=== PATIENT | female | born 1970 | race Caucasian/White ===

== ENCOUNTER 2020-06-20 14:20 | Inpatient (IN) | payer OTHER, SELFPAY ==
--- NOTE | 2020-06-20 | XR_ITS ---
EXAMINATION: XR CHEST CLINICAL INFORMATION: Shortness of breath COMPARISON: Chest x-ray 06/02/2020 TECHNIQUE: Frontal portable view of the chest was obtained. 2:43 PM FINDINGS: No significant abnormality is noted involving the heart, lungs, mediastinum, bony thorax or soft tissues. IMPRESSION: Unremarkable examination.
--- NOTE | 2020-06-20 14:49 | ED.ASTHMA ---
HPI - Asthma General Chief Complaint: Asthma <DANA Saab - Last Filed: 06/20/20 18:05> Stated Complaint: asthma <DANA Saab - Last Filed: 06/20/20 18:05> Time Seen by Provider: 06/20/20 14:41 <DANA Saab Last Filed: 06/20/20 18:05> Source: patient <DANA Saab Last Filed: 06/20/20 18:05> Mode of arrival: ambulatory <DANA Saab - Last Filed: 06/20/20 18:05> Limitations: no limitations <DANA Saab Last Filed: 06/20/20 18:05> History of Present Illness HPI Narrative: 48 y/o female with severe, poorly controlled asthma with multiple admissions to the hospital for ashma exacerbation (last 06/02-/06/04) presenting with wheezing and SOB for the last 4 days after exposure to bleach at work, of which she reports she is allergic to. This is a known trigger for her asthma. She has been compliant with her nebs and Breo inhaler. She also took prednisone 20 mg today and yesterday. No fever, chills. Cough is bringing up white mucus, no blood. <DANA Saab - Last Filed: 06/20/20 18:05> MD complaint: asthma attack and shortness of breath <DANA Saab - Last Filed: 06/20/20 18:05> Onset (ago): day(s) (4) <DANA Saab - Last Filed: 06/20/20 18:05> Severity: moderate <DANA Saab Last Filed: 06/20/20 18:05> Context: allergen exposure and cleaning product exposure <DANA Saab Last Filed: 06/20/20 18:05> Associated symptoms: productive cough and chest pain <DANA Saab Last Filed: 06/20/20 18:05> Asthma History: adult onset, history of frequent attacks, history of prior ED visit and followed by specialist <DANA Saab Last Filed: 06/20/20 18:05> Treatments Prior to Arrival: inhaled bronchodilator and inhaled steroid <DANA Saab Last Filed: 06/20/20 18:05> Related Data Current Asthma Therapy: inhaled bronchodilator, inhaled steroid and recent oral steroid <DANA Saab Last Filed: 06/20/20 18:05> Home Medications: Home Medications Medication Instructions Recorded Confirmed chlorpheniramine-pseudoephed 20 cap PO BID 06/20/20 06/20/20 [D-Amine-SR] folic acid 1 mg PO DAILY 06/20/20 06/20/20 hydrochlorothiazide 25 mg PO DAILY 06/20/20 06/20/20 loratadine 10 mg PO DAILY 06/20/20 06/20/20 <DANA Saab Last Filed: 06/20/20 18:05> Allergies/Adverse Reactions: Allergies Allergy/AdvReac Type Severity Reaction Status Date / Time hydromorphone [From DILAUDID] Allergy Severe SEIZURES Verified 06/20/20 14:26 oxycodone [OXYCODONE] Allergy Severe SEIZURES Verified 06/20/20 14:26 gabapentin [GABAPENTIN] Allergy Intermediate MUSCLE ACHE Verified 06/20/20 14:26 bupropion [From WELLBUTRIN] Allergy Unknown SEIZURES Verified 06/20/20 14:26 phenytoin [Dilantin] Allergy Unknown Unknown Verified 06/20/20 14:26 Wellbutrin Allergy Unknown Unknown Verified 06/20/20 14:26 ENVIRONMENTAL Allergy Unknown NONE Uncoded 06/04/20 17:41 From DILANTIN AdvReac Unknown BODY ACHES Uncoded 06/04/20 17:41 <DANA Saab Last Filed: 06/20/20 18:05> Review of Systems Review of Systems: Constitutional: No Fever, No Chills ENT/Mouth: No sore throat, No Rhinorrhea, No Swallowing Difficulty Eyes: No Eye Pain, No Swelling, No Redness Cardiovascular: positive Chest Pain with coughing, positive SOB, No Orthopnea, No Edema Respiratory: positive Cough Sputum, Wheezing, & dyspnea, no hemoptysis Gastrointestinal: No Nausea, No Vomiting, No Diarrhea, No abdominal Pain, No Hematochezia, No Melena Genitourinary: No Dysuria, No Urinary Frequency, No Hematuria Musculoskeletal: No joint pain, No Myalgias Skin: No Skin Lesions, No rash Neuro: No Weakness, No Numbness, No Dizziness, No Headache Psych: No Anxiety/Panic, No Depression Heme/Lymph: No Bruising, No Lymphadenopathy Endocrine: No Polyuria, No Polydipsia All other 10 point ROS are negative. <DANA Saab - Last Filed: 06/20/20 18:05> [facility] Past Medical History Attestation statement: The following information was validated with the patient. <DANA Saab - Last Filed: 06/20/20 18:05> Medical History: Medical History (Updated 06/20/20 @ 17:53 by DANA Saab) ADHD Alcohol abuse Asthma Cocaine abuse Epilepsy Fibromyalgia Tracheomalacia <DANA Saab - Last Filed: 06/20/20 18:05> Surgical History: Surgical History (Updated 06/20/20 @ 15:25 by DANA Saab) History of cholecystectomy Previous section <DANA Saab - Last Filed: 06/20/20 18:05> Social History Social History: Social History Advance Directives: No Advance Directives Information Provided: No <DANA Saab - Last Filed: 06/20/20 18:05> Physical Exam Vital Signs and I&O and Narrative: Vital Signs and I&O: Vital Signs Pulse 100 06/20/20 17:49 Resp 18 06/20/20 17:49 BP 123/72 06/20/20 17:49 Pulse Ox 93 06/20/20 17:49 Intake & Output 06/20/20 06/20/20 06/21/20 06:59 18:59 06:59 Intake Total 50 / 50 Balance 50 / 50 Intake: Intake, IV Amoun t 50 / 50 Magnesium Sulf ate/H2O 2 gm In 50 / 50 50 ml @ 50 mls /hr IV ONCE ONE Rx#:[id number] Appearance: Alert. Oriented X3. No acute distress. Eyes: Pupils equal, round and reactive to light. ENT: Pharynx normal. Neck: Normal inspection. Neck supple. CVS: Normal heart rate and rhythm. Pulses normal. Respiratory: No respiratory distress. Diffuse expiratory wheezing throughout, no rhonchi Abdomen: obese Soft and nontender. +BS x4 Skin: Skin warm and dry. Normal skin color. Normal skin turgor. No rashes. Extremities: No lower extremity edema. Neuro: Oriented X 3. No motor deficit. No sensory deficit. <DANA Saab - Last Filed: 06/20/20 18:05> Vital Signs and I&O: Vital Signs Pulse 100 06/20/20 17:49 Resp 18 06/20/20 17:49 BP 123/72 06/20/20 17:49 Pulse Ox 93 06/20/20 17:49 Intake & Output 06/20/20 06/20/20 06/21/20 06:59 18:59 06:59 Intake Total 50 / 50 Balance 50 / 50 Intake: Intake, IV Amoun t 50 / 50 Magnesium Sulf ate/H2O 2 gm In 50 / 50 50 ml @ 50 mls /hr IV ONCE ONE Rx#:[id number] <Rudy Fenton DO - Last Filed: 06/20/20 19:25> Course Course Hospital Course: 48 y/o with severe asthma here with SOB and wheezing x4 days. Non-toxic appearing during this visit compared to prior. No hypoxia or increased WOB. Diffusely wheezy - neb, IV steroids and mag ordered for now. Dispo pending results and improvement. <DANA Saab - Last Filed: 06/20/20 18:05> Reevaluation(s) Reevaluation #1: Pateint continues to be wheezy after steroids and mg. would like another nebulizer treatment - spoke with RT who will give now. <DANA Saab - Last Filed: 06/20/20 18:05> Time: 16:54 <DANA Saab - Last Filed: 06/20/20 18:05> Reevaluation #2: Continues to be wheezy and SOB after 1 neb treatments. Dropped sats to 80s and is now on 2L NC. Hospitalist TT for admission. <DANA Saab - Last Filed: 06/20/20 18:05> Time: 17:50 <DANA Saab - Last Filed: 06/20/20 18:05> MDM - Asthma Lab Data Result diagrams: : 06/20/20 15:24 06/20/20 15:24 <DANA Saab - Last Filed: 06/20/20 18:05> Labs: Lab Results 06/20/20 06/20/20 06/20/20 Range/Units 15:24 15:24 15:24 WBC 5.9 (4.8-10.8) X10*3/uL RBC 3.92 L (4.20-5.50) X10*6/uL Hgb 13.3 (12.0-16.0) g/dl Hct 39.2 (37-47) % MCV 100.0 H (80-98) fL MCH 33.9 H (27.0-33.0) pg MCHC 33.9 (31.0-35.0) g/dl RDW 13.3 (11.0-16.0) % Plt Count 286 (160-400) X10*3/uL MPV 9.7 (9.4-12.3) fL Immature Gran % (Auto) 0.2 (0.0-0.4) % Neut % (Auto) 57.1 (45-73) % Lymph % (Auto) 33.7 (20-40) % [place] % (Auto) 7.3 (2-11) % Eos % (Auto) 1.0 (0-4) % Baso % (Auto) 0.7 (0-2) % Neut # (Auto) 3.4 (2.0-8.3) X10*3/uL Lymph # (Auto) 2.0 (1.2-4.9) X10*3/uL [place] # (Auto) 0.4 (0.1-1.2) X10*3/uL Eos # (Auto) 0.1 (0.0-0.4) X10*3/uL Baso # (Auto) 0.0 (0.0-0.2) X10*3/uL Abs Immat Gran (auto) 0.01 (0.00-0.03) X10*3/uL Absolute Nucleated RBC 0.000 (0.0-0.012) X10*3/uL Nucleated RBC % (auto) 0.0 (0.0-0.2) /100WBC Sodium 144 (135-145) mmol/L Potassium 3.5 (3.3-5.1) mmol/l Chloride 110 H (96-108) mmol/L Carbon Dioxide 23 (22-29) mmol/L Anion Gap 15 (12-20) BUN 7 L (9-16) mg/dL Creatinine 0.82 (0.5-1.4) mg/dL Estim Creat Clear Calc TNP Estimated GFR > 60 Random Glucose 172 H (60-115) mg/dL Calcium 8.7 (8.4-10.2) mg/dL Total Bilirubin 0.2 (0.0-1.0) mg/dL Direct Bilirubin < 0.2 (0.0-0.5) mg/dL AST 30 (5-31) U/L ALT 42 H (0-31) U/L Alkaline Phosphatase 67 (39-117) U/L B-Natriuretic Peptide 12 (<100) pg/mL Total Protein 6.5 (6.5-8.0) g/dL Albumin 4.1 (3.5-5.0) g/dL Lipase 8 (8-78) U/L Ethyl Alcohol mg/dL 06/20/20 Range/Units 15:24 WBC (4.8-10.8) X10*3/uL RBC (4.20-5.50) X10*6/uL Hgb (12.0-16.0) g/dl Hct (37-47) % MCV (80-98) fL MCH (27.0-33.0) pg MCHC (31.0-35.0) g/dl RDW (11.0-16.0) % Plt Count (160-400) X10*3/uL MPV (9.4-12.3) fL Immature Gran % (Auto) (0.0-0.4) % Neut % (Auto) (45-73) % Lymph % (Auto) (20-40) % [place] % (Auto) (2-11) % Eos % (Auto) (0-4) % Baso % (Auto) (0-2) % Neut # (Auto) (2.0-8.3) X10*3/uL Lymph # (Auto) (1.2-4.9) X10*3/uL [place] # (Auto) (0.1-1.2) X10*3/uL Eos # (Auto) (0.0-0.4) X10*3/uL Baso # (Auto) (0.0-0.2) X10*3/uL Abs Immat Gran (auto) (0.00-0.03) X10*3/uL Absolute Nucleated RBC (0.0-0.012) X10*3/uL Nucleated RBC % (auto) (0.0-0.2) /100WBC Sodium (135-145) mmol/L Potassium (3.3-5.1) mmol/l Chloride (96-108) mmol/L Carbon Dioxide (22-29) mmol/L Anion Gap (12-20) BUN (9-16) mg/dL Creatinine (0.5-1.4) mg/dL Estim Creat Clear Calc Estimated GFR Random Glucose (60-115) mg/dL Calcium (8.4-10.2) mg/dL Total Bilirubin (0.0-1.0) mg/dL Direct Bilirubin (0.0-0.5) mg/dL AST (5-31) U/L ALT (0-31) U/L Alkaline Phosphatase (39-117) U/L B-Natriuretic Peptide (<100) pg/mL Total Protein (6.5-8.0) g/dL Albumin (3.5-5.0) g/dL Lipase (8-78) U/L Ethyl Alcohol 189 mg/dL <DANA Saab - Last Filed: 06/20/20 18:05> Lab Results 06/20/20 06/20/20 06/20/20 Range/Units 15:24 15:24 15:24 WBC 5.9 (4.8-10.8) X10*3/uL RBC 3.92 L (4.20-5.50) X10*6/uL Hgb 13.3 (12.0-16.0) g/dl Hct 39.2 (37-47) % MCV 100.0 H (80-98) fL MCH 33.9 H (27.0-33.0) pg MCHC 33.9 (31.0-35.0) g/dl RDW 13.3 (11.0-16.0) % Plt Count 286 (160-400) X10*3/uL MPV 9.7 (9.4-12.3) fL Immature Gran % (Auto) 0.2 (0.0-0.4) % Neut % (Auto) 57.1 (45-73) % Lymph % (Auto) 33.7 (20-40) % [place] % (Auto) 7.3 (2-11) % Eos % (Auto) 1.0 (0-4) % Baso % (Auto) 0.7 (0-2) % Neut # (Auto) 3.4 (2.0-8.3) X10*3/uL Lymph # (Auto) 2.0 (1.2-4.9) X10*3/uL [place] # (Auto) 0.4 (0.1-1.2) X10*3/uL Eos # (Auto) 0.1 (0.0-0.4) X10*3/uL Baso # (Auto) 0.0 (0.0-0.2) X10*3/uL Abs Immat Gran (auto) 0.01 (0.00-0.03) X10*3/uL Absolute Nucleated RBC 0.000 (0.0-0.012) X10*3/uL Nucleated RBC % (auto) 0.0 (0.0-0.2) /100WBC Sodium 144 (135-145) mmol/L Potassium 3.5 (3.3-5.1) mmol/l Chloride 110 H (96-108) mmol/L Carbon Dioxide 23 (22-29) mmol/L Anion Gap 15 (12-20) BUN 7 L (9-16) mg/dL Creatinine 0.82 (0.5-1.4) mg/dL Estim Creat Clear Calc TNP Estimated GFR > 60 Random Glucose 172 H (60-115) mg/dL Calcium 8.7 (8.4-10.2) mg/dL Total Bilirubin 0.2 (0.0-1.0) mg/dL Direct Bilirubin < 0.2 (0.0-0.5) mg/dL AST 30 (5-31) U/L ALT 42 H (0-31) U/L Alkaline Phosphatase 67 (39-117) U/L B-Natriuretic Peptide 12 (<100) pg/mL Total Protein 6.5 (6.5-8.0) g/dL Albumin 4.1 (3.5-5.0) g/dL Lipase 8 (8-78) U/L Ethyl Alcohol mg/dL 06/20/20 Range/Units 15:24 WBC (4.8-10.8) X10*3/uL RBC (4.20-5.50) X10*6/uL Hgb (12.0-16.0) g/dl Hct (37-47) % MCV (80-98) fL MCH (27.0-33.0) pg MCHC (31.0-35.0) g/dl RDW (11.0-16.0) % Plt Count (160-400) X10*3/uL MPV (9.4-12.3) fL Immature Gran % (Auto) (0.0-0.4) % Neut % (Auto) (45-73) % Lymph % (Auto) (20-40) % [place] % (Auto) (2-11) % Eos % (Auto) (0-4) % Baso % (Auto) (0-2) % Neut # (Auto) (2.0-8.3) X10*3/uL Lymph # (Auto) (1.2-4.9) X10*3/uL [place] # (Auto) (0.1-1.2) X10*3/uL Eos # (Auto) (0.0-0.4) X10*3/uL Baso # (Auto) (0.0-0.2) X10*3/uL Abs Immat Gran (auto) (0.00-0.03) X10*3/uL Absolute Nucleated RBC (0.0-0.012) X10*3/uL Nucleated RBC % (auto) (0.0-0.2) /100WBC Sodium (135-145) mmol/L Potassium (3.3-5.1) mmol/l Chloride (96-108) mmol/L Carbon Dioxide (22-29) mmol/L Anion Gap (12-20) BUN (9-16) mg/dL Creatinine (0.5-1.4) mg/dL Estim Creat Clear Calc Estimated GFR Random Glucose (60-115) mg/dL Calcium (8.4-10.2) mg/dL Total Bilirubin (0.0-1.0) mg/dL Direct Bilirubin (0.0-0.5) mg/dL AST (5-31) U/L ALT (0-31) U/L Alkaline Phosphatase (39-117) U/L B-Natriuretic Peptide (<100) pg/mL Total Protein (6.5-8.0) g/dL Albumin (3.5-5.0) g/dL Lipase (8-78) U/L Ethyl Alcohol 189 mg/dL <Rudy Fenton DO - Last Filed: 06/20/20 19:25> Discharge Plan Discharge Clinical Impression: Alcohol abuse Asthma Qualifiers: Asthma severity: severe Asthma persistence: persistent Asthma complication type: with acute exacerbation Qualified Code(s): J45.51 - Severe persistent asthma with (acute) exacerbation <DANA Saab - Last Filed: 06/20/20 18:05> Patient Disposition: Admitted As Inpatient <DANA Saab - Last Filed: 06/20/20 18:05>
[2020-06-20] MEDS: methylPREDNISolone Sod Succ/PF 125 MG/2 ML VIAL IVPUSH (15:27)
[2020-06-20] MEDS: Magnesium Sulfate/H2O 2 GM/50 ML PIGGYBACK IV (15:27)
[2020-06-20 15:38] LABS: MANUAL DIFF FLAG NO
[2020-06-20] MEDS: Albuterol/Iprat 2.5/0.5MG 3 ML AMPUL.NEB INHALE ×2 (15:39→17:00)
[2020-06-20 15:40] LABS: Basophils Percent Auto 0.7 % (0-2); Eosinophils Absolute Auto 0.1 X10*3/uL (0.0-0.4); Hematocrit 39.2 % (37-47); Hemoglobin 13.3 g/dl (12.0-16.0); Imm Gran Abs Auto 0.01 X10*3/uL (0.00-0.03); Imm Gran Pct Auto 0.2 % (0.0-0.4); Lymphocytes Percent Auto 33.7 % (20-40); Mean Corpuscular HGB Conc 33.9 g/dl (31.0-35.0); Mean Corpuscular Hemoglobin 33.9 pg (27.0-33.0); Mean Platelet Volume 9.7 fL (9.4-12.3); Monocytes Absolute Auto 0.4 X10*3/uL (0.1-1.2); Monocytes Percent Auto 7.3 % (2-11); Neutrophils Absolute Auto 3.4 X10*3/uL (2.0-8.3); Neutrophils Percent Auto 57.1 % (45-73); Platelet Count 286 X10*3/uL (160-400); Red Blood Count 3.92 X10*6/uL (4.20-5.50); Red Cell Distribution Width 13.3 % (11.0-16.0); White Blood Count 5.9 X10*3/uL (4.8-10.8)
[2020-06-20 16:04] LABS: Alanine Aminotransferase 42 U/L (0-31); Albumin Level 4.1 g/dL (3.5-5.0); Anion Gap 15 (12-20); Aspartate Amino Transferase 30 U/L (5-31); Bilirubin Direct < 0.2 mg/dL (0.0-0.5); Bilirubin Total 0.2 mg/dL (0.0-1.0); Blood Urea Nitrogen 7 mg/dL (9-16); Calcium 8.7 mg/dL (8.4-10.2); Carbon Dioxide 23 mmol/L (22-29); Chloride 110 mmol/L (96-108); Estimated Glomerular Filt Rate > 60; Ethanol 189 mg/dL; Glucose Random 172 mg/dL (60-115); Lipase 8 U/L (8-78); Potassium 3.5 mmol/l (3.3-5.1); Sodium 144 mmol/L (135-145); Total Protein 6.5 g/dL (6.5-8.0)
[2020-06-20 16:08] LABS: B Type Natriuretic Peptide 12 pg/mL (<100)
[2020-06-20 16:19] LABS: Alkaline Phosphatase 67 U/L (39-117)
[2020-06-20 17:49] VITALS: BP 123/72; PULSE 100; RESP 18; O2SAT 93
--- NOTE | 2020-06-20 19:56 | P.HPIM_ITS ---
History of Present Illness Date of Service: 06/20/20 Chief Complaint: shortness of breath this is a 49-year-old female with history of asthma / COPD who presents to the emergency department with shortness of breath. Patient states on Monday a co-worker was cleaning with bleach and she had an asthma attack. She is allergic to bleach. Since that time she reports being more short of breath. She has been using her nebulizer machine and her emergency stash of oral prednisone. She has intermittent cough primarily at night. She denies any associated fever or chills. She denies any recent sick contacts. In the emergency department she was afebrile. Lab work revealed no leukocytosis. Chest x-ray showed no evidence of pneumonia. She received IV Solu-Medrol and bronchodilator treatments but continued to have significant wheezing therefore the decision was made to admit her to the hospital for further management. She was initially requiring supplemental oxygen however on my evaluation she was saturating 95% on room air. Review of Systems Review of Systems: Yes all other systems are reviewed and are negative Constitutional: Constitutional: Denies chills and Denies fever(s) Cardiovascular: Cardiovascular: Denies chest pain and Reports dyspnea Respiratory: Respiratory: Reports cough and Reports dyspnea Gastrointestinal: Gastrointestinal: Denies abdominal pain, Denies nausea and Denies vomiting [facility] Medical History (Updated 06/20/20 @ 20:15 by DANA Garcia) ADHD Alcohol abuse Asthma-COPD overlap syndrome Cocaine abuse Epilepsy Fibromyalgia History of suicide attempt HTN (hypertension) Tracheomalacia Functional capacity: independent ambulation Pertinent family history: Diabetes, hypertension Surgical History (Updated 06/20/20 @ 15:25 by DANA Saab) History of cholecystectomy Previous section Social History (Updated 06/20/20 @ 20:11 by DANA Garcia) Alcohol intake: current Alcohol type: hard liquor Smoking Status: Former smoker Tobacco Type: Cigarette Smoking Quit Date: 04/19/2020 Substance Use Type: Crack/Cocaine and Marijuana Substance Use Frequency: Occasionally Advance Directives: No Advance Directives Information Provided: No Meds Allergies Allergy/AdvReac Type Severity Reaction Status Date / Time hydromorphone [From DILAUDID] Allergy Severe SEIZURES Verified 06/20/20 14:26 oxycodone [OXYCODONE] Allergy Severe SEIZURES Verified 06/20/20 14:26 gabapentin [GABAPENTIN] Allergy Intermediate MUSCLE ACHE Verified 06/20/20 14:26 bupropion [From WELLBUTRIN] Allergy Unknown SEIZURES Verified 06/20/20 14:26 phenytoin [Dilantin] Allergy Unknown Unknown Verified 06/20/20 14:26 Wellbutrin Allergy Unknown Unknown Verified 06/20/20 14:26 ENVIRONMENTAL Allergy Unknown NONE Uncoded 06/04/20 17:41 From DILANTIN AdvReac Unknown BODY ACHES Uncoded 06/04/20 17:41 Home Medications Medication Instructions Recorded Confirmed Type chlorpheniramine-pseudoephed 20 cap PO BID 06/20/20 06/20/20 History [D-Amine-SR] folic acid 1 mg PO DAILY 06/20/20 06/20/20 History hydrochlorothiazide 25 mg PO DAILY 06/20/20 06/20/20 History loratadine 10 mg PO DAILY 06/20/20 06/20/20 History Physical Exam Vital Signs and Narrative: Vital Signs: Last Vital Signs Pulse 100 06/20/20 17:49 Resp 18 06/20/20 17:49 BP 123/72 06/20/20 17:49 Pulse Ox 93 06/20/20 17:49 Const: Nutritional Appearance: well nourished Orientation/consciousness: patient oriented x3 HENMT: Head: Yes normocephalic and Yes atraumatic Eyes: Sclerae: sclerae normal Chest: Chest palpation & inspection: normal inspection of the chest Resp: Effort & Inspection: normal respiratory effort and able to speak in complete sentences Auscultation: wheezes throughout Cardio: Rate: regular rate Rhythm: regular rhythm GI: Palpation (GI): Soft to palpation and nontender Skin: General skin exam: no rashes or lesions noted Neuro: General: patient oriented x3 Cranial nerves: Yes CN's II-XII intact bilaterally and Yes Bilaterally intact EOM present Extrem: General: Yes normal to inspection Results Labs Labs: Laboratory Tests 06/20/20 06/20/20 06/20/20 15:24 15:24 15:24 WBC 5.9 RBC 3.92 L Hgb 13.3 Hct 39.2 MCV 100.0 H MCH 33.9 H MCHC 33.9 RDW 13.3 Plt Count 286 MPV 9.7 Immature Gran % (Auto) 0.2 Neut % (Auto) 57.1 Lymph % (Auto) 33.7 [place] % (Auto) 7.3 Eos % (Auto) 1.0 Baso % (Auto) 0.7 Neut # (Auto) 3.4 Lymph # (Auto) 2.0 [place] # (Auto) 0.4 Eos # (Auto) 0.1 Baso # (Auto) 0.0 Abs Immat Gran (auto) 0.01 Absolute Nucleated RBC 0.000 Nucleated RBC % (auto) 0.0 Sodium 144 Potassium 3.5 Chloride 110 H Carbon Dioxide 23 Anion Gap 15 BUN 7 L Creatinine 0.82 Estim Creat Clear Calc TNP Estimated GFR > 60 Random Glucose 172 H Calcium 8.7 Total Bilirubin 0.2 Direct Bilirubin < 0.2 AST 30 ALT 42 H Alkaline Phosphatase 67 B-Natriuretic Peptide 12 Total Protein 6.5 Albumin 4.1 Lipase 8 Ethyl Alcohol 06/20/20 15:24 WBC RBC Hgb Hct MCV MCH MCHC RDW Plt Count MPV Immature Gran % (Auto) Neut % (Auto) Lymph % (Auto) [place] % (Auto) Eos % (Auto) Baso % (Auto) Neut # (Auto) Lymph # (Auto) [place] # (Auto) Eos # (Auto) Baso # (Auto) Abs Immat Gran (auto) Absolute Nucleated RBC Nucleated RBC % (auto) Sodium Potassium Chloride Carbon Dioxide Anion Gap BUN Creatinine Estim Creat Clear Calc Estimated GFR Random Glucose Calcium Total Bilirubin Direct Bilirubin AST ALT Alkaline Phosphatase B-Natriuretic Peptide Total Protein Albumin Lipase Ethyl Alcohol 189 Assessment and Plan (1) Asthma-COPD overlap syndrome: Status: Acute acute exacerbation -IV solumedrol -scheduled and prn bronchodilators (2) HTN (hypertension): Qualifiers: Hypertension type: essential hypertension Qualified Code(s): I10 - Essential (primary) hypertension Status: Acute -BP controlled. -continue HCTZ (3) Epilepsy: Qualifiers: Epilepsy type: unspecified Intractability: not intractable Status epilepticus: without status epilepticus Qualified Code(s): G40.909 - Epilepsy, unspecified, not intractable, without status epilepticus Problem details: no longer on medications Status: Acute (4) Alcohol abuse: Status: Acute no history of etoh withdrawal. no current sign of withdrawal. -monitor on ciwa, start treatment if patient becomes symptomatic Quality VTE Deep Vein Thrombosis/Pulmonary Embolism Present on Admission: No
--- NOTE | 2020-06-20 19:57 | PC.NURSE ---
pt a&o, no sign of respiratory distress. pt sitting up in bed. pt is able to speak in full sentences. no retractions note. report given to receiving RN.
[2020-06-20 21:18] VITALS: BP 121/57; PULSE 104; RESP 18; TEMP 36.1; O2SAT 97
[2020-06-20] MEDS: hydrOXYzine HCL 10 MG TABLET PO (21:54)
[2020-06-20] MEDS: Enoxaparin Sodium 40 MG/0.4 ML SYRINGE SUBCUT (21:54)
[2020-06-20] MEDS: 0.9 % Sodium Chloride Flush 3 ML SYRINGE 2 ML IVFLUSH (21:55)
[2020-06-20 23:03] VITALS: BMI 34.1
[2020-06-20 23:20] VITALS: BP 135/78; PULSE 99; RESP 18; TEMP 36.9; O2SAT 95
[2020-06-20 23:40] VITALS: O2SAT 95
[2020-06-21 01:01] LABS: Glucose Urine UA >=1000 MG/DL (NEG); Leukocyte Esterase Urine NEG (NEG); Nitrite Urine NEG (NEG); Urine Blood TRACE (NEG); Urine Ketones 5 MG/DL (NEG); Urine Protein NEG (NEG-TRACE)
[2020-06-21 01:02] LABS: Appearance Urine CLEAR; Color Urine STRAW
[2020-06-21 01:09] LABS: Amphetamine Screen Urine Not Detected (Not Detect); Barbiturates, Urine Not Detected (Not Detect); Benzodiazepines Screen Urine Not Detected (Not Detect); Cannabinoid Screen Urine Not Detected (Not Detect); Cocaine Screen Urine Not Detected (Not Detect); Opiate Screen Urine Not Detected (Not Detect); Phencyclidine Screen Urine Not Detected (Not Detect); RBC Urine 0 /HPF (0); Squamous Epithelial Cell Urine 2+ /LPF; WBC Urine 0-2 /HPF (0-4)
[2020-06-21] MEDS: Albuterol Sulfate (0.083%) 2.5 MG/3 ML VIAL.NEB INHALE (01:33)
[2020-06-21 03:20] VITALS: BP 144/77; PULSE 93; RESP 18; TEMP 36.9; O2SAT 95
[2020-06-21 03:58] VITALS: O2SAT 95
[2020-06-21] MEDS: 0.9 % Sodium Chloride Flush 3 ML SYRINGE 2 ML IVFLUSH (07:26)
[2020-06-21] MEDS: Albuterol/Iprat 2.5/0.5MG 3 ML AMPUL.NEB INHALE ×2 (07:41→11:10)
[2020-06-21 07:45] VITALS: BP 147/89; PULSE 90; RESP 20; TEMP 36.4; O2SAT 94
[2020-06-21 08:00] VITALS: O2SAT 94
[2020-06-21 08:06] LABS: Estimated Average Glucose 134 mg/dL; Hemoglobin A1c % 6.3 %
[2020-06-21] MEDS: hydroCHLOROthiazide 25 MG TABLET PO (08:46)
[2020-06-21] MEDS: Folic Acid 1 MG TABLET PO (08:46)
[2020-06-21] MEDS: Loratadine 10 MG TABLET PO (08:46)
--- NOTE | 2020-06-21 10:09 | PM.DS ---
DS: Providers Provider Date of admission: 06/20/20 20:42 Primary care physician: Nonstaff Physician DS: Diagnosis Discharge Diagnosis (1) Asthma-COPD overlap syndrome: Status: Acute (2) HTN (hypertension): Status: Acute (3) Epilepsy: Status: Acute Problem details: no longer on medications (4) Alcohol abuse: Status: Acute (5) Acute asthma exacerbation: Status: Acute DS: Summary Hospital Course Hospital Course: patient was admitted for acute asthma / COPD exacerbation. She was given steroids and bronchodilators. Patient improved significantly now feels close to baseline. She will be discharged home on 5 more days of p.o. prednisone 40 mg daily. Time Spent with Patient Time attestation: Total time spent providing and/or coordinating discharge services: Quality: VTE Deep Vein Thrombosis/Pulmonary Embolism Present on Admission: No Physical Exam Vital Signs and I&O and Narrative: Vital Signs and I&O: Vital Signs Temp 97.6 F 06/21/20 07:45 Pulse 90 06/21/20 07:45 Resp 20 06/21/20 07:45 BP 147/89 H 06/21/20 07:45 Pulse Ox 94 06/21/20 08:00 Intake & Output 06/20/20 06/21/20 06/21/20 18:59 06:59 18:59 Intake Total 50 / 810 760 / 810 250 / 250 Output Total 500 / 500 300 / 300 Balance 50 / 310 260 / 310 -50 / -50 Urine Output (Aver age ml/kg/hr) 0.51 0.30 Weight 82.024 kg Intake: Intake, Oral [place] unt 760 / 760 250 / 250 Intake, IV Amoun t 50 / 50 Magnesium Sulf ate/H2O 2 gm In 50 / 50 50 ml @ 50 mls /hr IV ONCE ONE Rx#:[id number] Output: Output, Urine Am ount 500 / 500 300 / 300 Other: Meal Refused No NPO No Breakfast % Eate n 100% Urine Bathroom Urine Color Yellow Body Mass Index 34.1 Resp: Auscultation: clear to auscultation bilaterally and wheezes (minimal) Cardio: Rhythm: regular rhythm Heart sounds: S1 normal heart sound present and S2 normal heart sound present DS: Data Data Completed and Pending Labs on day of discharge: Labs from last 24 hours 06/21/20 06/21/20 06/20/20 00:50 00:50 15:24 WBC RBC Hgb Hct MCV MCH MCHC RDW Plt Count MPV Immature Gran % (Auto) Neut % (Auto) Lymph % (Auto) [place] % (Auto) Eos % (Auto) Baso % (Auto) Neut # (Auto) Lymph # (Auto) [place] # (Auto) Eos # (Auto) Baso # (Auto) Abs Immat Gran (auto) Absolute Nucleated RBC Nucleated RBC % (auto) Sodium Potassium Chloride Carbon Dioxide Anion Gap BUN Creatinine Estim Creat Clear Calc Estimated GFR Random Glucose Estimat Average Glucose 134 Hemoglobin A1c % 6.3 Calcium Total Bilirubin Direct Bilirubin AST ALT Alkaline Phosphatase B-Natriuretic Peptide Total Protein Albumin Lipase Urine Color STRAW Urine Appearance CLEAR Urine pH 6.0 Ur Specific [place] 1.010 Urine Protein NEG Urine Glucose (UA) >=1000 H Urine Ketones 5 Urine Blood TRACE Urine Nitrite NEG Ur Leukocyte Esterase NEG Urine RBC 0 Urine WBC 0-2 Ur Squamous Epith Cells 2+ Urine Bacteria NONE Urine Opiates Screen Not Detected Ur Barbiturates Screen Not Detected Ur Phencyclidine Scrn Not Detected Ur Amphetamines Screen Not Detected U Benzodiazepines Scrn Not Detected Urine Cocaine Screen Not Detected U Marijuana (THC) Screen Not Detected Ethyl Alcohol 06/20/20 06/20/20 06/20/20 15:24 15:24 15:24 WBC RBC Hgb Hct MCV MCH MCHC RDW Plt Count MPV Immature Gran % (Auto) Neut % (Auto) Lymph % (Auto) [place] % (Auto) Eos % (Auto) Baso % (Auto) Neut # (Auto) Lymph # (Auto) [place] # (Auto) Eos # (Auto) Baso # (Auto) Abs Immat Gran (auto) Absolute Nucleated RBC Nucleated RBC % (auto) Sodium 144 Potassium 3.5 Chloride 110 H Carbon Dioxide 23 Anion Gap 15 BUN 7 L Creatinine 0.82 Estim Creat Clear Calc TNP Estimated GFR > 60 Random Glucose 172 H Estimat Average Glucose Hemoglobin A1c % Calcium 8.7 Total Bilirubin 0.2 Direct Bilirubin < 0.2 AST 30 ALT 42 H Alkaline Phosphatase 67 B-Natriuretic Peptide 12 Total Protein 6.5 Albumin 4.1 Lipase 8 Urine Color Urine Appearance Urine pH Ur Specific [place] Urine Protein Urine Glucose (UA) Urine Ketones Urine Blood Urine Nitrite Ur Leukocyte Esterase Urine RBC Urine WBC Ur Squamous Epith Cells Urine Bacteria Urine Opiates Screen Ur Barbiturates Screen Ur Phencyclidine Scrn Ur Amphetamines Screen U Benzodiazepines Scrn Urine Cocaine Screen U Marijuana (THC) Screen Ethyl Alcohol 189 06/20/20 15:24 WBC 5.9 RBC 3.92 L Hgb 13.3 Hct 39.2 MCV 100.0 H MCH 33.9 H MCHC 33.9 RDW 13.3 Plt Count 286 MPV 9.7 Immature Gran % (Auto) 0.2 Neut % (Auto) 57.1 Lymph % (Auto) 33.7 [place] % (Auto) 7.3 Eos % (Auto) 1.0 Baso % (Auto) 0.7 Neut # (Auto) 3.4 Lymph # (Auto) 2.0 [place] # (Auto) 0.4 Eos # (Auto) 0.1 Baso # (Auto) 0.0 Abs Immat Gran (auto) 0.01 Absolute Nucleated RBC 0.000 Nucleated RBC % (auto) 0.0 Sodium Potassium Chloride Carbon Dioxide Anion Gap BUN Creatinine Estim Creat Clear Calc Estimated GFR Random Glucose Estimat Average Glucose Hemoglobin A1c % Calcium Total Bilirubin Direct Bilirubin AST ALT Alkaline Phosphatase B-Natriuretic Peptide Total Protein Albumin Lipase Urine Color Urine Appearance Urine pH Ur Specific [place] Urine Protein Urine Glucose (UA) Urine Ketones Urine Blood Urine Nitrite Ur Leukocyte Esterase Urine RBC Urine WBC Ur Squamous Epith Cells Urine Bacteria Urine Opiates Screen Ur Barbiturates Screen Ur Phencyclidine Scrn Ur Amphetamines Screen U Benzodiazepines Scrn Urine Cocaine Screen U Marijuana (THC) Screen Ethyl Alcohol Discharge Plan Discharge Patient Disposition: Home, Self-Care Referrals: Physician,Nonstaff [Primary Care Provider] - Discharge Medications: New prednisone 20 mg tablet 40 mg PO DAILY Qty: 10 RF: 0 Continued chlorpheniramine-pseudoephed 8-120 mg Capsule,Extended Release 12 Hr 20 cap PO BID RF: 0 folic acid 1 mg Tablet 1 mg PO DAILY RF: 0 hydrochlorothiazide 25 mg Tablet 25 mg PO DAILY RF: 0 loratadine 10 mg Capsule 10 mg PO DAILY RF: 0 Discharge Orders: Discharge Order (Routine); Ordered 06/21/20 Ordered By: Leonidas Tejada Activity on Discharge: As tolerated Visit Report Forms: Patient Portal Discharge page Care Plan Goals: recovery Health Concerns: COPD/asthma Plan of Treatment: Prednisone
--- NOTE | 2020-06-21 10:33 | MHC.CM.PN ---
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 Patient has a history of SI, ADHD,ETOH and Cocaine (Grandchildren are cared for by their parents, not Patient and Patient's toxicology appears negative for drugs). Patient has already been medically cleared for dc to home, no services.PCP is Dr. Isabel Naqvi and Patient's is her HCP.
== END 2020-06-21 11:32 | disposition home or self-care (01) | DRG 202 ==
LOC: HO.ED 19:40 → HO.IMC 20:43
PROVIDERS: Physician Assistant; Physician Assistant Medical; Admitting Provider Internal Medicine; Visit Provider Internal Medicine
DX: J45.901 Unspecified asthma with (acute) exacerbation (principal); J44.1 Chronic obstructive pulmonary disease with (acute) exacerbation; I10 Essential (primary) hypertension; G40.909 Epilepsy, unspecified, not intractable, without status epilepticus; F10.10 Alcohol abuse, uncomplicated; Z87.891 Personal history of nicotine dependence; Z88.5 Allergy status to narcotic agent; Z79.899 Other long term (current) drug therapy
CPT/HCPCS: 36415; 71045; 80048; 80076; 80307; 80320; 81001; 81003; 83036; 83690; 83880; 85025; 96365; 96375; 99283; 99285; J1650; J2930; J3475

== ENCOUNTER 2020-07-26 20:03 | Inpatient (IN) | payer OTHER, SELFPAY ==
[2020-07-26 20:10] VITALS: BP 113/77; PULSE 110; RESP 26; TEMP 36.3; O2SAT 88; BMI 31.9
--- NOTE | 2020-07-26 20:45 | ECG_ITS ---
Test Reason : SOB Blood Pressure : / mmHG Vent. Rate : 104 BPM Atrial Rate : 104 BPM P-R Int : 154 ms QRS Dur : 102 ms QT Int : 396 ms P-R-T Axes : 063 040 065 degrees QTc Int : 520 ms Sinus tachycardia Nonspecific T wave abnormality Abnormal ECG When compared with ECG of 02-JUN-2020 13:19, Heart rate has increased T wave amplitude has decreased in Lateral leads Referred By: Generic ED Physician Electronically Signed By:MONIQUE BROOKS MD
--- NOTE | 2020-07-26 20:57 | XR_ITS ---
EXAMINATION: XR CHEST CLINICAL INFORMATION: Shortness of breath COMPARISON: 06/20/2020 TECHNIQUE: Frontal view of the chest was obtained. FINDINGS: No convincing significant abnormality is noted involving the heart, lungs, mediastinum, bony thorax or soft tissues. Some minimal left basilar atelectasis is present. XR/XR chest 1V IMPRESSION: No acute intrathoracic disease.
[2020-07-26] MEDS: Albuterol Sulfate (0.083%) 2.5 MG/3 ML VIAL.NEB 10 MG INHALE (21:04)
[2020-07-26 21:08] LABS: MANUAL DIFF FLAG NO
[2020-07-26 21:10] LABS: Basophils Absolute Auto 0.1 X10*3/uL (0.0-0.2); Basophils Percent Auto 0.6 % (0-2); Eosinophils Absolute Auto 0.3 X10*3/uL (0.0-0.4); Eosinophils Percent Auto 2.5 % (0-4); Hematocrit 37.7 % (37-47); Imm Gran Abs Auto 0.05 X10*3/uL (0.00-0.03); Imm Gran Pct Auto 0.4 % (0.0-0.4); Lymphocytes Absolute Auto 2.1 X10*3/uL (1.2-4.9); Lymphocytes Percent Auto 15.4 % (20-40); Mean Corpuscular HGB Conc 34.5 g/dl (31.0-35.0); Mean Corpuscular Hemoglobin 34.3 pg (27.0-33.0); Mean Corpuscular Volume 99.5 fL (80-98); Mean Platelet Volume 9.9 fL (9.4-12.3); Monocytes Absolute Auto 1.2 X10*3/uL (0.1-1.2); Monocytes Percent Auto 8.9 % (2-11); Neutrophils Percent Auto 72.2 % (45-73); Platelet Count 280 X10*3/uL (160-400); Red Blood Count 3.79 X10*6/uL (4.20-5.50); Red Cell Distribution Width 13.3 % (11.0-16.0); White Blood Count 13.9 X10*3/uL (4.8-10.8)
[2020-07-26] MEDS: methylPREDNISolone Sod Succ/PF 125 MG/2 ML VIAL IVPUSH (21:18)
[2020-07-26] MEDS: Magnesium Sulfate/H2O 2 GM/50 ML PIGGYBACK IV (21:18)
[2020-07-26 21:19] LABS: Glucose Urine UA NEG (NEG); Leukocyte Esterase Urine NEG (NEG); Nitrite Urine NEG (NEG); PH 5.5 (5.0-8.0); Urine Blood TRACE (NEG); Urine Ketones NEG (NEG); Urine Protein NEG (NEG-TRACE)
[2020-07-26 21:20] LABS: Appearance Urine CLEAR; Color Urine YELLOW
--- NOTE | 2020-07-26 21:23 | PC.NURSE ---
patient medicated per order
[2020-07-26 21:24] LABS: Bacteria Urine 1+ /LPF; RBC Urine 0-2 /HPF (0); Squamous Epithelial Cell Urine 1+ /LPF; WBC Urine 0 /HPF (0-4)
[2020-07-26 21:29] VITALS: BP 143/68; PULSE 105; RESP 22; TEMP 36.7; O2SAT 97
[2020-07-26 21:34] LABS: Anion Gap 15 (12-20); Blood Urea Nitrogen 6 mg/dL (9-16); Calcium 8.5 mg/dL (8.4-10.2); Carbon Dioxide 25 mmol/L (22-29); Chloride 106 mmol/L (96-108); Creatinine Clr Calc Pharmacy 95.1; Estimated Glomerular Filt Rate > 60; Glucose Random 128 mg/dL (60-115); Potassium 2.9 mmol/l (3.3-5.1); Sodium 143 mmol/L (135-145)
[2020-07-26 21:37] LABS: B Type Natriuretic Peptide 18 pg/mL (<100); Troponin-I High Sensitivity 5.3 ng/L (<3.5-17.0)
[2020-07-26 21:43] LABS: Lactic Acid 2.1 mmol/L (0.5-2.0)
[2020-07-26 22:00] VITALS: BP 112/50; PULSE 100; RESP 16; TEMP 36.9; O2SAT 3
--- NOTE | 2020-07-26 22:38 | ED.GENADULT ---
HPI - General Adult General Chief complaint: Dyspnea Stated complaint: asthma Time Seen by Provider: 07/26/20 20:51 Source: patient Mode of arrival: ambulatory Limitations: no limitations History of Present Illness HPI narrative: patient comes emergency room complaining of shortness of breath. Patient states her asthma has been acting up in the last couple of days. The worse it was today. Patient tried using several nebulization treatments, steroids with no relief. Patient called EMS because she was not getting any better and the wheezing kept getting worse. patient states that her cough is at baseline, no purulence in the sputum. MD complaint: Asthma exacerbation Related Data Home Medications Medication Instructions Recorded Confirmed hydrochlorothiazide 25 mg PO DAILY 06/20/20 07/26/20 albuterol sulfate 1 puff PO Q4H PRN 07/26/20 07/26/20 albuterol sulfate 3 ml INHALATION Q4-6H PRN 07/26/20 07/26/20 dextroamphetamine-amphetamine 1 tab PO BID 07/26/20 07/26/20 ipratropium-albuterol 3 ml INHALATION Q4-6H PRN 07/26/20 07/26/20 Allergies Allergy/AdvReac Type Severity Reaction Status Date / Time hydromorphone [From DILAUDID] Allergy Severe SEIZURES Verified 06/20/20 14:26 oxycodone [OXYCODONE] Allergy Severe SEIZURES Verified 06/20/20 14:26 gabapentin [GABAPENTIN] Allergy Intermediate MUSCLE ACHE Verified 06/20/20 14:26 bupropion [From WELLBUTRIN] Allergy Unknown SEIZURES Verified 06/20/20 14:26 phenytoin [Dilantin] Allergy Unknown Unknown Verified 06/20/20 14:26 Wellbutrin Allergy Unknown Unknown Verified 06/20/20 14:26 ENVIRONMENTAL Allergy Unknown NONE Uncoded 06/04/20 17:41 From DILANTIN AdvReac Unknown BODY ACHES Uncoded 06/04/20 17:41 Review of Systems Review of Systems: Constitutional : No Weight loss, No Fever, No Chills, No Night Sweats, No Fatigue, No Malaise ENT/Mouth : No Hearing loss, No Ear Pain, No Nasal Congestion, No Sinus Pain, No Hoarseness, No sore throat, No Rhinorrhea, No Swallowing Difficulty Eyes: No Eye Pain, No Swelling, No Redness, No Foreign Body, No Discharge, No Vision Changes Cardiovascular : No Chest Pain, No SOB, No Dyspnea on Exertion, No Orthopnea, No Edema, No Palpitations Respiratory : patient complaining of wheezing, dyspnea Gastrointestinal : No Nausea, No Vomiting, No Diarrhea, No Constipation, No abdominal Pain, No Hematochezia, No Melena Genitourinary : no irregular bleeding, No Dysuria, No Urinary Frequency, No Hematuria, No Urinary Incontinence, No Urgency, No Flank Pain, No Urinary Flow Changes, No Hesitancy Musculoskeletal : No joint pain, No Myalgias, No Joint Swelling Skin : No Skin Lesions, No rash Neuro : No Weakness, No Numbness, No Paresthesias, No Loss of Consciousness, No Dizziness, No Headache Psych : No Anxiety/Panic, No Depression, No SI/HI/AH/VH, No Social Issues, Heme/Lymph: No Bruising, No Bleeding,No Lymphadenopathy Endocrine : No Polyuria, No Polydipsia, No Temperature Intolerance PMFSH Past Medical History Medical History ADHD Alcohol abuse Asthma-COPD overlap syndrome Cocaine abuse Epilepsy Fibromyalgia History of suicide attempt HTN (hypertension) Sleep apnea Tracheomalacia Surgical History History of cholecystectomy Previous section Social History Social History (Updated 06/20/20 @ 20:11 by DANA Garcia) Household Members: Family Housing: House Alcohol intake: never Smoking Status: Former smoker Tobacco Type: Cigarette Use of substances other than those prescribed or required for medical reasons: Yes Substance Use Type: Marijuana Substance Use Frequency: Monthly Advance Directives: No Advance Directives Information Provided: No service: No Physical Exam Vital Signs: Vital Signs: Last Vital Signs Temp 98.1 F 07/26/20 21:29 Pulse 105 H 07/26/20 21:29 Resp 22 H 07/26/20 21: BP 143/68 H 07/26/20 21:29 Pulse Ox 97 07/26/20 21:29 Body Mass Index 31.9 Appearance: Alert. Oriented X3. No acute distress. Eyes: Pupils equal, round and reactive to light. ENT: Pharynx normal. Neck: Normal inspection. Neck supple. No lymph nodes noted. No crepitus CVS: Normal heart rate and rhythm. Pulses normal. Normal S1 and S2 Respiratory: Bilateral wheezing, moderate air movement Abdomen: Soft and nontender. No rigidity. No distention. good BS x4 Skin: Skin warm and dry. Normal skin color. Normal skin turgor. Extremities: No lower extremity edema. No lower extremity edema. No Lacerations. No Rash Neuro: Oriented X 3. No motor deficit. No sensory deficit. Moving all extermities. No slurred speech. Course Course Course Narrative: after an hour long treatment, patient's oxygen saturation remains 94-96%, wheezing improved but still present. Patient has history of asthma exacerbation and COPD, at this time COPD exacerbation is not suspected. Patient's wheezing likely secondary to an asthma exacerbation. Patient's lactic acid secondary from multiple nebulization treatments and white blood cell count secondary to steroids. One dose of empiric treatments will be given. Patient admitted to the hospital Medical Decision Making Lab Data Result diagrams: 07/26/20 20:58 07/26/20 20:58 Labs: Lab Results 07/26/20 07/26/20 07/26/20 Range/Units 20:58 20:58 20:58 WBC 13.9 H (4.8-10.8) X10*3/uL RBC 3.79 L (4.20-5.50) X10*6/uL Hgb 13.0 (12.0-16.0) g/dl Hct 37.7 (37-47) % MCV 99.5 H (80-98) fL MCH 34.3 H (27.0-33.0) pg MCHC 34.5 (31.0-35.0) g/dl RDW 13.3 (11.0-16.0) % Plt Count 280 (160-400) X10*3/uL MPV 9.9 (9.4-12.3) fL Immature Gran % (Auto) 0.4 (0.0-0.4) % Neut % (Auto) 72.2 (45-73) % Lymph % (Auto) 15.4 L (20-40) % [place] % (Auto) 8.9 (2-11) % Eos % (Auto) 2.5 (0-4) % Baso % (Auto) 0.6 (0-2) % Lymph # (Auto) 2.1 (1.2-4.9) X10*3/uL [place] # (Auto) 1.2 (0.1-1.2) X10*3/uL Eos # (Auto) 0.3 (0.0-0.4) X10*3/uL Baso # (Auto) 0.1 (0.0-0.2) X10*3/uL Abs Immat Gran (auto) 0.05 H (0.00-0.03) X10*3/uL Absolute Neuts (auto) 10.0 H (2.0-8.3) X10*3/uL Absolute Nucleated RBC 0.000 (0.0-0.012) X10*3/uL Nucleated RBC % (auto) 0.0 (0.0-0.2) /100WBC Hold Blue Top SEE NOTE Sodium 143 (135-145) mmol/L Potassium 2.9 L (3.3-5.1) mmol/l Chloride 106 (96-108) mmol/L Carbon Dioxide 25 (22-29) mmol/L Anion Gap 15 (12-20) BUN 6 L (9-16) mg/dL Creatinine 0.67 (0.5-1.4) mg/dL Estim Creat Clear Calc 95.1 Estimated GFR > 60 Random Glucose 128 H (60-115) mg/dL Lactic Acid (0.5-2.0) mmol/L Calcium 8.5 (8.4-10.2) mg/dL Troponin I High Sens (<3.5-17.0) ng/L B-Natriuretic Peptide (<100) pg/mL Urine Color Urine Appearance Urine pH (5.0-8.0) Ur Specific [place] (1.005-1.025) Urine Protein (NEG-TRACE) MG/DL Urine Glucose (UA) (NEG) MG/DL Urine Ketones (NEG) MG/DL Urine Blood (NEG) Urine Nitrite (NEG) Ur Leukocyte Esterase (NEG) Urine RBC (0) /HPF Urine WBC (0-4) /HPF Ur Squamous Epith Cells /LPF Urine Bacteria /LPF 07/26/20 07/26/20 07/26/20 Range/Units 20:58 21:07 21:07 WBC (4.8-10.8) X10*3/uL RBC (4.20-5.50) X10*6/uL Hgb (12.0-16.0) g/dl Hct (37-47) % MCV (80-98) fL MCH (27.0-33.0) pg MCHC (31.0-35.0) g/dl RDW (11.0-16.0) % Plt Count (160-400) X10*3/uL MPV (9.4-12.3) fL Immature Gran % (Auto) (0.0-0.4) % Neut % (Auto) (45-73) % Lymph % (Auto) (20-40) % [place] % (Auto) (2-11) % Eos % (Auto) (0-4) % Baso % (Auto) (0-2) % Lymph # (Auto) (1.2-4.9) X10*3/uL [place] # (Auto) (0.1-1.2) X10*3/uL Eos # (Auto) (0.0-0.4) X10*3/uL Baso # (Auto) (0.0-0.2) X10*3/uL Abs Immat Gran (auto) (0.00-0.03) X10*3/uL Absolute Neuts (auto) (2.0-8.3) X10*3/uL Absolute Nucleated RBC (0.0-0.012) X10*3/uL Nucleated RBC % (auto) (0.0-0.2) /100WBC Hold Blue Top Sodium (135-145) mmol/L Potassium (3.3-5.1) mmol/l Chloride (96-108) mmol/L Carbon Dioxide (22-29) mmol/L Anion Gap (12-20) BUN (9-16) mg/dL Creatinine (0.5-1.4) mg/dL Estim Creat Clear Calc Estimated GFR Random Glucose (60-115) mg/dL Lactic Acid 2.1 H* (0.5-2.0) mmol/L Calcium (8.4-10.2) mg/dL Troponin I High Sens 5.3 (<3.5-17.0) ng/L B-Natriuretic Peptide 18 (<100) pg/mL Urine Color YELLOW Urine Appearance CLEAR Urine pH 5.5 (5.0-8.0) Ur Specific [place] 1.020 (1.005-1.025) Urine Protein NEG (NEG-TRACE) MG/DL Urine Glucose (UA) NEG (NEG) MG/DL Urine Ketones NEG (NEG) MG/DL Urine Blood TRACE (NEG) Urine Nitrite NEG (NEG) Ur Leukocyte Esterase NEG (NEG) Urine RBC 0-2 (0) /HPF Urine WBC 0 (0-4) /HPF Ur Squamous Epith Cells 1+ /LPF Urine Bacteria 1+ /LPF Discharge Plan Discharge Clinical Impression: Asthma Patient Disposition: Admitted As Inpatient Prescriptions: No Action hydrochlorothiazide 25 mg Tablet 25 mg PO DAILY RF: 0 ipratropium-albuterol 0.5 mg-3 mg(2.5 mg base)/3 mL solution for nebulization 3 ml inhalation Q4-6H PRN (Reason: Shortness Of Breath Or Wheezing) RF: 0 albuterol sulfate 2.5 mg /3 mL (0.083 %) solution for nebulization 3 ml inhalation Q4-6H PRN (Reason: Shortness Of Breath Or Wheezing) RF: 0 dextroamphetamine-amphetamine 20 mg tablet 1 tab PO BID RF: 0 albuterol sulfate 90 mcg/actuation HFA aerosol inhaler 1 puff PO Q4H PRN (Reason: wheezing) RF: 0
[2020-07-26] MEDS: Potassium Chloride ER 20 MEQ TAB.ER.PRT 40 MEQ PO (22:48)
[2020-07-26] MEDS: levoFLOXacin/D5W 500 MG/100 ML PIGGYBACK 100 MG IV (22:49)
[2020-07-26 23:08] LABS: SARS COV2 PCR INHOUSE NEGATIVE (Negative)
[2020-07-26 23:16] LABS: Reflex Lactate? Lactic Acid Added
[2020-07-27] VITALS (9 sets, daily range): BP systolic 112–136; BP diastolic 64–88; PULSE 95–110; RESP 16–22; TEMP 36.6–37; O2SAT 3–96
--- NOTE | 2020-07-27 00:30 | PC.NURSE ---
PATIENT WAS GIVEN ICE CHIPS .
[2020-07-27 01:41] LABS: ~Lactic Acid-LAB USE ONLY 2.8 mmol/L (0.5-2.0)
[2020-07-27] MEDS: 0.9 % Sodium Chloride 1,000 ML 999 ML IVCONT (01:49)
[2020-07-27] MEDS: LORazepam 1 MG TABLET 2 MG PO (02:10)
[2020-07-27] MEDS: Albuterol Sulfate (0.083%) 2.5 MG/3 ML VIAL.NEB 5 MG INHALE (02:16)
[2020-07-27 03:12] LABS: Reflex Lactate? 2 Y
[2020-07-27 03:54] LABS: ~Lactic Acid-LAB USE ONLY 1.5 mmol/L (0.5-2.0)
[2020-07-27] MEDS: Albuterol Sulfate (0.083%) 2.5 MG/3 ML VIAL.NEB INHALE (04:36)
--- NOTE | 2020-07-27 05:25 | PM.IMHP ---
History of Present Illness Date of Service: 07/26/20 Chief Complaint: shortness of breath this is a 49-year-old female with past medical history of asthma/ COPD among others who presents to the hospital with complaints of shortness of breath. Patient reports that her symptoms started 1 week ago, associated with a cough, some sputum production that is yellow in color with no fever or chills, no chest pain, no abdominal pain nausea or vomiting, no diarrhea constipation. She reports that her daughter had pneumonia 1 week ago. Patient reports no recent travel. she has chronically had some cough and sputum production but has worsened over the past 1 week. She otherwise denies any urinary symptoms, no lower extremity edema, no orthopnea or PND. No weakness, numbness or tingling. On arrival to the ED hemodynamically stable with no significant abnormal vitals. Satting 88% on room air. Currently on 2 L satting 94%. labs significant for WBC count of 13.9, potassium of 2.9, lactic acid of 2.1, otherwise unremarkable Chest x-ray negative for any pneumonia, COVID-19 negative past medical history: Asthma /COPD overlap, tracheomalacia, ADHD, history of epilepsy, no longer on medication, fibromyalgia, history of suicide attempt past surgical history: Cholecystectomy, Family history: Diabetes and hypertension Social history: Comes from home, denies tobacco use, denies alcohol or illicit drugs Review of Systems Review of Systems: Yes all other systems are reviewed and are negative [facility] Medical History ADHD Alcohol abuse Asthma-COPD overlap syndrome Cocaine abuse Epilepsy Fibromyalgia History of suicide attempt HTN (hypertension) Sleep apnea Tracheomalacia Surgical History History of cholecystectomy Previous section Social History Household Members: Family Housing: House Alcohol intake: never Smoking Status: Former smoker Tobacco Type: Cigarette Use of substances other than those prescribed or required for medical reasons: Yes Substance Use Type: Marijuana Substance Use Frequency: Monthly Advance Directives: No Advance Directives Information Provided: No service: No Meds Allergies Allergy/AdvReac Type Severity Reaction Status Date / Time hydromorphone [From DILAUDID] Allergy Severe SEIZURES Verified 06/20/20 14:26 oxycodone [OXYCODONE] Allergy Severe SEIZURES Verified 06/20/20 14:26 gabapentin [GABAPENTIN] Allergy Intermediate MUSCLE ACHE Verified 06/20/20 14:26 bupropion [From WELLBUTRIN] Allergy Unknown SEIZURES Verified 06/20/20 14:26 phenytoin [Dilantin] Allergy Unknown Unknown Verified 06/20/20 14:26 Wellbutrin Allergy Unknown Unknown Verified 06/20/20 14:26 ENVIRONMENTAL Allergy Unknown NONE Uncoded 06/04/20 17:41 From DILANTIN AdvReac Unknown BODY ACHES Uncoded 06/04/20 17:41 Home Medications Medication Instructions Recorded Confirmed Type hydrochlorothiazide 25 mg PO DAILY 06/20/20 07/26/20 History albuterol sulfate 1 puff PO Q4H PRN 07/26/20 07/26/20 History albuterol sulfate 3 ml INHALATION Q4-6H PRN 07/26/20 07/26/20 History dextroamphetamine-amphetamine 1 tab PO BID 07/26/20 07/26/20 History ipratropium-albuterol 3 ml INHALATION Q4-6H PRN 07/26/20 07/26/20 History Physical Exam Vital Signs and Narrative: Vital Signs: Last Vital Signs Temp 97.8 F 07/27/20 04:00 Pulse 95 07/27/20 04:00 Resp 22 H 07/27/20 04:00 BP 124/77 07/27/20 04:00 Pulse Ox 96 07/27/20 04:00 Body Mass Index 31.9 Const: General: cooperative and no acute distress Orientation/consciousness: patient oriented x3 Eyes: General: appearance normal, both eyes and all related structures Pupils: Equal, round and reactive pupils present Resp: Effort & Inspection: normal respiratory effort, able to speak in complete sentences and audible wheezes Auscultation: wheezes Cardio: Rate: regular rate Rhythm: regular rhythm GI: Palpation (GI): Soft to palpation Auscultation: normal bowel sounds Skin: General skin exam: no rashes or lesions noted Neuro: General: patient oriented x3 Cranial nerves: Yes Equal, round and reactive pupils present Cognition (Neuro): normal cognition Extrem: General: Yes normal to inspection and Yes no pedal edema Results Labs CBC and Chem 7: 07/26/20 20:58 07/26/20 20:58 Labs: Laboratory Results - last 24 hr 07/26/20 07/26/20 07/26/20 20:58 20:58 20:58 MCV 99.5 H MCH 34.3 H MCHC 34.5 RDW 13.3 Plt Count 280 MPV 9.9 Immature Gran % (Auto) 0.4 Neut % (Auto) 72.2 Lymph % (Auto) 15.4 L [place] % (Auto) 8.9 Eos % (Auto) 2.5 Baso % (Auto) 0.6 Lymph # (Auto) 2.1 [place] # (Auto) 1.2 Eos # (Auto) 0.3 Baso # (Auto) 0.1 Abs Immat Gran (auto) 0.05 H Absolute Neuts (auto) 10.0 H Absolute Nucleated RBC 0.000 Nucleated RBC % (auto) 0.0 Hold Blue Top SEE NOTE Anion Gap 15 Estim Creat Clear Calc 95.1 Estimated GFR > 60 Random Glucose 128 H Lactic Acid Lactic Acid Fup @ 2Hr Lactic Acid Fup @ 4Hr Calcium 8.5 Troponin I High Sens B-Natriuretic Peptide Urine Color Urine Appearance Urine pH Ur Specific [place] Urine Protein Urine Glucose (UA) Urine Ketones Urine Blood Urine Nitrite Ur Leukocyte Esterase Urine RBC Urine WBC Ur Squamous Epith Cells Urine Bacteria Coronavirus (PCR) 07/26/20 07/26/20 07/26/20 20:58 21:07 21:07 MCV MCH MCHC RDW Plt Count MPV Immature Gran % (Auto) Neut % (Auto) Lymph % (Auto) [place] % (Auto) Eos % (Auto) Baso % (Auto) Lymph # (Auto) [place] # (Auto) Eos # (Auto) Baso # (Auto) Abs Immat Gran (auto) Absolute Neuts (auto) Absolute Nucleated RBC Nucleated RBC % (auto) Hold Blue Top Anion Gap Estim Creat Clear Calc Estimated GFR Random Glucose Lactic Acid 2.1 H* Lactic Acid Fup @ 2Hr Lactic Acid Fup @ 4Hr Calcium Troponin I High Sens 5.3 B-Natriuretic Peptide 18 Urine Color YELLOW Urine Appearance CLEAR Urine pH 5.5 Ur Specific [place] 1.020 Urine Protein NEG Urine Glucose (UA) NEG Urine Ketones NEG Urine Blood TRACE Urine Nitrite NEG Ur Leukocyte Esterase NEG Urine RBC 0-2 Urine WBC 0 Ur Squamous Epith Cells 1+ Urine Bacteria 1+ Coronavirus (PCR) 1107/27/20 07/27/20 21:54 01:05 03:22 MCV MCH MCHC RDW Plt Count MPV Immature Gran % (Auto) Neut % (Auto) Lymph % (Auto) [place] % (Auto) Eos % (Auto) Baso % (Auto) Lymph # (Auto) [place] # (Auto) Eos # (Auto) Baso # (Auto) Abs Immat Gran (auto) Absolute Neuts (auto) Absolute Nucleated RBC Nucleated RBC % (auto) Hold Blue Top Anion Gap Estim Creat Clear Calc Estimated GFR Random Glucose Lactic Acid Lactic Acid Fup @ 2Hr 2.8 H* Lactic Acid Fup @ 4Hr 1.5 Calcium Troponin I High Sens B-Natriuretic Peptide Urine Color Urine Appearance Urine pH Ur Specific [place] Urine Protein Urine Glucose (UA) Urine Ketones Urine Blood Urine Nitrite Ur Leukocyte Esterase Urine RBC Urine WBC Ur Squamous Epith Cells Urine Bacteria Coronavirus (PCR) NEGATIVE Imaging Radiologist's Impressions: Impressions Chest X-Ray 07/26/20 20:57 IMPRESSION: No acute intrathoracic disease. Assessment and Plan (1) Acute on chronic respiratory failure with hypoxia: Status: Acute (2) Acute asthma exacerbation: Status: Acute (3) Hypokalemia: Status: Acute (4) Lactic acidosis: Status: Acute (5) Asthma-COPD overlap syndrome: Status: Acute (6) HTN (hypertension): Qualifiers: Hypertension type: essential hypertension Qualified Code(s): I10 - Essential (primary) hypertension Status: Acute (7) ADHD: Status: Acute this is a 49-year-old female with past medical history of asthma/COPD who presents to the hospital with complaints of shortness of breath, cough, and sputum production. # acute hypoxic respiratory failure - secondary to COPD/ asthma exacerbation - COVID19 is negative, no pneumonia - satting 88% on room air, currently 94-96% on 2 L plan: - O2 supplement as required, treating underlying asthma / COPD exacerbation with Solu-Medrol, breathing treatment - monitor respiratory status # Asthma/ COPD exacerbation - most likely secondary to exposure to recently sick contact - COVID-19 negative, no pneumonia Plan: - will obtain respiratory viral panel - Solu-Medrol 40 IV b.i.d. - DuoNeb q.i.d. as well as p.r.n. - O2 as required # lactic acidosis - most likely secondary to breathing treatments versus hypoxia - patient has no evidence of infection, no hypotension, Plan: - IV fluids - trend lactic acid # hypokalemia will replete, and follow BMP # hypertension - stable - continue home regimen # ADHD - continue Adde rall DVT prophylaxis: Lovenox
[2020-07-27] MEDS: Lactated Ringers 1,000 ML 100 ML IVCONT ×2 (06:09→10:09)
[2020-07-27] MEDS: Potassium Chloride Packet 20 MEQ PACKET 40 MEQ PO (06:09)
[2020-07-27 08:04] LABS: Adenovirus PCR Not Detected (Not Detect.); Bordetella parapertussis PCR Not Detected (Not Detect.); Bordetella pertussis PCR Not Detected (Not Detect.); Chlamydia pneumoniae PCR Not Detected (Not Detect.); Coronavirus 229E PCR Not Detected (Not Detect.); Coronavirus HKU1 PCR Not Detected (Not Detect.); Coronavirus NL63 PCR Not Detected (Not Detect.); Coronavirus OC43 PCR Not Detected (Not Detect.); Human metapneumovirus PCR Not Detected (Not Detect.); Influenza A PCR Not Detected (Not Detect.); Influenza B PCR Not Detected (Not Detect.); Mycoplasma pneumoniae PCR Not Detected (Not Detect.); Parainfluenza 1 PCR Not Detected (Not Detect.); Parainfluenza 2 PCR Not Detected (Not Detect.); Parainfluenza 3 PCR Not Detected (Not Detect.); Parainfluenza 4 PCR Not Detected (Not Detect.); RSV PCR Not Detected (Not Detect.); Rhino/Enterovirus PCR Not Detected (Not Detect.); SARS-CoV-2 PCR Not Detected (Not Detect.)
[2020-07-27] MEDS: Albuterol/Iprat 2.5/0.5MG 3 ML AMPUL.NEB INHALE ×4 (09:18→19:02)
[2020-07-27 09:53] LABS: Basophils Percent Auto 0.2 % (0-2); Hematocrit 36.9 % (37-47); Hemoglobin 12.4 g/dl (12.0-16.0); Imm Gran Abs Auto 0.04 X10*3/uL (0.00-0.03); Imm Gran Pct Auto 0.3 % (0.0-0.4); Lymphocytes Absolute Auto 0.5 X10*3/uL (1.2-4.9); Lymphocytes Percent Auto 4.5 % (20-40); MANUAL DIFF FLAG SCAN; Mean Corpuscular HGB Conc 33.6 g/dl (31.0-35.0); Mean Corpuscular Hemoglobin 33.6 pg (27.0-33.0); Mean Platelet Volume 10.5 fL (9.4-12.3); Monocytes Absolute Auto 0.2 X10*3/uL (0.1-1.2); Monocytes Percent Auto 1.7 % (2-11); Neutrophils Absolute Auto 10.7 X10*3/uL (2.0-8.3); Neutrophils Percent Auto 93.3 % (45-73); Platelet Count 290 X10*3/uL (160-400); Red Blood Count 3.69 X10*6/uL (4.20-5.50); Red Cell Distribution Width 13.4 % (11.0-16.0); SCAN SMEAR FLAG 1; White Blood Count 11.5 X10*3/uL (4.8-10.8)
[2020-07-27] MEDS: Amphetamine Mixed Salts 20 MG TABLET PO ×2 (09:58→20:51)
[2020-07-27] MEDS: hydroCHLOROthiazide 25 MG TABLET PO (09:58)
[2020-07-27] MEDS: Enoxaparin Sodium 40 MG/0.4 ML SYRINGE SUBCUT (09:59)
[2020-07-27] MEDS: 0.9 % Sodium Chloride Flush 3 ML SYRINGE IVFLUSH ×3 (10:09→20:51)
[2020-07-27 10:16] LABS: Anion Gap 16 (12-20); Blood Urea Nitrogen 6 mg/dL (9-16); Calcium 8.4 mg/dL (8.4-10.2); Carbon Dioxide 21 mmol/L (22-29); Chloride 107 mmol/L (96-108); Creatinine Clr Calc Pharmacy 93.7; Estimated Glomerular Filt Rate > 60; Glucose Random 194 mg/dL (60-115); Potassium 4.1 mmol/l (3.3-5.1); Sodium 140 mmol/L (135-145)
[2020-07-27 10:28] LABS: SLIDE REVIEW VERIFIED
[2020-07-27] MEDS: Furosemide 20 MG/2 ML VIAL 10 MG IVPUSH (11:10)
[2020-07-27] MEDS: Flu Vacc QS2020-21(6mos up)/PF 0.5 ML SYRINGE IM (11:14)
--- NOTE | 2020-07-27 11:15 | P.PNIM_ITS ---
Subjective Subjective Date of Service: 07/27/20 Interval History: the patient was seen and evaluated this morning Laying in bed, feels comfortable Denies any fever, chills or shortness of breath No reported other overnight events. Review of Systems Review of Systems: Yes all other systems are reviewed and are negative Constitutional No fever, chills or weakness No chest pain, palpitation reporting shortness of breath and cou, wheezes No abdominal pain, nausea or vomiting No urinary symptoms No any rash or wounds Physical Exam Vital Signs: Vital Signs: Last Vital Signs Temp 98.5 F 07/27/20 08:00 Pulse 105 H 07/27/20 08:00 Resp 22 H 07/27/20 08:00 BP 133/85 07/27/20 08:00 Pulse Ox 95 07/27/20 08:00 Body Mass Index 31.9 Constitutional : Alert, oriented, not in distress Neck : Normal inspection, Supple Cardiovascular : RRR, S1 S2, no lower extremity edema Respiratory : decrease bilateral air entry, no crackles, bilateral wheezes and rhonchi Gastrointestinal: soft, lax, Normal bowel sounds, Non tender Skin : Warm/Dry, No rash Neurological : Alert & oriented x3, No focal deficit Objective Data Current Medications Generic Name Dose Route Start Last Admin Trade Name Freq PRN Reason Stop Dose Admin Acetaminophen 650 mg 07/27/20 08:54 Acetaminophen 325 Mg Tablet PO Q6H PRN Pain, Mild (Pain Scale 1-3) Albuterol/Ipratropium 3 ml 07/27/20 08:54 Albuterol/Iprat 2.5/0.5mg 3 Ml Ampul.Neb INHALE RQ4H PRN Shortness of Breath/Wheezing Albuterol/Ipratropium 3 ml 07/27/20 08:54 07/27/20 11:02 Albuterol/Iprat 2.5/0.5mg 3 Ml Ampul.Neb INHALE 3 ml RQ4H WHILE AWAKE BEATRIZ Administration Amphetamine/Dextroamphetamine 20 mg 07/27/20 09:00 07/27/20 09:58 Amphetamine Mixed Salts 20 Mg Tablet PO 20 mg BID BEATRIZ Administration Docusate Sodium 100 mg 07/27/20 08:54 Docusate Sodium 100 Mg Capsule PO DAILY PRN Constipation Enoxaparin Sodium 40 mg 07/27/20 09:00 07/27/20 09:59 Enoxaparin Sodium 40 Mg/0.4 Ml Syringe SUBCUT 40 mg Q24H BEATRIZ Administration Hydrochlorothiazide 25 mg 07/27/20 09:00 07/27/20 09:58 Hydrochlorothiazide 25 Mg Tablet PO 25 mg DAILY BEATRIZ Administration Protocol Methylprednisolone Sodium Succinate 40 mg 07/27/20 10:45 Methylprednisolone Sod Succ/Pf 40 Mg/Ml Vial IV BID BEATRIZ Ondansetron HCl 4 mg 07/27/20 08:54 Ondansetron Hcl 4 Mg/2 Ml Vial IVPUSH Q8H PRN Nausea and Vomiting Sodium Chloride 3 ml 07/27/20 08:54 07/27/20 10:09 0.9 % Sodium Chloride Flush 3 Ml Syringe IVFLUSH 3 ml QSHIFT BEATRIZ Administration Labs CBC & Chem 7: 07/27/20 09:04 07/27/20 09:04 Assessment and Plan (1) Acute on chronic respiratory failure with hypoxia: Status: Acute (2) Acute asthma exacerbation: Status: Acute (3) Hypokalemia: Status: Acute (4) Lactic acidosis: Status: Acute (5) Asthma-COPD overlap syndrome: Status: Acute (6) HTN (hypertension): Status: Acute (7) ADHD: Status: Acute Assessment and Plan: this is a 49-year-old female with past medical history of asthma/COPD who p resents to the hospital with complaints of shortness of breath, cough, and sputum production. Acute hypoxic respiratory failure Secondary to COPD/ asthma exacerbation COVID19 is negative, no pneumonia 88% on room air at presentation, currently 94-96% on 2 L O2 supplement as required Solu-Medrol 40 IV b.i.d. DuoNeb q.i.d. as well as p.r.n. Hx Alcohol abuse Not withdrawing Monitor CIWA lactic acidosis resolved hypokalemia replete and follow BMP hypertension stable continue home regimen ADHD continue Adderall DVT prophylaxis: Lovenox
[2020-07-27] MEDS: Benzonatate 100 MG CAPSULE 200 MG PO ×2 (15:35→20:51)
[2020-07-27] MEDS: LORazepam 0.5 MG TABLET PO (15:35)
--- NOTE | 2020-07-27 16:19 | PC.NURSE ---
PATIENT REFUSES HIGH FALL RISK PRECAUTIONS. PATIENT EDUCATED ON HIGH FALL RISK PRECAUTIONS DUE TO CIWA. PATIENT DID ACCEPT RED NON SKID SOCKS. NOTIFIED DOCTOR MARC. NO NEW ORDERS AT THIS TIME.
[2020-07-28] VITALS (7 sets, daily range): BP systolic 122–171; BP diastolic 70–90; PULSE 90–118; RESP 18; TEMP 36.6–36.9; O2SAT 92–98; BMI 31.9
[2020-07-28] MEDS: LORazepam 0.5 MG TABLET PO ×3 (01:14→20:47)
[2020-07-28] MEDS: Albuterol/Iprat 2.5/0.5MG 3 ML AMPUL.NEB INHALE ×6 (01:27→19:42)
[2020-07-28] MEDS: Enoxaparin Sodium 40 MG/0.4 ML SYRINGE SUBCUT (08:02)
[2020-07-28] MEDS: Benzonatate 100 MG CAPSULE 200 MG PO ×3 (08:03→20:47)
[2020-07-28] MEDS: Amphetamine Mixed Salts 20 MG TABLET PO (08:03)
[2020-07-28] MEDS: hydroCHLOROthiazide 25 MG TABLET PO (08:03)
[2020-07-28] MEDS: 0.9 % Sodium Chloride Flush 3 ML SYRINGE IVFLUSH ×3 (08:04→23:03)
--- NOTE | 2020-07-28 11:22 | MHC.CM.PN ---
dc plan home no servcies pt lives her who willk transport pt home
[2020-07-28] MEDS: guaiFENesin DM 600/30 1 TAB TAB.ER.12H 2 TAB PO ×2 (12:39→20:47)
--- NOTE | 2020-07-28 15:16 | HO.PM.IMPN ---
Subjective Subjective Date of Service: 07/28/20 Interval History: the patient was seen and evaluated this morning Laying in bed, on 2 L of oxygen as sats dropped to 88 overnight on room air Still having wheezes in feeling of dyspnea with exertion Denies any fever, chills No reported other overnight events. Review of Systems Review of Systems: Yes all other systems are reviewed and are negative Constitutional No fever, chills or weakness No chest pain, palpitation moderate shortness of breath with dry coughing and reported wheezes and dyspnea on exertion No abdominal pain, nausea or vomiting No urinary symptoms No any rash or wounds Physical Exam Vital Signs: Vital Signs: Last Vital Signs Temp 98.5 F 07/28/20 11:46 Pulse 118 H 07/28/20 11:46 Resp 18 07/28/20 11:46 BP 171/82 H 07/28/20 11:46 Pulse Ox 94 07/28/20 11:46 Body Mass Index 31.9 Constitutional : Alert, oriented, not in distress Neck : Normal inspection, Supple Cardiovascular : RRR, S1 S2, no lower extremity edema Respiratory : decrease bilateral air entry, no crackles, bilateral wheezes and rhonchi Gastrointestinal: soft, lax, Normal bowel sounds, Non tender Skin : Warm/Dry, No rash Neurological : Alert & oriented x3, No focal deficit Objective Data Current Medications Generic Name Dose Route Start Last Admin Trade Name Felizq PRN Reason Stop Dose Admin Acetaminophen 650 mg 07/27/20 08:54 Acetaminophen 325 Mg Tablet PO Q6H PRN Pain, Mild (Pain Scale 1-3) Albuterol/Ipratropium 3 ml 07/27/20 08:54 07/28/20 11:20 Albuterol/Iprat 2.5/0.5mg 3 Ml Ampul.Neb INHALE 3 ml RQ4H PRN Administration Shortness of Breath/Wheezing Albuterol/Ipratropium 3 ml 07/27/20 08:54 07/28/20 11:23 Albuterol/Iprat 2.5/0.5mg 3 Ml Ampul.Neb INHALE 3 ml RQ4H WHILE AWAKE BEATRIZ Administration Amphetamine/Dextroamphetamine 20 mg 07/27/20 09:00 07/28/20 08:03 Amphetamine Mixed Salts 20 Mg Tablet PO 20 mg BID BEATRIZ Administration Benzonatate 200 mg 07/27/20 21:00 07/28/20 08:03 Benzonatate 100 Mg Capsule PO 200 mg TID BEATRIZ Administration Docusate Sodium 100 mg 07/27/20 08:54 Docusate Sodium 100 Mg Capsule PO DAILY PRN Constipation Enoxaparin Sodium 40 mg 07/27/20 09:00 07/28/20 08:02 Enoxaparin Sodium 40 Mg/0.4 Ml Syringe SUBCUT 40 mg Q24H BEATRIZ Administration Guaifenesin/Dextromethorphan 2 tab 07/28/20 09:40 07/28/20 12:39 Guaifenesin Dm 600/30 1 Tab Tab.Er.12h PO 2 tab BID BEATRIZ Administration Hydrochlorothiazide 25 mg 07/27/20 09:00 07/28/20 08:03 Hydrochlorothiazide 25 Mg Tablet PO 25 mg DAILY BEATRIZ Administration Protocol Lorazepam 0.5 mg 07/27/20 15:14 07/28/20 12:40 Lorazepam 0.5 Mg Tablet PO 0.5 mg Q8H PRN Administration anxiety/restlessness Methylprednisolone Sodium Succinate 40 mg 07/27/20 10:45 07/28/20 08:03 Methylprednisolone Sod Succ/Pf 40 Mg/Ml Vial IV 40 mg BID BEATRIZ Administration Ondansetron HCl 4 mg 07/27/20 08:54 Ondansetron Hcl 4 Mg/2 Ml Vial IVPUSH Q8H PRN Nausea and Vomiting Sodium Chloride 3 ml 07/27/20 08:54 07/28/20 08:04 0.9 % Sodium Chloride Flush 3 Ml Syringe IVFLUSH 3 ml QSHIFT BEATRIZ Administration Labs CBC & Chem 7: 07/27/20 09:04 07/27/20 09:04 Microbiology Microbiology Results: Microbiology 07/26/20 21:10 Blood - Venous Blood Culture - Preliminary No growth after 24 hours. 07/26/20 21:09 Blood - Venous Blood Culture - Preliminary No growth after 24 hours. Assessment and Plan (1) Acute on chronic respiratory failure with hypoxia: Status: Acute (2) Acute asthma exacerbation: Status: Acute (3) Hypokalemia: Status: Acute (4) Lactic acidosis: Status: Acute (5) Asthma-COPD overlap syndrome: Status: Acute (6) HTN (hypertension): Status: Acute (7) ADHD: Status: Acute Assessment and Plan: this is a 49-year-old female with past medical history of asthma/COPD who presents to the hospital with complaints of shortness of breath, cough, and sputum production. Acute hypoxic respiratory failure Secondary to COPD/ asthma exacerbation COVID19 is negative, no pneumonia 88% on room air during the night, currently 94-96% on 2 L O2 supplement as required Solu-Medrol 40 IV b.i.d. DuoNeb q.i.d. as well as p.r.n. at Cough medication Anxiety Attacks Seems to be associated with worsening shortness of breath At p.r.n. lorazepam Hx Alcohol abuse Not withdrawing Monitor CIWA lactic acidosis resolved hypokalemia replete and follow BMP hypertension stable continue home regimen ADHD continue Adderall DVT prophylaxis: Lovenox
[2020-07-29 03:39] VITALS: BP 145/87; PULSE 78; RESP 18; TEMP 36.8; O2SAT 94
[2020-07-29 07:13] VITALS: BP 141/85; PULSE 92; RESP 20; TEMP 36.9; O2SAT 95
[2020-07-29] MEDS: Albuterol/Iprat 2.5/0.5MG 3 ML AMPUL.NEB INHALE ×2 (07:16→11:13)
[2020-07-29] MEDS: Amphetamine Mixed Salts 20 MG TABLET PO (10:18)
[2020-07-29] MEDS: hydroCHLOROthiazide 25 MG TABLET PO (10:18)
[2020-07-29] MEDS: guaiFENesin DM 600/30 1 TAB TAB.ER.12H 2 TAB PO (10:18)
[2020-07-29] MEDS: Benzonatate 100 MG CAPSULE 200 MG PO (10:19)
[2020-07-29] MEDS: 0.9 % Sodium Chloride Flush 3 ML SYRINGE IVFLUSH (10:21)
--- NOTE | 2020-07-29 10:53 | P.DS_ITS ---
DS: Providers Provider Date of admission: 07/26/20 23:50 Primary care physician: Isabel Naqvi NP DS: Diagnosis Discharge Diagnosis (1) Acute on chronic respiratory failure with hypoxia: Status: Acute (2) Acute asthma exacerbation: Status: Acute (3) Hypokalemia: Status: Acute (4) Lactic acidosis: Status: Acute (5) Asthma-COPD overlap syndrome: Status: Acute (6) HTN (hypertension): Status: Acute (7) ADHD: Status: Acute DS: Medications Discharge Medications Home Medications: Home Medications Medication Instructions Recorded Confirmed hydrochlorothiazide 25 mg PO DAILY 06/20/20 07/26/20 albuterol sulfate 1 puff PO Q4H PRN 07/26/20 07/26/20 albuterol sulfate 3 ml INHALATION Q4-6H PRN 07/26/20 07/26/20 dextroamphetamine-amphetamine 1 tab PO BID 07/26/20 07/26/20 ipratropium-albuterol 3 ml INHALATION Q4-6H PRN 07/26/20 07/26/20 Previous Rx's Medication Instructions Recorded dextromethorphan-guaifenesin 2 tab PO BID #12 tab 07/29/20 [Mucinex DM] fluticasone propion-salmeterol 1 inh INHALATION BID #1 ea 07/29/20 [AirDuo RespiClick] prednisone 40 mg PO DAILY #6 tab 07/29/20 DS: Summary Hospital Course Hospital Course: Admission note HPI this is a 49-year-old female with past medical history of asthma/ COPD among others who presents to the hospital with complaints of shortness of breath. Patient reports that her symptoms started 1 week ago, associated with a cough, some sputum production that is yellow in color with no fever or chills, no chest pain, no abdominal pain nausea or vomiting, no diarrhea constipation. She reports that her daughter had pneumonia 1 week ago. Patient reports no recent travel. she has chronically had some cough and sputum production but has worsened over the past 1 week. She otherwise denies any urinary symptoms, no lower extremity edema, no orthopnea or PND. No weakness, numbness or tingling. On arrival to the ED hemodynamically stable with no significant abnormal vitals. Satting 88% on room air. Currently on 2 L satting 94%. labs significant for WBC count of 13.9, potassium of 2.9, lactic acid of 2.1, otherwise unremarkable Chest x-ray negative for any pneumonia, COVID-19 negative Hospital course The patient was admitted to the hospital treated with bronchodilator nebulizers, IV steroids, oxygen supplement and cough medication with good response over 2 days cough course of treatment. She was weaned off the oxygen and became able to ambulate with no reported dyspnea or shortness of breath. Wheezes cleared out. She was discussed with the need to avoid any causes of exacerbation and to early his to her medical management. To be discharged home on prednisone and cough medication. To start long-acting steroid inhaler Time Spent with Patient Time attestation: Total time spent providing and/or coordinating discharge services: Physical Exam Vital Signs: Vital Signs: Last Vital Signs Temp 98.5 F 07/29/20 07:13 Pulse 92 07/29/20 07:13 Resp 20 07/29/20 07:13 BP 141/85 H 07/29/20 07:13 Pulse Ox 95 07/29/20 07:13 Body Mass Index 31.9 Constitutional : Alert, oriented, not in distress Neck : Normal inspection, Supple Cardiovascular : RRR, S1 S2, no lower extremity edema Respiratory : Good bilateral air entry, no crackles, no wheezes and rhonchi Gastrointestinal: soft, lax, Normal bowel sounds, Non tender Skin : Warm/Dry, No rash Neurological : Alert & oriented x3, No focal deficit DS: Data Data Completed and Pending Labs on day of discharge: 07/26/20 20:45 ECG 12 lead EKG Stat Continuous Cardiac Monitoring NOW EKG Documentation DIRECTED 07/26/20 20:51 Albuterol Sulfate (0.083%) [Ventolin (0.083%)] 10 mg INHALE ONCE ONE Magnesium Sulfate/H2O 2 gm in 50 ml IV ONCE methylPREDNISolone Sod Succ/PF [SOLU-MedroL] 125 mg IVPUSH ONCE ONE 07/26/20 20:57 XR chest 1V Stat 07/26/20 20:58 B Type Natriuretic Peptide Stat Basic Metabolic Panel Stat Complete Blood Count Auto Diff Stat Hold Lt Blue - Possible Coag Stat Troponin-I High Sensitivity Stat 07/26/20 21:07 Lactic Acid Stat 07/26/20 21:54 SARS COV2 PCR INHOUSE Stat 07/26/20 22:38 Potassium Chloride ER [Klor-con] 40 meq PO ONCE ONE 07/26/20 22:45 levoFLOXacin/D5W [Levaquin] 500 mg in 100 ml IV Q24H 07/26/20 23:16 ~Lactic Acid-LAB USE ONLY Stat 07/26/20 23:46 Transfer Order Routine 07/27/20 01:46 0.9 % Sodium Chloride [Ns] 1,000 ml IVCONT 999 mls/hr 07/27/20 01:51 Albuterol Sulfate (0.083%) [Ventolin (0.083%)] 5 mg INHALE ONCE ONE LORazepam [Ativan] 2 mg PO ONCE ONE 07/27/20 03:22 ~Lactic Acid-LAB USE ONLY Stat 07/27/20 04:29 Albuterol Sulfate (0.083%) [Ventolin (0.083%)] 2.5 mg INHALE ONCE ONE 07/27/20 05:33 Potassium Chloride Packet [Klor-Con Packet] 40 meq PO ONCE ONE 07/27/20 05:45 Lactated Ringers [Lr] 1,000 ml IVCONT 100 mls/hr 07/27/20 07:57 Respiratory Panel Stat 07/27/20 09:00 methylPREDNISolone Sod Succ/PF [SOLU-MedroL] 40 mg IM BID 07/27/20 09:04 Basic Metabolic Panel Routine Complete Blood Count Auto Diff Routine SLIDE REVIEW Routine 07/27/20 10:14 Furosemide [Lasix] 10 mg IVPUSH ONCE ONE 07/27/20 10:22 Flu Vacc [id number](6mos up)/PF [Fluarix Quad [id number]] 0.5 ml IM .ONCE ONE 07/27/20 21:00 methylPREDNISolone Sod Succ/PF [SOLU-MedroL] 40 mg IV BID Laboratory Last Values WBC 11.5 X10*3/uL (4.8-10.8) H 07/27/20 09:04 RBC 3.69 X10*6/uL (4.20-5.50) L 07/27/20 09:04 Hgb 12.4 g/dl (12.0-16.0) 07/27/20 09:04 Hct 36.9 % (37-47) L 07/27/20 09:04 MCV 100.0 fL (80-98) H 07/27/20 09:04 MCH 33.6 pg (27.0-33.0) H 07/27/20 09:04 MCHC 33.6 g/dl (31.0-35.0) 07/27/20 09:04 RDW 13.4 % (11.0-16.0) 07/27/20 09:04 Plt Count 290 X10*3/uL (160-400) 07/27/20 09:04 MPV 10.5 fL (9.4-12.3) 07/27/20 09:04 Immature Gran % (Auto) 0.3 % (0.0-0.4) 07/27/20 09:04 Neut % (Auto) 93.3 % (45-73) H 07/27/20 09:04 Lymph % (Auto) 4.5 % (20-40) L 07/27/20 09:04 [place] % (Auto) 1.7 % (2-11) L 07/27/20 09:04 Eos % (Auto) 0.0 % (0-4) 07/27/20 09:04 Baso % (Auto) 0.2 % (0-2) 07/27/20 09:04 Lymph # (Auto) 0.5 X10*3/uL (1.2-4.9) L 07/27/20 09:04 [place] # (Auto) 0.2 X10*3/uL (0.1-1.2) 07/27/20 09:04 Eos # (Auto) 0.0 X10*3/uL (0.0-0.4) 07/27/20 09:04 Baso # (Auto) 0.0 X10*3/uL (0.0-0.2) 07/27/20 09:04 Abs Immat Gran (auto) 0.04 X10*3/uL (0.00-0.03) H 07/27/20 09:04 Absolute Neuts (auto) 10.7 X10*3/uL (2.0-8.3) H 07/27/20 09:04 Absolute Nucleated RBC 0.000 X10*3/uL (0.0-0.012) 07/27/20 09:04 Nucleated RBC % (auto) 0.0 /100WBC (0.0-0.2) 07/27/20 09:04 Smear Tech's Comments VERIFIED 07/27/20 09:04 Hold Blue Top SEE NOTE 07/26/20 20:58 Sodium 140 mmol/L (135-145) 07/27/20 09:04 Potassium 4.1 mmol/l (3.3-5.1) D 07/27/20 09:04 Chloride 107 mmol/L (96-108) 07/27/20 09:04 Carbon Dioxide 21 mmol/L (22-29) L 07/27/20 09:04 Anion Gap 16 (12-20) 07/27/20 09:04 BUN 6 mg/dL (9-16) L 07/27/20 09:04 Creatinine 0.68 mg/dL (0.5-1.4) 07/27/20 09:04 Estim Creat Clear Calc 93.7 07/27/20 09:04 Estimated GFR > 60 07/27/20 09:04 Random Glucose 194 mg/dL (60-115) H D 07/27/20 09:04 Lactic Acid 2.1 mmol/L (0.5-2.0) H* 07/26/20 21:07 Lactic Acid Fup @ 2Hr 2.8 mmol/L (0.5-2.0) H* 07/27/20 01:05 Lactic Acid Fup @ 4Hr 1.5 mmol/L (0.5-2.0) 07/27/20 03:22 Calcium 8.4 mg/dL (8.4-10.2) 07/27/20 09:04 Troponin I High Sens 5.3 ng/L (<3.5-17.0) 07/26/20 20:58 B-Natriuretic Peptide 18 pg/mL (<100) 07/26/20 20:58 Urine Color YELLOW 07/26/20 21:07 Urine Appearance CLEAR 07/26/20 21:07 Urine pH 5.5 (5.0-8.0) 07/26/20 21:07 Ur Specific [place] 1.020 (1.005-1.025) 07/26/20 21:07 Urine Protein NEG MG/DL (NEG-TRACE) 07/26/20 21:07 Urine Glucose (UA) NEG MG/DL (NEG) 07/26/20 21:07 Urine Ketones NEG MG/DL (NEG) 07/26/20 21:07 Urine Blood TRACE (NEG) 07/26/20 21:07 Urine Nitrite NEG (NEG) 07/26/20 21:07 Ur Leukocyte Esterase NEG (NEG) 07/26/20 21:07 Urine RBC 0-2 /HPF (0) 07/26/20 21:07 Urine WBC 0 /HPF (0-4) 07/26/20 21:07 Ur Squamous Epith Cells 1+ /LPF 07/26/20 21:07 Urine Bacteria 1+ /LPF 07/26/20 21:07 Respiratory Panel Dominguez See Note 07/27/20 07:57 Adenovirus (Rapid PCR) Not Detected (Not Detect.) 07/27/20 07:57 B.pert (TEM-PCR) Not Detected (Not Detect.) 07/27/20 07:57 B.parapertussis DNA PCR Not Detected (Not Detect.) 07/27/20 07:57 C. pneumoniae DNA (PCR) Not Detected (Not Detect.) 07/27/20 07:57 Coronavirus (PCR) NEGATIVE (Negative) 07/26/20 21:54 Coronavirus OC43 (PCR) Not Detected (Not Detect.) 07/27/20 07:57 Coronavirus HKU1 (PCR) Not Detected (Not Detect.) 07/27/20 07:57 Coronavirus 229E (PCR) Not Detected (Not Detect.) 07/27/20 07:57 Coronavirus NL63 (PCR) Not Detected (Not Detect.) 07/27/20 07:57 Human Metapneumovir PCR Not Detected (Not Detect.) 07/27/20 07:57 Influenza A (RT-PCR) Not Detected (Not Detect.) 07/27/20 07:57 Influenza B (RT-PCR) Not Detected (Not Detect.) 07/27/20 07:57 M. pneumoniae (PCR) Not Detected (Not Detect.) 07/27/20 07:57 Parainfluenza 1 (PCR) Not Detected (Not Detect.) 07/27/20 07:57 Parainfluenza 2 (PCR) Not Detected (Not Detect.) 07/27/20 07:57 Parainfluenza 3 (PCR) Not Detected (Not Detect.) 07/27/20 07:57 Parainfluenza 4 (PCR) Not Detected (Not Detect.) 07/27/20 07:57 RSV (PCR) Not Detected (Not Detect.) 07/27/20 07:57 Entero/Rhino (PCR) Not Detected (Not Detect.) 07/27/20 07:57 SARS-CoV-2 RNA (RT-PCR) Not Detected (Not Detect.) 07/27/20 07:57 Preliminary micro results at discharge 07/26/20 21:10 Blood Culture - Preliminary Blood - Venous No growth after 48 hours. 07/26/20 21:09 Blood Culture - Preliminary Blood - Venous No growth after 48 hours. Discharge Plan Discharge Patient Disposition: Home, Self-Care Referrals: Isabel Naqvi, HEALTH INSURANCE AGENT [Primary Care Provider] - Discharge Medications: New Mucinex DM 30-600 mg Tablet Extended Release 12 Hr 2 tab PO BID Qty: 12 RF: 0 fluticasone propion-salmeterol [AirDuo RespiClick] 113-14 mcg/actuation aerosol powdr breath activated 1 inh inhalation BID Qty: 1 RF: 1 prednisone 20 mg tablet 40 mg PO DAILY Qty: 6 RF: 0 Continued hydrochlorothiazide 25 mg Tablet 25 mg PO DAILY RF: 0 ipratropium-albuterol 0.5 mg-3 mg(2.5 mg base)/3 mL solution for nebulization 3 ml inhalation Q4-6H PRN (Reason: Shortness Of Breath Or Wheezing) RF: 0 albuterol sulfate 2.5 mg /3 mL (0.083 %) solution for nebulization 3 ml inhalation Q4-6H PRN (Reason: Shortness Of Breath Or Wheezing) RF: 0 dextroamphetamine-amphetamine 20 mg tablet 1 tab PO BID RF: 0 albuterol sulfate 90 mcg/actuation HFA aerosol inhaler 1 puff PO Q4H PRN (Reason: wheezing) RF: 0 Discharge Orders: Discharge Order (Routine); Ordered 07/29/20 Ordered By: Parmjit Ayala Diet: advance to your usual diet Activity on Discharge: As tolerated Visit Report Forms: Patient Portal Discharge page Care Plan Goals: Read below Health Concerns: Read below Plan of Treatment: You were admitted to the hospital for treatment of asthma/COPD exacerbation requiring oxygen supplement. You received treatment of steroids, bronchodilators and oxygen with good response over the course of treatment. You were weaned off the oxygen and became able to ambulate with no reported difficulty breathing. Continue prednisone as prescribed To start airduo inhalers twice Daily Continue using her home inhaler and nebulizers
--- NOTE | 2020-07-29 11:13 | MHC.CM.PN ---
pt dcd today home no services
== END 2020-07-29 12:27 | disposition home or self-care (01) | DRG 202 ==
LOC: HO.ED 22:44 → HO.IMC 07-27 06:19
PROVIDERS: Admitting Provider Internal Medicine; Emergency Provider Emergency Medicine; PCP Nurse Practitioner Family; Visit Provider Student in an Organized Health Care Education/Training Program
DX: J45.901 Unspecified asthma with (acute) exacerbation (principal); J96.21 Acute and chronic respiratory failure with hypoxia; J44.1 Chronic obstructive pulmonary disease with (acute) exacerbation; E87.2 Acidosis; G40.901 Epilepsy, unspecified, not intractable, with status epilepticus; E87.6 Hypokalemia; F10.10 Alcohol abuse, uncomplicated; F41.9 Anxiety disorder, unspecified; F90.9 Attention-deficit hyperactivity disorder, unspecified type; Z20.828 Contact with and (suspected) exposure to other viral communicable diseases; Z91.5 Personal history of self-harm; Z87.891 Personal history of nicotine dependence; Z88.5 Allergy status to narcotic agent; Z79.899 Other long term (current) drug therapy
CPT/HCPCS: 36415; 71045; 80048; 81001; 83605; 83880; 84484; 85025; 87040; 87633; 90686; 93005; 94640; 94644; 96361; 96365; 96366; 96375; 99284; 99285; J1650; J1940; J1956; J2920; J2930; J3475; U0003

== ENCOUNTER → 2020-08-11 15:54 | Outpatient (BNVA) | payer OTHER, SELFPAY | PROVIDERS: PCP Nurse Practitioner Family; Referring Provider Nurse Practitioner Family; Visit Provider Internal Medicine | DX: Z76.89 Persons encountering health services in other specified circumstances (principal) ==

== ENCOUNTER 2020-08-15 15:13 | Emergency (ER) | payer OTHER, SELFPAY | END 2020-08-15 16:09 | disposition left against medical advice (07) | PROVIDERS: Emergency Provider Emergency Medicine; PCP Nurse Practitioner Family | DX: J45.909 Unspecified asthma, uncomplicated (principal) | CPT/HCPCS: 99281 ==

== ENCOUNTER → 2020-09-01 15:16 | Outpatient (BNVA) | payer OTHER, SELFPAY | PROVIDERS: PCP Nurse Practitioner Family; Visit Provider Internal Medicine | DX: Z76.89 Persons encountering health services in other specified circumstances (principal) ==

== ENCOUNTER 2020-09-05 18:51 | Emergency (ER) | payer OTHER, SELFPAY ==
[2020-09-05 18:57] VITALS: BP 132/83; PULSE 114; RESP 16; TEMP 37.2; O2SAT 95; BMI 33.8
--- NOTE | 2020-09-05 19:27 | ECG_ITS ---
Test Reason : OVERDOSE Blood Pressure : / mmHG Vent. Rate : 107 BPM Atrial Rate : 107 BPM P-R Int : 144 ms QRS Dur : 092 ms QT Int : 360 ms P-R-T Axes : 059 044 066 degrees QTc Int : 480 ms Sinus tachycardia Otherwise normal ECG When compared with ECG of 26-JUL-2020 21:23, No significant change was found Referred By: Flip Kumar Electronically Signed By:Chino Perez
--- NOTE | 2020-09-05 19:38 | PC.NURSE ---
PT TO ROOM #9 FROM [facility] AFTER TAKING UNK AMT OF ATIVAN. PT FIRST STATED SHE TOOK A TOTAL OF 50MG OF 0.5MG TABS, THEN PT STATED I COUNTED OUT 65 PILLS OF 0.5MG TABS AND TOOK THEM . PT IS ALERT, SPEAKING IN FULL CLEAR SENTENCES, RESPIRATIONS EASY, N/L. PT DENIES ANY PAIN OR OTHER COMPLAINTS. PT STATES IM VERY RELAXED . PT CHG INTO GOWN AND BELONGINGS REMOVED BY SECURITY. PT ON MONITOR, VS OBTAINED. PT UP TO RESTROOM FOR URINE SAMPLE WITH STEADY EVEN GAIT. HL PLACED TO LAC, LABS DRAWN TO LAB FOR EVAL. EKG BEING OBTAINED AT THIS TIME. SITTER WITH PT FOR OBS FOR SAFETY. SIDE RAILS UP X 2, BED IN LOW LOCKED POSITION. POISON CONTROL CONTACTED POISON CONTROL SUGGESTIONS: LABS: TYLENOL, ASPIRIN, ETOH, BMP, CHEM 7, UA DRUG SCREEN AND PREG. EKG 12 LEAD AND ACTIVATED CHARCOAL ONLY IF AWAKE AND AMBULATE BEFORE DISCHARGE. DANA BAILON AWARE OF INSTRUCTIONS. WILL CONTINUE TO MONITOR PT.
[2020-09-05 19:40] LABS: Basophils Percent Auto 0.6 % (0-2); Eosinophils Percent Auto 0.1 % (0-4); Hematocrit 44.4 % (37-47); Hemoglobin 15.2 g/dl (12.0-16.0); Imm Gran Abs Auto 0.04 X10*3/uL (0.00-0.03); Imm Gran Pct Auto 0.6 % (0.0-0.4); Lymphocytes Absolute Auto 1.9 X10*3/uL (1.2-4.9); Lymphocytes Percent Auto 25.7 % (20-40); MANUAL DIFF FLAG NO; Mean Corpuscular HGB Conc 34.2 g/dl (31.0-35.0); Mean Corpuscular Volume 96.5 fL (80-98); Mean Platelet Volume 9.4 fL (9.4-12.3); Monocytes Absolute Auto 0.4 X10*3/uL (0.1-1.2); Neutrophils Absolute Auto 4.8 X10*3/uL (2.0-8.3); Platelet Count 413 X10*3/uL (160-400); Red Cell Distribution Width 12.9 % (11.0-16.0); White Blood Count 7.2 X10*3/uL (4.8-10.8)
[2020-09-05] MEDS: 0.9 % Sodium Chloride 1,000 ML 999 ML IV ×3 (19:46→20:27)
[2020-09-05 19:48] VITALS: BP 138/89; PULSE 109; RESP 25; O2SAT 93
[2020-09-05 19:53] LABS: INTERNATIONAL NORM RATIO 0.9 (0.9-1.1); Prothrombin Time 10.8 SEC (10.8-13.0)
[2020-09-05 19:55] LABS: Partial Thromboplastin Time 31.9 SEC (24.1-38.0)
--- NOTE | 2020-09-05 19:59 | ED_ITS ---
HPI - Overdose General Chief Complaint: Overdose Stated Complaint: med OD Time Seen by Provider: 09/05/20 19:23 Source: patient Mode of arrival: ambulatory Limitations: no limitations History of Present Illness HPI Narrative: Patient presents to ED for intentional overdose. Patient states she took about 30 pills of 0.5 Ativan 1 hour before coming to the ED. Patient also states she drank a little bit. Patient states she tried to hurt herself due to her daughter moved away with her grandkids. Patient's son states gas stove was on. Patient denies leaving the gas on to for gael monoxide posoining. Patient states she was cooking with her son and then turned off. Patient denies trying to hill herself with gas stove. Patient states it was only on for small while cooking with son. Related Data Home Medications Medication Instructions Recorded Confirmed hydrochlorothiazide 25 mg PO DAILY 06/20/20 07/26/20 albuterol sulfate 1 puff PO Q4H PRN 07/26/20 07/26/20 albuterol sulfate 3 ml INHALATION Q4-6H PRN 07/26/20 07/26/20 dextroamphetamine-amphetamine 1 tab PO BID 07/26/20 07/26/20 ipratropium-albuterol 3 ml INHALATION Q4-6H PRN 07/26/20 07/26/20 folic acid 1 mg tablet 1 mg PO DAILY 08/11/20 loratadine 10 mg tablet 10 mg PO BEDTIME 08/11/20 nystatin 100,000 unit/mL oral 5 ml PO QID 08/11/20 suspension thiamine mononitrate (vit B1) 100 100 mg PO DAILY 08/11/20 mg tablet prednisone 5 mg tablet 5 mg PO DAILY tab 09/01/20 Previous Rx's Medication Instructions Recorded dextromethorphan-guaifenesin 2 tab PO BID #12 tab 07/29/20 [Mucinex DM] fluticasone 232 mcg-salmeterol 14 1 inh INHALATION BID 30 Days #1 ea 08/11/20 mcg/actuation breath activated powdr lorazepam 0.5 mg tablet 0.5 mg PO TID PRN 30 Days #30 tab 08/11/20 montelukast 10 mg tablet 10 mg PO DAILY 30 Days #30 tab 08/11/20 lorazepam 0.5 mg tablet 0.5 mg PO TID PRN 30 Days #90 tab 12/15/20 Allergies Allergy/AdvReac Type Severity Reaction Status Date / Time hydromorphone [From DILAUDID] Allergy Severe SEIZURES Verified 09/05/20 19:04 oxycodone [OXYCODONE] Allergy Severe SEIZURES Verified 09/05/20 19:04 gabapentin [GABAPENTIN] Allergy Intermediate MUSCLE ACHE Verified 09/05/20 19:04 bupropion [From WELLBUTRIN] Allergy Unknown SEIZURES Verified 09/05/20 19:04 phenytoin [Dilantin] Allergy Unknown Unknown Verified 09/05/20 19:04 Review of Systems Review of Systems: Yes all other systems are reviewed and are negative Constitutional: Constitutional: Reports as per HPI and Reports no additional constitutional complaints Eyes: Eyes: Reports as per HPI and Reports no additional eye complaints ENT: Reports system reviewed and no additional complaints, except as documented and Reports as per HPI Cardiovascular: Cardiovascular: Reports as per HPI and Reports no additional cardiovascular complaints Respiratory: Respiratory: Reports as per HPI and Reports no additional respiratory complaints Gastrointestinal: Gastrointestinal: Reports as per HPI and Reports no additional gastrointestinal complaints Genitourinary: Genitourinary: Reports no additional female genitourinary complaints and Reports as per HPI Musculoskeletal: Musculoskeletal: Reports no additional musculoskeletal complaints and Reports as per HPI Neurologic: Reports system reviewed and no additional complaints, except as documented and Reports as per HPI Psychiatric: Psychiatric: Reports no additional psychiatric complaints and Reports as per HPI PMFSH Past Medical History Medical History Acute asthma exacerbation ADHD Alcohol abuse Anxiety Asthma Asthma-COPD overlap syndrome Cocaine abuse COPD (chronic obstructive pulmonary disease) Epilepsy Fibromyalgia History of suicide attempt HTN (hypertension) Sleep apnea Tracheomalacia Surgical History History of cholecystectomy Previous section Social History Social History Household Members: Spouse, Family and Children Housing: House Alcohol intake: never Smoking Status: Former smoker Tobacco Type: Cigarette Substance Use Type: Marijuana Advance Directives: No Advance Directives Information Provided: No service: No Physical Exam Vital Signs: Vital Signs: Last Vital Signs Temp 98.3 F 09/06/20 00:00 Pulse 92 09/06/20 00:00 Resp 23 H 09/06/20 00:00 BP 135/69 09/06/20 00:00 Pulse Ox 94 09/06/20 00:00 Body Mass Index 33.8 Const: General: cooperative, healthy appearing, comfortable, no acute distress, well developed, alert, awake and Physically active Orientation/consciousness: oriented to time and patient oriented x3 HENMT: Other: Oral cavity, nares, and skin, negative for black tar/sut to indicate smoke inhalation/exposure. Head: Yes normal to inspection and Yes No palpable skull fracture present Eyes: General: appearance normal, both eyes and all related structures Neck: Neck: Yes normal visual inspection, Yes full ROM, Yes no lymphadenopathy, Yes no meningeal signs, Yes trachea midline, Yes supple and No tender Chest: Chest palpation & inspection: normal inspection of the chest Resp: Effort & Inspection: normal respiratory effort and able to speak in complete sentences Auscultation: clear to auscultation bilaterally Cardio: Jugular venous distension: no JVD Heart sounds: S1 normal heart sound present and S2 normal heart sound present GI: Inspection: Yes normal to inspection and No abdominal wall ecchymosis Palpation (GI): Soft to palpation, not firm, nontender, no guarding and not rigid : General: No CVA tenderness and Yes no CVA tenderness Back/Spine/Pelvis: Back: no CVA tenderness, No CVA tenderness and No back tenderness Skin: General skin exam: no rashes or lesions noted Neuro: General: oriented to time, patient oriented x3, gait normal, no meningeal signs and CN's II-XI intact bilaterally Cranial nerves: Yes CN's II-XII intact bilaterally Extrem: General: Yes normal to inspection and Yes full ROM Psych: Appearance: grossly normal, well kempt and not disheveled Course Course Course Narrative: Orderlabs, fluids, EKG, and contact poison Control. Patient also be a [facility] evaluation once medically cleared. Reevaluation(s) Reevaluation #1: Nurse Hurd spoke with poison Control and they recommended labs including Tylenol, and ASA. Poison Control also recommend truncal only if patient is not sleepy. They state if patient is sleepy and drinks truncal she will be high risk for aspiration. Time: 20:05 Reevaluation #2: Patient is very sleepy. Patient is not safe to drink activated charcoal. Patient placed on monitor. Time: 20:07 Reevaluation #3: Patient labs came back normal and at baseline. Patient complex hemoglobin came back 3.3. I went to speak to patient to see if she still smoked cigarettres and patient states yes she still smokes cigarettes. caboxy hemoglobin level 3.3 makes a normal for smoker. Patient woke up and walked to the bathroom. Patient went back to sleep. Patient alert oriented x3 Time: 23:21 Additional Reevaluation(s): Patient repeat labs are normal. Spoke with poison Control and they states patient is medically cleared. Patient awaiting [facility] evaluation. Patient presently sleeping and not in any distress. O2 saturation is normal. History physical exam does not indicate carbon monoxide poisoning. Case signed out to Dr. Gee. MDM - Overdose MDM Narrative Medical decision making narrative: Medication overdose Lab Data Result diagrams: 09/05/20 19:32 09/06/20 00:45 Labs: Lab Results 09/05/20 09/05/20 09/05/20 Range/Units 19:32 19:32 19:32 WBC 7.2 (4.8-10.8) X10*3/uL RBC 4.60 D (4.20-5.50) X10*6/uL Hgb 15.2 D (12.0-16.0) g/dl Hct 44.4 D (37-47) % MCV 96.5 (80-98) fL MCH 33.0 (27.0-33.0) pg MCHC 34.2 (31.0-35.0) g/dl RDW 12.9 (11.0-16.0) % Plt Count 413 H D (160-400) X10*3/uL MPV 9.4 (9.4-12.3) fL Immature Gran % (Auto) 0.6 H (0.0-0.4) % Neut % (Auto) 67.0 (45-73) % Lymph % (Auto) 25.7 (20-40) % Glynn % (Auto) 6.0 (2-11) % Eos % (Auto) 0.1 (0-4) % Baso % (Auto) 0.6 (0-2) % Lymph # (Auto) 1.9 (1.2-4.9) X10*3/uL Glynn # (Auto) 0.4 (0.1-1.2) X10*3/uL Eos # (Auto) 0.0 (0.0-0.4) X10*3/uL Baso # (Auto) 0.0 (0.0-0.2) X10*3/uL Abs Immat Gran (auto) 0.04 H (0.00-0.03) X10*3/uL Absolute Neuts (auto) 4.8 (2.0-8.3) X10*3/uL Absolute Nucleated RBC 0.000 (0.0-0.012) X10*3/uL Nucleated RBC % (auto) 0.0 (0.0-0.2) /100WBC PT 10.8 (10.8-13.0) SEC INR 0.9 (0.9-1.1) APTT 31.9 (24.1-38.0) SEC Carboxyhemoglobin % Sodium 143 (135-145) mmol/L Potassium 4.4 (3.3-5.1) mmol/l Chloride 103 (96-108) mmol/L Carbon Dioxide 25 (22-29) mmol/L Anion Gap 19 (12-20) BUN 14 D (9-16) mg/dL Creatinine 0.75 (0.5-1.4) mg/dL Estim Creat Clear Calc 87.6 Estimated GFR > 60 Random Glucose 155 H (60-115) mg/dL Calcium 9.8 D (8.4-10.2) mg/dL Total Bilirubin 0.2 (0.0-1.0) mg/dL Direct Bilirubin 0.2 (0.0-0.5) mg/dL AST 50 H D (5-31) U/L ALT 70 H (0-31) U/L Alkaline Phosphatase 83 D (39-117) U/L Total Protein 7.9 D (6.5-8.0) g/dL Albumin 4.7 (3.5-5.0) g/dL Beta HCG, Quant 6 mIU/mL Salicylates < 5.0 L (15-30) mg/dL Urine Opiates Screen (Not Detect) Acetaminophen < 1 (<30) mcg/mL Ur Barbiturates Screen (Not Detect) Ur Phencyclidine Scrn (Not Detect) Ur Amphetamines Screen (Not Detect) U Benzodiazepines Scrn (Not Detect) Urine Cocaine Screen (Not Detect) U Marijuana (THC) Screen (Not Detect) Ethyl Alcohol mg/dL 09/05/20 09/05/20 09/05/20 Range/Units 19:32 19:43 19:44 WBC (4.8-10.8) X10*3/uL RBC (4.20-5.50) X10*6/uL Hgb (12.0-16.0) g/dl Hct (37-47) % MCV (80-98) fL MCH (27.0-33.0) pg MCHC (31.0-35.0) g/dl RDW (11.0-16.0) % Plt Count (160-400) X10*3/uL MPV (9.4-12.3) fL Immature Gran % (Auto) (0.0-0.4) % Neut % (Auto) (45-73) % Lymph % (Auto) (20-40) % Glynn % (Auto) (2-11) % Eos % (Auto) (0-4) % Baso % (Auto) (0-2) % Lymph # (Auto) (1.2-4.9) X10*3/uL Glynn # (Auto) (0.1-1.2) X10*3/uL Eos # (Auto) (0.0-0.4) X10*3/uL Baso # (Auto) (0.0-0.2) X10*3/uL Abs Immat Gran (auto) (0.00-0.03) X10*3/uL Absolute Neuts (auto) (2.0-8.3) X10*3/uL Absolute Nucleated RBC (0.0-0.012) X10*3/uL Nucleated RBC % (auto) (0.0-0.2) /100WBC PT (10.8-13.0) SEC INR (0.9-1.1) APTT (24.1-38.0) SEC Carboxyhemoglobin 3.3 % Sodium (135-145) mmol/L Potassium (3.3-5.1) mmol/l Chloride (96-108) mmol/L Carbon Dioxide (22-29) mmol/L Anion Gap (12-20) BUN (9-16) mg/dL Creatinine (0.5-1.4) mg/dL Estim Creat Clear Calc Estimated GFR Random Glucose (60-115) mg/dL Calcium (8.4-10.2) mg/dL Total Bilirubin (0.0-1.0) mg/dL Direct Bilirubin (0.0-0.5) mg/dL AST (5-31) U/L ALT (0-31) U/L Alkaline Phosphatase (39-117) U/L Total Protein (6.5-8.0) g/dL Albumin (3.5-5.0) g/dL Beta HCG, Quant mIU/mL Salicylates (15-30) mg/dL Urine Opiates Screen Not Detected (Not Detect) Acetaminophen (<30) mcg/mL Ur Barbiturates Screen Not Detected (Not Detect) Ur Phencyclidine Scrn Not Detected (Not Detect) Ur Amphetamines Screen Not Detected (Not Detect) U Benzodiazepines Scrn Not Detected (Not Detect) Urine Cocaine Screen Not Detected (Not Detect) U Marijuana (THC) Screen POSITIVE H (Not Detect) Ethyl Alcohol 126 mg/dL 09/06/20 Range/Units 00:45 WBC (4.8-10.8) X10*3/uL RBC (4.20-5.50) X10*6/uL Hgb (12.0-16.0) g/dl Hct (37-47) % MCV (80-98) fL MCH (27.0-33.0) pg MCHC (31.0-35.0) g/dl RDW (11.0-16.0) % Plt Count (160-400) X10*3/uL MPV (9.4-12.3) fL Immature Gran % (Auto) (0.0-0.4) % Neut % (Auto) (45-73) % Lymph % (Auto) (20-40) % Glynn % (Auto) (2-11) % Eos % (Auto) (0-4) % Baso % (Auto) (0-2) % Lymph # (Auto) (1.2-4.9) X10*3/uL Glynn # (Auto) (0.1-1.2) X10*3/uL Eos # (Auto) (0.0-0.4) X10*3/uL Baso # (Auto) (0.0-0.2) X10*3/uL Abs Immat Gran (auto) (0.00-0.03) X10*3/uL Absolute Neuts (auto) (2.0-8.3) X10*3/uL Absolute Nucleated RBC (0.0-0.012) X10*3/uL Nucleated RBC % (auto) (0.0-0.2) /100WBC PT (10.8-13.0) SEC INR (0.9-1.1) APTT (24.1-38.0) SEC Carboxyhemoglobin % Sodium 142 (135-145) mmol/L Potassium 3.7 (3.3-5.1) mmol/l Chloride 110 H (96-108) mmol/L Carbon Dioxide 26 (22-29) mmol/L Anion Gap 10 L (12-20) BUN 12 (9-16) mg/dL Creatinine 0.62 (0.5-1.4) mg/dL Estim Creat Clear Calc 105.9 Estimated GFR > 60 Random Glucose 118 H (60-115) mg/dL Calcium 7.8 L D (8.4-10.2) mg/dL Total Bilirubin 0.3 (0.0-1.0) mg/dL Direct Bilirubin 0.2 (0.0-0.5) mg/dL AST 35 H (5-31) U/L ALT 51 H (0-31) U/L Alkaline Phosphatase 63 D (39-117) U/L Total Protein 5.9 L D (6.5-8.0) g/dL Albumin 3.7 D (3.5-5.0) g/dL Beta HCG, Quant mIU/mL Salicylates < 5.0 L (15-30) mg/dL Urine Opiates Screen (Not Detect) Acetaminophen < 1 (<30) mcg/mL Ur Barbiturates Screen (Not Detect) Ur Phencyclidine Scrn (Not Detect) Ur Amphetamines Screen (Not Detect) U Benzodiazepines Scrn (Not Detect) Urine Cocaine Screen (Not Detect) U Marijuana (THC) Screen (Not Detect) Ethyl Alcohol mg/dL Discharge Plan Discharge Clinical Impression: Drug overdose Prescriptions: No Action hydrochlorothiazide 25 mg Tablet 25 mg PO DAILY RF: 0 ipratropium-albuterol 0.5 mg-3 mg(2.5 mg base)/3 mL solution for nebulization 3 ml inhalation Q4-6H PRN (Reason: Shortness Of Breath Or Wheezing) RF: 0 albuterol sulfate 2.5 mg /3 mL (0.083 %) solution for nebulization 3 ml inhalation Q4-6H PRN (Reason: Shortness Of Breath Or Wheezing) RF: 0 dextroamphetamine-amphetamine 20 mg tablet 1 tab PO BID RF: 0 albuterol sulfate 90 mcg/actuation HFA aerosol inhaler 1 puff PO Q4H PRN (Reason: wheezing) RF: 0 Mucinex DM 30-600 mg Tablet Extended Release 12 Hr 2 tab PO BID Qty: 12 RF: 0 thiamine mononitrate (vit B1) 100 mg tablet 100 mg PO DAILY RF: 0 folic acid 1 mg tablet 1 mg PO DAILY RF: 0 loratadine 10 mg tablet 10 mg PO BEDTIME RF: 0 nystatin 100,000 unit/mL suspension 5 ml PO QID RF: 0 lorazepam 0.5 mg tablet 0.5 mg PO TID PRN (Reason: anxiety) 30 Days Qty: 30 RF: 1 montelukast [Singulair] 10 mg tablet 10 mg PO DAILY 30 Days Qty: 30 RF: 3 fluticasone propion-salmeterol [AirDuo RespiClick] 232-14 mcg/actuation aerosol powdr breath activated 1 inh inhalation BID 30 Days Qty: 1 RF: 3 prednisone 5 mg tablet 5 mg PO DAILY RF: 0 lorazepam 0.5 mg tablet 0.5 mg PO TID PRN (Reason: anxiety) 30 Days Qty: 90 RF: 2
[2020-09-05 20:00] VITALS: BP 113/63; BP 138/90; PULSE 96; PULSE 99; RESP 21; TEMP 37.2; O2SAT 93; O2SAT 94
[2020-09-05 20:04] LABS: Ethanol 126 mg/dL
[2020-09-05 20:05] LABS: Carboxyhemoglobin 3.3 %
--- NOTE | 2020-09-05 20:12 | PC.NURSE ---
PT IS NOT GIVEN CHARCOAL AT THIS TIME D/T SEDATION. PT REMAINS ON MONITOR. RESPIRATIONS EASY, N/L. SITTER REMAINS WITH PT.
[2020-09-05 20:15] LABS: HCG Quantitative 6 mIU/mL
[2020-09-05 20:17] LABS: Acetaminophen LAB < 1 mcg/mL (<30); Alanine Aminotransferase 70 U/L (0-31); Albumin Level 4.7 g/dL (3.5-5.0); Alkaline Phosphatase 83 U/L (39-117); Anion Gap 19 (12-20); Aspartate Amino Transferase 50 U/L (5-31); Bilirubin Direct 0.2 mg/dL (0.0-0.5); Bilirubin Total 0.2 mg/dL (0.0-1.0); Blood Urea Nitrogen 14 mg/dL (9-16); Calcium 9.8 mg/dL (8.4-10.2); Carbon Dioxide 25 mmol/L (22-29); Chloride 103 mmol/L (96-108); Creatinine Clr Calc Pharmacy 87.6; Estimated Glomerular Filt Rate > 60; Glucose Random 155 mg/dL (60-115); Potassium 4.4 mmol/l (3.3-5.1); Salicylate < 5.0 mg/dL (15-30); Sodium 143 mmol/L (135-145); Total Protein 7.9 g/dL (6.5-8.0)
[2020-09-05 20:20] LABS: Amphetamine Screen Urine Not Detected (Not Detect); Barbiturates, Urine Not Detected (Not Detect); Benzodiazepines Screen Urine Not Detected (Not Detect); Cannabinoid Screen Urine POSITIVE (Not Detect); Cocaine Screen Urine Not Detected (Not Detect); Opiate Screen Urine Not Detected (Not Detect); Phencyclidine Screen Urine Not Detected (Not Detect)
--- NOTE | 2020-09-05 20:21 | PC.NURSE ---
PT RESPONDS TO VOICE AND TOUCH, STARTLED AWAKE. BLOOD PRESSURE STARTING TO COME DOWN FROM 130'S SYSTOLIC TO 113/63. 2 LITERS NS INFUSING, PT HAS 2 IV SITES. PROVIDER AWARE OF DROP IN BP. PT POSITIONED SUPINE. SITTER WATCHING PATIENT. PT ON ENDOCRINOLOGY SPECIALIST AND SPO2.
--- NOTE | 2020-09-05 20:44 | PC.NURSE ---
PT SLEEPING AT THIS TIME, WAKES TO VERBAL STIMULI, RESPIRATIONS EASY, N/L. SKIN W/D. PT ON MONITOR WITH HR 93, PO 97% ON RA. PT WITH 1:1 SITTER AT BEDSIDE. WILL CONTINUE TO MONITOR PT.
[2020-09-05 20:46] VITALS: BP 110/76; PULSE 93; RESP 20; O2SAT 96
--- NOTE | 2020-09-05 21:03 | MHC.CARE ---
CARE team checked in with ED regarding this patient in room 9 who is being treated post-overdose and will likely need crisis evaluation. Patient is not likely to be medically cleared before end of this shift, and it is uncertain at this time whether she will need to be medically admitted. Plan for CARE team consult once patient is medically cleared, whether in ED or on med floor. ED is aware that there is no overnight coverage for CARE team today.
--- NOTE | 2020-09-05 21:06 | PC.NURSE ---
CARE TEAM CALLED AND WHEN PT IS MEDICALLY CLEARED, ORDER NEEDS TO BE PUT IN FOR CARE TEAM.
--- NOTE | 2020-09-05 21:41 | PC.NURSE ---
PT WAKES TO VERBAL STIMULI, RESPIRATIONS EASY, N/L. 3RD L OF NS INFUSED W/O DIFFICULTY. 4TH L UP AND RUNNING W/O SITE, INTACT. WITH SITTER ON MONITOR. WILL CONTINUE TO MONITOR PT.
[2020-09-05 22:00] VITALS: BP 118/89; PULSE 96; RESP 23; TEMP 36.5; O2SAT 94
--- NOTE | 2020-09-05 23:58 | PC.NURSE ---
PT TO ROOM #13 WITH C/O CHEST PAIN WHICH IS REPRODUCIBLE. PT IS HAVING SOB DURING THE NIGHT X 2-3 MONTHS. PT ARRIVES ALERT, RESPIRATIONS EASY, N/L, SKIN W/D. PT CHG INTO GOWN AND EKG OBTAINED TO .
[2020-09-06] VITALS: BP 135/69; PULSE 92; RESP 23; TEMP 36.8; O2SAT 94
[2020-09-06 01:18] LABS: Acetaminophen LAB < 1 mcg/mL (<30); Alanine Aminotransferase 51 U/L (0-31); Albumin Level 3.7 g/dL (3.5-5.0); Alkaline Phosphatase 63 U/L (39-117); Anion Gap 10 (12-20); Aspartate Amino Transferase 35 U/L (5-31); Bilirubin Direct 0.2 mg/dL (0.0-0.5); Bilirubin Total 0.3 mg/dL (0.0-1.0); Blood Urea Nitrogen 12 mg/dL (9-16); Calcium 7.8 mg/dL (8.4-10.2); Carbon Dioxide 26 mmol/L (22-29); Chloride 110 mmol/L (96-108); Creatinine Clr Calc Pharmacy 105.9; Estimated Glomerular Filt Rate > 60; Glucose Random 118 mg/dL (60-115); Potassium 3.7 mmol/l (3.3-5.1); Salicylate < 5.0 mg/dL (15-30); Sodium 142 mmol/L (135-145); Total Protein 5.9 g/dL (6.5-8.0)
--- NOTE | 2020-09-06 01:33 | PC.NURSE ---
pt sleeping wakes up to verbal stimuli, respirations easy, n/l. pt on monitor. pt in NAD with sitter at bedside for obs.
--- NOTE | 2020-09-06 02:35 | PC.NURSE ---
PT IS MEDICALLY CLEARED BY PA. POISON CONTROL NOTIFIED OF MEDICAL CLEARANCE.
[2020-09-06 03:10] VITALS: BP 126/97; PULSE 92; RESP 20; O2SAT 96
[2020-09-06 04:00] VITALS: BP 128/91; PULSE 91; RESP 18; O2SAT 98
--- NOTE | 2020-09-06 04:32 | PC.NURSE ---
PT AWAKE AND EATING A SANDWICH. PT DENIES ANY COMPLAINTS AT THIS TIME. WILL CONTINUE TO MONITOR PT. WILL CONTINUE TO MONITOR PT.
--- NOTE | 2020-09-06 05:21 | PC.NURSE ---
Patient in bed, sitting, watching TV, refreshing with jennifer eboni, watching TV, no distress observed/reported, will continue to monitor.
[2020-09-06 06:14] VITALS: BP 170/94; PULSE 92; RESP 19; TEMP 36.9; O2SAT 97
--- NOTE | 2020-09-06 07:22 | PC.NURSE ---
Report received from SANDRA Allen. Pt resting, resp unlabored.
[2020-09-06 08:00] VITALS: RESP 20
[2020-09-06] MEDS: Albuterol Sulfate 90 MCG 8 GM INHALER 1 PUFF INHALE (08:25)
--- NOTE | 2020-09-06 08:30 | PC.NURSE ---
Pt awake, alert, tearful at tiumes. Pt denies that she is suicidal, denies that this was an OD attempt. Pt denied feeling depressed when she took ativan last night though tearful when talking about the fact that her grandchildren are in [place].
[2020-09-06] MEDS: Albuterol/Iprat 2.5/0.5MG 3 ML AMPUL.NEB INHALE (08:39)
--- NOTE | 2020-09-06 08:58 | PC.NURSE ---
Pt declined Breo stating that she does not take the medication because it causes her thrush. Pt reporting some SOB, given inhaler, resp therapist called, nebulizer given. Pt reported good effect from both.
--- NOTE | 2020-09-06 09:12 | PC.NURSE ---
CARE team in to evaluate
[2020-09-06] MEDS: hydroCHLOROthiazide 25 MG TABLET PO (10:14)
[2020-09-06] MEDS: Montelukast Sodium 10 MG TABLET PO (10:15)
[2020-09-06] MEDS: Amphetamine Mixed Salts 20 MG TABLET PO (10:15)
[2020-09-06] MEDS: Folic Acid 1 MG TABLET PO (10:15)
[2020-09-06] MEDS: predniSONE 5 MG TABLET PO (10:16)
--- NOTE | 2020-09-06 10:38 | MHC.CARE ---
t/w met with pt for crisis assessment this am who was medically cleared last night per POD. T/w reviewed case with ED provider who then also met again with pt and the plan is to dc pt with referrals. T/w made referral to [facility] after hours to place to a referral for therapy and psych provider for her ongoing depression. T/w was told [facility] would call pt at provided number to set up the intake.
[2020-09-06 11:03] VITALS: BP 146/90; PULSE 88; O2SAT 98
== END 2020-09-06 11:28 | disposition home or self-care (01) ==
PROVIDERS: Physician Assistant; Emergency Provider Internal Medicine; PCP Nurse Practitioner Family
DX: T42.4X1A Poisoning by benzodiazepines, accidental (unintentional), initial encounter (principal); R45.851 Suicidal ideations; Y92.009 Unspecified place in unspecified non-institutional (private) residence as the place of occurrence of the external cause; F11.10 Opioid abuse, uncomplicated; I10 Essential (primary) hypertension; F17.210 Nicotine dependence, cigarettes, uncomplicated; Z71.6 Tobacco abuse counseling; Z79.899 Other long term (current) drug therapy
CPT/HCPCS: 36415; 80053; 80076; 80307; 80320; 82248; 82375; 84702; 85025; 85610; 85730; 93005; 94640; 96361; 96374; 99284; 99285; G0480

== ENCOUNTER 2020-10-06 09:19 | Emergency (ER) | payer OTHER, SELFPAY ==
[2020-10-06] VITALS (7 sets, daily range): BP systolic 137–168; BP diastolic 59–117; PULSE 97–119; RESP 18–22; TEMP 35.9–36.8; O2SAT 94–97; BMI 33.8
--- NOTE | 2020-10-06 10:03 | ED.GENADULT ---
HPI - General Adult General Chief complaint: Asthma <Deanna Domingo NP - Last Filed: 10/06/20 10:06> Stated complaint: asthma, sob <Deanna Domingo NP - Last Filed: 10/06/20 10:06> Time Seen by Provider: 10/06/20 10:01 <Deanna Domingo NP - Last Filed: 10/06/20 10:06> Related Data Home medications: Home Medications Medication Instructions Recorded Confirmed hydrochlorothiazide 25 mg PO DAILY 06/20/20 09/06/20 albuterol sulfate 1 puff PO Q4H PRN 07/26/20 09/06/20 albuterol sulfate 3 ml INHALATION Q4-6H PRN 07/26/20 09/06/20 dextroamphetamine-amphetamine 1 tab PO BID 07/26/20 09/06/20 ipratropium-albuterol 3 ml INHALATION Q4-6H PRN 07/26/20 09/06/20 folic acid 1 mg tablet 1 mg PO DAILY 08/11/20 09/06/20 loratadine 10 mg tablet 10 mg PO BEDTIME 08/11/20 09/06/20 nystatin 100,000 unit/mL oral 5 ml PO QID 08/11/20 09/06/20 suspension prednisone 5 mg tablet 5 mg PO DAILY tab 09/01/20 09/06/20 Previous Rx's Medication Instructions Recorded dextromethorphan-guaifenesin 2 tab PO BID #12 tab 07/29/20 [Mucinex DM] fluticasone 232 mcg-salmeterol 14 1 inh INHALATION BID 30 Days #1 ea 08/11/20 mcg/actuation breath activated powdr lorazepam 0.5 mg tablet 0.5 mg PO TID PRN 30 Days #30 tab 08/11/20 montelukast 10 mg tablet 10 mg PO DAILY 30 Days #30 tab 08/11/20 albuterol sulfate 1 inh INHALATION QID PRN #8.5 g 10/06/20 doxycycline monohydrate 100 mg PO BID 10 Days #20 cap 10/06/20 hydrocodone-homatropine [Hycodan 5 ml PO Q6H PRN #473 ml 10/06/20 (with homatropine)] ipratropium-albuterol 3 ml INHALATION Q6-8H PRN #180 ml 10/06/20 prednisone 60 mg PO DAILY 5 Days #15 tab 10/06/20 <Deanna Domingo NP - Last Filed: 10/06/20 10:06> Allergies/adverse reactions: Allergies Allergy/AdvReac Type Severity Reaction Status Date / Time hydromorphone [From DILAUDID] Allergy Severe SEIZURES Verified 09/05/20 19:04 oxycodone [OXYCODONE] Allergy Severe SEIZURES Verified 09/05/20 19:04 gabapentin [GABAPENTIN] Allergy Intermediate MUSCLE ACHE Verified 09/05/20 19:04 bupropion [From WELLBUTRIN] Allergy Unknown SEIZURES Verified 09/05/20 19:04 phenytoin [Dilantin] Allergy Unknown Unknown Verified 09/05/20 19:04 <Deanna Domingo NP - Last Filed: 10/06/20 10:06> PMFSH Past Medical History Medical History: Medical History ADHD Alcohol abuse Anxiety Asthma Asthma-COPD overlap syndrome Cocaine abuse COPD (chronic obstructive pulmonary disease) Epilepsy Fibromyalgia History of suicide attempt HTN (hypertension) Sleep apnea Tracheomalacia <Deanna Domingo NP - Last Filed: 10/06/20 10:06> Surgical History: Surgical History History of cholecystectomy Previous section <Deanna Domingo NP - Last Filed: 10/06/20 10:06> Social History Social History: Social History Household Members: Spouse, Family and Children Housing: House Alcohol intake: never Smoking Status: Former smoker Tobacco Type: Cigarette Substance Use Type: Marijuana Advance Directives: No Advance Directives Information Provided: No service: No <Deanna Domingo NP - Last Filed: 10/06/20 10:06> Physical Exam Vital Signs: Vital Signs: Last Vital Signs Temp 97.7 F 10/06/20 13:48 Pulse 119 H 10/06/20 13:48 Resp 22 H 10/06/20 13:48 BP 137/59 L 10/06/20 13:48 Pulse Ox 95 10/06/20 13:48 Body Mass Index 33.8 <Deanna Domingo NP - Last Filed: 10/06/20 10:06> Vital Signs: Last Vital Signs Temp 97.7 F 10/06/20 13:48 Pulse 119 H 10/06/20 13:48 Resp 22 H 10/06/20 13:48 BP 137/59 L 10/06/20 13:48 Pulse Ox 95 10/06/20 13:48 Body Mass Index 33.8 <DANA Guo - Last Filed: 10/06/20 14:26> Course Course Course Narrative: 1000-This is rapid medical exam. 49 yo female here with shortness of breath, cough, wheezing. No fevers, chills, body aches or COVID exposure. Has been walking outside in the cold air and around wood burning stoves. Using duoneb, proair and oral pred 5mg without use. Will check COVID, labs, CXR. Stable saturation. Deferred additional HPI, PE, ROS to primary provider. <Deanna Domingo NP - Last Filed: 10/06/20 10:06> Medical Decision Making Lab Data Result diagrams: : 10/06/20 10:40 10/06/20 10:40 <Deanna Domingo NP - Last Filed: 10/06/20 10:06> Labs: Lab Results 10/06/20 10/06/20 10/06/20 Range/Units 10:08 10:40 10:40 WBC 9.7 (4.8-10.8) X10*3/uL RBC 4.76 (4.20-5.50) X10*6/uL Hgb 15.7 (12.0-16.0) g/dl Hct 46.3 (37-47) % MCV 97.3 (80-98) fL MCH 33.0 (27.0-33.0) pg MCHC 33.9 (31.0-35.0) g/dl RDW 12.6 (11.0-16.0) % Plt Count 360 (160-400) X10*3/uL MPV 9.3 L (9.4-12.3) fL Immature Gran % (Auto) 0.7 H (0.0-0.4) % Neut % (Auto) 59.4 (45-73) % Lymph % (Auto) 28.6 (20-40) % [place] % (Auto) 9.3 (2-11) % Eos % (Auto) 1.4 (0-4) % Baso % (Auto) 0.6 (0-2) % Lymph # (Auto) 2.8 (1.2-4.9) X10*3/uL [place] # (Auto) 0.9 (0.1-1.2) X10*3/uL Eos # (Auto) 0.1 (0.0-0.4) X10*3/uL Baso # (Auto) 0.1 (0.0-0.2) X10*3/uL Abs Immat Gran (auto) 0.07 H (0.00-0.03) X10*3/uL Absolute Neuts (auto) 5.8 (2.0-8.3) X10*3/uL Absolute Nucleated RBC 0.000 (0.0-0.012) X10*3/uL Nucleated RBC % (auto) 0.0 (0.0-0.2) /100WBC Hold Blue Top SEE NOTE Sodium (135-145) mmol/L Potassium (3.3-5.1) mmol/l Chloride (96-108) mmol/L Carbon Dioxide (22-29) mmol/L Anion Gap (12-20) BUN (9-16) mg/dL Creatinine (0.5-1.4) mg/dL Estim Creat Clear Calc Estimated GFR Random Glucose (60-115) mg/dL Calcium (8.4-10.2) mg/dL COVID-19 ([facility]) Negative (Negative) COVID-19 Clin Com See Note 10/06/20 Range/Units 10:40 WBC (4.8-10.8) X10*3/uL RBC (4.20-5.50) X10*6/uL Hgb (12.0-16.0) g/dl Hct (37-47) % MCV (80-98) fL MCH (27.0-33.0) pg MCHC (31.0-35.0) g/dl RDW (11.0-16.0) % Plt Count (160-400) X10*3/uL MPV (9.4-12.3) fL Immature Gran % (Auto) (0.0-0.4) % Neut % (Auto) (45-73) % Lymph % (Auto) (20-40) % [place] % (Auto) (2-11) % Eos % (Auto) (0-4) % Baso % (Auto) (0-2) % Lymph # (Auto) (1.2-4.9) X10*3/uL [place] # (Auto) (0.1-1.2) X10*3/uL Eos # (Auto) (0.0-0.4) X10*3/uL Baso # (Auto) (0.0-0.2) X10*3/uL Abs Immat Gran (auto) (0.00-0.03) X10*3/uL Absolute Neuts (auto) (2.0-8.3) X10*3/uL Absolute Nucleated RBC (0.0-0.012) X10*3/uL Nucleated RBC % (auto) (0.0-0.2) /100WBC Hold Blue Top Sodium 142 (135-145) mmol/L Potassium 4.3 (3.3-5.1) mmol/l Chloride 104 (96-108) mmol/L Carbon Dioxide 28 (22-29) mmol/L Anion Gap 14 (12-20) BUN 15 (9-16) mg/dL Creatinine 0.82 (0.5-1.4) mg/dL Estim Creat Clear Calc 80.1 Estimated GFR > 60 Random Glucose 118 H (60-115) mg/dL Calcium 9.5 D (8.4-10.2) mg/dL COVID-19 ([facility]) (Negative) COVID-19 Clin Com <Deanna Domingo, [employer] - Last Filed: 10/06/20 10:06> Lab Results 10/06/20 10/06/20 10/06/20 Range/Units 10:08 10:40 10:40 WBC 9.7 (4.8-10.8) X10*3/uL RBC 4.76 (4.20-5.50) X10*6/uL Hgb 15.7 (12.0-16.0) g/dl Hct 46.3 (37-47) % MCV 97.3 (80-98) fL MCH 33.0 (27.0-33.0) pg MCHC 33.9 (31.0-35.0) g/dl RDW 12.6 (11.0-16.0) % Plt Count 360 (160-400) X10*3/uL MPV 9.3 L (9.4-12.3) fL Immature Gran % (Auto) 0.7 H (0.0-0.4) % Neut % (Auto) 59.4 (45-73) % Lymph % (Auto) 28.6 (20-40) % [place] % (Auto) 9.3 (2-11) % Eos % (Auto) 1.4 (0-4) % Baso % (Auto) 0.6 (0-2) % Lymph # (Auto) 2.8 (1.2-4.9) X10*3/uL [place] # (Auto) 0.9 (0.1-1.2) X10*3/uL Eos # (Auto) 0.1 (0.0-0.4) X10*3/uL Baso # (Auto) 0.1 (0.0-0.2) X10*3/uL Abs Immat Gran (auto) 0.07 H (0.00-0.03) X10*3/uL Absolute Neuts (auto) 5.8 (2.0-8.3) X10*3/uL Absolute Nucleated RBC 0.000 (0.0-0.012) X10*3/uL Nucleated RBC % (auto) 0.0 (0.0-0.2) /100WBC Hold Blue Top SEE NOTE Sodium (135-145) mmol/L Potassium (3.3-5.1) mmol/l Chloride (96-108) mmol/L Carbon Dioxide (22-29) mmol/L Anion Gap (12-20) BUN (9-16) mg/dL Creatinine (0.5-1.4) mg/dL Estim Creat Clear Calc Estimated GFR Random Glucose (60-115) mg/dL Calcium (8.4-10.2) mg/dL COVID-19 ([facility]) Negative (Negative) COVID-19 Clin Com See Note 01/19/21 Range/Units 10:40 WBC (4.8-10.8) X10*3/uL RBC (4.20-5.50) X10*6/uL Hgb (12.0-16.0) g/dl Hct (37-47) % MCV (80-98) fL MCH (27.0-33.0) pg MCHC (31.0-35.0) g/dl RDW (11.0-16.0) % Plt Count (160-400) X10*3/uL MPV (9.4-12.3) fL Immature Gran % (Auto) (0.0-0.4) % Neut % (Auto) (45-73) % Lymph % (Auto) (20-40) % [place] % (Auto) (2-11) % Eos % (Auto) (0-4) % Baso % (Auto) (0-2) % Lymph # (Auto) (1.2-4.9) X10*3/uL [place] # (Auto) (0.1-1.2) X10*3/uL Eos # (Auto) (0.0-0.4) X10*3/uL Baso # (Auto) (0.0-0.2) X10*3/uL Abs Immat Gran (auto) (0.00-0.03) X10*3/uL Absolute Neuts (auto) (2.0-8.3) X10*3/uL Absolute Nucleated RBC (0.0-0.012) X10*3/uL Nucleated RBC % (auto) (0.0-0.2) /100WBC Hold Blue Top Sodium 142 (135-145) mmol/L Potassium 4.3 (3.3-5.1) mmol/l Chloride 104 (96-108) mmol/L Carbon Dioxide 28 (22-29) mmol/L Anion Gap 14 (12-20) BUN 15 (9-16) mg/dL Creatinine 0.82 (0.5-1.4) mg/dL Estim Creat Clear Calc 80.1 Estimated GFR > 60 Random Glucose 118 H (60-115) mg/dL Calcium 9.5 D (8.4-10.2) mg/dL COVID-19 ([facility]) (Negative) COVID-19 Clin Com <DANA Guo - Last Filed: 10/06/20 14:26> Discharge Plan Discharge Clinical Impression: Asthma with acute exacerbation, Acute bronchospasm <Deanna Domingo NP - Last Filed: 10/06/20 10:06> Instructions: Asthma (ED), COPD (Chronic Obstructive Pulmonary Disease) (ED), Bronchospasm (ED) <Deanna Domingo NP - Last Filed: 10/06/20 10:06> Prescriptions: New doxycycline monohydrate 100 mg capsule 100 mg PO BID 10 Days Qty: 20 RF: 0 prednisone 20 mg tablet 60 mg PO DAILY 5 Days Qty: 15 RF: 0 ipratropium-albuterol 0.5 mg-3 mg(2.5 mg base)/3 mL solution for nebulization 3 ml inhalation Q6-8H PRN (Reason: shortness of breath or wheezing) Qty: 180 RF: 0 hydrocodone-homatropine [Hycodan (with homatropine)] 5-1.5 mg/5 mL syrup 5 ml PO Q6H PRN (Reason: cough) Qty: 473 RF: 0 albuterol sulfate 90 mcg/actuation HFA aerosol inhaler 1 inh inhalation QID PRN (Reason: shortness of breath or wheezing) Qty: 8.5 RF: 0 No Action hydrochlorothiazide 25 mg Tablet 25 mg PO DAILY RF: 0 ipratropium-albuterol 0.5 mg-3 mg(2.5 mg base)/3 mL solution for nebulization 3 ml inhalation Q4-6H PRN (Reason: Shortness Of Breath Or Wheezing) RF: 0 albuterol sulfate 2.5 mg /3 mL (0.083 %) solution for nebulization 3 ml inhalation Q4-6H PRN (Reason: Shortness Of Breath Or Wheezing) RF: 0 dextroamphetamine-amphetamine 20 mg tablet 1 tab PO BID RF: 0 albuterol sulfate 90 mcg/actuation HFA aerosol inhaler 1 puff PO Q4H PRN (Reason: wheezing) RF: 0 Mucinex DM 30-600 mg Tablet Extended Release 12 Hr 2 tab PO BID Qty: 12 RF: 0 folic acid 1 mg tablet 1 mg PO DAILY RF: 0 loratadine 10 mg tablet 10 mg PO BEDTIME RF: 0 nystatin 100,000 unit/mL suspension 5 ml PO QID RF: 0 lorazepam 0.5 mg tablet 0.5 mg PO TID PRN (Reason: anxiety) 30 Days Qty: 30 RF: 1 montelukast [Singulair] 10 mg tablet 10 mg PO DAILY 30 Days Qty: 30 RF: 3 fluticasone propion-salmeterol [AirDuo RespiClick] 232-14 mcg/actuation aerosol powdr breath activated 1 inh inhalation BID 30 Days Qty: 1 RF: 3 prednisone 5 mg tablet 5 mg PO DAILY RF: 0 <Deanna Domingo NP - Last Filed: 10/06/20 10:06> Referrals: Isabel Naqvi, [employer]BL[employer] [Primary Care Provider] - 2 days <Deanna Domingo NP - Last Filed: 10/06/20 10:06> Print Language: [place] <Deanna Domingo NP - Last Filed: 10/06/20 10:06>
--- NOTE | 2020-10-06 10:06 | XR_ITS ---
EXAMINATION: XR CHEST CLINICAL INFORMATION: Cough and wheezing. COMPARISON: Chest 07/26/2020 TECHNIQUE: 2 views of the chest were obtained. FINDINGS: The lungs are well-expanded and clear. There is platelike atelectasis of right lower lobe. The heart size and pulmonary vascularity is normal. No gross bony abnormality seen. XR/XR chest 2V IMPRESSION: Platelike atelectasis right lower lobe. The lungs are clear.
[2020-10-06 10:39] LABS: COVID-19 Test Negative (Negative)
[2020-10-06 10:49] LABS: MANUAL DIFF FLAG NO
[2020-10-06 10:52] LABS: Basophils Absolute Auto 0.1 X10*3/uL (0.0-0.2); Basophils Percent Auto 0.6 % (0-2); Eosinophils Absolute Auto 0.1 X10*3/uL (0.0-0.4); Eosinophils Percent Auto 1.4 % (0-4); Hematocrit 46.3 % (37-47); Hemoglobin 15.7 g/dl (12.0-16.0); Imm Gran Abs Auto 0.07 X10*3/uL (0.00-0.03); Imm Gran Pct Auto 0.7 % (0.0-0.4); Lymphocytes Absolute Auto 2.8 X10*3/uL (1.2-4.9); Lymphocytes Percent Auto 28.6 % (20-40); Mean Corpuscular HGB Conc 33.9 g/dl (31.0-35.0); Mean Corpuscular Volume 97.3 fL (80-98); Mean Platelet Volume 9.3 fL (9.4-12.3); Monocytes Absolute Auto 0.9 X10*3/uL (0.1-1.2); Monocytes Percent Auto 9.3 % (2-11); Neutrophils Absolute Auto 5.8 X10*3/uL (2.0-8.3); Neutrophils Percent Auto 59.4 % (45-73); Platelet Count 360 X10*3/uL (160-400); Red Blood Count 4.76 X10*6/uL (4.20-5.50); Red Cell Distribution Width 12.6 % (11.0-16.0); White Blood Count 9.7 X10*3/uL (4.8-10.8)
[2020-10-06] MEDS: Albuterol/Iprat 2.5/0.5MG 3 ML AMPUL.NEB INHALE (11:00)
[2020-10-06 11:17] LABS: Anion Gap 14 (12-20); Blood Urea Nitrogen 15 mg/dL (9-16); Calcium 9.5 mg/dL (8.4-10.2); Carbon Dioxide 28 mmol/L (22-29); Chloride 104 mmol/L (96-108); Creatinine Clr Calc Pharmacy 80.1; Estimated Glomerular Filt Rate > 60; Glucose Random 118 mg/dL (60-115); Potassium 4.3 mmol/l (3.3-5.1); Sodium 142 mmol/L (135-145)
--- NOTE | 2020-10-06 13:47 | PC.NURSE ---
strong steady gait to ed 17h. slightly sob at arrival. LS coarse but good air movement. states she feels better since updraft. on 5mg prednisone daily.
--- NOTE | 2020-10-06 14:03 | ED.ASTHMA ---
HPI - Asthma General Chief Complaint: Asthma Stated Complaint: asthma, sob Time Seen by Provider: 10/06/20 10:01 Source: patient Mode of arrival: ambulatory Limitations: no limitations History of Present Illness HPI Narrative: 49yoF c PMHx of asthma, COPD, tracheomalacia, sleep apnea, hypertension, anxiety, ADHD, epilepsy, fibromyalgia, cocaine and alcohol abuse presenting to the ED with complaints of dry cough with increasing wheezing/shortness of breath for the past 2 days with chest congestion. Reports she has been using her albuterol inhaler every 4-6 hours without any symptomatic relief along with her nebulizer solutions last use this morning around 07:00 with mild symptomatic relief. Denies any fevers, chills, nausea/vomiting, chest pain, dyspnea on exertion orthopnea, palpitations, sputum production, abdominal pain, diarrhea, constipation, extremity swelling or any other symptoms complaints or concerns at this time. Denies recent travel or sick contacts. Related Data Home Medications Medication Instructions Recorded Confirmed hydrochlorothiazide 25 mg PO DAILY 06/20/20 09/06/20 albuterol sulfate 1 puff PO Q4H PRN 07/26/20 09/06/20 albuterol sulfate 3 ml INHALATION Q4-6H PRN 07/26/20 09/06/20 dextroamphetamine-amphetamine 1 tab PO BID 07/26/20 09/06/20 ipratropium-albuterol 3 ml INHALATION Q4-6H PRN 07/26/20 09/06/20 folic acid 1 mg tablet 1 mg PO DAILY 08/11/20 09/06/20 loratadine 10 mg tablet 10 mg PO BEDTIME 08/11/20 09/06/20 nystatin 100,000 unit/mL oral 5 ml PO QID 08/11/20 09/06/20 suspension prednisone 5 mg tablet 5 mg PO DAILY tab 09/01/20 09/06/20 Previous Rx's Medication Instructions Recorded dextromethorphan-guaifenesin 2 tab PO BID #12 tab 07/29/20 [Mucinex DM] fluticasone 232 mcg-salmeterol 14 1 inh INHALATION BID 30 Days #1 ea 08/11/20 mcg/actuation breath activated powdr lorazepam 0.5 mg tablet 0.5 mg PO TID PRN 30 Days #30 tab 08/11/20 montelukast 10 mg tablet 10 mg PO DAILY 30 Days #30 tab 08/11/20 Allergies Allergy/AdvReac Type Severity Reaction Status Date / Time hydromorphone [From DILAUDID] Allergy Severe SEIZURES Verified 09/05/20 19:04 oxycodone [OXYCODONE] Allergy Severe SEIZURES Verified 09/05/20 19:04 gabapentin [GABAPENTIN] Allergy Intermediate MUSCLE ACHE Verified 09/05/20 19:04 bupropion [From WELLBUTRIN] Allergy Unknown SEIZURES Verified 09/05/20 19:04 phenytoin [Dilantin] Allergy Unknown Unknown Verified 09/05/20 19:04 Review of Systems Review of Systems: Constitutional : denies med noncompliance, no history of PE or DVT, denies recent travel, No Fever, No Chills ENT/Mouth : No Hoarseness, No sore throat, No Rhinorrhea Eyes: No Redness, No Discharge, No Vision Changes Cardiovascular : No Chest Pain, No SOB, No Dyspnea on Exertion, No Edema, no pleurisy, Respiratory : +Wheezing, + SOB, + Cough, No Sputum, no stridor, no hemoptysis, Gastrointestinal : No Nausea, No Vomiting, No Diarrhea, No abdominal Pain Genitourinary : No Dysuria, No Hematuria Musculoskeletal : No joint pain, No Myalgias Extremities: no extremity swelling /pain Skin : No rash, no itching, no swelling Neuro : No Weakness, No Numbness, No Headache Psych : No anxiety, depression Heme/Lymph: No Bruising, No Bleeding Endocrine : No Polyuria, No Polydipsia Yes all other systems are reviewed and are negative PMFSH Past Medical History Attestation statement: The following information was validated with the patient. Medical History ADHD Alcohol abuse Anxiety Asthma Asthma-COPD overlap syndrome Cocaine abuse COPD (chronic obstructive pulmonary disease) Epilepsy Fibromyalgia History of suicide attempt HTN (hypertension) Sleep apnea Tracheomalacia Surgical History History of cholecystectomy Previous section Social History Social History Household Members: Spouse, Family and Children Housing: House Alcohol intake: never Smoking Status: Former smoker Tobacco Type: Cigarette Substance Use Type: Marijuana Advance Directives: No Advance Directives Information Provided: No service: No Physical Exam Vital Signs: Vital Signs: Last Vital Signs Temp 97.7 F 10/06/20 13:48 Pulse 119 H 10/06/20 13:48 Resp 22 H 10/06/20 13:48 BP 137/59 L 10/06/20 13:48 Pulse Ox 95 10/06/20 13:48 Body Mass Index 33.8 vital signs have been reviewed as normal and appeared to be correct. Blood pressure hypertensive. Heart rate tachycardic. Respiration rate tachypneic. Temperature normal. Oxygen saturation normal. Appearance: Alert. Oriented X3. Mild respiratory distress otherwise no other acute distress.. Head: Normal external exam. Normocephalic. Atraumatic. No Torres signs noted. No raccoon eyes noted Eyes: PERRLA. EOMI. Conjunctiva and sclera normal. Eyelids normal. ENT: EAC normal. TM's Normal. Pharynx normal. Uvula midline. Moist mucous membranes. No trismus noted. No drooling noted. No muffled voice noted. Neck: Normal inspection. Neck supple. FROM. No adenopathy. Thyroid Normal. No meningeal signs. No neck mass noted. CVS: Normal heart rate and rhythm. Heart sound normal. No murmurs noted. Pulses normal throughout. Respiratory: Mild respiratory distress with inspiratory and expiratory wheezing throughout with decreased breath sounds. Painless inspiration. No rales/rhonchi noted. Chest nontender. No accessory muscle usage noted or decreased air movement noted. Back: Full range of motion noted. Skin: Skin warm and dry. Normal skin color. Normal skin turgor. No rashes/lesions/lacerations noted. Extremities: No lower extremity edema. No calf tenderness noted. Extremities exhibit normal range of motion. Extremities nontender. Neuro: Oriented X 3. No motor deficit. No sensory deficit. Reflexes normal. Course Course Course Narrative: 14PM - 49yoF c PMHx of asthma, COPD, tracheomalacia, sleep apnea, HTN, anxiety, ADHD, epilepsy, fibromyalgia, cocaine and alcohol abuse presenting to the ED c c/o dry cough c increasing wheezing/SOB x 2 days. - on exam patient has mild respiratory distress with inspiratory and expiratory wheezing throughout. Decreased breath sounds. No accessory muscle usage. No rales or rhonchi noted. Patient is noted to have tachycardic and tachypneic and hypertensive otherwise is afebrile. Patient had a breathing treatment out in triage and reports moderate symptomatic relief. Labs were obtained and all within normal limits including white blood cell count. Chest x-ray revealed atelectasis to the right lower lobe although no other acute processes noted. Rapid COVID negative. - will give the patient 125 mg of Solu-Medrol, 2 mg of magnesium then re-evaluate. I offered the patient admission although patient declining reports that she would like to be discharged after the Solu-Medrol magnesium. Therefore most likely patient will be discharged with antibiotics and symptomatic treatment along with steroids along with instructions return if any new or worsening symptoms. Patient understands agrees with this plan. MDM - Asthma Differential Diagnosis Differential diagnosis: Likely Acute exacerbation, Pneumonia, COPD exacerbation and Pneumothorax Medical Records Attestation: I reviewed the patient's medical records. Lab Data Attestation: I reviewed the patient's lab results. Result diagrams: 10/06/20 10:40 10/06/20 10:40 Labs: Lab Results 10/06/20 10/06/20 10/06/20 Range/Units 10:08 10:40 10:40 WBC 9.7 (4.8-10.8) X10*3/uL RBC 4.76 (4.20-5.50) X10*6/uL Hgb 15.7 (12.0-16.0) g/dl Hct 46.3 (37-47) % MCV 97.3 (80-98) fL MCH 33.0 (27.0-33.0) pg MCHC 33.9 (31.0-35.0) g/dl RDW 12.6 (11.0-16.0) % Plt Count 360 (160-400) X10*3/uL MPV 9.3 L (9.4-12.3) fL Immature Gran % (Auto) 0.7 H (0.0-0.4) % Neut % (Auto) 59.4 (45-73) % Lymph % (Auto) 28.6 (20-40) % [place] % (Auto) 9.3 (2-11) % Eos % (Auto) 1.4 (0-4) % Baso % (Auto) 0.6 (0-2) % Lymph # (Auto) 2.8 (1.2-4.9) X10*3/uL [place] # (Auto) 0.9 (0.1-1.2) X10*3/uL Eos # (Auto) 0.1 (0.0-0.4) X10*3/uL Baso # (Auto) 0.1 (0.0-0.2) X10*3/uL Abs Immat Gran (auto) 0.07 H (0.00-0.03) X10*3/uL Absolute Neuts (auto) 5.8 (2.0-8.3) X10*3/uL Absolute Nucleated RBC 0.000 (0.0-0.012) X10*3/uL Nucleated RBC % (auto) 0.0 (0.0-0.2) /100WBC Hold Blue Top SEE NOTE Sodium (135-145) mmol/L Potassium (3.3-5.1) mmol/l Chloride (96-108) mmol/L Carbon Dioxide (22-29) mmol/L Anion Gap (12-20) BUN (9-16) mg/dL Creatinine (0.5-1.4) mg/dL Estim Creat Clear Calc Estimated GFR Random Glucose (60-115) mg/dL Calcium (8.4-10.2) mg/dL COVID-19 ([facility]) Negative (Negative) COVID-19 Clin Com See Note 10/06/20 Range/Units 10:40 WBC (4.8-10.8) X10*3/uL RBC (4.20-5.50) X10*6/uL Hgb (12.0-16.0) g/dl Hct (37-47) % MCV (80-98) fL MCH (27.0-33.0) pg MCHC (31.0-35.0) g/dl RDW (11.0-16.0) % Plt Count (160-400) X10*3/uL MPV (9.4-12.3) fL Immature Gran % (Auto) (0.0-0.4) % Neut % (Auto) (45-73) % Lymph % (Auto) (20-40) % [place] % (Auto) (2-11) % Eos % (Auto) (0-4) % Baso % (Auto) (0-2) % Lymph # (Auto) (1.2-4.9) X10*3/uL [place] # (Auto) (0.1-1.2) X10*3/uL Eos # (Auto) (0.0-0.4) X10*3/uL Baso # (Auto) (0.0-0.2) X10*3/uL Abs Immat Gran (auto) (0.00-0.03) X10*3/uL Absolute Neuts (auto) (2.0-8.3) X10*3/uL Absolute Nucleated RBC (0.0-0.012) X10*3/uL Nucleated RBC % (auto) (0.0-0.2) /100WBC Hold Blue Top Sodium 142 (135-145) mmol/L Potassium 4.3 (3.3-5.1) mmol/l Chloride 104 (96-108) mmol/L Carbon Dioxide 28 (22-29) mmol/L Anion Gap 14 (12-20) BUN 15 (9-16) mg/dL Creatinine 0.82 (0.5-1.4) mg/dL Estim Creat Clear Calc 80.1 Estimated GFR > 60 Random Glucose 118 H (60-115) mg/dL Calcium 9.5 D (8.4-10.2) mg/dL COVID-19 ([facility]) (Negative) COVID-19 Clin Com Imaging Data Chest x-ray: Attestation: I personally reviewed and interpreted this imaging study as follows: Radiologist's impression: FINDINGS: The lungs are well-expanded and clear. There is platelike atelectasis of right lower lobe. The heart size and pulmonary vascularity is normal. No gross bony abnormality seen. XR/XR chest 2V IMPRESSION: Platelike atelectasis right lower lobe. The lungs are clear. Critical Care Time Critical Care Time Critical Care Time: Yes Total Critical Care Time: 60 Attestation: I personally attest to this time spent taking care of the patient Discharge Plan Discharge Clinical Impression: Asthma with acute exacerbation, Acute bronchospasm Instructions: Asthma (ED), Bronchospasm (ED), COPD (Chronic Obstructive Pulmonary Disease) (ED) Prescriptions: No Action hydrochlorothiazide 25 mg Tablet 25 mg PO DAILY RF: 0 ipratropium-albuterol 0.5 mg-3 mg(2.5 mg base)/3 mL solution for nebulization 3 ml inhalation Q4-6H PRN (Reason: Shortness Of Breath Or Wheezing) RF: 0 albuterol sulfate 2.5 mg /3 mL (0.083 %) solution for nebulization 3 ml inhalation Q4-6H PRN (Reason: Shortness Of Breath Or Wheezing) RF: 0 dextroamphetamine-amphetamine 20 mg tablet 1 tab PO BID RF: 0 albuterol sulfate 90 mcg/actuation HFA aerosol inhaler 1 puff PO Q4H PRN (Reason: wheezing) RF: 0 Mucinex DM 30-600 mg Tablet Extended Release 12 Hr 2 tab PO BID Qty: 12 RF: 0 folic acid 1 mg tablet 1 mg PO DAILY RF: 0 loratadine 10 mg tablet 10 mg PO BEDTIME RF: 0 nystatin 100,000 unit/mL suspension 5 ml PO QID RF: 0 lorazepam 0.5 mg tablet 0.5 mg PO TID PRN (Reason: anxiety) 30 Days Qty: 30 RF: 1 montelukast [Singulair] 10 mg tablet 10 mg PO DAILY 30 Days Qty: 30 RF: 3 fluticasone propion-salmeterol [AirDuo RespiClick] 232-14 mcg/actuation aerosol powdr breath activated 1 inh inhalation BID 30 Days Qty: 1 RF: 3 prednisone 5 mg tablet 5 mg PO DAILY RF: 0
[2020-10-06] MEDS: Magnesium Sulfate/H2O 2 GM/50 ML PIGGYBACK IV (14:32)
[2020-10-06] MEDS: methylPREDNISolone Sod Succ/PF 125 MG/2 ML VIAL IVPUSH (14:32)
--- NOTE | 2020-10-06 15:19 | PC.NURSE ---
Pt has sao2 of 94/95% on room air and unlabored at rest. but with exertion becomes tachipnic and has coarse audible wheezes again. provider aware.
--- NOTE | 2020-10-06 18:23 | PC.NURSE ---
tolerated walking better than last time. still coarse but less work of breathing. plan to discharge.
[2020-10-06] MEDS: LORazepam 0.5 MG TABLET PO (18:37)
== END 2020-10-06 18:44 | disposition home or self-care (01) ==
PROVIDERS: Nurse Practitioner Family; Emergency Provider Emergency Medicine; PCP Nurse Practitioner Family
DX: J44.1 Chronic obstructive pulmonary disease with (acute) exacerbation (principal); J45.901 Unspecified asthma with (acute) exacerbation; Z20.822 Contact with and (suspected) exposure to COVID-19; J39.8 Other specified diseases of upper respiratory tract; I10 Essential (primary) hypertension; F10.10 Alcohol abuse, uncomplicated; F14.10 Cocaine abuse, uncomplicated; F17.210 Nicotine dependence, cigarettes, uncomplicated; Z91.5 Personal history of self-harm
CPT/HCPCS: 36415; 71046; 80048; 85025; 87635; 94640; 96365; 96366; 96375; 99284; 99285; 99291; J2930; J3475

== ENCOUNTER 2020-10-08 14:09 | Inpatient (IN) | payer OTHER, SELFPAY ==
[2020-10-08 14:21] VITALS: BP 185/86; PULSE 100; RESP 20; TEMP 37.1; O2SAT 95; BMI 28.0
--- NOTE | 2020-10-08 14:30 | PC.NURSE ---
SEEN BY PROVIDER AT THIS TIME
--- NOTE | 2020-10-08 14:36 | ECG_ITS ---
Test Reason : SOB Blood Pressure : / mmHG Vent. Rate : 102 BPM Atrial Rate : 102 BPM P-R Int : 134 ms QRS Dur : 094 ms QT Int : 380 ms P-R-T Axes : 062 046 068 degrees QTc Int : 495 ms Sinus tachycardia Otherwise normal ECG When compared with ECG of 05-SEP-2020 19:39, No significant change was found Referred By: David Silva Electronically Signed By:ELVIS PEGUERO
--- NOTE | 2020-10-08 14:36 | XR_ITS ---
EXAMINATION: XR CHEST CLINICAL INFORMATION: Chest pain, shortness of breath COMPARISON: Chest radiographs 10/06/2020, 07/26/2020 TECHNIQUE: Portable upright AP view of the chest was obtained. FINDINGS: There is bibasilar linear subsegmental atelectasis. Small groundglass opacity versus blunting right lateral costophrenic angle demonstrated. The heart is normal in size. The vascularity is normal. There is no pneumothorax or pleural reaction. The hilar and mediastinal contours and bony structures are unremarkable. XR/XR chest 1V IMPRESSION: 1. Bibasilar linear subsegmental atelectasis. 2. Blunting right lateral costophrenic angle versus small groundglass opacity.
--- NOTE | 2020-10-08 14:39 | ED.ASTHMA ---
HPI - Asthma General Chief Complaint: Asthma Stated Complaint: asthma Time Seen by Provider: 10/08/20 14:19 Source: patient Limitations: no limitations History of Present Illness HPI Narrative: 49-year-old female who presents emergency department for evaluation of shortness of breath, cough and chest pain. The patient states that she has been sick for approximately 6 days. She states that she has a cough which is mainly nonproductive but last night she was able to produce some dark green foul tasting sputum. She states that she has pain in the center of her chest mainly with coughing and breathing. She points to her mid sternum and describes the pain as a sharp intermittent stabbing pain which is moderate in intensity. The patient states that she has been feeling anxious and has felt her heart palpitating. She has felt hot and cold at home but did not have a fever. She states that she has not been able to sleep. She was seen in the emergency department on October 06, 2020 and diagnosed with possible right lower pneumonia and asthma exacerbation. She was started on prednisone and doxycycline. She states that despite taking his medications, she is feeling significantly worse, therefore she came back to the emergency department for evaluation. The patient states she has a long history of asthma. She has never been intubated. She was last admitted to the hospital and July of 2020 and states that she spent approximately 3 days in the hospital getting IV steroids. Related Data Home Medications Medication Instructions Recorded Confirmed hydrochlorothiazide 25 mg PO DAILY 06/20/20 09/06/20 albuterol sulfate 1 puff PO Q4H PRN 07/26/20 09/06/20 albuterol sulfate 3 ml INHALATION Q4-6H PRN 07/26/20 09/06/20 dextroamphetamine-amphetamine 1 tab PO BID 07/26/20 09/06/20 ipratropium-albuterol 3 ml INHALATION Q4-6H PRN 07/26/20 09/06/20 folic acid 1 mg tablet 1 mg PO DAILY 08/11/20 09/06/20 loratadine 10 mg tablet 10 mg PO BEDTIME 08/11/20 09/06/20 nystatin 100,000 unit/mL oral 5 ml PO QID 08/11/20 09/06/20 suspension prednisone 5 mg tablet 5 mg PO DAILY tab 09/01/20 09/06/20 Previous Rx's Medication Instructions Recorded dextromethorphan-guaifenesin 2 tab PO BID #12 tab 07/29/20 [Mucinex DM] fluticasone 232 mcg-salmeterol 14 1 inh INHALATION BID 30 Days #1 ea 08/11/20 mcg/actuation breath activated powdr lorazepam 0.5 mg tablet 0.5 mg PO TID PRN 30 Days #30 tab 08/11/20 montelukast 10 mg tablet 10 mg PO DAILY 30 Days #30 tab 08/11/20 albuterol sulfate 1 inh INHALATION QID PRN #8.5 g 10/06/20 doxycycline monohydrate 100 mg PO BID 10 Days #20 cap 10/06/20 hydrocodone-homatropine [Hycodan 5 ml PO Q6H PRN #473 ml 10/06/20 (with homatropine)] ipratropium-albuterol 3 ml INHALATION Q6-8H PRN #180 ml 10/06/20 prednisone 60 mg PO DAILY 5 Days #15 tab 10/06/20 Allergies Allergy/AdvReac Type Severity Reaction Status Date / Time hydromorphone [From DILAUDID] Allergy Severe SEIZURES Verified 09/05/20 19:04 oxycodone [OXYCODONE] Allergy Severe SEIZURES Verified 09/05/20 19:04 gabapentin [GABAPENTIN] Allergy Intermediate MUSCLE ACHE Verified 09/05/20 19:04 bupropion [From WELLBUTRIN] Allergy Unknown SEIZURES Verified 09/05/20 19:04 phenytoin [Dilantin] Allergy Unknown Unknown Verified 09/05/20 19:04 Review of Systems Review of Systems: Yes all other systems are reviewed and are negative Neurologic: Reports Abnormal speech present [facility] Past Medical History Medical History ADHD Alcohol abuse Anxiety Asthma Asthma-COPD overlap syndrome Cocaine abuse COPD (chronic obstructive pulmonary disease) Epilepsy Fibromyalgia History of suicide attempt HTN (hypertension) Sleep apnea Tracheomalacia Surgical History History of cholecystectomy Previous section Social History Social History Household Members: Spouse, Family and Children Housing: House Alcohol intake: never Smoking Status: Former smoker Tobacco Type: Cigarette Substance Use Type: Marijuana Advance Directives: No Advance Directives Information Provided: No service: No Physical Exam Vital Signs: Vital Signs: Last Vital Signs Temp 98.8 F 10/08/20 14:21 Pulse 90 10/08/20 16:56 Resp 20 10/08/20 16:56 BP 136/77 10/08/20 16:56 Pulse Ox 95 10/08/20 16:56 Body Mass Index 28.0 Const: General: cooperative Nutritional Appearance: overweight Orientation/consciousness: oriented to person and oriented to place Limitations: no limitations HENMT: Head: Yes normal to inspection, Yes normocephalic and Yes atraumatic Ears: external ears normal General nose exam: Normal external nose present Face and sinus: Yes normal facial exam Mouth: Normal oral and palatal mucosa present Throat: Yes posterior oropharynx normal Eyes: Periorbital: periorbital findings normal Eyelids: Yes eyelids normal Conjunctivae: conjunctivae normal Sclerae: sclerae normal Corneas: corneas normal Pupils: Equal, round and reactive pupils present Direct Ophthalmoscopy: normal light reflex Neck: Neck: Yes full ROM, Yes no lymphadenopathy, Yes no meningeal signs, Yes trachea midline and Yes supple Chest: Chest palpation & inspection: normal inspection of the chest and normal palpation of entire chest wall Resp: Effort & Inspection: able to speak in complete sentences, audible wheezes and Actively coughing Quality: dry Auscultation: rales bilateral in the mid lung romero, rhonchi and wheezes Cardio: Rate: tachycardic Rhythm: regular rhythm Heart sounds: S1 normal heart sound present, S2 normal heart sound present and no murmurs GI: Inspection: Yes normal to inspection Palpation (GI): Soft to palpation, nontender, no guarding, not rigid and No hepatosplenomegaly present : General: Yes no CVA tenderness Back/Spine/Pelvis: Back: no CVA tenderness Cervical Spine: normal cervical lordosis Thoracic/Lumbar Spine: thoracic and lumbar spine normal to inspection Skin: Lesions: no lesions Rashes: no rashes Wounds: no wounds Neuro: General: oriented to person, oriented to place and no meningeal signs Cranial nerves: Yes CN's II-XII intact bilaterally and Yes Equal, round and reactive pupils present Cognition (Neuro): normal cognition Speech: Abnormal speech present Motor exam (neuro): 5/5 motor strength present throughout Extrem: General: Yes normal to inspection and Yes full ROM Psych: Appearance: well kempt Mental Status: mental status grossly normal Speech and movement: Normal speech and movement present Affect: normal affect Attitude: cooperative Thought process: Normal thought process present Thought content: Normal thought content present Course Course Course Narrative: 49-year-old female with history of asthma who was seen in the emergency department 3 days prior and diagnosed with left lower lobe pneumonia and asthma exacerbation who was been taking prednisone 60 mg once a day and doxycycline twice a day with no improvement of her symptoms. On physical examination she was afebrile with a temperature 98.8?, tachycardic with pulse of 100, tachypneic with a respiratory rate of 20 and a normal O2 saturation of 95% on room air. The patient's lung exam revealed diffuse wheezing, rhonchi and rales at the bases. I ordered a laboratory workup and chest x-ray on this patient. She was also ordered to get an EKG. The patient was ordered to get albuterol nebulizer followed by a DuoNeb nebulizer. She was also ordered to get Solu-Medrol 125 mg IV. 1622: The x-ray is concerning for subtle right lower lobe infiltrate. Laboratory evaluation revealed an elevated glucose of greater than 400, the patient is not a diabetic but she has been on steroids for her asthma exacerbation, therefore suspect that we have unmasked diabetes in this patient. The patient does have a markedly elevated lactic acid of 6.0 and I suspect this is probably secondary to her diabetes and not sepsis. I did order a 30 milliliters/kilogram fluid bolus on the patient. Patient was also ordered to get ceftriaxone 1 g IV and azithromycin 500 mg IV. I will repeat a point of care glucose on this patient and if her glucose is still elevated then I will treat her with regular insulin IV. I will present the patient to the hospitalist for admission for asthma exacerbation and new onset diabetes. 1700: The patient's repeat point of care glucose was 303. The patient was ordered regular insulin 10 units IV. I did discuss the patient with the covering hospitalist the patient will be admitted for further treatment. MDM - Asthma Lab Data Result diagrams: 10/08/20 14:55 10/08/20 14:55 Labs: Lab Results 10/08/20 10/08/20 10/08/20 Range/Units 14:54 14:55 14:55 WBC 11.6 H (4.8-10.8) X10*3/uL RBC 4.24 (4.20-5.50) X10*6/uL Hgb 14.1 (12.0-16.0) g/dl Hct 41.8 (37-47) % MCV 98.6 H (80-98) fL MCH 33.3 H (27.0-33.0) pg MCHC 33.7 (31.0-35.0) g/dl RDW 12.8 (11.0-16.0) % Plt Count 333 (160-400) X10*3/uL MPV 9.7 (9.4-12.3) fL Immature Gran % (Auto) 1.0 H (0.0-0.4) % Neut % (Auto) 91.6 H (45-73) % Lymph % (Auto) 5.5 L (20-40) % Churchill % (Auto) 1.6 L (2-11) % Eos % (Auto) 0.0 (0-4) % Baso % (Auto) 0.3 (0-2) % Lymph # (Auto) 0.6 L (1.2-4.9) X10*3/uL Churchill # (Auto) 0.2 (0.1-1.2) X10*3/uL Eos # (Auto) 0.0 (0.0-0.4) X10*3/uL Baso # (Auto) 0.0 (0.0-0.2) X10*3/uL Abs Immat Gran (auto) 0.12 H (0.00-0.03) X10*3/uL Absolute Neuts (auto) 10.6 H (2.0-8.3) X10*3/uL Absolute Nucleated RBC 0.000 (0.0-0.012) X10*3/uL Nucleated RBC % (auto) 0.0 (0.0-0.2) /100WBC Smear Tech's Comments VERIFIED Sodium 137 (135-145) mmol/L Potassium 4.6 (3.3-5.1) mmol/l Chloride 104 (96-108) mmol/L Carbon Dioxide 20 L (22-29) mmol/L Anion Gap 18 (12-20) BUN 15 (9-16) mg/dL Creatinine 1.08 (0.5-1.4) mg/dL Estim Creat Clear Calc 69.0 Estimated GFR 54 POC Glucose (60-115) mg/dL Random Glucose 412 H* (60-115) mg/dL Estimat Average Glucose mg/dL Hemoglobin A1c % % Lactic Acid 6.0 H* (0.5-2.0) mmol/L Calcium 9.1 (8.4-10.2) mg/dL Total Bilirubin 0.2 (0.0-1.0) mg/dL AST 23 (5-31) U/L ALT 52 H (0-31) U/L Alkaline Phosphatase 93 D (39-117) U/L Total Protein 7.2 D (6.5-8.0) g/dL Albumin 4.5 D (3.5-5.0) g/dL Lipase 5 L (8-78) U/L 10/08/20 10/08/20 Range/Units 15:40 16:23 WBC (4.8-10.8) X10*3/uL RBC (4.20-5.50) X10*6/uL Hgb (12.0-16.0) g/dl Hct (37-47) % MCV (80-98) fL MCH (27.0-33.0) pg MCHC (31.0-35.0) g/dl RDW (11.0-16.0) % Plt Count (160-400) X10*3/uL MPV (9.4-12.3) fL Immature Gran % (Auto) (0.0-0.4) % Neut % (Auto) (45-73) % Lymph % (Auto) (20-40) % Churchill % (Auto) (2-11) % Eos % (Auto) (0-4) % Baso % (Auto) (0-2) % Lymph # (Auto) (1.2-4.9) X10*3/uL Churchill # (Auto) (0.1-1.2) X10*3/uL Eos # (Auto) (0.0-0.4) X10*3/uL Baso # (Auto) (0.0-0.2) X10*3/uL Abs Immat Gran (auto) (0.00-0.03) X10*3/uL Absolute Neuts (auto) (2.0-8.3) X10*3/uL Absolute Nucleated RBC (0.0-0.012) X10*3/uL Nucleated RBC % (auto) (0.0-0.2) /100WBC Smear Tech's Comments Sodium (135-145) mmol/L Potassium (3.3-5.1) mmol/l Chloride (96-108) mmol/L Carbon Dioxide (22-29) mmol/L Anion Gap (12-20) BUN (9-16) mg/dL Creatinine (0.5-1.4) mg/dL Estim Creat Clear Calc Estimated GFR POC Glucose 303 H (60-115) mg/dL Random Glucose (60-115) mg/dL Estimat Average Glucose 140 mg/dL Hemoglobin A1c % 6.5 % Lactic Acid (0.5-2.0) mmol/L Calcium (8.4-10.2) mg/dL Total Bilirubin (0.0-1.0) mg/dL AST (5-31) U/L ALT (0-31) U/L Alkaline Phosphatase (39-117) U/L Total Protein (6.5-8.0) g/dL Albumin (3.5-5.0) g/dL Lipase (8-78) U/L Discharge Plan Discharge Clinical Impression: Acute asthma exacerbation, Acute pneumonia, Diabetes mellitus, new onset Prescriptions: No Action doxycycline monohydrate 100 mg capsule 100 mg PO BID 10 Days Qty: 20 RF: 0 prednisone 20 mg tablet 60 mg PO DAILY 5 Days Qty: 15 RF: 0 ipratropium-albuterol 0.5 mg-3 mg(2.5 mg base)/3 mL solution for nebulization 3 ml inhalation Q6-8H PRN (Reason: shortness of breath or wheezing) Qty: 180 RF: 0 hydrocodone-homatropine [Hycodan (with homatropine)] 5-1.5 mg/5 mL syrup 5 ml PO Q6H PRN (Reason: cough) Qty: 473 RF: 0 albuterol sulfate 90 mcg/actuation HFA aerosol inhaler 1 inh inhalation QID PRN (Reason: shortness of breath or wheezing) Qty: 8.5 RF: 0 hydrochlorothiazide 25 mg Tablet 25 mg PO DAILY RF: 0 ipratropium-albuterol 0.5 mg-3 mg(2.5 mg base)/3 mL solution for nebulization 3 ml inhalation Q4-6H PRN (Reason: Shortness Of Breath Or Wheezing) RF: 0 albuterol sulfate 2.5 mg /3 mL (0.083 %) solution for nebulization 3 ml inhalation Q4-6H PRN (Reason: Shortness Of Breath Or Wheezing) RF: 0 dextroamphetamine-amphetamine 20 mg tablet 1 tab PO BID RF: 0 albuterol sulfate 90 mcg/actuation HFA aerosol inhaler 1 puff PO Q4H PRN (Reason: wheezing) RF: 0 Mucinex DM 30-600 mg Tablet Extended Release 12 Hr 2 tab PO BID Qty: 12 RF: 0 folic acid 1 mg tablet 1 mg PO DAILY RF: 0 loratadine 10 mg tablet 10 mg PO BEDTIME RF: 0 nystatin 100,000 unit/mL suspension 5 ml PO QID RF: 0 lorazepam 0.5 mg tablet 0.5 mg PO TID PRN (Reason: anxiety) 30 Days Qty: 30 RF: 1 montelukast [Singulair] 10 mg tablet 10 mg PO DAILY 30 Days Qty: 30 RF: 3 fluticasone propion-salmeterol [AirDuo RespiClick] 232-14 mcg/actuation aerosol powdr breath activated 1 inh inhalation BID 30 Days Qty: 1 RF: 3 prednisone 5 mg tablet 5 mg PO DAILY RF: 0
[2020-10-08 15:12] LABS: Basophils Percent Auto 0.3 % (0-2); Hematocrit 41.8 % (37-47); Hemoglobin 14.1 g/dl (12.0-16.0); Imm Gran Abs Auto 0.12 X10*3/uL (0.00-0.03); Lymphocytes Absolute Auto 0.6 X10*3/uL (1.2-4.9); Lymphocytes Percent Auto 5.5 % (20-40); MANUAL DIFF FLAG SCAN; Mean Corpuscular HGB Conc 33.7 g/dl (31.0-35.0); Mean Corpuscular Hemoglobin 33.3 pg (27.0-33.0); Mean Corpuscular Volume 98.6 fL (80-98); Mean Platelet Volume 9.7 fL (9.4-12.3); Monocytes Absolute Auto 0.2 X10*3/uL (0.1-1.2); Monocytes Percent Auto 1.6 % (2-11); Neutrophils Absolute Auto 10.6 X10*3/uL (2.0-8.3); Neutrophils Percent Auto 91.6 % (45-73); Platelet Count 333 X10*3/uL (160-400); Red Blood Count 4.24 X10*6/uL (4.20-5.50); Red Cell Distribution Width 12.8 % (11.0-16.0); SCAN SMEAR FLAG 1; White Blood Count 11.6 X10*3/uL (4.8-10.8)
--- NOTE | 2020-10-08 15:25 | PC.NURSE ---
IV EST 20 G R AC. ALL LABS DRAWN. EKG AND CXR DONE. PT IN NAD, AWAITING RT FOR UD
[2020-10-08] MEDS: LORazepam 1 MG TABLET PO (15:35)
[2020-10-08 15:37] LABS: SLIDE REVIEW VERIFIED
[2020-10-08] MEDS: Albuterol/Iprat 2.5/0.5MG 3 ML AMPUL.NEB INHALE ×2 (15:38→21:12)
[2020-10-08] MEDS: Albuterol Sulfate (0.083%) 2.5 MG/3 ML VIAL.NEB INHALE (15:38)
[2020-10-08 15:39] VITALS: PULSE 100; O2SAT 95
[2020-10-08 15:48] LABS: Alanine Aminotransferase 52 U/L (0-31); Albumin Level 4.5 g/dL (3.5-5.0); Alkaline Phosphatase 93 U/L (39-117); Anion Gap 18 (12-20); Aspartate Amino Transferase 23 U/L (5-31); Bilirubin Total 0.2 mg/dL (0.0-1.0); Blood Urea Nitrogen 15 mg/dL (9-16); Calcium 9.1 mg/dL (8.4-10.2); Carbon Dioxide 20 mmol/L (22-29); Chloride 104 mmol/L (96-108); Estimated Glomerular Filt Rate 54; Glucose Random 412 mg/dL (60-115); Lipase 5 U/L (8-78); Potassium 4.6 mmol/l (3.3-5.1); Sodium 137 mmol/L (135-145); Total Protein 7.2 g/dL (6.5-8.0)
[2020-10-08 16:34] LABS: Glucose, Whole Blood 303 mg/dL (60-115)
[2020-10-08] MEDS: cefTRIAXone sodium 1 GM in 0.9 % Sodium Chloride 50 ML IV (16:46)
[2020-10-08] MEDS: Insulin Regular, Human 100 UNIT/ML 3 ML VIAL 10 UNIT IVPUSH (16:52)
[2020-10-08 16:56] VITALS: BP 136/77; PULSE 90; RESP 20; O2SAT 95
[2020-10-08 16:57] LABS: Estimated Average Glucose 140 mg/dL; Hemoglobin A1c % 6.5 %
[2020-10-08 17:08] LABS: Reflex Lactate? Lactic Acid Added
--- NOTE | 2020-10-08 17:16 | PM.EVENT ---
Event Note Date of Service: 10/09/20 Event Note: Patient is seen and examined Came with shortness of breath few days back to ED and that time was thought to have question of pneumonia and given antibiotic doxycycline and sent home patient says that her shortness of breath did not improve so decided to come back. She denies any other symptoms except shortness of breath and some cough and occasional yesterday only had green sputum otherwise denies any nausea vomiting diarrhea or abdominal pain Labs alfredo elevated WBC 11.6 probably related to steroids Chest x-ray questionable pneumonia Has lactic acidosis of 6 probably related to nebs and hyperglycemia. COVID is still pending Physical exam: Cvs: rrr, [id number] , no murmur res: Diminished breath sound,b/l rhonchii abd: no rebound or guarding ,nt, bs present. ext pulses present , no cyanosis neuro: axo3 , nonfocal. Assessment and plan coordinated in APC note 1. COPD exacerbation/pneumonia: Less likely sepsis, leukocytosis probably related to steroids Continue nebs, steroids, current antibiotics. Lactic acidosis probably related to-nebs and hyperglycemia.please recheck if clinically worsen A shortness of breath is improving after she received nebs and steroids in the ED So far talking in full sentences and on room air sats 90% 2. Diabetes? Probably new Hyperglycemia probably related to chronic steroids with new diabetes Fingersticks with coverage
[2020-10-08 17:25] LABS: COVID-19 Test Negative (Negative); IDNOW Serial# 9DD0AD1C
[2020-10-08] MEDS: Azithromycin 500 MG in 0.9 % Sodium Chloride 250 ML 125 MG IV (17:32)
--- NOTE | 2020-10-08 17:35 | PM.IMHP ---
History of Present Illness Date of Service: 10/08/20 Chief Complaint: shrortness of breath This is a 49-year-old female with history of asthma/COPD and frequent admissions for the same who presents to the emergency department with shortness of breath. She was evaluated on October 06 and discharged home with prednisone and doxycycline. She returns today with ongoing shortness of breath. She reports associated cough and chest congestion but denies any fever or chills. She has been using her inhaler and nebulizer machine every few hours. She denies any recent sick contacts. Today in the emergency department her chest x-ray showed subtle possibility of pneumonia. Her white count was 11.6. Lactic acid was elevated at 6.0. COVID swab was negative she was also noted to be hyperglycemic with a glucose of 412. She was given a dose of IV Solu-Medrol, IV antibiotics, breathing treatments, IV fluid and a decision was made to admit her for further management. Review of Systems Review of Systems: Yes all other systems are reviewed and are negative Constitutional: Constitutional: Denies chills and Denies fever(s) Cardiovascular: Cardiovascular: Denies chest pain and Reports dyspnea Respiratory: Respiratory: Reports cough and Reports dyspnea Gastrointestinal: Gastrointestinal: Denies abdominal pain COUNT INCLUDES THE [facility] Medical History (Updated 10/08/20 @ 17:44 by DANA Garcia) ADHD Alcohol abuse Anxiety Asthma Asthma-COPD overlap syndrome Cocaine abuse COPD (chronic obstructive pulmonary disease) Epilepsy Fibromyalgia History of suicide attempt HTN (hypertension) Sleep apnea Tracheomalacia Functional capacity: independent ambulation Surgical History History of cholecystectomy Previous section Social History (Updated 10/08/20 @ 17:44 by DANA Garcia) Household Members: Spouse, Family and Children Housing: House Alcohol intake: current Alcohol type: hard liquor Smoking Status: Former smoker Tobacco Type: Cigarette Substance Use Type: Marijuana Advance Directives: No Advance Directives Information Provided: No service: No Meds Allergies Allergy/AdvReac Type Severity Reaction Status Date / Time hydromorphone [From DILAUDID] Allergy Severe SEIZURES Verified 09/05/20 19:04 oxycodone [OXYCODONE] Allergy Severe SEIZURES Verified 09/05/20 19:04 gabapentin [GABAPENTIN] Allergy Intermediate MUSCLE ACHE Verified 09/05/20 19:04 bupropion [From WELLBUTRIN] Allergy Unknown SEIZURES Verified 09/05/20 19:04 phenytoin [Dilantin] Allergy Unknown Unknown Verified 09/05/20 19:04 Home Medications Medication Instructions Recorded Confirmed Type hydrochlorothiazide 25 mg PO DAILY 06/20/20 10/08/20 History dextroamphetamine-amphetamine 20 mg PO BID 07/26/20 10/08/20 History fluticasone propion-salmeterol 1 inh INHALATION BID 10/08/20 10/08/20 History ipratropium-albuterol [DuoNeb] 3 ml INHALATION Q6H PRN 10/08/20 10/08/20 History montelukast [Singulair] 10 mg PO BEDTIME 10/08/20 10/08/20 History Physical Exam Vital Signs and Narrative: Vital Signs: Last Vital Signs Temp 98.8 F 10/08/20 14:21 Pulse 90 10/08/20 16:56 Resp 20 10/08/20 16:56 BP 136/77 10/08/20 16:56 Pulse Ox 95 10/08/20 16:56 Body Mass Index 28.0 Const: Nutritional Appearance: well nourished Orientation/consciousness: patient oriented x3 HENMT: Head: Yes normocephalic and Yes atraumatic Eyes: Sclerae: sclerae normal Chest: Chest palpation & inspection: normal inspection of the chest Resp: Effort & Inspection: normal respiratory effort and no respiratory distress Cardio: Rate: regular rate Rhythm: regular rhythm GI: Palpation (GI): Soft to palpation and nontender Skin: General skin exam: no rashes or lesions noted Neuro: General: patient oriented x3 Cranial nerves: Yes CN's II-XII intact bilaterally and Yes Bilaterally intact EOM present Extrem: General: Yes normal to inspection Results Labs CBC and Chem 7: 10/08/20 14:55 10/08/20 14:55 Labs: Laboratory Results - last 24 hr 10/08/20 10/08/20 10/08/20 14:50 14:54 14:55 MCV 98.6 H MCH 33.3 H MCHC 33.7 RDW 12.8 Plt Count 333 MPV 9.7 Immature Gran % (Auto) 1.0 H Neut % (Auto) 91.6 H Lymph % (Auto) 5.5 L Cannon % (Auto) 1.6 L Eos % (Auto) 0.0 Baso % (Auto) 0.3 Lymph # (Auto) 0.6 L Cannon # (Auto) 0.2 Eos # (Auto) 0.0 Baso # (Auto) 0.0 Abs Immat Gran (auto) 0.12 H Absolute Neuts (auto) 10.6 H Absolute Nucleated RBC 0.000 Nucleated RBC % (auto) 0.0 Smear Tech's Comments VERIFIED Anion Gap Estim Creat Clear Calc Estimated GFR POC Glucose Random Glucose Estimat Average Glucose Hemoglobin A1c % Lactic Acid 6.0 H* Calcium Total Bilirubin AST ALT Alkaline Phosphatase Total Protein Albumin Lipase COVID-19 ([facility]) Negative COVID-19 Clin Com See Note 10/08/20 10/08/20 10/08/20 14:55 15:40 16:23 MCV MCH MCHC RDW Plt Count MPV Immature Gran % (Auto) Neut % (Auto) Lymph % (Auto) Cannon % (Auto) Eos % (Auto) Baso % (Auto) Lymph # (Auto) Cannon # (Auto) Eos # (Auto) Baso # (Auto) Abs Immat Gran (auto) Absolute Neuts (auto) Absolute Nucleated RBC Nucleated RBC % (auto) Smear Tech's Comments Anion Gap 18 Estim Creat Clear Calc 69.0 Estimated GFR 54 POC Glucose 303 H Random Glucose 412 H* Estimat Average Glucose 140 Hemoglobin A1c % 6.5 Lactic Acid Calcium 9.1 Total Bilirubin 0.2 AST 23 ALT 52 H Alkaline Phosphatase 93 D Total Protein 7.2 D Albumin 4.5 D Lipase 5 L COVID-19 ([facility]) COVID-19 Clin Com Imaging Radiologist's Impressions: Impressions Chest X-Ray 10/08/20 14:36 IMPRESSION: 1. Bibasilar linear subsegmental atelectasis. 2. Blunting right lateral costophrenic angle versus small groundglass opacity. Assessment and Plan (1) Acute asthma exacerbation: Qualifiers: Asthma persistence: persistent Asthma severity: moderate Qualified Code(s): J45.41 - Moderate persistent asthma with (acute) exacerbation Status: Acute (2) Acute pneumonia: Status: Acute This is a 49-year-old female with history of asthma/COPD, tracheal malacia, ADHD, fibromyalgia, substance abuse who presents to the emergency room with shortness of breath Acute asthma/COPD exacerbation IV Solu-Medrol Breathing treatments Not currently requiring supplemental oxygen Community-acquired pneumonia, likely gram +or gram - IV ceftriaxone, azithromycin No sepsis Lactic acidosis Secondary to numerous breathing treatments no evidence of sepsis Hyperglycemia Check hemoglobin A1c Likely secondary to chronic steroid use -SSI, POCs Hypertension Continue hydrochlorothiazide ADHD Continue Adderall Anxiety Continue Ativan DVT prophylaxis-Lovenox This case was discussed with Dr. Ashraf
[2020-10-08 17:48] LABS: Glucose, Whole Blood 268 mg/dL (60-115)
[2020-10-08 18:22] LABS: Amphetamine Screen Urine Not Detected (Not Detect); Barbiturates, Urine Not Detected (Not Detect); Benzodiazepines Screen Urine Not Detected (Not Detect); Cannabinoid Screen Urine Not Detected (Not Detect); Cocaine Screen Urine Not Detected (Not Detect); Opiate Screen Urine Not Detected (Not Detect); Phencyclidine Screen Urine Not Detected (Not Detect)
[2020-10-08 18:32] LABS: ~Lactic Acid-LAB USE ONLY 4.1 mmol/L (0.5-2.0)
[2020-10-08 20:02] LABS: Reflex Lactate? 2 Y
[2020-10-08 20:22] VITALS: BP 152/80; PULSE 95; RESP 22; TEMP 36.9; O2SAT 95
[2020-10-08 20:29] VITALS: BP 130/80; PULSE 92; RESP 18; TEMP 37.2; O2SAT 95
[2020-10-08 20:36] LABS: Glucose, Whole Blood 362 mg/dL (60-115)
[2020-10-08 21:03] LABS: ~Lactic Acid-LAB USE ONLY 6.2 mmol/L (0.5-2.0)
[2020-10-08 21:13] VITALS: PULSE 104; O2SAT 95
[2020-10-08] MEDS: LORazepam 0.5 MG TABLET PO (23:36)
[2020-10-08] MEDS: Amphetamine Mixed Salts 20 MG TABLET PO (23:36)
[2020-10-08] MEDS: Insulin Lispro 100 UNIT/ML 3 ML VIAL SUBCUT (23:37)
[2020-10-08] MEDS: Montelukast Sodium 10 MG TABLET PO (23:37)
[2020-10-08] MEDS: Enoxaparin Sodium 40 MG/0.4 ML SYRINGE SUBCUT (23:37)
[2020-10-08] MEDS: 0.9 % Sodium Chloride Flush 3 ML SYRINGE IVFLUSH (23:55)
[2020-10-09] VITALS (11 sets, daily range): BP systolic 133–160; BP diastolic 72–96; PULSE 86–110; RESP 17–20; TEMP 35.8–36.5; O2SAT 92–96
[2020-10-09 00:52] LABS: Glucose, Whole Blood 256 mg/dL (60-115)
[2020-10-09 06:30] LABS: MANUAL DIFF FLAG NO
[2020-10-09 07:05] LABS: Basophils Percent Auto 0.1 % (0-2); Hematocrit 39.3 % (37-47); Imm Gran Abs Auto 0.14 X10*3/uL (0.00-0.03); Lymphocytes Percent Auto 6.5 % (20-40); Mean Corpuscular HGB Conc 33.1 g/dl (31.0-35.0); Mean Corpuscular Hemoglobin 32.6 pg (27.0-33.0); Mean Corpuscular Volume 98.5 fL (80-98); Mean Platelet Volume 10.1 fL (9.4-12.3); Monocytes Absolute Auto 0.5 X10*3/uL (0.1-1.2); Monocytes Percent Auto 3.3 % (2-11); Neutrophils Percent Auto 89.1 % (45-73); Platelet Count 322 X10*3/uL (160-400); Red Blood Count 3.99 X10*6/uL (4.20-5.50); Red Cell Distribution Width 12.5 % (11.0-16.0); White Blood Count 14.5 X10*3/uL (4.8-10.8)
[2020-10-09 07:25] LABS: Anion Gap 16 (12-20); Blood Urea Nitrogen 14 mg/dL (9-16); Carbon Dioxide 21 mmol/L (22-29); Chloride 105 mmol/L (96-108); Creatinine Clr Calc Pharmacy 102.2; Estimated Glomerular Filt Rate > 60; Glucose Random 212 mg/dL (60-115); Potassium 4.3 mmol/l (3.3-5.1); Sodium 138 mmol/L (135-145)
[2020-10-09] MEDS: 0.9 % Sodium Chloride Flush 3 ML SYRINGE IVFLUSH ×3 (07:56→22:28)
[2020-10-09] MEDS: Amphetamine Mixed Salts 20 MG TABLET PO ×2 (07:56→20:48)
[2020-10-09] MEDS: hydroCHLOROthiazide 25 MG TABLET PO (07:56)
[2020-10-09] MEDS: Insulin Lispro 100 UNIT/ML 3 ML VIAL SUBCUT ×4 (07:56→20:48)
[2020-10-09 08:18] LABS: Glucose, Whole Blood 273 mg/dL (60-115)
[2020-10-09] MEDS: Albuterol/Iprat 2.5/0.5MG 3 ML AMPUL.NEB INHALE ×4 (08:57→18:48)
--- NOTE | 2020-10-09 10:35 | HO.PM.IMPN ---
Subjective Subjective Date of Service: 10/09/20 Interval History: Admitted for asthma, PNA, new onset diabetes. Ongoing cough, chest congestion, reports some improvement in her shortness of breath. Review of Systems Review of Systems: Yes all other systems are reviewed and are negative Constitutional Constitutional: Denies chills and Denies fever(s) Cardiovascular Cardiovascular: Denies chest pain Respiratory Respiratory: Reports chest congestion and Reports cough Gastrointestinal Gastrointestinal: Denies abdominal pain Physical Exam Vital Signs: Vital Signs: Last Vital Signs Temp 96.9 F 10/09/20 08:00 Pulse 97 10/09/20 09:00 Resp 18 10/09/20 08:00 BP 147/94 H 10/09/20 08:00 Pulse Ox 94 10/09/20 08:00 Body Mass Index 28.0 Const: Nutritional Appearance: well nourished Orientation/consciousness: patient oriented x3 HENMT: Head: Yes normocephalic and Yes atraumatic Eyes: Sclerae: sclerae normal Chest: Chest palpation & inspection: normal inspection of the chest Resp: Effort & Inspection: normal respiratory effort, able to speak in complete sentences and no respiratory distress Auscultation: wheezes throughout Cardio: Rate: regular rate Rhythm: regular rhythm GI: Palpation (GI): Soft to palpation and nontender Skin: General skin exam: no rashes or lesions noted Neuro: General: patient oriented x3 Cranial nerves: Yes CN's II-XII intact bilaterally and Yes Bilaterally intact EOM present Extrem: General: Yes normal to inspection Objective Data Current Medications Generic Name Dose Route Start Last Admin Trade Name Freq PRN Reason Stop Dose Admin Acetaminophen 650 mg 10/08/20 20:29 Acetaminophen 325 Mg Tablet PO Q6H PRN Pain, Mild (Pain Scale 1-3) Albuterol/Ipratropium 3 ml 10/08/20 20:29 10/09/20 08:57 Albuterol/Iprat 2.5/0.5mg 3 Ml Ampul.Neb INHALE 3 ml RQ4H WHILE AWAKE BEATRIZ Administration Amphetamine/Dextroamphetamine 20 mg 10/08/20 21:00 10/09/20 07:56 Amphetamine Mixed Salts 20 Mg Tablet PO 20 mg BID BEATRIZ Administration Azithromycin 500 mg 10/09/20 17:00 Azithromycin 500 Mg Tablet PO Q24H BEATRIZ Docusate Sodium 100 mg 10/08/20 20:29 Docusate Sodium 100 Mg Capsule PO DAILY PRN Constipation Enoxaparin Sodium 40 mg 10/08/20 22:00 10/08/20 23:37 Enoxaparin Sodium 40 Mg/0.4 Ml Syringe SUBCUT 40 mg Q24H BEATRIZ Administration Guaifenesin/Dextromethorphan 1 tab 10/09/20 09:36 Guaifenesin Dm 600/30 1 Tab Tab.Er.12h PO BID PRN Cough Hydrochlorothiazide 25 mg 10/09/20 09:00 10/09/20 07:56 Hydrochlorothiazide 25 Mg Tablet PO 25 mg DAILY BETARIZ Administration Protocol Ceftriaxone Sodium 1 gm/ 50 mls @ 100 mls/hr 10/09/20 16:00 Sodium Chloride IV Q24H BEATRIZ Insulin Human Lispro 0 unit 10/08/20 21:00 10/09/20 07:56 Insulin Lispro 100 Unit/Ml 3 Ml Vial SUBCUT 4 unit QIDACHS [facility] Administration Protocol Lorazepam 0.5 mg 10/08/20 20:29 10/08/20 23:36 Lorazepam 0.5 Mg Tablet PO 0.5 mg TID PRN Administration anxiety Methylprednisolone Sodium Succinate 40 mg 10/09/20 04:00 10/09/20 03:37 Methylprednisolone Sod Succ/Pf 40 Mg/Ml Vial IVPUSH 40 mg Q12H BEATRIZ Administration Montelukast Sodium 10 mg 10/08/20 21:00 10/08/20 23:37 Montelukast Sodium 10 Mg Tablet PO 10 mg BEDTIME BEATRIZ Administration Ondansetron HCl 4 mg 10/08/20 20:29 Ondansetron Hcl 4 Mg/2 Ml Vial IVPUSH Q8H PRN Nausea and Vomiting Pharmacy Consult 1 each 10/08/20 16:51 Consult Rx Perform Med Rec MISCELLANE ONCE PRN Consult order Sodium Chloride 3 ml 10/09/20 00:00 10/09/20 07:56 0.9 % Sodium Chloride Flush 3 Ml Syringe IVFLUSH 3 ml QSHIFT [facility] Administration Labs CBC & Chem 7: 10/09/20 06:03 10/09/20 06:03 Assessment and Plan (1) Acute asthma exacerbation: Status: Acute (2) Acute pneumonia: Status: Acute (3) Diabetes mellitus, new onset: Status: Acute Assessment and Plan: This is a 49-year-old female with history of asthma/COPD, tracheal malacia, ADHD, fibromyalgia, substance abuse who presents to the emergency room with shortness of breath Acute asthma/COPD exacerbation. Improving. Still has chest congestion. -Will add mucinex -Continue IV Solu-Medrol -Continue breathing treatments Community-acquired pneumonia, likely gram +or gram - -Continue IV ceftriaxone, azithromycin No evidence of sepsis Lactic acidosis Secondary to numerous breathing treatments no evidence of sepsis Hyperglycemia In the setting of chronic steroid use HbA1c 6.5. -Continue sliding scale today -consider PO meds (?glipizide due to elevated LA) in am if continues to be elevated. alcohol abuse Requested care team eval due to replasing with etoh no evidence of withdrawal Hypertension Continue hydrochlorothiazide ADHD Continue Adderall Anxiety Continue Ativan DVT prophylaxis-Lovenox This case was discussed with Dr. Sellers
[2020-10-09 12:08] LABS: Glucose, Whole Blood 239 mg/dL (60-115)
--- NOTE | 2020-10-09 12:08 | MHC.RECOVRN ---
Recovery Support Note: 49 year old female presented to [facility] [place] [place] ED as a walk in on 10/08/20 due to shortness of breath, cough, chest pain. Pt was admitted to [facility] for asthma, pneumonia, new onset diabetes. T/w, along with [facility], met with patient in [id number] to discuss substance use. Pt very motivated to obtain recovery, states I hate drinking. I don't want to do this anymore. Pt is interested in naltrexone. T/w educated pt regarding options for medications for alcohol use disorder. Pt would like to pursue naltrexone. [facility] discussed IOP and AA with pt, pt would like to become involved with both. Substance: Alcohol. Reports last use of crack and crystal meth in 2005. Age of first use: 13 Current use: 3-5 100 proof nips per day. reduced from 16 nips/day over the past 2 months. Pt has been drinking consistently since 2016. Pt states I buy 5 at a time. Denies current withdrawal symptoms. Previous time in recovery: [id number]. short return to use in 2011. [id number]. Pt remained in recovery due to also in recovery and staying busy. Social: Pt is curently unemployed. Lives in duplex with and son. has been in recovery x 5 years. Other son and girlfriend live in upper part of duplex. Daughter lives in [place]. Plan: Per interdisciplinary rounds, pt is not discharging today. Pt provided with resources and Recovery Support RN and Coordinator's cards. Therapy begins 10/14/20 with [facility]. Discussed with Anaid Parsons NP. Referred for addiction med consult. Follow up with [facility] for IOP as well as AA.
[2020-10-09] MEDS: LORazepam 0.5 MG TABLET PO (12:34)
--- NOTE | 2020-10-09 15:28 | MHC.CM.PN ---
EMR REVIEWED, PT TO DISCHARGE HOME VS HOME W/VNA FOR NEW ONSET OF DIABETES, AWAITING VERIFICATION OF PCP, FAMILY TO TRANSPORT, CM MET WITH PT THIS MORNING WHO IS ALERT AND ORIENTED AND REPORTS SHE IS INDEPENDENT WITH ALL CARE AT HOME, PT REPORTS THE ONLY DME SHE USES IS HER NEBULIZER, PT DOES REPORT SHE HAS BEEN DRINKING ALCOHOL DAILY AND IS DRINKING 3-4 NIPS STARTING AT 8AM, PT HIDING THIS FROM FAMILY AND REPORTS ALTHOUGH SHE WAS DRINKING A LOT MORE THIS PAST FALL AND HAS CUT DOWN SHE STILL WANTS HELP, PT REPORTS HX OF LONG PERIODS OF SOBRIETY AND WAS ASKING ABOUT ANTABUSE WHICH PT'S DID WELL ON, CM DISCUSSED OTHER MEDICATION OPTIONS WELL AND REQUESTED A CARE TEAM REFERRAL FOR PT, CARE TEAM SAW PT TODAY AND WILL REFER HER TO KAREN MCKENNA FOR MED ASSISTED TREATMENT. PT ALSO REPORTS HX OF 2 SUICIDE ATTEMPTS IN JUNE AND AUGUST OF THIS YEAR AND REPORTS SHE WAS INPT IN AUGUST, CM DISCUSSED A NEED FOR PT TO SEE SOMEONE INPSYCH HOWEVER PT DECLINES TO AT THIS TIME AND REPORTS SHE STARTS THERAPY WITH [facility] ON 10/14/20 AND FEELS THAT IS SUFFICIENT, PT REPORTS FEELING SAFE AND DENIES CURRENT SUICIDAL IDEATION. PT REPORTS GETTING HELP WITH HER DRINKING IS THE MOST IMPORTANT THING RIGHT NOW AND DEALING WITH HER NEW DIAGNOSIS OF DIABETES. PT MOTIVATED AND HOPEFUL FOR TREATMENT. HCP: SAAD SARABIA () [phone], COPY REQUESTED BY [facility]. PCP: JANET FLAHERTY STARTING 10/28/20
--- NOTE | 2020-10-09 16:02 | MHC.CM.PN ---
PT MAY NOT HAVE A PCP TO COVER VNA SERVICES, JULIO CESARNA WORKING ON VERIFICATION, COVERING PA NOTIFIED. PER PA PT DOES NOT QUALIFY DUE TO NOT BEING HOMEBOUND SO PT WILL BE DISCHARGING HOME SELF-CARE WITH FAMILY TO TRANSPORT.
[2020-10-09] MEDS: PHENobarbitaL sodium 130 MG/ML VIAL 197 MG IM (16:07)
[2020-10-09] MEDS: cefTRIAXone sodium 1 GM in 0.9 % Sodium Chloride 50 ML IV (16:11)
--- NOTE | 2020-10-09 16:16 | MHC.RECOVRN ---
T/w met with patient to follow up regarding naltrexone. Anaid Parsons NP met with patient and will be sending in script to patient's pharmacy. [facility] Oct 15 at 2:45 PM to continue services. Pts CM aware.
[2020-10-09 16:23] LABS: Glucose, Whole Blood 275 mg/dL (60-115)
[2020-10-09] MEDS: Azithromycin 500 MG TABLET PO (16:44)
--- NOTE | 2020-10-09 18:37 | HO.ADDICT_ITS ---
History of Present Illness Date of Service: 10/09/2020 Chief Complaint: copd/asthma; pna Reason for Consult: Alcohol use disorder--interested in MAT Requesting physician: Rory Sellers Discussed with referring provider: No Sources of Information: patient interviewed and chart reviewed HPI Narrative: Patient is a 49 year old female currently medically admitted with a sthma exacerbation and pneumonia. Consult requested as she reported daily alcohol use and was looking to stop. 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 Reports she has been in recovery from opioids and cocaine since 2011. She reports she has been drinking daily for the past 4-5 years. Up until about a month ago she was drinking up to 16 nips of root beer schnapps a day, then she slowly decreased to current daily of 5 nips per day. She reports her last drink was prior to admission on 10/08. She is reporting anxiety, restlessness and diaphoresis Treatment history reviewed, which includes numerous ATS admissions and previously treatment for OUD with buprenorphine She denies any previous treatment for AUD Medical Evaluation Reviewed: Yes Review of Systems Constitutional: Reports chills and Reports excessive sweating Psychiatric: Reports anxiety Endocrine: Reports excessive sweating Diagnostics Vital Signs (24Hr): Vital Signs - 24 hr 10/08/20 20:22 10/08/20 20:29 10/08/20 21:13 Temperature 98.4 F 99.0 F Pulse Rate 95 92 104 H Respiratory Rate 22 H 18 Blood Pressure 152/80 H 130/80 Pulse Oximetry 95 95 10/09/20 00:00 10/09/20 03:31 10/09/20 08:00 Temperature 96.8 F 97.7 F 96.9 F Pulse Rate 86 88 97 Respiratory Rate 18 18 18 Blood Pressure 155/86 H 133/77 147/94 H Pulse Oximetry 96 96 94 10/09/20 09:00 10/09/20 12:00 10/09/20 12:03 Temperature 97.4 F Pulse Rate 97 104 H 96 Respiratory Rate 17 Blood Pressure 141/88 H Pulse Oximetry 92 10/09/20 15:05 10/09/20 15:47 Temperature 97.7 F Pulse Rate 92 110 H Respiratory Rate 18 Blood Pressure 145/72 H Pulse Oximetry 94 Body Mass Index 28.0 Labs Results: 10/09/20 06:03 10/09/20 06:03 Labs: Laboratory Results - last 48 hr 10/08/20 10/08/20 10/08/20 14:50 14:54 14:55 WBC 11.6 H RBC 4.24 Hgb 14.1 Hct 41.8 MCV 98.6 H MCH 33.3 H MCHC 33.7 RDW 12.8 Plt Count 333 MPV 9.7 Immature Gran % (Auto) 1.0 H Neut % (Auto) 91.6 H Lymph % (Auto) 5.5 L Merrick % (Auto) 1.6 L Eos % (Auto) 0.0 Baso % (Auto) 0.3 Lymph # (Auto) 0.6 L Merrick # (Auto) 0.2 Eos # (Auto) 0.0 Baso # (Auto) 0.0 Abs Immat Gran (auto) 0.12 H Absolute Neuts (auto) 10.6 H Absolute Nucleated RBC 0.000 Nucleated RBC % (auto) 0.0 Smear Tech's Comments VERIFIED Sodium Potassium Chloride Carbon Dioxide Anion Gap BUN Creatinine Estim Creat Clear Calc Estimated GFR POC Glucose Random Glucose Estimat Average Glucose Hemoglobin A1c % Lactic Acid 6.0 H* Lactic Acid Fup @ 2Hr Lactic Acid Fup @ 4Hr Calcium Total Bilirubin AST ALT Alkaline Phosphatase Total Protein Albumin Lipase Urine Opiates Screen Ur Barbiturates Screen Ur Phencyclidine Scrn Ur Amphetamines Screen U Benzodiazepines Scrn Urine Cocaine Screen U Marijuana (THC) Screen COVID-19 ([facility]) Negative COVID-19 Clin Com See Note 10/08/20 10/08/20 10/08/20 14:55 15:40 16:23 WBC RBC Hgb Hct MCV MCH MCHC RDW Plt Count MPV Immature Gran % (Auto) Neut % (Auto) Lymph % (Auto) Merrick % (Auto) Eos % (Auto) Baso % (Auto) Lymph # (Auto) Merrick # (Auto) Eos # (Auto) Baso # (Auto) Abs Immat Gran (auto) Absolute Neuts (auto) Absolute Nucleated RBC Nucleated RBC % (auto) Smear Tech's Comments Sodium 137 Potassium 4.6 Chloride 104 Carbon Dioxide 20 L Anion Gap 18 BUN 15 Creatinine 1.08 Estim Creat Clear Calc 69.0 Estimated GFR 54 POC Glucose 303 H Random Glucose 412 H* Estimat Average Glucose 140 Hemoglobin A1c % 6.5 Lactic Acid Lactic Acid Fup @ 2Hr Lactic Acid Fup @ 4Hr Calcium 9.1 Total Bilirubin 0.2 AST 23 ALT 52 H Alkaline Phosphatase 93 D Total Protein 7.2 D Albumin 4.5 D Lipase 5 L Urine Opiates Screen Ur Barbiturates Screen Ur Phencyclidine Scrn Ur Amphetamines Screen U Benzodiazepines Scrn Urine Cocaine Screen U Marijuana (THC) Screen COVID-19 ([facility]) COVID-19 Clin Com 10/08/20 10/08/20 10/08/20 17:39 17:44 17:50 WBC RBC Hgb Hct MCV MCH MCHC RDW Plt Count MPV Immature Gran % (Auto) Neut % (Auto) Lymph % (Auto) Merrick % (Auto) Eos % (Auto) Baso % (Auto) Lymph # (Auto) Merrick # (Auto) Eos # (Auto) Baso # (Auto) Abs Immat Gran (auto) Absolute Neuts (auto) Absolute Nucleated RBC Nucleated RBC % (auto) Smear Tech's Comments Sodium Potassium Chloride Carbon Dioxide Anion Gap BUN Creatinine Estim Creat Clear Calc Estimated GFR POC Glucose 268 H Random Glucose Estimat Average Glucose Hemoglobin A1c % Lactic Acid Lactic Acid Fup @ 2Hr 4.1 H* Lactic Acid Fup @ 4Hr Calcium Total Bilirubin AST ALT Alkaline Phosphatase Total Protein Albumin Lipase Urine Opiates Screen Not Detected Ur Barbiturates Screen Not Detected Ur Phencyclidine Scrn Not Detected Ur Amphetamines Screen Not Detected U Benzodiazepines Scrn Not Detected Urine Cocaine Screen Not Detected U Marijuana (THC) Screen Not Detected COVID-19 ([facility]) COVID-19 Clin Com 10/08/20 10/08/20 10/09/20 20:27 20:31 00:48 WBC RBC Hgb Hct MCV MCH MCHC RDW Plt Count MPV Immature Gran % (Auto) Neut % (Auto) Lymph % (Auto) Merrick % (Auto) Eos % (Auto) Baso % (Auto) Lymph # (Auto) Merrick # (Auto) Eos # (Auto) Baso # (Auto) Abs Immat Gran (auto) Absolute Neuts (auto) Absolute Nucleated RBC Nucleated RBC % (auto) Smear Tech's Comments Sodium Potassium Chloride Carbon Dioxide Anion Gap BUN Creatinine Estim Creat Clear Calc Estimated GFR POC Glucose 362 H* 256 H Random Glucose Estimat Average Glucose Hemoglobin A1c % Lactic Acid Lactic Acid Fup @ 2Hr Lactic Acid Fup @ 4Hr 6.2 H* Calcium Total Bilirubin AST ALT Alkaline Phosphatase Total Protein Albumin Lipase Urine Opiates Screen Ur Barbiturates Screen Ur Phencyclidine Scrn Ur Amphetamines Screen U Benzodiazepines Scrn Urine Cocaine Screen U Marijuana (THC) Screen COVID-19 ([facility]) COVID-19 [employer] 10/09/20 10/09/20 10/09/20 06:03 06:03 08:11 WBC 14.5 H RBC 3.99 L Hgb 13.0 Hct 39.3 MCV 98.5 H MCH 32.6 MCHC 33.1 RDW 12.5 Plt Count 322 MPV 10.1 Immature Gran % (Auto) 1.0 H Neut % (Auto) 89.1 H Lymph % (Auto) 6.5 L Merrick % (Auto) 3.3 Eos % (Auto) 0.0 Baso % (Auto) 0.1 Lymph # (Auto) 1.0 L Merrick # (Auto) 0.5 Eos # (Auto) 0.0 Baso # (Auto) 0.0 Abs Immat Gran (auto) 0.14 H Absolute Neuts (auto) 13.0 H Absolute Nucleated RBC 0.000 Nucleated RBC % (auto) 0.0 Smear Tech's Comments Sodium 138 Potassium 4.3 Chloride 105 Carbon Dioxide 21 L Anion Gap 16 BUN 14 Creatinine 0.73 Estim Creat Clear Calc 102.2 Estimated GFR > 60 POC Glucose 273 H Random Glucose 212 H D Estimat Average Glucose Hemoglobin A1c % Lactic Acid Lactic Acid Fup @ 2Hr Lactic Acid Fup @ 4Hr Calcium 9.0 Total Bilirubin AST ALT Alkaline Phosphatase Total Protein Albumin Lipase Urine Opiates Screen Ur Barbiturates Screen Ur Phencyclidine Scrn Ur Amphetamines Screen U Benzodiazepines Scrn Urine Cocaine Screen U Marijuana (THC) Screen COVID-19 ([facility]) COVID-19 [employer] 10/09/20 10/09/20 12:02 16:10 WBC RBC Hgb Hct MCV MCH MCHC RDW Plt Count MPV Immature Gran % (Auto) Neut % (Auto) Lymph % (Auto) Merrick % (Auto) Eos % (Auto) Baso % (Auto) Lymph # (Auto) Merrick # (Auto) Eos # (Auto) Baso # (Auto) Abs Immat Gran (auto) Absolute Neuts (auto) Absolute Nucleated RBC Nucleated RBC % (auto) Smear Tech's Comments Sodium Potassium Chloride Carbon Dioxide Anion Gap BUN Creatinine Estim Creat Clear Calc Estimated GFR POC Glucose 239 H 275 H Random Glucose Estimat Average Glucose Hemoglobin A1c % Lactic Acid Lactic Acid Fup @ 2Hr Lactic Acid Fup @ 4Hr Calcium Total Bilirubin AST ALT Alkaline Phosphatase Total Protein Albumin Lipase Urine Opiates Screen Ur Barbiturates Screen Ur Phencyclidine Scrn Ur Amphetamines Screen U Benzodiazepines Scrn Urine Cocaine Screen U Marijuana (THC) Screen COVID-19 ([facility]) COVID-19 Clin Com Imaging Radiology Impressions: ITS Impressions Chest X-Ray 10/08/20 14:36 IMPRESSION: 1. Bibasilar linear subsegmental atelectasis. 2. Blunting right lateral costophrenic angle versus small groundglass opacity. Mental Status Exam Mental Status Exam Patient Appearance: Well Grooomed and Appropriate Patient Orientation: Person, Place, Time and Situation Level of Consciousness: Awake, Appropriate and Alert Patient Behavior: Appropriate and Cooperative Mood Description: Appropriate and Relaxed Affect Description: Appropriate and Relaxed Patient Cognition Impaired: No Ability to Follow Directions: Excellent Speech Pattern: Clear Hallucinations: None Thought Process: Rumination and Goal Oriented Thought Content: positive for Intact Depressive Symptoms: Increased Anxiety, Feelings of Guilt, Unhappiness and Low Self Esteem Judgement: Good Medications Medications Current Medications Generic Name Dose Route Start Last Admin Trade Name Freq PRN Reason Stop Dose Admin Acetaminophen 650 mg 10/08/20 20:29 Acetaminophen 325 Mg Tablet PO Q6H PRN Pain, Mild (Pain Scale 1-3) Albuterol/Ipratropium 3 ml 10/08/20 20:29 10/09/20 15:04 Albuterol/Iprat 2.5/0.5mg 3 Ml Ampul.Neb INHALE 3 ml RQ4H WHILE AWAKE BEATRIZ Administration Amphetamine/Dextroamphetamine 20 mg 10/08/20 21:00 10/09/20 07:56 Amphetamine Mixed Salts 20 Mg Tablet PO 20 mg BID BEATRIZ Administration Azithromycin 500 mg 10/09/20 17:00 10/09/20 16:44 Azithromycin 500 Mg Tablet PO 500 mg Q24H BEATRIZ Administration Docusate Sodium 100 mg 10/08/20 20:29 Docusate Sodium 100 Mg Capsule PO DAILY PRN Constipation Enoxaparin Sodium 40 mg 10/08/20 22:00 10/08/20 23:37 Enoxaparin Sodium 40 Mg/0.4 Ml Syringe SUBCUT 40 mg Q24H BEATRIZ Administration Guaifenesin/Dextromethorphan 1 tab 10/09/20 09:36 Guaifenesin Dm 600/30 1 Tab Tab.Er.12h PO BID PRN Cough Hydrochlorothiazide 25 mg 10/09/20 09:00 10/09/20 07:56 Hydrochlorothiazide 25 Mg Tablet PO 25 mg DAILY BEATRIZ Administration Protocol Ceftriaxone Sodium 1 gm/ 50 mls @ 100 mls/hr 10/09/20 16:00 10/09/20 16:42 Sodium Chloride IV Infused Q24H BEATRIZ Infusion Insulin Human Lispro 0 unit 10/08/20 21:00 10/09/20 16:43 Insulin Lispro 100 Unit/Ml 3 Ml Vial SUBCUT 6 unit QIDACHS [facility] Administration Protocol Lorazepam 0.5 mg 10/08/20 20:29 10/09/20 12:34 Lorazepam 0.5 Mg Tablet PO 0.5 mg TID PRN Administration anxiety Medication 1 each 10/10/20 09:00 No Benzodiazepines MISCELLANE DAILY [facility] Methylprednisolone Sodium Succinate 40 mg 10/09/20 04:00 10/09/20 16:07 Methylprednisolone Sod Succ/Pf 40 Mg/Ml Vial IVPUSH 40 mg Q12H BEATRIZ Administration Montelukast Sodium 10 mg 10/08/20 21:00 10/08/20 23:37 Montelukast Sodium 10 Mg Tablet PO 10 mg BEDTIME BEATRIZ Administration Ondansetron HCl 4 mg 10/08/20 20:29 Ondansetron Hcl 4 Mg/2 Ml Vial IVPUSH Q8H PRN Nausea and Vomiting Pharmacy Consult 1 each 10/08/20 16:51 Consult Rx Perform Med Rec MISCELLANE ONCE PRN Consult order Phenobarbital 45 mg 10/10/20 09:00 Phenobarbital 15 Mg Tablet PO 10/11/20 21:01 BID BEATRIZ Phenobarbital 15 mg 10/12/20 09:00 Phenobarbital 15 Mg Tablet PO 10/13/20 21:01 BID BEARTIZ Phenobarbital 15 mg 10/14/20 09:00 Phenobarbital 15 Mg Tablet PO 10/15/20 09:01 DAILY [facility] Phenobarbital Sodium 148 mg 10/09/20 19:00 Phenobarbital Sodium 130 Mg/Ml Vial IM 10/09/20 22:01 [id number] [facility] Sodium Chloride 3 ml 10/09/20 00:00 10/09/20 16:07 0.9 % Sodium Chloride Flush 3 Ml Syringe IVFLUSH 3 ml QSHIFT BEATRIZ Administration Allergies Allergies Allergy/AdvReac Type Severity Reaction Status Date / Time hydromorphone [From DILAUDID] Allergy Severe SEIZURES Verified 09/05/20 19:04 oxycodone [OXYCODONE] Allergy Severe SEIZURES Verified 09/05/20 19:04 gabapentin [GABAPENTIN] Allergy Intermediate MUSCLE ACHE Verified 09/05/20 19:04 bupropion [From WELLBUTRIN] Allergy Unknown SEIZURES Verified 09/05/20 19:04 phenytoin [Dilantin] Allergy Unknown Unknown Verified 09/05/20 19:04 Assessment & Plan Assessment & Plan (1) Alcohol use disorder, severe, dependence: Status: Acute Code(s): F10.20 - Alcohol dependence, uncomplicated Recommendations: * Pt wishing to trial Naltrexone to address alcohol use. Education provided regarding side effects, dosing, risks, interaction with other medications including opioids. * Unclear when discharge date is and if phenobarb will be started--Naltrexone can be started on day of discharge or once at home (this commercial real estate underwriter has already sent prescription to patient's pharmacy) * Appt at [facility] coordinated by Recovery Supp RN Greater than 50% of the session was spent on counseling and/or coordination of care PMFSH Past Medical History Medical History (Updated 10/09/20 @ 19:02 by Anaid Parsons CNP) ADHD Alcohol abuse Anxiety Asthma Asthma-COPD overlap syndrome Cocaine abuse COPD (chronic obstructive pulmonary disease) Epilepsy Fibromyalgia History of suicide attempt HTN (hypertension) Sleep apnea Tracheomalacia Surgical History Surgical History History of cholecystectomy Previous section Social History Social History (Updated 10/09/20 @ 18:59 by Anaid Parsons CNP) Household Members: Family Housing: House Alcohol intake: current Alcohol type: hard liquor Smoking Status: Former smoker Tobacco Type: Cigarette Second Hand Smoke Exposure: No Substance Use Type: Crack/Cocaine, Marijuana and Opiates Substance Use Type Other:: history OUD in remission for several years (per patient report) Any prior treatment program specific to substance use: Yes service: No Current occupational status: unemployed
[2020-10-09] MEDS: PHENobarbitaL sodium 130 MG/ML VIAL 148 MG IM ×2 (19:14→22:27)
[2020-10-09 20:38] LABS: Glucose, Whole Blood 335 mg/dL (60-115)
[2020-10-09] MEDS: Montelukast Sodium 10 MG TABLET PO (20:48)
[2020-10-09] MEDS: Enoxaparin Sodium 40 MG/0.4 ML SYRINGE SUBCUT (22:27)
[2020-10-10] VITALS (9 sets, daily range): BP systolic 122–160; BP diastolic 78–101; PULSE 74–110; RESP 16–20; TEMP 36.2–36.6; O2SAT 91–97
[2020-10-10] MEDS: Albuterol/Iprat 2.5/0.5MG 3 ML AMPUL.NEB INHALE ×4 (07:39→18:51)
[2020-10-10 08:14] LABS: Glucose, Whole Blood 341 mg/dL (60-115)
[2020-10-10] MEDS: Insulin Lispro 100 UNIT/ML 3 ML VIAL SUBCUT ×4 (08:24→20:59)
[2020-10-10] MEDS: hydroCHLOROthiazide 25 MG TABLET PO (08:25)
[2020-10-10] MEDS: Amphetamine Mixed Salts 20 MG TABLET PO ×2 (08:25→20:59)
[2020-10-10] MEDS: PHENobarbitaL 15 MG TABLET 45 MG PO ×2 (08:25→20:58)
[2020-10-10] MEDS: 0.9 % Sodium Chloride Flush 3 ML SYRINGE IVFLUSH ×3 (08:26→21:07)
--- NOTE | 2020-10-10 10:58 | HO.PM.IMPN ---
Subjective Subjective Date of Service: 10/10/20 Interval History: Shortness of breath improving, still with cough Initially denied daily etoh use on admission, but yesterday admitted to daily use and required pentobarbital for withdrawal. Seen by addiction medicine and care team Review of Systems Review of Systems: Yes all other systems are reviewed and are negative Constitutional Constitutional: Denies chills and Denies fever(s) Cardiovascular Cardiovascular: Denies chest pain Respiratory Respiratory: Reports cough Gastrointestinal Gastrointestinal: Denies abdominal pain Physical Exam Vital Signs: Vital Signs: Last Vital Signs Temp 97.3 F 10/10/20 08:00 Pulse 99 10/10/20 08:00 Resp 16 10/10/20 08:00 BP 149/90 H 10/10/20 08:00 Pulse Ox 97 10/10/20 08:00 Body Mass Index 28.0 Const: Nutritional Appearance: well nourished Orientation/consciousness: patient oriented x3 HENMT: Head: Yes normocephalic and Yes atraumatic Eyes: Sclerae: sclerae normal Chest: Chest palpation & inspection: normal inspection of the chest Resp: Effort & Inspection: normal respiratory effort and no respiratory distress Auscultation: wheezes throughout Cardio: Rate: regular rate Rhythm: regular rhythm GI: Palpation (GI): Soft to palpation and nontender Skin: General skin exam: no rashes or lesions noted Neuro: General: patient oriented x3 Cranial nerves: Yes CN's II-XII intact bilaterally and Yes Bilaterally intact EOM present Extrem: General: Yes normal to inspection Objective Data Current Medications Generic Name Dose Route Start Last Admin Trade Name Freq PRN Reason Stop Dose Admin Acetaminophen 650 mg 10/08/20 20:29 Acetaminophen 325 Mg Tablet PO Q6H PRN Pain, Mild (Pain Scale 1-3) Albuterol/Ipratropium 3 ml 10/08/20 20:29 10/10/20 07:39 Albuterol/Iprat 2.5/0.5mg 3 Ml Ampul.Neb INHALE 3 ml RQ4H WHILE AWAKE BEATRIZ Administration Amphetamine/Dextroamphetamine 20 mg 10/08/20 21:00 10/10/20 08:25 Amphetamine Mixed Salts 20 Mg Tablet PO 20 mg BID BEATRIZ Administration Azithromycin 500 mg 10/09/20 17:00 10/09/20 16:44 Azithromycin 500 Mg Tablet PO 500 mg Q24H BEATRIZ Administration Docusate Sodium 100 mg 10/08/20 20:29 Docusate Sodium 100 Mg Capsule PO DAILY PRN Constipation Enoxaparin Sodium 40 mg 10/08/20 22:00 10/09/20 22:27 Enoxaparin Sodium 40 Mg/0.4 Ml Syringe SUBCUT 40 mg Q24H BEATRIZ Administration Guaifenesin/Dextromethorphan 1 tab 10/09/20 09:36 Guaifenesin Dm 600/30 1 Tab Tab.Er.12h PO BID PRN Cough Hydrochlorothiazide 25 mg 10/09/20 09:00 10/10/20 08:25 Hydrochlorothiazide 25 Mg Tablet PO 25 mg DAILY BEATRIZ Administration Protocol Ceftriaxone Sodium 1 gm/ 50 mls @ 100 mls/hr 10/09/20 16:00 10/09/20 16:42 Sodium Chloride IV Infused Q24H BEATRIZ Infusion Insulin Human Lispro 0 unit 10/08/20 21:00 10/10/20 08:24 Insulin Lispro 100 Unit/Ml 3 Ml Vial SUBCUT 8 unit QIDACHS [facility] Administration Protocol Lorazepam 0.5 mg 10/08/20 20:29 10/09/20 12:34 Lorazepam 0.5 Mg Tablet PO 0.5 mg TID PRN Administration anxiety Medication 1 each 10/10/20 09:00 No Benzodiazepines MISCELLANE DAILY [facility] Methylprednisolone Sodium Succinate 40 mg 10/09/20 04:00 10/10/20 03:53 Methylprednisolone Sod Succ/Pf 40 Mg/Ml Vial IVPUSH 10/10/20 22:00 40 mg Q12H BEATRIZ Administration Montelukast Sodium 10 mg 10/08/20 21:00 10/09/20 20:48 Montelukast Sodium 10 Mg Tablet PO 10 mg BEDTIME BEATRIZ Administration Ondansetron HCl 4 mg 10/08/20 20:29 Ondansetron Hcl 4 Mg/2 Ml Vial IVPUSH Q8H PRN Nausea and Vomiting Pharmacy Consult 1 each 10/08/20 16:51 Consult Rx Perform Med Rec MISCELLANE ONCE PRN Consult order Phenobarbital 45 mg 10/10/20 09:00 10/10/20 08:25 Phenobarbital 15 Mg Tablet PO 10/11/20 21:01 45 mg BID BEATRIZ Administration Phenobarbital 15 mg 10/12/20 09:00 Phenobarbital 15 Mg Tablet PO 10/13/20 21:01 BID BEATRIZ Phenobarbital 15 mg 10/14/20 09:00 Phenobarbital 15 Mg Tablet PO 10/15/20 09:01 DAILY [facility] Prednisone 40 mg 10/11/20 09:00 Prednisone 20 Mg Tablet PO BID [facility] Sodium Chloride 3 ml 10/09/20 00:00 10/10/20 08:26 0.9 % Sodium Chloride Flush 3 Ml Syringe IVFLUSH 3 ml QSHIFT [facility] Administration Labs CBC & Chem 7: 10/09/20 06:03 10/09/20 06:03 Microbiology Microbiology Results: Microbiology 10/08/20 15:12 Blood - Venous Blood Culture - Preliminary No growth after 24 hours. 10/08/20 15:02 Blood - Venous Blood Culture - Preliminary No growth after 24 hours. Assessment and Plan (1) Alcohol use disorder, severe, dependence: Status: Acute (2) Acute asthma exacerbation: Status: Acute (3) Acute pneumonia: Status: Acute (4) Diabetes mellitus, new onset: Status: Acute Assessment and Plan: This is a 49-year-old female with history of asthma/COPD, tracheal malacia, ADHD, fibromyalgia, substance abuse who presents to the emergency room with shortness of breath Acute asthma/COPD exacerbation. Improving. Still has chest congestion. -Continue IV Solu-Medrol, transition to PO prednisone in am -Continue breathing treatments Community-acquired pneumonia, likely gram +or gram - -Continue IV ceftriaxone, azithromycin No evidence of sepsis Hyperglycemia In the setting of chronic steroid use HbA1c 6.5. POC still elevated 200s-300s -Repeat LA, if resolved, start Metformin -diabetic education -SSI, POCs, ADA diet alcohol abuse/alcohol withdrawal Improving evaluated by addiction medicine, plan for Naltrexone upon discharge -continue phenobarbitol Lactic acidosis Secondary to numerous breathing treatments no evidence of sepsis Hypertension Continue hydrochlorothiazide ADHD Continue Adderall Anxiety Continue Ativan DVT prophylaxis-Lovenox This case was discussed with Dr. Sellers
[2020-10-10 11:38] LABS: Glucose, Whole Blood 205 mg/dL (60-115)
[2020-10-10 11:57] LABS: Lactic Acid 2.6 mmol/L (0.5-2.0)
--- NOTE | 2020-10-10 12:04 | MHC.CM.PN ---
PATIENT HAS A SCHEDULED [facility] [place] APPOINTMENT ON OCTOBER 15, 2020 @ 14:45. INFORMATION INDICATED ON PATIENT'S DISCHARGE INSTRUCTIONS.
[2020-10-10] MEDS: glipiZIDE 5 MG TABLET 2.5 MG PO ×2 (12:42→17:17)
[2020-10-10 12:55] LABS: Reflex Lactate? Lactic Acid Added
--- NOTE | 2020-10-10 14:00 | PC.NURSE ---
1250 pt complained of tingling in her feet. no c/o pain. Stated she did not need anything for it but wanted MD to be made aware. MD aware. No new orders.
[2020-10-10] MEDS: cefTRIAXone sodium 1 GM in 0.9 % Sodium Chloride 50 ML IV (15:25)
[2020-10-10 15:35] LABS: ~Lactic Acid-LAB USE ONLY 2.7 mmol/L (0.5-2.0)
[2020-10-10 16:52] LABS: Reflex Lactate? 2 Y
[2020-10-10 17:14] LABS: Glucose, Whole Blood 152 mg/dL (60-115)
[2020-10-10] MEDS: Azithromycin 500 MG TABLET PO (17:17)
[2020-10-10 20:39] LABS: Glucose, Whole Blood 379 mg/dL (60-115)
[2020-10-10] MEDS: Montelukast Sodium 10 MG TABLET PO (20:58)
[2020-10-10] MEDS: Enoxaparin Sodium 40 MG/0.4 ML SYRINGE SUBCUT (20:59)
[2020-10-11 03:43] VITALS: BP 130/91; PULSE 90; RESP 20; TEMP 36.4; O2SAT 94
[2020-10-11 07:29] VITALS: BP 133/95; PULSE 85; RESP 20; TEMP 35.9; O2SAT 97
[2020-10-11] MEDS: Albuterol/Iprat 2.5/0.5MG 3 ML AMPUL.NEB INHALE (07:42)
[2020-10-11 07:44] VITALS: PULSE 83; O2SAT 97
[2020-10-11 08:27] LABS: Glucose, Whole Blood 112 mg/dL (60-115)
[2020-10-11] MEDS: PHENobarbitaL 15 MG TABLET 45 MG PO (09:30)
[2020-10-11] MEDS: glipiZIDE 5 MG TABLET 2.5 MG PO (09:30)
[2020-10-11] MEDS: hydroCHLOROthiazide 25 MG TABLET PO (09:30)
[2020-10-11] MEDS: predniSONE 20 MG TABLET 40 MG PO (09:31)
[2020-10-11] MEDS: Amphetamine Mixed Salts 20 MG TABLET PO (09:31)
[2020-10-11] MEDS: 0.9 % Sodium Chloride Flush 3 ML SYRINGE IVFLUSH (09:38)
--- NOTE | 2020-10-11 10:18 | PM.DS ---
DS: Providers Provider Date of Service: 10/11/20 <DANA Garcia - Last Filed: 10/11/20 13:49> 10/19/20 <Rory Sellers MD - Last Filed: 10/19/20 12:55> Date of admission: 10/08/20 17:30 <DANA Garcia - Last Filed: 10/11/20 13:49> Primary care physician: Jaison Navarrete PA-C <DANA Garcia - Last Filed: 10/11/20 13:49> Consults: 10/09/20 10:47 Consult to Care Team Routine Comment: Reason for consultation: pt requested for etoh use <DANA Garcia - Last Filed: 10/11/20 13:49> DS: Diagnosis Discharge Diagnosis (1) Alcohol use disorder, severe, dependence: Status: Acute <DANA Garcia - Last Filed: 10/11/20 13:49> (2) Acute asthma exacerbation: Status: Acute <DANA Garcia - Last Filed: 10/11/20 13:49> (3) Acute pneumonia: Status: Acute <DANA Garcia - Last Filed: 10/11/20 13:49> (4) Diabetes mellitus, new onset: Status: Acute <DANA Garcia - Last Filed: 10/11/20 13:49> DS: Medications Discharge Medications Home Medications: Home Medications Medication Instructions Recorded Confirmed hydrochlorothiazide 25 mg PO DAILY 06/20/20 10/08/20 dextroamphetamine-amphetamine 20 mg PO BID 07/26/20 10/08/20 fluticasone propion-salmeterol 1 inh INHALATION BID 10/08/20 10/08/20 ipratropium-albuterol [DuoNeb] 3 ml INHALATION Q6H PRN 10/08/20 10/08/20 montelukast [Singulair] 10 mg PO BEDTIME 10/08/20 10/08/20 Previous Rx's Medication Instructions Recorded lorazepam 0.5 mg tablet 0.5 mg PO TID PRN 30 Days #30 tab 08/11/20 albuterol sulfate 1 inh INHALATION QID PRN #8.5 g 10/06/20 doxycycline monohydrate 100 mg PO BID 10 Days #20 cap 10/06/20 prednisone 60 mg PO DAILY 5 Days #15 tab 10/06/20 naltrexone 50 mg tablet 50 mg PO DAILY #30 tab 10/09/20 blood sugar diagnostic [Accu-Chek #100 ea 10/11/20 Guide test strips] blood-glucose meter [Accu-Chek #1 ea 10/11/20 Guide Glucose Meter] lancets [Accu-Chek Multiclix #100 ea 10/11/20 Lancet] <DANA Garcia - Last Filed: 10/11/20 13:49> DS: Summary Hospital Course Hospital Course: This is a 49-year-old female with history of asthma/COPD and frequent admissions for the same who presents to the emergency department with shortness of breath. She was evaluated on October 06 and discharged home with prednisone and doxycycline. She returns today with ongoing shortness of breath. She reports associated cough and chest congestion but denies any fever or chills. She has been using her inhaler and nebulizer machine every few hours. She denies any recent sick contacts. Today in the emergency department her chest x-ray showed subtle possibility of pneumonia. Her white count was 11.6. Lactic acid was elevated at 6.0. COVID swab was negative she was also noted to be hyperglycemic with a glucose of 412. She was given a dose of IV Solu-Medrol, IV antibiotics, breathing treatments, IV fluid and a decision was made to admit her for further management. Acute asthma/COPD exacerbation. She was treated with breathing treatments, IV Solu-Medrol. She did not require supplemental oxygen. She will be transitioned to oral prednisone for discharge. Community-acquired pneumonia Was started on ceftriaxone and azithromycin. She will be discharged oral antibiotics to complete full course. Hyperglycemia. Blood sugar was over 400 on admission. HbA1c was 6.5. Due to elevated lactic acid she was started on glipizide rather than metformin. Lactic acid was elevated likely due to frequent use of albuterol and not sepsis She will be discharged home with glipizide and testing equipment. She should follow up with PCP She initially denied drinking alcohol on a daily basis later was noted to be in alcohol withdrawal. She admitted to drinking daily and requested assistance with abstaining from alcohol in the future. She was treated for alcohol withdrawal with phenobarbital. She was evaluated by addiction medicine with plan to start Naltrexone upon discharge <DANA Garcia Last Filed: 10/11/20 13:49> Time Spent with Patient Time attestation: Total time spent providing and/or coordinating discharge services: <DANA Garcia Last Filed: 10/11/20 13:49> Discharge coordination time: Greater than 30 minutes <DANA Garcia - Last Filed: 10/11/20 13:49> Physical Exam Vital Signs: Vital Signs: Last Vital Signs Temp 96.6 F L 10/11/20 07:29 Pulse 83 10/11/20 07:44 Resp 20 10/11/20 07:29 BP 133/95 H 10/11/20 07:29 Pulse Ox 97 10/11/20 07:29 Body Mass Index 28.0 <DANA Garcia Last Filed: 10/11/20 13:49> Const: Nutritional Appearance: well nourished <DANA Garcia Last Filed: 10/11/20 13:49> Orientation/consciousness: patient oriented x3 <DANA Garcia Last Filed: 10/11/20 13:49> HENMT: Head: Yes normocephalic and Yes atraumatic <DANA Garcia - Last Filed: 10/11/20 13:49> Eyes: Sclerae: sclerae normal <DANA Garcia Last Filed: 10/11/20 13:49> Chest: Chest palpation & inspection: normal inspection of the chest <DANA Garcia Last Filed: 10/11/20 13:49> Resp: Effort & Inspection: normal respiratory effort and no respiratory distress <DANA Garcia Last Filed: 10/11/20 13:49> Auscultation: wheezes scattered wheezes <DANA Garcia Last Filed: 10/11/20 13:49> Cardio: Rate: regular rate <DANA Garcia Last Filed: 10/11/20 13:49> Rhythm: regular rhythm <DANA Garcia Last Filed: 10/11/20 13:49> GI: Palpation (GI): Soft to palpation and nontender <DANA Garcia - Last Filed: 10/11/20 13:49> Skin: General skin exam: no rashes or lesions noted <DANA Garcia - Last Filed: 10/11/20 13:49> Neuro: General: patient oriented x3 <DANA Garcia - Last Filed: 10/11/20 13:49> Cranial nerves: Yes CN's II-XII intact bilaterally and Yes Bilaterally intact EOM present <DANA Garcia - Last Filed: 10/11/20 13:49> Extrem: General: Yes normal to inspection <DANA Garcia - Last Filed: 10/11/20 13:49> DS: Data Data Completed and Pending Labs on day of discharge: Laboratory Tests 10/08/20 10/08/20 10/08/20 14:50 14:54 14:55 WBC 11.6 H RBC 4.24 Hgb 14.1 Hct 41.8 MCV 98.6 H MCH 33.3 H MCHC 33.7 RDW 12.8 Plt Count 333 MPV 9.7 Immature Gran % (Auto) 1.0 H Neut % (Auto) 91.6 H Lymph % (Auto) 5.5 L Oliver % (Auto) 1.6 L Eos % (Auto) 0.0 Baso % (Auto) 0.3 Lymph # (Auto) 0.6 L Oliver # (Auto) 0.2 Eos # (Auto) 0.0 Baso # (Auto) 0.0 Abs Immat Gran (auto) 0.12 H Absolute Neuts (auto) 10.6 H Absolute Nucleated RBC 0.000 Nucleated RBC % (auto) 0.0 Smear Tech's Comments VERIFIED Sodium Potassium Chloride Carbon Dioxide Anion Gap BUN Creatinine Estim Creat Clear Calc Estimated GFR POC Glucose Random Glucose Estimat Average Glucose Hemoglobin A1c % Lactic Acid 6.0 H* Lactic Acid Fup @ 2Hr Lactic Acid Fup @ 4Hr Calcium Total Bilirubin AST ALT Alkaline Phosphatase Total Protein Albumin Lipase Urine Opiates Screen Ur Barbiturates Screen Ur Phencyclidine Scrn Ur Amphetamines Screen U Benzodiazepines Scrn Urine Cocaine Screen U Marijuana (THC) Screen COVID-19 ([facility]) Negative COVID-19 Clin Com See Note 10/08/20 10/08/20 10/08/20 14:55 15:40 16:23 WBC RBC Hgb Hct MCV MCH MCHC RDW Plt Count MPV Immature Gran % (Auto) Neut % (Auto) Lymph % (Auto) Oliver % (Auto) Eos % (Auto) Baso % (Auto) Lymph # (Auto) Oliver # (Auto) Eos # (Auto) Baso # (Auto) Abs Immat Gran (auto) Absolute Neuts (auto) Absolute Nucleated RBC Nucleated RBC % (auto) Smear Tech's Comments Sodium 137 Potassium 4.6 Chloride 104 Carbon Dioxide 20 L Anion Gap 18 BUN 15 Creatinine 1.08 Estim Creat Clear Calc 69.0 Estimated GFR 54 POC Glucose 303 H Random Glucose 412 H* Estimat Average Glucose 140 Hemoglobin A1c % 6.5 Lactic Acid Lactic Acid Fup @ 2Hr Lactic Acid Fup @ 4Hr Calcium 9.1 Total Bilirubin 0.2 AST 23 ALT 52 H Alkaline Phosphatase 93 D Total Protein 7.2 D Albumin 4.5 D Lipase 5 L Urine Opiates Screen Ur Barbiturates Screen Ur Phencyclidine Scrn Ur Amphetamines Screen U Benzodiazepines Scrn Urine Cocaine Screen U Marijuana (THC) Screen COVID-19 ([facility]) COVID-19 Clin Com 10/08/20 10/08/20 10/08/20 17:39 17:44 17:50 WBC RBC Hgb Hct MCV MCH MCHC RDW Plt Count MPV Immature Gran % (Auto) Neut % (Auto) Lymph % (Auto) Oliver % (Auto) Eos % (Auto) Baso % (Auto) Lymph # (Auto) Oliver # (Auto) Eos # (Auto) Baso # (Auto) Abs Immat Gran (auto) Absolute Neuts (auto) Absolute Nucleated RBC Nucleated RBC % (auto) Smear Tech's Comments Sodium Potassium Chloride Carbon Dioxide Anion Gap BUN Creatinine Estim Creat Clear Calc Estimated GFR POC Glucose 268 H Random Glucose Estimat Average Glucose Hemoglobin A1c % Lactic Acid Lactic Acid Fup @ 2Hr 4.1 H* Lactic Acid Fup @ 4Hr Calcium Total Bilirubin AST ALT Alkaline Phosphatase Total Protein Albumin Lipase Urine Opiates Screen Not Detected Ur Barbiturates Screen Not Detected Ur Phencyclidine Scrn Not Detected Ur Amphetamines Screen Not Detected U Benzodiazepines Scrn Not Detected Urine Cocaine Screen Not Detected U Marijuana (THC) Screen Not Detected COVID-19 ([facility]) COVID-19 [employer] Com 10/08/20 10/08/20 10/09/20 20:27 20:31 00:48 WBC RBC Hgb Hct MCV MCH MCHC RDW Plt Count MPV Immature Gran % (Auto) Neut % (Auto) Lymph % (Auto) Oliver % (Auto) Eos % (Auto) Baso % (Auto) Lymph # (Auto) Oliver # (Auto) Eos # (Auto) Baso # (Auto) Abs Immat Gran (auto) Absolute Neuts (auto) Absolute Nucleated RBC Nucleated RBC % (auto) Smear Tech's Comments Sodium Potassium Chloride Carbon Dioxide Anion Gap BUN Creatinine Estim Creat Clear Calc Estimated GFR POC Glucose 362 H* 256 H Random Glucose Estimat Average Glucose Hemoglobin A1c % Lactic Acid Lactic Acid Fup @ 2Hr Lactic Acid Fup @ 4Hr 6.2 H* Calcium Total Bilirubin AST ALT Alkaline Phosphatase Total Protein Albumin Lipase Urine Opiates Screen Ur Barbiturates Screen Ur Phencyclidine Scrn Ur Amphetamines Screen U Benzodiazepines Scrn Urine Cocaine Screen U Marijuana (THC) Screen COVID-19 ([facility]) COVID-19 [employer] Com 10/09/20 10/09/20 10/09/20 06:03 06:03 08:11 WBC 14.5 H RBC 3.99 L Hgb 13.0 Hct 39.3 MCV 98.5 H MCH 32.6 MCHC 33.1 RDW 12.5 Plt Count 322 MPV 10.1 Immature Gran % (Auto) 1.0 H Neut % (Auto) 89.1 H Lymph % (Auto) 6.5 L Oliver % (Auto) 3.3 Eos % (Auto) 0.0 Baso % (Auto) 0.1 Lymph # (Auto) 1.0 L Oliver # (Auto) 0.5 Eos # (Auto) 0.0 Baso # (Auto) 0.0 Abs Immat Gran (auto) 0.14 H Absolute Neuts (auto) 13.0 H Absolute Nucleated RBC 0.000 Nucleated RBC % (auto) 0.0 Smear Tech's Comments Sodium 138 Potassium 4.3 Chloride 105 Carbon Dioxide 21 L Anion Gap 16 BUN 14 Creatinine 0.73 Estim Creat Clear Calc 102.2 Estimated GFR > 60 POC Glucose 273 H Random Glucose 212 H D Estimat Average Glucose Hemoglobin A1c % Lactic Acid Lactic Acid Fup @ 2Hr Lactic Acid Fup @ 4Hr Calcium 9.0 Total Bilirubin AST ALT Alkaline Phosphatase Total Protein Albumin Lipase Urine Opiates Screen Ur Barbiturates Screen Ur Phencyclidine Scrn Ur Amphetamines Screen U Benzodiazepines Scrn Urine Cocaine Screen U Marijuana (THC) Screen COVID-19 ([facility]) COVID-[employer] 10/09/20 10/09/20 10/09/20 12:02 16:10 20:28 WBC RBC Hgb Hct MCV MCH MCHC RDW Plt Count MPV Immature Gran % (Auto) Neut % (Auto) Lymph % (Auto) Oliver % (Auto) Eos % (Auto) Baso % (Auto) Lymph # (Auto) Oliver # (Auto) Eos # (Auto) Baso # (Auto) Abs Immat Gran (auto) Absolute Neuts (auto) Absolute Nucleated RBC Nucleated RBC % (auto) Smear Tech's Comments Sodium Potassium Chloride Carbon Dioxide Anion Gap BUN Creatinine Estim Creat Clear Calc Estimated GFR POC Glucose 239 H 275 H 335 H Random Glucose Estimat Average Glucose Hemoglobin A1c % Lactic Acid Lactic Acid Fup @ 2Hr Lactic Acid Fup @ 4Hr Calcium Total Bilirubin AST ALT Alkaline Phosphatase Total Protein Albumin Lipase Urine Opiates Screen Ur Barbiturates Screen Ur Phencyclidine Scrn Ur Amphetamines Screen U Benzodiazepines Scrn Urine Cocaine Screen U Marijuana (THC) Screen COVID-19 ([facility]) COVID-Allegory Law 10/10/20 10/10/20 10/10/20 08:10 10:52 11:33 WBC RBC Hgb Hct MCV MCH MCHC RDW Plt Count MPV Immature Gran % (Auto) Neut % (Auto) Lymph % (Auto) Oliver % (Auto) Eos % (Auto) Baso % (Auto) Lymph # (Auto) Oliver # (Auto) Eos # (Auto) Baso # (Auto) Abs Immat Gran (auto) Absolute Neuts (auto) Absolute Nucleated RBC Nucleated RBC % (auto) Smear Tech's Comments Sodium Potassium Chloride Carbon Dioxide Anion Gap BUN Creatinine Estim Creat Clear Calc Estimated GFR POC Glucose 341 H 205 H Random Glucose Estimat Average Glucose Hemoglobin A1c % Lactic Acid 2.6 H* Lactic Acid Fup @ 2Hr Lactic Acid Fup @ 4Hr Calcium Total Bilirubin AST ALT Alkaline Phosphatase Total Protein Albumin Lipase Urine Opiates Screen Ur Barbiturates Screen Ur Phencyclidine Scrn Ur Amphetamines Screen U Benzodiazepines Scrn Urine Cocaine Screen U Marijuana (THC) Screen COVID-19 ([facility]) COVID-Allegory Law 10/10/20 10/10/20 10/10/20 14:43 17:10 17:10 WBC RBC Hgb Hct MCV MCH MCHC RDW Plt Count MPV Immature Gran % (Auto) Neut % (Auto) Lymph % (Auto) Oliver % (Auto) Eos % (Auto) Baso % (Auto) Lymph # (Auto) Oliver # (Auto) Eos # (Auto) Baso # (Auto) Abs Immat Gran (auto) Absolute Neuts (auto) Absolute Nucleated RBC Nucleated RBC % (auto) Smear Tech's Comments Sodium Potassium Chloride Carbon Dioxide Anion Gap BUN Creatinine Estim Creat Clear Calc Estimated GFR POC Glucose 152 H Random Glucose Estimat Average Glucose Hemoglobin A1c % Lactic Acid Lactic Acid Fup @ 2Hr 2.7 H* Lactic Acid Fup @ 4Hr 2.0 Calcium Total Bilirubin AST ALT Alkaline Phosphatase Total Protein Albumin Lipase Urine Opiates Screen Ur Barbiturates Screen Ur Phencyclidine Scrn Ur Amphetamines Screen U Benzodiazepines Scrn Urine Cocaine Screen U Marijuana (THC) Screen COVID-19 ([facility]) [employer] 10/10/20 10/11/20 20:21 07:28 WBC RBC Hgb Hct MCV MCH MCHC RDW Plt Count MPV Immature Gran % (Auto) Neut % (Auto) Lymph % (Auto) Oliver % (Auto) Eos % (Auto) Baso % (Auto) Lymph # (Auto) Oliver # (Auto) Eos # (Auto) Baso # (Auto) Abs Immat Gran (auto) Absolute Neuts (auto) Absolute Nucleated RBC Nucleated RBC % (auto) Smear Tech's Comments Sodium Potassium Chloride Carbon Dioxide Anion Gap BUN Creatinine Estim Creat Clear Calc Estimated GFR POC Glucose 379 H* 112 Random Glucose Estimat Average Glucose Hemoglobin A1c % Lactic Acid Lactic Acid Fup @ 2Hr Lactic Acid Fup @ 4Hr Calcium Total Bilirubin AST ALT Alkaline Phosphatase Total Protein Albumin Lipase Urine Opiates Screen Ur Barbiturates Screen Ur Phencyclidine Scrn Ur Amphetamines Screen U Benzodiazepines Scrn Urine Cocaine Screen U Marijuana (THC) Screen COVID-19 ([facility]) [employer] Preliminary micro results at discharge 10/08/20 15:12 Blood Culture - Preliminary Blood - Venous No growth after 48 hours. 10/08/20 15:02 Blood Culture - Preliminary Blood - Venous No growth after 48 hours. <DANA aGrcia - Last Filed: 10/11/20 13:49> Discharge Plan Discharge Anticipated Discharge Date/Time: 10/11/20 09:39 <DANA Garcia - Last Filed: 10/11/20 13:49> Patient Disposition: Home, Self-Care <DANA Garcia - Last Filed: 10/11/20 13:49> Referrals: [facility] [Other] (YOU HAVE A SCHEDULED APPOINTMENT AT [facility]. Monday @ 2:45 PM. PLEASE CALL TO RESCHEDULE IF THIS TIME DOES NOT WORK FOR YOU.) Jaison Navarrete PA-C [Primary Care Provider] - <DANA Garcia - Last Filed: 10/11/20 13:49> Discharge Medications: New azithromycin 250 mg tablet 250 mg PO DAILY 5 Days Qty: 3 RF: 0 cefuroxime axetil 250 mg tablet 250 mg PO BID Qty: 6 RF: 0 prednisone 10 mg tablet 40 mg PO DAILY Qty: 12 RF: 0 glipizide 5 mg tablet 2.5 mg PO DAILY Qty: 30 RF: 0 (DME) blood-glucose meter [Accu-Chek Guide Glucose Meter] Misc See Rx Instructions .ROUTE .MEDSUPPLY Qty: 1 RF: 0 (DME) Accu-Chek Guide test strips Strip See Rx Instructions .ROUTE .MEDSUPPLY Qty: 100 RF: 0 (DME) lancets [Accu-Chek Multiclix Lancet] Misc See Rx Instructions .ROUTE .MEDSUPPLY Qty: 100 RF: 0 alcohol swabs [Alcohol Pads] Pads, Medicated 1 pad topical DIRECTED Qty: 200 RF: 0 Continued naltrexone 50 mg tablet 50 mg PO DAILY Qty: 30 RF: 1 albuterol sulfate 90 mcg/actuation HFA aerosol inhaler 1 inh inhalation QID PRN (Reason: shortness of breath or wheezing) Qty: 8.5 RF: 0 hydrochlorothiazide 25 mg Tablet 25 mg PO DAILY RF: 0 dextroamphetamine-amphetamine 20 mg tablet 20 mg PO BID RF: 0 ipratropium-albuterol 0.5 mg-3 mg(2.5 mg base)/3 mL Solution For Nebulization 3 ml INHALATION Q6H PRN (Reason: Respiratory Distress) RF: 0 fluticasone propion-salmeterol 113-14 mcg/actuation Aerosol Powdr Breath Activated 1 inh INHALATION BID RF: 0 montelukast [Singulair] 10 mg tablet 10 mg PO BEDTIME RF: 0 lorazepam 0.5 mg tablet 0.5 mg PO TID PRN (Reason: anxiety) 30 Days Qty: 30 RF: 1 Discontinued doxycycline monohydrate 100 mg capsule 100 mg PO BID 10 Days Qty: 20 RF: 0 prednisone 20 mg tablet 60 mg PO DAILY 5 Days Qty: 15 RF: 0 <DANA Garcia - Last Filed: 10/11/20 13:49> Discharge Orders: Discharge Order (Routine); Ordered 10/11/20 Ordered By: Linda Pretty <DANA Garcia - Last Filed: 10/11/20 13:49> Activity on Discharge: As tolerated <DANA Garcia - Last Filed: 10/11/20 13:49> As tolerated <Rory Sellers MD - Last Filed: 10/19/20 12:55> Stand Alone Forms: Patient Portal Discharge page <DANA Garcia - Last Filed: 10/11/20 13:49> Visit Report Forms: Patient Portal Discharge page <DANA Garcia - Last Filed: 10/11/20 13:49> Care Plan Goals: Please see below <DANA Garcia - Last Filed: 10/11/20 13:49> Health Concerns: Please see below <DANA Garcia - Last Filed: 10/11/20 13:49> Plan of Treatment: New diabetes. Your blood sugar was elevated. HbA1c was 6.5. Please continue taking Glipizide as directed (once daily). Check your blood sugar before meals and at bedtime. See handout for how to check blood sugar and additional information. Asthma/copd exacerbation - continue higher dose of prednisone 40 mg daily for 3 more days, then go back down to normal home dose of 5mg daily Pneumonia. Finish entire course of antibiotics as directed Follow-up with PCP in 1 week - call for appointment <DANA Garcia - Last Filed: 10/11/20 13:49> Patient Instructions: Hypoglycemia in a Person with Diabetes (DC), Diabetes and Nutrition (DC), Diabetes and Nutrition (GEN), How to Check your Blood Sugar (DC) <DANA Garcia - Last Filed: 10/11/20 13:49> Discharge Date/Time: 10/11/20 11:30 <DANA Garcia - Last Filed: 10/11/20 13:49>
[2020-10-11 11:35] LABS: Glucose, Whole Blood 162 mg/dL (60-115)
--- NOTE | 2020-10-11 11:44 | MHC.CM.PN ---
PATIENT IS DISCHARGED HOME - [facility] CARE[facility]
[2020-10-15 03:48] LABS: Beta-Hydroxybutyrate 0.08 mmol/L
== END 2020-10-11 11:30 | disposition home or self-care (01) | DRG 190 ==
LOC: HO.ED 14:18 → HO.EDOVER 17:38 → HO.S3 22:06
PROVIDERS: Physician Assistant Medical; Admitting Provider Internal Medicine; Emergency Provider Emergency Medicine Emergency Medical Services; PCP Physician Assistant; Visit Provider Internal Medicine
DX: J44.0 Chronic obstructive pulmonary disease with (acute) lower respiratory infection (principal); J15.9 Unspecified bacterial pneumonia; J45.41 Moderate persistent asthma with (acute) exacerbation; E87.2 Acidosis; F10.239 Alcohol dependence with withdrawal, unspecified; F10.20 Alcohol dependence, uncomplicated; J44.1 Chronic obstructive pulmonary disease with (acute) exacerbation; E11.65 Type 2 diabetes mellitus with hyperglycemia; F90.9 Attention-deficit hyperactivity disorder, unspecified type; F41.9 Anxiety disorder, unspecified; Z20.822 Contact with and (suspected) exposure to COVID-19; Z88.5 Allergy status to narcotic agent; Z79.51 Long term (current) use of inhaled steroids; Z79.52 Long term (current) use of systemic steroids; Z79.899 Other long term (current) drug therapy
CPT/HCPCS: 36415; 71045; 80048; 80053; 80307; 82010; 82947; 83036; 83605; 83690; 85025; 87040; 87635; 93005; 96365; 96366; 96367; 96375; 99284; 99285; J0456; J0696; J1650; J2560; J2920; J2930

== ENCOUNTER → 2020-10-15 14:39 | Outpatient (BNVA) | payer OTHER, SELFPAY | PROVIDERS: PCP Physician Assistant; Visit Provider Nurse Practitioner Psychiatric/Mental Health | DX: F10.20 Alcohol dependence, uncomplicated (principal) | CPT/HCPCS: 80305 ==

== ENCOUNTER 2020-11-05 09:04 | Inpatient (IN) | payer OTHER, SELFPAY ==
[2020-11-05] VITALS (9 sets, daily range): BP systolic 108–154; BP diastolic 68–81; PULSE 104–117; RESP 14–26; TEMP 36.7–37.1; O2SAT 92–96; BMI 36.6
--- NOTE | ~2020-11-05 | XR_ITS ---
EXAMINATION: XR CHEST CLINICAL INFORMATION: Dyspnea. COMPARISON: 10/08/2020 chest radiographs. TECHNIQUE: 2 views of the chest were obtained. FINDINGS: No significant abnormality is noted involving the heart, lungs, mediastinum, bony thorax or soft tissues. XR/XR chest 2V IMPRESSION: No acute cardiopulmonary process.
--- NOTE | 2020-11-05 09:51 | ECG_ITS ---
Test Reason : SOB Blood Pressure : / mmHG Vent. Rate : 101 BPM Atrial Rate : 101 BPM P-R Int : 146 ms QRS Dur : 098 ms QT Int : 388 ms P-R-T Axes : 068 039 064 degrees QTc Int : 503 ms Sinus tachycardia Nonspecific T wave abnormality Abnormal ECG When compared with ECG of 08-OCT-2020 14:59, Nonspecific T wave abnormality now evident in Lateral leads Referred By: Anushka Covington Electronically Signed By:Chino Perez
--- NOTE | 2020-11-05 10:02 | ED_ITS ---
HPI - Asthma General Chief Complaint: Asthma Stated Complaint: ASTHMA Time Seen by Provider: 11/05/20 09:19 Source: patient Mode of arrival: ambulatory Limitations: no limitations History of Present Illness HPI Narrative: 49 y/o female with history of severe persistent asthma on chronic prednisone, hx frequent admissions for asthma exacerbations, HTN, TEO, DM2, hx PNA, hx cocaine use, hx ETOH abuse (sober x1 month), former smoker, hx depression with prior suicide attempt who presents to the ED with SOB, wheezing and productive cough for the last 3 days. She has been using her nebulizers and inhalers at home with no improvement. She has been coughing up green phlegm. She reports chest discomfort due to coughing. She denies fever, chills, N/V/D, abdominal pain, headaches, myalgias. No known exposure to COVID. No sick contacts. Related Data Home Medications Medication Instructions Recorded Confirmed dextroamphetamine-amphetamine 20 mg PO BID@0700,1600 07/26/20 11/05/20 fluticasone propion-salmeterol 1 inh INHALATION BID 10/08/20 11/05/20 ipratropium-albuterol 3 ml INHALATION Q6H PRN 10/08/20 11/05/20 montelukast [Singulair] 10 mg PO BEDTIME 10/08/20 11/05/20 prednisone 5 mg tablet 5 mg PO DAILY 10/28/20 11/05/20 albuterol sulfate 1 inh INHALATION Q4H PRN 11/05/20 11/05/20 hydrochlorothiazide 25 mg PO DAILY 11/05/20 11/05/20 multivitamin 1 tab PO DAILY 11/05/20 11/05/20 Previous Rx's Medication Instructions Recorded lorazepam 0.5 mg tablet 0.5 mg PO TID PRN 30 Days #30 tab 08/11/20 naltrexone 50 mg tablet 50 mg PO DAILY #30 tab 10/09/20 alcohol swabs [Alcohol Pads] 1 pad TOPICAL DIRECTED #200 ea 10/11/20 blood sugar diagnostic [Accu-Chek #100 ea 10/11/20 Guide test strips] blood-glucose meter [Accu-Chek #1 ea 10/11/20 Guide Glucose Meter] glipizide 2.5 mg PO DAILY #30 tab 10/11/20 lancets [Accu-Chek Multiclix #100 ea 10/11/20 Lancet] lisinopril 10 1 tab PO DAILY 30 Days #30 tab 10/28/20 mg-hydrochlorothiazide 12.5 mg tablet Allergies Allergy/AdvReac Type Severity Reaction Status Date / Time hydromorphone [From DILAUDID] Allergy Severe SEIZURES Verified 10/28/20 09:25 oxycodone [OXYCODONE] Allergy Severe SEIZURES Verified 10/28/20 09:25 gabapentin [GABAPENTIN] Allergy Intermediate MUSCLE ACHE Verified 10/28/20 09:25 bupropion [From WELLBUTRIN] Allergy Unknown SEIZURES Verified 10/28/20 09:25 phenytoin [Dilantin] Allergy Unknown Unknown Verified 10/28/20 09:25 Review of Systems Review of Systems: Constitutional: No Fever, No Chills ENT/Mouth: No sore throat, No Rhinorrhea, No Swallowing Difficulty Cardiovascular: + Chest Pain, + SOB, No Orthopnea, No Edema Respiratory: + Cough, + Sputum, + Wheezing, + dyspnea Gastrointestinal: No Nausea, No Vomiting, No Diarrhea, No abdominal Pain Genitourinary: No Dysuria, No Urinary Frequency, No Hematuria Musculoskeletal: No joint pain, No Myalgias Skin: No Skin Lesions, No rash Neuro: No Weakness, No Numbness, No Dizziness, No Headache Psych: + Anxiety/Panic, No Depression Heme/Lymph: No Bruising, No Lymphadenopathy Endocrine: No Polyuria, No Polydipsia PMFSH Past Medical History Attestation statement: The following information was validated with the patient. Medical History ADHD Alcohol abuse Anxiety Asthma Asthma-COPD overlap syndrome Cocaine abuse COPD (chronic obstructive pulmonary disease) Epilepsy Fibromyalgia History of suicide attempt HTN (hypertension) Sleep apnea Tracheomalacia Surgical History History of cholecystectomy Previous section Family History Family History Father No problems noted. Mother Cervical cancer Social History Social History Household Members: Family Housing: House Alcohol intake: former Smoking Status: Former smoker Tobacco Type: Cigarette Second Hand Smoke Exposure: No Use of substances other than those prescribed or required for medical reasons: No Substance Use Type: Crack/Cocaine, Marijuana and Opiates Advance Directives: No Advance Directives Information Provided: Yes service: No Current occupational status: unemployed Physical Exam Vital Signs: Vital Signs: Last Vital Signs Temp 98.8 F 11/05/20 09:54 Pulse 115 H 11/05/20 13:21 Resp 16 11/05/20 13:21 BP 108/72 11/05/20 13:21 Pulse Ox 93 11/05/20 13:21 Body Mass Index 36.6 Appearance: Alert. Oriented X3. Moderate respiratory distress, audible wheezing from bedside. Eyes: Pupils equal, round and reactive to light. ENT: Pharynx normal. Neck: Normal inspection. Neck supple. CVS: tachycardic, regular rhythm. Pulses normal. Respiratory: moderate respiratory distress with diffuse wheezing and rhonchi throughout and prolonged expiratory phase. Speaking in short sentences Abdomen: Obese, Soft and nontender. +BS x4 Skin: Skin warm and dry. Normal skin color. Normal skin turgor. No rashes. Extremities: No lower extremity edema. Negative Lyudmila's sign Neuro: Oriented X 3. No motor deficit. No sensory deficit. Non-focal. Course Course Course Narrative: 49 y/o female with poorly controlled asthma presenting with SOB, wheezing and productive cough at home for the last 3 days despite using her home nebs and inhalers. Tachycardic and increased WOB on arrival with diffuse wheezing consistent with asthma exacerbation. SpO2 92% on room air, w/ RR 26. Possible bronchitis vs pneumonia with report of green phlegm, will get CXR, procalcitonin. No fevers. Will likley require admission. Will give hour long albuterol neb, 125 mg IV solumedrol, 2g Mg+ and reassess. Reevaluation(s) Reevaluation #1: CXR negative for acute infiltrate. Procalcitonin low. COVID negative. Doubt acute bacterial infection. Will add viral pathogen panel and send a sputum culture. Hold off on antibiotics for now. Continues to be wheezy - but she feels slightly better. Walked to the bathroom and desaturated to high 80's with increased WOB. 2nd hour long nebulizer treatment ordered. Reevaluation #2: Patient remains on 2L NC with diffuse, although improving whe ezing after 2 nebs. Spoke with Carol Lopez who will admit the patient for acute asthma exacerbation. MDM - Asthma Lab Data Result diagrams: 11/05/20 10:18 11/05/20 10:18 Labs: Lab Results 11/05/20 11/05/20 11/05/20 Range/Units 10:02 10:18 10:18 WBC 7.1 (4.8-10.8) X10*3/uL RBC 4.43 (4.20-5.50) X10*6/uL Hgb 14.1 (12.0-16.0) g/dl Hct 42.1 (37-47) % MCV 95.0 (80-98) fL MCH 31.8 (27.0-33.0) pg MCHC 33.5 (31.0-35.0) g/dl RDW 11.9 (11.0-16.0) % Plt Count 388 (160-400) X10*3/uL MPV 9.8 (9.4-12.3) fL Immature Gran % (Auto) 0.3 (0.0-0.4) % Neut % (Auto) 60.7 (45-73) % Lymph % (Auto) 25.7 (20-40) % Amelia % (Auto) 7.3 (2-11) % Eos % (Auto) 4.9 H (0-4) % Baso % (Auto) 1.1 (0-2) % Lymph # (Auto) 1.8 (1.2-4.9) X10*3/uL Amelia # (Auto) 0.5 (0.1-1.2) X10*3/uL Eos # (Auto) 0.4 (0.0-0.4) X10*3/uL Baso # (Auto) 0.1 (0.0-0.2) X10*3/uL Abs Immat Gran (auto) 0.02 (0.00-0.03) X10*3/uL Absolute Neuts (auto) 4.3 (2.0-8.3) X10*3/uL Absolute Nucleated RBC 0.000 (0.0-0.012) X10*3/uL Nucleated RBC % (auto) 0.0 (0.0-0.2) /100WBC Hold Blue Top Sodium 141 (135-145) mmol/L Potassium 4.5 (3.3-5.1) mmol/L Chloride 107 (96-108) mmol/L Carbon Dioxide 24 (22-29) mmol/L Anion Gap 15 (12-20) BUN 13 (9-16) mg/dL Creatinine 0.77 (0.5-1.4) mg/dL Estim Creat Clear Calc 89.2 Estimated GFR > 60 POC Glucose (60-115) mg/dL Random Glucose 174 H (60-115) mg/dL Lactic Acid (0.5-2.0) mmol/L Calcium 9.2 (8.4-10.2) mg/dL Magnesium 2.1 (1.6-2.6) mg/dL Total Bilirubin 0.6 (0.0-1.0) mg/dL Direct Bilirubin 0.2 (0.0-0.5) mg/dL AST 20 (5-31) U/L ALT 31 (0-31) U/L Alkaline Phosphatase 78 (39-117) U/L B-Natriuretic Peptide (<100) pg/mL Total Protein 6.8 (6.5-8.0) g/dL Albumin 4.2 (3.5-5.0) g/dL Procalcitonin ng/mL Urine Color Urine Appearance Urine pH (5.0-8.0) Ur Specific [place] (1.005-1.025) Urine Protein (NEG-TRACE) MG/DL Urine Glucose (UA) (NEG) MG/DL Urine Ketones (NEG) MG/DL Urine Blood (NEG) Urine Nitrite (NEG) Ur Leukocyte Esterase (NEG) Urine Test (NEGATIVE) Urine Opiates Screen (Not Detect) Ur Barbiturates Screen (Not Detect) Ur Phencyclidine Scrn (Not Detect) Ur Amphetamines Screen (Not Detect) U Benzodiazepines Scrn (Not Detect) Urine Cocaine Screen (Not Detect) U Marijuana (THC) Screen (Not Detect) COVID-19 ([facility]) Negative (Negative) COVID-19 Clin Com See Note 11/05/20 11/05/20 11/05/20 Range/Units 10:18 10:18 10:18 WBC (4.8-10.8) X10*3/uL RBC (4.20-5.50) X10*6/uL Hgb (12.0-16.0) g/dl Hct (37-47) % MCV (80-98) fL MCH (27.0-33.0) pg MCHC (31.0-35.0) g/dl RDW (11.0-16.0) % Plt Count (160-400) X10*3/uL MPV (9.4-12.3) fL Immature Gran % (Auto) (0.0-0.4) % Neut % (Auto) (45-73) % Lymph % (Auto) (20-40) % Amelia % (Auto) (2-11) % Eos % (Auto) (0-4) % Baso % (Auto) (0-2) % Lymph # (Auto) (1.2-4.9) X10*3/uL Amelia # (Auto) (0.1-1.2) X10*3/uL Eos # (Auto) (0.0-0.4) X10*3/uL Baso # (Auto) (0.0-0.2) X10*3/uL Abs Immat Gran (auto) (0.00-0.03) X10*3/uL Absolute Neuts (auto) (2.0-8.3) X10*3/uL Absolute Nucleated RBC (0.0-0.012) X10*3/uL Nucleated RBC % (auto) (0.0-0.2) /100WBC Hold Blue Top SEE NOTE Sodium (135-145) mmol/L Potassium (3.3-5.1) mmol/L Chloride (96-108) mmol/L Carbon Dioxide (22-29) mmol/L Anion Gap (12-20) BUN (9-16) mg/dL Creatinine (0.5-1.4) mg/dL Estim Creat Clear Calc Estimated GFR POC Glucose (60-115) mg/dL Random Glucose (60-115) mg/dL Lactic Acid 1.5 (0.5-2.0) mmol/L Calcium (8.4-10.2) mg/dL Magnesium (1.6-2.6) mg/dL Total Bilirubin (0.0-1.0) mg/dL Direct Bilirubin (0.0-0.5) mg/dL AST (5-31) U/L ALT (0-31) U/L Alkaline Phosphatase (39-117) U/L B-Natriuretic Peptide < 10 (<100) pg/mL Total Protein (6.5-8.0) g/dL Albumin (3.5-5.0) g/dL Procalcitonin ng/mL Urine Color Urine Appearance Urine pH (5.0-8.0) Ur Specific [place] (1.005-1.025) Urine Protein (NEG-TRACE) MG/DL Urine Glucose (UA) (NEG) MG/DL Urine Ketones (NEG) MG/DL Urine Blood (NEG) Urine Nitrite (NEG) Ur Leukocyte Esterase (NEG) Urine Test (NEGATIVE) Urine Opiates Screen (Not Detect) Ur Barbiturates Screen (Not Detect) Ur Phencyclidine Scrn (Not Detect) Ur Amphetamines Screen (Not Detect) U Benzodiazepines Scrn (Not Detect) Urine Cocaine Screen (Not Detect) U Marijuana (THC) Screen (Not Detect) COVID-19 ([facility]) (Negative) COVID-19 Clin Com 11/05/20 11/05/20 11/05/20 Range/Units 10:18 12:14 12:14 WBC (4.8-10.8) X10*3/uL RBC (4.20-5.50) X10*6/uL Hgb (12.0-16.0) g/dl Hct (37-47) % MCV (80-98) fL MCH (27.0-33.0) pg MCHC (31.0-35.0) g/dl RDW (11.0-16.0) % Plt Count (160-400) X10*3/uL MPV (9.4-12.3) fL Immature Gran % (Auto) (0.0-0.4) % Neut % (Auto) (45-73) % Lymph % (Auto) (20-40) % Amelia % (Auto) (2-11) % Eos % (Auto) (0-4) % Baso % (Auto) (0-2) % Lymph # (Auto) (1.2-4.9) X10*3/uL Amelia # (Auto) (0.1-1.2) X10*3/uL Eos # (Auto) (0.0-0.4) X10*3/uL Baso # (Auto) (0.0-0.2) X10*3/uL Abs Immat Gran (auto) (0.00-0.03) X10*3/uL Absolute Neuts (auto) (2.0-8.3) X10*3/uL Absolute Nucleated RBC (0.0-0.012) X10*3/uL Nucleated RBC % (auto) (0.0-0.2) /100WBC Hold Blue Top Sodium (135-145) mmol/L Potassium (3.3-5.1) mmol/L Chloride (96-108) mmol/L Carbon Dioxide (22-29) mmol/L Anion Gap (12-20) BUN (9-16) mg/dL Creatinine (0.5-1.4) mg/dL Estim Creat Clear Calc Estimated GFR POC Glucose (60-115) mg/dL Random Glucose (60-115) mg/dL Lactic Acid (0.5-2.0) mmol/L Calcium (8.4-10.2) mg/dL Magnesium (1.6-2.6) mg/dL Total Bilirubin (0.0-1.0) mg/dL Direct Bilirubin (0.0-0.5) mg/dL AST (5-31) U/L ALT (0-31) U/L Alkaline Phosphatase (39-117) U/L B-Natriuretic Peptide (<100) pg/mL Total Protein (6.5-8.0) g/dL Albumin (3.5-5.0) g/dL Procalcitonin 0.08 ng/mL Urine Color YELLOW Urine Appearance CLEAR Urine pH 5.5 (5.0-8.0) Ur Specific [place] >= 1.030 H (1.005-1.025) Urine Protein NEG (NEG-TRACE) MG/DL Urine Glucose (UA) NEG (NEG) MG/DL Urine Ketones NEG (NEG) MG/DL Urine Blood NEG (NEG) Urine Nitrite NEG (NEG) Ur Leukocyte Esterase NEG (NEG) Urine Test NEGATIVE (NEGATIVE) Urine Opiates Screen Not Detected (Not Detect) Ur Barbiturates Screen Not Detected (Not Detect) Ur Phencyclidine Scrn Not Detected (Not Detect) Ur Amphetamines Screen Not Detected (Not Detect) U Benzodiazepines Scrn Not Detected (Not Detect) Urine Cocaine Screen Not Detected (Not Detect) U Marijuana (THC) Screen POSITIVE H (Not Detect) COVID-19 ([facility]) (Negative) COVID-19 Clin Com 11/05/20 Range/Units 12:21 WBC (4.8-10.8) X10*3/uL RBC (4.20-5.50) X10*6/uL Hgb (12.0-16.0) g/dl Hct (37-47) % MCV (80-98) fL MCH (27.0-33.0) pg MCHC (31.0-35.0) g/dl RDW (11.0-16.0) % Plt Count (160-400) X10*3/uL MPV (9.4-12.3) fL Immature Gran % (Auto) (0.0-0.4) % Neut % (Auto) (45-73) % Lymph % (Auto) (20-40) % Amelia % (Auto) (2-11) % Eos % (Auto) (0-4) % Baso % (Auto) (0-2) % Lymph # (Auto) (1.2-4.9) X10*3/uL Amelia # (Auto) (0.1-1.2) X10*3/uL Eos # (Auto) (0.0-0.4) X10*3/uL Baso # (Auto) (0.0-0.2) X10*3/uL Abs Immat Gran (auto) (0.00-0.03) X10*3/uL Absolute Neuts (auto) (2.0-8.3) X10*3/uL Absolute Nucleated RBC (0.0-0.012) X10*3/uL Nucleated RBC % (auto) (0.0-0.2) /100WBC Hold Blue Top Sodium (135-145) mmol/L Potassium (3.3-5.1) mmol/L Chloride (96-108) mmol/L Carbon Dioxide (22-29) mmol/L Anion Gap (12-20) BUN (9-16) mg/dL Creatinine (0.5-1.4) mg/dL Estim Creat Clear Calc Estimated GFR POC Glucose 186 H (60-115) mg/dL Random Glucose (60-115) mg/dL Lactic Acid (0.5-2.0) mmol/L Calcium (8.4-10.2) mg/dL Magnesium (1.6-2.6) mg/dL Total Bilirubin (0.0-1.0) mg/dL Direct Bilirubin (0.0-0.5) mg/dL AST (5-31) U/L ALT (0-31) U/L Alkaline Phosphatase (39-117) U/L B-Natriuretic Peptide (<100) pg/mL Total Protein (6.5-8.0) g/dL Albumin (3.5-5.0) g/dL Procalcitonin ng/mL Urine Color Urine Appearance Urine pH (5.0-8.0) Ur Specific [place] (1.005-1.025) Urine Protein (NEG-TRACE) MG/DL Urine Glucose (UA) (NEG) MG/DL Urine Ketones (NEG) MG/DL Urine Blood (NEG) Urine Nitrite (NEG) Ur Leukocyte Esterase (NEG) Urine Test (NEGATIVE) Urine Opiates Screen (Not Detect) Ur Barbiturates Screen (Not Detect) Ur Phencyclidine Scrn (Not Detect) Ur Amphetamines Screen (Not Detect) U Benzodiazepines Scrn (Not Detect) Urine Cocaine Screen (Not Detect) U Marijuana (THC) Screen (Not Detect) COVID-19 ([facility]) (Negative) COVID-19 Clin Com ECG Data Attestation: I personally reviewed and interpreted this ECG as follows: ECG interpretation date: 11/05/20 ECG interpretation time: 11:24 Interpretation: sinus tachycardia, HR 101, non-specific t-wave abnormality, prolonged QTc 503 ms, normal AK interval Critical Care Time Critical Care Time Critical Care Time: Yes Total Critical Care Time: 50 Attestation: I attest to critical care time spent caring for this patient with life threatening acute hypoxic respiratory failure. Time spent frequently reassessing the patient's respiratory status at the bedside, reviewing old records and coordinating care. Discharge Plan Discharge Clinical Impression: Asthma with status asthmaticus, Acute respiratory failure with hypoxia Patient Disposition: Admitted As Inpatient Prescriptions: No Action naltrexone 50 mg tablet 50 mg PO DAILY Qty: 30 RF: 1 dextroamphetamine-amphetamine 20 mg tablet 20 mg PO BID@0700,1600 RF: 0 ipratropium-albuterol 0.5 mg-3 mg(2.5 mg base)/3 mL Solution For Nebulization 3 ml INHALATION Q6H PRN (Reason: Respiratory Distress) RF: 0 fluticasone propion-salmeterol 113-14 mcg/actuation Aerosol Powdr Breath Activated 1 inh INHALATION BID RF: 0 montelukast [Singulair] 10 mg tablet 10 mg PO BEDTIME RF: 0 glipizide 5 mg tablet 2.5 mg PO DAILY Qty: 30 RF: 0 (DME) blood-glucose meter [Accu-Chek Guide Glucose Meter] Misc See Rx Instructions .ROUTE .MEDSUPPLY Qty: 1 RF: 0 (DME) Accu-Chek Guide test strips Strip See Rx Instructions .ROUTE .MEDSUPPLY Qty: 100 RF: 0 (DME) lancets [Accu-Chek Multiclix Lancet] Misc See Rx Instructions .ROUTE .MEDSUPPLY Qty: 100 RF: 0 alcohol swabs [Alcohol Pads] Pads, Medicated 1 pad topical DIRECTED Qty: 200 RF: 0 albuterol sulfate 90 mcg/actuation HFA aerosol inhaler 1 inh inhalation Q4H PRN (Reason: shortness of breath or wheezing) RF: 0 multivitamin Tablet 1 tab PO DAILY RF: 0 hydrochlorothiazide 25 mg Tablet 25 mg PO DAILY RF: 0 prednisone 5 mg tablet 5 mg PO DAILY RF: 0 lisinopril-hydrochlorothiazide 10-12.5 mg tablet 1 tab PO DAILY 30 Days Qty: 30 RF: 3 lorazepam 0.5 mg tablet 0.5 mg PO TID PRN (Reason: anxiety) 30 Days Qty: 30 RF: 1
[2020-11-05 10:25] LABS: COVID-19 Test Negative (Negative); IDNOW Serial# 9DD0AD1C
[2020-11-05] MEDS: guaiFENesin LA 600 MG TAB.ER.12H 1200 MG PO (10:29)
[2020-11-05] MEDS: methylPREDNISolone Sod Succ/PF 125 MG/2 ML VIAL IVPUSH (10:29)
[2020-11-05] MEDS: 0.9 % Sodium Chloride 1,000 ML 999 ML IVCONT (10:30)
[2020-11-05] MEDS: Magnesium Sulfate/H2O 2 GM/50 ML PIGGYBACK IV (10:30)
[2020-11-05] MEDS: Albuterol Sulfate (0.083%) 2.5 MG/3 ML VIAL.NEB 10 MG INHALE ×2 (10:34→12:25)
[2020-11-05 10:35] LABS: MANUAL DIFF FLAG NO
[2020-11-05] MEDS: LORazepam 0.5 MG TABLET PO ×2 (10:37→18:52)
[2020-11-05 10:38] LABS: Basophils Absolute Auto 0.1 X10*3/uL (0.0-0.2); Basophils Percent Auto 1.1 % (0-2); Eosinophils Absolute Auto 0.4 X10*3/uL (0.0-0.4); Eosinophils Percent Auto 4.9 % (0-4); Hematocrit 42.1 % (37-47); Hemoglobin 14.1 g/dl (12.0-16.0); Imm Gran Abs Auto 0.02 X10*3/uL (0.00-0.03); Imm Gran Pct Auto 0.3 % (0.0-0.4); Lymphocytes Absolute Auto 1.8 X10*3/uL (1.2-4.9); Lymphocytes Percent Auto 25.7 % (20-40); Mean Corpuscular HGB Conc 33.5 g/dl (31.0-35.0); Mean Corpuscular Hemoglobin 31.8 pg (27.0-33.0); Mean Platelet Volume 9.8 fL (9.4-12.3); Monocytes Absolute Auto 0.5 X10*3/uL (0.1-1.2); Monocytes Percent Auto 7.3 % (2-11); Neutrophils Absolute Auto 4.3 X10*3/uL (2.0-8.3); Neutrophils Percent Auto 60.7 % (45-73); Platelet Count 388 X10*3/uL (160-400); Red Blood Count 4.43 X10*6/uL (4.20-5.50); Red Cell Distribution Width 11.9 % (11.0-16.0); White Blood Count 7.1 X10*3/uL (4.8-10.8)
[2020-11-05 10:59] LABS: Lactic Acid 1.5 mmol/L (0.5-2.0)
[2020-11-05 11:01] LABS: Alanine Aminotransferase 31 U/L (0-31); Albumin Level 4.2 g/dL (3.5-5.0); Alkaline Phosphatase 78 U/L (39-117); Anion Gap 15 (12-20); Aspartate Amino Transferase 20 U/L (5-31); Bilirubin Direct 0.2 mg/dL (0.0-0.5); Bilirubin Total 0.6 mg/dL (0.0-1.0); Blood Urea Nitrogen 13 mg/dL (9-16); Calcium 9.2 mg/dL (8.4-10.2); Carbon Dioxide 24 mmol/L (22-29); Chloride 107 mmol/L (96-108); Creatinine Clr Calc Pharmacy 89.2; Estimated Glomerular Filt Rate > 60; Glucose Random 174 mg/dL (60-115); Magnesium 2.1 mg/dL (1.6-2.6); Potassium 4.5 mmol/L (3.3-5.1); Sodium 141 mmol/L (135-145); Total Protein 6.8 g/dL (6.5-8.0)
[2020-11-05 11:07] LABS: B Type Natriuretic Peptide < 10 pg/mL (<100)
[2020-11-05 11:24] LABS: Procalcitonin 0.08 ng/mL
[2020-11-05 12:24] LABS: Glucose, Whole Blood 186 mg/dL (60-115)
[2020-11-05 12:42] LABS: Glucose Urine UA NEG (NEG); Leukocyte Esterase Urine NEG (NEG); Nitrite Urine NEG (NEG); PH 5.5 (5.0-8.0); Specific Gravity - Urine >= 1.030 (1.005-1.025); Urine Blood NEG (NEG); Urine Ketones NEG (NEG); Urine Protein NEG (NEG-TRACE)
[2020-11-05 12:47] LABS: Appearance Urine CLEAR; Color Urine YELLOW; Urine Pregnancy NEGATIVE (NEGATIVE)
[2020-11-05 12:48] LABS: UPreg QC Valid YES
[2020-11-05 12:55] LABS: Amphetamine Screen Urine Not Detected (Not Detect); Barbiturates, Urine Not Detected (Not Detect); Benzodiazepines Screen Urine Not Detected (Not Detect); Cannabinoid Screen Urine POSITIVE (Not Detect); Cocaine Screen Urine Not Detected (Not Detect); Opiate Screen Urine Not Detected (Not Detect); Phencyclidine Screen Urine Not Detected (Not Detect)
--- NOTE | 2020-11-05 13:22 | PC.NURSE ---
s/p second 1 hour long pt feeling sl better but remains i/e wheezing throughout. Hospitalist at bedside for admission. sat now 93% on room air.
--- NOTE | 2020-11-05 14:20 | P.HPHOSP_ITS ---
History of Present Illness Date of Service: 11/05/20 <Carol Lopez NP - Last Filed: 11/06/20 08:44> Chief Complaint: Shortness of breath <Carol Lopez NP - Last Filed: 11/06/20 08:44> 49 year women well known to the hospitalist service, presenting with increased shortness of breath over the last several days. She has a history of uncontrolled asthma and has been using her inhalers without relief. She denied recent illness, fever, chills, tobacco use. In the ED, SHe was not noted to be hypoxic but she was tachycardic after several duoneb treatments. Her labs are within acceptable limits. She was given albuterol, solumedrol, magnesium, ativan and 1 liter of NS. She will be admitted for further management of Asthma exacerbation. <Carol Lopez NP - Last Filed: 11/06/20 08:44> Review of Systems Review of Systems: Denies any recent fever chills or decrease in appetite respiratory See HPI cardiovascular is adjustment of any PND or edema gastrointestinal denies any dysphagia abdominal pain nausea vomiting or diarrhea genitourinary denies any dysuria frequency or hematuria musculoskeletal denies any joint pain or swelling neuropsych denies any weakness or seizures all other systems reviewed are negative <Carol Lopez NP - Last Filed: 11/06/20 08:44> [facility] Medical History: Medical History ADHD Alcohol abuse Anxiety Asthma Asthma-COPD overlap syndrome Cocaine abuse COPD (chronic obstructive pulmonary disease) Epilepsy Fibromyalgia History of suicide attempt HTN (hypertension) Sleep apnea Tracheomalacia <Carol Lopez NP - Last Filed: 11/06/20 08:44> Family History: Family History Father No problems noted. Mother Cervical cancer <Carol Lopez NP - Last Filed: 11/06/20 08:44> Surgical History: Surgical History History of cholecystectomy Previous section <Carol Lopez NP - Last Filed: 11/06/20 08:44> Social History: Social History (Updated 11/05/20 @ 14:39 by Carol Lopez NP) Household Members: Spouse and Children Housing: House Alcohol intake: former Smoking Status: Former smoker Tobacco Type: Cigarette Cigarettes Per Day: 25 Years Smoked: 20 Second Hand Smoke Exposure: No Substance Use Type: Marijuana service: No Current occupational status: unemployed <Carol Lopez NP - Last Filed: 11/06/20 08:44> Meds Allergies/Adverse reactions: Allergies Allergy/AdvReac Type Severity Reaction Status Date / Time hydromorphone [From DILAUDID] Allergy Severe SEIZURES Verified 10/28/20 09:25 oxycodone [OXYCODONE] Allergy Severe SEIZURES Verified 10/28/20 09:25 gabapentin [GABAPENTIN] Allergy Intermediate MUSCLE ACHE Verified 10/28/20 09:25 bupropion [From WELLBUTRIN] Allergy Unknown SEIZURES Verified 10/28/20 09:25 phenytoin [Dilantin] Allergy Unknown Unknown Verified 10/28/20 09:25 <Carol Lopez NP - Last Filed: 11/06/20 08:44> Active Medications: Current Medications Generic Name Dose Route Start Last Admin Trade Name Freq PRN Reason Stop Dose Admin Acetaminophen 650 mg 11/05/20 13:55 Acetaminophen 325 Mg Tablet PO Q6H PRN Pain, Mild (Pain Scale 1-3) Amphetamine/Dextroamphetamine 20 mg 11/05/20 16:00 Amphetamine Mixed Salts 20 Mg Tablet PO BID@0700,1600 [facility] Glipizide 2.5 mg 11/06/20 09:00 Glipizide 5 Mg Tablet PO DAILY [facility] Hydrochlorothiazide 12.5 mg 11/06/20 09:00 Hydrochlorothiazide 12.5 Mg Tablet PO DAILY [facility] Protocol Levalbuterol HCl 1.25 mg 11/05/20 16:00 Levalbuterol Hcl 1.25 Mg/0.5 Ml Vial.Neb INHALE RQ4H WHILE AWAKE [facility] Lisinopril 10 mg 11/06/20 09:00 Lisinopril 10 Mg Tablet PO DAILY [facility] Protocol Lorazepam 0.5 mg 11/05/20 13:55 Lorazepam 0.5 Mg Tablet PO TID PRN anxiety Methylprednisolone Sodium Succinate 40 mg 11/05/20 14:00 Methylprednisolone Sod Succ/Pf 40 Mg/Ml Vial IVPUSH Q8H [facility] Montelukast Sodium 10 mg 11/05/20 21:00 Montelukast Sodium 10 Mg Tablet PO BEDTIME [facility] Multivitamins/Vitamin C 1 tab 11/06/20 09:00 Multivitamin Tablet PO DAILY [facility] Naltrexone HCl 50 mg 11/06/20 09:00 Naltrexone Hcl 50 Mg Tablet PO DAILY [facility] Ondansetron HCl 4 mg 11/05/20 13:55 Ondansetron Hcl 4 Mg/2 Ml Vial IVPUSH Q8H PRN Nausea and Vomiting Pharmacy Consult 1 each 11/05/20 09:50 Consult Rx Perform Med Rec MISCELLANE ONCE PRN Consult order Sodium Chloride 3 ml 11/05/20 16:00 0.9 % Sodium Chloride Flush 3 Ml Syringe IVFLUSH QSHIFT [facility] <Carol Lopez NP - Last Filed: 11/06/20 08:44> Home medications: Home Medications Medication Instructions Recorded Confirmed Last Taken Type dextroamphetamine-amphetamine 20 mg PO BID@0700,1600 07/26/20 11/05/20 11/05/20 History fluticasone propion-salmeterol 1 inh INHALATION BID 10/08/20 11/05/20 11/05/20 History ipratropium-albuterol 3 ml INHALATION Q6H PRN 10/08/20 11/05/20 Unknown History montelukast [Singulair] 10 mg PO BEDTIME 10/08/20 11/05/20 11/04/20 History prednisone 5 mg tablet 5 mg PO DAILY 10/28/20 11/05/20 11/05/20 History albuterol sulfate 1 inh INHALATION Q4H PRN 11/05/20 11/05/20 Unknown History multivitamin 1 tab PO DAILY 11/05/20 11/05/20 11/05/20 History <Carol Lopez NP - Last Filed: 11/06/20 08:44> Physical Exam Vital Signs and Narrative: Vital Signs: Last Vital Signs Temp 98.8 F 11/05/20 09:54 Pulse 115 H 11/05/20 13:21 Resp 16 11/05/20 13:21 BP 108/72 11/05/20 13:21 Pulse Ox 93 11/05/20 13:21 Body Mass Index 36.6 <Carol Lopez NP - Last Filed: 11/06/20 08:44> Results Labs CBC and Chem 7: : 11/06/20 06:02 11/06/20 06:02 <Carol Lopez NP - Last Filed: 11/06/20 08:44> Labs: Laboratory Results - last 24 hr 11/05/20 11/05/20 11/05/20 10:02 10:18 10:18 MCV 95.0 MCH 31.8 MCHC 33.5 RDW 11.9 Plt Count 388 MPV 9.8 Immature Gran % (Auto) 0.3 Neut % (Auto) 60.7 Lymph % (Auto) 25.7 [place] % (Auto) 7.3 Eos % (Auto) 4.9 H Baso % (Auto) 1.1 Lymph # (Auto) 1.8 [place] # (Auto) 0.5 Eos # (Auto) 0.4 Baso # (Auto) 0.1 Abs Immat Gran (auto) 0.02 Absolute Neuts (auto) 4.3 Absolute Nucleated RBC 0.000 Nucleated RBC % (auto) 0.0 Hold Blue Top Anion Gap 15 Estim Creat Clear Calc 89.2 Estimated GFR > 60 POC Glucose Random Glucose 174 H Lactic Acid Calcium 9.2 Magnesium 2.1 Total Bilirubin 0.6 Direct Bilirubin 0.2 AST 20 ALT 31 Alkaline Phosphatase 78 B-Natriuretic Peptide Total Protein 6.8 Albumin 4.2 Procalcitonin Urine Color Urine Appearance Urine pH Ur Specific [place] Urine Protein Urine Glucose (UA) Urine Ketones Urine Blood Urine Nitrite Ur Leukocyte Esterase Urine Test Urine Opiates Screen Ur Barbiturates Screen Ur Phencyclidine Scrn Ur Amphetamines Screen U Benzodiazepines Scrn Urine Cocaine Screen U Marijuana (THC) Screen COVID-19 ([facility]) Negative COVID-19 Clin Com See Note 11/05/20 11/05/20 11/05/20 10:18 10:18 10:18 MCV MCH MCHC RDW Plt Count MPV Immature Gran % (Auto) Neut % (Auto) Lymph % (Auto) [place] % (Auto) Eos % (Auto) Baso % (Auto) Lymph # (Auto) [place] # (Auto) Eos # (Auto) Baso # (Auto) Abs Immat Gran (auto) Absolute Neuts (auto) Absolute Nucleated RBC Nucleated RBC % (auto) Hold Blue Top SEE NOTE Anion Gap Estim Creat Clear Calc Estimated GFR POC Glucose Random Glucose Lactic Acid 1.5 Calcium Magnesium Total Bilirubin Direct Bilirubin AST ALT Alkaline Phosphatase B-Natriuretic Peptide < 10 Total Protein Albumin Procalcitonin Urine Color Urine Appearance Urine pH Ur Specific [place] Urine Protein Urine Glucose (UA) Urine Ketones Urine Blood Urine Nitrite Ur Leukocyte Esterase Urine Test Urine Opiates Screen Ur Barbiturates Screen Ur Phencyclidine Scrn Ur Amphetamines Screen U Benzodiazepines Scrn Urine Cocaine Screen U Marijuana (THC) Screen COVID-19 ([facility]) COVID-19 Clin Com 11/05/20 11/05/20 11/05/20 10:18 12:14 12:14 MCV MCH MCHC RDW Plt Count MPV Immature Gran % (Auto) Neut % (Auto) Lymph % (Auto) [place] % (Auto) Eos % (Auto) Baso % (Auto) Lymph # (Auto) [place] # (Auto) Eos # (Auto) Baso # (Auto) Abs Immat Gran (auto) Absolute Neuts (auto) Absolute Nucleated RBC Nucleated RBC % (auto) Hold Blue Top Anion Gap Estim Creat Clear Calc Estimated GFR POC Glucose Random Glucose Lactic Acid Calcium Magnesium Total Bilirubin Direct Bilirubin AST ALT Alkaline Phosphatase B-Natriuretic Peptide Total Protein Albumin Procalcitonin 0.08 Urine Color YELLOW Urine Appearance CLEAR Urine pH 5.5 Ur Specific [place] >= 1.030 H Urine Protein NEG Urine Glucose (UA) NEG Urine Ketones NEG Urine Blood NEG Urine Nitrite NEG Ur Leukocyte Esterase NEG Urine Test NEGATIVE Urine Opiates Screen Not Detected Ur Barbiturates Screen Not Detected Ur Phencyclidine Scrn Not Detected Ur Amphetamines Screen Not Detected U Benzodiazepines Scrn Not Detected Urine Cocaine Screen Not Detected U Marijuana (THC) Screen POSITIVE H COVID-19 ([facility]) COVID-19 [facility] Com 11/05/20 12:21 MCV MCH MCHC RDW Plt Count MPV Immature Gran % (Auto) Neut % (Auto) Lymph % (Auto) [place] % (Auto) Eos % (Auto) Baso % (Auto) Lymph # (Auto) [place] # (Auto) Eos # (Auto) Baso # (Auto) Abs Immat Gran (auto) Absolute Neuts (auto) Absolute Nucleated RBC Nucleated RBC % (auto) Hold Blue Top Anion Gap Estim Creat Clear Calc Estimated GFR POC Glucose 186 H Random Glucose Lactic Acid Calcium Magnesium Total Bilirubin Direct Bilirubin AST ALT Alkaline Phosphatase B-Natriuretic Peptide Total Protein Albumin Procalcitonin Urine Color Urine Appearance Urine pH Ur Specific [place] Urine Protein Urine Glucose (UA) Urine Ketones Urine Blood Urine Nitrite Ur Leukocyte Esterase Urine Test Urine Opiates Screen Ur Barbiturates Screen Ur Phencyclidine Scrn Ur Amphetamines Screen U Benzodiazepines Scrn Urine Cocaine Screen U Marijuana (THC) Screen COVID-19 ([facility]) COVID-19 Clin Com <Carol Lopez NP - Last Filed: 11/06/20 08:44> Imaging Radiologist's Impressions: Impressions Chest X-Ray 11/05/20 09:19 IMPRESSION: No acute cardiopulmonary process. <Carol Lopez NP - Last Filed: 11/06/20 08:44> Assessment and Plan (1) Asthma with status asthmaticus: Qualifiers: Asthma persistence: persistent Asthma severity: severe Qualified Code(s): J45.52 - Severe persistent asthma with status asthmaticus <Carol Lopez NP - Last Filed: 11/06/20 08:44> Status: Acute <Carol Lopez NP - Last Filed: 11/06/20 08:44> 49 year old women admitted with acute asthma exacerbation. Asthma exacerbation. Solumedrol, levalbuterol. Supplemental oxygen as needed. HTN. Stable. Continue HCTZ. Anxiety. Continue ativan. ADHD. Adderall DVT prophyalxis with Lovenox. Discussed with Dr. Fernandez Full code <Carol Lopez NP - Last Filed: 11/06/20 08:44>
[2020-11-05 14:49] LABS: Adenovirus PCR Not Detected (Not Detect.); Bordetella parapertussis PCR Not Detected (Not Detect.); Bordetella pertussis PCR Not Detected (Not Detect.); Chlamydia pneumoniae PCR Not Detected (Not Detect.); Coronavirus 229E PCR Not Detected (Not Detect.); Coronavirus HKU1 PCR Not Detected (Not Detect.); Coronavirus NL63 PCR Not Detected (Not Detect.); Coronavirus OC43 PCR Not Detected (Not Detect.); Human metapneumovirus PCR Not Detected (Not Detect.); Influenza A PCR Not Detected (Not Detect.); Influenza B PCR Not Detected (Not Detect.); Mycoplasma pneumoniae PCR Not Detected (Not Detect.); Parainfluenza 1 PCR Not Detected (Not Detect.); Parainfluenza 2 PCR Not Detected (Not Detect.); Parainfluenza 3 PCR Not Detected (Not Detect.); Parainfluenza 4 PCR Not Detected (Not Detect.); RSV PCR Not Detected (Not Detect.); Rhino/Enterovirus PCR Not Detected (Not Detect.); SARS-CoV-2 PCR Not Detected (Not Detect.)
[2020-11-05] MEDS: 0.9 % Sodium Chloride Flush 3 ML SYRINGE IVFLUSH (15:07)
--- NOTE | 2020-11-05 15:34 | PM.EVENT ---
Event Note Date of Service: 11/06/20 Event Note: 49-year-old female presented with shortness of breath And wheezing and wheezing known history of asthma, patient received nebulizer treatment still wheezy and short of breath with some improvement patient seen and examined at bedside on exam alert abdomen soft CVS rate and rhythm regular lungs bilateral wheezing decreased air entry admitted with asthma exacerbation continue oxygen supplementation nebulizer treatment and IV steroids, COVID PCR negative Patient seen and examined with the midlevel agree with H&P assessment and plan
[2020-11-05] MEDS: guaiFENesin DM 100/10/5 ML 5 ML SYRUP PO (16:06)
[2020-11-05] MEDS: Amphetamine Mixed Salts 20 MG TABLET PO (16:06)
--- NOTE | 2020-11-05 20:55 | MHC.CM.PN ---
CM met with patient. Hx severe persistent asthma. Has been hospitalized many times. HCP/ Willi Rich ([phone]). HCP Verified and on file. D/C plan is home without services. to transport. CM to follow for d/c needs
[2020-11-05] MEDS: Montelukast Sodium 10 MG TABLET PO (23:10)
[2020-11-06] VITALS (11 sets, daily range): BP systolic 120–145; BP diastolic 62–81; PULSE 95–120; RESP 14–21; TEMP 36.2–37.4; O2SAT 90–95
[2020-11-06] MEDS: LORazepam 0.5 MG TABLET PO ×3 (00:24→22:02)
[2020-11-06] MEDS: 0.9 % Sodium Chloride Flush 3 ML SYRINGE IVFLUSH ×4 (00:48→22:03)
[2020-11-06] MEDS: Amphetamine Mixed Salts 20 MG TABLET PO ×2 (06:06→16:52)
[2020-11-06 06:33] LABS: MANUAL DIFF FLAG NO
[2020-11-06 07:00] LABS: Basophils Percent Auto 0.1 % (0-2); Hematocrit 37.3 % (37-47); Hemoglobin 12.3 g/dl (12.0-16.0); Imm Gran Abs Auto 0.05 X10*3/uL (0.00-0.03); Imm Gran Pct Auto 0.4 % (0.0-0.4); Lymphocytes Percent Auto 7.2 % (20-40); Mean Corpuscular Hemoglobin 31.7 pg (27.0-33.0); Mean Corpuscular Volume 96.1 fL (80-98); Mean Platelet Volume 10.1 fL (9.4-12.3); Monocytes Absolute Auto 0.4 X10*3/uL (0.1-1.2); Monocytes Percent Auto 3.1 % (2-11); Neutrophils Absolute Auto 12.1 X10*3/uL (2.0-8.3); Neutrophils Percent Auto 89.2 % (45-73); Platelet Count 399 X10*3/uL (160-400); Red Blood Count 3.88 X10*6/uL (4.20-5.50); Red Cell Distribution Width 12.1 % (11.0-16.0); White Blood Count 13.5 X10*3/uL (4.8-10.8)
[2020-11-06 07:16] LABS: Anion Gap 16 (12-20); Blood Urea Nitrogen 13 mg/dL (9-16); Carbon Dioxide 22 mmol/L (22-29); Chloride 107 mmol/L (96-108); Estimated Glomerular Filt Rate > 60; Glucose Random 232 mg/dL (60-115); Potassium 4.5 mmol/L (3.3-5.1); Sodium 140 mmol/L (135-145)
[2020-11-06] MEDS: glipiZIDE 5 MG TABLET 2.5 MG PO (07:43)
[2020-11-06] MEDS: guaiFENesin DM 100/10/5 ML 5 ML SYRUP PO (07:43)
[2020-11-06] MEDS: hydroCHLOROthiazide 12.5 MG TABLET PO (07:45)
[2020-11-06] MEDS: Naltrexone HCl 50 MG TABLET PO (07:45)
[2020-11-06] MEDS: Multivitamin TABLET 1 TAB PO (07:51)
--- NOTE | 2020-11-06 08:40 | HO.PM.IMPN ---
Subjective Subjective Date of Service: 11/06/20 Interval History: Follow up asthma exacerbation. Looks better today, Still wheezy and tight Physical Exam Vital Signs: Vital Signs: Last Vital Signs Temp 97.1 F 11/06/20 07:42 Pulse 101 H 11/06/20 07:42 Resp 21 H 11/06/20 07:42 BP 125/70 11/06/20 07:42 Pulse Ox 93 11/06/20 07:42 Body Mass Index 36.6 Appearing in no acute distress head is normocephalic atraumatic eyes pupils are PERRLA sclera is anicteric mouth throat mucous membranes are intact and moist neck is supple no lymphadenopathy, no JVD noted lung sounds exp wheezing heart regular rate rhythm positive bowel sounds, abdomen is soft, nontender neuro patient is alert x3, no focal deficits Objective Data Current Medications Generic Name Dose Route Start Last Admin Trade Name Freq PRN Reason Stop Dose Admin Acetaminophen 650 mg 11/05/20 13:55 Acetaminophen 325 Mg Tablet PO Q6H PRN Pain, Mild (Pain Scale 1-3) Amphetamine/Dextroamphetamine 20 mg 11/05/20 16:00 11/06/20 06:06 Amphetamine Mixed Salts 20 Mg Tablet PO 20 mg BID@0700,1600 [facility] Administration Glipizide 2.5 mg 11/06/20 09:00 11/06/20 07:43 Glipizide 5 Mg Tablet PO 2.5 mg DAILY [facility] Administration Guaifenesin/Dextromethorphan 5 ml 11/05/20 15:47 11/06/20 07:43 Guaifenesin Dm 100/10/5 Ml 5 Ml Syrup PO 5 ml Q4H PRN Administration cough Hydrochlorothiazide 12.5 mg 11/06/20 09:00 11/06/20 07:45 Hydrochlorothiazide 12.5 Mg Tablet PO 12.5 mg DAILY [facility] Administration Protocol Levalbuterol HCl 1.25 mg 11/05/20 16:00 11/06/20 07:16 Levalbuterol Hcl 1.25 Mg/0.5 Ml Vial.Neb INHALE 1.25 mg RQ4H WHILE AWAKE [facility] Administration Lisinopril 10 mg 11/06/20 09:00 11/06/20 07:51 Lisinopril 10 Mg Tablet PO 10 mg DAILY [facility] Administration Protocol Lorazepam 0.5 mg 11/05/20 13:55 11/06/20 00:24 Lorazepam 0.5 Mg Tablet PO 0.5 mg TID PRN Administration anxiety Methylprednisolone Sodium Succinate 40 mg 11/05/20 14:00 11/06/20 06:06 Methylprednisolone Sod Succ/Pf 40 Mg/Ml Vial IVPUSH 40 mg Q8H [facility] Administration Montelukast Sodium 10 mg 11/05/20 21:00 11/05/20 23:10 Montelukast Sodium 10 Mg Tablet PO 10 mg BEDTIME [facility] Administration Multivitamins/Vitamin C 1 tab 11/06/20 09:00 11/06/20 07:51 Multivitamin Tablet PO 1 tab DAILY [facility] Administration Naltrexone HCl 50 mg 11/06/20 09:00 11/06/20 07:45 Naltrexone Hcl 50 Mg Tablet PO 50 mg DAILY [facility] Administration Ondansetron HCl 4 mg 11/05/20 13:55 Ondansetron Hcl 4 Mg/2 Ml Vial IVPUSH Q8H PRN Nausea and Vomiting Pharmacy Consult 1 each 11/05/20 09:50 Consult Rx Perform Med Rec MISCELLANE ONCE PRN Consult order Sodium Chloride 3 ml 11/05/20 16:00 11/06/20 07:45 0.9 % Sodium Chloride Flush 3 Ml Syringe IVFLUSH 3 ml QSHIFT [facility] Administration Labs CBC & Chem 7: 11/06/20 06:02 11/06/20 06:02 Assessment and Plan (1) Asthma with status asthmaticus: Status: Acute Assessment and Plan: 49 year old women admitted with acute asthma exacerbation. Asthma exacerbation. Better today but still wheezing and tight. -Continue Solumedrol, levalbuterol. -Supplemental oxygen as needed. -Add Mucinex for dry barky cough -Likely discharge tomorrow with oral steroids. HTN. Stable. Continue HCTZ. Anxiety. Continue ativan. ADHD. Adderall DVT prophyalxis with Lovenox.
[2020-11-06] MEDS: guaiFENesin LA 600 MG TAB.ER.12H PO ×2 (10:38→22:02)
--- NOTE | 2020-11-06 11:07 | MHC.CM.PN ---
Addendum entered by Eunice Mendoza RN 11/06/20 14:36: CM MET WITH PT TO VERIFY IF PT HAS NEBULIZER AT HOME IN CASE NEB TX'S ARE ORDERED, PT REPORTS SHE DOES HAVE A NEBULIZER AT HOME. Original Note: PER MULTIDISCIPLINARY ROUNDS PT WILL NEED ONE MORE DAY OF NEBULIZER TX'S AND ANTICIPATED D/C Monday11/07/20, PLAN CON'T TO BE HOME W/NO SERVICES, FOR TRANSPORT.
[2020-11-06 11:42] LABS: Glucose, Whole Blood 256 mg/dL (60-115)
[2020-11-06] MEDS: Insulin Lispro 100 UNIT/ML 3 ML VIAL SUBCUT ×3 (12:18→22:02)
--- NOTE | 2020-11-06 13:00 | MHC.RECOVRN ---
Recovery Support Note: T/w met with pt for recovery support. During a prior admission, pt had been started on naltrexone for AUD. Pt states I don't have any cravings, I don't even think about it. That medication works. Pt continues to state I'm even at the point where I can drive by a liquor store and my car doesn't automatically go in. I feel great. On Monday it will be 1 month since I last drank. Pt denies needing any additional supports, is currently seeing providers at [facility]. Pt plans to continue both counseling and naltrexone.
[2020-11-06] MEDS: Enoxaparin Sodium 40 MG/0.4 ML SYRINGE SUBCUT (13:18)
[2020-11-06 16:37] LABS: Glucose, Whole Blood 226 mg/dL (60-115)
[2020-11-06 20:40] LABS: Glucose, Whole Blood 210 mg/dL (60-115)
[2020-11-06] MEDS: Montelukast Sodium 10 MG TABLET PO (22:02)
[2020-11-06] MEDS: guaiFEN/Codeine SF 200/20/10ML 10 ML LIQUID 5 ML PO (22:48)
[2020-11-07] VITALS (9 sets, daily range): BP systolic 100–142; BP diastolic 57–83; PULSE 79–111; RESP 16–20; TEMP 36–36.7; O2SAT 91–98
[2020-11-07 08:10] LABS: Glucose, Whole Blood 215 mg/dL (60-115)
[2020-11-07] MEDS: Naltrexone HCl 50 MG TABLET PO (08:58)
[2020-11-07] MEDS: glipiZIDE 5 MG TABLET 2.5 MG PO (08:58)
[2020-11-07] MEDS: 0.9 % Sodium Chloride Flush 3 ML SYRINGE IVFLUSH ×3 (08:58→20:55)
[2020-11-07] MEDS: Amphetamine Mixed Salts 20 MG TABLET PO ×2 (08:58→15:57)
[2020-11-07] MEDS: guaiFENesin LA 600 MG TAB.ER.12H PO ×2 (08:58→20:54)
[2020-11-07] MEDS: hydroCHLOROthiazide 12.5 MG TABLET PO (08:58)
[2020-11-07] MEDS: Multivitamin TABLET 1 TAB PO (08:58)
[2020-11-07] MEDS: Insulin Lispro 100 UNIT/ML 3 ML VIAL SUBCUT ×4 (08:59→20:55)
[2020-11-07] MEDS: guaiFEN/Codeine SF 200/20/10ML 10 ML LIQUID 5 ML PO ×3 (09:05→22:02)
--- NOTE | 2020-11-07 11:18 | HO.PM.IMPN ---
Subjective Subjective Date of Service: 11/07/20 Interval History: patient seen and examined at bedside patient still reporting short of breath and wheezy Review of Systems Denies any recent fever chills or decrease in appetite respiratory See HPI cardiovascular is adjustment of any PND or edema gastrointestinal denies any dysphagia abdominal pain nausea vomiting or diarrhea genitourinary denies any dysuria frequency or hematuria musculoskeletal denies any joint pain or swelling neuropsych denies any weakness or seizures all other systems reviewed are negative Physical Exam Vital Signs: Vital Signs: Last Vital Signs Temp 97.1 F 11/07/20 08:00 Pulse 88 11/07/20 11:15 Resp 20 11/07/20 08:00 BP 140/71 H 11/07/20 08:00 Pulse Ox 91 L 11/07/20 08:00 Body Mass Index 36.6 Objective Data Current Medications Generic Name Dose Route Start Last Admin Trade Name Freq PRN Reason Stop Dose Admin Acetaminophen 650 mg 11/05/20 13:55 Acetaminophen 325 Mg Tablet PO Q6H PRN Pain, Mild (Pain Scale 1-3) Amphetamine/Dextroamphetamine 20 mg 11/05/20 16:00 11/07/20 08:58 Amphetamine Mixed Salts 20 Mg Tablet PO 20 mg BID@0700,1600 [facility] Administration Enoxaparin Sodium 40 mg 11/06/20 13:00 11/06/20 13:18 Enoxaparin Sodium 40 Mg/0.4 Ml Syringe SUBCUT 40 mg Q24H [facility] Administration Glipizide 2.5 mg 11/06/20 09:00 11/07/20 08:58 Glipizide 5 Mg Tablet PO 2.5 mg DAILY [facility] Administration Guaifenesin 600 mg 11/06/20 09:00 11/07/20 08:58 Guaifenesin [place] 600 Mg Tab.Er.12h PO 600 mg BID [facility] Administration Guaifenesin/Codeine Phosphate 5 ml 11/06/20 22:23 11/07/20 09:05 Guaifen/Codeine Sf 200/20/10ml 10 Ml Liquid PO 5 ml Q6H PRN Administration Cough Hydrochlorothiazide 12.5 mg 11/06/20 09:00 11/07/20 08:58 Hydrochlorothiazide 12.5 Mg Tablet PO 12.5 mg DAILY [facility] Administration Protocol Insulin Human Lispro 0 unit 11/06/20 11:30 11/07/20 08:59 Insulin Lispro 100 Unit/Ml 3 Ml Vial SUBCUT 4 unit QIDACHS [facility] Administration Protocol Levalbuterol HCl 1.25 mg 11/05/20 16:00 11/07/20 11:13 Levalbuterol Hcl 1.25 Mg/0.5 Ml Vial.Neb INHALE 1.25 mg RQ4H WHILE AWAKE [facility] Administration Lisinopril 10 mg 11/06/20 09:00 11/07/20 08:58 Lisinopril 10 Mg Tablet PO 10 mg DAILY [facility] Administration Protocol Lorazepam 0.5 mg 11/05/20 13:55 11/06/20 22:02 Lorazepam 0.5 Mg Tablet PO 0.5 mg TID PRN Administration anxiety Methylprednisolone Sodium Succinate 40 mg 11/06/20 13:00 11/07/20 06:08 Methylprednisolone Sod Succ/Pf 40 Mg/Ml Vial IVPUSH 40 mg Q8H [facility] Administration Montelukast Sodium 10 mg 11/05/20 21:00 11/06/20 22:02 Montelukast Sodium 10 Mg Tablet PO 10 mg BEDTIME [facility] Administration Multivitamins/Vitamin C 1 tab 11/06/20 09:00 11/07/20 08:58 Multivitamin Tablet PO 1 tab DAILY [facility] Administration Naltrexone HCl 50 mg 11/06/20 09:00 11/07/20 08:58 Naltrexone Hcl 50 Mg Tablet PO 50 mg DAILY [facility] Administration Ondansetron HCl 4 mg 11/05/20 13:55 Ondansetron Hcl 4 Mg/2 Ml Vial IVPUSH Q8H PRN Nausea and Vomiting Pharmacy Consult 1 each 11/05/20 09:50 Consult Rx Perform Med Rec MISCELLANE ONCE PRN Consult order Sodium Chloride 3 ml 11/05/20 16:00 11/07/20 08:58 0.9 % Sodium Chloride Flush 3 Ml Syringe IVFLUSH 3 ml QSHIFT [facility] Administration Labs CBC & Chem 7: 11/06/20 06:02 11/06/20 06:02 Microbiology Microbiology Results: Microbiology 11/05/20 12:18 Blood - Venous Blood Culture - Preliminary No growth after 24 hours. 11/05/20 10:18 Blood - Venous Blood Culture - Preliminary No growth after 24 hours. Assessment and Plan (1) Asthma with status asthmaticus: Status: Acute Assessment and Plan: 49 year old women admitted with acute asthma exacerbation. Asthma exacerbation still tight and wheezy little improvement continue Solumedrol, continuelevalbuterol. continueSupplemental oxygen as needed. HTN. Stable. Continue HCTZ. Anxiety. Continue ativan. ADHD. Adderall DVT prophyalxis with Lovenox.
[2020-11-07 11:31] LABS: Glucose, Whole Blood 179 mg/dL (60-115)
[2020-11-07] MEDS: Enoxaparin Sodium 40 MG/0.4 ML SYRINGE SUBCUT (12:37)
[2020-11-07] MEDS: LORazepam 0.5 MG TABLET PO ×2 (12:38→19:34)
[2020-11-07 16:44] LABS: Glucose, Whole Blood 341 mg/dL (60-115)
[2020-11-07 20:24] LABS: Glucose, Whole Blood 176 mg/dL (60-115)
[2020-11-07] MEDS: Montelukast Sodium 10 MG TABLET PO (20:54)
[2020-11-08] VITALS (12 sets, daily range): BP systolic 116–161; BP diastolic 63–88; PULSE 80–115; RESP 16–20; TEMP 35.7–37; O2SAT 91–94
[2020-11-08 08:18] LABS: Glucose, Whole Blood 184 mg/dL (60-115)
[2020-11-08] MEDS: Amphetamine Mixed Salts 20 MG TABLET PO ×2 (08:32→16:58)
[2020-11-08] MEDS: Multivitamin TABLET 1 TAB PO (08:32)
[2020-11-08] MEDS: guaiFENesin LA 600 MG TAB.ER.12H PO ×2 (08:32→22:09)
[2020-11-08] MEDS: Naltrexone HCl 50 MG TABLET PO (08:32)
[2020-11-08] MEDS: Insulin Lispro 100 UNIT/ML 3 ML VIAL SUBCUT ×4 (08:32→22:09)
[2020-11-08] MEDS: 0.9 % Sodium Chloride Flush 3 ML SYRINGE IVFLUSH ×2 (08:33→16:58)
[2020-11-08] MEDS: glipiZIDE 5 MG TABLET 2.5 MG PO (08:33)
[2020-11-08] MEDS: hydroCHLOROthiazide 12.5 MG TABLET PO (08:33)
[2020-11-08 11:30] LABS: Glucose, Whole Blood 277 mg/dL (60-115)
[2020-11-08] MEDS: Enoxaparin Sodium 40 MG/0.4 ML SYRINGE SUBCUT (12:07)
--- NOTE | 2020-11-08 13:16 | HO.PM.IMPN ---
Subjective Subjective Date of Service: 11/08/20 Interval History: patient seen and examined at bedside patient still reporting short of breath and wheezy with slow improvement Review of Systems Denies any recent fever chills or decrease in appetite respiratory See HPI cardiovascular is adjustment of any PND or edema gastrointestinal denies any dysphagia abdominal pain nausea vomiting or diarrhea genitourinary denies any dysuria frequency or hematuria musculoskeletal denies any joint pain or swelling neuropsych denies any weakness or seizures all other systems reviewed are negative Physical Exam Vital Signs: Vital Signs: Last Vital Signs Temp 97.3 F 11/08/20 12:00 Pulse 104 H 11/08/20 12:00 Resp 19 11/08/20 12:00 BP 161/79 H 11/08/20 12:00 Pulse Ox 91 L 11/08/20 12:00 Body Mass Index 36.6 Objective Data Current Medications Generic Name Dose Route Start Last Admin Trade Name Freq PRN Reason Stop Dose Admin Acetaminophen 650 mg 11/05/20 13:55 Acetaminophen 325 Mg Tablet PO Q6H PRN Pain, Mild (Pain Scale 1-3) Amphetamine/Dextroamphetamine 20 mg 11/05/20 16:00 11/08/20 08:32 Amphetamine Mixed Salts 20 Mg Tablet PO 20 mg BID@0700,1600 [facility] Administration Enoxaparin Sodium 40 mg 11/06/20 13:00 11/08/20 12:07 Enoxaparin Sodium 40 Mg/0.4 Ml Syringe SUBCUT 40 mg Q24H [facility] Administration Glipizide 2.5 mg 11/06/20 09:00 11/08/20 08:33 Glipizide 5 Mg Tablet PO 2.5 mg DAILY [facility] Administration Guaifenesin 600 mg 11/06/20 09:00 11/08/20 08:32 Guaifenesin [place] 600 Mg Tab.Er.12h PO 600 mg BID [facility] Administration Guaifenesin/Codeine Phosphate 5 ml 11/06/20 22:23 11/07/20 22:02 Guaifen/Codeine Sf 200/20/10ml 10 Ml Liquid PO 5 ml Q6H PRN Administration Cough Hydrochlorothiazide 12.5 mg 11/06/20 09:00 11/08/20 08:33 Hydrochlorothiazide 12.5 Mg Tablet PO 12.5 mg DAILY [facility] Administration Protocol Insulin Human Lispro 0 unit 11/06/20 11:30 11/08/20 12:07 Insulin Lispro 100 Unit/Ml 3 Ml Vial SUBCUT 6 unit QIDACHS [facility] Administration Protocol Levalbuterol HCl 1.25 mg 11/05/20 16:00 11/08/20 11:09 Levalbuterol Hcl 1.25 Mg/0.5 Ml Vial.Neb INHALE 1.25 mg RQ4H WHILE AWAKE [facility] Administration Lisinopril 10 mg 11/06/20 09:00 11/08/20 08:33 Lisinopril 10 Mg Tablet PO 10 mg DAILY [facility] Administration Protocol Lorazepam 0.5 mg 11/05/20 13:55 11/07/20 19:34 Lorazepam 0.5 Mg Tablet PO 0.5 mg TID PRN Administration anxiety Methylprednisolone Sodium Succinate 40 mg 11/06/20 13:00 11/08/20 12:07 Methylprednisolone Sod Succ/Pf 40 Mg/Ml Vial IVPUSH 40 mg Q8H [facility] Administration Montelukast Sodium 10 mg 11/05/20 21:00 11/07/20 20:54 Montelukast Sodium 10 Mg Tablet PO 10 mg BEDTIME [facility] Administration Multivitamins/Vitamin C 1 tab 11/06/20 09:00 11/08/20 08:32 Multivitamin Tablet PO 1 tab DAILY [facility] Administration Naltrexone HCl 50 mg 11/06/20 09:00 11/08/20 08:32 Naltrexone Hcl 50 Mg Tablet PO 50 mg DAILY [facility] Administration Ondansetron HCl 4 mg 11/05/20 13:55 Ondansetron Hcl 4 Mg/2 Ml Vial IVPUSH Q8H PRN Nausea and Vomiting Pharmacy Consult 1 each 11/05/20 09:50 Consult Rx Perform Med Rec MISCELLANE ONCE PRN Consult order Sodium Chloride 3 ml 11/05/20 16:00 11/08/20 08:33 0.9 % Sodium Chloride Flush 3 Ml Syringe IVFLUSH 3 ml QSHIFT [facility] Administration Labs CBC & Chem 7: 11/06/20 06:02 11/06/20 06:02 Microbiology Microbiology Results: Microbiology 11/05/20 12:18 Blood - Venous Blood Culture - Preliminary No growth after 48 hours. 11/05/20 10:18 Blood - Venous Blood Culture - Preliminary No growth after 48 hours. Assessment and Plan (1) Asthma with status asthmaticus: Status: Acute Assessment and Plan: 49 year old women admitted with acute asthma exacerbation. Asthma exacerbation still tight and wheezy slow improvement continue Solumedrol, continue levalbuterol. continue Supplemental oxygen as needed. HTN. Stable. Continue HCTZ. Anxiety. Continue ativan. ADHD. Adderall DVT prophyalxis with Lovenox.
[2020-11-08] MEDS: guaiFEN/Codeine SF 200/20/10ML 10 ML LIQUID 5 ML PO ×2 (14:11→21:23)
[2020-11-08 16:45] LABS: Glucose, Whole Blood 217 mg/dL (60-115)
[2020-11-08] MEDS: Acetaminophen 325 MG TABLET 650 MG PO (17:54)
[2020-11-08 20:53] LABS: Glucose, Whole Blood 270 mg/dL (60-115)
[2020-11-08] MEDS: Montelukast Sodium 10 MG TABLET PO (22:09)
[2020-11-08] MEDS: LORazepam 0.5 MG TABLET PO (22:12)
[2020-11-09] MEDS: 0.9 % Sodium Chloride Flush 3 ML SYRINGE IVFLUSH ×2 (01:56→09:40)
[2020-11-09 04:00] VITALS: BP 136/76; PULSE 76; RESP 16; TEMP 36.6; O2SAT 96
[2020-11-09 07:58] LABS: Glucose, Whole Blood 174 mg/dL (60-115)
[2020-11-09 08:00] VITALS: BP 115/74; PULSE 82; RESP 16; TEMP 36.1; O2SAT 93
[2020-11-09 08:13] VITALS: PULSE 90; O2SAT 95
[2020-11-09] MEDS: Multivitamin TABLET 1 TAB PO (09:38)
[2020-11-09] MEDS: hydroCHLOROthiazide 12.5 MG TABLET PO (09:38)
[2020-11-09] MEDS: guaiFENesin LA 600 MG TAB.ER.12H PO (09:38)
[2020-11-09] MEDS: Naltrexone HCl 50 MG TABLET PO (09:39)
[2020-11-09] MEDS: glipiZIDE 5 MG TABLET 2.5 MG PO (09:39)
[2020-11-09] MEDS: Amphetamine Mixed Salts 20 MG TABLET PO (09:39)
[2020-11-09] MEDS: LORazepam 0.5 MG TABLET PO (09:39)
--- NOTE | 2020-11-09 10:55 | PM.DS ---
DS: Providers Provider Date of Service: 11/09/20 Date of admission: 11/05/20 13:55 Primary care physician: Jaison Navarrete PA-C DS: Diagnosis Discharge Diagnosis (1) Acute respiratory failure with hypoxia: Status: Acute (2) Acute asthma exacerbation: Status: Acute DS: Medications Discharge Medications Home Medications: Home Medications Medication Instructions Recorded Confirmed dextroamphetamine-amphetamine 20 mg PO BID@0700,1600 07/26/20 11/05/20 fluticasone propion-salmeterol 1 inh INHALATION BID 10/08/20 11/05/20 ipratropium-albuterol 3 ml INHALATION Q6H PRN 10/08/20 11/05/20 montelukast [Singulair] 10 mg PO BEDTIME 10/08/20 11/05/20 prednisone 5 mg tablet 5 mg PO DAILY 10/28/20 11/05/20 multivitamin 1 tab PO DAILY 11/05/20 11/05/20 Previous Rx's Medication Instructions Recorded lorazepam 0.5 mg tablet 0.5 mg PO TID PRN 30 Days #30 tab 08/11/20 naltrexone 50 mg tablet 50 mg PO DAILY #30 tab 10/09/20 Accu-Chek Guide test strips #100 ea 10/11/20 alcohol swabs [Alcohol Pads] 1 pad TOPICAL DIRECTED #200 ea 10/11/20 blood-glucose meter [Accu-Chek #1 ea 10/11/20 Guide Glucose Meter] glipizide 2.5 mg PO DAILY #30 tab 10/11/20 lancets [Accu-Chek Multiclix #100 ea 10/11/20 Lancet] lisinopril 10 1 tab PO DAILY 30 Days #30 tab 10/28/20 mg-hydrochlorothiazide 12.5 mg tablet albuterol sulfate 1 inh INHALATION Q4H PRN #1 ea 11/09/20 codeine-guaifenesin 5 ml PO Q6H PRN #100 ml 11/09/20 prednisone 40 mg PO DAILY #20 tab 11/09/20 DS: Summary Hospital Course Hospital Course: HPI 49 year women well known to the hospitalist service, presenting with increased shortness of breath over the last several days. She has a history of uncontrolled asthma and has been using her inhalers without relief. She denied recent illness, fever, chills, tobacco use. In the ED, SHe was not noted to be hypoxic but she was tachycardic after several duoneb treatments. Her labs are within acceptable limits. She was given albuterol, solumedrol, magnesium, ativan and 1 liter of NS. She will be admitted for further management of Asthma exacerbation. <Carol Lopez NP - Last Filed: 11/06/20 08:44> Hospital course 49-year-old female admitted with asthma exacerbation and acute hypoxic respiratory failure patient was started on IV Solu-Medrol nebulizer treatment and oxygen supplementation, patient's symptoms improved slowly, patient was weaned down to room air, shortness of breath and wheezing improved patient was stable discharged home on tapering dose of p.o. prednisone patient will follow-up PCP as outpatient Time Spent with Patient Time attestation: Total time spent providing and/or coordinating discharge services: Discharge coordination time: Greater than 30 minutes Physical Exam Vital Signs: Vital Signs: Last Vital Signs Temp 97 F 11/09/20 08:00 Pulse 90 11/09/20 08:13 Resp 16 11/09/20 08:00 BP 115/74 11/09/20 08:00 Pulse Ox 93 11/09/20 08:00 Body Mass Index 36.6 DS: Data Data Completed and Pending Completed studies during hospitalization [Text1]: Procedures Detoxification Services for Substance Abuse Treatment (10/08/20) Labs on day of discharge: Laboratory Results - last 24 hr 11/08/20 11/08/20 11/08/20 11:20 16:22 20:45 POC Glucose 277 H 217 H 270 H 11/09/20 07:40 POC Glucose 174 H Preliminary micro results at discharge 11/05/20 12:18 Blood Culture - Preliminary Blood - Venous No growth after 48 hours. 11/05/20 10:18 Blood Culture - Preliminary Blood - Venous No growth after 48 hours. Discharge Plan Discharge Anticipated Discharge Date/Time: 11/09/20 10:44 Patient Disposition: Home, Self-Care Referrals: Jaison Navarrete PA-C [Primary Care Provider] - 1 Week (11/11/2020 2:30 with ) Discharge Medications: New prednisone 20 mg tablet 40 mg PO DAILY Qty: 20 RF: 0 codeine-guaifenesin 10-100 mg/5 mL Liquid 5 ml PO Q6H PRN (Reason: Cough) Qty: 100 RF: 0 Continued naltrexone 50 mg tablet 50 mg PO DAILY Qty: 30 RF: 1 dextroamphetamine-amphetamine 20 mg tablet 20 mg PO BID@0700,1600 RF: 0 ipratropium-albuterol 0.5 mg-3 mg(2.5 mg base)/3 mL Solution For Nebulization 3 ml INHALATION Q6H PRN (Reason: Respiratory Distress) RF: 0 fluticasone propion-salmeterol 113-14 mcg/actuation Aerosol Powdr Breath Activated 1 inh INHALATION BID RF: 0 montelukast [Singulair] 10 mg tablet 10 mg PO BEDTIME RF: 0 glipizide 5 mg tablet 2.5 mg PO DAILY Qty: 30 RF: 0 (DME) blood-glucose meter [Accu-Chek Guide Glucose Meter] Misc See Rx Instructions .ROUTE .MEDSUPPLY Qty: 1 RF: 0 (DME) Accu-Chek Guide test strips Strip See Rx Instructions .ROUTE .MEDSUPPLY Qty: 100 RF: 0 (DME) lancets [Accu-Chek Multiclix Lancet] Misc See Rx Instructions .ROUTE .MEDSUPPLY Qty: 100 RF: 0 alcohol swabs [Alcohol Pads] Pads, Medicated 1 pad topical DIRECTED Qty: 200 RF: 0 multivitamin Tablet 1 tab PO DAILY RF: 0 prednisone 5 mg tablet 5 mg PO DAILY RF: 0 lisinopril-hydrochlorothiazide 10-12.5 mg tablet 1 tab PO DAILY 30 Days Qty: 30 RF: 3 lorazepam 0.5 mg tablet 0.5 mg PO TID PRN (Reason: anxiety) 30 Days Qty: 30 RF: 1 Changed albuterol sulfate 90 mcg/actuation HFA aerosol inhaler 1 inh inhalation Q4H PRN (Reason: shortness of breath or wheezing) Qty: 1 RF: 2 Discharge Orders: Discharge Order (Routine); Ordered 11/09/20 Ordered By: Paul Fernandez Diet: advance to usual diet Activity on Discharge: As tolerated Stand Alone Forms: Patient Portal Discharge page Care Plan Goals: treat asthma Health Concerns: recurrent asthma exacerbation Plan of Treatment: tapering steroid Discharge Date/Time: 11/09/20 13:16
--- NOTE | 2020-11-09 11:04 | MHC.CM.PN ---
PT DISCHARGING HOME SELF-CARE, PT WILL CALL FOR TRANSPORT.
--- NOTE | 2020-11-09 16:18 | MHC.CM.PN ---
CM ATTEMPTED TO CONTACT PT AT HER LISTED NUMBER REGARDING [facility] [place], MESSAGE LEFT FOR PT AT [phone] AT [phone].
== END 2020-11-09 13:16 | disposition home or self-care (01) | DRG 202 ==
LOC: HO.ED 13:40 → HO.EDOVER 14:03 → HO.S3 22:34
PROVIDERS: Nurse Practitioner Acute Care; Physician Assistant; Admitting Provider Internal Medicine; Emergency Provider Emergency Medicine; PCP Physician Assistant; Visit Provider Internal Medicine
DX: J45.52 Severe persistent asthma with status asthmaticus (principal); J96.01 Acute respiratory failure with hypoxia; F90.9 Attention-deficit hyperactivity disorder, unspecified type; M79.7 Fibromyalgia; Z20.822 Contact with and (suspected) exposure to COVID-19; Z91.5 Personal history of self-harm; F10.11 Alcohol abuse, in remission; F41.9 Anxiety disorder, unspecified; Z87.891 Personal history of nicotine dependence; Z88.5 Allergy status to narcotic agent; Z79.52 Long term (current) use of systemic steroids; Z79.51 Long term (current) use of inhaled steroids; Z79.84 Long term (current) use of oral hypoglycemic drugs; Z79.899 Other long term (current) drug therapy
CPT/HCPCS: 36415; 71046; 80048; 80076; 80307; 81003; 81025; 82947; 83605; 83735; 83880; 84145; 85025; 87040; 87633; 87635; 93005; 94640; 94644; 94645; 96365; 96366; 96375; 99284; 99291; J1650; J2920; J2930; J3475

== ENCOUNTER 2020-12-04 08:19 | Outpatient (REF) | payer OTHER, SELFPAY ==
[2020-12-04 09:16] LABS: Hematocrit 41.2 % (37-47); Hemoglobin 13.7 g/dl (12.0-16.0); Mean Corpuscular HGB Conc 33.3 g/dl (31.0-35.0); Mean Corpuscular Hemoglobin 31.3 pg (27.0-33.0); Mean Corpuscular Volume 94.1 fL (80-98); Mean Platelet Volume 9.9 fL (9.4-12.3); Platelet Count 376 X10*3/uL (160-400); Red Blood Count 4.38 X10*6/uL (4.20-5.50); Red Cell Distribution Width 12.4 % (11.0-16.0); White Blood Count 6.9 X10*3/uL (4.8-10.8)
[2020-12-04 09:48] LABS: Alanine Aminotransferase 27 U/L (0-31); Albumin Level 4.3 g/dL (3.5-5.0); Alkaline Phosphatase 71 U/L (39-117); Anion Gap 13 (12-20); Aspartate Amino Transferase 19 U/L (5-31); Bilirubin Total 0.9 mg/dL (0.0-1.0); Blood Urea Nitrogen 17 mg/dL (9-16); Calcium 9.4 mg/dL (8.4-10.2); Carbon Dioxide 28 mmol/L (22-29); Chloride 105 mmol/L (96-108); Cholesterol 179 mg/dL; Estimated Glomerular Filt Rate > 60; Glucose Fasting 158 mg/dL (60-99); HDL Cholesterol 63 mg/dL; LDL Cholesterol Calculated 66 mg/dl; Potassium 4.5 mmol/L (3.3-5.1); Sodium 141 mmol/L (135-145); Total Protein 6.8 g/dL (6.5-8.0); Triglycerides 254 mg/dL
[2020-12-04 09:50] LABS: Creatinine Urine 137.37 mg/dL; Microalbum/Creatinine Ratio Ur 7.2 ug/mg cr
[2020-12-04 09:59] LABS: TSH reflex Free T4 3.94 uIU/mL (0.32-4.0)
== END 2020-12-04 08:20 | disposition home or self-care (01) ==
LOC: HO.LAB 08:19
PROVIDERS: PCP Physician Assistant; Visit Provider Physician Assistant
DX: I10 Essential (primary) hypertension (principal); E11.9 Type 2 diabetes mellitus without complications
CPT/HCPCS: 36415; 80053; 80061; 82043; 84443; 85027

== ENCOUNTER 2021-01-23 10:59 | Emergency (ER) | payer OTHER, SELFPAY ==
[2021-01-23 11:01] VITALS: BP 134/90; PULSE 103; RESP 15; TEMP 36.8; O2SAT 96; BMI 35.8
--- NOTE | 2021-01-23 11:34 | ED.ASTHMA ---
HPI - Asthma General Chief Complaint: Asthma Stated Complaint: asthma Time Seen by Provider: 01/23/21 11:32 Source: patient Mode of arrival: ambulatory Limitations: no limitations History of Present Illness HPI Narrative: 50 years old female former smoker, asthmatic well known to this facility by multiple admissions in the past mostly for asthma exacerbation. Since she stopped smoking asthma has been more stable and less frequent, patient has not been in the hospital for the past 6 months which is a great progress for this patient, patient takes daily 5 mg of prednisone and xopenex. Patient's son was mowing the grass and left the house window, grass smell usually triggers patient's asthma, patient took her medication for asthma with no improvement came to the hospital, patient started to feel improvement in the hospital by the time I went to evaluate the patient patient feels back to her baseline able to breathe with no wheezing. Patient declined any risk for PE/DVT no leg swelling, no recent travel, no chest pain. No history of sick exposure. Related Data Home Medications Medication Instructions Recorded Confirmed dextroamphetamine-amphetamine 20 mg PO BID@0700,1600 07/26/20 12/09/20 fluticasone propion-salmeterol 1 inh INHALATION BID 10/08/20 12/09/20 montelukast [Singulair] 10 mg PO BEDTIME 10/08/20 12/09/20 prednisone 5 mg tablet 5 mg PO DAILY 10/28/20 12/09/20 multivitamin 1 tab PO DAILY 11/05/20 12/09/20 Previous Rx's Medication Instructions Recorded naltrexone 50 mg tablet 50 mg PO DAILY #30 tab 10/09/20 Accu-Chek Guide test strips #100 ea 10/11/20 alcohol swabs [Alcohol Pads] 1 pad TOPICAL DIRECTED #200 ea 10/11/20 blood-glucose meter [Accu-Chek #1 ea 10/11/20 Guide Glucose Meter] lancets [Accu-Chek Multiclix #100 ea 10/11/20 Lancet] lisinopril 10 1 tab PO DAILY 30 Days #30 tab 10/28/20 mg-hydrochlorothiazide 12.5 mg tablet albuterol sulfate 1 inh INHALATION Q4H PRN #1 ea 11/09/20 acetaminophen 650 mg 650 mg PO Q12H 30 Days #60 tab 12/09/20 tablet,extended release meloxicam 15 mg tablet 15 mg PO DAILY 30 Days #30 tab 12/09/20 metformin 1,000 mg tablet 1,000 mg PO BID 30 Days #60 tab 12/09/20 ipratropium 0.5 mg-albuterol 3 mg 3 ml INHALATION Q4-6H PRN #180 ml 12/13/20 (2.5 mg base)/3 mL nebulization soln Allergies Allergy/AdvReac Type Severity Reaction Status Date / Time hydromorphone [From DILAUDID] Allergy Severe SEIZURES Verified 12/09/20 09:55 oxycodone [OXYCODONE] Allergy Severe SEIZURES Verified 12/09/20 09:55 gabapentin [GABAPENTIN] Allergy Intermediate MUSCLE ACHE Verified 12/09/20 09:55 bupropion [From WELLBUTRIN] Allergy Unknown SEIZURES Verified 12/09/20 09:55 phenytoin [Dilantin] Allergy Unknown Unknown Verified 12/09/20 09:55 Review of Systems Review of Systems: All other systems are reviewed and are negative Constitutional: Reports as per HPI and Reports no additional constitutional complaints Eyes: Reports as per HPI and Reports no additional eye complaints Reports system reviewed and no additional complaints, except as documented Cardiovascular: Reports as per HPI and Reports no additional cardiovascular complaints Respiratory: Reports as per HPI and Reports no additional respiratory complaints Gastrointestinal: Reports as per HPI and Reports no additional gastrointestinal complaints Genitourinary: Reports no additional female genitourinary complaints Musculoskeletal: Reports no additional musculoskeletal complaints Skin/Breast: Reports system reviewed and no additional complaints, except as docu Psychiatric: Reports no additional psychiatric complaints Endocrine: Reports no additional endocrine complaints Hematologic/Lymphatic: Reports no additional hematologic/lymphatic complaints Allergic/Immunologic: Reports no additional allergic/immunologic complaints Reports system reviewed and no additional complaints, except as documented and Reports Abnormal speech present [facility] Past Medical History Medical History ADHD Alcohol abuse Anxiety Asthma Asthma-COPD overlap syndrome Cocaine abuse COPD (chronic obstructive pulmonary disease) Epilepsy Fibromyalgia History of suicide attempt HTN (hypertension) Sleep apnea Tracheomalacia Surgical History History of cholecystectomy Previous section Family History Family History Father No problems noted. Mother Cervical cancer Social History Social History Household Members: Spouse and Children Housing: House Alcohol intake: former Smoking Status: Former smoker Tobacco Type: Cigarette Cigarettes Per Day: 25 Years Smoked: 20 Second Hand Smoke Exposure: No Substance Use Type: Marijuana Patient : No service: No Current occupational status: unemployed Physical Exam Vital Signs: Vital Signs: Last Vital Signs Temp 98.2 F 01/23/21 11:01 Pulse 103 H 01/23/21 11:01 Resp 15 01/23/21 11:01 BP 134/90 H 01/23/21 11:01 Pulse Ox 96 01/23/21 11:01 Body Mass Index 35.8 Vital signs have been reviewed as appeared to be correct. Blood pressure normal. Heart rate elevated. Respiration rate normal. Temperature normal. Oxygen saturation normal. Appearance: Alert. Oriented X3. No acute distress. Head: Normal external exam. Normocephalic. Atraumatic. No Torres signs noted. No raccoon eyes noted Eyes: PERRLA. EOMI. Conjunctiva and sclera normal. Eyelids normal. ENT: TM's Normal. Pharynx normal. Uvula midline. Moist mucous membranes. No trismus noted. No drooling noted. No muffled voice noted. Neck: Normal inspection. Neck supple. FROM. No adenopathy. Thyroid Normal. No meningeal signs. No neck mass noted. CVS: Normal heart rate and rhythm. Heart sound normal. No murmurs noted. Pulses normal throughout. Respiratory: No respiratory distress. Painless inspiration. Breath sounds normal. No wheezes/rales/rhonchi noted. Chest nontender. No accessory muscle usage noted or decreased air movement noted. Abdomen: Soft and nontender. Bowel sounds normal in all 4 quadrants. No distention noted. No organomegaly noted. No visible injury noted. Back: No CVA tenderness. Full range of motion noted. Skin: Skin warm and dry. Normal skin color. Normal skin turgor. No rashes/lesions/lacerations noted. Extremities: No lower extremity edema. Extremities exhibit normal range of motion. Extremities nontender. Neuro: Oriented X 3. No motor deficit. No sensory deficit. Reflexes normal. Course Course Course Narrative: Assessment and plan. 50-year-old female well known to this hospital, patient used to smoke with frequent ED visits and admission related to her uncontrolled asthma, patient now under better control after she quit smoking, patient's asthma today was triggered by smelling grass while her son was mowing the lawn, patient used her home medication with no improvement when she came to the emergency department started to smell fresh air and symptoms has improved. No intervention at this point is needed. Will discharge the patient follow-up with PCP Discharge Plan Discharge Clinical Impression: Asthma Qualifiers: Asthma severity: mild Asthma persistence: intermittent Asthma complication type: uncomplicated Qualified Code(s): J45.20 - Mild intermittent asthma, uncomplicated Patient Disposition: Home, Self-Care Instructions: Asthma (ED) Prescriptions: No Action naltrexone 50 mg tablet 50 mg PO DAILY Qty: 30 RF: 1 ipratropium-albuterol 0.5 mg-3 mg(2.5 mg base)/3 mL solution for nebulization 3 ml inhalation Q4-6H PRN (Reason: shortness of breath or wheezing) Qty: 180 RF: 0 dextroamphetamine-amphetamine 20 mg tablet 20 mg PO BID@0700,1600 RF: 0 fluticasone propion-salmeterol 113-14 mcg/actuation Aerosol Powdr Breath Activated 1 inh INHALATION BID RF: 0 montelukast [Singulair] 10 mg tablet 10 mg PO BEDTIME RF: 0 (DME) blood-glucose meter [Accu-Chek Guide Glucose Meter] Misc See Rx Instructions .ROUTE .MEDSUPPLY Qty: 1 RF: 0 (DME) Accu-Chek Guide test strips Strip See Rx Instructions .ROUTE .MEDSUPPLY Qty: 100 RF: 0 (DME) lancets [Accu-Chek Multiclix Lancet] Misc See Rx Instructions .ROUTE .MEDSUPPLY Qty: 100 RF: 0 alcohol swabs [Alcohol Pads] Pads, Medicated 1 pad topical DIRECTED Qty: 200 RF: 0 multivitamin Tablet 1 tab PO DAILY RF: 0 albuterol sulfate 90 mcg/actuation HFA aerosol inhaler 1 inh inhalation Q4H PRN (Reason: shortness of breath or wheezing) Qty: 1 RF: 2 prednisone 5 mg tablet 5 mg PO DAILY RF: 0 lisinopril-hydrochlorothiazide 10-12.5 mg tablet 1 tab PO DAILY 30 Days Qty: 30 RF: 3 metformin 1,000 mg tablet 1,000 mg PO BID 30 Days Qty: 60 RF: 3 meloxicam 15 mg tablet 15 mg PO DAILY 30 Days Qty: 30 RF: 1 acetaminophen [Tylenol Arthritis Pain] 650 mg tablet extended release 650 mg PO Q12H 30 Days Qty: 60 RF: 3 Referrals: Jaison Navarrete PA-C [Primary Care Provider] - 2 days
== END 2021-01-23 12:00 | disposition home or self-care (01) ==
LOC: HO.ED 11:49
PROVIDERS: Emergency Provider Emergency Medicine; PCP Physician Assistant
DX: J45.20 Mild intermittent asthma, uncomplicated (principal); E11.9 Type 2 diabetes mellitus without complications; I10 Essential (primary) hypertension; F41.9 Anxiety disorder, unspecified; F14.10 Cocaine abuse, uncomplicated; F10.10 Alcohol abuse, uncomplicated; F12.90 Cannabis use, unspecified, uncomplicated; Z87.891 Personal history of nicotine dependence; Z91.5 Personal history of self-harm
CPT/HCPCS: 99282; 99283

== ENCOUNTER 2021-02-10 21:04 | Emergency (ER) | payer OTHER, SELFPAY ==
--- NOTE | ~2021-02-10 | XR_ITS ---
EXAMINATION: LEFT HAND/WRIST CLINICAL INFORMATION: [place] left hand. COMPARISON: None TECHNIQUE: 3 views. FINDINGS: There is a fishhook coiled within the palmar aspect of fifth metacarpal left hand. No gross bony abnormality. The soft tissues are normal. XR/XR hand wrist LT IMPRESSION: Should correlate within the palmar soft tissue of fifth metacarpal left hand.
[2021-02-10 21:13] VITALS: BP 136/100; PULSE 114; RESP 20; TEMP 36.3; O2SAT 98; BMI 34.2
--- NOTE | 2021-02-10 23:16 | ED.EXTPRO ---
HPI - Extremity Problem General Chief complaint: Extremity Injury, Upper Stated complaint: fishing hook stuck finger Time Seen by Provider: 02/10/21 22:13 Source: patient Mode of arrival: ambulatory Limitations: no limitations History of Present Illness HPI Narrative: Patient comes emergency room complaining of having a fishhook stuck in her ring finger on the left hand since 14:00. Patient states it was a long ride home and waited to come here. Patient states that 3 months ago she received her tetanus booster immunization. Related Data Home Medications Medication Instructions Recorded Confirmed dextroamphetamine-amphetamine 20 mg PO BID@0700,1600 07/26/20 02/08/21 fluticasone propion-salmeterol 1 inh INHALATION BID 10/08/20 02/08/21 montelukast [Singulair] 10 mg PO BEDTIME 10/08/20 02/08/21 prednisone 5 mg tablet 5 mg PO DAILY 10/28/20 02/08/21 multivitamin 1 tab PO DAILY 11/05/20 02/08/21 tiotropium bromide 2.5 2 puff INHALATION DAILY 02/08/21 02/08/21 mcg/actuation mist for inhalation Previous Rx's Medication Instructions Recorded naltrexone 50 mg tablet 50 mg PO DAILY #30 tab 10/09/20 Accu-Chek Guide test strips #100 ea 10/11/20 alcohol swabs [Alcohol Pads] 1 pad TOPICAL DIRECTED #200 ea 10/11/20 blood-glucose meter [Accu-Chek #1 ea 10/11/20 Guide Glucose Meter] lancets [Accu-Chek Multiclix #100 ea 10/11/20 Lancet] lisinopril 10 1 tab PO DAILY 30 Days #30 tab 10/28/20 mg-hydrochlorothiazide 12.5 mg tablet acetaminophen 650 mg 650 mg PO Q12H 30 Days #60 tab 12/09/20 tablet,extended release metformin 1,000 mg tablet 1,000 mg PO BID 30 Days #60 tab 12/09/20 ipratropium 0.5 mg-albuterol 3 mg 3 ml INHALATION Q4-6H PRN #180 ml 12/13/20 (2.5 mg base)/3 mL nebulization soln meloxicam 15 mg tablet 15 mg PO DAILY #30 tab 02/03/21 baclofen 10 mg tablet 10 mg PO BID PRN 30 Days #60 tab 02/08/21 Allergies Allergy/AdvReac Type Severity Reaction Status Date / Time hydromorphone [From DILAUDID] Allergy Severe SEIZURES Verified 02/10/21 21:19 oxycodone [OXYCODONE] Allergy Severe SEIZURES Verified 02/10/21 21:19 gabapentin [GABAPENTIN] Allergy Intermediate MUSCLE ACHE Verified 02/10/21 21:19 bupropion [From WELLBUTRIN] Allergy Unknown SEIZURES Verified 02/10/21 21:19 phenytoin [Dilantin] Allergy Unknown Unknown Verified 02/10/21 21:19 Review of Systems Review of Systems: Constitutional : No Weight loss, No Fever, No Chills, No Night Sweats, No Fatigue, No Malaise ENT/Mouth : No Hearing loss, No Ear Pain, No Nasal Congestion, No Sinus Pain, No Hoarseness, No sore throat, No Rhinorrhea, No Swallowing Difficulty Eyes: No Eye Pain, No Swelling, No Redness, No Foreign Body, No Discharge, No Vision Changes Cardiovascular : No Chest Pain, No SOB, No Dyspnea on Exertion, No Orthopnea, No Edema, No Palpitations Respiratory : No Cough, No Sputum, No Wheezing, No Smoke Exposure, No Dyspnea Gastrointestinal : No Nausea, No Vomiting, No Diarrhea, No Constipation, No abdominal Pain, No Hematochezia, No Melena Genitourinary : no irregular bleeding, No Dysuria, No Urinary Frequency, No Hematuria, No Urinary Incontinence, No Urgency, No Flank Pain, No Urinary Flow Changes, No Hesitancy Musculoskeletal : No joint pain, No Myalgias, No Joint Swelling Skin : [place] inserted/stuck in the index of the left hand Neuro : No Weakness, No Numbness, No Paresthesias, No Loss of Consciousness, No Dizziness, No Headache Psych : No Anxiety/Panic, No Depression, No SI/HI/AH/VH, No Social Issues, Heme/Lymph: No Bruising, No Bleeding,No Lymphadenopathy Endocrine : No Polyuria, No Polydipsia, No Temperature Intolerance [facility] Past Medical History Medical History ADHD Alcohol abuse Anxiety Asthma Asthma-COPD overlap syndrome Cocaine abuse COPD (chronic obstructive pulmonary disease) Epilepsy Fibromyalgia History of suicide attempt HTN (hypertension) Sleep apnea Tracheomalacia Surgical History History of cholecystectomy Previous section Family History Family History Father No problems noted. Mother Cervical cancer Social History Social History Household Members: Spouse and Children Housing: House Do you presently have visiting nurse or other home services: No Alcohol intake: former Cigarettes Per Day: 25 Years Smoked: 20 Second Hand Smoke Exposure: No Substance Use Type: Marijuana Advance Directives: No Advance Directives Information Provided: No Patient : No service: No Current occupational status: unemployed Physical Exam Vital Signs: Vital Signs: Last Vital Signs Temp 97.4 F 02/10/21 21:13 Pulse 114 H 02/10/21 21:13 Resp 20 02/10/21 21:13 BP 136/100 H 02/10/21 21:13 Pulse Ox 98 02/10/21 21:13 Body Mass Index 34.2 Appearance: Alert. Oriented X3. No acute distress. Eyes: Pupils equal, round and reactive to light. ENT: Pharynx normal. Neck: Normal inspection. Neck supple. No lymph nodes noted. No crepitus CVS: Normal heart rate and rhythm. Pulses normal. Normal S1 and S2 Respiratory: No respiratory distress. Breath sounds normal. No Wheezing. No rales Abdomen: Soft and nontender. No rigidity. No distention. good BS x4 Skin: Skin warm and dry. See below Extremities: No lower extremity edema. There is a small fishhook stuck in the index distal aspect left finger, no bleeding Neuro: Oriented X 3. No motor deficit. No sensory deficit. Moving all extermities. No slurred speech. Course Course Course Narrative: The left index finger on the affected area was infiltrated with 1% lidocaine, the fishhook was pushed, tip came through the skin, ring cutters were used to cut it off. The remainder of the fishhook was removed with no difficulty. MDM - Extremity (Nontraumatic) Imaging Data Hand x-ray: Radiologist's impression: There is a fishhook coiled within the palmar aspect of fifth metacarpal left hand. No gross bony abnormality. The soft tissues are normal. XR/XR hand wrist LT IMPRESSION: Should correlate within the palmar soft tissue of fifth metacarpal left hand. Discharge Plan Discharge Clinical Impression: [place] injury to finger Qualifiers: Encounter type: initial encounter Laterality: left Qualified Code(s): S69.92XA - Unspecified injury of left wrist, hand and finger(s), initial encounter Patient Disposition: Home, Self-Care Additional Instructions: Please follow-up with your primary care physician tomorrow. If you have any worsening or new symptoms, please return to the emergency room or call 911 Prescriptions: No Action naltrexone 50 mg tablet 50 mg PO DAILY Qty: 30 RF: 1 ipratropium-albuterol 0.5 mg-3 mg(2.5 mg base)/3 mL solution for nebulization 3 ml inhalation Q4-6H PRN (Reason: shortness of breath or wheezing) Qty: 180 RF: 0 meloxicam 15 mg tablet 15 mg PO DAILY Qty: 30 RF: 2 dextroamphetamine-amphetamine 20 mg tablet 20 mg PO BID@0700,1600 RF: 0 fluticasone propion-salmeterol 113-14 mcg/actuation Aerosol Powdr Breath Activated 1 inh INHALATION BID RF: 0 montelukast [Singulair] 10 mg tablet 10 mg PO BEDTIME RF: 0 (DME) blood-glucose meter [Accu-Chek Guide Glucose Meter] Misc See Rx Instructions .ROUTE .MEDSUPPLY Qty: 1 RF: 0 (DME) Accu-Chek Guide test strips Strip See Rx Instructions .ROUTE .MEDSUPPLY Qty: 100 RF: 0 (DME) lancets [Accu-Chek Multiclix Lancet] Misc See Rx Instructions .ROUTE .MEDSUPPLY Qty: 100 RF: 0 alcohol swabs [Alcohol Pads] Pads, Medicated 1 pad topical DIRECTED Qty: 200 RF: 0 multivitamin Tablet 1 tab PO DAILY RF: 0 prednisone 5 mg tablet 5 mg PO DAILY RF: 0 lisinopril-hydrochlorothiazide 10-12.5 mg tablet 1 tab PO DAILY 30 Days Qty: 30 RF: 3 metformin 1,000 mg tablet 1,000 mg PO BID 30 Days Qty: 60 RF: 3 acetaminophen [Tylenol Arthritis Pain] 650 mg tablet extended release 650 mg PO Q12H 30 Days Qty: 60 RF: 3 Spiriva Respimat 2.5 mcg/actuation mist 2 puff inhalation DAILY RF: 0 baclofen 10 mg tablet 10 mg PO BID PRN (Reason: muscle spasm) 30 Days Qty: 60 RF: 0
== END 2021-02-10 23:27 | disposition home or self-care (01) ==
PROVIDERS: Emergency Provider Emergency Medicine; PCP Physician Assistant
DX: S69.92XA Unspecified injury of left wrist, hand and finger(s), initial encounter (principal); S60.945A Unspecified superficial injury of left ring finger, initial encounter; M79.642 Pain in left hand; Z87.891 Personal history of nicotine dependence; Y28.9XXA Contact with unspecified sharp object, undetermined intent, initial encounter; Y93.9 Activity, unspecified; Y92.828 Other wilderness area as the place of occurrence of the external cause; Y99.9 Unspecified external cause status; Z79.899 Other long term (current) drug therapy
CPT/HCPCS: 73110; 73130; 99284

== ENCOUNTER 2021-04-05 07:21 | Outpatient (REF) | payer OTHER, SELFPAY ==
[2021-04-05 08:36] LABS: Hematocrit 40.8 % (37-47); Hemoglobin 13.5 g/dl (12.0-16.0); Mean Corpuscular HGB Conc 33.1 g/dl (31.0-35.0); Mean Corpuscular Hemoglobin 32.5 pg (27.0-33.0); Mean Corpuscular Volume 98.3 fL (80-98); Mean Platelet Volume 10.1 fL (9.4-12.3); Platelet Count 322 X10*3/uL (160-400); Red Blood Count 4.15 X10*6/uL (4.20-5.50); Red Cell Distribution Width 14.2 % (11.0-16.0); White Blood Count 8.8 X10*3/uL (4.8-10.8)
[2021-04-05 08:43] LABS: Estimated Average Glucose 126 mg/dL
[2021-04-05 09:16] LABS: Alanine Aminotransferase 35 U/L (0-31); Albumin Level 4.1 g/dL (3.5-5.0); Alkaline Phosphatase 68 U/L (39-117); Anion Gap 11 (12-20); Aspartate Amino Transferase 26 U/L (5-31); Bilirubin Total 0.7 mg/dL (0.0-1.0); Blood Urea Nitrogen 10 mg/dL (9-16); C Reactive Protein 0.88 mg/dL (< or = 0.50); Calcium 9.4 mg/dL (8.4-10.2); Carbon Dioxide 28 mmol/L (22-29); Chloride 105 mmol/L (96-108); Estimated Glomerular Filt Rate > 60; Glucose Fasting 104 mg/dL (60-99); Potassium 3.9 mmol/L (3.3-5.1); Rheumatoid Factor < 15.0 IU/mL (<15.0); Sodium 140 mmol/L (135-145); Total Protein 6.7 g/dL (6.5-8.0)
[2021-04-05 09:21] LABS: Erythrocyte Sedimentation Rate 7 MM/HR (0-20)
[2021-04-07 12:22] LABS: Anti Nuclear Antibody Screen NEGATIVE (NEGATIVE)
== END 2021-04-05 07:22 | disposition home or self-care (01) ==
LOC: HO.LAB 07:21
PROVIDERS: PCP Physician Assistant; Visit Provider Physician Assistant
DX: M25.50 Pain in unspecified joint (principal); E11.65 Type 2 diabetes mellitus with hyperglycemia; I10 Essential (primary) hypertension
CPT/HCPCS: 36415; 80053; 83036; 85027; 85652; 86038; 86039; 86140; 86431

== ENCOUNTER 2021-04-18 12:36 | Inpatient (IN) | payer MEDICARE, OTHER, SELFPAY ==
[2021-04-18] VITALS (7 sets, daily range): BP systolic 119–156; BP diastolic 67–86; PULSE 94–113; RESP 13–28; TEMP 36–36.9; O2SAT 92–98; BMI 34.5
--- NOTE | ~2021-04-18 | XR_ITS ---
EXAMINATION: XR CHEST CLINICAL INFORMATION: SOB. COMPARISON: None TECHNIQUE: Frontal view of the chest was obtained. FINDINGS: The lungs are well-expanded with patchy opacity seen in both lung bases likely developing infiltrate or atelectasis. Rest lungs are clear. The heart size and pulmonary vascularity is normal. No gross bony abnormality seen. XR/XR chest 1V IMPRESSION: Unremarkable chest exam.
[2021-04-18] MEDS: Albuterol Sulfate (0.083%) 2.5 MG/3 ML VIAL.NEB 7.5 MG INHALE (14:07)
[2021-04-18] MEDS: Albuterol/Iprat 2.5/0.5MG 3 ML AMPUL.NEB INHALE ×2 (14:07→19:54)
[2021-04-18] MEDS: Magnesium Sulfate/H2O 2 GM/50 ML PIGGYBACK IV (15:07)
[2021-04-18] MEDS: methylPREDNISolone Sod Succ 125 MG/2 ML VIAL IVPUSH (15:08)
[2021-04-18 15:15] LABS: MANUAL DIFF FLAG NO
[2021-04-18 15:18] LABS: Basophils Absolute Auto 0.1 X10*3/uL (0.0-0.2); Basophils Percent Auto 0.5 % (0-2); Eosinophils Absolute Auto 0.1 X10*3/uL (0.0-0.4); Eosinophils Percent Auto 0.5 % (0-4); Hematocrit 45.3 % (37-47); Hemoglobin 15.5 g/dl (12.0-16.0); Imm Gran Abs Auto 0.07 X10*3/uL (0.00-0.03); Imm Gran Pct Auto 0.6 % (0.0-0.4); Lymphocytes Absolute Auto 3.7 X10*3/uL (1.2-4.9); Lymphocytes Percent Auto 32.4 % (20-40); Mean Corpuscular HGB Conc 34.2 g/dl (31.0-35.0); Mean Corpuscular Hemoglobin 33.3 pg (27.0-33.0); Mean Corpuscular Volume 97.2 fL (80-98); Mean Platelet Volume 9.1 fL (9.4-12.3); Monocytes Absolute Auto 0.7 X10*3/uL (0.1-1.2); Monocytes Percent Auto 6.1 % (2-11); Neutrophils Absolute Auto 6.9 X10*3/uL (2.0-8.3); Neutrophils Percent Auto 59.9 % (45-73); Platelet Count 365 X10*3/uL (160-400); Red Blood Count 4.66 X10*6/uL (4.20-5.50); Red Cell Distribution Width 14.3 % (11.0-16.0); White Blood Count 11.6 X10*3/uL (4.8-10.8)
[2021-04-18 15:36] LABS: COVID-19 Test Negative (Negative); IDNOW Serial# 9DD0AD1C
[2021-04-18 16:00] LABS: Anion Gap 16 (12-20); Blood Urea Nitrogen 11 mg/dL (9-16); Carbon Dioxide 26 mmol/L (22-29); Chloride 106 mmol/L (96-108); Creatinine Clr Calc Pharmacy 85.3; Estimated Glomerular Filt Rate > 60; Glucose Random 114 mg/dL (60-115); Potassium 3.6 mmol/L (3.3-5.1); Sodium 144 mmol/L (135-145)
[2021-04-18] MEDS: Albuterol Sulfate (0.083%) 2.5 MG/3 ML VIAL.NEB 5 MG INHALE (16:28)
--- NOTE | 2021-04-18 17:10 | ED.ASTHMA ---
HPI - Asthma General Chief Complaint: Asthma Stated Complaint: asthma Time Seen by Provider: 04/18/21 13:57 Source: patient Mode of arrival: ambulatory Limitations: no limitations History of Present Illness HPI Narrative: Patient with history of asthma ex-smoker using Xopenex nebulizing treatment at home been feeling short of breath for last few days getting worse for last 24 hours use multiple times Xopenex at home without much relief when patient came to ER he she would very short of breath had difficulty in speaking full sentences saturating 95% room air tachypneic with respiratory rate 28 tachycardia 108/min afebrile had been vaccinated with COVID-19 denies any chest pain patient in chronic 5 mg prednisone daily Related Data Home Medications Medication Instructions Recorded Confirmed dextroamphetamine-amphetamine 20 20 mg PO BID@0700,1600 07/26/20 04/18/21 mg tablet fluticasone 113 mcg-salmeterol 14 1 inh INHALATION BID 10/08/20 04/18/21 mcg/actuation breath activated powdr montelukast 10 mg tablet 10 mg PO BEDTIME 10/08/20 04/18/21 (Singulair) prednisone 5 mg tablet 5 mg PO DAILY 10/28/20 04/18/21 multivitamin 1 tab PO DAILY 11/05/20 04/18/21 tiotropium bromide 2.5 2 puff INHALATION DAILY 02/08/21 04/18/21 mcg/actuation mist for inhalation Previous Rx's Medication Instructions Recorded naltrexone 50 mg tablet 50 mg PO DAILY #30 tab 10/09/20 alcohol swabs (Alcohol Pads) 1 pad TOPICAL DIRECTED #200 ea 10/11/20 blood sugar diagnostic (Accu-Chek #100 ea 10/11/20 Guide test strips) blood-glucose meter (Accu-Chek #1 ea 10/11/20 Guide Glucose Meter) lancets (Accu-Chek Multiclix #100 ea 10/11/20 Lancet) acetaminophen 650 mg 650 mg PO Q12H 30 Days #60 tab 12/09/20 tablet,extended release (Tylenol Arthritis Pain) ipratropium 0.5 mg-albuterol 3 mg 3 ml INHALATION Q4-6H PRN #180 ml 12/13/20 (2.5 mg base)/3 mL nebulization soln meloxicam 15 mg tablet 15 mg PO DAILY #30 tab 02/03/21 baclofen 10 mg tablet 10 mg PO BID PRN 30 Days #60 tab 03/15/21 lisinopril 20 1 tab PO DAILY 30 Days #30 tab 04/08/21 mg-hydrochlorothiazide 12.5 mg tablet metformin 1,000 mg tablet 1,000 mg PO DAILY 30 Days #30 tab 04/08/21 Allergies Allergy/AdvReac Type Severity Reaction Status Date / Time hydromorphone [From DILAUDID] Allergy Severe SEIZURES Verified 04/08/21 09:29 oxycodone [OXYCODONE] Allergy Severe SEIZURES Verified 04/08/21 09:29 gabapentin [GABAPENTIN] Allergy Intermediate MUSCLE ACHE Verified 04/08/21 09:29 albuterol Allergy Mild Trouble Verified 04/08/21 09:29 breathing bupropion [From WELLBUTRIN] Allergy Unknown SEIZURES Verified 04/08/21 09:29 phenytoin [Dilantin] Allergy Unknown Unknown Verified 04/08/21 09:29 Review of Systems Review of Systems: Yes all other systems are reviewed and are negative PMFSH Past Medical History Medical History ADHD Alcohol abuse Anxiety Asthma Asthma-COPD overlap syndrome Cocaine abuse COPD (chronic obstructive pulmonary disease) Epilepsy Fibromyalgia History of suicide attempt HTN (hypertension) Sleep apnea Tracheomalacia Surgical History History of cholecystectomy Previous section Family History Family History Father No problems noted. Mother Cervical cancer Mental health disorder Social History Social History Household Members: Spouse and Children Housing: House Do you presently have visiting nurse or other home services: No Alcohol intake: former Patient Tobacco Use Status: Former Tobacco user Cigarettes Per Day: 25 Years Smoked: 20 e-Cigarette/Vaping Use: Currently Using Second Hand Smoke Exposure: No Substance Use Type: Marijuana Advance Directives: No Advance Directives Information Provided: Yes service: No Current occupational status: unemployed Physical Exam Vital Signs: Vital Signs: Last Vital Signs Temp 98.5 F 04/18/21 16:10 Pulse 109 H 04/18/21 19:55 Resp 13 04/18/21 19:35 BP 119/75 04/18/21 19:35 Pulse Ox 94 04/18/21 19:35 Body Mass Index 34.5 Appearance: Alert. Oriented X3. In moderate respiratory distress with frequent dry cough Eyes: PERRLA, ENT: Pharynx normal. Oral Mucosa moist Neck: Normal inspection. Neck supple. CVS: Normal heart rate and rhythm. Pulses normal. Respiratory: Moderate respiratory distress. Using accessory respiratory muscles tachypneic equal air entry bilateral, diffuse wheezing no rales Abdomen: Soft and nontender. Bowel sounds are present, no mass palpable, no CVA tenderness Skin: Skin warm and dry. Normal skin color. Normal skin turgor. Extremities: No lower extremity edema. No calf tenderness Neuro: Oriented X 3. No motor deficit. MDM - Asthma MDM Narrative Medical decision making narrative: Patient with asthma/COPD with increased shortness of breath chest x-ray negative for infiltrate COVID-19 negative patient received 2x hour long nebulizing treatment still wheezing will admit patient for frequent nebulizing treatment and IV steroid Differential Diagnosis Differential diagnosis: Likely Acute exacerbation Lab Data Attestation: I reviewed the patient's lab results. Result diagrams: 04/18/21 15:03 04/18/21 15:03 Labs: Lab Results 04/18/21 04/18/21 04/18/21 Range/Units 15:03 15:03 15:03 WBC 11.6 H (4.8-10.8) X10*3/uL RBC 4.66 (4.20-5.50) X10*6/uL Hgb 15.5 (12.0-16.0) g/dl Hct 45.3 (37-47) % MCV 97.2 (80-98) fL MCH 33.3 H (27.0-33.0) pg MCHC 34.2 (31.0-35.0) g/dl RDW 14.3 (11.0-16.0) % Plt Count 365 (160-400) X10*3/uL MPV 9.1 L (9.4-12.3) fL Immature Gran % (Auto) 0.6 H (0.0-0.4) % Neut % (Auto) 59.9 (45-73) % Lymph % (Auto) 32.4 (20-40) % [place] % (Auto) 6.1 (2-11) % Eos % (Auto) 0.5 (0-4) % Baso % (Auto) 0.5 (0-2) % Lymph # (Auto) 3.7 (1.2-4.9) X10*3/uL [place] # (Auto) 0.7 (0.1-1.2) X10*3/uL Eos # (Auto) 0.1 (0.0-0.4) X10*3/uL Baso # (Auto) 0.1 (0.0-0.2) X10*3/uL Abs Immat Gran (auto) 0.07 H (0.00-0.03) X10*3/uL Absolute Neuts (auto) 6.9 (2.0-8.3) X10*3/uL Absolute Nucleated RBC 0.000 (0.0-0.012) X10*3/uL Nucleated RBC % (auto) 0.0 (0.0-0.2) /100WBC Sodium 144 (135-145) mmol/L Potassium 3.6 (3.3-5.1) mmol/L Chloride 106 (96-108) mmol/L Carbon Dioxide 26 (22-29) mmol/L Anion Gap 16 (12-20) BUN 11 (9-16) mg/dL Creatinine 0.77 (0.5-1.4) mg/dL Estim Creat Clear Calc 85.3 Estimated GFR > 60 Random Glucose 114 D (60-115) mg/dL Calcium 10.0 D (8.4-10.2) mg/dL COVID-19 ([facility]) Negative (Negative) COVID-19 Clin Com See Note Discharge Plan Discharge Clinical Impression: Asthma-COPD overlap syndrome Patient Disposition: Admitted As Inpatient
[2021-04-18] MEDS: Doxycycline Hyclate 100 MG in 0.9 % Sodium Chloride 250 ML 166.67 MG IV (17:46)
--- NOTE | 2021-04-18 18:35 | HP_ITS ---
DATE OF SERVICE: 04/18/2021 CHIEF COMPLAINT: Shortness of breath. HISTORY OF PRESENTING ILLNESS: This is a 50-year-old female patient with past medical history significant for asthma/COPD overlap syndrome, who presented to [facility] due to symptoms of shortness of breath of 2 to 3 days' duration. Symptoms started after she did yard work. She has a history of environmental allergies. She complained of associated sneezing, runny nose, itchy-watery eyes. She used her home inhalers and 5 mg of by mouth prednisone without any significant improvement. Therefore, came to the emergency room, where she was noted to have tachypnea, tachycardia. Her oxygenation was stable. She had bilateral expiratory wheeze. Chest x-ray showed bilateral patchy opacities at both bases, likely developing infiltrate or atelectasis. The patient treated in the emergency room with IV steroids, IV magnesium, 5 mg albuterol inhaler followed by 10 mg albuterol inhaler. But since she continued to have shortness of breath with chest tightness and significant wheeze, she is being admitted to [facility] for continued monitoring and treatment. PAST MEDICAL HISTORY: Significant for, 1. ADHD. 2. History of alcohol use. 3. History of anxiety. 4. History of asthma/COPD overlap syndrome. 5. History of epilepsy. 6. History of fibromyalgia. 7. History of hypertension. 8. History of sleep apnea. 9. History of tracheomalacia. PAST SURGICAL HISTORY: 1. Status post . 2. Status post cholecystectomy. SOCIAL HISTORY: She lives at home with . She drinks alcohol occasionally. No prior history of alcohol withdrawal. She is a former smoker. She also smoked marijuana every other day. Denies illicit drug use. FAMILY HISTORY: There is no family history of premature coronary artery disease. REVIEW OF SYSTEMS: LICENSE REGISTRATION EXAMINER: She denies any headache or dizziness. CVS: No chest pain, no palpitation. GI: She denies any nausea, vomiting, diarrhea. : No urinary symptoms of urgency and frequency. Rest of all other systems are reviewed and are negative. MEDICATIONS ON ADMISSION: Tylenol 650 q.6 hours as needed, baclofen 10 mg b.i.d. as needed, dextromethorphan/amphetamine 20 mg b.i.d., fluticasone 1 inhaler b.i.d., DuoNeb 3 mL inhaler every 4 to 6 hours as needed, lisinopril/hydrochlorothiazide 1 tablet daily, meloxicam 15 mg daily, metformin 1000 mg daily, Singulair 10 mg at bedtime, multivitamin 1 by mouth daily, naltrexone 50 mg daily, prednisone 5 mg daily. PHYSICAL EXAMINATION: GENERAL: The patient is sitting comfortably in bed and appears short of breath. VITALS: BP 134/86, respiratory rate 28, pulse of 108, and a temp of 96.8. HEENT: Pupils equal, round, and reactive to light and accommodation. Extraocular muscles are intact. Anicteric sclerae. NECK: Supple. No JVD. LUNGS: Bilateral expiratory wheeze. Diminished breath sounds. HEART: Regular rate and rhythm. ABDOMEN: Obese, soft, nontender. Bowel sounds audible. EXTREMITIES: Without clubbing, cyanosis, or edema. NEURO: Patient awake, alert x3. Face symmetrical. PSYCH: Appropriate affect. LABORATORY DATA: Showed a WBC of 11.6, hematocrit of 45, platelet count of 365. Sodium 144, potassium 3.6, chloride 106, BUN 11, and a creatinine of 0.7, calcium 10. Chest x-ray as mentioned earlier. ASSESSMENT AND PLAN: This is a 50-year-old female with history of asthma/chronic obstructive pulmonary disease overlap syndrome, history of tracheomalacia, attention deficit hyperactivity disorder, fibromyalgia, who presented to [facility] with shortness of breath and allergy symptoms. Problem list: 1. Sepsis due to chronic obstructive pulmonary disease exacerbation. The patient noted to have tachypnea, tachycardia, and chronic obstructive pulmonary disease exacerbation, will be admitted to medical floor, will be placed on IV steroids scheduled and as needed updraft treatment, IV doxycycline and cough medication. We will continue her on Singulair and Claritin due to anxiety related to use of inhalers. We will place her on low-dose Ativan. 2. Question community-acquired pneumonia. The patient will be placed on IV doxycycline. Follow clinical course. 3. Mild leukocytosis likely due to use of steroids versus due to pneumonia. We will treat infection. Follow CBC. 4. History of attention deficit hyperactivity disorder. We will continue Adderall. 5. Deep vein thrombosis prophylaxis. We will place the patient on Lovenox. 6. History of diabetes mellitus, likely due to continued use of steroids. We will place her on diabetic diet and insulin sliding scale. Dudley Amezcua MD NG/MODL / [id number]
[2021-04-18] MEDS: LORazepam 0.5 MG TABLET PO (19:35)
--- NOTE | 2021-04-18 21:00 | PC.NURSE ---
REPORT GIVEN TO SANDRA TORRES ON FLOOR, PT READY FOR TRANSPORT.
[2021-04-18] MEDS: 0.9 % Sodium Chloride Flush 3 ML SYRINGE IVFLUSH (21:59)
[2021-04-18] MEDS: methylPREDNISolone Sod Succ 40 MG/ML VIAL IVPUSH (22:10)
[2021-04-18 22:11] LABS: Glucose, Whole Blood 252 mg/dL (60-115)
[2021-04-18] MEDS: Insulin Lispro 100 UNIT/ML 3 ML VIAL SUBCUT (22:31)
[2021-04-18] MEDS: traZODone HCL 25 MG HALFTAB PO (22:31)
[2021-04-19] VITALS (11 sets, daily range): BP systolic 125–150; BP diastolic 64–85; PULSE 91–114; RESP 16–20; TEMP 36.2–37; O2SAT 91–95
[2021-04-19] MEDS: methylPREDNISolone Sod Succ 40 MG/ML VIAL IVPUSH ×3 (05:28→22:11)
[2021-04-19] MEDS: Doxycycline Hyclate 100 MG in 0.9 % Sodium Chloride 250 ML 166.67 MG IV ×2 (05:28→16:38)
[2021-04-19 07:42] LABS: Glucose, Whole Blood 215 mg/dL (60-115)
[2021-04-19] MEDS: Insulin Lispro 100 UNIT/ML 3 ML VIAL SUBCUT ×4 (07:56→20:51)
[2021-04-19] MEDS: 0.9 % Sodium Chloride Flush 3 ML SYRINGE IVFLUSH ×3 (07:57→20:14)
[2021-04-19] MEDS: LORazepam 0.5 MG TABLET PO ×2 (08:01→20:52)
[2021-04-19] MEDS: Albuterol/Iprat 2.5/0.5MG 3 ML AMPUL.NEB INHALE ×4 (08:24→19:18)
--- NOTE | 2021-04-19 11:29 | HO.PM.IMPN ---
Subjective Subjective Date of Service: 04/19/21 Interval History: Feeling better this morning less shortness of breath, no fever, no chills, no other acute issues overnight. No further episodes of sneezing,no itchy watery eyes Review of Systems General no headache, no dizziness, no fever chills. CVS no chest pain, no palpitation. Respiratory dry cough, less sob Gastrointestinal no nausea, no vomiting, no abdominal pain Physical Exam Vital Signs: Vital Signs: Last Vital Signs Temp 98.2 F 04/19/21 11:17 Pulse 109 H 04/19/21 11:17 Resp 18 04/19/21 11:17 BP 150/78 H 04/19/21 11:17 Pulse Ox 91 L 04/19/21 11:17 Body Mass Index 34.5 General no acute distress, talking in full sentences Neck supple ,no JVD. CVS regular rate rhythm, Respiratory no acute respiratory distress, bilateral expiratory wheeze Gastrointestinal abdomen soft, nontender, bowel sounds audible, no guarding , no rigidity. Extremities no edema. Neuro nonfocal Skin no rash Objective Data Current Medications Generic Name Dose Route Start Last Admin Trade Name Freq PRN Reason Stop Dose Admin Acetaminophen 650 mg 04/18/21 16:35 Acetaminophen 325 Mg Tablet PO Q6H PRN Pain, Mild (Pain Scale 1-3) Albuterol/Ipratropium 3 ml 04/18/21 20:00 04/19/21 08:24 Albuterol/Iprat 2.5/0.5mg 3 Ml Ampul.Neb INHALE 3 ml RQ4H WHILE AWAKE BEATRIZ Administration Enoxaparin Sodium 40 mg 04/18/21 18:00 04/18/21 18:44 Enoxaparin Sodium 40 Mg/0.4 Ml Syringe SUBCUT Not Given Q24H BEATRIZ Doxycycline Hyclate 100 mg/ 250 mls @ 166.67 mls/hr 04/18/21 17:00 04/19/21 07:27 Sodium Chloride IV Infused Q12H BEATRIZ Infusion Insulin Human Lispro 0 unit 04/19/21 07:30 04/19/21 07:56 Insulin Lispro 100 Unit/Ml 3 Ml Vial SUBCUT 4 unit QIDACHS BEATRIZ Administration Protocol Lorazepam 0.5 mg 04/18/21 16:35 04/19/21 08:01 Lorazepam 0.5 Mg Tablet PO 0.5 mg Q12H PRN Administration Anxiety Methylprednisolone Sodium Succinate 40 mg 04/18/21 22:00 04/19/21 05:28 Methylprednisolone Sod Succ 40 Mg/Ml Vial IVPUSH 40 mg Q8H BEATRIZ Administration Ondansetron HCl 4 mg 04/18/21 16:35 Ondansetron Hcl 4 Mg/2 Ml Vial IVPUSH Q8H PRN Nausea and Vomiting Sodium Chloride 3 ml 04/19/21 00:00 04/19/21 07:57 0.9 % Sodium Chloride Flush 3 Ml Syringe IVFLUSH 3 ml QSHIFT BEATRIZ Administration Labs CBC & Chem 7: 04/18/21 15:03 04/18/21 15:03 Labs: Laboratory Results - last 24 hr 04/18/21 04/18/21 04/18/21 15:03 15:03 15:03 MCV 97.2 MCH 33.3 H MCHC 34.2 RDW 14.3 Plt Count 365 MPV 9.1 L Immature Gran % (Auto) 0.6 H Neut % (Auto) 59.9 Lymph % (Auto) 32.4 [place] % (Auto) 6.1 Eos % (Auto) 0.5 Baso % (Auto) 0.5 Lymph # (Auto) 3.7 [place] # (Auto) 0.7 Eos # (Auto) 0.1 Baso # (Auto) 0.1 Abs Immat Gran (auto) 0.07 H Absolute Neuts (auto) 6.9 Absolute Nucleated RBC 0.000 Nucleated RBC % (auto) 0.0 Anion Gap 16 Estim Creat Clear Calc 85.3 Estimated GFR > 60 POC Glucose Random Glucose 114 D Calcium 10.0 D COVID-19 ([facility]) Negative COVID-19 Clin Com See Note 04/18/21 04/19/21 22:08 07:24 MCV MCH MCHC RDW Plt Count MPV Immature Gran % (Auto) Neut % (Auto) Lymph % (Auto) [place] % (Auto) Eos % (Auto) Baso % (Auto) Lymph # (Auto) [place] # (Auto) Eos # (Auto) Baso # (Auto) Abs Immat Gran (auto) Absolute Neuts (auto) Absolute Nucleated RBC Nucleated RBC % (auto) Anion Gap Estim Creat Clear Calc Estimated GFR POC Glucose 252 H 215 H Random Glucose Calcium COVID-19 (SONIA) COVID-19 Clin Com Assessment and Plan (1) Acute asthma exacerbation: Status: Acute (2) HTN (hypertension): Status: Acute Assessment and Plan: 50-year-old female with history of asthma/chronic obstructive pulmonary disease overlap syndrome, history of tracheomalacia, attention deficit hyperactivity disorder, fibromyalgia, who presented to [facility] with shortness of breath and allergy symptoms. 1. Sepsis due to chronic obstructive pulmonary disease/asthma exacerbation.? Feeling better this a.m. but has persistent shortness of breath and wheeze, persistent tachycardia likely due to updraft Continue IV steroids ,scheduled and as needed updraft treatment, IV doxycycline day 2 and cough medication.? continue Singulair and Claritin Add incentive spirometry, wean oxygen, encourage ambulation 2. Question community-acquired pneumonia.? Continue IV doxycycline.? Follow clinical course, repeat chest x-ray with worsening symptoms 3. Mild leukocytosis likely due to use of steroids versus due to pneumonia.? 4. History of attention deficit hyperactivity disorder.? continue Adderall. 5. Deep vein thrombosis prophylaxis.? on Lovenox. 6. History of diabetes mellitus, elevated blood sugars likely due steroids.? Resume metformin, continue diabetic diet and insulin sliding scale. 7. Hypertension resume home medication Quality Stroke Does the patient have a stroke diagnosis?: No VTE Prior VTE?: No VTE Risk Level:: Medical - moderate - high VTE Device Contraindication: Treatment Not Indicated VTE Drug Contraindication: N/A - Med Ordered
[2021-04-19 11:59] LABS: Glucose, Whole Blood 217 mg/dL (60-115)
[2021-04-19] MEDS: Amphetamine Mixed Salts 20 MG TABLET PO ×2 (12:07→16:37)
[2021-04-19] MEDS: hydroCHLOROthiazide 12.5 MG TABLET PO (12:07)
[2021-04-19] MEDS: Naltrexone HCl 50 MG TABLET PO (12:08)
[2021-04-19] MEDS: Acetaminophen 325 MG TABLET 650 MG PO (12:13)
[2021-04-19 16:09] LABS: Glucose, Whole Blood 209 mg/dL (60-115)
[2021-04-19] MEDS: PHENobarbitaL sodium 130 MG/ML VIAL 191 MG IM (18:18)
[2021-04-19] MEDS: Enoxaparin Sodium 40 MG/0.4 ML SYRINGE SUBCUT (18:19)
[2021-04-19] MEDS: Montelukast Sodium 10 MG TABLET PO (20:13)
[2021-04-19] MEDS: PHENobarbitaL sodium 130 MG/ML VIAL 143 MG IM ×2 (20:13→23:16)
[2021-04-19 20:42] LABS: Glucose, Whole Blood 255 mg/dL (60-115)
[2021-04-19] MEDS: traZODone HCL 50 MG TABLET PO (22:10)
[2021-04-20] VITALS (8 sets, daily range): BP systolic 109–115; BP diastolic 68–69; PULSE 92–107; RESP 16–20; TEMP 36–37.1; O2SAT 91–95
[2021-04-20] MEDS: Doxycycline Hyclate 100 MG in 0.9 % Sodium Chloride 250 ML 166.67 MG IV (05:29)
[2021-04-20] MEDS: methylPREDNISolone Sod Succ 40 MG/ML VIAL IVPUSH (05:29)
[2021-04-20 07:10] LABS: Glucose, Whole Blood 203 mg/dL (60-115)
[2021-04-20] MEDS: Multivitamin TABLET 1 TAB PO (07:47)
[2021-04-20] MEDS: Naltrexone HCl 50 MG TABLET PO (07:47)
[2021-04-20] MEDS: Amphetamine Mixed Salts 20 MG TABLET PO ×2 (07:47→16:43)
[2021-04-20] MEDS: Insulin Lispro 100 UNIT/ML 3 ML VIAL SUBCUT ×3 (07:49→16:42)
[2021-04-20] MEDS: hydroCHLOROthiazide 12.5 MG TABLET PO (07:49)
[2021-04-20] MEDS: PHENobarbitaL 30 MG TABLET PO (07:49)
[2021-04-20] MEDS: 0.9 % Sodium Chloride Flush 3 ML SYRINGE IVFLUSH (07:50)
[2021-04-20] MEDS: Albuterol/Iprat 2.5/0.5MG 3 ML AMPUL.NEB INHALE ×3 (08:08→15:54)
[2021-04-20] MEDS: predniSONE 20 MG TABLET 40 MG PO (10:07)
[2021-04-20 11:05] LABS: Glucose, Whole Blood 291 mg/dL (60-115)
[2021-04-20] MEDS: hydrOXYzine HCL 25 MG TABLET PO (11:56)
--- NOTE | 2021-04-20 16:09 | P.DS_ITS ---
DS: Providers Provider Date of Service: 04/20/21 Date of admission: 04/18/21 16:36 Primary care physician: Jaison Navarrete PA-C DS: Diagnosis Discharge Diagnosis (1) Acute asthma exacerbation: Status: Acute (2) HTN (hypertension): Status: Acute DS: Medications Discharge Medications Home Medications: Home Medications Medication Instructions Recorded Confirmed dextroamphetamine-amphetamine 20 20 mg PO BID@0700,1600 07/26/20 04/18/21 mg tablet fluticasone 113 mcg-salmeterol 14 1 inh INHALATION BID 10/08/20 04/18/21 mcg/actuation breath activated powdr montelukast 10 mg tablet 10 mg PO BEDTIME 10/08/20 04/18/21 (Singulair) multivitamin 1 tab PO DAILY 11/05/20 04/18/21 tiotropium bromide 2.5 2 puff INHALATION DAILY 02/08/21 04/18/21 mcg/actuation mist for inhalation Previous Rx's Medication Instructions Recorded naltrexone 50 mg tablet 50 mg PO DAILY #30 tab 10/09/20 alcohol swabs (Alcohol Pads) 1 pad TOPICAL DIRECTED #200 ea 10/11/20 blood sugar diagnostic (Accu-Chek #100 ea 10/11/20 Guide test strips) blood-glucose meter (Accu-Chek #1 ea 10/11/20 Guide Glucose Meter) lancets (Accu-Chek Multiclix #100 ea 10/11/20 Lancet) acetaminophen 650 mg 650 mg PO Q12H 30 Days #60 tab 12/09/20 tablet,extended release (Tylenol Arthritis Pain) ipratropium 0.5 mg-albuterol 3 mg 3 ml INHALATION Q4-6H PRN #180 ml 12/13/20 (2.5 mg base)/3 mL nebulization soln meloxicam 15 mg tablet 15 mg PO DAILY #30 tab 02/03/21 baclofen 10 mg tablet 10 mg PO BID PRN 30 Days #60 tab 03/15/21 lisinopril 20 1 tab PO DAILY 30 Days #30 tab 04/08/21 mg-hydrochlorothiazide 12.5 mg tablet metformin 1,000 mg tablet 1,000 mg PO DAILY 30 Days #30 tab 04/08/21 doxycycline hyclate 100 mg tablet 100 mg PO Q12H #7 tab 04/20/21 prednisone 20 mg tablet 20 mg PO DAILY #5 tab 04/20/21 DS: Summary Hospital Course Hospital Course: History of presenting illness CHIEF COMPLAINT:? Shortness of breath. ? HISTORY OF PRESENTING ILLNESS:? This is a 50-year-old female patient with past medical history significant for asthma/COPD overlap syndrome, who presented to [facility] due to symptoms of shortness of breath of 2 to 3 days' duration.? Symptoms started after she did yard work.? She has a history of environmental allergies.? She complained of associated sneezing, runny nose, itchy-watery eyes.? She used her home inhalers and 5 mg of by mouth prednisone without any significant improvem ent.? Therefore, came to the emergency room, where she was noted to have tachypnea, tachycardia.? Her oxygenation was stable.? She had bilateral expiratory wheeze.? Chest x-ray showed bilateral patchy opacities at both bases, likely developing infiltrate or atelectasis.? The patient treated in the emergency room with IV steroids, IV magnesium, 5 mg albuterol inhaler followed by 10 mg albuterol inhaler.? But since she continued to have shortness of breath with chest tightness and significant wheeze, she is being admitted to [facility] for continued monitoring and treatment. ? PAST MEDICAL HISTORY:? Significant for, 1. ADHD. 2. History of alcohol use. 3. History of anxiety. 4. History of asthma/COPD overlap syndrome. 5. History of epilepsy. 6. History of fibromyalgia. 7. History of hypertension. 8. History of sleep apnea. 9. History of tracheomalacia. ? PAST SURGICAL HISTORY:? 1. Status post . 2. Status post cholecystectomy. Hospital course ?50-year-old female with history of asthma/chronic obstructive? pulmonary disease overlap syndrome, history of tracheomalacia, attention deficit hyperactivity disorder, fibromyalgia, presented to [facility] with shortness of breath and allergy symptoms and admitted to hospital with a diagnosis of Sepsis due to chronic obstructive pulmonary disease/asthma exacerbation and possible early pneumonia, patient treated with IV steroids, updraft treatment, IV antibiotic and supportive care patient responded well to above treatment, currently ambulating in hallways with stable oxygenation therefore being discharged home on 5 more days of steroids and on by mouth antibiotic to finish a total 5 day course of antibiotic she has been recommended to resume all baseline inhalers. Patient during the course of hospitalization complain of withdrawal symptoms therefore treated with phenobarb protocol. In regard to other medical issues she has been continued on all home medications ? Time Spent with Patient Time attestation: Total time spent providing and/or coordinating discharge services: Discharge coordination time: Greater than 30 minutes Quality: Stroke Does the patient have a stroke diagnosis?: No Physical Exam Vital Signs: Vital Signs: Last Vital Signs Temp 98.7 F 04/20/21 15:49 Pulse 104 H 04/20/21 15:55 Resp 19 04/20/21 15:49 BP 115/69 04/20/21 15:49 Pulse Ox 91 L 04/20/21 15:49 Body Mass Index 34.5 ?General? no acute distress, talking in full sentences? Neck? supple ,no JVD. CVS? regular rate rhythm, Respiratory no acute respiratory distress, bilateral expiratory wheeze seems chronic, good bilateral air entry. Gastrointestinal abdomen soft, nontender, bowel sounds audible, no guarding , no rigidity. Extremities no edema. Neuro nonfocal, no tremors Skin no rash DS: Data Data Completed and Pending Completed studies during hospitalization [Text1]: Procedures Detoxification Services for Substance Abuse Treatment (10/08/20) Labs on day of discharge: Laboratory Results - last 24 hr 04/19/21 04/19/21 04/20/21 16:06 20:28 07:00 POC Glucose 209 H 255 H 203 H 04/20/21 10:57 POC Glucose 291 H Preliminary micro results at discharge 04/18/21 18:45 Blood Culture - Preliminary Blood - Venous No growth after 24 hours. 04/18/21 18:47 Blood Culture - Preliminary Blood - Venous No growth after 24 hours. Discharge Plan Discharge Patient Disposition: Home, Self-Care Discharge Diagnosis: Acute COPD/asthma exacerbation Alcohol abuse and withdrawal Sepsis Community-acquired pneumonia Referrals: Jaison Navarrete PA-C [Primary Care Provider] - 1 Week Discharge Medications: New doxycycline hyclate 100 mg Tablet 100 mg PO Q12H Qty: 7 RF: 0 prednisone 20 mg tablet 20 mg PO DAILY Qty: 5 RF: 0 Continued naltrexone 50 mg tablet 50 mg PO DAILY Qty: 30 RF: 1 ipratropium-albuterol 0.5 mg-3 mg(2.5 mg base)/3 mL solution for nebulization 3 ml inhalation Q4-6H PRN (Reason: shortness of breath or wheezing) Qty: 180 RF: 0 meloxicam 15 mg tablet 15 mg PO DAILY Qty: 30 RF: 2 baclofen 10 mg tablet 10 mg PO BID PRN (Reason: muscle spasm) 30 Days Qty: 60 RF: 2 dextroamphetamine-amphetamine 20 mg tablet 20 mg PO BID@0700,1600 RF: 0 fluticasone propion-salmeterol 113-14 mcg/actuation Aerosol Powdr Breath Activated 1 inh INHALATION BID RF: 0 montelukast [Singulair] 10 mg tablet 10 mg PO BEDTIME RF: 0 (DME) blood-glucose meter [Accu-Chek Guide Glucose Meter] Misc See Rx Instructions .ROUTE .MEDSUPPLY Qty: 1 RF: 0 (DME) Accu-Chek Guide test strips Strip See Rx Instructions .ROUTE .MEDSUPPLY Qty: 100 RF: 0 (DME) lancets [Accu-Chek Multiclix Lancet] Misc See Rx Instructions .ROUTE .MEDSUPPLY Qty: 100 RF: 0 alcohol swabs [Alcohol Pads] Pads, Medicated 1 pad topical DIRECTED Qty: 200 RF: 0 multivitamin Tablet 1 tab PO DAILY RF: 0 acetaminophen [Tylenol Arthritis Pain] 650 mg tablet extended release 650 mg PO Q12H 30 Days Qty: 60 RF: 3 lisinopril-hydrochlorothiazide 20-12.5 mg tablet 1 tab PO DAILY 30 Days Qty: 30 RF: 3 metformin 1,000 mg tablet 1,000 mg PO DAILY 30 Days Qty: 30 RF: 3 tiotropium bromide 2.5 mcg/actuation mist 2 puff inhalation DAILY RF: 0 Discontinued prednisone 5 mg tablet 5 mg PO DAILY RF: 0 Discharge Orders: Discharge Order (Routine); Ordered 04/20/21 Ordered By: Dudley Amezcua Diet: advance to usual diet Activity on Discharge: As tolerated Stand Alone Forms: Patient Portal Discharge page Care Plan Goals: COPD exacerbation due to allergies continue all home medication and take prednisone 20 mg daily for 5 more days in regard to questionable pneumonia take doxycycline for 3 days Health Concerns: COPD/hypertension/diabetes/alcohol dependence continue all home medication strongly recommend to abstain from alcohol Plan of Treatment: Outpatient follow-up with primary care physician in 1 week Assessment: as above
[2021-04-20 16:19] LABS: Glucose, Whole Blood 217 mg/dL (60-115)
== END 2021-04-20 17:36 | disposition home or self-care (01) | DRG 871 ==
LOC: HO.ED 17:10 → HO.EDOVER 17:21 → HO.IMC 20:06 → HO.S3 04-20 13:04 → HO.IMC 04-20 13:15
PROVIDERS: Admitting Provider Hospitalist; Emergency Provider Internal Medicine; PCP Physician Assistant; Visit Provider Hospitalist
DX: A41.9 Sepsis, unspecified organism (principal); J18.9 Pneumonia, unspecified organism; J45.41 Moderate persistent asthma with (acute) exacerbation; J44.0 Chronic obstructive pulmonary disease with (acute) lower respiratory infection; J44.1 Chronic obstructive pulmonary disease with (acute) exacerbation; Z20.822 Contact with and (suspected) exposure to COVID-19; F41.9 Anxiety disorder, unspecified; G40.909 Epilepsy, unspecified, not intractable, without status epilepticus; I10 Essential (primary) hypertension; F10.20 Alcohol dependence, uncomplicated; F90.9 Attention-deficit hyperactivity disorder, unspecified type; M79.7 Fibromyalgia; Z87.891 Personal history of nicotine dependence; Z88.5 Allergy status to narcotic agent; Z79.1 Long term (current) use of non-steroidal anti-inflammatories (NSAID); Z79.51 Long term (current) use of inhaled steroids; Z79.52 Long term (current) use of systemic steroids; Z79.84 Long term (current) use of oral hypoglycemic drugs; Z79.899 Other long term (current) drug therapy
CPT/HCPCS: 36415; 71045; 80048; 82947; 85025; 87040; 87635; 94640; 94644; 94645; 99283; J1650; J2560; J2920; J2930; J3475

== ENCOUNTER → 2021-04-26 08:31 | Outpatient (BNVA) | payer OTHER, SELFPAY | PROVIDERS: PCP Physician Assistant; Referring Provider Physician Assistant; Visit Provider Nurse Practitioner Family ==

== ENCOUNTER 2021-05-01 16:42 | Inpatient (IN) | payer OTHER, SELFPAY ==
--- NOTE | ~2021-05-01 | XR_ITS ---
EXAMINATION: XR CHEST CLINICAL INFORMATION: Shortness of breath COMPARISON: Chest x-ray April 18, 2021, November 05, 2020. TECHNIQUE: 2 views of the chest were obtained. FINDINGS: There is linear atelectasis at both lung bases similar to prior chest x-ray April 18, 2021. No acute airspace disease. No pulmonary vascular congestion. No pleural effusion or pneumothorax. Cardiac and mediastinal contours are normal. Heart size is normal. XR/XR chest 2V IMPRESSION: Linear atelectasis at lung bases. No acute airspace disease. No acute change of chest.
[2021-05-01 16:50] VITALS: BP 122/69; PULSE 112; RESP 20; TEMP 36.7; O2SAT 93; BMI 35.6
--- NOTE | 2021-05-01 17:26 | ECG_ITS ---
Test Reason : SOB Blood Pressure : / mmHG Vent. Rate : 105 BPM Atrial Rate : 105 BPM P-R Int : 142 ms QRS Dur : 100 ms QT Int : 366 ms P-R-T Axes : 067 041 063 degrees QTc Int : 483 ms Sinus tachycardia Otherwise normal ECG When compared with ECG of 05-NOV-2020 11:01, No significant change was found Referred By: Angela Horvath Electronically Signed By:PERRI WOOD
--- NOTE | 2021-05-01 17:35 | ED.ASTHMA ---
HPI - Asthma General Chief Complaint: Asthma Stated Complaint: Asthma Time Seen by Provider: 05/01/21 17:01 Source: patient Mode of arrival: ambulatory Limitations: no limitations History of Present Illness HPI Narrative: 50-year-old female with past medical history of COPD, asthma, and tracheomalacia, presents for 4 days of worsening shortness of breath, cough, and wheezing. Four days ago patient started coughing, and was coughing up green sputum. Two days ago her cough became dry and it hurt to cough. Yesterday she felt fatigued, and today she felt more short of breath despite using her DuoNeb. Today she feels short of breath with exertion. This feels like her regular asthma. She still feels short of breath despite using a DuoNeb 2 nd 1/2 hours ago. In addition she has a sore throat, and it hurts to swallow, she has had a runny nose. Patient states she is allergic to everything?, and she was camping with her 2 days ago which made her symptoms worse. Patient has been vaccinated for COVID. She has had no fevers, no nausea, vomiting, diarrhea, abdominal pain, chest pain. She has never been intubated for asthma. She uses pulmonology at [facility], and had a bronchoscopy in early February. She was discharged from [facility] for a 2 night stay on April 20 for an asthma exacerbation. She was discharged with doxycycline and prednisone. States that as soon as she stops her prednisone her symptoms return. Patient was also admitted in October to [place] for acute hypoxic respiratory failure. complaint: asthma attack Onset (ago): day(s) (4) Severity: moderate Context: recent URI and allergen exposure Associated symptoms: dry cough Asthma History: history of frequent attacks, history of prior ED visit and followed by specialist Treatments Prior to Arrival: inhaled bronchodilator Related Data Home Medications Medication Instructions Recorded Confirmed dextroamphetamine-amphetamine 20 20 mg PO BID@0700,1600 07/26/20 05/01/21 mg tablet fluticasone 113 mcg-salmeterol 14 1 inh INHALATION BID 10/08/20 05/01/21 mcg/actuation breath activated powdr montelukast 10 mg tablet 10 mg PO BEDTIME 10/08/20 05/01/21 (Singulair) multivitamin 1 tab PO DAILY 11/05/20 05/01/21 tiotropium bromide 2.5 2 puff INHALATION DAILY 02/08/21 05/01/21 mcg/actuation mist for inhalation Previous Rx's Medication Instructions Recorded naltrexone 50 mg tablet 50 mg PO DAILY #30 tab 10/09/20 alcohol swabs (Alcohol Pads) 1 pad TOPICAL DIRECTED #200 ea 10/11/20 blood sugar diagnostic (Accu-Chek #100 ea 10/11/20 Guide test strips) blood-glucose meter (Accu-Chek #1 ea 10/11/20 Guide Glucose Meter) lancets (Accu-Chek Multiclix #100 ea 10/11/20 Lancet) acetaminophen 650 mg 650 mg PO Q12H 30 Days #60 tab 12/09/20 tablet,extended release (Tylenol Arthritis Pain) ipratropium 0.5 mg-albuterol 3 mg 3 ml INHALATION Q4-6H PRN #180 ml 12/13/20 (2.5 mg base)/3 mL nebulization soln meloxicam 15 mg tablet 15 mg PO DAILY #30 tab 02/03/21 baclofen 10 mg tablet 10 mg PO BID PRN 30 Days #60 tab 03/15/21 lisinopril 20 1 tab PO DAILY 30 Days #30 tab 04/08/21 mg-hydrochlorothiazide 12.5 mg tablet metformin 1,000 mg tablet 1,000 mg PO DAILY 30 Days #30 tab 04/08/21 doxycycline hyclate 100 mg tablet 100 mg PO Q12H #7 tab 04/20/21 prednisone 20 mg tablet 20 mg PO DAILY #5 tab 04/20/21 docusate sodium 100 mg capsule 100 mg PO BEDTIME #30 cap 04/26/21 methylcellulose (laxative) 500 mg 500 mg PO DAILY #30 tab 04/26/21 tablet (Citrucel) Allergies Allergy/AdvReac Type Severity Reaction Status Date / Time hydromorphone [From DILAUDID] Allergy Severe SEIZURES Verified 05/01/21 16:55 oxycodone [OXYCODONE] Allergy Severe SEIZURES Verified 05/01/21 16:55 gabapentin [GABAPENTIN] Allergy Intermediate MUSCLE ACHE Verified 05/01/21 16:55 albuterol Allergy Mild Trouble Verified 05/01/21 20:34 breathing bupropion [From WELLBUTRIN] Allergy Unknown SEIZURES Verified 08/14/21 16:55 phenytoin [Dilantin] Allergy Unknown Unknown Verified 05/01/21 16:55 Review of Systems Constitutional: Constitutional: Denies chills, Denies fever(s) and Denies headache(s) Eyes: Eyes: Denies change in vision, Denies diplopia and Denies eye pain ENT: Denies dysphagia, Reports otalgia, Denies headache(s), Denies mouth pain, Reports nasal discharge and Reports sore throat Cardiovascular: Cardiovascular: Denies chest pain, Denies chest pain with activity, Denies irregular heart rhythm, Denies leg edema, Denies lightheadedness, Denies palpitations, Reports dyspnea and Reports dyspnea on exertion Respiratory: Respiratory: Reports cough, Denies hemoptysis, Denies excessive phlegm production, Denies pain on inspiration, Reports pain with cough, Reports dyspnea, Reports dyspnea on exertion and Reports wheezing Gastrointestinal: Gastrointestinal: Denies abdominal pain, Denies melena, Denies hematochezia, Denies constipation, Denies dysphagia, Denies diarrhea, Denies vomiting and Denies hematemesis Genitourinary: Genitourinary: Reports no additional female genitourinary complaints Musculoskeletal: Musculoskeletal: Reports no additional musculoskeletal complaints Integumentary/Breasts: Skin/Breast: Denies erythema and Denies rash Neurologic: Denies headache(s) Psychiatric: Psychiatric: Reports anxiety Endocrine: Endocrine: Denies palpitations Allergic/Immunologic: Allergic/Immunologic: Reports wheezing PMFSH Past Medical History Medical History ADHD Alcohol abuse Anxiety Asthma Asthma-COPD overlap syndrome Cocaine abuse COPD (chronic obstructive pulmonary disease) Epilepsy Fibromyalgia History of suicide attempt HTN (hypertension) Sleep apnea Tracheomalacia Surgical History History of cholecystectomy Previous section Family History Family History Father No problems noted. Mother Cervical cancer Mental health disorder Social History Social History Household Members: Spouse and Family Housing: House Do you presently have visiting nurse or other home services: No Alcohol intake: unknown Patient Tobacco Use Status: Former Tobacco user Cigarettes Per Day: 25 Years Smoked: 20 e-Cigarette/Vaping Use: Currently Using Second Hand Smoke Exposure: No Use of substances other than those prescribed or required for medical reasons: No Substance Use Type: Marijuana Advance Directives: No Advance Directives Information Provided: No Patient : No service: No Current occupational status: unemployed Physical Exam Vital Signs: Vital Signs: Last Vital Signs Temp 98.0 F 05/01/21 16:50 Pulse 108 H 05/01/21 20:00 Resp 20 05/01/21 20:00 BP 129/77 05/01/21 20:00 Pulse Ox 92 05/01/21 20:00 Body Mass Index 35.6 Const: General: cooperative, alert, awake and acute distress mild Nutritional Appearance: overweight Orientation/consciousness: patient oriented x3 Limitations: no limitations HENMT: Head: Yes normal to inspection, Yes normocephalic and Yes atraumatic Ears: hearing grossly normal bilaterally General nose exam: Normal external nose present Face and sinus: Yes normal facial exam Mouth: abnormal tongue and mucous membranes dry Mouth/tongue images: 1. white lesion Throat: Yes uvula midline and Yes posterior oropharynx abnormal (dry and erythematous) Eyes: Pupils: Equal, round and reactive pupils present EOM: EOMs intact bilaterally Neck: Neck: Yes normal visual inspection Lymphatic: lymphadenopathy (bilateral cervical) Resp: Effort & Inspection: able to speak in complete sentences, audible wheezes, no pursed lip breathing, no retractions and tachypneic Auscultation: rhonchi throughout and wheezes throughout Cardio: Rate: tachycardic Rhythm: regular rhythm Heart sounds: S1 normal heart sound present and S2 normal heart sound present GI: Inspection: Yes normal to inspection Palpation (GI): Soft to palpation, not firm, nontender, no guarding and not rigid Percussion: Yes normal to percussion Auscultation: normal bowel sounds Skin: General skin exam: no rashes or lesions noted Neuro: General: patient oriented x3 Cranial nerves: Yes Equal, round and reactive pupils present Extrem: General: Yes normal to inspection, Yes full ROM and Yes capillary refill normal Psych: Appearance: grossly normal Mental Status: mental status grossly normal Speech and movement: Normal speech and movement present Affect: normal affect Attitude: cooperative Course Course Course Narrative: 50-year-old female with past medical history of asthma, COPD, and tracheomalacia presents for 4 days of cough and worsening wheezing and short of breath. On exam, patient is tachycardic, most likely due to using DuoNeb just prior to arrival, do not suspect abscess. Of patient has wheezy and rhonchorous lungs throughout. Patient is able to speak in full sentences, although she gets breathless, no retractions noted. Patient has tachypneic in the 20s. VBG was within normal limits, as were labs. Covid negative; pt has been vaccinated. CXR shows There is linear atelectasis at both lung bases similar to prior chest x-ray April 18, 2021. No acute airspace disease. No pulmonary vascular congestion. No pleural effusion or? pneumothorax. Cardiac and mediastinal contours are normal. Heart size is normal. The after DuoNeb, patient is still tachypneic and short of breath. Gave Solu-Medrol. Gave magnesium and a continuous neb. . (She reports albuterol in an MDI makes her more short of breath. She reports the albuterol in in her DuoNeb does not make her more short of breat, and that she has had continuous albuterol nebs before to no ill effect) Patient is cachectic with a respiratory rate of 30, and is satting 92, despite treatment. Discussed dmission with Dr Gupta, who will admit. MDM - Asthma Differential Diagnosis Differential diagnosis: Likely Acute exacerbation, Acute asthmatic bronchitis, Pneumonia and COPD exacerbation Lab Data Result diagrams: 05/01/21 17:57 05/01/21 17:57 Labs: Lab Results 05/01/21 05/01/21 05/01/21 Range/Units 17:56 17:57 17:57 WBC 7.6 (4.8-10.8) X10*3/uL RBC 4.04 L (4.20-5.50) X10*6/uL Hgb 13.4 (12.0-16.0) g/dl Hct 39.5 (37-47) % MCV 97.8 (80-98) fL MCH 33.2 H (27.0-33.0) pg MCHC 33.9 (31.0-35.0) g/dl RDW 13.7 (11.0-16.0) % Plt Count 307 (160-400) X10*3/uL MPV 9.3 L (9.4-12.3) fL Immature Gran % (Auto) 1.6 H (0.0-0.4) % Neut % (Auto) 64.1 (45-73) % Lymph % (Auto) 25.7 (20-40) % [place] % (Auto) 7.0 (2-11) % Eos % (Auto) 1.1 (0-4) % Baso % (Auto) 0.5 (0-2) % Lymph # (Auto) 1.9 (1.2-4.9) X10*3/uL [place] # (Auto) 0.5 (0.1-1.2) X10*3/uL Eos # (Auto) 0.1 (0.0-0.4) X10*3/uL Baso # (Auto) 0.0 (0.0-0.2) X10*3/uL Abs Immat Gran (auto) 0.12 H (0.00-0.03) X10*3/uL Absolute Neuts (auto) 4.9 (2.0-8.3) X10*3/uL Absolute Nucleated RBC 0.000 (0.0-0.012) X10*3/uL Nucleated RBC % (auto) 0.0 (0.0-0.2) /100WBC VBG pH (7.32-7.43) VBG pCO2 mmHg VBG pO2 mmHg VBG HCO3 (22-26) mmol/L VBG O2 Saturation % VBG Base Excess mmol/L Sodium 144 (135-145) mmol/L Potassium 3.7 (3.3-5.1) mmol/L Chloride 109 H (96-108) mmol/L Carbon Dioxide 22 (22-29) mmol/L Anion Gap 17 (12-20) BUN 7 L (9-16) mg/dL Creatinine 0.73 (0.5-1.4) mg/dL Estim Creat Clear Calc 91.5 Estimated GFR > 60 Random Glucose 169 H D (60-115) mg/dL Calcium 9.4 (8.4-10.2) mg/dL Magnesium 2.3 (1.6-2.6) mg/dL Total Bilirubin 0.4 (0.0-1.0) mg/dL AST 19 (5-31) U/L ALT 37 H (0-31) U/L Alkaline Phosphatase 65 (39-117) U/L Total Protein 6.9 (6.5-8.0) g/dL Albumin 4.2 (3.5-5.0) g/dL Procalcitonin ng/mL Coronavirus (PCR) NEGATIVE (Negative) Influenza Type A (PCR) NEGATIVE (Negative) Influenza Type B (PCR) NEGATIVE (Negative) RSV RNA Qual (PCR) NEGATIVE (Negative) 05/01/21 05/01/21 Range/Units 17:57 17:57 WBC (4.8-10.8) X10*3/uL RBC (4.20-5.50) X10*6/uL Hgb (12.0-16.0) g/dl Hct (37-47) % MCV (80-98) fL MCH (27.0-33.0) pg MCHC (31.0-35.0) g/dl RDW (11.0-16.0) % Plt Count (160-400) X10*3/uL MPV (9.4-12.3) fL Immature Gran % (Auto) (0.0-0.4) % Neut % (Auto) (45-73) % Lymph % (Auto) (20-40) % [place] % (Auto) (2-11) % Eos % (Auto) (0-4) % Baso % (Auto) (0-2) % Lymph # (Auto) (1.2-4.9) X10*3/uL [place] # (Auto) (0.1-1.2) X10*3/uL Eos # (Auto) (0.0-0.4) X10*3/uL Baso # (Auto) (0.0-0.2) X10*3/uL Abs Immat Gran (auto) (0.00-0.03) X10*3/uL Absolute Neuts (auto) (2.0-8.3) X10*3/uL Absolute Nucleated RBC (0.0-0.012) X10*3/uL Nucleated RBC % (auto) (0.0-0.2) /100WBC VBG pH 7.42 (7.32-7.43) VBG pCO2 32 mmHg VBG pO2 114 mmHg VBG HCO3 21 L (22-26) mmol/L VBG O2 Saturation 98.0 % VBG Base Excess -2.1 mmol/L Sodium (135-145) mmol/L Potassium (3.3-5.1) mmol/L Chloride (96-108) mmol/L Carbon Dioxide (22-29) mmol/L Anion Gap (12-20) BUN (9-16) mg/dL Creatinine (0.5-1.4) mg/dL Estim Creat Clear Calc Estimated GFR Random Glucose (60-115) mg/dL Calcium (8.4-10.2) mg/dL Magnesium (1.6-2.6) mg/dL Total Bilirubin (0.0-1.0) mg/dL AST (5-31) U/L ALT (0-31) U/L Alkaline Phosphatase (39-117) U/L Total Protein (6.5-8.0) g/dL Albumin (3.5-5.0) g/dL Procalcitonin 0.10 ng/mL Coronavirus (PCR) (Negative) Influenza Type A (PCR) (Negative) Influenza Type B (PCR) (Negative) RSV RNA Qual (PCR) (Negative) ECG Data Interpretation: Sinus rhythm with a rate of 105. No ST elevation or depression. There is less than [address]-elevation in lead 3. No contiguous lead ST elevation, no reciprocal changes. T-wave inversions or flattening. PA interval 142, QRS 100, QTC 483. Discharge Plan Discharge Clinical Impression: Asthma Qualifiers: Asthma severity: severe Asthma persistence: persistent Asthma complication type: with acute exacerbation Qualified Code(s): J45.51 - Severe persistent asthma with (acute) exacerbation Patient Disposition: Admitted As Inpatient
[2021-05-01] MEDS: 0.9 % Sodium Chloride 500 ML 999 ML IV (17:59)
[2021-05-01] MEDS: methylPREDNISolone Sod Succ 125 MG/2 ML VIAL IVPUSH (18:00)
[2021-05-01] MEDS: LORazepam 2 MG/ML VIAL 0.5 MG IVPUSH (18:00)
[2021-05-01 18:01] LABS: MANUAL DIFF FLAG NO
[2021-05-01] MEDS: Mag&Al/Sim/Diphenhyd/Lidocaine 10 ML ORAL.SUSP PO (18:01)
[2021-05-01] MEDS: Albuterol/Iprat 2.5/0.5MG 3 ML AMPUL.NEB INHALE (18:02)
[2021-05-01 18:03] LABS: Basophils Percent Auto 0.5 % (0-2); Eosinophils Absolute Auto 0.1 X10*3/uL (0.0-0.4); Eosinophils Percent Auto 1.1 % (0-4); Hematocrit 39.5 % (37-47); Hemoglobin 13.4 g/dl (12.0-16.0); Imm Gran Abs Auto 0.12 X10*3/uL (0.00-0.03); Imm Gran Pct Auto 1.6 % (0.0-0.4); Lymphocytes Absolute Auto 1.9 X10*3/uL (1.2-4.9); Lymphocytes Percent Auto 25.7 % (20-40); Mean Corpuscular HGB Conc 33.9 g/dl (31.0-35.0); Mean Corpuscular Hemoglobin 33.2 pg (27.0-33.0); Mean Corpuscular Volume 97.8 fL (80-98); Mean Platelet Volume 9.3 fL (9.4-12.3); Monocytes Absolute Auto 0.5 X10*3/uL (0.1-1.2); Neutrophils Absolute Auto 4.9 X10*3/uL (2.0-8.3); Neutrophils Percent Auto 64.1 % (45-73); Platelet Count 307 X10*3/uL (160-400); Red Blood Count 4.04 X10*6/uL (4.20-5.50); Red Cell Distribution Width 13.7 % (11.0-16.0); White Blood Count 7.6 X10*3/uL (4.8-10.8)
[2021-05-01 18:05] LABS: Venous Blood Gas Refer to POC result
[2021-05-01 18:06] LABS: VBG Base Excess -2.1 mmol/L; VBG HCO3 21 mmol/L (22-26); VBG pCO2 32 mmHg; VBG pH 7.42 (7.32-7.43); VBG pO2 114 mmHg
[2021-05-01 18:22] LABS: Alanine Aminotransferase 37 U/L (0-31); Albumin Level 4.2 g/dL (3.5-5.0); Alkaline Phosphatase 65 U/L (39-117); Anion Gap 17 (12-20); Aspartate Amino Transferase 19 U/L (5-31); Bilirubin Total 0.4 mg/dL (0.0-1.0); Blood Urea Nitrogen 7 mg/dL (9-16); Calcium 9.4 mg/dL (8.4-10.2); Carbon Dioxide 22 mmol/L (22-29); Chloride 109 mmol/L (96-108); Creatinine Clr Calc Pharmacy 91.5; Estimated Glomerular Filt Rate > 60; Glucose Random 169 mg/dL (60-115); Magnesium 2.3 mg/dL (1.6-2.6); Potassium 3.7 mmol/L (3.3-5.1); Sodium 144 mmol/L (135-145); Total Protein 6.9 g/dL (6.5-8.0)
[2021-05-01 18:57] LABS: Influenza A PCR NEGATIVE (Negative); Influenza B PCR NEGATIVE (Negative); Resp Syncy Virus RNA Qual PCR NEGATIVE (Negative); SARS COV2 PCR INHOUSE NEGATIVE (Negative)
--- NOTE | 2021-05-01 19:10 | PC.NURSE ---
2nd call to respiratory to reeval. rt to come post situation with icu patient. provider aware. plan at this time is for [facility] to order hourlong neb and this rn to adminsiter. allergy to albuterol is only limited to MDI rather than UPDRAFT>
[2021-05-01] MEDS: Albuterol Sulfate (0.083%) 2.5 MG/3 ML VIAL.NEB 10 MG INHALE (19:16)
[2021-05-01] MEDS: Magnesium Sulfate/D5W 1 GM/100 ML PIGGYBACK IV (19:21)
[2021-05-01 20:00] VITALS: BP 129/77; PULSE 108; RESP 20; O2SAT 92
--- NOTE | 2021-05-01 20:32 | PC.NURSE ---
Hospitalist at bedside
--- NOTE | 2021-05-01 20:40 | PC.NURSE ---
RT at bedside for evaluation.
--- NOTE | 2021-05-01 21:22 | P.HPHOSP_ITS ---
History of Present Illness Date of Service: 05/01/21 Chief Complaint: shortness of breath This is a 50-year-old female with past medical history of asthma COPD overlap syndrome, history of alcohol abuse, diabetes, epilepsy, fibromyalgia, HTN, sleep apnea, who presents to the hospital with complaints of worsening shortness of breath. Of note patient was discharged from the hospital on 04/20 after being managed for asthma. She was sent home on doxycycline and prednisone. Patient reports as soon as she completed her prednisone course she started having worsening shortness of breath, cough, and wheezing. Patient denies any fever has some chills, no chest pain, no recent sick contacts besides the hospitaliz ation, no abdominal pain nausea or vomiting, no diarrhea constipation, no urinary symptoms and extremity edema. On Arrival to the ED patient hemodynamically stable satting 92-98% on room air Labs are significant for WBC count of 7.6, otherwise unremarkable. Patient received Solu-Medrol, multiple rounds of breathing treatment as well as MAC with no relief of her symptoms therefore she will be admitted for further management. Review of Systems Review of Systems: Yes all other systems are reviewed and are negative FORMERLY [facility] Medical History ADHD Alcohol abuse Anxiety Asthma Asthma-COPD overlap syndrome Cocaine abuse COPD (chronic obstructive pulmonary disease) Epilepsy Fibromyalgia History of suicide attempt HTN (hypertension) Sleep apnea Tracheomalacia Family History Father No problems noted. Mother Cervical cancer Mental health disorder Surgical History History of cholecystectomy Previous section Social History Household Members: Family Housing: House Do you presently have visiting nurse or other home services: No Alcohol intake: unknown Patient Tobacco Use Status: Former Tobacco user Cigarettes Per Day: 25 Years Smoked: 20 e-Cigarette/Vaping Use: Currently Using Second Hand Smoke Exposure: No Use of substances other than those prescribed or required for medical reasons: No Substance Use Type: Marijuana Currently Displaying Signs/Symptoms of Drug Intoxication Withdrawal: No Have you been hit, kicked, punched, or otherwise hurt by someone within the past year? If so, by whom?: No Do you feel safe in your current relationship?: Yes Is there a partner from a previous relationship who is making you feel unsafe now?: No Are you made to feel afraid or neglected: No Advance Directives: No Advance Directives Information Provided: No Do you have thoughts of harming others: None Do you have a plan to hurt others: No Plan Recently lost weight without trying: No Nutrition Risks: No Nutritional Risk Patient : No : No Poor oral hygiene: No service: No Current occupational status: unemployed Meds Allergies Allergy/AdvReac Type Severity Reaction Status Date / Time hydromorphone [From DILAUDID] Allergy Severe SEIZURES Verified 05/01/21 16:55 oxycodone [OXYCODONE] Allergy Severe SEIZURES Verified 05/01/21 16:55 gabapentin [GABAPENTIN] Allergy Intermediate MUSCLE ACHE Verified 05/01/21 16:55 albuterol Allergy Mild Trouble Verified 05/01/21 20:36 breathing;MDI use only bupropion [From WELLBUTRIN] Allergy Unknown SEIZURES Verified 05/01/21 16:55 phenytoin [Dilantin] Allergy Unknown Unknown Verified 05/01/21 16:55 Home Medications Medication Instructions Recorded Confirmed Last Taken Type dextroamphetamine-amphetamine 20 20 mg PO BID@0700,1600 07/26/20 05/01/21 1 Day Ago History mg tablet ~04/30/21 fluticasone 113 mcg-salmeterol 14 1 inh INHALATION BID 10/08/20 05/01/21 1 Day Ago History mcg/actuation breath [facility] mg tablet 10 mg PO BEDTIME 10/08/20 05/01/21 1 Day Ago History (Singulair) ~04/30/21 multivitamin 1 tab PO DAILY 11/05/20 05/01/21 1 Day Ago History ~04/30/21 tiotropium bromide 2.5 2 puff INHALATION DAILY 02/08/21 05/01/21 1 Day Ago History mcg/actuation mist for inhalation ~04/30/21 Physical Exam Vital Signs and Narrative: Vital Signs: Last Vital Signs Temp 98.0 F 05/01/21 16:50 Pulse 108 H 05/01/21 20:00 Resp 20 05/01/21 20:00 BP 129/77 05/01/21 20:00 Pulse Ox 92 05/01/21 20:00 Body Mass Index 35.6 Const: General: cooperative and no acute distress Orientation/consciousness: patient oriented x3 Eyes: General: appearance normal, both eyes and all related structures Pupils: Equal, round and reactive pupils present Resp: Other: Wheezing on auscultation Effort & Inspection: normal respiratory effort and able to speak in complete sentences Cardio: Rate: regular rate Rhythm: regular rhythm GI: Palpation (GI): Soft to palpation Auscultation: normal bowel sounds Skin: General skin exam: no rashes or lesions noted Neuro: General: patient oriented x3 Cranial nerves: Yes Equal, round and reactive pupils present Cognition (Neuro): normal cognition Extrem: General: Yes normal to inspection and Yes no pedal edema Results Labs CBC and Chem 7: 05/01/21 17:57 05/01/21 17:57 Labs: Laboratory Results - last 24 hr 05/01/21 05/01/21 05/01/21 17:56 17:57 17:57 MCV 97.8 MCH 33.2 H MCHC 33.9 RDW 13.7 Plt Count 307 MPV 9.3 L Immature Gran % (Auto) 1.6 H Neut % (Auto) 64.1 Lymph % (Auto) 25.7 [place] % (Auto) 7.0 Eos % (Auto) 1.1 Baso % (Auto) 0.5 Lymph # (Auto) 1.9 [place] # (Auto) 0.5 Eos # (Auto) 0.1 Baso # (Auto) 0.0 Abs Immat Gran (auto) 0.12 H Absolute Neuts (auto) 4.9 Absolute Nucleated RBC 0.000 Nucleated RBC % (auto) 0.0 VBG pH VBG pCO2 VBG pO2 VBG HCO3 VBG O2 Saturation VBG Base Excess Anion Gap 17 Estim Creat Clear Calc 91.5 Estimated GFR > 60 Random Glucose 169 H D Calcium 9.4 Magnesium 2.3 Total Bilirubin 0.4 AST 19 ALT 37 H Alkaline Phosphatase 65 Total Protein 6.9 Albumin 4.2 Procalcitonin Coronavirus (PCR) NEGATIVE Influenza Type A (PCR) NEGATIVE Influenza Type B (PCR) NEGATIVE RSV RNA Qual (PCR) NEGATIVE 05/01/21 05/01/21 17:57 17:57 MCV MCH MCHC RDW Plt Count MPV Immature Gran % (Auto) Neut % (Auto) Lymph % (Auto) [place] % (Auto) Eos % (Auto) Baso % (Auto) Lymph # (Auto) [place] # (Auto) Eos # (Auto) Baso # (Auto) Abs Immat Gran (auto) Absolute Neuts (auto) Absolute Nucleated RBC Nucleated RBC % (auto) VBG pH 7.42 VBG pCO2 32 VBG pO2 114 VBG HCO3 21 L VBG O2 Saturation 98.0 VBG Base Excess -2.1 Anion Gap Estim Creat Clear Calc Estimated GFR Random Glucose Calcium Magnesium Total Bilirubin AST ALT Alkaline Phosphatase Total Protein Albumin Procalcitonin 0.10 Coronavirus (PCR) Influenza Type A (PCR) Influenza Type B (PCR) RSV RNA Qual (PCR) Imaging Radiologist's Impressions: Impressions Chest X-Ray 05/01/21 17:26 IMPRESSION: Linear atelectasis at lung bases. No acute airspace disease. No acute change of chest. Assessment and Plan (1) Asthma exacerbation in COPD: Status: Acute 50-year-old female with asthma COPD overly syndrome presenting to the hospital with complaints of shortness of breath cough, wheezing # asthma exacerbation COPD - will start her on Solu-Medrol - DuoNeb p.r.n., and q.i.d. scheduled - monitor respiratory status # diabetes - diabetic diet - low-dose sliding scale insulin # ADHD - continue home medications # hypertension - stable - continue home medications DVT prophylaxis: Lovenox Quality Stroke Does the patient have a stroke diagnosis?: No VTE Prior VTE?: No VTE Risk Level:: Medical - moderate - high VTE Device Contraindication: Treatment Not Indicated VTE Drug Contraindication: N/A - Med Ordered
[2021-05-01 22:27] VITALS: BMI 37.0
[2021-05-01] MEDS: 0.9 % Sodium Chloride Flush 3 ML SYRINGE IVFLUSH (22:40)
[2021-05-02] VITALS (10 sets, daily range): BP systolic 114–140; BP diastolic 66–78; PULSE 93–110; RESP 16–20; TEMP 35.5–36.7; O2SAT 93–98
[2021-05-02] MEDS: methylPREDNISolone Sod Succ 40 MG/ML VIAL IVPUSH ×2 (05:26→17:18)
[2021-05-02] MEDS: Amphetamine Mixed Salts 20 MG TABLET PO ×2 (05:26→15:51)
[2021-05-02 06:45] LABS: Basophils Percent Auto 0.2 % (0-2); Hematocrit 39.3 % (37-47); Hemoglobin 13.2 g/dl (12.0-16.0); Imm Gran Abs Auto 0.25 X10*3/uL (0.00-0.03); Imm Gran Pct Auto 1.4 % (0.0-0.4); Lymphocytes Absolute Auto 0.9 X10*3/uL (1.2-4.9); Lymphocytes Percent Auto 5.3 % (20-40); MANUAL DIFF FLAG SCAN; Mean Corpuscular HGB Conc 33.6 g/dl (31.0-35.0); Mean Corpuscular Hemoglobin 33.5 pg (27.0-33.0); Mean Corpuscular Volume 99.7 fL (80-98); Mean Platelet Volume 9.6 fL (9.4-12.3); Monocytes Absolute Auto 0.3 X10*3/uL (0.1-1.2); Monocytes Percent Auto 1.8 % (2-11); Neutrophils Absolute Auto 16.1 X10*3/uL (2.0-8.3); Neutrophils Percent Auto 91.3 % (45-73); Platelet Count 335 X10*3/uL (160-400); Red Blood Count 3.94 X10*6/uL (4.20-5.50); SCAN SMEAR FLAG 1; White Blood Count 17.7 X10*3/uL (4.8-10.8)
[2021-05-02 06:46] LABS: Anion Gap 18 (12-20); Blood Urea Nitrogen 9 mg/dL (9-16); Calcium 9.4 mg/dL (8.4-10.2); Carbon Dioxide 21 mmol/L (22-29); Chloride 106 mmol/L (96-108); Creatinine Clr Calc Pharmacy 94.9; Estimated Glomerular Filt Rate > 60; Glucose Random 198 mg/dL (60-115); Potassium 4.3 mmol/L (3.3-5.1); Sodium 141 mmol/L (135-145)
[2021-05-02 07:15] LABS: SLIDE REVIEW VERIFIED
[2021-05-02 07:27] LABS: Glucose, Whole Blood 202 mg/dL (60-115)
[2021-05-02] MEDS: Albuterol/Iprat 2.5/0.5MG 3 ML AMPUL.NEB INHALE ×4 (07:42→19:50)
--- NOTE | 2021-05-02 08:19 | HO.PM.IMPN ---
Subjective Subjective Date of Service: 05/02/21 Interval History: F/u astham/coped, still wheezing and sob Review of Systems No fever SOB/wheezing Physical Exam Vital Signs: Vital Signs: Last Vital Signs Temp 97 F 05/02/21 07:19 Pulse 107 H 05/02/21 07:44 Resp 20 05/02/21 07:19 BP 138/68 05/02/21 07:19 Pulse Ox 96 05/02/21 07:19 Body Mass Index 37.0 General: AO X 3, no acute distress Resp: linette diffuse wheezes, no accessory muscle use CVS: S1,S2,RRR GI: +BS, NT, no distention Skin: No rash Neuro: motor grossly intact Psych: appropriate affect Objective Data Current Medications Generic Name Dose Route Start Last Admin Trade Name Freq PRN Reason Stop Dose Admin Acetaminophen 650 mg 05/01/21 21:33 Acetaminophen 325 Mg Tablet PO Q6H PRN Pain, Mild (Pain Scale 1-3) Albuterol/Ipratropium 3 ml 05/02/21 08:00 05/02/21 07:42 Albuterol/Iprat 2.5/0.5mg 3 Ml Ampul.Neb INHALE 3 ml RQ4H WHILE AWAKE BEATRIZ Administration Albuterol/Ipratropium 3 ml 05/01/21 21:33 Albuterol/Iprat 2.5/0.5mg 3 Ml Ampul.Neb INHALE Q4H PRN Shortness of Breath/Wheezing Amphetamine/Dextroamphetamine 20 mg 05/02/21 07:00 05/02/21 05:26 Amphetamine Mixed Salts 20 Mg Tablet PO 20 mg BID@0700,1600 BEATRIZ Administration Baclofen 10 mg 05/01/21 21:33 Baclofen 10 Mg Tablet PO BID PRN muscle spasm Docusate Sodium 100 mg 05/01/21 21:33 05/01/21 22:39 Docusate Sodium 100 Mg Capsule PO Not Given BEDTIME [facility] Enoxaparin Sodium 40 mg 05/01/21 22:00 05/01/21 22:39 Enoxaparin Sodium 40 Mg/0.4 Ml Syringe SUBCUT Not Given Q24H [facility] Hydrochlorothiazide 12.5 mg 05/02/21 09:00 Hydrochlorothiazide 12.5 Mg Tablet PO DAILY [facility] Lisinopril 20 mg 05/02/21 09:00 Lisinopril 20 Mg Tablet PO DAILY [facility] Melatonin 15 mg 05/02/21 21:00 Melatonin 3 Mg Tablet PO BEDTIME [facility] Methylprednisolone Sodium Succinate 40 mg 05/02/21 06:00 05/02/21 05:26 Methylprednisolone Sod Succ 40 Mg/Ml Vial IVPUSH 40 mg Q12H [facility] Administration Montelukast Sodium 10 mg 05/02/21 21:00 Montelukast Sodium 10 Mg Tablet PO BEDTIME [facility] Multivitamins/Vitamin C 1 tab 05/02/21 09:00 Multivitamin Tablet PO DAILY [facility] Naltrexone HCl 50 mg 05/02/21 09:00 Naltrexone Hcl 50 Mg Tablet PO DAILY [facility] Ondansetron HCl 4 mg 05/01/21 21:33 Ondansetron Hcl 4 Mg/2 Ml Vial IVPUSH Q8H PRN Nausea and Vomiting Sodium Chloride 3 ml 05/02/21 00:00 05/01/21 22:40 0.9 % Sodium Chloride Flush 3 Ml Syringe IVFLUSH 3 ml QSHIFT [facility] Administration Labs CBC & Chem 7: 05/02/21 05:59 05/02/21 05:59 Labs: Laboratory Results - last 24 hr 05/01/21 05/01/21 05/01/21 17:56 17:57 17:57 MCV 97.8 MCH 33.2 H MCHC 33.9 RDW 13.7 Plt Count 307 MPV 9.3 L Immature Gran % (Auto) 1.6 H Neut % (Auto) 64.1 Lymph % (Auto) 25.7 [place] % (Auto) 7.0 Eos % (Auto) 1.1 Baso % (Auto) 0.5 Lymph # (Auto) 1.9 [place] # (Auto) 0.5 Eos # (Auto) 0.1 Baso # (Auto) 0.0 Abs Immat Gran (auto) 0.12 H Absolute Neuts (auto) 4.9 Absolute Nucleated RBC 0.000 Nucleated RBC % (auto) 0.0 Smear Tech's Comments VBG pH VBG pCO2 VBG pO2 VBG HCO3 VBG O2 Saturation VBG Base Excess Anion Gap 17 Estim Creat Clear Calc 91.5 Estimated GFR > 60 POC Glucose Random Glucose 169 H D Calcium 9.4 Magnesium 2.3 Total Bilirubin 0.4 AST 19 ALT 37 H Alkaline Phosphatase 65 Total Protein 6.9 Albumin 4.2 Procalcitonin Coronavirus (PCR) NEGATIVE Influenza Type A (PCR) NEGATIVE Influenza Type B (PCR) NEGATIVE RSV RNA Qual (PCR) NEGATIVE 05/01/21 05/01/21 05/02/21 17:57 17:57 05:59 MCV 99.7 H MCH 33.5 H MCHC 33.6 RDW 14.0 Plt Count 335 MPV 9.6 Immature Gran % (Auto) 1.4 H Neut % (Auto) 91.3 H Lymph % (Auto) 5.3 L [place] % (Auto) 1.8 L Eos % (Auto) 0.0 Baso % (Auto) 0.2 Lymph # (Auto) 0.9 L [place] # (Auto) 0.3 Eos # (Auto) 0.0 Baso # (Auto) 0.0 Abs Immat Gran (auto) 0.25 H Absolute Neuts (auto) 16.1 H Absolute Nucleated RBC 0.000 Nucleated RBC % (auto) 0.0 Smear Tech's Comments VERIFIED VBG pH 7.42 VBG pCO2 32 VBG pO2 114 VBG HCO3 21 L VBG O2 Saturation 98.0 VBG Base Excess -2.1 Anion Gap Estim Creat Clear Calc Estimated GFR POC Glucose Random Glucose Calcium Magnesium Total Bilirubin AST ALT Alkaline Phosphatase Total Protein Albumin Procalcitonin 0.10 Coronavirus (PCR) Influenza Type A (PCR) Influenza Type B (PCR) RSV RNA Qual (PCR) 05/02/21 05/02/21 05:59 07:20 MCV MCH MCHC RDW Plt Count MPV Immature Gran % (Auto) Neut % (Auto) Lymph % (Auto) [place] % (Auto) Eos % (Auto) Baso % (Auto) Lymph # (Auto) [place] # (Auto) Eos # (Auto) Baso # (Auto) Abs Immat Gran (auto) Absolute Neuts (auto) Absolute Nucleated RBC Nucleated RBC % (auto) Smear Tech's Comments VBG pH VBG pCO2 VBG pO2 VBG HCO3 VBG O2 Saturation VBG Base Excess Anion Gap 18 Estim Creat Clear Calc 94.9 Estimated GFR > 60 POC Glucose 202 H Random Glucose 198 H Calcium 9.4 Magnesium Total Bilirubin AST ALT Alkaline Phosphatase Total Protein Albumin Procalcitonin Coronavirus (PCR) Influenza Type A (PCR) Influenza Type B (PCR) RSV RNA Qual (PCR) Assessment and Plan (1) Asthma exacerbation in COPD: Status: Acute (2) Obese: Status: Acute (3) DMII (diabetes mellitus, type 2): Status: Acute Assessment and Plan: 50-year-old female with asthma COPD overly syndrome presenting to the hospital with complaints of shortness of breath cough, wheezing # asthma exacerbation COPD, still symptomatic - continue IV steroid medrol for 1 more day, mary Walton p.r.n., and q.i.d. scheduled - monitor respiratory status # diabetes - diabetic diet - SSI, Metformin 1g bid # ADHD - continue home medications # hypertension - stable - continue home medications DVT prophylaxis: Lovenox home in a day or 2 Quality Stroke Does the patient have a stroke diagnosis?: No VTE Prior VTE?: No VTE Risk Level:: Medical - moderate - high VTE Device Contraindication: Treatment Not Indicated VTE Drug Contraindication: N/A - Med Ordered
[2021-05-02] MEDS: 0.9 % Sodium Chloride Flush 3 ML SYRINGE IVFLUSH ×3 (08:30→20:17)
[2021-05-02] MEDS: hydroCHLOROthiazide 12.5 MG TABLET PO (08:32)
[2021-05-02] MEDS: Multivitamin TABLET 1 TAB PO (08:32)
[2021-05-02] MEDS: lisinopriL 20 MG TABLET PO (08:32)
[2021-05-02] MEDS: Naltrexone HCl 50 MG TABLET PO (08:32)
--- NOTE | 2021-05-02 10:12 | MHC.CM.PN ---
CM MET WITH PT WHO CONFIRMS SHE LIVES WITH HER /HCP, SAAD. PT IS INDEPENDENT WITH SELF CARE AND AMBULATION. PT HAS NO SERVICES AND USES ONLY A NEBULIZER FOR DME. PT HAS A HCP ON FILE AND CONFIRMS SHE IS ACTIVE WITH [facility]YOT[facility] FLAHERTY FOR PRIMARY CARE. CURRENT DC PLAN IS HOME WITH NO SERVICES PT WILL SELF ARRANGE TRANSPORT
[2021-05-02 11:28] LABS: Glucose, Whole Blood 249 mg/dL (60-115)
[2021-05-02] MEDS: LORazepam 0.5 MG TABLET PO ×3 (11:45→21:32)
[2021-05-02] MEDS: Insulin Lispro 100 UNIT/ML 3 ML VIAL SUBCUT ×3 (11:45→20:14)
[2021-05-02] MEDS: Acetaminophen 325 MG TABLET 650 MG PO ×2 (15:51→21:31)
[2021-05-02 16:05] LABS: Glucose, Whole Blood 219 mg/dL (60-115)
[2021-05-02 20:10] LABS: Glucose, Whole Blood 287 mg/dL (60-115)
[2021-05-02] MEDS: Montelukast Sodium 10 MG TABLET PO (20:13)
[2021-05-02] MEDS: Melatonin 3 MG TABLET 15 MG PO (20:14)
[2021-05-03] MEDS: LORazepam 0.5 MG TABLET PO (02:22)
[2021-05-03 04:00] VITALS: BP 108/65; PULSE 89; RESP 18; TEMP 35.9; O2SAT 96
[2021-05-03] MEDS: methylPREDNISolone Sod Succ 40 MG/ML VIAL IVPUSH (05:01)
[2021-05-03] MEDS: Amphetamine Mixed Salts 20 MG TABLET PO (05:02)
[2021-05-03 07:18] VITALS: BP 117/75; PULSE 82; RESP 19; TEMP 35.9; O2SAT 96
[2021-05-03] MEDS: Albuterol/Iprat 2.5/0.5MG 3 ML AMPUL.NEB INHALE (07:26)
[2021-05-03 07:27] VITALS: PULSE 83; O2SAT 93
[2021-05-03 07:46] LABS: Glucose, Whole Blood 216 mg/dL (60-115)
[2021-05-03] MEDS: Naltrexone HCl 50 MG TABLET PO (07:48)
[2021-05-03] MEDS: Insulin Lispro 100 UNIT/ML 3 ML VIAL SUBCUT (07:49)
[2021-05-03] MEDS: Multivitamin TABLET 1 TAB PO (07:49)
[2021-05-03] MEDS: lisinopriL 20 MG TABLET PO (07:49)
[2021-05-03] MEDS: hydroCHLOROthiazide 12.5 MG TABLET PO (07:49)
[2021-05-03] MEDS: Acetaminophen 325 MG TABLET 650 MG PO (07:49)
[2021-05-03] MEDS: 0.9 % Sodium Chloride Flush 3 ML SYRINGE IVFLUSH (07:50)
--- NOTE | 2021-05-03 08:59 | PM.DS ---
DS: Providers Provider Date of Service: 05/03/21 Date of admission: 05/01/21 21:20 Primary care physician: Jaison Navarrete PA-C DS: Diagnosis Discharge Diagnosis (1) Asthma exacerbation in COPD: Status: Acute (2) Obese: Status: Acute (3) DMII (diabetes mellitus, type 2): Status: Acute DS: Medications Discharge Medications Home Medications: Home Medications Medication Instructions Recorded Confirmed dextroamphetamine-amphetamine 20 20 mg PO BID@0700,1600 07/26/20 05/01/21 mg tablet fluticasone 113 mcg-salmeterol 14 1 inh INHALATION BID 10/08/20 05/01/21 mcg/actuation breath activated powdr montelukast 10 mg tablet 10 mg PO BEDTIME 10/08/20 05/01/21 (Singulair) multivitamin 1 tab PO DAILY 11/05/20 05/01/21 tiotropium bromide 2.5 2 puff INHALATION DAILY 02/08/21 05/01/21 mcg/actuation mist for inhalation Previous Rx's Medication Instructions Recorded naltrexone 50 mg tablet 50 mg PO DAILY #30 tab 10/09/20 alcohol swabs (Alcohol Pads) 1 pad TOPICAL DIRECTED #200 ea 10/11/20 blood sugar diagnostic (Accu-Chek #100 ea 10/11/20 Guide test strips) blood-glucose meter (Accu-Chek #1 ea 10/11/20 Guide Glucose Meter) lancets (Accu-Chek Multiclix #100 ea 10/11/20 Lancet) acetaminophen 650 mg 650 mg PO Q12H 30 Days #60 tab 12/09/20 tablet,extended release (Tylenol Arthritis Pain) ipratropium 0.5 mg-albuterol 3 mg 3 ml INHALATION Q4-6H PRN #180 ml 12/13/20 (2.5 mg base)/3 mL nebulization soln meloxicam 15 mg tablet 15 mg PO DAILY #30 tab 02/03/21 baclofen 10 mg tablet 10 mg PO BID PRN 30 Days #60 tab 03/15/21 lisinopril 20 1 tab PO DAILY 30 Days #30 tab 04/08/21 mg-hydrochlorothiazide 12.5 mg tablet metformin 1,000 mg tablet 1,000 mg PO DAILY 30 Days #30 tab 04/08/21 doxycycline hyclate 100 mg tablet 100 mg PO Q12H #7 tab 04/20/21 prednisone 20 mg tablet 20 mg PO DAILY #5 tab 04/20/21 docusate sodium 100 mg capsule 100 mg PO BEDTIME #30 cap 04/26/21 methylcellulose (laxative) 500 mg 500 mg PO DAILY #30 tab 04/26/21 tablet (Citrucel) lorazepam 0.5 mg tablet (Ativan) 0.5 mg PO TID PRN #10 tab 05/03/21 methylprednisolone 4 mg tablets in See Rx Instructions .ROUTE 05/03/21 a dose pack (Medrol ([place])) .COMPLEX #21 ea DS: Summary Hospital Course Hospital Course: Date of Service: 05/01/21 Chief Complaint: shortness of breath This is a 50-year-old female with past medical history of asthma COPD overlap syndrome, history of alcohol abuse, diabetes, epilepsy, fibromyalgia, HTN, sleep apnea, who presents to the hospital with complaints of worsening shortness of breath.? Of note patient was discharged from the hospital on 04/20 after being managed for asthma.? She was sent home on doxycycline and prednisone.? Patient reports as soon as she completed her prednisone course she started having worsening shortness of breath, cough, and wheezing.? Patient denies any fever has some chills, no chest pain, no recent sick contacts besides the hospitalization, no abdominal pain nausea or vomiting, no diarrhea constipation, no urinary symptoms and extremity edema.? On Arrival to the ED patient hemodynamically stable satting 92-98% on room air Labs are significant for WBC count of 7.6, otherwise unremarkable. Patient received Solu-Medrol, multiple rounds of breathing treatment as well as MAC with no relief of her symptoms therefore she will be admitted for further management. Hospital course: Patient was treated for asthma exacerbation with COPD with IV steroid, bronchodilators by Nebulizer and ativan for anxiety. She feels better. Will discharge with Medrol dose pack, and to continue use of bronchodilators at home. She stopped smoking nearly a year ago. Ativan for anxiety on short term basis. Continue all other meds including dose for diabetes. Time Spent with Patient Time attestation: Total time spent providing and/or coordinating discharge services: Discharge coordination time: Greater than 30 minutes Quality: Stroke Does the patient have a stroke diagnosis?: No Physical Exam Vital Signs: Vital Signs: Last Vital Signs Temp 96.7 F L 05/03/21 07:18 Pulse 83 05/03/21 07:27 Resp 19 05/03/21 07:18 BP 117/75 05/03/21 07:18 Pulse Ox 96 05/03/21 07:18 Body Mass Index 37.0 DS: Data Data Completed and Pending Completed studies during hospitalization [Text1]: Procedures Detoxification Services for Substance Abuse Treatment (10/08/20) Labs on day of discharge: Laboratory Results - last 24 hr 05/02/21 05/02/21 05/02/21 11:22 16:01 20:05 POC Glucose 249 H 219 H 287 H 05/03/21 07:18 POC Glucose 216 H Discharge Plan Discharge Anticipated Discharge Date/Time: 05/03/21 08:48 Patient Disposition: Home, Self-Care Discharge Diagnosis: Asthma exacerbation with COPD Referrals: Jaison Navarrete PA-C [Primary Care Provider] - 1 Week Discharge Medications: New methylprednisolone [Medrol ([place])] 4 mg tablets,dose pack See Rx Instructions .ROUTE .COMPLEX Qty: 21 RF: 0 lorazepam [Ativan] 0.5 mg tablet 0.5 mg PO TID PRN (Reason: anxiety) Qty: 10 RF: 0 Continued naltrexone 50 mg tablet 50 mg PO DAILY Qty: 30 RF: 1 ipratropium-albuterol 0.5 mg-3 mg(2.5 mg base)/3 mL solution for nebulization 3 ml inhalation Q4-6H PRN (Reason: shortness of breath or wheezing) Qty: 180 RF: 0 meloxicam 15 mg tablet 15 mg PO DAILY Qty: 30 RF: 2 baclofen 10 mg tablet 10 mg PO BID PRN (Reason: muscle spasm) 30 Days Qty: 60 RF: 2 doxycycline hyclate 100 mg Tablet 100 mg PO Q12H Qty: 7 RF: 0 prednisone 20 mg tablet 20 mg PO DAILY Qty: 5 RF: 0 dextroamphetamine-amphetamine 20 mg tablet 20 mg PO BID@0700,1600 RF: 0 fluticasone propion-salmeterol 113-14 mcg/actuation Aerosol Powdr Breath Activated 1 inh INHALATION BID RF: 0 montelukast [Singulair] 10 mg tablet 10 mg PO BEDTIME RF: 0 (DME) blood-glucose meter [Accu-Chek Guide Glucose Meter] Misc See Rx Instructions .ROUTE .MEDSUPPLY Qty: 1 RF: 0 (DME) Accu-Chek Guide test strips Strip See Rx Instructions .ROUTE .MEDSUPPLY Qty: 100 RF: 0 (DME) lancets [Accu-Chek Multiclix Lancet] Misc See Rx Instructions .ROUTE .MEDSUPPLY Qty: 100 RF: 0 alcohol swabs [Alcohol Pads] Pads, Medicated 1 pad topical DIRECTED Qty: 200 RF: 0 multivitamin Tablet 1 tab PO DAILY RF: 0 acetaminophen [Tylenol Arthritis Pain] 650 mg tablet extended release 650 mg PO Q12H 30 Days Qty: 60 RF: 3 lisinopril-hydrochlorothiazide 20-12.5 mg tablet 1 tab PO DAILY 30 Days Qty: 30 RF: 3 metformin 1,000 mg tablet 1,000 mg PO DAILY 30 Days Qty: 30 RF: 3 tiotropium bromide 2.5 mcg/actuation mist 2 puff inhalation DAILY RF: 0 docusate sodium 100 mg capsule 100 mg PO BEDTIME Qty: 30 RF: 3 Citrucel 500 mg tablet 500 mg PO DAILY Qty: 30 RF: 2 Discharge Orders: Discharge Order (Routine); Ordered 05/03/21 Ordered By: Rory Sellers Diet: advance to usual diet Activity on Discharge: As tolerated Stand Alone Forms: Patient Portal Discharge page Care Plan Goals: prevent rehospitalization Health Concerns: COPD, Asthma Plan of Treatment: The medrol and use bronchodilatorys Assessment: See above
--- NOTE | 2021-05-03 09:18 | MHC.CM.PN ---
PT DISCHRAGING TODAY HOME SELF-CARE, PT HAS ARRANGED TRANSPORT
== END 2021-05-03 11:13 | disposition home or self-care (01) | DRG 191 ==
LOC: HO.ED 20:33 → HO.EDOVER 21:35 → HO.S3 22:07
PROVIDERS: Physician Assistant; Admitting Provider Internal Medicine; Emergency Provider Emergency Medicine; PCP Physician Assistant; Visit Provider Internal Medicine
DX: J44.1 Chronic obstructive pulmonary disease with (acute) exacerbation (principal); J45.51 Severe persistent asthma with (acute) exacerbation; Z20.822 Contact with and (suspected) exposure to COVID-19; E11.9 Type 2 diabetes mellitus without complications; F90.9 Attention-deficit hyperactivity disorder, unspecified type; G40.909 Epilepsy, unspecified, not intractable, without status epilepticus; M79.7 Fibromyalgia; I10 Essential (primary) hypertension; E66.9 Obesity, unspecified; Z68.37 Body mass index [BMI] 37.0-37.9, adult; Z87.891 Personal history of nicotine dependence; Z79.51 Long term (current) use of inhaled steroids; Z79.52 Long term (current) use of systemic steroids; Z79.84 Long term (current) use of oral hypoglycemic drugs; Z79.899 Other long term (current) drug therapy
CPT/HCPCS: 0241U; 36415; 71046; 80048; 80053; 82803; 82947; 83735; 84145; 85025; 93005; 94640; 96365; 96375; 99285; J2060; J2920; J2930; J3475

== ENCOUNTER → 2021-06-02 10:10 | Outpatient (BNVA) | payer OTHER, SELFPAY | PROVIDERS: PCP Physician Assistant; Referring Provider Physician Assistant; Visit Provider Nurse Practitioner Family ==

== ENCOUNTER 2021-10-14 11:40 | Emergency (ER) | payer BC, MEDICARE, SELFPAY ==
[2021-10-14] VITALS (9 sets, daily range): BP systolic 119–146; BP diastolic 62–92; PULSE 89–110; RESP 18–30; TEMP 36.4–36.9; O2SAT 95–98; BMI 34.9
--- NOTE | ~2021-10-14 | XR_ITS ---
EXAMINATION: XR CHEST CLINICAL INFORMATION: Shortness of breath. COPD. COMPARISON: Previous chest x-ray April 2021 TECHNIQUE: Frontal view of the chest was obtained. FINDINGS: The cardiac and mediastinal contours are stable. There are increased linear markings at the left lung base suggestive of subsegmental atelectasis. The lungs are otherwise clear. There is no pleural effusion or pneumothorax. Bony structures are unremarkable. XR/XR chest 1V IMPRESSION: Subsegmental atelectasis at the left lung base.
--- NOTE | 2021-10-14 11:57 | ECG_ITS ---
Test Reason : SHORTNESS OF BREATH Blood Pressure : / mmHG Vent. Rate : 097 BPM Atrial Rate : 097 BPM P-R Int : 144 ms QRS Dur : 104 ms QT Int : 366 ms P-R-T Axes : 047 040 062 degrees QTc Int : 464 ms Normal sinus rhythm Nonspecific T wave abnormality Prolonged QT Abnormal ECG When compared with ECG of 01-MAY-2021 18:05, No significant change was found Referred By: Veronica Butt Electronically Signed By:JOLIE OVERTON MD
--- NOTE | 2021-10-14 12:06 | ED_ITS ---
HPI - SOB/Dyspnea General Chief Complaint: Dyspnea Stated Complaint: ASTHMA Time Seen by Provider: 10/14/21 11:48 Source: patient Mode of arrival: ambulatory Limitations: no limitations History of Present Illness HPI Narrative: Patient comes emergency room complaining of 5 days of shortness of breath. Patient is known to have asthma and COPD. Patient states that over the last 4 days patient has been using more albuterol than usual. Patient takes at baseline 5 mg of prednisone. Usually patient has good affect with her nebulization treatments at home but over the last few days she has had no affect. Patient also complaining of 4 days of diarrhea, chills, no chest pain Related Data Home Medications Medication Instructions Recorded Confirmed dextroamphetamine-amphetamine 20 20 mg PO BID@0700,1600 07/26/20 09/07/21 mg tablet fluticasone 113 mcg-salmeterol 1 inh INHALATION BID 10/08/20 09/07/21 14 mcg/actuation breath activated powdr montelukast 10 mg tablet 10 mg PO BEDTIME 10/08/20 09/07/21 (Singulair) multivitamin 1 tab PO DAILY 11/05/20 09/07/21 tiotropium bromide 2.5 2 puff INHALATION DAILY 02/08/21 09/07/21 mcg/actuation mist for inhalation nystatin 100,000 unit/mL oral 5 ml PO QID 09/07/21 09/07/21 suspension prednisone 5 mg tablet 5 mg PO DAILY 09/07/21 09/07/21 Previous Rx's Medication Instructions Recorded naltrexone 50 mg tablet 50 mg PO DAILY #30 tab 10/09/20 alcohol swabs (Alcohol Pads) 1 pad TOPICAL DIRECTED #200 ea 10/11/20 blood sugar diagnostic (Accu-Chek #100 ea 10/11/20 Guide test strips) blood-glucose meter (Accu-Chek #1 ea 10/11/20 Guide Glucose Meter) lancets (Accu-Chek Multiclix #100 ea 10/11/20 Lancet) ipratropium 0.5 mg-albuterol 3 mg 3 ml INHALATION Q4-6H PRN #180 ml 12/13/20 (2.5 mg base)/3 mL nebulization soln meloxicam 15 mg tablet 15 mg PO DAILY #30 tab 02/03/21 baclofen 10 mg tablet 10 mg PO BID PRN 30 Days #60 tab 03/15/21 lisinopril 20 1 tab PO DAILY 30 Days #30 tab 04/08/21 mg-hydrochlorothiazide 12.5 mg tablet doxycycline hyclate 100 mg tablet 100 mg PO Q12H #7 tab 04/20/21 docusate sodium 100 mg capsule 100 mg PO BEDTIME #30 cap 04/26/21 methylcellulose (laxative) 500 mg 500 mg PO DAILY #30 tab 04/26/21 tablet (Citrucel) bisacodyl 5 mg tablet,delayed 10 mg PO ONCE 1 Days #2 tab 06/02/21 release (Dulcolax (bisacodyl)) polyethylene glycol 3350 17 238 g PO ONCE #238 g 06/02/21 gram/dose oral powder (Miralax) acetaminophen 650 mg 650 mg PO Q12H 30 Days #60 tab 08/18/21 tablet,extended release (Tylenol Arthritis Pain) alpha lipoic acid 600 mg capsule 600 mg PO BID 30 Days #60 cap 09/07/21 pyridoxine (vitamin B6) 100 mg 100 mg PO BID 30 Days #60 tab 09/07/21 tablet metformin 1,000 mg tablet 500 mg PO DAILY 30 Days #15 tab 09/22/21 tramadol 50 mg tablet 50 mg PO DAILY 14 Days #14 tab 10/07/21 Allergies Allergy/AdvReac Type Severity Reaction Status Date / Time hydromorphone Allergy Severe SEIZURES Verified 10/14/21 11:44 [From DILAUDID] oxycodone Allergy Severe SEIZURES Verified 10/14/21 11:44 [OXYCODONE] gabapentin Allergy Intermediate MUSCLE ACHE Verified 10/14/21 11:44 [GABAPENTIN] albuterol Allergy Mild Trouble Verified 10/14/21 11:44 breathing;MDI use only bupropion [From Allergy Unknown SEIZURES Verified 10/14/21 11:44 WELLBUTRIN] phenytoin Allergy Unknown Unknown Verified 10/14/21 11:44 [Dilantin] Review of Systems Verdana 4l Review of Systems: Verdana 4d Verdana 4d Constitutional : No Weight loss, No Fever, complaining of Chills, No Night Sweats, No Fatigue, No Malaise ENT/Mouth : No Hearing loss, No Ear Pain, No Nasal Congestion, No Sinus Pain, No Hoarseness, No sore throat, No Rhinorrhea, No SwallowingSwallowing Difficulty Eyes: No Eye Pain, No Swelling, No Redness, No Foreign Body, No Discharge, No Vision Changes Cardiovascular : No Chest Pain, no palpitations Respiratory : Complaining of dry cough, worsening wheezing, shortness of breath Gastrointestinal : No Nausea, No Vomiting, complaining of Diarrhea, No Constipation, No abdominal Pain, No Hematochezia, No Melena Genitourinary : no irregular bleeding, No Dysuria, No Urinary Frequency, No Hematuria, No Urinary Incontinence, No Urgency, No Flank Pain, No Urinary Flow Changes, No Hesitancy Musculoskeletal : No joint pain, No Myalgias, No Joint Swelling Skin : No Skin Lesions, No rash Neuro : No Weakness, No Numbness, No Paresthesias, No Loss of Consciousness, No Dizziness, No Headache Psych : No Anxiety/Panic, No Depression, No SI/HI/AH/VH, No Social Issues, Heme/Lymph: No Bruising, No Bleeding,No Lymphadenopathy Endocrine : No Polyuria, No Polydipsia, No Temperature Intolerance PMFSH Past Medical History Medical History ADHD Alcohol abuse Anxiety Asthma Asthma-COPD overlap syndrome Cocaine abuse COPD (chronic obstructive pulmonary disease) DMII (diabetes mellitus, type 2) Epilepsy Fibromyalgia History of suicide attempt HTN (hypertension) Obese Sleep apnea Tracheomalacia Surgical History History of cholecystectomy Previous section Family History Family History Father No problems noted. Mother Cervical cancer Mental health disorder Social History Social History Household Members: Family Housing: House Do you presently have visiting nurse or other home services: No Alcohol intake: unknown Patient Tobacco Use Status: Former Tobacco user Cigarettes Per Day: 25 Years Smoked: 20 e-Cigarette/Vaping Use: Currently Using Second Hand Smoke Exposure: No Substance Use Type: Marijuana Advance Directives: Yes Advance Directives on File: Yes Advance Directives Date on File: 11/05/20 service: No Current occupational status: unemployed Physical Exam Verdana 4l Vital Signs: Verdana 4d Verdana 4d Vital Signs: Verdana 4d Verdana 4Bd Last Vital Signs Verdana 4d Hand Cooper Helper New 4d Hand Cooper Helper New 4d Temp 98.4 F 10/14/21 15:17 Hand Cooper Helper New 4d Pulse 89 10/14/21 15:20 Hand Cooper Helper New 4d Resp 24 H 10/14/21 15:20 BP 146/92 H 10/14/21 15:17 Pulse Ox 95 10/14/21 15:17 BMI result Body Mass Index 34.9 Const: Other: Appearance: Alert. Oriented X3. No acute distress. Eyes: Pupils equal, round and reactive to light. ENT: Pharynx normal. Neck: Normal inspection. Neck supple. No lymph nodes noted. No crepitus CVS: Normal heart rate and rhythm. Pulses normal. Normal S1 and S2 Respiratory: No respiratory distress, bilateral expiratory wheezing, oxygen saturation 97% on room air Abdomen: Soft and nontender. No rigidity. No distention. Skin: Skin warm and dry. Normal skin color. Normal skin turgor. Extremities: No lower extremity edema. No Lacerations. No Rash Neuro: Oriented X 3. No motor deficit. No sensory deficit. Moving all extermities. No slurred speech. Course Course Course Narrative: Patient's white blood cell count is within normal limits, at this time, patient likely has an asthma exacerbation rather than a COPD exacerbation. Patient has no fever, no sputum production. Elevated lactic acid at this time, 12:58, is likely secondary to multiple nebulizations. Patient has chronically elevated lactic acid as well. is not suspected After an hour long, patient is to be easing. Patient just finished her breathing treatment. Patient receive 1 more dose of albuterol and 1st dose of magnesium. Patient's oxygen saturation 98% on room air. After 2nd embolizati on, patient can be reassessed, then determine if the patient can be safely be discharged home or if she needs inpatient treatment. Sign-out given to Doctor Ross BRINK - SOB/Dyspnea Lab Data Result diagrams: 10/14/21 12:27 10/14/21 12:43 Labs: Lab Results 10/14/21 10/14/21 10/14/21 Range/Units 12:27 12:27 12:27 WBC 9.9 (4.8-10.8) X10*3/uL RBC 4.93 (4.20-5.50) X10*6/uL Hgb 15.7 (12.0-16.0) g/dl Hct 45.6 (37.0-47.0) % MCV 92.5 (80.0-98.0) fL MCH 31.8 (27.0-33.0) pg MCHC 34.4 (31.0-35.0) g/dl RDW 13.0 (11.0-16.0) % Plt Count 404 H (160-400) X10*3/uL MPV 9.3 L (9.4-12.3) fL Immature Gran % (Auto) 0.2 (0.0-0.4) % Neut % (Auto) 61.2 (45-73) % Lymph % (Auto) 29.0 (20-40) % Hendricks % (Auto) 8.3 (2-11) % Eos % (Auto) 0.6 (0-4) % Baso % (Auto) 0.7 (0-2) % Lymph # (Auto) 2.9 (1.2-4.9) X10*3/uL Hendricks # (Auto) 0.8 (0.1-1.2) X10*3/uL Eos # (Auto) 0.1 (0.0-0.4) X10*3/uL Baso # (Auto) 0.1 (0.0-0.2) X10*3/uL Abs Immat Gran (auto) 0.02 (0.00-0.03) X10*3/uL Absolute Neuts (auto) 6.0 (2.0-8.3) x10*3/uL Absolute Nucleated RBC 0.000 (0.0-0.012) X10*3/uL Nucleated RBC % (auto) 0.0 (0.0-0.2) /100WBC Sodium (135-145) mmol/L Potassium (3.3-5.1) mmol/L Chloride (96-108) mmol/L Carbon Dioxide (22-29) mmol/L Anion Gap (12-20) BUN (9-16) mg/dL Creatinine (0.5-1.4) mg/dL Estim Creat Clear Calc Estimated GFR Random Glucose (60-115) mg/dL Lactic Acid 2.7 H* (0.5-2.0) mmol/L Lactic Acid F/U @ 2Hr (0.5-2.0) mmol/L Calcium (8.4-10.2) mg/dL Total Bilirubin (0.0-1.0) mg/dL Direct Bilirubin (0.0-0.5) mg/dL AST (5-31) U/L ALT (0-31) U/L Alkaline Phosphatase (39-117) U/L B-Natriuretic Peptide 10 (<100) pg/mL Total Protein (6.5-8.0) g/dL Albumin (3.5-5.0) g/dL Urine Color Urine Appearance Urine pH (5.0-8.0) Ur Specific [place] (1.005-1.025) Urine Protein (NEG-TRACE) MG/DL Urine Glucose (UA) (NEG) MG/DL Urine Ketones (NEG) MG/DL Urine Blood (NEG) Urine Nitrite (NEG) Ur Leukocyte Esterase (NEG) COVID-19 ([facility]) (Negative) COVID-19 Clin Com 10/14/21 10/14/21 10/14/21 Range/Units 12:27 12:27 12:43 WBC (4.8-10.8) X10*3/uL RBC (4.20-5.50) X10*6/uL Hgb (12.0-16.0) g/dl Hct (37.0-47.0) % MCV (80.0-98.0) fL MCH (27.0-33.0) pg MCHC (31.0-35.0) g/dl RDW (11.0-16.0) % Plt Count (160-400) X10*3/uL MPV (9.4-12.3) fL Immature Gran % (Auto) (0.0-0.4) % Neut % (Auto) (45-73) % Lymph % (Auto) (20-40) % Hendricks % (Auto) (2-11) % Eos % (Auto) (0-4) % Baso % (Auto) (0-2) % Lymph # (Auto) (1.2-4.9) X10*3/uL Hendricks # (Auto) (0.1-1.2) X10*3/uL Eos # (Auto) (0.0-0.4) X10*3/uL Baso # (Auto) (0.0-0.2) X10*3/uL Abs Immat Gran (auto) (0.00-0.03) X10*3/uL Absolute Neuts (auto) (2.0-8.3) x10*3/uL Absolute Nucleated RBC (0.0-0.012) X10*3/uL Nucleated RBC % (auto) (0.0-0.2) /100WBC Sodium 142 (135-145) mmol/L Potassium 3.1 L D (3.3-5.1) mmol/L Chloride 106 (96-108) mmol/L Carbon Dioxide 20 L (22-29) mmol/L Anion Gap 19 (12-20) BUN 10 (9-16) mg/dL Creatinine 0.73 (0.5-1.4) mg/dL Estim Creat Clear Calc 87.0 Estimated GFR > 60 Random Glucose 144 H (60-115) mg/dL Lactic Acid (0.5-2.0) mmol/L Lactic Acid F/U @ 2Hr (0.5-2.0) mmol/L Calcium 9.9 (8.4-10.2) mg/dL Total Bilirubin 0.6 (0.0-1.0) mg/dL Direct Bilirubin 0.3 (0.0-0.5) mg/dL AST 34 H D (5-31) U/L ALT 51 H (0-31) U/L Alkaline Phosphatase 86 D (39-117) U/L B-Natriuretic Peptide (<100) pg/mL Total Protein 7.5 (6.5-8.0) g/dL Albumin 4.4 (3.5-5.0) g/dL Urine Color STRAW Urine Appearance CLEAR Urine pH 6.0 (5.0-8.0) Ur Specific [place] <= 1.005 (1.005-1.025) Urine Protein NEG (NEG-TRACE) MG/DL Urine Glucose (UA) NEG (NEG) MG/DL Urine Ketones NEG (NEG) MG/DL Urine Blood NEG (NEG) Urine Nitrite NEG (NEG) Ur Leukocyte Esterase NEG (NEG) COVID-19 ([facility]) Negative (Negative) COVID-19 Clin Com See Note 10/14/21 Range/Units 14:51 WBC (4.8-10.8) X10*3/uL RBC (4.20-5.50) X10*6/uL Hgb (12.0-16.0) g/dl Hct (37.0-47.0) % MCV (80.0-98.0) fL MCH (27.0-33.0) pg MCHC (31.0-35.0) g/dl RDW (11.0-16.0) % Plt Count (160-400) X10*3/uL MPV (9.4-12.3) fL Immature Gran % (Auto) (0.0-0.4) % Neut % (Auto) (45-73) % Lymph % (Auto) (20-40) % Hendricks % (Auto) (2-11) % Eos % (Auto) (0-4) % Baso % (Auto) (0-2) % Lymph # (Auto) (1.2-4.9) X10*3/uL Hendricks # (Auto) (0.1-1.2) X10*3/uL Eos # (Auto) (0.0-0.4) X10*3/uL Baso # (Auto) (0.0-0.2) X10*3/uL Abs Immat Gran (auto) (0.00-0.03) X10*3/uL Absolute Neuts (auto) (2.0-8.3) x10*3/uL Absolute Nucleated RBC (0.0-0.012) X10*3/uL Nucleated RBC % (auto) (0.0-0.2) /100WBC Sodium (135-145) mmol/L Potassium (3.3-5.1) mmol/L Chloride (96-108) mmol/L Carbon Dioxide (22-29) mmol/L Anion Gap (12-20) BUN (9-16) mg/dL Creatinine (0.5-1.4) mg/dL Estim Creat Clear Calc Estimated GFR Random Glucose (60-115) mg/dL Lactic Acid (0.5-2.0) mmol/L Lactic Acid F/U @ 2Hr 2.8 H* (0.5-2.0) mmol/L Calcium (8.4-10.2) mg/dL Total Bilirubin (0.0-1.0) mg/dL Direct Bilirubin (0.0-0.5) mg/dL AST (5-31) U/L ALT (0-31) U/L Alkaline Phosphatase (39-117) U/L B-Natriuretic Peptide (<100) pg/mL Total Protein (6.5-8.0) g/dL Albumin (3.5-5.0) g/dL Urine Color Urine Appearance Urine pH (5.0-8.0) Ur Specific [place] (1.005-1.025) Urine Protein (NEG-TRACE) MG/DL Urine Glucose (UA) (NEG) MG/DL Urine Ketones (NEG) MG/DL Urine Blood (NEG) Urine Nitrite (NEG) Ur Leukocyte Esterase (NEG) COVID-19 ([facility]) (Negative) COVID-19 Clin Com Discharge Plan Discharge Clinical Impression: Asthma Patient Disposition: Still a Patient Prescriptions: No Action naltrexone 50 mg tablet 50 mg PO DAILY Qty: 30 1RF ipratropium-albuterol 0.5 mg-3 mg(2.5 mg base)/3 mL solution for nebulization 3 ml inhalation Q4-6H PRN (Reason: shortness of breath or wheezing) Qty: 180 0RF meloxicam 15 mg tablet 15 mg PO DAILY Qty: 30 2RF baclofen 10 mg tablet 10 mg PO BID PRN (Reason: muscle spasm) 30 Days Qty: 60 2RF acetaminophen [Tylenol Arthritis Pain] 650 mg tablet extended release 650 mg PO Q12H 30 Days Qty: 60 3RF metformin 1,000 mg tablet 500 mg PO DAILY 30 Days Qty: 15 3RF tramadol 50 mg tablet 50 mg PO DAILY 14 Days Qty: 14 0RF Rx Instructions: will discontinue naltrexone over the next 24 hours doxycycline hyclate 100 mg Tablet 100 mg PO Q12H Qty: 7 0RF dextroamphetamine-amphetamine 20 mg tablet 20 mg PO BID@0700,1600 0RF fluticasone propion-salmeterol 113-14 mcg/actuation Aerosol Powdr Breath Activated 1 inh INHALATION BID 0RF montelukast [Singulair] 10 mg tablet 10 mg PO BEDTIME 0RF (DME) blood-glucose meter [Accu-Chek Guide Glucose Meter] Misc See Rx Instructions .ROUTE .MEDSUPPLY Qty: 1 0RF Rx Instructions: As directed (DME) Accu-Chek Guide test strips Strip See Rx Instructions .ROUTE .MEDSUPPLY Qty: 100 0RF Rx Instructions: As directed (DME) lancets [Accu-Chek Multiclix Lancet] Misc See Rx Instructions .ROUTE .MEDSUPPLY Qty: 100 0RF Rx Instructions: As directed alcohol swabs [Alcohol Pads] Pads, Medicated 1 pad topical DIRECTED Qty: 200 0RF multivitamin Tablet 1 tab PO DAILY 0RF lisinopril-hydrochlorothiazide 20-12.5 mg tablet 1 tab PO DAILY 30 Days Qty: 30 3RF tiotropium bromide 2.5 mcg/actuation mist 2 puff inhalation DAILY 0RF prednisone 5 mg tablet 5 mg PO DAILY 0RF nystatin 100,000 unit/mL suspension 5 ml PO QID 0RF alpha lipoic acid 600 mg capsule 600 mg PO BID 30 Days Qty: 60 3RF pyridoxine (vitamin B6) 100 mg tablet 100 mg PO BID 30 Days Qty: 60 2RF bisacodyl [Dulcolax (bisacodyl)] 5 mg tablet,delayed release (DR/EC) 10 mg PO ONCE 1 Days Qty: 2 0RF Rx Instructions: take 2 tabs at noon the day before your colonoscopy polyethylene glycol 3350 [Miralax] 17 gram/dose powder 238 g PO ONCE Qty: 238 0RF Rx Instructions: As directed by gastroenterology department at [facility] docusate sodium 100 mg capsule 100 mg PO BEDTIME Qty: 30 3RF Citrucel 500 mg tablet 500 mg PO DAILY Qty: 30 2RF Rx Instructions: take it with full glass of water
[2021-10-14] MEDS: 0.9 % Sodium Chloride 1,000 ML 999 ML IVCONT (12:31)
[2021-10-14 12:32] LABS: MANUAL DIFF FLAG NO
[2021-10-14 12:34] LABS: Basophils Absolute Auto 0.1 X10*3/uL (0.0-0.2); Basophils Percent Auto 0.7 % (0-2); Eosinophils Absolute Auto 0.1 X10*3/uL (0.0-0.4); Eosinophils Percent Auto 0.6 % (0-4); Hematocrit 45.6 % (37.0-47.0); Hemoglobin 15.7 g/dl (12.0-16.0); Imm Gran Abs Auto 0.02 X10*3/uL (0.00-0.03); Imm Gran Pct Auto 0.2 % (0.0-0.4); Lymphocytes Absolute Auto 2.9 X10*3/uL (1.2-4.9); Mean Corpuscular HGB Conc 34.4 g/dl (31.0-35.0); Mean Corpuscular Hemoglobin 31.8 pg (27.0-33.0); Mean Corpuscular Volume 92.5 fL (80.0-98.0); Mean Platelet Volume 9.3 fL (9.4-12.3); Monocytes Absolute Auto 0.8 X10*3/uL (0.1-1.2); Monocytes Percent Auto 8.3 % (2-11); Neutrophils Percent Auto 61.2 % (45-73); Platelet Count 404 X10*3/uL (160-400); Red Blood Count 4.93 X10*6/uL (4.20-5.50); White Blood Count 9.9 X10*3/uL (4.8-10.8)
[2021-10-14 12:41] LABS: Appearance Urine CLEAR; Color Urine STRAW; Glucose Urine UA NEG (NEG); Leukocyte Esterase Urine NEG (NEG); Nitrite Urine NEG (NEG); Specific Gravity - Urine <= 1.005 (1.005-1.025); Urine Blood NEG (NEG); Urine Ketones NEG (NEG); Urine Protein NEG (NEG-TRACE)
[2021-10-14] MEDS: cefTRIAXone sodium 1 GM in 0.9 % Sodium Chloride 50 ML IV (12:43)
[2021-10-14] MEDS: methylPREDNISolone Sod Succ 125 MG/2 ML VIAL IVPUSH (12:43)
[2021-10-14 12:47] LABS: Lactic Acid 2.7 mmol/L (0.5-2.0)
[2021-10-14 12:53] LABS: B Type Natriuretic Peptide 10 pg/mL (<100)
[2021-10-14 12:54] LABS: COVID-19 Test Negative (Negative); IDNOW Serial# 9DD0AD1C
[2021-10-14 13:03] LABS: Alanine Aminotransferase 51 U/L (0-31); Albumin Level 4.4 g/dL (3.5-5.0); Alkaline Phosphatase 86 U/L (39-117); Anion Gap 19 (12-20); Aspartate Amino Transferase 34 U/L (5-31); Bilirubin Direct 0.3 mg/dL (0.0-0.5); Bilirubin Total 0.6 mg/dL (0.0-1.0); Blood Urea Nitrogen 10 mg/dL (9-16); Calcium 9.9 mg/dL (8.4-10.2); Carbon Dioxide 20 mmol/L (22-29); Chloride 106 mmol/L (96-108); Estimated Glomerular Filt Rate > 60; Glucose Random 144 mg/dL (60-115); Potassium 3.1 mmol/L (3.3-5.1); Sodium 142 mmol/L (135-145); Total Protein 7.5 g/dL (6.5-8.0)
[2021-10-14] MEDS: Azithromycin 500 MG in 0.9 % Sodium Chloride 250 ML 125 MG IV (14:07)
[2021-10-14] MEDS: Potassium Chloride Packet 20 MEQ PACKET 40 MEQ PO (14:10)
--- NOTE | 2021-10-14 14:13 | PC.NURSE ---
azithromycin hung late as this RN caring for an emergent pt
[2021-10-14 14:31] LABS: Reflex Lactate? Lactic Acid Added
[2021-10-14 15:07] LABS: ~Lactic Acid-LAB USE ONLY 2.8 mmol/L (0.5-2.0)
[2021-10-14] MEDS: Albuterol Sulfate (0.083%) 2.5 MG/3 ML VIAL.NEB 10 MG INHALE ×2 (15:20→16:40)
[2021-10-14] MEDS: Magnesium Sulfate/H2O 2 GM/50 ML PIGGYBACK IV (16:51)
[2021-10-14 16:54] LABS: Reflex Lactate? 2 Y
[2021-10-14 18:43] LABS: Glucose, Whole Blood 285 mg/dL (60-115)
== END 2021-10-14 19:26 | disposition home or self-care (01) ==
PROVIDERS: Emergency Medicine; Emergency Provider Internal Medicine; PCP Physician Assistant
DX: J45.909 Unspecified asthma, uncomplicated (principal); Z20.822 Contact with and (suspected) exposure to COVID-19; R06.02 Shortness of breath; E11.9 Type 2 diabetes mellitus without complications; F10.10 Alcohol abuse, uncomplicated; F14.10 Cocaine abuse, uncomplicated; F12.90 Cannabis use, unspecified, uncomplicated; F17.290 Nicotine dependence, other tobacco product, uncomplicated
CPT/HCPCS: 36415; 71045; 80048; 80076; 81003; 82947; 83605; 83880; 85025; 87040; 87635; 93005; 94640; 94644; 94645; 96365; 96366; 96367; 96375; 99284; J0456; J0696; J2930; J3475

== ENCOUNTER 2021-10-18 15:21 | Emergency (ER) | payer MEDICARE, BC, SELFPAY ==
[2021-10-18 16:14] VITALS: BP 161/94; PULSE 96; RESP 18; TEMP 36.6; O2SAT 94; BMI 34.9
== END 2021-10-18 18:28 | disposition left against medical advice (07) ==
PROVIDERS: Emergency Provider Emergency Medicine; PCP Physician Assistant
DX: J45.909 Unspecified asthma, uncomplicated (principal)
CPT/HCPCS: 99281; 99282

== ENCOUNTER 2021-11-11 11:16 | Emergency (ER) | payer BC, MEDICARE, SELFPAY ==
[2021-11-11 11:46] VITALS: BP 138/81; PULSE 93; RESP 18; TEMP 36.2; O2SAT 99; BMI 34.2
--- NOTE | 2021-11-11 12:25 | ED.ALLEREA ---
HPI - Allergic Reaction General Chief complaint: Allergic Reaction Stated complaint: hives Time Seen by Provider: 11/11/21 12:25 Source: patient Mode of arrival: ambulatory Limitations: no limitations History of Present Illness HPI narrative: 50-year-old female with history of severe persistent asthma, TEO, DM2, ADHD, anxiety/depression, hx former ETOH and cocaine use, and history of recent MRSA PNA requiring 2 week admission at [facility] 10/19-11/01 presents to the ER with a diffuse, itchy, painful and red rash all over her body that started 2 days ago. She reports the rash started in her LUE where she had her PICC line for IV Vancomycin. She reports her [facility] nurse took the dressing off and cleaned the area with some swabs when she was at home on Monday. The next day she had a raised, red, painful rash in her left upper on that spread to her upper upper chest. She went to [facility] where they gave her Benadryl and Pepcid. She went back yesterday with continued symptoms and they took out her PICC line and transitioned her to oral antibiotics for continued treatment of her MRSA pneumonia. She states the rash is continuing to spread is now going down her legs and up into her face. She denies any wheezing or difficulty breathing. No facial swelling, no tongue swelling, no lip swelling, no difficulty swallowing. She denies any history of anaphylaxis or rash like this in the past. Today was the 1st dose of her new oral antibiotic. complaint: hives Onset (ago): day(s) (2) Symptoms: rash and itching Severity: severe Treatment prior to arrival: benadryl Previous Allergic Reaction History: prior ED visit(s) Related Data Home Medications Medication Instructions Recorded Confirmed dextroamphetamine-amphetamine 20 20 mg PO BID@0700,1600 07/26/20 09/07/21 mg tablet fluticasone 113 mcg-salmeterol 14 1 inh INHALATION BID 10/08/20 09/07/21 mcg/actuation breath activated powdr montelukast 10 mg tablet 10 mg PO BEDTIME 10/08/20 09/07/21 (Singulair) multivitamin 1 tab PO DAILY 11/05/20 09/07/21 tiotropium bromide 2.5 2 puff INHALATION DAILY 02/08/21 09/07/21 mcg/actuation mist for inhalation nystatin 100,000 unit/mL oral 5 ml PO QID 09/07/21 09/07/21 suspension prednisone 5 mg tablet 5 mg PO DAILY 09/07/21 09/07/21 Previous Rx's Medication Instructions Recorded naltrexone 50 mg tablet 50 mg PO DAILY #30 tab 10/09/20 alcohol swabs (Alcohol Pads) 1 pad TOPICAL DIRECTED #200 ea 10/11/20 blood sugar diagnostic (Accu-Chek #100 ea 10/11/20 Guide test strips) blood-glucose meter (Accu-Chek #1 ea 10/11/20 Guide Glucose Meter) lancets (Accu-Chek Multiclix #100 ea 10/11/20 Lancet) ipratropium 0.5 mg-albuterol 3 mg 3 ml INHALATION Q4-6H PRN #180 ml 12/13/20 (2.5 mg base)/3 mL nebulization soln meloxicam 15 mg tablet 15 mg PO DAILY #30 tab 02/03/21 baclofen 10 mg tablet 10 mg PO BID PRN 30 Days #60 tab 03/15/21 lisinopril 20 1 tab PO DAILY 30 Days #30 tab 04/08/21 mg-hydrochlorothiazide 12.5 mg tablet doxycycline hyclate 100 mg tablet 100 mg PO Q12H #7 tab 04/20/21 docusate sodium 100 mg capsule 100 mg PO BEDTIME #30 cap 04/26/21 methylcellulose (laxative) 500 mg 500 mg PO DAILY #30 tab 04/26/21 tablet (Citrucel) bisacodyl 5 mg tablet,delayed 10 mg PO ONCE 1 Days #2 tab 06/02/21 release (Dulcolax (bisacodyl)) polyethylene glycol 3350 17 238 g PO ONCE #238 g 06/02/21 gram/dose oral powder (Miralax) acetaminophen 650 mg 650 mg PO Q12H 30 Days #60 tab 08/18/21 tablet,extended release (Tylenol Arthritis Pain) alpha lipoic acid 600 mg capsule 600 mg PO BID 30 Days #60 cap 09/07/21 pyridoxine (vitamin B6) 100 mg 100 mg PO BID 30 Days #60 tab 09/07/21 tablet metformin 1,000 mg tablet 500 mg PO DAILY 30 Days #15 tab 09/22/21 codeine 10 mg-guaifenesin 100 mg/5 10 ml PO Q4-6H PRN #237 ml 10/14/21 mL oral liquid doxycycline hyclate 100 mg tablet 100 mg PO BID #20 tab 10/14/21 prednisone 20 mg tablet 40 mg PO DAILY #10 tab 10/14/21 nystatin 100,000 unit/gram topical 1 appl TOPICAL BID 30 Days #60 g 11/08/21 powder diphenhydramine HCl 25 mg tablet 50 mg PO Q6H #30 tab 11/11/21 (Benadryl Allergy) lorazepam 1 mg tablet (Ativan) 1 mg PO TID PRN #6 tab 11/11/21 prednisone 10 mg tablets in a dose 10 mg PO DAILY #48 ea 11/11/21 pack tramadol 50 mg tablet 50 mg PO DAILY 14 Days #14 tab 11/11/21 Allergies Allergy/AdvReac Type Severity Reaction Status Date / Time hydromorphone [From DILAUDID] Allergy Severe SEIZURES Verified 11/11/21 11:45 oxycodone [OXYCODONE] Allergy Severe SEIZURES Verified 10/14/21 11:44 gabapentin [GABAPENTIN] Allergy Intermediate MUSCLE ACHE Verified 10/14/21 11:44 albuterol Allergy Mild Trouble Verified 10/14/21 11:44 breathing;MDI use only bupropion [From WELLBUTRIN] Allergy Unknown SEIZURES Verified 10/14/21 11:44 phenytoin [Dilantin] Allergy Unknown Unknown Verified 10/14/21 11:44 Review of Systems Review of Systems: Constitutional: No Fever, No Chills ENT/Mouth: No sore throat, No Rhinorrhea, No Swallowing Difficulty Eyes: No Eye Pain, No Swelling, No Redness Cardiovascular: No Chest Pain, No SOB, No Orthopnea, No Edema Respiratory: +Cough, No Sputum, No Wheezing, No dyspnea Gastrointestinal: No Nausea, No Vomiting, No Diarrhea, No abdominal Pain Musculoskeletal: No joint pain, No Myalgias Skin: +Skin Lesions, + rash Neuro: No Weakness, No Numbness, No Dizziness, No Headache Psych: + Anxiety/Panic, No Depression Heme/Lymph: No Bruising, No Lymphadenopathy PMFSH Past Medical History Medical History ADHD Alcohol abuse Anxiety Asthma Asthma-COPD overlap syndrome Cocaine abuse COPD (chronic obstructive pulmonary disease) DMII (diabetes mellitus, type 2) Epilepsy Fibromyalgia History of suicide attempt HTN (hypertension) Obese Sleep apnea Tracheomalacia Surgical History History of cholecystectomy Previous section Family History Family History Father No problems noted. Mother Cervical cancer Mental health disorder Social History Social History Household Members: Family Housing: House Do you presently have visiting nurse or other home services: No Alcohol intake: unknown Patient Tobacco Use Status: Former Tobacco user Cigarettes Per Day: 25 Years Smoked: 20 e-Cigarette/Vaping Use: Currently Using Second Hand Smoke Exposure: No Substance Use Type: Marijuana Advance Directives: Yes Advance Directives on File: Yes Advance Directives Date on File: 11/05/20 service: No Current occupational status: unemployed Physical Exam ED Vital Signs: Vital Signs - 24 hr 11/11/21 11:46 11/11/21 13:53 Temperature 97.2 F Pulse Rate 93 79 Respiratory Rate 18 16 Blood Pressure 138/81 112/62 Pulse Oximetry 99 99 BMI result Body Mass Index 34.2 Appearance: Alert. Oriented X3. No acute distress. Eyes: Pupils equal, round and reactive to light. ENT: Pharynx normal. No lip or tongue swelling. Normal voice. Neck: Normal inspection. Neck supple. CVS: Normal heart rate and rhythm. Pulses normal. Respiratory: No respiratory distress. Breath sounds with expiratory wheezes throughout right lung romero. Abdomen: Soft and nontender. +BS x4 Skin: Skin warm and dry. There is a diffuse, erythematous, slightly raised maculopapular rash on her left proximal upper extremity, across her entire posterior and anterior trunk, abdomen, inguinal area with some few punctate lesions of the lower extremities. Rash is warm and tender. Extremities: No lower extremity edema. Neuro: Oriented X 3. No motor deficit. No sensory deficit. Course Course Course Narrative: 50-year-old female presents to the ER with a diffuse urticarial rash that started 2 days ago after her PICC line was cleaned by her [facility] nurse. She reports the rash started in this area and spread all over her body. Doubt reaction to antibiotic. She has been taking Benadryl intermittently with minimal improvement in her rash or itching. She has no airway involvement. Given the diffuse distribution will give her IV Solu-Medrol 125 mg, IV Benadryl 50 mg and IV Pepcid. Will monitor. Reevaluation(s) Reevaluation #1: Slight improvement in the rash is on the distal extremities, patient continues to report ongoing pruritus. Her airway remains patent with no facial or oral swelling. At this time patient is stable for discharge home-will prescribe a slow prednisone taper given the extent of the rash. Also give her around the clock Benadryl. She has an appointment with her PCP next week for follow-up after discharge from the hospital. She was instructed to return to the ER if she has worsening symptoms or involvement of the airway or mouth. Discharge Plan Discharge Clinical Impression: Urticaria Patient Disposition: Home, Self-Care Instructions: Urticaria (ED), Acute Rash (ED) Additional Instructions: Take the prescribed steroids as directed in a tapering fashion. complete the entire taper Take Benadryl 50 mg every 6 hours until itching and rash are resolved Recommend trial of oatmeal bath at home - found over the counter (Aveeno) Follow up with your PCP If you develop new or worsening symptoms call 911 or come back to the ER for further evaluation. Prescriptions: New prednisone 10 mg tablets,dose pack 10 mg PO DAILY Qty: 48 0RF Rx Instructions: take 5 tabs x3 days then 4 tabs x3 days, 3 tabs x3 days, 2 tabs x3 days & 1 tab for 3 days. discard remainder diphenhydramine HCl [Benadryl Allergy] 25 mg tablet 50 mg PO Q6H Qty: 30 0RF lorazepam [Ativan] 1 mg tablet 1 mg PO TID PRN (Reason: anxiety) Qty: 6 0RF No Action naltrexone 50 mg tablet 50 mg PO DAILY Qty: 30 1RF ipratropium-albuterol 0.5 mg-3 mg(2.5 mg base)/3 mL solution for nebulization 3 ml inhalation Q4-6H PRN (Reason: shortness of breath or wheezing) Qty: 180 0RF meloxicam 15 mg tablet 15 mg PO DAILY Qty: 30 2RF baclofen 10 mg tablet 10 mg PO BID PRN (Reason: muscle spasm) 30 Days Qty: 60 2RF acetaminophen [Tylenol Arthritis Pain] 650 mg tablet extended release 650 mg PO Q12H 30 Days Qty: 60 3RF metformin 1,000 mg tablet 500 mg PO DAILY 30 Days Qty: 15 3RF nystatin 100,000 unit/gram powder 1 appl topical BID 30 Days Qty: 60 1RF tramadol 50 mg tablet 50 mg PO DAILY 14 Days Qty: 14 0RF Rx Instructions: will discontinue naltrexone over the next 24 hours doxycycline hyclate 100 mg Tablet 100 mg PO Q12H Qty: 7 0RF dextroamphetamine-amphetamine 20 mg tablet 20 mg PO BID@0700,1600 0RF fluticasone propion-salmeterol 113-14 mcg/actuation Aerosol Powdr Breath Activated 1 inh INHALATION BID 0RF montelukast [Singulair] 10 mg tablet 10 mg PO BEDTIME 0RF (DME) blood-glucose meter [Accu-Chek Guide Glucose Meter] Misc See Rx Instructions .ROUTE .MEDSUPPLY Qty: 1 0RF Rx Instructions: As directed (DME) Accu-Chek Guide test strips Strip See Rx Instructions .ROUTE .MEDSUPPLY Qty: 100 0RF Rx Instructions: As directed (DME) lancets [Accu-Chek Multiclix Lancet] Misc See Rx Instructions .ROUTE .MEDSUPPLY Qty: 100 0RF Rx Instructions: As directed alcohol swabs [Alcohol Pads] Pads, Medicated 1 pad topical DIRECTED Qty: 200 0RF multivitamin Tablet 1 tab PO DAILY 0RF prednisone 20 mg tablet 40 mg PO DAILY Qty: 10 0RF codeine-guaifenesin 10-100 mg/5 mL liquid 10 ml PO Q4-6H PRN (Reason: Cough) Qty: 237 0RF doxycycline hyclate 100 mg tablet 100 mg PO BID Qty: 20 0RF lisinopril-hydrochlorothiazide 20-12.5 mg tablet 1 tab PO DAILY 30 Days Qty: 30 3RF tiotropium bromide 2.5 mcg/actuation mist 2 puff inhalation DAILY 0RF prednisone 5 mg tablet 5 mg PO DAILY 0RF nystatin 100,000 unit/mL suspension 5 ml PO QID 0RF alpha lipoic acid 600 mg capsule 600 mg PO BID 30 Days Qty: 60 3RF pyridoxine (vitamin B6) 100 mg tablet 100 mg PO BID 30 Days Qty: 60 2RF bisacodyl [Dulcolax (bisacodyl)] 5 mg tablet,delayed release (DR/EC) 10 mg PO ONCE 1 Days Qty: 2 0RF Rx Instructions: take 2 tabs at noon the day before your colonoscopy polyethylene glycol 3350 [Miralax] 17 gram/dose powder 238 g PO ONCE Qty: 238 0RF Rx Instructions: As directed by gastroenterology department at [facility] docusate sodium 100 mg capsule 100 mg PO BEDTIME Qty: 30 3RF Citrucel 500 mg tablet 500 mg PO DAILY Qty: 30 2RF Rx Instructions: take it with full glass of water Referrals: Jaison Navarrete PA-C [Primary Care Provider] - 2 days (severe urticarial rash) Interventions: ED Discharge Assessment Last Done: 11/11/21 14:43 Discharge Date/Time: 11/11/21 14:45
[2021-11-11] MEDS: Famotidine/PF 20 MG/2 ML VIAL IVPUSH (13:36)
[2021-11-11] MEDS: diphenhydrAMINE HCL 50 MG/ML VIAL IVPUSH (13:36)
[2021-11-11] MEDS: methylPREDNISolone Sod Succ 125 MG/2 ML VIAL IVPUSH (13:36)
[2021-11-11 13:53] VITALS: BP 112/62; PULSE 79; RESP 16; O2SAT 99
== END 2021-11-11 14:45 | disposition home or self-care (01) ==
PROVIDERS: Emergency Provider Emergency Medicine; PCP Physician Assistant
DX: L50.9 Urticaria, unspecified (principal); E11.9 Type 2 diabetes mellitus without complications; I10 Essential (primary) hypertension; Z86.14 Personal history of Methicillin resistant Staphylococcus aureus infection
CPT/HCPCS: 96374; 96375; 99284; J1200; J2930

== ENCOUNTER → 2021-12-17 12:58 | Outpatient (BNVA) | payer BC, MEDICARE, SELFPAY | PROVIDERS: Visit Provider Internal Medicine | DX: F10.10 Alcohol abuse, uncomplicated (principal); F14.10 Cocaine abuse, uncomplicated | CPT/HCPCS: 80305 ==

== ENCOUNTER 2021-12-20 10:05 | Emergency (ER) | payer BC, MEDICARE, SELFPAY ==
--- NOTE | ~2021-12-20 | XR_ITS ---
EXAMINATION: XR CHEST CLINICAL INFORMATION: Shortness of breath. Productive cough. COMPARISON: 10/14/2021 TECHNIQUE: Frontal view of the chest was obtained. FINDINGS: The lungs are well expanded. Right midlung patchy opacity peripherally. Linear left basilar atelectasis. No effusion or edema. No pneumothorax. The cardiomediastinal silhouette is within normal limits. XR/XR chest 1V IMPRESSION: Peripheral right midlung airspace opacity suspicious for pneumonia. Follow-up to resolution.
[2021-12-20 11:10] VITALS: BP 174/100; PULSE 97; RESP 20; TEMP 36.6; O2SAT 96; BMI 34.4
[2021-12-20 11:22] LABS: MANUAL DIFF FLAG NO
[2021-12-20 11:24] LABS: Basophils Percent Auto 0.2 % (0-2); Eosinophils Absolute Auto 0.1 X10*3/uL (0.0-0.4); Eosinophils Percent Auto 0.4 % (0-4); Hematocrit 37.8 % (37.0-47.0); Hemoglobin 12.8 g/dl (12.0-16.0); Imm Gran Abs Auto 0.34 X10*3/uL (0.00-0.03); Lymphocytes Absolute Auto 2.6 X10*3/uL (1.2-4.9); Lymphocytes Percent Auto 15.5 % (20-40); Mean Corpuscular HGB Conc 33.9 g/dl (31.0-35.0); Mean Corpuscular Hemoglobin 32.2 pg (27.0-33.0); Mean Platelet Volume 9.7 fL (9.4-12.3); Monocytes Absolute Auto 1.1 X10*3/uL (0.1-1.2); Monocytes Percent Auto 6.8 % (2-11); Neutrophils Absolute Auto 12.6 x10*3/uL (2.0-8.3); Neutrophils Percent Auto 75.1 % (45-73); Platelet Count 292 X10*3/uL (160-400); Red Blood Count 3.98 X10*6/uL (4.20-5.50); Red Cell Distribution Width 15.6 % (11.0-16.0); White Blood Count 16.8 X10*3/uL (4.8-10.8)
--- NOTE | 2021-12-20 11:24 | ED_ITS ---
HPI - Asthma General Chief Complaint: Asthma Stated Complaint: Asthma Time Seen by Provider: 12/20/21 11:24 Source: patient Mode of arrival: ambulatory Limitations: no limitations History of Present Illness HPI Narrative: 51 y/o female with history of severe persistent asthma, TEO, diabetes, ADHD, anxiety/depression, former ETOH and cocaine user, history of recent MRSA pneumonia requiring admission to [facility] for 2 weeks in October and recent admission there with discharge yesterday presents to the ER with productive cough. She states she has been bringing up green phlegm for several days. When she was admitted at [facility] they did respiratory culture and it came up on her patient portal yesterday morning growing MRSA. She was not discharged on antibiotics. She denies any fever or chills at home. MD complaint: other (Productive cough) Onset (ago): day(s) Severity: similar to prior Context: recent URI Associated symptoms: productive cough Asthma History: history of frequent attacks and history of prior ED visit Treatments Prior to Arrival: inhaled bronchodilator Related Data Current Asthma Therapy: inhaled bronchodilator and recent oral steroid Home Medications Medication Instructions Recorded Confirmed dextroamphetamine-amphetamine 20 20 mg PO BID@0700,1600 07/26/20 11/17/21 mg tablet multivitamin 1 tab PO DAILY 11/05/20 11/17/21 tiotropium bromide 2.5 2 puff INHALATION DAILY 02/08/21 11/17/21 mcg/actuation mist for inhalation nystatin 100,000 unit/mL oral 5 ml PO QID 09/07/21 11/17/21 suspension prednisone 5 mg tablet 5 mg PO DAILY 09/07/21 11/17/21 Previous Rx's Medication Instructions Recorded alcohol swabs (Alcohol Pads) 1 pad TOPICAL DIRECTED #200 ea 10/11/20 blood sugar diagnostic (Accu-Chek #100 ea 10/11/20 Guide test strips) blood-glucose meter (Accu-Chek #1 ea 10/11/20 Guide Glucose Meter) lancets (Accu-Chek Multiclix #100 ea 10/11/20 Lancet) ipratropium 0.5 mg-albuterol 3 mg 3 ml INHALATION Q4-6H PRN #180 ml 12/13/20 (2.5 mg base)/3 mL nebulization soln meloxicam 15 mg tablet 15 mg PO DAILY #30 tab 02/03/21 baclofen 10 mg tablet 10 mg PO BID PRN 30 Days #60 tab 03/15/21 lisinopril 20 1 tab PO DAILY 30 Days #30 tab 04/08/21 mg-hydrochlorothiazide 12.5 mg tablet acetaminophen 650 mg 650 mg PO Q12H 30 Days #60 tab 08/18/21 tablet,extended release (Tylenol Arthritis Pain) pyridoxine (vitamin B6) 100 mg 100 mg PO BID 30 Days #60 tab 09/07/21 tablet metformin 1,000 mg tablet 500 mg PO DAILY 30 Days #15 tab 09/22/21 prednisone 20 mg tablet 40 mg PO DAILY #10 tab 10/14/21 nystatin 100,000 unit/gram topical 1 appl TOPICAL BID 30 Days #60 g 11/08/21 powder diphenhydramine HCl 25 mg tablet 50 mg PO Q6H #30 tab 11/11/21 (Benadryl Allergy) lorazepam 1 mg tablet (Ativan) 1 mg PO TID PRN #6 tab 11/11/21 prednisone 10 mg tablets in a dose 10 mg PO DAILY #48 ea 11/11/21 pack cimetidine 200 mg tablet 200 mg PO BEDTIME 20 Days #20 tab 11/17/21 disulfiram 250 mg tablet 250 mg PO DAILY 30 Days #30 tab 12/17/21 disulfiram 250 mg tablet 250 mg PO DAILY 30 Days #30 tab 12/17/21 minocycline 100 mg capsule 100 mg PO BID #28 cap 12/20/21 tramadol 50 mg tablet 50 mg PO DAILY 14 Days #14 tab 12/20/21 Allergies Allergy/AdvReac Type Severity Reaction Status Date / Time hydromorphone [From DILAUDID] Allergy Severe SEIZURES Verified 12/20/21 11:10 oxycodone [OXYCODONE] Allergy Severe SEIZURES Verified 12/20/21 11:10 vancomycin Allergy Severe Rash Verified 12/20/21 11:10 gabapentin [GABAPENTIN] Allergy Intermediate MUSCLE ACHE Verified 12/20/21 11:10 albuterol Allergy Mild Trouble Verified 12/20/21 11:10 breathing;MDI use only bupropion [From WELLBUTRIN] Allergy Unknown SEIZURES Verified 12/20/21 11:10 phenytoin [Dilantin] Allergy Unknown Unknown Verified 12/20/21 11:10 Review of Systems Review of Systems: Constitutional: No Fever, No Chills ENT/Mouth: No sore throat, No Rhinorrhea, No Swallowing Difficulty Cardiovascular: No Chest Pain, No SOB, No Orthopnea, No Edema Respiratory: +Cough, + Sputum, + Wheezing, +dyspnea Gastrointestinal: No Nausea, No Vomiting, No Diarrhea, No abdominal Pain Genitourinary: No Dysuria, No Urinary Frequency, No Hematuria Musculoskeletal: No joint pain, No Myalgias Skin: No Skin Lesions, No rash Neuro: No Weakness, No Numbness, No Dizziness, No Headache Psych: No Anxiety/Panic, No Depression Heme/Lymph: No Bruising, No Lymphadenopathy Endocrine: No Polyuria, No Polydipsia PMFSH Past Medical History Medical History ADHD Alcohol abuse Anxiety Asthma Asthma-COPD overlap syndrome Cocaine abuse COPD (chronic obstructive pulmonary disease) DMII (diabetes mellitus, type 2) Epilepsy Fibromyalgia History of suicide attempt HTN (hypertension) Obese Sleep apnea Tracheomalacia Surgical History History of cholecystectomy Previous section Family History Family History Father No problems noted. Mother Cervical cancer Mental health disorder Social History Social History Household Members: Family Housing: House Do you presently have visiting nurse or other home services: No Alcohol intake: former Patient Tobacco Use Status: Former Tobacco user Cigarettes Per Day: 25 Years Smoked: 20 e-Cigarette/Vaping Use: Currently Using Second Hand Smoke Exposure: No Use of substances other than those prescribed or required for medical reasons: Yes Substance Use Type: Marijuana Substance Use Type Other:: occ for anxiety Advance Directives: Yes Advance Directives on File: Yes Advance Directives Date on File: 11/05/20 service: No Current occupational status: unemployed Physical Exam Vital Signs: Vital Signs: Last Vital Signs Temp 98.7 F 12/20/21 12:54 Pulse 94 12/20/21 12:54 Resp 20 12/20/21 12:54 BP 146/83 H 12/20/21 12:54 Pulse Ox 96 12/20/21 12:54 BMI result Body Mass Index 34.4 Appearance: Alert. Oriented X3. No acute distress. Eyes: Pupils equal, round and reactive to light. ENT: Pharynx normal. Neck: Normal inspection. Neck supple. CVS: Normal heart rate and rhythm. Pulses normal. Respiratory: No respiratory distress. Breath sounds with end expiratory wheezes throughout. Speaks in complete sentences. Abdomen: Soft and nontender. +BS x4 Skin: Skin warm and dry. Normal skin color. Normal skin turgor. No rashes. Extremities: No lower extremity edema. Neuro: Oriented X 3. No motor deficit. No sensory deficit. Course Course Course Narrative: 51 y/o female with history of recent MRSA pneumonia in October and recent admission to [facility] for asthma presents to the ER with productive cough and recently found MRSA in her sputum culture. She is not hypoxic, speaking in full sentences on arrival. She has expiratory wheezes throughout but is not in any respiratory distress. She was discharged on a long perdnisone taper but no abx. Will check CXR and basic lab workup. Reevaluation(s) Reevaluation #1: CXR with question of RML infiltrate. WBC 16.8 which is likely partially elevated from being on IV steroids and now PO steroids. She is afebrile and not tachycardic. Her lactic acid is normal. At this time she is stable for discharge home with PO minocycline and plan to follow up with her [employer]/[facility] provider from [facility] on 12/30 as scheduled. She will come back to the ER if she develops worsening symptoms. [facility] - Asthma Lab Data Result diagrams: 12/20/21 11:18 12/20/21 11:18 Labs: Lab Results 12/20/21 12/20/21 12/20/21 Range/Units 11:18 11:18 12:35 WBC 16.8 H (4.8-10.8) X10*3/uL RBC 3.98 L (4.20-5.50) X10*6/uL Hgb 12.8 (12.0-16.0) g/dl Hct 37.8 (37.0-47.0) % MCV 95.0 (80.0-98.0) fL MCH 32.2 (27.0-33.0) pg MCHC 33.9 (31.0-35.0) g/dl RDW 15.6 (11.0-16.0) % Plt Count 292 D (160-400) X10*3/uL MPV 9.7 (9.4-12.3) fL Immature Gran % (Auto) 2.0 H (0.0-0.4) % Neut % (Auto) 75.1 H (45-73) % Lymph % (Auto) 15.5 L (20-40) % Morrow % (Auto) 6.8 (2-11) % Eos % (Auto) 0.4 (0-4) % Baso % (Auto) 0.2 (0-2) % Lymph # (Auto) 2.6 (1.2-4.9) X10*3/uL Morrow # (Auto) 1.1 (0.1-1.2) X10*3/uL Eos # (Auto) 0.1 (0.0-0.4) X10*3/uL Baso # (Auto) 0.0 (0.0-0.2) X10*3/uL Abs Immat Gran (auto) 0.34 H (0.00-0.03) X10*3/uL Absolute Neuts (auto) 12.6 H (2.0-8.3) x10*3/uL Absolute Nucleated RBC 0.000 (0.0-0.012) X10*3/uL Nucleated RBC % (auto) 0.0 (0.0-0.2) /100WBC Sodium 137 (135-145) mmol/L Potassium 3.6 (3.3-5.1) mmol/L Chloride 103 (96-108) mmol/L Carbon Dioxide 26 (22-29) mmol/L Anion Gap 12 (12-20) BUN 14 (9-16) mg/dL Creatinine 0.74 (0.5-1.4) mg/dL Estim Creat Clear Calc 87.6 Estimated GFR > 60 Random Glucose 293 H (60-115) mg/dL Lactic Acid 1.4 (0.5-2.0) mmol/L Calcium 9.5 (8.4-10.2) mg/dL Critical Care Time Critical Care Time Critical Care Time: No Discharge Plan Discharge Clinical Impression: MRSA pneumonia Patient Disposition: Home, Self-Care Instructions: MRSA (Methicillin-Resistant Staphylococcus Aureus) (ED), Pn eumonia (ED) Additional Instructions: Take the prescribed antibiotic as directed Use your nebulizers every 4 hours until you are feeling better Follow up with your doctor as scheduled on 12/30 If you develop new or worsening symptoms call 911 or come back to the ER for further evaluation. Prescriptions: New minocycline 100 mg capsule 100 mg PO BID Qty: 28 0RF No Action ipratropium-albuterol 0.5 mg-3 mg(2.5 mg base)/3 mL solution for nebulization 3 ml inhalation Q4-6H PRN (Reason: shortness of breath or wheezing) Qty: 180 0RF meloxicam 15 mg tablet 15 mg PO DAILY Qty: 30 2RF baclofen 10 mg tablet 10 mg PO BID PRN (Reason: muscle spasm) 30 Days Qty: 60 2RF acetaminophen [Tylenol Arthritis Pain] 650 mg tablet extended release 650 mg PO Q12H 30 Days Qty: 60 3RF metformin 1,000 mg tablet 500 mg PO DAILY 30 Days Qty: 15 3RF nystatin 100,000 unit/gram powder 1 appl topical BID 30 Days Qty: 60 1RF tramadol 50 mg tablet 50 mg PO DAILY 14 Days Qty: 14 0RF Rx Instructions: will discontinue naltrexone over the next 24 hours dextroamphetamine-amphetamine 20 mg tablet 20 mg PO BID@0700,1600 0RF (DME) blood-glucose meter [Accu-Chek Guide Glucose Meter] [facility] [place] See Rx Instructions .ROUTE .MEDSUPPLY Qty: 1 0RF Rx Instructions: As directed (DME) Accu-Chek Guide test strips Strip See Rx Instructions .ROUTE .MEDSUPPLY Qty: 100 0RF Rx Instructions: As directed (DME) lancets [Accu-Chek Multiclix Lancet] [facility] [place] See Rx Instructions .ROUTE .MEDSUPPLY Qty: 100 0RF Rx Instructions: As directed alcohol swabs [Alcohol Pads] Pads, Medicated 1 pad topical DIRECTED Qty: 200 0RF multivitamin Tablet 1 tab PO DAILY 0RF prednisone 20 mg tablet 40 mg PO DAILY Qty: 10 0RF prednisone 10 mg tablets,dose pack 10 mg PO DAILY Qty: 48 0RF Rx Instructions: take 5 tabs x3 days then 4 tabs x3 days, 3 tabs x3 days, 2 tabs x3 days & 1 tab for 3 days. discard remainder diphenhydramine HCl [Benadryl Allergy] 25 mg tablet 50 mg PO Q6H Qty: 30 0RF lorazepam [Ativan] 1 mg tablet 1 mg PO TID PRN (Reason: anxiety) Qty: 6 0RF lisinopril-hydrochlorothiazide 20-12.5 mg tablet 1 tab PO DAILY 30 Days Qty: 30 3RF tiotropium bromide 2.5 mcg/actuation mist 2 puff inhalation DAILY 0RF prednisone 5 mg tablet 5 mg PO DAILY 0RF nystatin 100,000 unit/mL suspension 5 ml PO QID 0RF pyridoxine (vitamin B6) 100 mg tablet 100 mg PO BID 30 Days Qty: 60 2RF cimetidine 200 mg tablet 200 mg PO BEDTIME 20 Days Qty: 20 0RF disulfiram 250 mg tablet 250 mg PO DAILY 30 Days Qty: 30 0RF disulfiram 250 mg tablet 250 mg PO DAILY 30 Days Qty: 30 0RF Referrals: Jaison Navarrete PA-C [Primary Care Provider] - 1 week
[2021-12-20 11:48] LABS: Anion Gap 12 (12-20); Blood Urea Nitrogen 14 mg/dL (9-16); Calcium 9.5 mg/dL (8.4-10.2); Carbon Dioxide 26 mmol/L (22-29); Chloride 103 mmol/L (96-108); Creatinine Clr Calc Pharmacy 87.6; Estimated Glomerular Filt Rate > 60; Glucose Random 293 mg/dL (60-115); Potassium 3.6 mmol/L (3.3-5.1); Sodium 137 mmol/L (135-145)
[2021-12-20 12:54] VITALS: BP 146/83; PULSE 94; RESP 20; TEMP 37.1; O2SAT 96
[2021-12-20 12:54] LABS: Lactic Acid 1.4 mmol/L (0.5-2.0)
--- NOTE | 2021-12-20 13:15 | PC.NURSE ---
pt a&ox3, vss, pt has new MRSA dx, was recently d/c from [facility] for same, provider in room w pt, plan to discharge w abx.
== END 2021-12-20 13:13 | disposition home or self-care (01) ==
LOC: HO.ED 13:00
PROVIDERS: Physician Assistant; Emergency Provider Emergency Medicine; PCP Physician Assistant
DX: J15.212 Pneumonia due to Methicillin resistant Staphylococcus aureus (principal); E11.9 Type 2 diabetes mellitus without complications
CPT/HCPCS: 36415; 71045; 80048; 83605; 85025; 87040; 99283; 99284

== ENCOUNTER → 2021-12-24 13:59 | Outpatient (BNVA) | payer BC, MEDICARE, SELFPAY | PROVIDERS: PCP Physician Assistant; Visit Provider Internal Medicine | DX: Z51.81 Encounter for therapeutic drug level monitoring (principal); F10.20 Alcohol dependence, uncomplicated | CPT/HCPCS: 80305 ==

== ENCOUNTER → 2022-01-05 14:17 | Outpatient (BNVA) | payer BC, MEDICARE, SELFPAY | PROVIDERS: PCP Physician Assistant; Visit Provider Internal Medicine | DX: Z51.81 Encounter for therapeutic drug level monitoring (principal); F10.10 Alcohol abuse, uncomplicated | CPT/HCPCS: 80305 ==

== ENCOUNTER 2022-01-15 09:44 | Emergency (ER) | payer BC, MEDICARE, SELFPAY ==
--- NOTE | ~2022-01-15 | XR_ITS ---
EXAMINATION: XR chest 2V CLINICAL INFORMATION: Reason for Exam cough, wheezing COMPARISON: Chest radiograph 12/20/2021 TECHNIQUE: 2 views of the chest XR/XR chest 2V FINDINGS/IMPRESSION: Interval improvement in the previously seen right midlung airspace opacity, which may reflect resolving infection. Few bibasilar linear airspace opacities which may reflect atelectasis. No pneumothorax. No pleural effusion. Normal cardiomediastinal silhouette.
[2022-01-15 10:02] VITALS: BP 190/93; PULSE 92; RESP 23; TEMP 36.7; O2SAT 98; BMI 33.2
--- NOTE | 2022-01-15 10:10 | ED_ITS ---
HPI - Asthma General Chief Complaint: Asthma Stated Complaint: asthma Time Seen by Provider: 01/15/22 10:10 Source: patient Mode of arrival: ambulatory Limitations: no limitations History of Present Illness HPI Narrative: 51 y/o female history of severe persistent asthma, tracheomalacia, TEO, diabetes, ADHD, anxiety/depression, former ETOH abuse on current Antabuse and history of recent MRSA PNA in October who presents to the ER with 2 days of worsening wheezing and SOB. She recently completed a 2 week course of minocycline and then was started on doxycycline by her PCP 2 days ago. She states her woke her up this morning reporting increase in her wheezing. She has felt the sensation to bring up phlegm but she is unable to. No fever or chills at home. She has been using her nebs at home - xopenex and duonebs. She took her emergency prednisone 40 mg the last 2 days. MD complaint: shortness of breath and wheezing Onset (ago): day(s) (2) Severity: similar to prior Context: none known Associated symptoms: dry cough Asthma History: history of frequent attacks and history of prior ED visit Treatments Prior to Arrival: inhaled bronchodilator and inhaled steroid Related Data Current Asthma Therapy: inhaled bronchodilator, inhaled steroid and recent oral steroid Home Medications Medication Instructions Recorded Confirmed dextroamphetamine-amphetamine 20 20 mg PO BID@0700,1600 07/26/20 01/13/22 mg tablet multivitamin 1 tab PO DAILY 11/05/20 01/13/22 tiotropium bromide 2.5 2 puff INHALATION DAILY 02/08/21 01/13/22 mcg/actuation mist for inhalation nystatin 100,000 unit/mL oral 5 ml PO QID 09/07/21 01/13/22 suspension prednisone 5 mg tablet 5 mg PO DAILY 09/07/21 01/13/22 amlodipine 2.5 mg tablet 2.5 mg PO DAILY 12/22/21 01/13/22 budesonide-formoterol HFA 160 2 puff INHALATION BID 12/22/21 01/13/22 mcg-4.5 mcg/actuation aerosol inhaler (Symbicort) ipratropium bromide 0.02 % 1 INHALATION QID 12/22/21 01/13/22 solution for inhalation prednisone 10 mg tablet mg PO 12/22/21 01/13/22 Previous Rx's Medication Instructions Recorded alcohol swabs (Alcohol Pads) 1 pad TOPICAL DIRECTED #200 ea 10/11/20 blood sugar diagnostic (Accu-Chek #100 ea 10/11/20 Guide test strips) blood-glucose meter (Accu-Chek #1 ea 10/11/20 Guide Glucose Meter) lancets (Accu-Chek Multiclix #100 ea 10/11/20 Lancet) ipratropium 0.5 mg-albuterol 3 mg 3 ml INHALATION Q4-6H PRN #180 ml 12/13/20 (2.5 mg base)/3 mL nebulization soln lisinopril 20 1 tab PO DAILY 30 Days #30 tab 04/08/21 mg-hydrochlorothiazide 12.5 mg tablet acetaminophen 650 mg 650 mg PO Q12H 30 Days #60 tab 08/18/21 tablet,extended release (Tylenol Arthritis Pain) pyridoxine (vitamin B6) 100 mg 100 mg PO BID 30 Days #60 tab 09/07/21 tablet metformin 1,000 mg tablet 500 mg PO DAILY 30 Days #15 tab 09/22/21 prednisone 20 mg tablet 40 mg PO DAILY #10 tab 10/14/21 nystatin 100,000 unit/gram topical 1 appl TOPICAL BID 30 Days #60 g 11/08/21 powder prednisone 10 mg tablets in a dose 10 mg PO DAILY #48 ea 11/11/21 pack cimetidine 200 mg tablet 200 mg PO BEDTIME 20 Days #20 tab 11/17/21 disulfiram 250 mg tablet 250 mg PO DAILY 30 Days #30 tab 12/17/21 hydroxyzine HCl 10 mg tablet 10 mg PO BID 15 Days #30 tab 12/22/21 hydroxyzine pamoate 25 mg capsule 25 mg PO TID PRN 7 Days #21 cap 12/24/21 (Vistaril) naltrexone 50 mg tablet 50 mg PO DAILY 14 Days #14 tab 12/24/21 clonidine HCl 0.1 mg tablet 0.1 mg PO TID 7 Days #21 tab 01/05/22 disulfiram 250 mg tablet 250 mg PO DAILY 30 Days #30 tab 01/05/22 baclofen 10 mg tablet 10 mg PO BID PRN 30 Days #60 tab 01/13/22 doxycycline monohydrate 100 mg 100 mg PO BID 7 Days #14 cap 01/13/22 capsule levalbuterol tartrate 45 1 - 2 puff INHALATION Q4H 30 Days 04/28/22 mcg/actuation aerosol inhaler #15 g (Xopenex HFA) meloxicam 15 mg tablet 15 mg PO DAILY #30 tab 01/13/22 guaifenesin 1,200 mg tablet, 1,200 mg PO Q12H #14 tab 01/15/22 extended release 12 hr (Mucinex) hydroxyzine HCl 50 mg tablet 50 mg PO TID PRN #14 tab 01/15/22 montelukast 10 mg tablet 10 mg PO BEDTIME #30 tab 01/15/22 (Singulair) prednisone 20 mg tablet 40 mg PO DAILY #10 tab 01/15/22 Allergies Allergy/AdvReac Type Severity Reaction Status Date / Time hydromorphone [From DILAUDID] Allergy Severe SEIZURES Verified 01/13/22 10:49 oxycodone [OXYCODONE] Allergy Severe SEIZURES Verified 01/13/22 10:49 vancomycin Allergy Severe Rash Verified 01/13/22 10:49 gabapentin [GABAPENTIN] Allergy Intermediate MUSCLE ACHE Verified 01/13/22 10:49 albuterol Allergy Mild Trouble Verified 01/13/22 10:49 breathing;MDI use only bupropion [From WELLBUTRIN] Allergy Unknown SEIZURES Verified 01/13/22 10:49 phenytoin [Dilantin] Allergy Unknown Unknown Verified 01/13/22 10:49 Review of Systems 2 Review of Systems: Constitutional: No Fever, No Chills ENT/Mouth: No sore throat, No Rhinorrhea Cardiovascular: No Chest Pain, + SOB, No Orthopnea, No Edema Respiratory: + Cough, No Sputum, + Wheezing, + dyspnea Gastrointestinal: No Nausea, No Vomiting, No Diarrhea, No abdominal Pain Genitourinary: No Dysuria, No Urinary Frequency, No Hematuria Musculoskeletal: No joint pain, + Myalgias Skin: No Skin Lesions, No rash Neuro: No Weakness, No Numbness, No Dizziness, No Headache Psych: +Anxiety/Panic, No Depression Heme/Lymph: No Bruising, No Lymphadenopathy Endocrine: No Polyuria, No Polydipsia PMFSH Past Medical History Medical History ADHD Alcohol abuse Anxiety Asthma Asthma-COPD overlap syndrome Cocaine abuse COPD (chronic obstructive pulmonary disease) DMII (diabetes mellitus, type 2) Epilepsy Fibromyalgia History of suicide attempt HTN (hypertension) Obese Sleep apnea Tracheomalacia Surgical History History of cholecystectomy Previous section Family History Family History Father No problems noted. Mother Cervical cancer Mental health disorder Social History Social History Household Members: Family Housing: House Do you presently have visiting nurse or other home services: No Alcohol intake: former Patient Tobacco Use Status: Former Tobacco user Cigarettes Per Day: 25 Years Smoked: 20 e-Cigarette/Vaping Use: Currently Using Second Hand Smoke Exposure: No Substance Use Type: Marijuana Advance Directives: Yes Advance Directives on File: Yes Advance Directives Date on File: 11/05/20 Patient : No service: No Current occupational status: unemployed Cognitive needs: Yes (Pt would like a cane ) Hearing needs: Yes (?hearing loss mostly from right ear.) Vision needs: Yes (Pt was seen 6 months and exam was good just need readig glasses.) Physical Exam Vital Signs: Vital Signs: Last Vital Signs Temp 98.0 F 01/15/22 10:02 Pulse 97 01/15/22 11:10 Resp 21 H 01/15/22 11:10 BP 190/93 H 01/15/22 10:02 Pulse Ox 98 01/15/22 11:10 BMI result Body Mass Index 33.2 Appearance: Alert. Oriented X3. No acute distress. Eyes: Pupils equal, round and reactive to light. ENT: Pharynx normal. Neck: Normal inspection. Neck supple. CVS: Normal heart rate and rhythm. Pulses normal. Respiratory: No respiratory distress, speaks in complete sentences Breath sounds with expiratory wheezes throughout, poor air entry. no rhonchi or rales Abdomen: Soft and nontender. +BS x4 Skin: Skin warm and dry. Normal skin color. Normal skin turgor. No rashes. Extremities: No lower extremity edema. No calf tenderness Neuro: Oriented X 3. Grossly normal, nonfocal Course Course Course Narrative: 51-year-old female with history of severe persistent asthma, recent pneumonia, frequent ED visits for her asthma who presents to the ER with worsening shortnes s of breath and wheezing for the last 2 days. On examination she has expiratory wheezes throughout with poor air entry. Respiratory rate low 20s but speaking in complete sentences. Will plan to repeat chest x-ray to ensure resolution of recent pneumonia and given hour long nebulizer treatment. Will reassess. Reevaluation(s) Reevaluation #1: Significant improvement in air entry but remains wheezy throughout. She states she feels slightly better, slightly anxious and tremulous after the nebulizer treatment. She feels well enough to be discharged home. She has plenty of Xopenex and DuoNeb nebulizers at home. Will plan to discharge with 5 day course of oral prednisone, will initiate Singulair, Mucinex and she will continue her previously prescribed doxycycline. She will return to the ER if worsening symptoms. Stable for DC home. Critical Care Time Critical Care Time Critical Care Time: No Discharge Plan Discharge Clinical Impression: Asthma with acute exacerbation Patient Disposition: Home, Self-Care Instructions: Asthma (DC) Additional Instructions: Your x-ray today showed improving infiltrate in the right middle lobe. Recommend using her nebulizer treatments around the clock until your wheezing is improved. Take all the prescribed medications as directed. Follow-up with your wash test checker as soon as possible. If you develop new or worsening symptoms call 911 or come back to the ER for further evaluation. Prescriptions: New prednisone 20 mg tablet 40 mg PO DAILY Qty: 10 0RF hydroxyzine HCl 50 mg tablet 50 mg PO TID PRN (Reason: anxiety) Qty: 14 0RF Mucinex 1,200 mg tablet extended release 12hr 1,200 mg PO Q12H Qty: 14 0RF montelukast [Singulair] 10 mg tablet 10 mg PO BEDTIME Qty: 30 0RF No Action ipratropium-albuterol 0.5 mg-3 mg(2.5 mg base)/3 mL solution for nebulization 3 ml inhalation Q4-6H PRN (Reason: shortness of breath or wheezing) Qty: 180 0RF acetaminophen [Tylenol Arthritis Pain] 650 mg tablet extended release 650 mg PO Q12H 30 Days Qty: 60 3RF metformin 1,000 mg tablet 500 mg PO DAILY 30 Days Qty: 15 3RF nystatin 100,000 unit/gram powder 1 appl topical BID 30 Days Qty: 60 1RF dextroamphetamine-amphetamine 20 mg tablet 20 mg PO BID@0700,1600 0RF (DME) blood-glucose meter [Accu-Chek Guide Glucose Meter] Misc See Rx Instructions .ROUTE .MEDSUPPLY Qty: 1 0RF Rx Instructions: As directed (DME) Accu-Chek Guide test strips Strip See Rx Instructions .ROUTE .MEDSUPPLY Qty: 100 0RF Rx Instructions: As directed (DME) lancets [Accu-Chek Multiclix Lancet] Misc See Rx Instructions .ROUTE .MEDSUPPLY Qty: 100 0RF Rx Instructions: As directed alcohol swabs [Alcohol Pads] Pads, Medicated 1 pad topical DIRECTED Qty: 200 0RF multivitamin Tablet 1 tab PO DAILY 0RF prednisone 20 mg tablet 40 mg PO DAILY Qty: 10 0RF prednisone 10 mg tablets,dose pack 10 mg PO DAILY Qty: 48 0RF Rx Instructions: take 5 tabs x3 days then 4 tabs x3 days, 3 tabs x3 days, 2 tabs x3 days & 1 tab for 3 days. discard remainder lisinopril-hydrochlorothiazide 20-12.5 mg tablet 1 tab PO DAILY 30 Days Qty: 30 3RF tiotropium bromide 2.5 mcg/actuation mist 2 puff inhalation DAILY 0RF prednisone 5 mg tablet 5 mg PO DAILY 0RF nystatin 100,000 unit/mL suspension 5 ml PO QID 0RF pyridoxine (vitamin B6) 100 mg tablet 100 mg PO BID 30 Days Qty: 60 2RF doxycycline monohydrate 100 mg capsule 100 mg PO BID 7 Days Qty: 14 0RF levalbuterol tartrate [Xopenex HFA] 45 mcg/actuation HFA aerosol inhaler 1 - 2 puff inhalation Q4H 30 Days Qty: 15 3RF meloxicam 15 mg tablet 15 mg PO DAILY Qty: 30 2RF baclofen 10 mg tablet 10 mg PO BID PRN (Reason: muscle spasm) 30 Days Qty: 60 2RF cimetidine 200 mg tablet 200 mg PO BEDTIME 20 Days Qty: 20 0RF prednisone 10 mg tablet PO 0RF budesonide-formoterol [Symbicort] 160-4.5 mcg/actuation HFA aerosol inhaler 2 puff inhalation BID 0RF amlodipine 2.5 mg tablet 2.5 mg PO DAILY 0RF ipratropium bromide 0.02 % solution 1 inhalation QID 0RF hydroxyzine HCl 10 mg tablet 10 mg PO BID 15 Days Qty: 30 0RF hydroxyzine pamoate [Vistaril] 25 mg capsule 25 mg PO TID PRN (Reason: itching) 7 Days Qty: 21 0RF naltrexone 50 mg tablet 50 mg PO DAILY 14 Days Qty: 14 0RF disulfiram 250 mg tablet 250 mg PO DAILY 30 Days Qty: 30 0RF disulfiram 250 mg tablet 250 mg PO DAILY 30 Days Qty: 30 1RF clonidine HCl 0.1 mg tablet 0.1 mg PO TID 7 Days Qty: 21 2RF Interventions: ED Discharge Assessment Last Done: 01/15/22 12:19 Discharge Date/Time: 01/15/22 12:19
[2022-01-15] MEDS: Albuterol Sulfate (0.083%) 2.5 MG/3 ML VIAL.NEB 10 MG INHALE (10:21)
[2022-01-15 10:26] VITALS: PULSE 86; RESP 18; O2SAT 100
[2022-01-15 11:10] VITALS: PULSE 97; RESP 21; O2SAT 98
--- NOTE | 2022-01-15 11:44 | PC.NURSE ---
PT UP OOB FOLLOWING RESP TREATMENT, DECREASED INSP WHEEZING, NO CP, SPEAKING IN FULL SENTENCES, NO NASAL FLARING OR RETRACTIONS NOTED.
== END 2022-01-15 12:19 | disposition home or self-care (01) ==
PROVIDERS: Emergency Provider Emergency Medicine; PCP Physician Assistant
DX: J45.51 Severe persistent asthma with (acute) exacerbation (principal); J44.9 Chronic obstructive pulmonary disease, unspecified; I10 Essential (primary) hypertension; E11.9 Type 2 diabetes mellitus without complications; G40.909 Epilepsy, unspecified, not intractable, without status epilepticus; F10.11 Alcohol abuse, in remission; Z79.899 Other long term (current) drug therapy
CPT/HCPCS: 71046; 94640; 99283; 99284

== ENCOUNTER 2022-02-01 11:42 | Outpatient (REF) | payer BC, MEDICARE, SELFPAY ==
[2022-02-01 12:25] LABS: INTERNATIONAL NORM RATIO 0.9 (0.9-1.1); Prothrombin Time 9.6 SEC (9.9-13.0)
[2022-02-01 12:40] LABS: Alanine Aminotransferase 26 U/L (0-31); Albumin Level 3.8 g/dL (3.5-5.0); Alkaline Phosphatase 78 U/L (39-117); Aspartate Amino Transferase 13 U/L (5-31); Bilirubin Direct < 0.2 mg/dL (0.0-0.5); Bilirubin Total 0.3 mg/dL (0.0-1.0); Total Protein 6.1 g/dL (6.5-8.0)
[2022-02-02 07:49] LABS: HBS Num1 204.89 mIU/mL (0-7.99); HBsAGNum1 0.24 S/CO (0.00-0.99); HIV AB/AG Nonreactive (Nonreactive); HIV Num 1 0.06 S/CO (0.00-0.99); Hepatitis B Surface Antigen Negative (Negative); ~Hepatitis B Surface Antibody REACTIVE (Nonreactive); ~Hepatitis C Antibody Nonreactive (Nonreactive)
[2022-02-02 07:58] LABS: Hepatitis A Antibody IgG Nonreactive (Nonreactive); ~Hepatitis A Antibody IgG 0.24 S/CO (0.00-0.99)
[2022-02-02 09:29] LABS: HBc Num1 7.82 S/CO (0.00-0.79)
[2022-02-02 10:28] LABS: HBc Num2 7.86 S/CO; HBc Num3 7.53 S/CO; Hepatitis B Core Antibody Reactive (Nonreactive)
[2022-02-04 09:25] LABS: TS Negative Control Passed; TS Panel A 1; TS Panel B 1; TS Positive Control Passed; TSpotTB Negative (Negative)
[2022-02-07 15:47] LABS: FIB-ALT 24 U/L (6-29); FIB-Alpha-2-Macroglobulin 151 mg/dL (106-279); FIB-Apolipoprotein A1 169 mg/dL (101-198); FIB-GGT 38 U/L (3-70); FIB-Haptoglobin 217 mg/dL (43-212); FIB-Total Bilirubin 0.3 mg/dL (0.2-1.2); Liver Fibrosis Score 0.05; Liver Fibrosis Stage F0; Nec Inflam Act Grade A0; Nec Inflam Act Score 0.07
== END 2022-02-01 11:43 | disposition home or self-care (01) ==
LOC: HO.LAB 11:42
PROVIDERS: PCP Physician Assistant; Visit Provider Internal Medicine
DX: Z01.84 Encounter for antibody response examination (principal); Z11.4 Encounter for screening for human immunodeficiency virus [HIV]; Z11.1 Encounter for screening for respiratory tuberculosis; F10.20 Alcohol dependence, uncomplicated
CPT/HCPCS: 36415; 80076; 81596; 85610; 86481; 86704; 86706; 86708; 86803; 87340; 87389

== ENCOUNTER → 2022-02-02 14:18 | Outpatient (BNVA) | payer BC, MEDICARE, SELFPAY | PROVIDERS: PCP Physician Assistant; Visit Provider Internal Medicine | DX: Z51.81 Encounter for therapeutic drug level monitoring (principal); F10.10 Alcohol abuse, uncomplicated; Z79.899 Other long term (current) drug therapy | CPT/HCPCS: 80305; 99212 ==

== ENCOUNTER 2022-02-08 10:26 | Emergency (ER) | payer BC, MEDICARE, SELFPAY ==
--- NOTE | ~2022-02-08 | XR_ITS ---
EXAMINATION: XR KNEE, RIGHT CLINICAL INFORMATION: Pain COMPARISON: Right knee 09/22/2018 TECHNIQUE: Four views of the right knee. FINDINGS: There is moderate loss of lateral and patellofemoral compartment joint space with periarticular spurring lateral compartment. There is mild suprapatellar joint effusion. No bony erosive changes or loose body seen. There is no acute fracture. XR/XR knee RT 2V IMPRESSION: Degenerative arthritic changes lateral and patellar 4 compartments with mild suprapatellar joint effusion. There is significant advancement in the degenerative changes of lateral compartment since 09/23/2018 exam.
[2022-02-08 12:39] VITALS: BP 173/93; PULSE 85; RESP 18; TEMP 36.3; O2SAT 98; BMI 33.4
[2022-02-08 13:38] VITALS: BP 180/115; PULSE 76; RESP 16; O2SAT 96
--- NOTE | 2022-02-08 14:32 | ED_ITS ---
HPI - Extremity Injury (Lower) General Chief Complaint: Extremity Injury, Lower Stated Complaint: R knee pain Time Seen by Provider: 02/08/22 14:27 Source: patient Mode of arrival: ambulatory Limitations: no limitations History of Present Illness HPI Narrative: Patient comes to the emergency room complaining of right knee pain. Patient states that she did not sustain any injury. Patient knows that she has arthr itis. Patient has been using ice and naproxen. Patient denies fever or chills, no erythema, denies IV drug use Related Data Home Medications Medication Instructions Recorded Confirmed dextroamphetamine-amphetamine 20 20 mg PO BID@0700,1600 07/26/20 01/13/22 mg tablet multivitamin 1 tab PO DAILY 11/05/20 01/13/22 tiotropium bromide 2.5 2 puff INHALATION DAILY 02/08/21 01/13/22 mcg/actuation mist for inhalation nystatin 100,000 unit/mL oral 5 ml PO QID 09/07/21 01/13/22 suspension prednisone 5 mg tablet 5 mg PO DAILY 09/07/21 01/13/22 amlodipine 2.5 mg tablet 2.5 mg PO DAILY 12/22/21 01/13/22 budesonide-formoterol HFA 160 2 puff INHALATION BID 12/22/21 01/13/22 mcg-4.5 mcg/actuation aerosol inhaler (Symbicort) ipratropium bromide 0.02 % 1 INHALATION QID 12/22/21 01/13/22 solution for inhalation prednisone 10 mg tablet mg PO 12/22/21 01/13/22 Previous Rx's Medication Instructions Recorded alcohol swabs (Alcohol Pads) 1 pad TOPICAL DIRECTED #200 ea 10/11/20 blood sugar diagnostic (Accu-Chek #100 ea 10/11/20 Guide test strips) blood-glucose meter (Accu-Chek #1 ea 10/11/20 Guide Glucose Meter) lancets (Accu-Chek Multiclix #100 ea 10/11/20 Lancet) ipratropium 0.5 mg-albuterol 3 mg 3 ml INHALATION Q4-6H PRN #180 ml 12/13/20 (2.5 mg base)/3 mL nebulization soln lisinopril 20 1 tab PO DAILY 30 Days #30 tab 04/08/21 mg-hydrochlorothiazide 12.5 mg tablet acetaminophen 650 mg 650 mg PO Q12H 30 Days #60 tab 08/18/21 tablet,extended release (Tylenol Arthritis Pain) pyridoxine (vitamin B6) 100 mg 100 mg PO BID 30 Days #60 tab 09/07/21 tablet prednisone 20 mg tablet 40 mg PO DAILY #10 tab 10/14/21 nystatin 100,000 unit/gram topical 1 appl TOPICAL BID 30 Days #60 g 11/08/21 powder prednisone 10 mg tablets in a dose 10 mg PO DAILY #48 ea 11/11/21 pack cimetidine 200 mg tablet 200 mg PO BEDTIME 20 Days #20 tab 11/17/21 disulfiram 250 mg tablet 250 mg PO DAILY 30 Days #30 tab 12/17/21 hydroxyzine HCl 10 mg tablet 10 mg PO BID 15 Days #30 tab 12/22/21 hydroxyzine pamoate 25 mg capsule 25 mg PO TID PRN 7 Days #21 cap 12/24/21 (Vistaril) naltrexone 50 mg tablet 50 mg PO DAILY 14 Days #14 tab 12/24/21 clonidine HCl 0.1 mg tablet 0.1 mg PO TID 7 Days #21 tab 01/05/22 baclofen 10 mg tablet 10 mg PO BID PRN 30 Days #60 tab 01/13/22 doxycycline monohydrate 100 mg 100 mg PO BID 7 Days #14 cap 01/13/22 capsule levalbuterol tartrate 45 1 - 2 puff INHALATION Q4H 30 Days 01/13/22 mcg/actuation aerosol inhaler #15 g (Xopenex HFA) meloxicam 15 mg tablet 15 mg PO DAILY #30 tab 01/13/22 guaifenesin 1,200 mg tablet, 1,200 mg PO Q12H #14 tab 01/15/22 extended release 12 hr (Mucinex) hydroxyzine HCl 50 mg tablet 50 mg PO TID PRN #14 tab 01/15/22 montelukast 10 mg tablet 10 mg PO BEDTIME #30 tab 01/15/22 (Singulair) prednisone 20 mg tablet 40 mg PO DAILY #10 tab 01/15/22 metformin 1,000 mg tablet 500 mg PO DAILY 30 Days #15 tab 01/21/22 disulfiram 250 mg tablet 250 mg PO DAILY 30 Days #30 tab 02/02/22 Allergies Allergy/AdvReac Type Severity Reaction Status Date / Time hydromorphone [From DILAUDID] Allergy Severe SEIZURES Verified 02/08/22 12:38 oxycodone [OXYCODONE] Allergy Severe SEIZURES Verified 02/08/22 12:38 vancomycin Allergy Severe Rash Verified 02/08/22 12:38 gabapentin [GABAPENTIN] Allergy Intermediate MUSCLE ACHE Verified 02/08/22 12:38 albuterol Allergy Mild Trouble Verified 02/08/22 12:38 breathing;MDI use only bupropion [From WELLBUTRIN] Allergy Unknown SEIZURES Verified 02/08/22 12:38 phenytoin [Dilantin] Allergy Unknown Unknown Verified 02/08/22 12:38 Review of Systems Review of Systems: Constitutional : No Weight loss, No Fever, No Chills, No Night Sweats, No Fatigue, No Malaise ENT/Mouth : No Hearing loss, No Ear Pain, No Nasal Congestion, No Sinus Pain, No Hoarseness, No sore throat, No Rhinorrhea, No Swallowing Difficulty Eyes: No Eye Pain, No Swelling, No Redness, No Foreign Body, No Discharge, No Vision Changes Cardiovascular : No Chest Pain, No SOB, No Dyspnea on Exertion, No Orthopnea, No Edema, No Palpitations Respiratory : No Cough, No Sputum, No Wheezing, No Smoke Exposure, No Dyspnea Gastrointestinal : No Nausea, No Vomiting, No Diarrhea, No Constipation, No abdominal Pain, No Hematochezia, No Melena Genitourinary : no irregular bleeding, No Dysuria, No Urinary Frequency, No Hematuria, No Urinary Incontinence, No Urgency, No Flank Pain, No Urinary Flow Changes, No Hesitancy Musculoskeletal : Complaining of right knee pain, chronic. No Myalgias, No Joint Swelling Skin : No Skin Lesions, No rash Neuro : No Weakness, No Numbness, No Paresthesias, No Loss of Consciousness, No Dizziness, No Headache Psych : No Anxiety/Panic, No Depression, No SI/HI/AH/VH, No Social Issues, Heme/Lymph: No Bruising, No Bleeding,No Lymphadenopathy Endocrine : No Polyuria, No Polydipsia, No Temperature Intolerance [facility] Past Medical History Medical History ADHD Alcohol abuse Anxiety Asthma Asthma-COPD overlap syndrome Cocaine abuse COPD (chronic obstructive pulmonary disease) DMII (diabetes mellitus, type 2) Epilepsy Fibromyalgia History of suicide attempt HTN (hypertension) Obese Sleep apnea Tracheomalacia Surgical History History of cholecystectomy Previous section Family History Family History Father No problems noted. Mother Cervical cancer Mental health disorder Social History Social History Household Members: Family Housing: House Do you presently have visiting nurse or other home services: No Alcohol intake: former Patient Tobacco Use Status: Former Tobacco user Cigarettes Per Day: 25 Years Smoked: 20 e-Cigarette/Vaping Use: Currently Using Second Hand Smoke Exposure: No Substance Use Type: Marijuana Advance Directives: Yes Advance Directives on File: Yes Advance Directives Date on File: 11/05/20 service: No Current occupational status: unemployed Cognitive needs: Yes (Pt would like a cane ) Hearing needs: Yes (?hearing loss mostly from right ear.) Vision needs: Yes (Pt was seen 6 months and exam was good just need readig glasses.) Physical Exam Vital Signs: Vital Signs: Last Vital Signs Temp 97.3 F 02/08/22 12:39 Pulse 76 02/08/22 13:38 Resp 16 02/08/22 13:38 BP 180/115 H 02/08/22 13:38 Pulse Ox 96 02/08/22 13:38 BMI result Body Mass Index 33.4 Const: Other: Appearance: Alert. Oriented X3. No acute distress. Eyes: Pupils equal, round and reactive to light. ENT: Pharynx normal. Neck: Normal inspection. Neck supple. No lymph nodes noted. No crepitus CVS: Normal heart rate and rhythm. Pulses normal. Normal S1 and S2 Respiratory: No respiratory distress. Breath sounds normal. No Wheezing. No rales Abdomen: Soft and nontender. No rigidity. No distention. Skin: Skin warm and dry. Normal skin color. Normal skin turgor. Extremities: No lower extremity edema. Patient is able to flex and extend the knee, no significant pain, only with weight-bearing. Mild joint effusion, no additional warmth to touch Neuro: Oriented X 3. No motor deficit. No sensory deficit. Moving all extremities. No slurred speech. CN 2 through 12 grossly intact Psych: calm, cooperative, normal affect Course Course Course Narrative: I discussed the x-ray and physical exam with the patient. Patient has significant arthritis, likely causing the joint effusion, there is not enough fluid for an arthrocentesis at this time. Septic joint is not suspected. Patient will follow up with Orthopedics, she has been told before that she needs joint replacement. Discussed with the patient not to take ibuprofen and naproxen, only 1, which she has been doing for the last few weeks. MDM - Extremity Injury (Lower) Imaging Data Knee x-ray: Radiologist's impression: FINDINGS: There is moderate lateral malleolar soft tissue swelling with a nondisplaced distal fibular fracture. The ankle mortise and subtalar joints are normal. There is a small calcaneal heel spur. XR/XR ankle LT 2V IMPRESSION: Nondisplaced distal fibular fracture with moderate lateral malleolar soft tissue swelling. Discharge Plan Discharge Clinical Impression: Arthritis of knee, Joint effusion of knee Patient Disposition: Home, Self-Care Instructions: Arthritis (ED), Swollen Knee Joint (ED) Additional Instructions: Please follow-up with your primary care physician and Orthopedics tomorrow. If you have any worsening or new symptoms, please return to the emergency room or call 911 Prescriptions: No Action ipratropium-albuterol 0.5 mg-3 mg(2.5 mg base)/3 mL solution for nebulization 3 ml inhalation Q4-6H PRN (Reason: shortness of breath or wheezing) Qty: 180 0RF acetaminophen [Tylenol Arthritis Pain] 650 mg tablet extended release 650 mg PO Q12H 30 Days Qty: 60 3RF nystatin 100,000 unit/gram powder 1 appl topical BID 30 Days Qty: 60 1RF metformin 1,000 mg tablet 500 mg PO DAILY 30 Days Qty: 15 3RF dextroamphetamine-amphetamine 20 mg tablet 20 mg PO BID@0700,1600 0RF (DME) blood-glucose meter [Accu-Chek Guide Glucose Meter] Misc See Rx Instructions .ROUTE .MEDSUPPLY Qty: 1 0RF Rx Instructions: As directed (DME) Accu-Chek Guide test strips Strip See Rx Instructions .ROUTE .MEDSUPPLY Qty: 100 0RF Rx Instructions: As directed (DME) lancets [Accu-Chek Multiclix Lancet] Misc See Rx Instructions .ROUTE .MEDSUPPLY Qty: 100 0RF Rx Instructions: As directed alcohol swabs [Alcohol Pads] Pads, Medicated 1 pad topical DIRECTED Qty: 200 0RF multivitamin Tablet 1 tab PO DAILY 0RF prednisone 20 mg tablet 40 mg PO DAILY Qty: 10 0RF prednisone 10 mg tablets,dose pack 10 mg PO DAILY Qty: 48 0RF Rx Instructions: take 5 tabs x3 days then 4 tabs x3 days, 3 tabs x3 days, 2 tabs x3 days & 1 tab for 3 days. discard remainder prednisone 20 mg tablet 40 mg PO DAILY Qty: 10 0RF hydroxyzine HCl 50 mg tablet 50 mg PO TID PRN (Reason: anxiety) Qty: 14 0RF Mucinex 1,200 mg tablet extended release 12hr 1,200 mg PO Q12H Qty: 14 0RF montelukast [Singulair] 10 mg tablet 10 mg PO BEDTIME Qty: 30 0RF lisinopril-hydrochlorothiazide 20-12.5 mg tablet 1 tab PO DAILY 30 Days Qty: 30 3RF tiotropium bromide 2.5 mcg/actuation mist 2 puff inhalation DAILY 0RF prednisone 5 mg tablet 5 mg PO DAILY 0RF nystatin 100,000 unit/mL suspension 5 ml PO QID 0RF pyridoxine (vitamin B6) 100 mg tablet 100 mg PO BID 30 Days Qty: 60 2RF doxycycline monohydrate 100 mg capsule 100 mg PO BID 7 Days Qty: 14 0RF levalbuterol tartrate [Xopenex HFA] 45 mcg/actuation HFA aerosol inhaler 1 - 2 puff inhalation Q4H 30 Days Qty: 15 3RF meloxicam 15 mg tablet 15 mg PO DAILY Qty: 30 2RF baclofen 10 mg tablet 10 mg PO BID PRN (Reason: muscle spasm) 30 Days Qty: 60 2RF cimetidine 200 mg tablet 200 mg PO BEDTIME 20 Days Qty: 20 0RF prednisone 10 mg tablet PO 0RF budesonide-formoterol [Symbicort] 160-4.5 mcg/actuation HFA aerosol inhaler 2 puff inhalation BID 0RF amlodipine 2.5 mg tablet 2.5 mg PO DAILY 0RF ipratropium bromide 0.02 % solution 1 inhalation QID 0RF hydroxyzine HCl 10 mg tablet 10 mg PO BID 15 Days Qty: 30 0RF hydroxyzine pamoate [Vistaril] 25 mg capsule 25 mg PO TID PRN (Reason: itching) 7 Days Qty: 21 0RF naltrexone 50 mg tablet 50 mg PO DAILY 14 Days Qty: 14 0RF disulfiram 250 mg tablet 250 mg PO DAILY 30 Days Qty: 30 0RF clonidine HCl 0.1 mg tablet 0.1 mg PO TID 7 Days Qty: 21 2RF disulfiram 250 mg tablet 250 mg PO DAILY 30 Days Qty: 30 2RF Referrals: Edith Broussard PA-C [[facility] [employer]] - 2 days (to discuss knee replacement)
== END 2022-02-08 14:55 | disposition home or self-care (01) ==
PROVIDERS: Emergency Provider Emergency Medicine; PCP Physician Assistant
DX: M17.11 Unilateral primary osteoarthritis, right knee (principal); M25.461 Effusion, right knee; M25.561 Pain in right knee; I10 Essential (primary) hypertension; E11.9 Type 2 diabetes mellitus without complications
CPT/HCPCS: 73560; 99283

== ENCOUNTER 2022-02-15 16:01 | Emergency (ER) | payer BC, MEDICARE, SELFPAY ==
--- NOTE | ~2022-02-15 | XR_ITS ---
EXAMINATION: XR CHEST CLINICAL INFORMATION: Asthma COMPARISON: Chest x-ray 01/15/2022 TECHNIQUE: Frontal view of the chest was obtained. 5:09 PM FINDINGS: No significant abnormality is noted involving the heart, lungs, mediastinum, bony thorax or soft tissues. XR/XR chest 1V IMPRESSION: Unremarkable examination.
[2022-02-15 16:49] VITALS: BP 138/105; PULSE 122; RESP 20; TEMP 36.8; O2SAT 98; BMI 33.0
[2022-02-15 17:21] LABS: COVID-19 Test Negative (Negative); IDNOW Serial# 16C4AD1C
[2022-02-15 17:22] LABS: Influenza A Negative (Negative); Influenza B2 Negative (Negative)
[2022-02-15 22:25] VITALS: BP 152/112; PULSE 108; RESP 22; O2SAT 96
[2022-02-16 01:47] VITALS: BP 149/113; PULSE 110; RESP 24; O2SAT 97
[2022-02-16 02:33] VITALS: PULSE 88; RESP 20; O2SAT 86
[2022-02-16] MEDS: Albuterol Sulfate (0.083%) 2.5 MG/3 ML VIAL.NEB 10 MG INHALE ×2 (02:33→05:18)
[2022-02-16] MEDS: methylPREDNISolone Sod Succ 125 MG/2 ML VIAL IVPUSH (02:56)
--- NOTE | 2022-02-16 02:56 | ED.ASTHMA ---
HPI - Asthma General Chief Complaint: Asthma Stated Complaint: Asthma Time Seen by Provider: 02/15/22 18:19 Source: patient Mode of arrival: ambulatory History of Present Illness HPI Narrative: 51-year-old female with history of asthma, alcohol abuse, cocaine abuse who presents with worsening shortness of breath with the past couple of days but denies any fever, chills, chest pain/palpitations, GI or symptoms. Related Data Home Medications Medication Instructions Recorded Confirmed dextroamphetamine-amphetamine 20 20 mg PO BID@0700,1600 07/26/20 01/13/22 mg tablet multivitamin 1 tab PO DAILY 11/05/20 01/13/22 tiotropium bromide 2.5 2 puff INHALATION DAILY 02/08/21 01/13/22 mcg/actuation mist for inhalation nystatin 100,000 unit/mL oral 5 ml PO QID 09/07/21 01/13/22 suspension prednisone 5 mg tablet 5 mg PO DAILY 09/07/21 01/13/22 amlodipine 2.5 mg tablet 2.5 mg PO DAILY 12/22/21 01/13/22 budesonide-formoterol HFA 160 2 puff INHALATION BID 12/22/21 01/13/22 mcg-4.5 mcg/actuation aerosol inhaler (Symbicort) ipratropium bromide 0.02 % 1 INHALATION QID 12/22/21 01/13/22 solution for inhalation prednisone 10 mg tablet mg PO 12/22/21 01/13/22 Previous Rx's Medication Instructions Recorded alcohol swabs (Alcohol Pads) 1 pad TOPICAL DIRECTED #200 ea 10/11/20 blood sugar diagnostic (Accu-Chek #100 ea 10/11/20 Guide test strips) blood-glucose meter (Accu-Chek #1 ea 10/11/20 Guide Glucose Meter) lancets (Accu-Chek Multiclix #100 ea 10/11/20 Lancet) ipratropium 0.5 mg-albuterol 3 mg 3 ml INHALATION Q4-6H PRN #180 ml 12/13/20 (2.5 mg base)/3 mL nebulization soln lisinopril 20 1 tab PO DAILY 30 Days #30 tab 04/08/21 mg-hydrochlorothiazide 12.5 mg tablet acetaminophen 650 mg 650 mg PO Q12H 30 Days #60 tab 08/18/21 tablet,extended release (Tylenol Arthritis Pain) pyridoxine (vitamin B6) 100 mg 100 mg PO BID 30 Days #60 tab 09/07/21 tablet prednisone 20 mg tablet 40 mg PO DAILY #10 tab 10/14/21 nystatin 100,000 unit/gram topical 1 appl TOPICAL BID 30 Days #60 g 11/08/21 powder prednisone 10 mg tablets in a dose 10 mg PO DAILY #48 ea 11/11/21 pack cimetidine 200 mg tablet 200 mg PO BEDTIME 20 Days #20 tab 11/17/21 disulfiram 250 mg tablet 250 mg PO DAILY 30 Days #30 tab 12/17/21 hydroxyzine HCl 10 mg tablet 10 mg PO BID 15 Days #30 tab 12/22/21 hydroxyzine pamoate 25 mg capsule 25 mg PO TID PRN 7 Days #21 cap 12/24/21 (Vistaril) naltrexone 50 mg tablet 50 mg PO DAILY 14 Days #14 tab 12/24/21 baclofen 10 mg tablet 10 mg PO BID PRN 30 Days #60 tab 01/13/22 doxycycline monohydrate 100 mg 100 mg PO BID 7 Days #14 cap 01/13/22 capsule levalbuterol tartrate 45 1 - 2 puff INHALATION Q4H 30 Days 01/13/22 mcg/actuation aerosol inhaler #15 g (Xopenex HFA) meloxicam 15 mg tablet 15 mg PO DAILY #30 tab 01/13/22 guaifenesin 1,200 mg tablet, 1,200 mg PO Q12H #14 tab 01/15/22 extended release 12 hr (Mucinex) hydroxyzine HCl 50 mg tablet 50 mg PO TID PRN #14 tab 01/15/22 montelukast 10 mg tablet 10 mg PO BEDTIME #30 tab 01/15/22 (Singulair) prednisone 20 mg tablet 40 mg PO DAILY #10 tab 01/15/22 metformin 1,000 mg tablet 500 mg PO DAILY 30 Days #15 tab 01/21/22 disulfiram 250 mg tablet 250 mg PO DAILY 30 Days #30 tab 02/02/22 clonidine HCl 0.1 mg tablet 0.1 mg PO TID 7 Days #21 tab 02/11/22 prednisone 50 mg tablet 50 mg PO DAILY 4 Days #4 tab 02/16/22 Allergies Allergy/AdvReac Type Severity Reaction Status Date / Time hydromorphone [From DILAUDID] Allergy Severe SEIZURES Verified 02/15/22 16:49 oxycodone [OXYCODONE] Allergy Severe SEIZURES Verified 02/15/22 16:49 vancomycin Allergy Severe Rash Verified 02/15/22 16:49 gabapentin [GABAPENTIN] Allergy Intermediate MUSCLE ACHE Verified 02/15/22 16:49 albuterol Allergy Mild Trouble Verified 02/15/22 16:49 breathing;MDI use only bupropion [From WELLBUTRIN] Allergy Unknown SEIZURES Verified 02/15/22 16:49 phenytoin [Dilantin] Allergy Unknown Unknown Verified 02/15/22 16:49 Review of Systems Review of Systems: Pertinent positives and negatives as stated HPI 10 point review of systems is otherwise negative. [facility] Past Medical History Source: nursing notes reviewed Medical History ADHD Alcohol abuse Anxiety Asthma Asthma-COPD overlap syndrome Cocaine abuse COPD (chronic obstructive pulmonary disease) DMII (diabetes mellitus, type 2) Epilepsy Fibromyalgia History of suicide attempt HTN (hypertension) Obese Sleep apnea Tracheomalacia Surgical History History of cholecystectomy Previous section Family History Family History Father No problems noted. Mother Cervical cancer Mental health disorder Social History Social History Household Members: Family Housing: House Do you presently have visiting nurse or other home services: No Alcohol intake: former Patient Tobacco Use Status: Former Tobacco user Cigarettes Per Day: 25 Years Smoked: 20 e-Cigarette/Vaping Use: Currently Using Second Hand Smoke Exposure: No Substance Use Type: Marijuana Advance Directives: Yes Advance Directives on File: Yes Advance Directives Date on File: 11/05/20 service: No Current occupational status: unemployed Cognitive needs: Yes (Pt would like a cane ) Hearing needs: Yes (?hearing loss mostly from right ear.) Vision needs: Yes (Pt was seen 6 months and exam was good just need readig glasses.) Physical Exam Vital Signs: Vital Signs: Last Vital Signs Temp 98 F 02/16/22 06:05 Pulse 108 H 02/16/22 06:05 Resp 24 H 02/16/22 06:05 BP 139/80 02/16/22 06:05 Pulse Ox 95 02/16/22 06:05 BMI result Body Mass Index 33.0 VITAL SIGNS: Reviewed. GENERAL: Well developed, well nourished, in no acute distress. HEAD: Normocephalic/atraumatic EYES: PERRLA, EOMI EARS: Ext canals without abnormality OROPHARYNX: no oral lesions noted, posterior pharynx clear LUNGS: Decreased breath sounds bilaterally with expiratory wheeze as well as coarse rhonchi, mild tachypnea SpO2<97> CARDIOVASCULAR: Regular rate and rhythm without noted murmurs ABDOMEN: Soft, non-tender, non-distended with bowel sounds. MUSCULOSKELETAL: No tenderness, deformities, or effusions noted on gross inspection. EXTREMITIES: No cyanosis, clubbing or edema. SKIN: Inspection of the skin reveals no rashes NEUROLOGIC: Alert and oriented x 4. Strength and sensation to light touch were grossly intact x 4. Course Course Course Narrative: 51-year-old female with history and clinical presentation consistent with asthma exacerbation. Patient received 2 hour long albuterol treatments, steroids, magnesium sulfate. Review of all investigations without acute findings and patient received 3 hour long albuterol treatments, steroids, Mag sulfate and is currently oxygenating at 93-94% without difficulty. Patient reports on re-evaluation that she is feeling much better and is ready go home. MDM - Asthma Lab Data Labs: Lab Results 02/15/22 02/15/22 Range/Units 16:53 16:53 COVID-19 ([facility]) Negative (Negative) COVID-19 Clin Com See Note Influenza Type A ([facility]) Negative (Negative) Influenza Type B ([facility]) Negative (Negative) Influenza A & B Note See Note Discharge Plan Discharge Clinical Impression: Asthma exacerbation Patient Disposition: Home, Self-Care Instructions: Asthma (ED) Additional Instructions: 1. Resume all home medications as prescribed. 2. You have been prescribed a short course of steroids. 3. Please follow-up with primary care provider in the next 1-2 days for re-evaluation. Return to the ER for worsening symptoms. Prescriptions: New prednisone 50 mg tablet 50 mg PO DAILY 4 Days Qty: 4 0RF No Action ipratropium-albuterol 0.5 mg-3 mg(2.5 mg base)/3 mL solution for nebulization 3 ml inhalation Q4-6H PRN (Reason: shortness of breath or wheezing) Qty: 180 0RF acetaminophen [Tylenol Arthritis Pain] 650 mg tablet extended release 650 mg PO Q12H 30 Days Qty: 60 3RF nystatin 100,000 unit/gram powder 1 appl topical BID 30 Days Qty: 60 1RF metformin 1,000 mg tablet 500 mg PO DAILY 30 Days Qty: 15 3RF clonidine HCl 0.1 mg tablet 0.1 mg PO TID 7 Days Qty: 21 0RF dextroamphetamine-amphetamine 20 mg tablet 20 mg PO BID@0700,1600 0RF (DME) blood-glucose meter [Accu-Chek Guide Glucose Meter] Misc See Rx Instructions .ROUTE .MEDSUPPLY Qty: 1 0RF Rx Instructions: As directed (DME) Accu-Chek Guide test strips Strip See Rx Instructions .ROUTE .MEDSUPPLY Qty: 100 0RF Rx Instructions: As directed (DME) lancets [Accu-Chek Multiclix Lancet] Misc See Rx Instructions .ROUTE .MEDSUPPLY Qty: 100 0RF Rx Instructions: As directed alcohol swabs [Alcohol Pads] Pads, Medicated 1 pad topical DIRECTED Qty: 200 0RF multivitamin Tablet 1 tab PO DAILY 0RF prednisone 20 mg tablet 40 mg PO DAILY Qty: 10 0RF prednisone 10 mg tablets,dose pack 10 mg PO DAILY Qty: 48 0RF Rx Instructions: take 5 tabs x3 days then 4 tabs x3 days, 3 tabs x3 days, 2 tabs x3 days & 1 tab for 3 days. discard remainder prednisone 20 mg tablet 40 mg PO DAILY Qty: 10 0RF hydroxyzine HCl 50 mg tablet 50 mg PO TID PRN (Reason: anxiety) Qty: 14 0RF Mucinex 1,200 mg tablet extended release 12hr 1,200 mg PO Q12H Qty: 14 0RF montelukast [Singulair] 10 mg tablet 10 mg PO BEDTIME Qty: 30 0RF lisinopril-hydrochlorothiazide 20-12.5 mg tablet 1 tab PO DAILY 30 Days Qty: 30 3RF tiotropium bromide 2.5 mcg/actuation mist 2 puff inhalation DAILY 0RF prednisone 5 mg tablet 5 mg PO DAILY 0RF nystatin 100,000 unit/mL suspension 5 ml PO QID 0RF pyridoxine (vitamin B6) 100 mg tablet 100 mg PO BID 30 Days Qty: 60 2RF doxycycline monohydrate 100 mg capsule 100 mg PO BID 7 Days Qty: 14 0RF levalbuterol tartrate [Xopenex HFA] 45 mcg/actuation HFA aerosol inhaler 1 - 2 puff inhalation Q4H 30 Days Qty: 15 3RF meloxicam 15 mg tablet 15 mg PO DAILY Qty: 30 2RF baclofen 10 mg tablet 10 mg PO BID PRN (Reason: muscle spasm) 30 Days Qty: 60 2RF cimetidine 200 mg tablet 200 mg PO BEDTIME 20 Days Qty: 20 0RF prednisone 10 mg tablet PO 0RF budesonide-formoterol [Symbicort] 160-4.5 mcg/actuation HFA aerosol inhaler 2 puff inhalation BID 0RF amlodipine 2.5 mg tablet 2.5 mg PO DAILY 0RF ipratropium bromide 0.02 % solution 1 inhalation QID 0RF hydroxyzine HCl 10 mg tablet 10 mg PO BID 15 Days Qty: 30 0RF hydroxyzine pamoate [Vistaril] 25 mg capsule 25 mg PO TID PRN (Reason: itching) 7 Days Qty: 21 0RF naltrexone 50 mg tablet 50 mg PO DAILY 14 Days Qty: 14 0RF disulfiram 250 mg tablet 250 mg PO DAILY 30 Days Qty: 30 0RF disulfiram 250 mg tablet 250 mg PO DAILY 30 Days Qty: 30 2RF Referrals: Jaison Navarrete PA-C [Primary Care Provider] -
[2022-02-16] MEDS: Magnesium Sulfate/H2O 2 GM/50 ML PIGGYBACK IV (02:58)
--- NOTE | 2022-02-16 03:01 | PC.NURSE ---
20G IV placed right AC, medicated per provider order. magnesium sulfate running @ 100mL/hr over 30 min per respiratory protocol.
[2022-02-16 04:13] VITALS: BP 147/92; PULSE 114; RESP 27; TEMP 36.6; O2SAT 96
[2022-02-16 05:18] VITALS: PULSE 114; RESP 27; O2SAT 96
[2022-02-16 06:05] VITALS: BP 139/80; PULSE 108; RESP 24; TEMP 36.6; O2SAT 95
[2022-02-16] MEDS: Albuterol Sulfate 90 MCG 8 GM INHALER 2 PUFF INHALE (06:46)
== END 2022-02-16 07:05 | disposition home or self-care (01) ==
PROVIDERS: Emergency Provider Student in an Organized Health Care Education/Training Program; PCP Physician Assistant
DX: J45.901 Unspecified asthma with (acute) exacerbation (principal); E11.9 Type 2 diabetes mellitus without complications; I10 Essential (primary) hypertension; G40.909 Epilepsy, unspecified, not intractable, without status epilepticus; Z20.822 Contact with and (suspected) exposure to COVID-19
CPT/HCPCS: 71045; 87502; 87635; 94640; 94644; 96365; 96366; 96375; 99283; 99285; J2930; J3475

== ENCOUNTER 2022-02-21 11:53 | Outpatient (REF) | payer BC, MEDICARE, SELFPAY ==
--- NOTE | ~2022-02-21 | XR_ITS ---
EXAMINATION: XR KNEE AP STANDING XR KNEE, RIGHT CLINICAL INFORMATION: Right knee pain COMPARISON: None TECHNIQUE: AP bilateral standing view of the knees was obtained. Lateral and sunrise previous of the right knee. FINDINGS: No acute fractures. Joint space narrowing and osteophyte formation is seen within the lateral compartment of the right femoral tibial joint space consistent with moderate osteoarthritis. There is a trace knee joint effusion. Left knee joint is well-maintained XR/XR knee standing BI IMPRESSION: Moderate osteoarthritis within the lateral compartment of the right femoral-tibial joint
--- NOTE | ~2022-02-21 | XR_ITS ---
EXAMINATION: XR KNEE AP STANDING XR KNEE, RIGHT CLINICAL INFORMATION: Right knee pain COMPARISON: None TECHNIQUE: AP bilateral standing view of the knees was obtained. Lateral and sunrise previous of the right knee. FINDINGS: No acute fractures. Joint space narrowing and osteophyte formation is seen within the lateral compartment of the right femoral tibial joint space consistent with moderate osteoarthritis. There is a trace knee joint effusion. Left knee joint is well-maintained XR/XR knee RT 2V IMPRESSION: Moderate osteoarthritis within the lateral compartment of the right femoral-tibial joint
== END 2022-02-21 11:54 | disposition home or self-care (01) ==
LOC: HO.HOSX 11:53
PROVIDERS: Visit Provider Orthopaedic Surgery
DX: M17.11 Unilateral primary osteoarthritis, right knee (principal); E11.65 Type 2 diabetes mellitus with hyperglycemia; F10.20 Alcohol dependence, uncomplicated
CPT/HCPCS: 73560; 73565; 99202

== ENCOUNTER 2022-04-11 11:33 | Emergency (ER) | payer BC, MEDICARE, SELFPAY | END 2022-04-11 11:52 | disposition left against medical advice (07) | PROVIDERS: Emergency Provider Emergency Medicine; PCP Physician Assistant | DX: J45.909 Unspecified asthma, uncomplicated (principal) ==

== ENCOUNTER 2022-04-16 14:15 | Emergency (ER) | payer BC, MEDICARE, SELFPAY ==
--- NOTE | ~2022-04-16 | XR_ITS ---
EXAMINATION: XR CHEST CLINICAL INFORMATION: Chest pain. COMPARISON: Chest done on 02/15/2022. TECHNIQUE: Frontal view of the chest was obtained. FINDINGS: No significant abnormality is noted involving the heart, lungs, mediastinum, bony thorax or soft tissues. Previously documented linear airspace opacity at left lung base shows interval resolution. XR/XR chest 1V IMPRESSION: Unremarkable examination.
--- NOTE | 2022-04-16 14:20 | ECG_ITS ---
Test Reason : CP Blood Pressure : / mmHG Vent. Rate : 122 BPM Atrial Rate : 122 BPM P-R Int : 144 ms QRS Dur : 100 ms QT Int : 334 ms P-R-T Axes : 039 040 061 degrees QTc Int : 475 ms Sinus tachycardia Otherwise norml EKG When compared with ECG of 14-OCT-2021 12:29, Increase in ventricular rate Referred By: Generic ED Physician Electronically Signed By:ELVIS PEGUERO
[2022-04-16 14:28] VITALS: BP 148/91; PULSE 123; RESP 20; TEMP 36.8; O2SAT 96; BMI 32.8
[2022-04-16 14:36] LABS: Basophils Absolute Auto 0.1 X10*3/uL (0.0-0.2); Basophils Percent Auto 0.5 % (0-2); Eosinophils Absolute Auto 0.1 X10*3/uL (0.0-0.4); Eosinophils Percent Auto 0.9 % (0-4); Hematocrit 40.8 % (37.0-47.0); Imm Gran Abs Auto 0.07 X10*3/uL (0.00-0.03); Imm Gran Pct Auto 0.5 % (0.0-0.4); Lymphocytes Absolute Auto 3.6 X10*3/uL (1.2-4.9); MANUAL DIFF FLAG NO; Mean Corpuscular HGB Conc 34.3 g/dl (31.0-35.0); Mean Corpuscular Volume 87.4 fL (80.0-98.0); Mean Platelet Volume 9.5 fL (9.4-12.3); Monocytes Absolute Auto 0.8 X10*3/uL (0.1-1.2); Monocytes Percent Auto 6.1 % (2-11); Neutrophils Absolute Auto 8.6 x10*3/uL (2.0-8.3); Platelet Count 452 X10*3/uL (160-400); Red Blood Count 4.67 X10*6/uL (4.20-5.50); Red Cell Distribution Width 13.6 % (11.0-16.0); White Blood Count 13.2 X10*3/uL (4.8-10.8)
[2022-04-16 14:51] LABS: Anion Gap 18 (12-20); Blood Urea Nitrogen 14 mg/dL (9-16); COVID-19 Test Negative (Negative); Calcium 9.2 mg/dL (8.4-10.2); Carbon Dioxide 18 mmol/L (22-29); Chloride 109 mmol/L (96-108); Creatinine Clr Calc Pharmacy 89.1; Estimated Glomerular Filt Rate > 60; Glucose Random 247 mg/dL (60-115); Potassium 3.4 mmol/L (3.3-5.1); Sodium 142 mmol/L (135-145)
== END 2022-04-16 18:52 | disposition left against medical advice (07) ==
LOC: HO.ED 18:50
PROVIDERS: Emergency Provider Emergency Medicine; PCP Physician Assistant
DX: R00.2 Palpitations (principal); I10 Essential (primary) hypertension; J45.909 Unspecified asthma, uncomplicated; Z20.822 Contact with and (suspected) exposure to COVID-19; Z76.0 Encounter for issue of repeat prescription; E11.9 Type 2 diabetes mellitus without complications; E66.9 Obesity, unspecified; Z68.32 Body mass index [BMI] 32.0-32.9, adult
CPT/HCPCS: 36415; 71045; 80048; 84484; 85025; 87635; 93005; 99283; 99284

== ENCOUNTER 2022-04-20 17:02 | Inpatient (IN) | payer BC, MEDICARE, SELFPAY ==
--- NOTE | ~2022-04-20 | XR_ITS ---
EXAMINATION: XR CHEST CLINICAL INFORMATION: Shortness of breath COMPARISON: 04/16/2022 and 02/15/2022 TECHNIQUE: Frontal view of the chest was obtained. FINDINGS: No significant abnormality is noted involving the heart, lungs, mediastinum, bony thorax or soft tissues. There is been recurrence of a small area of atelectasis at the left lung base that was present on the January study and not seen on the March study. XR/XR chest 1V IMPRESSION: No acute intrathoracic disease. Left basilar atelectasis
[2022-04-20 17:41] VITALS: BP 124/80; PULSE 130; RESP 28; TEMP 36.7; O2SAT 94; BMI 32.6
--- NOTE | 2022-04-20 17:47 | ED.SOB ---
HPI - SOB/Dyspnea General Chief Complaint: Dyspnea Stated Complaint: asthma, wheezing Source: patient Mode of arrival: ambulatory Limitations: no limitations History of Present Illness HPI Narrative: 51-year-old female presents with shortness of breath, shortness breath on exertion, wheezing, has been using her inhalers with poor effect. Patient has a history of severe persistent asthma, tracheomalacia, obstructive sleep apnea, diabetes, and history of MRSA pneumonia in October with admission to [facility]. Patient stated that she Was on a prednisone taper which she finished 2 days ago. Patient states that she has not gotten better and is having a hard time ambulating because of exhaustion and shortness of breath. MD elicited complaint: shortness of breath, asthma attack and anxiety Pertinent past history: COPD and asthma Onset (ago): day(s) Context: recent illness Timing: constant Severity: moderate Exacerbating factors: exertion, movement, coughing, inspiration, talking and strong odors Relieving factors: nothing Known history of: COPD, asthma and recurrent pneumonia Associated symptoms: cough, wheezing and orthopnea Treatment prior to arrival: bronchodilator Related Data Home oxygen amount: none Home Medications Medication Instructions Recorded Confirmed dextroamphetamine-amphetamine 20 20 mg PO BID@0700,1600 07/26/20 04/20/22 mg tablet multivitamin 1 tab PO DAILY 11/05/20 04/20/22 budesonide-formoterol HFA 160 2 puff inhalation BID 12/22/21 04/20/22 mcg-4.5 mcg/actuation aerosol inhaler (Symbicort) acetaminophen 650 mg 650 mg PO Q12H PRN Pain 04/20/22 04/20/22 tablet,extended release (Tylenol Arthritis Pain) levalbuterol tartrate 45 1 - 2 puff inhalation Q4H PRN 04/20/22 04/20/22 mcg/actuation aerosol inhaler Wheezing (Xopenex HFA) lisinopril 20 mg tablet 1 tab PO DAILY 04/20/22 04/20/22 Previous Rx's Medication Instructions Recorded blood sugar diagnostic (Accu-Chek #100 ea 10/11/20 Guide test strips) blood-glucose meter (Accu-Chek #1 ea 10/11/20 Guide Glucose Meter) lancets (Accu-Chek Multiclix #100 ea 10/11/20 Lancet) ipratropium 0.5 mg-albuterol 3 mg 3 ml inhalation Q4-6H PRN 12/13/20 (2.5 mg base)/3 mL nebulization shortness of breath or wheezing soln #180 mL baclofen 10 mg tablet 10 mg PO BID PRN muscle spasm 30 01/13/22 days #60 tabs disulfiram 250 mg tablet 250 mg PO DAILY 30 days #30 tabs 02/02/22 metformin 1,000 mg tablet 1,000 mg PO BIDWMEAL 30 days #60 03/02/22 tabs Allergies Allergy/AdvReac Type Severity Reaction Status Date / Time hydromorphone [From DILAUDID] Allergy Severe SEIZURES Verified 04/20/22 17:41 oxycodone [OXYCODONE] Allergy Severe SEIZURES Verified 04/16/22 14:28 vancomycin Allergy Severe Rash Verified 04/16/22 14:28 gabapentin [GABAPENTIN] Allergy Intermediate MUSCLE ACHE Verified 04/16/22 14:28 albuterol Allergy Mild Trouble Verified 04/16/22 14:28 breathing;MDI use only bupropion [From WELLBUTRIN] Allergy Unknown SEIZURES Verified 04/16/22 14:28 phenytoin [Dilantin] Allergy Unknown Unknown Verified 04/16/22 14:28 Review of Systems Review of Systems: Constitutional: No Fever, No Chills ENT/Mouth: No Hoarseness, No sore throat, No Rhinorrhea Eyes: No Redness, No Discharge, No Vision Changes Cardiovascular: No Chest Pain, positive SOB, positive Dyspnea on Exertion, No Edema Respiratory: positive Cough, No Sputum, positive Wheezing, Gastrointestinal: No Nausea, No Vomiting, No Diarrhea, No abdominal Pain Genitourinary: No Dysuria, No Hematuria Musculoskeletal: No joint pain, No Myalgias Skin: No rash Neuro: No Weakness, No Numbness, No Headache Psych: No anxiety, depression Heme/Lymph: No Bruising, No Bleeding Endocrine: No Polyuria, No Polydipsia Yes all other systems are reviewed and are negative [facility] Past Medical History Attestation statement: The following information was validated with the patient. Source: old records reviewed Medical History ADHD Alcohol abuse Anxiety Asthma Asthma-COPD overlap syndrome Cocaine abuse COPD (chronic obstructive pulmonary disease) DMII (diabetes mellitus, type 2) Epilepsy Fibromyalgia History of suicide attempt HTN (hypertension) Obese Sleep apnea Tracheomalacia Surgical History History of cholecystectomy Previous section Family History Family History Father No problems noted. Mother Cervical cancer Mental health disorder Social History Social History Household Members: Family Housing: House Do you presently have visiting nurse or other home services: No Alcohol intake: former Patient Tobacco Use Status: Former Tobacco user Cigarettes Per Day: 25 Years Smoked: 20 e-Cigarette/Vaping Use: Currently Using Second Hand Smoke Exposure: No Substance Use Type: Marijuana Advance Directives: Yes Advance Directives on File: Yes Advance Directives Date on File: 11/05/20 service: No Current occupational status: unemployed Cognitive needs: Yes (Pt would like a cane ) Hearing needs: Yes (?hearing loss mostly from right ear.) Vision needs: Yes (Pt was seen 6 months and exam was good just need readig glasses.) Physical Exam Vital Signs: Vital Signs: Last Vital Signs Temp 98.1 F 04/20/22 21:50 Pulse 107 H 04/20/22 21:50 Resp 16 04/20/22 21:50 BP 130/78 04/20/22 21:50 Pulse Ox 94 04/20/22 21:50 O2 Del Method 04/20/22 21:50 BMI result Body Mass Index 32.6 Appearance: Alert. Oriented X3. Moderate respiratory distress. Eyes: Pupils equal, round and reactive to light. ENT: Pharynx normal. Neck: Normal inspection. Neck supple. CVS: Tachycardic heart rate and rhythm. Pulses normal. Respiratory: Tachypneic, moderate distress. Poor air flow, diffuse wheezing throughout Abdomen: Soft and nontender. Skin: Skin warm and dry. Normal skin color. Normal skin turgor. Extremities: No lower extremity edema. Gait well-balanced well coordinated. Neuro: No motor deficit. No sensory deficit. Cranial nerves 2-12 intact. Course Course Course Narrative: 51-year-old female presents for asthma exacerbation. An orthoptic position, tachypneic at 28-32 breaths per minute, speaking in short phrases. Will complete H&P once patient is able to speak in complete sentences. 18:57 lung sounds continue to be coarse and wheezing. We will order 2nd hour long neb. 19:50 patient able to speak in complete sentences. States that she was on a prednisone taper and just stopped 2 days ago. Once the prednisone. She felt exacerbation and became short of breath. 21:04 anxious, order for Ativan 1 mg p.o. 22:12 discussion with hospitalist, plan of care is to admit for asthma exacerbation. Would like a D-dimer and 2nd troponins pending. Consultations Consultation #1: Eliceo Time: 22:12 MDM - SOB/Dyspnea Differential Diagnosis Differential diagnosis: Likely acute exacerbation of chronic obstructive airways disease, pneumonia and asthma with exacerbation Medical Records Attestation: I reviewed the patient's medical records. Lab Data Attestation: I reviewed the patient's lab results. Result diagrams: 04/20/22 19:44 04/20/22 19:44 Labs: Lab Results 04/20/22 04/20/22 04/20/22 Range/Units 19:44 19:44 19:44 WBC 10.9 H (4.8-10.8) X10*3/uL RBC 4.67 (4.20-5.50) X10*6/uL Hgb 13.9 (12.0-16.0) g/dl Hct 40.9 (37.0-47.0) % MCV 87.6 (80.0-98.0) fL MCH 29.8 (27.0-33.0) pg MCHC 34.0 (31.0-35.0) g/dl RDW 13.7 (11.0-16.0) % Plt Count 404 H (160-400) X10*3/uL MPV 9.6 (9.4-12.3) fL Immature Gran % (Auto) 0.6 H (0.0-0.4) % Neut % (Auto) 72.2 (45-73) % Lymph % (Auto) 20.9 (20-40) % [place] % (Auto) 5.1 (2-11) % Eos % (Auto) 0.6 (0-4) % Baso % (Auto) 0.6 (0-2) % Lymph # (Auto) 2.3 (1.2-4.9) X10*3/uL [place] # (Auto) 0.6 (0.1-1.2) X10*3/uL Eos # (Auto) 0.1 (0.0-0.4) X10*3/uL Baso # (Auto) 0.1 (0.0-0.2) X10*3/uL Abs Immat Gran (auto) 0.07 H (0.00-0.03) X10*3/uL Absolute Neuts (auto) 7.9 (2.0-8.3) x10*3/uL Absolute Nucleated RBC 0.000 (0.0-0.012) X10*3/uL Nucleated RBC % (auto) 0.0 (0.0-0.2) /100WBC Sodium 144 (135-145) mmol/L Potassium 4.2 D (3.3-5.1) mmol/L Chloride 107 (96-108) mmol/L Carbon Dioxide 22 (22-29) mmol/L Anion Gap 19 (12-20) BUN 9 (9-16) mg/dL Creatinine 0.77 (0.5-1.4) mg/dL Estim Creat Clear Calc 81.9 Estimated GFR > 60 Random Glucose 328 H (60-115) mg/dL Calcium 8.9 (8.4-10.2) mg/dL Troponin I High Sens 10.5 D (<3.5-17.0) ng/L B-Natriuretic Peptide 23 (<100) pg/mL Urine Color Urine Appearance Urine pH (5.0-8.0) Ur Specific [place] (1.005-1.025) Urine Protein (NEG-TRACE) MG/DL Urine Glucose (UA) (NEG) MG/DL Urine Ketones (NEG) MG/DL Urine Blood (NEG) Urine Nitrite (NEG) Ur Leukocyte Esterase (NEG) Urine RBC (0) /HPF Urine WBC (0-4) /HPF Ur Squamous Epith Cells /LPF Urine Bacteria /LPF 04/20/22 Range/Units 19:52 WBC (4.8-10.8) X10*3/uL RBC (4.20-5.50) X10*6/uL Hgb (12.0-16.0) g/dl Hct (37.0-47.0) % MCV (80.0-98.0) fL MCH (27.0-33.0) pg MCHC (31.0-35.0) g/dl RDW (11.0-16.0) % Plt Count (160-400) X10*3/uL MPV (9.4-12.3) fL Immature Gran % (Auto) (0.0-0.4) % Neut % (Auto) (45-73) % Lymph % (Auto) (20-40) % [place] % (Auto) (2-11) % Eos % (Auto) (0-4) % Baso % (Auto) (0-2) % Lymph # (Auto) (1.2-4.9) X10*3/uL [place] # (Auto) (0.1-1.2) X10*3/uL Eos # (Auto) (0.0-0.4) X10*3/uL Baso # (Auto) (0.0-0.2) X10*3/uL Abs Immat Gran (auto) (0.00-0.03) X10*3/uL Absolute Neuts (auto) (2.0-8.3) x10*3/uL Absolute Nucleated RBC (0.0-0.012) X10*3/uL Nucleated RBC % (auto) (0.0-0.2) /100WBC Sodium (135-145) mmol/L Potassium (3.3-5.1) mmol/L Chloride (96-108) mmol/L Carbon Dioxide (22-29) mmol/L Anion Gap (12-20) BUN (9-16) mg/dL Creatinine (0.5-1.4) mg/dL Estim Creat Clear Calc Estimated GFR Random Glucose (60-115) mg/dL Calcium (8.4-10.2) mg/dL Troponin I High Sens (<3.5-17.0) ng/L B-Natriuretic Peptide (<100) pg/mL Urine Color YELLOW Urine Appearance CLEAR Urine pH 6.5 (5.0-8.0) Ur Specific [place] <= 1.005 (1.005-1.025) Urine Protein NEG (NEG-TRACE) MG/DL Urine Glucose (UA) >=1000 H (NEG) MG/DL Urine Ketones NEG (NEG) MG/DL Urine Blood NEG (NEG) Urine Nitrite NEG (NEG) Ur Leukocyte Esterase NEG (NEG) Urine RBC 0-2 (0) /HPF Urine WBC 0-2 (0-4) /HPF Ur Squamous Epith Cells TRACE /LPF Urine Bacteria TRACE /LPF Imaging Data Chest x-ray: Attestation: I personally reviewed and interpreted this imaging study as follows: Radiologist's impression: EXAMINATION: XR CHEST CLINICAL INFORMATION: Shortness of breath COMPARISON: 04/16/2022 and 02/15/2022 TECHNIQUE: Frontal view of the chest was obtained. FINDINGS: No significant abnormality is noted involving the heart, lungs, mediastinum, bony thorax or soft tissues. There is been recurrence of a small area of atelectasis at the left lung base that was present on the January study and not seen on the March study. XR/XR chest 1V IMPRESSION: No acute intrathoracic disease. Left basilar atelectasis ECG Data Attestation: I personally reviewed and interpreted this ECG as follows: ECG interpretation date: 04/20/22 ECG interpretation time: 19:07 Prior ECG tracings: available for review Interpretation: Vent. rate 105 BPM SC interval 154 ms QRS duration 94 ms QT/QTc 364/481 ms P-R-T axes 35 35 44 Sinus tachycardia Otherwise normal ECG When compared with ECG of 16-APR-2022 14:21, No significant change was found Discharge Plan Discharge Clinical Impression: Asthma with exacerbation, Acute exacerbation of chronic obstructive airways disease Patient Disposition: Admitted As Inpatient
--- NOTE | 2022-04-20 17:48 | ECG_ITS ---
Test Reason : DYSPNEA Blood Pressure : / mmHG Vent. Rate : 105 BPM Atrial Rate : 105 BPM P-R Int : 154 ms QRS Dur : 094 ms QT Int : 364 ms P-R-T Axes : 035 035 044 degrees QTc Int : 481 ms Sinus tachycardia Otherwise normal ECG When compared with ECG of 16-APR-2022 14:21, No significant change was found Referred By: Sweetie Peck Electronically Signed By:JOLIE OVERTON MD
[2022-04-20 17:59] VITALS: PULSE 120; RESP 18
[2022-04-20] MEDS: Albuterol Sulfate (0.083%) 2.5 MG/3 ML VIAL.NEB 10 MG INHALE ×2 (17:59→19:34)
[2022-04-20] MEDS: methylPREDNISolone Sod Succ 125 MG/2 ML VIAL IVPUSH (18:18)
[2022-04-20] MEDS: Magnesium Sulfate/H2O 2 GM/50 ML PIGGYBACK IV (18:18)
[2022-04-20 19:34] VITALS: PULSE 106; RESP 16; O2SAT 99
[2022-04-20 19:50] LABS: MANUAL DIFF FLAG NO
[2022-04-20 19:51] LABS: Basophils Absolute Auto 0.1 X10*3/uL (0.0-0.2); Basophils Percent Auto 0.6 % (0-2); Eosinophils Absolute Auto 0.1 X10*3/uL (0.0-0.4); Eosinophils Percent Auto 0.6 % (0-4); Hematocrit 40.9 % (37.0-47.0); Hemoglobin 13.9 g/dl (12.0-16.0); Imm Gran Abs Auto 0.07 X10*3/uL (0.00-0.03); Imm Gran Pct Auto 0.6 % (0.0-0.4); Lymphocytes Absolute Auto 2.3 X10*3/uL (1.2-4.9); Lymphocytes Percent Auto 20.9 % (20-40); Mean Corpuscular Hemoglobin 29.8 pg (27.0-33.0); Mean Corpuscular Volume 87.6 fL (80.0-98.0); Mean Platelet Volume 9.6 fL (9.4-12.3); Monocytes Absolute Auto 0.6 X10*3/uL (0.1-1.2); Monocytes Percent Auto 5.1 % (2-11); Neutrophils Absolute Auto 7.9 x10*3/uL (2.0-8.3); Neutrophils Percent Auto 72.2 % (45-73); Platelet Count 404 X10*3/uL (160-400); Red Blood Count 4.67 X10*6/uL (4.20-5.50); Red Cell Distribution Width 13.7 % (11.0-16.0); White Blood Count 10.9 X10*3/uL (4.8-10.8)
[2022-04-20 20:02] LABS: Appearance Urine CLEAR; Color Urine YELLOW; Glucose Urine UA >=1000 MG/DL (NEG); Leukocyte Esterase Urine NEG (NEG); Nitrite Urine NEG (NEG); PH 6.5 (5.0-8.0); Specific Gravity - Urine <= 1.005 (1.005-1.025); Urine Blood NEG (NEG); Urine Ketones NEG (NEG); Urine Protein NEG (NEG-TRACE)
[2022-04-20 20:15] LABS: Bacteria Urine TRACE /LPF; RBC Urine 0-2 /HPF (0); Squamous Epithelial Cell Urine TRACE /LPF; WBC Urine 0-2 /HPF (0-4)
[2022-04-20 20:16] LABS: B Type Natriuretic Peptide 23 pg/mL (<100); Troponin-I High Sensitivity 10.5 ng/L (<3.5-17.0)
[2022-04-20 20:21] LABS: Anion Gap 19 (12-20); Blood Urea Nitrogen 9 mg/dL (9-16); Calcium 8.9 mg/dL (8.4-10.2); Carbon Dioxide 22 mmol/L (22-29); Chloride 107 mmol/L (96-108); Creatinine Clr Calc Pharmacy 81.9; Estimated Glomerular Filt Rate > 60; Glucose Random 328 mg/dL (60-115); Potassium 4.2 mmol/L (3.3-5.1); Sodium 144 mmol/L (135-145)
--- NOTE | 2022-04-20 20:24 | PC.NURSE ---
PATIENT WENT FOR A WALK AROUND THE THE HALLS WHILE CHECKING 02 SAT ,02 SAT REMAIN 96 %,PROVIDER MATI IS AWARE .
[2022-04-20 20:28] VITALS: BP 116/70; PULSE 114; RESP 16; TEMP 36.8; O2SAT 96
[2022-04-20] MEDS: LORazepam 1 MG TABLET PO (21:08)
[2022-04-20] MEDS: Albuterol/Iprat 2.5/0.5MG 3 ML AMPUL.NEB INHALE (21:27)
[2022-04-20 21:50] VITALS: BP 130/78; PULSE 107; RESP 16; TEMP 36.7; O2SAT 94
--- NOTE | 2022-04-20 22:12 | PC.NURSE ---
patient given fresh water and a diet jennifer eboni .
--- NOTE | 2022-04-20 22:22 | PM.IMHP ---
History of Present Illness Date of Service: 04/20/22 Chief Complaint: SOB 52-year-old female with a past medical history of hypertension, hyperlipidemia, diabetes, COPD-not on home oxygen, history of MRSA infection, fibromyalgia, arthritis, anxiety, depression, sleep apnea, polysubstance abuse; presented to the hospital today with a chief complaint of shortness of breath. Patient reports that for the past few days he has been having shortness of breath associated with the cough. Patient mentioned that she recently finished a course of prednisone about 2 days ago. But she started all of shortness of breath again, worsens on exertion. Mentions no significant improvement with her home Inhalers Denies any fevers and chills. Denies any cough. Denies any chest pain or palpitations. denies any recent travel or sick contacts. Review of all other systems is negative except mentioned above ER course: Per ER team patient on presentation noted to be in mild respiratory distress, tight on examination; patient was given 2 hour long nebulizations and steroids. Also received magnesium. Admitted to the hospital for further management. [facility] Medical History ADHD Alcohol abuse Anxiety Asthma Asthma-COPD overlap syndrome Cocaine abuse COPD (chronic obstructive pulmonary disease) DMII (diabetes mellitus, type 2) Epilepsy Fibromyalgia History of suicide attempt HTN (hypertension) Obese Sleep apnea Tracheomalacia Family History Father No problems noted. Mother Cervical cancer Mental health disorder Surgical History History of cholecystectomy Previous section Social History Household Members: Family Housing: House Do you presently have visiting nurse or other home services: No Alcohol intake: former Patient Tobacco Use Status: Former Tobacco user Cigarettes Per Day: 25 Years Smoked: 20 e-Cigarette/Vaping Use: Currently Using Second Hand Smoke Exposure: No Substance Use Type: Marijuana Advance Directives: Yes Advance Directives on File: Yes Advance Directives Date on File: 11/05/20 service: No Current occupational status: unemployed Cognitive needs: Yes (Pt would like a cane ) Hearing needs: Yes (?hearing loss mostly from right ear.) Vision needs: Yes (Pt was seen 6 months and exam was good just need readig glasses.) Meds Allergies Allergy/AdvReac Type Severity Reaction Status Date / Time hydromorphone [From DILAUDID] Allergy Severe SEIZURES Verified 04/20/22 17:41 oxycodone [OXYCODONE] Allergy Severe SEIZURES Verified 04/16/22 14:28 vancomycin Allergy Severe Rash Verified 04/16/22 14:28 gabapentin [GABAPENTIN] Allergy Intermediate MUSCLE ACHE Verified 04/16/22 14:28 albuterol Allergy Mild Trouble Verified 04/16/22 14:28 breathing;MDI use only bupropion [From WELLBUTRIN] Allergy Unknown SEIZURES Verified 04/16/22 14:28 phenytoin [Dilantin] Allergy Unknown Unknown Verified 04/16/22 14:28 Active Medications: Current Medications Acetaminophen (Acetaminophen 325 Mg Tablet) 650 mg PO Q6H PRN PRN Reason: Pain, Mild (Pain Scale 1-3) Albuterol/Ipratropium (Albuterol/Iprat 2.5/0.5mg 3 Ml Ampul.Neb) 3 ml INHALE RQ4H WHILE AWAKE [facility] Azithromycin (Azithromycin 500 Mg Tablet) 500 mg PO Q24H [facility] Enoxaparin Sodium (Enoxaparin Sodium 40 Mg/0.4 Ml Syringe) 40 mg SUBCUT Q24H [facility] Melatonin (Melatonin 3 Mg Tablet) 6 mg PO BEDTIME PRN PRN Reason: Insomnia Methylprednisolone Sodium Succinate (Methylprednisolone Sod Succ 40 Mg/Ml Vial) 40 mg IVPUSH Q6H [facility] Pharmacy Consult (Consult Rx Perform Med Rec) 1 each MISCELLANE ONCE STA Stop: 04/20/22 21:50 Senna (Sennosides 8.6 Mg Tablet) 17.2 mg PO BEDTIME PRN PRN Reason: Constipation Sodium Chloride (0.9 % Sodium Chloride Flush 3 Ml Syringe) 3 ml IVFLUSH QSHIFT [facility] Home Medications Medication Instructions Recorded Confirmed Last Taken Type dextroamphetamine-amphetamine 20 20 mg PO BID@0700,1600 07/26/20 03/02/22 1 Day Ago History mg tablet ~04/30/21 multivitamin 1 tab PO DAILY 11/05/20 03/02/22 1 Day Ago History ~04/30/21 tiotropium bromide 2.5 2 puff inhalation DAILY 02/08/21 03/02/22 1 Day Ago History mcg/actuation mist for inhalation ~04/30/21 amlodipine 2.5 mg tablet 2.5 mg PO DAILY 12/22/21 03/02/22 Unknown History budesonide-formoterol HFA 160 2 puff inhalation BID 12/22/21 03/02/22 Unknown History mcg-4.5 mcg/actuation aerosol inhaler (Symbicort) ipratropium bromide 0.02 % 1 inhalation QID 12/22/21 03/02/22 Unknown History solution for inhalation levalbuterol tartrate 45 1 - 2 puff inhalation Q4H PRN 04/20/22 Unknown History mcg/actuation aerosol inhaler Wheezing (Xopenex HFA) lisinopril 20 mg tablet 1 tab PO DAILY 04/20/22 Unknown History Physical Exam Vital Signs and Narrative: Vital Signs: Last Vital Signs Temp 98.1 F 04/20/22 21:50 Pulse 107 H 04/20/22 21:50 Resp 16 04/20/22 21:50 BP 130/78 04/20/22 21:50 Pulse Ox 94 04/20/22 21:50 O2 Del Method 04/20/22 21:50 BMI result Body Mass Index 32.6 Gen: Appears be in no acute distress . Able to speak in full sentences. HEENT: NCAT, Moist mucosa. Pulmonary: Slightly diminished breath sounds. CVS: Normal S1-S2 Abdomen: BS+, Soft, Nontender Extremities: Warm well perfused Neuro: Alert and awake. Grossly nonfocal Results Labs CBC and Chem 7: 04/20/22 19:44 04/20/22 19:44 Labs: Laboratory Results - last 24 hr 04/20/22 04/20/22 04/20/22 19:44 19:44 19:44 MCV 87.6 MCH 29.8 MCHC 34.0 RDW 13.7 Plt Count 404 H MPV 9.6 Immature Gran % (Auto) 0.6 H Neut % (Auto) 72.2 Lymph % (Auto) 20.9 [place] % (Auto) 5.1 Eos % (Auto) 0.6 Baso % (Auto) 0.6 Lymph # (Auto) 2.3 [place] # (Auto) 0.6 Eos # (Auto) 0.1 Baso # (Auto) 0.1 Abs Immat Gran (auto) 0.07 H Absolute Neuts (auto) 7.9 Absolute Nucleated RBC 0.000 Nucleated RBC % (auto) 0.0 Anion Gap 19 Estim Creat Clear Calc 81.9 Estimated GFR > 60 Random Glucose 328 H Calcium 8.9 B-Natriuretic Peptide 23 Urine Color Urine Appearance Urine pH Ur Specific [place] Urine Protein Urine Glucose (UA) Urine Ketones Urine Blood Urine Nitrite Ur Leukocyte Esterase Urine RBC Urine WBC Ur Squamous Epith Cells Urine Bacteria 04/20/22 19:52 MCV MCH MCHC RDW Plt Count MPV Immature Gran % (Auto) Neut % (Auto) Lymph % (Auto) [place] % (Auto) Eos % (Auto) Baso % (Auto) Lymph # (Auto) [place] # (Auto) Eos # (Auto) Baso # (Auto) Abs Immat Gran (auto) Absolute Neuts (auto) Absolute Nucleated RBC Nucleated RBC % (auto) Anion Gap Estim Creat Clear Calc Estimated GFR Random Glucose Calcium B-Natriuretic Peptide Urine Color YELLOW Urine Appearance CLEAR Urine pH 6.5 Ur Specific [place] <= 1.005 Urine Protein NEG Urine Glucose (UA) >=1000 H Urine Ketones NEG Urine Blood NEG Urine Nitrite NEG Ur Leukocyte Esterase NEG Urine RBC 0-2 Urine WBC 0-2 Ur Squamous Epith Cells TRACE Urine Bacteria TRACE Imaging Radiologist's Impressions: Impressions Chest X-Ray 04/20/22 17:58 IMPRESSION: No acute intrathoracic disease. Left basilar atelectasis Assessment and Plan (1) DMII (diabetes mellitus, type 2): Qualifiers: Diabetes mellitus superintendent container terminal insulin use: without superintendent container terminal use Diabetes mellitus complication status: with hyperglycemia Qualified Code(s): E11.65 - Type 2 diabetes mellitus with hyperglycemia Status: Acute (2) Acute exacerbation of chronic obstructive airways disease: Status: Acute Plan 52-year-old female with a past medical history of hypertension, hyperlipidemia, diabetes, COPD-not on home oxygen, history of MRSA infection, fibromyalgia, arthritis, anxiety, depression, sleep apnea, polysubstance abuse; presented to the hospital today with a chief complaint of shortness of breath. noted to have following conditions Acute COPD exacerbation: Patient recently on prednisone as outpatient. No significant improvement. Will keep the patient on IV Solu-Medrol q.i.d. Nebulizations standing and p.r.n. Doxycycline b.i.d. Pulmonology consult Supplemental oxygen p.r.n. D-dimer pending EKG nonischemic Troponin 10-repeat pending History of diabetes: Will give the patient on Lantus 10 units plus insulin sliding scale. Hold home metformin. History of hypertension: Continue home amlodipine, clonidine, lisinopril DVT prophylaxis: Lovenox Code status: Full code Quality Stroke Does the patient have a stroke diagnosis?: No VTE Prior VTE?: No VTE Risk Level:: Medical - moderate - high VTE Device Contraindication: Treatment Not Indicated VTE Drug Contraindication: N/A - Med Ordered
--- NOTE | 2022-04-20 22:41 | PHA.MEDREC ---
Pharmacy Consult ? Medication Reconciliation Pharmacy has completed the medication reconciliation.
--- NOTE | 2022-04-20 22:49 | MHC.CM.PN ---
Attempted to meet with admitted patient with bed assignment pending, but pt was sleeping. CM will need to meet with patient to discuss discharge planning. HCP on file. HCP/ Willi Rich ([phone])
[2022-04-21] VITALS (11 sets, daily range): BP systolic 122–138; BP diastolic 68–87; PULSE 81–101; RESP 16–22; TEMP 36.2–37.1; O2SAT 93–97; BMI 32.6
[2022-04-21] MEDS: Enoxaparin Sodium 40 MG/0.4 ML SYRINGE SUBCUT (00:10)
[2022-04-21] MEDS: methylPREDNISolone Sod Succ 40 MG/ML VIAL IVPUSH ×4 (00:10→16:33)
[2022-04-21] MEDS: 0.9 % Sodium Chloride Flush 3 ML SYRINGE IVFLUSH ×4 (00:15→21:17)
[2022-04-21 00:26] LABS: D Dimer High Sensitivity < 150 NG/ML
[2022-04-21 00:39] LABS: Glucose, Whole Blood 430 mg/dL (60-115)
[2022-04-21 01:19] LABS: Troponin-I High Sensitivity 6.1 ng/L (<3.5-17.0)
[2022-04-21] MEDS: Insulin Lispro 100 UNIT/ML 3 ML VIAL SUBCUT ×6 (01:39→21:14)
[2022-04-21 02:12] LABS: COVID-19 Test Negative (Negative)
[2022-04-21 03:31] LABS: Glucose, Whole Blood 339 mg/dL (60-115)
--- NOTE | 2022-04-21 03:48 | PC.NURSE ---
Dr. Hazel at bedside. Repeat POC 339. Per MD administer Humalog 8 units-recheck POC in 2 hrs at 05:50am. Patient denies s/s of hyperglycemia.
[2022-04-21 05:58] LABS: Glucose, Whole Blood 254 mg/dL (60-115)
[2022-04-21 06:18] LABS: Basophils Percent Auto 0.2 % (0-2); Hematocrit 40.3 % (37.0-47.0); Hemoglobin 13.7 g/dl (12.0-16.0); Imm Gran Abs Auto 0.12 X10*3/uL (0.00-0.03); Imm Gran Pct Auto 0.7 % (0.0-0.4); Lymphocytes Absolute Auto 0.9 X10*3/uL (1.2-4.9); Lymphocytes Percent Auto 5.2 % (20-40); MANUAL DIFF FLAG SCAN; Mean Corpuscular Hemoglobin 29.9 pg (27.0-33.0); Mean Platelet Volume 9.9 fL (9.4-12.3); Monocytes Absolute Auto 0.2 X10*3/uL (0.1-1.2); Monocytes Percent Auto 0.9 % (2-11); Neutrophils Absolute Auto 16.8 x10*3/uL (2.0-8.3); Platelet Count 395 X10*3/uL (160-400); Red Blood Count 4.58 X10*6/uL (4.20-5.50); Red Cell Distribution Width 13.7 % (11.0-16.0); SCAN SMEAR FLAG 1; White Blood Count 18.1 X10*3/uL (4.8-10.8)
[2022-04-21 06:32] LABS: Magnesium 2.1 mg/dL (1.6-2.6)
[2022-04-21 06:33] LABS: Anion Gap 18 (12-20); Blood Urea Nitrogen 13 mg/dL (9-16); Calcium 9.3 mg/dL (8.4-10.2); Carbon Dioxide 20 mmol/L (22-29); Chloride 105 mmol/L (96-108); Creatinine Clr Calc Pharmacy 85.3; Estimated Glomerular Filt Rate > 60; Glucose Random 290 mg/dL (60-115); Potassium 4.2 mmol/L (3.3-5.1); Sodium 139 mmol/L (135-145)
--- NOTE | 2022-04-21 06:49 | PC.NURSE ---
Nurse to nurse report given to SANDRA Darden at [facility].
[2022-04-21 06:57] LABS: SLIDE REVIEW VERIFIED
--- NOTE | 2022-04-21 07:36 | PC.NURSE ---
THIS RN ASSUMED CARE OF THIS PT AT 0700. PT A+O, DENIES PAIN. PT ASSIGNED TO ROOM [id number], RN TO RN REPORT GIVEN. ROOM NOT READY.
[2022-04-21 08:01] LABS: Glucose, Whole Blood 385 mg/dL (60-115)
[2022-04-21] MEDS: Albuterol/Iprat 2.5/0.5MG 3 ML AMPUL.NEB INHALE ×4 (08:27→19:54)
--- NOTE | 2022-04-21 08:34 | MHC.CM.PN ---
Met with Patient at bedside. 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 Home no services is the goal and CM has initiated and will follow for dc planning.Patient may benefit from a Care Team Consult r/t Anxiety, Depression, ADHD, Polysubstance Abuse HISTORY.Patient has received Covid vax X3 and her PCP is Dr. Jaison Navarrete.
[2022-04-21] MEDS: LORazepam 0.5 MG TABLET PO ×2 (08:56→21:14)
--- NOTE | 2022-04-21 11:15 | HO.PM.IMPN ---
Subjective Subjective Date of Service: 04/21/22 Interval History: Admitted due to symptoms of shortness of breath and cough, complaining of persistent shortness of breath, worse with activity, dry cough unable to bring up phlegm, denies associated fever, chills, no nausea no vomiting, quit smoking 2 years ago, no acute events since admission. 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 Review of Systems: Yes all other systems are reviewed and are negative Physical Exam Vital Signs: Vital Signs: Last Vital Signs Temp 97.2 F 04/21/22 09:09 Pulse 94 04/21/22 09:09 Resp 22 H 04/21/22 09:09 BP 127/82 04/21/22 09:09 Pulse Ox 97 04/21/22 09:09 O2 Del Method 04/21/22 04:00 BMI result Body Mass Index 32.6 Const: Other: General awake, alert x3, in no acute distress. Neck supple no JVD, no stridor. CVS regular rate rhythm, Respiratory lungs bilateral expiratory wheeze, no respiratory distress, no rales. Gastrointestinal abdomen soft, nontender, bowel sounds audible, no guarding , no rigidity. Extremities no edema. Neuro nonfocal patient moving all 4 extremity speech clear. Skin no rash Objective Data Active Medications Acetaminophen (Acetaminophen 325 Mg Tablet) 650 mg PO Q6H PRN PRN Reason: Pain, Mild (Pain Scale 1-3) Albuterol/Ipratropium (Albuterol/Iprat 2.5/0.5mg 3 Ml Ampul.Neb) 3 ml INHALE RQ4H WHILE AWAKE [facility] Last Admin: 04/21/22 08:27 Dose: 3 ml Documented By: CHICHI Dextrose (Dextrose 50 % 25 Gm/50 Ml Syringe) 25 gm IVPUSH Q15M PRN; Protocol PRN Reason: per Hypoglycemia Standing Ord. Doxycycline Hyclate (Doxycycline Hyclate 100 Mg Tablet) 100 mg PO Q12H [facility] Last Admin: 04/21/22 00:10 Dose: 100 mg Documented By: EDINSON Enoxaparin Sodium (Enoxaparin Sodium 40 Mg/0.4 Ml Syringe) 40 mg SUBCUT Q24H [facility] Last Admin: 04/21/22 00:10 Dose: 40 mg Documented By: EDINSON Glucose (Glucose Gel 15 Gm Gel..Gram.) 15 gm PO Q15M PRN; Protocol PRN Reason: per Hypoglycemia Standing Ord. Insulin Human Lispro (Insulin Lispro 100 Unit/Ml 3 Ml Vial) 0 unit SUBCUT QIDACHS [facility]; Protocol Last Admin: 04/21/22 08:56 Dose: 10 unit Documented By: CHAUNCEY Lorazepam (Lorazepam 0.5 Mg Tablet) 0.5 mg PO Q12H PRN PRN Reason: anxiety/restlessness Last Admin: 04/21/22 08:56 Dose: 0.5 mg Documented By: CHAUNCEY Melatonin (Melatonin 3 Mg Tablet) 6 mg PO BEDTIME PRN PRN Reason: Insomnia Methylprednisolone Sodium Succinate (Methylprednisolone Sod Succ 40 Mg/Ml Vial) 40 mg IVPUSH Q6H [facility] Last Admin: 04/21/22 06:00 Dose: 40 mg Documented By: EDINSON Senna (Sennosides 8.6 Mg Tablet) 17.2 mg PO BEDTIME PRN PRN Reason: Constipation Sodium Chloride (0.9 % Sodium Chloride Flush 3 Ml Syringe) 3 ml IVFLUSH QSHIFT [facility] Last Admin: 04/21/22 08:56 Dose: 3 ml Documented By: CHAUNCEY Labs CBC & Chem 7: 04/21/22 06:02 04/21/22 06:02 Labs: Laboratory Results - last 24 hr 04/20/22 04/20/22 04/20/22 19:44 19:44 19:44 MCV 87.6 MCH 29.8 MCHC 34.0 RDW 13.7 Plt Count 404 H MPV 9.6 Immature Gran % (Auto) 0.6 H Neut % (Auto) 72.2 Lymph % (Auto) 20.9 [place] % (Auto) 5.1 Eos % (Auto) 0.6 Baso % (Auto) 0.6 Lymph # (Auto) 2.3 [place] # (Auto) 0.6 Eos # (Auto) 0.1 Baso # (Auto) 0.1 Abs Immat Gran (auto) 0.07 H Absolute Neuts (auto) 7.9 Absolute Nucleated RBC 0.000 Nucleated RBC % (auto) 0.0 Smear Tech's Comments D-Dimer High Sensitivty Anion Gap 19 Estim Creat Clear Calc 81.9 Estimated GFR > 60 POC Glucose Random Glucose 328 H Calcium 8.9 Magnesium B-Natriuretic Peptide 23 Urine Color Urine Appearance Urine pH Ur Specific [place] Urine Protein Urine Glucose (UA) Urine Ketones Urine Blood Urine Nitrite Ur Leukocyte Esterase Urine RBC Urine WBC Ur Squamous Epith Cells Urine Bacteria COVID-19 ([facility]) COVID-19 Clin Com 04/20/22 04/20/22 04/21/22 19:52 23:41 00:34 MCV MCH MCHC RDW Plt Count MPV Immature Gran % (Auto) Neut % (Auto) Lymph % (Auto) [place] % (Auto) Eos % (Auto) Baso % (Auto) Lymph # (Auto) [place] # (Auto) Eos # (Auto) Baso # (Auto) Abs Immat Gran (auto) Absolute Neuts (auto) Absolute Nucleated RBC Nucleated RBC % (auto) Smear Tech's Comments D-Dimer High Sensitivty < 150 Anion Gap Estim Creat Clear Calc Estimated GFR POC Glucose 430 H* Random Glucose Calcium Magnesium B-Natriuretic Peptide Urine Color YELLOW Urine Appearance CLEAR Urine pH 6.5 Ur Specific [place] <= 1.005 Urine Protein NEG Urine Glucose (UA) >=1000 H Urine Ketones NEG Urine Blood NEG Urine Nitrite NEG Ur Leukocyte Esterase NEG Urine RBC 0-2 Urine WBC 0-2 Ur Squamous Epith Cells TRACE Urine Bacteria TRACE COVID-19 ([facility]) COVID-19 Clin Com 04/21/22 04/21/22 04/21/22 01:50 03:26 05:51 MCV MCH MCHC RDW Plt Count MPV Immature Gran % (Auto) Neut % (Auto) Lymph % (Auto) [place] % (Auto) Eos % (Auto) Baso % (Auto) Lymph # (Auto) [place] # (Auto) Eos # (Auto) Baso # (Auto) Abs Immat Gran (auto) Absolute Neuts (auto) Absolute Nucleated RBC Nucleated RBC % (auto) Smear Tech's Comments D-Dimer High Sensitivty Anion Gap Estim Creat Clear Calc Estimated GFR POC Glucose 339 H 254 H Random Glucose Calcium Magnesium B-Natriuretic Peptide Urine Color Urine Appearance Urine pH Ur Specific [place] Urine Protein Urine Glucose (UA) Urine Ketones Urine Blood Urine Nitrite Ur Leukocyte Esterase Urine RBC Urine WBC Ur Squamous Epith Cells Urine Bacteria COVID-19 ([facility]) Negative COVID-19 Clin Com See Note 08/04/22 08/04/22 08/04/22 06:02 06:02 06:02 MCV 88.0 MCH 29.9 MCHC 34.0 RDW 13.7 Plt Count 395 MPV 9.9 Immature Gran % (Auto) 0.7 H Neut % (Auto) 93.0 H Lymph % (Auto) 5.2 L [place] % (Auto) 0.9 L Eos % (Auto) 0.0 Baso % (Auto) 0.2 Lymph # (Auto) 0.9 L [place] # (Auto) 0.2 Eos # (Auto) 0.0 Baso # (Auto) 0.0 Abs Immat Gran (auto) 0.12 H Absolute Neuts (auto) 16.8 H Absolute Nucleated RBC 0.000 Nucleated RBC % (auto) 0.0 Smear Tech's Comments VERIFIED D-Dimer High Sensitivty Anion Gap 18 Estim Creat Clear Calc 85.3 Estimated GFR > 60 POC Glucose Random Glucose 290 H Calcium 9.3 Magnesium 2.1 B-Natriuretic Peptide Urine Color Urine Appearance Urine pH Ur Specific [place] Urine Protein Urine Glucose (UA) Urine Ketones Urine Blood Urine Nitrite Ur Leukocyte Esterase Urine RBC Urine WBC Ur Squamous Epith Cells Urine Bacteria COVID-19 ([facility]) COVID-[employer] 04/21/22 07:57 MCV MCH MCHC RDW Plt Count MPV Immature Gran % (Auto) Neut % (Auto) Lymph % (Auto) [place] % (Auto) Eos % (Auto) Baso % (Auto) Lymph # (Auto) [place] # (Auto) Eos # (Auto) Baso # (Auto) Abs Immat Gran (auto) Absolute Neuts (auto) Absolute Nucleated RBC Nucleated RBC % (auto) Smear Tech's Comments D-Dimer High Sensitivty Anion Gap Estim Creat Clear Calc Estimated GFR POC Glucose 385 H* Random Glucose Calcium Magnesium B-Natriuretic Peptide Urine Color Urine Appearance Urine pH Ur Specific [place] Urine Protein Urine Glucose (UA) Urine Ketones Urine Blood Urine Nitrite Ur Leukocyte Esterase Urine RBC Urine WBC Ur Squamous Epith Cells Urine Bacteria COVID-19 ([facility]) COVID-19 [employer] Com Assessment and Plan (1) Acute exacerbation of chronic obstructive airways disease: Status: Acute (2) DMII (diabetes mellitus, type 2): Status: Acute Plan 51-year-old female with history of asthma/chronic obstructive? pulmonary disease overlap syndrome, history of tracheomalacia, attention deficit hyperactivity disorder, fibromyalgia, who presented to [facility] with shortness of breath and?cough and admitted with Acute exac.of chronic obstructive pulmonary disease/asthma exacerbation.? ? ? persistent? shortness of breath and wheeze, ? ? Continue IV steroids, continue,scheduled and as needed updraft treatment, and cough medication.? ? ? continue Singulair and Claritin D-dimer less than 150, normal troponin ? ? Chest x-ray showed left basilar atelectasis, no acute disease, Add incentive spirometry, wean oxygen, encourage ambulation Leukocytosis likely due to steroids patient was on prednisone prior to admission, no evidence of sepsis History of diabetes mellitus, elevated blood sugars likely due steroids.?continue diabetic diet and insulin sliding scale. Resume metformin Hypertension stable blood pressure, resume lisinopril . History of attention deficit hyperactivity disorder.? Resume Adderall home dose. . Deep vein thrombosis prophylaxis.?? on Lovenox. . Patient will need continued inpatient hospitalization due to acute exacerbation of overlap syndrome requiring IV steroids and schedule updraft treatment Quality Stroke Does the patient have a stroke diagnosis?: No VTE Prior VTE?: No VTE Risk Level:: Medical - moderate - high VTE Device Contraindication: Treatment Not Indicated VTE Drug Contraindication: N/A - Med Ordered
[2022-04-21 12:04] LABS: Glucose, Whole Blood 308 mg/dL (60-115)
--- NOTE | 2022-04-21 12:04 | PM.CNPUL ---
History of Present Illness History of Present Illness Consult date: 04/21/22 Reason for consult: asthma and COPD Chief complaint: asthma Narrative: This 51 years old female, with longstanding history of bronchial asthma/copd is admitted with a few days history of increased shortness of breath, cough and congested feeling. She started having increased respiratory symptoms the about 1 and half week ago, she has been treated with the a short course of prednisone tapering does, which she finished just 2 days ago. As soon as she finished her prednisone she starts having increased respiratory symptoms again. Denies any fever or chills and also denies any chest pain. She has past history of smoking but not for the past few years. She does have history of vaping off and on. She also admits of smoking marijuana off and on. She has past history of substance abuse especially cocaine. Patient has history of chronic anxiety, fibromyalgia, arthritis symptoms, depression, hypertension, hyperlipidemia, diabetes mellitus. In the past she has been steroids dependent. About 2 years ago when she was seeing me here for her pulmonary issues, she was told not to use the prednisone except when needed. She had been started on montelukast 10 mg daily which helps to control her symptoms. She was last seen by me in August 2020, and after that she ended up being hospitalized at [facility], and is followed by , Director [facility] at [facility]. Review of Systems Review of Systems: Yes all other systems are reviewed and are negative Eyes: Eyes: Reports no additional eye complaints ENT: Reports nasal congestion (Mild off and on) Cardiovascular: Cardiovascular: Reports rapid heart rate (With use of albuterol) and Reports leg edema Respiratory: Respiratory: Reports as per HPI Gastrointestinal: Gastrointestinal: Reports no additional gastrointestinal complaints Genitourinary: Genitourinary: Reports no additional female genitourinary complaints Musculoskeletal: Musculoskeletal: Reports back pain and Reports myalgias Integumentary/Breasts: Skin/Breast: Reports system reviewed and no additional complaints, except as docu Neurologic: Reports system reviewed and no additional complaints, except as documented Psychiatric: Psychiatric: Reports anxiety and Reports depression Endocrine: Endocrine: Reports other (Diabetes mellitus) [facility] Past Medical History Medical History ADHD Alcohol abuse Anxiety Asthma Asthma-COPD overlap syndrome Cocaine abuse COPD (chronic obstructive pulmonary disease) DMII (diabetes mellitus, type 2) Epilepsy Fibromyalgia History of suicide attempt HTN (hypertension) Obese Sleep apnea Tracheomalacia Family History Family History Father No problems noted. 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 If so, by whom?: No Do you feel safe in your current relationship?: Yes Is there a partner from a previous relationship who is making you feel unsafe now?: No Are you made to feel afraid or neglected: No Advance Directives: Yes Advance Directives on File: Yes Advance Directives Date on File: 11/05/20 Do you have thoughts of harming others: None Do you have a plan to hurt others: No Plan Recently lost weight without trying: No Eating poorly because of decreased appetite: No Nutrition Risks: No Nutritional Risk Patient : No : No Poor oral hygiene: No service: No Current occupational status: disabled Cognitive needs: Yes (Pt would like a cane ) Hearing needs: Yes (?hearing loss mostly from right ear.) Vision needs: Yes (Pt was seen 6 months and exam was good just need readig glasses.) Meds Allergies Allergy/AdvReac Type Severity Reaction Status Date / Time hydromorphone [From DILAUDID] Allergy Severe SEIZURES Verified 04/20/22 17:41 oxycodone [OXYCODONE] Allergy Severe SEIZURES Verified 04/16/22 14:28 vancomycin Allergy Severe Rash Verified 04/16/22 14:28 gabapentin [GABAPENTIN] Allergy Intermediate MUSCLE ACHE Verified 04/16/22 14:28 albuterol Allergy Mild Trouble Verified 04/16/22 14:28 breathing;MDI use only bupropion [From WELLBUTRIN] Allergy Unknown SEIZURES Verified 04/16/22 14:28 phenytoin [Dilantin] Allergy Unknown Unknown Verified 04/16/22 14:28 Active Medications: Current Medications Acetaminophen (Acetaminophen 325 Mg Tablet) 650 mg PO Q6H PRN PRN Reason: Pain, Mild (Pain Scale 1-3) Albuterol/Ipratropium (Albuterol/Iprat 2.5/0.5mg 3 Ml Ampul.Neb) 3 ml INHALE RQ4H WHILE AWAKE [facility] Last Admin: 04/21/22 11:22 Dose: 3 ml Amphetamine/Dextroamphetamine (Amphetamine Mixed Salts 20 Mg Tablet) 20 mg PO BID@0700,1600 [facility] Dextrose (Dextrose 50 % 25 Gm/50 Ml Syringe) 25 gm IVPUSH Q15M PRN; Protocol PRN Reason: per Hypoglycemia Standing Ord. Doxycycline Hyclate (Doxycycline Hyclate 100 Mg Tablet) 100 mg PO Q12H [facility] Last Admin: 04/21/22 00:10 Dose: 100 mg Enoxaparin Sodium (Enoxaparin Sodium 40 Mg/0.4 Ml Syringe) 40 mg SUBCUT Q24H [facility] Last Admin: 04/21/22 00:10 Dose: 40 mg Glucose (Glucose Gel 15 Gm Gel..Gram.) 15 gm PO Q15M PRN; Protocol PRN Reason: per Hypoglycemia Standing Ord. Insulin Human Lispro (Insulin Lispro 100 Unit/Ml 3 Ml Vial) 0 unit SUBCUT QIDACHS [facility]; Protocol Last Admin: 04/21/22 08:56 Dose: 10 unit Lisinopril (Lisinopril 20 Mg Tablet) 20 mg PO DAILY [facility]; Protocol Lorazepam (Lorazepam 0.5 Mg Tablet) 0.5 mg PO Q12H PRN PRN Reason: anxiety/restlessness Last Admin: 04/21/22 08:56 Dose: 0.5 mg Melatonin (Melatonin 3 Mg Tablet) 6 mg PO BEDTIME PRN PRN Reason: Insomnia Metformin HCl (Metformin Hcl 1,000 Mg Tablet) 1,000 mg PO BIDWM [facility] Methylprednisolone Sodium Succinate (Methylprednisolone Sod Succ 40 Mg/Ml Vial) 40 mg IVPUSH Q6H [facility] Last Admin: 04/21/22 06:00 Dose: 40 mg Multivitamins/Vitamin C (Multivitamin Tablet) 1 tab PO DAILY [facility] Non-Formulary Medication (Disulfiram) 250 mg PO DAILY [facility] Senna (Sennosides 8.6 Mg Tablet) 17.2 mg PO BEDTIME PRN PRN Reason: Constipation Sodium Chloride (0.9 % Sodium Chloride Flush 3 Ml Syringe) 3 ml IVFLUSH QSHIFT [facility] Last Admin: 04/21/22 08:56 Dose: 3 ml Home Medications Medication Instructions Recorded Confirmed Last Taken Type dextroamphetamine-amphetamine 20 20 mg PO BID@0700,1600 07/26/20 04/20/22 04/20/22 History mg tablet multivitamin 1 tab PO DAILY 11/05/20 04/20/22 04/20/22 History budesonide-formoterol HFA 160 2 puff inhalation BID 12/22/21 04/20/22 04/20/22 History mcg-4.5 mcg/actuation aerosol inhaler (Symbicort) acetaminophen 650 mg 650 mg PO Q12H PRN Pain 04/20/22 04/20/22 04/20/22 History tablet,extended release (Tylenol Arthritis Pain) levalbuterol tartrate 45 1 - 2 puff inhalation Q4H PRN 04/20/22 04/20/22 04/20/22 History mcg/actuation aerosol inhaler Wheezing (Xopenex HFA) lisinopril 20 mg tablet 1 tab PO DAILY 04/20/22 04/20/22 04/20/22 History Physical Exam Vital Signs: Vital Signs: Last Vital Signs Temp 97.2 F 04/21/22 09:09 Pulse 86 04/21/22 11:24 Resp 17 04/21/22 11:24 BP 127/82 04/21/22 09:09 Pulse Ox 97 04/21/22 09:09 O2 Del Method 04/21/22 04:00 BMI result Body Mass Index 32.6 Const: Other: Anxious but not in any respiratory distress . General: comfortable, no acute distress, alert and awake Orientation/consciousness: patient oriented x3 HEENT: Head: Yes normal to inspection General nose exam: No nasal polyps present and No nasal discharge present Face and sinus: Yes sinuses nontender Mouth: oropharynx normal Throat: Yes posterior oropharynx normal Eyes: General: appearance normal, both eyes and all related structures Neck: Neck: Yes normal visual inspection, Yes no lymphadenopathy, Yes trachea midline and Yes no JVD Thyroid: Thyroid normal Chest: Chest palpation & inspection: normal inspection of the chest, normal palpation of entire chest wall and no tenderness Resp: Other: Percussion note is resonant, she has equal breath sounds on both sides. The breath sounds are slightly distant with harsh inspiratory phase. There are scattered expiratory wheezes on both sides. Cardio: Palpation: normal PMI Rate: regular rate Rhythm: regular rhythm Heart sounds: no gallops and no murmurs Peripheral pulses: Peripheral pulses 2+ throughout GI: Palpation (GI): Soft to palpation, nontender, No hepatosplenomegaly present and no masses Auscultation: normal bowel sounds Back/Spine/Pelvis: Thoracic/Lumbar Spine: thoracic and lumbar spine normal to inspection Skin: General skin exam: no rashes or lesions noted Neuro: General: patient oriented x3 and no focal motor deficits Cranial nerves: Yes CN's II-XII intact bilaterally Extrem: General: Yes normal to inspection, Yes no clubbing, cyanosis or edema and Yes no calf tenderness Psych: Speech and movement: Normal speech and movement present Affect: Anxious affect present Results Laboratory Findings CBC and BMP: 04/21/22 06:02 04/21/22 06:02 Abnormal lab findings: Abnormal Labs 04/20/22 04/20/22 04/20/22 19:44 19:44 19:52 WBC 10.9 H Plt Count 404 H Immature Gran % (Auto) 0.6 H Neut % (Auto) Lymph % (Auto) [place] % (Auto) Lymph # (Auto) Abs Immat Gran (auto) 0.07 H Absolute Neuts (auto) Carbon Dioxide POC Glucose Random Glucose 328 H Urine Glucose (UA) >=1000 H 04/21/22 04/21/22 04/21/22 00:34 03:26 05:51 WBC Plt Count Immature Gran % (Auto) Neut % (Auto) Lymph % (Auto) [place] % (Auto) Lymph # (Auto) Abs Immat Gran (auto) Absolute Neuts (auto) Carbon Dioxide POC Glucose 430 H* 339 H 254 H Random Glucose Urine Glucose (UA) 04/21/22 04/21/22 04/21/22 06:02 06:02 07:57 WBC 18.1 H Plt Count Immature Gran % (Auto) 0.7 H Neut % (Auto) 93.0 H Lymph % (Auto) 5.2 L [place] % (Auto) 0.9 L Lymph # (Auto) 0.9 L Abs Immat Gran (auto) 0.12 H Absolute Neuts (auto) 16.8 H Carbon Dioxide 20 L POC Glucose 385 H* Random Glucose 290 H Urine Glucose (UA) 04/21/22 11:59 WBC Plt Count Immature Gran % (Auto) Neut % (Auto) Lymph % (Auto) [place] % (Auto) Lymph # (Auto) Abs Immat Gran (auto) Absolute Neuts (auto) Carbon Dioxide POC Glucose 308 H Random Glucose Urine Glucose (UA) Diagnostic Findings Chest x-ray: report reviewed and image reviewed Assessment and Plan (1) Asthma with exacerbation: Status: Acute (2) Tracheomalacia: Status: Acute (3) Sleep apnea: Status: Acute Plan This patient with chronic persistent allergic type of bronchial asthma, Is admitted with an acute exacerbation, which may be prompted by coming off the prednisone. She has past history of dependence on steroids. She does have history of mild tracheomalacia, which has not required any intervention. Has history of substance abuse/ history of Vaping electronic cigarettes. She is improving on the current regimen. Recc. Treat with IV Solu-Medrol 40 mg Q 8 hours for 1 or 2 days, then she would be on a short course of prednisone. In her case I would suggest that we wean her off prednisone relatively slowly, such as 40 mg a day for 5 days 30 mg a day for 5 days 20 mg a day for 5 days then 10 mg a day for 5 days. After which she should be continued on 5 mg daily as a long-term maintenance dose. She should be restarted on Symbicort 160-4.52 puffs b.i.d., Xopenex by nebulizer of orHFA Q 6 hours p.r.n.. I would also restart her on montelukast 10 mg daily. 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 Procedures Date of Service Date of Service: 04/21/22
[2022-04-21] MEDS: metFORMIN HCl 1,000 MG TABLET 1000 MG PO ×2 (12:29→16:33)
[2022-04-21] MEDS: Amphetamine Mixed Salts 20 MG TABLET PO (15:22)
[2022-04-21 15:42] LABS: Glucose, Whole Blood 289 mg/dL (60-115)
[2022-04-21] MEDS: Disulfiram 250 MG TABLET PO (16:33)
[2022-04-21] MEDS: Montelukast Sodium 10 MG TABLET PO (16:37)
[2022-04-21 19:57] LABS: Glucose, Whole Blood 251 mg/dL (60-115)
[2022-04-21] MEDS: Melatonin 3 MG TABLET 6 MG PO (21:14)
[2022-04-22] MEDS: Enoxaparin Sodium 40 MG/0.4 ML SYRINGE SUBCUT (00:11)
[2022-04-22] MEDS: methylPREDNISolone Sod Succ 40 MG/ML VIAL IVPUSH ×2 (00:12→06:02)
[2022-04-22 00:15] VITALS: PULSE 89; O2SAT 94
[2022-04-22 03:25] VITALS: BP 132/70; PULSE 92; RESP 18; TEMP 35.8; O2SAT 95
[2022-04-22] MEDS: Amphetamine Mixed Salts 20 MG TABLET PO (06:02)
[2022-04-22 07:21] LABS: Glucose, Whole Blood 319 mg/dL (60-115)
[2022-04-22] MEDS: Albuterol/Iprat 2.5/0.5MG 3 ML AMPUL.NEB INHALE (07:44)
[2022-04-22 07:45] VITALS: PULSE 84; O2SAT 95
[2022-04-22 07:50] VITALS: BP 130/80; PULSE 89; RESP 19; TEMP 36.3; O2SAT 100
[2022-04-22] MEDS: lisinopriL 20 MG TABLET PO (08:03)
[2022-04-22] MEDS: metFORMIN HCl 1,000 MG TABLET 1000 MG PO (08:03)
[2022-04-22] MEDS: 0.9 % Sodium Chloride Flush 3 ML SYRINGE IVFLUSH (08:03)
[2022-04-22] MEDS: Multivitamin TABLET 1 TAB PO (08:03)
[2022-04-22] MEDS: Insulin Lispro 100 UNIT/ML 3 ML VIAL SUBCUT (08:04)
--- NOTE | 2022-04-22 10:05 | P.DS_ITS ---
DS: Providers Provider Date of Service: 04/22/22 Date of admission: 04/20/22 22:08 Primary care physician: Jaison Navarrete PA-C Consults: 04/20/22 22:08 Consult to Pulmonology Routine Consulting Provider: Xu Lopez Reason for consultation: COPD exacerbation; failed out pt prednisone DS: Diagnosis Discharge Diagnosis (1) Asthma with exacerbation: Status: Acute (2) Tracheomalacia: Status: Acute (3) Sleep apnea: Status: Acute DS: Summary Hospital Course Hospital Course: History of presenting illness Chief Complaint: SOB ?52-year-old female with a past medical history of hypertension, hyperlipidemia, diabetes, COPD-not on home oxygen, history of MRSA infection, fibromyalgia, arthritis, anxiety, depression, sleep apnea, polysubstance abuse; presented to the hospital today with a chief complaint of shortness of breath.? Patient reports that for the past few days he has been having shortness of breath associated with the cough.? Patient mentioned that she recently finished a course of prednisone about 2 days ago.? But she started all of shortness of breath again, worsens on exertion.? Mentions no significant improvement with her home ? Inhalers Denies any fevers and chills.? Denies any cough.? Denies any chest pain or palpitations. ?denies any recent travel or sick contacts.? Review of all other systems is negative except mentioned above ER course: Per ER team patient on presentation noted to be in mild respiratory distress, tight on examination; patient was given 2 hour long nebulizations and steroids.? Also received magnesium.? Admitted to the hospital for further management. 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, history of tracheomalacia, attention deficit hyperactivity disorder, fibromyalgia, who presented to [facility] with shortness of breath and?cough and admitted with Acute exac.of chronic obstructive pulmonary disease/asthma exacerbation, patient admitted to medical floor treated with IV steroids scheduled and as needed updraft treatment and cough medication and was continued on home medication of Singulair and Claritin patient D-dimer was less than 150 troponins were within normal range chest x-ray showed left basilar atelectasis otherwise no acute disease, patient responded well to above treatment currently she is doing well with no shortness of breath at rest or with activity therefore she is being discharged home on 3 more days of prednisone and recommended to continue updraft treatment as needed and home inhalers, she was noted to have leukocytosis likely due to recent use of steroid.? ? In regard? History of diabetes mellitus, elevated blood sugars were noted likely due steroids.?continue diabetic diet and metformin Hypertension stable blood pressure, continue lisinopril History of attention deficit hyperactivity disorder.? Continue? Adderall home dose. Time Spent with Patient Time attestation: Total time spent providing and/or coordinating discharge services: Discharge coordination time: Greater than 30 minutes Quality: Safe Use of Opioids Does Pt have an Active Cancer Diagnosis on the Problem List?: No Quality: Stroke Does the patient have a stroke diagnosis?: No Physical Exam Vital Signs: Vital Signs: Last Vital Signs Temp 97.3 F 04/22/22 07:50 Pulse 89 04/22/22 07:50 Resp 19 04/22/22 07:50 BP 130/80 04/22/22 07:50 Pulse Ox 100 04/22/22 07:50 O2 Del Method 04/22/22 07:50 O2 Flow Rate 2 04/21/22 22:58 BMI result Body Mass Index 32.6 Const: Other: General awake, alert x3, in no acute distress.? Neck supple no JVD, no stridor. CVS? regular rate rhythm, Respiratory lungs few end-expiratory wheeze, no respiratory distress, no rales. Gastrointestinal abdomen soft, nontender, bowel sounds audible, no guarding , no rigidity. Extremities no edema. Neuro nonfocal patient moving all 4 extremity speech clear. Skin no rash DS: Data Data Completed and Pending Completed studies during hospitalization [Text1]: Procedures Detoxification Services for Substance Abuse Treatment (10/08/20) Labs on day of discharge: Laboratory Results - last 24 hr 04/21/22 04/21/22 04/21/22 11:59 15:34 19:54 POC Glucose 308 H 289 H 251 H 04/22/22 07:18 POC Glucose 319 H Discharge Plan Discharge Patient Disposition: Home, Self-Care Discharge Diagnosis: Acute asthma/COPD exacerbation Referrals: Jaison Navarrete PA-C [Primary Care Provider] - 1 Week Discharge Medications: New ipratropium-albuterol 0.5 mg-3 mg(2.5 mg base)/3 mL Solution For Nebulization 3 ml inhalation Q4-6H PRN (Reason: shortness of breath or wheezing) Qty: 180 0RF prednisone 20 mg tablet 20 mg PO DAILY Qty: 3 0RF Continued ipratropium-albuterol 0.5 mg-3 mg(2.5 mg base)/3 mL solution for nebulization 3 ml inhalation Q4-6H PRN (Reason: shortness of breath or wheezing) Qty: 180 0RF dextroamphetamine-amphetamine 20 mg tablet 20 mg PO BID@0700,1600 (DME) blood-glucose meter [Accu-Chek Guide Glucose Meter] Misc See Rx Instructions .ROUTE .MEDSUPPLY Qty: 1 0RF Rx Instructions: As directed (DME) Accu-Chek Guide test strips Strip See Rx Instructions .ROUTE .MEDSUPPLY Qty: 100 0RF Rx Instructions: As directed ([facility] [place]) lancets [Accu-Chek Multiclix Lancet] Misc See Rx Instructions .ROUTE .MEDSUPPLY Qty: 100 0RF Rx Instructions: As directed multivitamin Tablet 1 tab PO DAILY levalbuterol tartrate [Xopenex HFA] 45 mcg/actuation HFA aerosol inhaler 1 - 2 puff inhalation Q4H PRN (Reason: Wheezing) lisinopril 20 mg tablet 1 tab PO DAILY acetaminophen [Tylenol Arthritis Pain] 650 mg tablet extended release 650 mg PO Q12H PRN (Reason: Pain) baclofen 10 mg tablet 10 mg PO BID PRN (Reason: muscle spasm) 30 Days Qty: 60 2RF metformin 1,000 mg tablet 1,000 mg PO BIDWMEAL 30 Days Qty: 60 3RF budesonide-formoterol [Symbicort] 160-4.5 mcg/actuation HFA aerosol inhaler 2 puff inhalation BID disulfiram 250 mg tablet 250 mg PO DAILY 30 Days Qty: 30 2RF Discharge Orders: Discharge Order (Routine); Ordered 04/22/22 Ordered By: Dudley Amezcua Diet: Diabetic diet Activity on Discharge: As tolerated Stand Alone Forms: Patient Portal Discharge page Care Plan Goals: Take prednisone as directed for 3 more days, avoid exposure to secondhand smoke allergens take DuoNeb updraft treatment as needed every 4-6 hours Health Concerns: Continue all home medication Plan of Treatment: Follow-up with primary care physician and pulmonology Assessment: As per discharge summary
--- NOTE | 2022-04-22 10:05 | MHC.CM.PN ---
pt dcd home no skilled servceis ordered by
== END 2022-04-22 10:45 | disposition home or self-care (01) | DRG 140 ==
LOC: HO.ED 22:13 → HO.EDOVER 22:27 → HO.IMC 04-21 06:40
PROVIDERS: Nurse Practitioner Family; Admitting Provider Hospitalist; Emergency Provider Emergency Medicine Emergency Medical Services; PCP Physician Assistant; Visit Provider Hospitalist
DX: J44.1 Chronic obstructive pulmonary disease with (acute) exacerbation (principal); E11.65 Type 2 diabetes mellitus with hyperglycemia; I10 Essential (primary) hypertension; M79.7 Fibromyalgia; J45.901 Unspecified asthma with (acute) exacerbation; F90.9 Attention-deficit hyperactivity disorder, unspecified type; T38.0X5A Adverse effect of glucocorticoids and synthetic analogues, initial encounter; D72.829 Elevated white blood cell count, unspecified; J39.8 Other specified diseases of upper respiratory tract; G47.30 Sleep apnea, unspecified; E78.5 Hyperlipidemia, unspecified; Z20.822 Contact with and (suspected) exposure to COVID-19; Z86.14 Personal history of Methicillin resistant Staphylococcus aureus infection; Z91.51 Personal history of suicidal behavior; Z87.891 Personal history of nicotine dependence; Z79.84 Long term (current) use of oral hypoglycemic drugs; Z79.52 Long term (current) use of systemic steroids; Z79.899 Other long term (current) drug therapy
CPT/HCPCS: 36415; 71045; 80048; 81001; 81003; 82947; 83735; 83880; 84484; 85025; 85379; 87635; 93005; 94640; 94644; 94645; 96365; 96366; 96375; 99285; J1650; J2920; J2930; J3475

== ENCOUNTER 2023-01-11 11:41 | Emergency (ER) | payer BC, MEDICARE, SELFPAY ==
--- NOTE | ~2023-01-11 | XR_ITS ---
EXAMINATION: XR CHEST CLINICAL INFORMATION: Difficulty breathing and shortness of breath COMPARISON: None available. TECHNIQUE: Frontal view of the chest was obtained. FINDINGS: Lungs grossly clear. Heart and pulmonary vessels normal. No congestive failure. XR/XR chest 1V IMPRESSION: No active disease.
[2023-01-11 11:44] VITALS: BP 157/90; PULSE 85; RESP 20; TEMP 36.4; O2SAT 95; BMI 29.8
--- NOTE | 2023-01-11 11:44 | ED_ITS ---
HPI - SOB/Dyspnea General Chief Complaint: Dyspnea <DANA Oconnell - Last Filed: 01/11/23 11:46> Stated Complaint: asthma, trouble breathing <DANA Oconnell - Last Filed: 01/11/23 11:46> Time Seen by Provider: 01/11/23 12:07 <DANA Oconnell - Last Filed: 01/11/23 11:46> Source: patient <DANA Saab - Last Filed: 01/11/23 13:59> Mode of arrival: ambulatory <DANA Saab - Last Filed: 01/11/23 13:59> Limitations: no limitations <DANA Saab Last Filed: 01/11/23 13:59> History of Present Illness HPI Narrative: 52 yo female history of severe persistent asthma, tracheomalacia, TEO, diabetes, ADHD, anxiety/depression, former ETOH abuse on current Antabuse and history of MRSA PNA who presents to ER for evaluation of 2.5 days of worsening SOB and wheezing. She states her symptoms started after her mowed the lawn with the windows open. She has been using her xopenex, duonebs, and symbicort at home. She denies fever, chills, URI symptoms or known sick contacts. She states her asthma has been well controlled in the last year and she has not needed to go to the ER. <DANA Saab - Last Filed: 01/11/23 13:59> MD elicited complaint: shortness of breath and asthma attack <DANA Saab - Last Filed: 01/11/23 13:59> Pertinent past history: asthma and pneumonia <DANA Saab Last Filed: 01/11/23 13:59> Onset (ago): day(s) (2.5) <DANA Saab - Last Filed: 01/11/23 13:59> Context: allergen exposure <DANA Saab - Last Filed: 01/11/23 13:59> Timing: progressively worsening <DANA Saab Last Filed: 01/11/23 13:59> Severity: similar to previous episodes <DANA Saab - Last Filed: 01/11/23 13:59> Exacerbating factors: coughing, inspiration and allergies <DANA Saab - Last Filed: 01/11/23 13:59> Relieving factors: bronchodilators <DANA Saab - Last Filed: 01/11/23 13:59> Known history of: asthma <DANA Saab - Last Filed: 01/11/23 13:59> Associated symptoms: cough, wheezing and chest congestion <DANA Saab - Last Filed: 01/11/23 13:59> Treatment prior to arrival: bronchodilator <DANA Saab - Last Filed: 01/11/23 13:59> Related Data Home oxygen amount: none <DANA Saab - Last Filed: 01/11/23 13:59> Home Medications: Home Medications Medication Instructions Recorded Confirmed dextroamphetamine-amphetamine 20 20 mg PO BID@0700,1600 07/26/20 04/20/22 mg tablet multivitamin 1 tab PO DAILY 11/05/20 04/20/22 budesonide-formoterol HFA 160 2 puff inhalation BID 12/22/21 04/20/22 mcg-4.5 mcg/actuation aerosol inhaler (Symbicort) acetaminophen 650 mg 650 mg PO Q12H PRN Pain 04/20/22 04/20/22 tablet,extended release (Tylenol Arthritis Pain) levalbuterol tartrate 45 1 - 2 puff inhalation Q4H PRN 04/20/22 04/20/22 mcg/actuation aerosol inhaler Wheezing (Xopenex HFA) lisinopril 20 mg tablet 1 tab PO DAILY 04/20/22 04/20/22 Previous Rx's Medication Instructions Recorded blood sugar diagnostic (Accu-Chek #100 ea 10/11/20 Guide test strips) blood-glucose meter (Accu-Chek #1 ea 10/11/20 Guide Glucose Meter) lancets (Accu-Chek Multiclix #100 ea 10/11/20 Lancet) ipratropium 0.5 mg-albuterol 3 mg 3 ml inhalation Q4-6H PRN 12/13/20 (2.5 mg base)/3 mL nebulization shortness of breath or wheezing soln #180 mL baclofen 10 mg tablet 10 mg PO BID PRN muscle spasm 30 01/13/22 days #60 tabs disulfiram 250 mg tablet 250 mg PO DAILY 30 days #30 tabs 02/02/22 metformin 1,000 mg tablet 1,000 mg PO BIDWMEAL 30 days #60 03/02/22 tabs ipratropium 0.5 mg-albuterol 3 mg 3 ml inhalation Q4-6H PRN 04/22/22 (2.5 mg base)/3 mL nebulization shortness of breath or wheezing soln #180 mL prednisone 20 mg tablet 20 mg PO DAILY #3 tabs 04/22/22 prednisone 10 mg tablets in a dose See Taper PO DIRECTED #48 ea 01/11/23 pack <DANA Oconnell - Last Filed: 01/11/23 11:46> Allergies/Adverse Reactions: Allergies Allergy/AdvReac Type Severity Reaction Status Date / Time hydromorphone [From DILAUDID] Allergy Severe SEIZURES Verified 04/20/22 17:41 oxycodone [OXYCODONE] Allergy Severe SEIZURES Verified 04/16/22 14:28 vancomycin Allergy Severe Rash Verified 04/16/22 14:28 gabapentin [GABAPENTIN] Allergy Intermediate MUSCLE ACHE Verified 04/16/22 14:28 albuterol Allergy Mild Trouble Verified 04/16/22 14:28 breathing;MDI use only bupropion [From WELLBUTRIN] Allergy Unknown SEIZURES Verified 04/16/22 14:28 phenytoin [Dilantin] Allergy Unknown Unknown Verified 04/16/22 14:28 <DANA Oconnell - Last Filed: 01/11/23 11:46> Review of Systems Review of Systems: Yes all other systems are reviewed and are negative <DANA Saab - Last Filed: 01/11/23 13:59> [facility] Past Medical History Medical History: Medical History ADHD Alcohol abuse Anxiety Asthma Asthma-COPD overlap syndrome Cocaine abuse COPD (chronic obstructive pulmonary disease) DMII (diabetes mellitus, type 2) Epilepsy Fibromyalgia History of suicide attempt HTN (hypertension) Obese Sleep apnea Tracheomalacia <DANA Oconnell - Last Filed: 01/11/23 11:46> Surgical History: Surgical History History of cholecystectomy Previous section <DANA Oconnell - Last Filed: 01/11/23 11:46> Family History Family History: Family History Father No problems noted. Mother Cervical cancer Mental health disorder <DANA Oconnell - Last Filed: 01/11/23 11:46> Social History Social History: Social History (Updated 04/21/22 @ 09:10 by Christian Cardenas RN) Household Members: Spouse, Family and Children Housing: House Are you a primary personal carer to a significant other at home: Yes Do you presently have visiting nurse or other home services: No Alcohol intake: former Patient Tobacco Use Status: Former Tobacco user Tobacco use type: Cigarette Cigarettes Per Day: 25 Years Smoked: 20 Smoked in Last 30 Days: No e-Cigarette/Vaping Use: Currently Using Second Hand Smoke Exposure: No Use of substances other than those prescribed or required for medical reasons: Yes Substance Use Type: Marijuana Substance Use Frequency: Weekly Advance Directives: Yes Advance Directives on File: Yes Advance Directives Date on File: 11/05/20 service: No Current occupational status: disabled Cognitive needs: Yes (Pt would like a cane ) Hearing needs: Yes (?hearing loss mostly from right ear.) Vision needs: Yes (Pt was seen 6 months and exam was good just need readig glasses.) <DANA Oconnell - Last Filed: 01/11/23 11:46> Physical Exam Vital Signs: Vital Signs: Last Vital Signs Temp 98.0 F 01/11/23 12:21 Pulse 94 01/11/23 12:21 Resp 20 01/11/23 12:21 BP 118/63 01/11/23 12:21 Pulse Ox 94 01/11/23 12:21 O2 Del Method Room Air 01/11/23 12:21 BMI result Body Mass Index 29.8 <DANA Oconnell - Last Filed: 01/11/23 11:46> Vital Signs: Last Vital Signs Temp 98.0 F 01/11/23 12:21 Pulse 94 01/11/23 12:21 Resp 20 01/11/23 12:21 BP 118/63 01/11/23 12:21 Pulse Ox 94 01/11/23 12:21 O2 Del Method Room Air 01/11/23 12:21 BMI result Body Mass Index 29.8 <DANA Saab - Last Filed: 01/11/23 13:59> Appearance: Alert. Oriented X3. No acute distress. Head: normocephalic, atraumatic. Eyes: Pupils equal, round and reactive to light. ENT: Pharynx normal. No tonsillar swelling or exudate. Neck: Normal inspection. Neck supple. CVS: Normal heart rate and rhythm. Pulses normal. Respiratory: No respiratory distress. Breath sounds with expiratory wheezes throughout, prolonged expiratory phase, able to speak in complete sentences Abdomen: Soft and nontender. +BS x4 Skin: Skin warm and dry. Normal skin color. Normal skin turgor. No rashes. Extremities: No lower extremity edema. No joint swelling. Neuro/psych: Oriented X 3. No motor deficit. No sensory deficit. CN II-XII intact. Normal speech and cognition. <DANA Saab - Last Filed: 01/11/23 13:59> Course Course Course Narrative: This is an RME: Additional HPI, ROS, PE not included below will be deferred to primary provider. 52 year old female presents w/ SOB and wheezing X 2 days. Audible wheezing 92-94% on RA labored breathing Plan- xray, labs, mag, solumedrol, albuterol, covid <DANA Oconnell - Last Filed: 01/11/23 11:46> Medications Administered Discontinued Medications Generic Name Dose Route Start Last Admin Trade Name Freq PRN Reason Stop Dose Admin Albuterol Sulfate 10 mg 01/11/23 11:43 01/11/23 11:59 Albuterol Sulfate (0.083%) 2.5 Mg/3 Ml Vial.Neb INHALE 01/11/23 11:44 10 mg ONCE ONE Administration Magnesium Sulfate 2 gm in 50 mls @ 25 mls/hr 01/11/23 11:43 01/11/23 12:54 Magnesium Sulfate/H2o IV 01/11/23 13:42 Infused ONCE ONE Infusion Methylprednisolone Sodium Succinate 125 mg 01/11/23 11:43 01/11/23 12:07 Methylprednisolone Sod Succ 125 Mg/2 Ml Vial IVPUSH 01/11/23 11:44 125 mg ONCE ONE Administration <DANA Oconnell - Last Filed: 01/11/23 11:46> Medications Administered Discontinued Medications Generic Name Dose Route Start Last Admin Trade Name Leonid PRN Reason Stop Dose Admin Albuterol Sulfate 10 mg 01/11/23 11:43 01/11/23 11:59 Albuterol Sulfate (0.083%) 2.5 Mg/3 Ml Vial.Neb INHALE 01/11/23 11:44 10 mg ONCE ONE Administration Magnesium Sulfate 2 gm in 50 mls @ 25 mls/hr 01/11/23 11:43 01/11/23 12:54 Magnesium Sulfate/H2o IV 01/11/23 13:42 Infused ONCE ONE Infusion Methylprednisolone Sodium Succinate 125 mg 01/11/23 11:43 01/11/23 12:07 Methylprednisolone Sod Succ 125 Mg/2 Ml Vial IVPUSH 01/11/23 11:44 125 mg ONCE ONE Administration <DANA Saab - Last Filed: 01/11/23 13:59> Medical Decision Making Medical Decision Making MDM Narrative: 52 yo female with history of asthma, tracheomalacia, TEO, diabetes, ADHD, anxiety/depression, former ETOH abuse on current Antabuse and history of MRSA PNA presenting with 2.5 days of SOB and wheezing after known allergen exposure. Not hypoxic but significantly wheezy and tight on arrival. She was given 2 gm IV mg++, IV solumedrol and 10 mg nebulized albuterol. CXR is clear. upon reevaluation patient is significantly improved. She continues to saturate well and wheezing is much improved. she feels better. she would like to go home. will d/c with prednisone taper. she will f/u with her director security risk management <DANA Saab - Last Filed: 01/11/23 13:59> Differential Diagnosis Differential Diagnoses: The differential diagnosis associated with the presentation includes <DANA Saab Last Filed: 01/11/23 13:59> acute asthma exacerbation, PNA, bronchitis, pneumonitis <DANA Saab Last Filed: 01/11/23 13:59> Lab Data [facility] Lab Attestation statement: I reviewed the patient's lab results. <DANA Saab - Last Filed: 01/11/23 13:59> Result Diagrams: 01/11/23 11:52 01/11/23 11:52 <DANA Oconnell - Last Filed: 01/11/23 11:46> Labs: Lab Results 01/11/23 01/11/23 01/11/23 Range/Units 11:50 11:52 11:52 WBC 7.9 (4.8-10.8) X10*3/uL RBC 5.01 (4.20-5.50) X10*6/uL Hgb 15.2 (12.0-16.0) g/dl Hct 45.9 (37.0-47.0) % MCV 91.6 (80.0-98.0) fL MCH 30.3 (27.0-33.0) pg MCHC 33.1 (31.0-35.0) g/dl RDW 16.2 H (11.0-16.0) % Plt Count 286 D (160-400) X10*3/uL MPV 9.3 L (9.4-12.3) fL Immature Gran % (Auto) 0.3 (0.0-0.4) % Neut % (Auto) 52.1 (45-73) % Lymph % (Auto) 37.1 (20-40) % [place] % (Auto) 8.5 (2-11) % Eos % (Auto) 1.4 (0-4) % Baso % (Auto) 0.6 (0-2) % Lymph # (Auto) 2.9 (1.2-4.9) X10*3/uL [place] # (Auto) 0.7 (0.1-1.2) X10*3/uL Eos # (Auto) 0.1 (0.0-0.4) X10*3/uL Baso # (Auto) 0.1 (0.0-0.2) X10*3/uL Abs Immat Gran (auto) 0.02 (0.00-0.03) X10*3/uL Absolute Neuts (auto) 4.1 (2.0-8.3) x10*3/uL Absolute Nucleated RBC 0.000 (0.0-0.012) X10*3/uL Nucleated RBC % (auto) 0.0 (0.0-0.2) /100WBC Sodium 141 (135-145) mmol/L Potassium 3.5 (3.3-5.1) mmol/L Chloride 105 (96-108) mmol/L Carbon Dioxide 26 (22-29) mmol/L Anion Gap 14 (12-20) BUN 5 L (9-16) mg/dL Creatinine 0.73 (0.5-1.4) mg/dL Estim Creat Clear Calc 81.6 Estimated GFR > 60 Random Glucose 173 H (60-115) mg/dL Calcium 9.3 (8.4-10.2) mg/dL Magnesium 1.9 (1.6-2.6) mg/dL Total Bilirubin 0.8 (0.0-1.0) mg/dL AST 36 H (5-31) U/L ALT 55 H (0-31) U/L Alkaline Phosphatase 95 (39-117) U/L Total Protein 6.8 (6.5-8.0) g/dL Albumin 4.0 (3.5-5.0) g/dL COVID-19 ([facility]) Negative (Negative) COVID-19 Clin Com See Note <DANA Oconnell - Last Filed: 01/11/23 11:46> Lab Results 01/11/23 01/11/23 01/11/23 Range/Units 11:50 11:52 11:52 WBC 7.9 (4.8-10.8) X10*3/uL RBC 5.01 (4.20-5.50) X10*6/uL Hgb 15.2 (12.0-16.0) g/dl Hct 45.9 (37.0-47.0) % MCV 91.6 (80.0-98.0) fL MCH 30.3 (27.0-33.0) pg MCHC 33.1 (31.0-35.0) g/dl RDW 16.2 H (11.0-16.0) % Plt Count 286 D (160-400) X10*3/uL MPV 9.3 L (9.4-12.3) fL Immature Gran % (Auto) 0.3 (0.0-0.4) % Neut % (Auto) 52.1 (45-73) % Lymph % (Auto) 37.1 (20-40) % [place] % (Auto) 8.5 (2-11) % Eos % (Auto) 1.4 (0-4) % Baso % (Auto) 0.6 (0-2) % Lymph # (Auto) 2.9 (1.2-4.9) X10*3/uL [place] # (Auto) 0.7 (0.1-1.2) X10*3/uL Eos # (Auto) 0.1 (0.0-0.4) X10*3/uL Baso # (Auto) 0.1 (0.0-0.2) X10*3/uL Abs Immat Gran (auto) 0.02 (0.00-0.03) X10*3/uL Absolute Neuts (auto) 4.1 (2.0-8.3) x10*3/uL Absolute Nucleated RBC 0.000 (0.0-0.012) X10*3/uL Nucleated RBC % (auto) 0.0 (0.0-0.2) /100WBC Sodium 141 (135-145) mmol/L Potassium 3.5 (3.3-5.1) mmol/L Chloride 105 (96-108) mmol/L Carbon Dioxide 26 (22-29) mmol/L Anion Gap 14 (12-20) BUN 5 L (9-16) mg/dL Creatinine 0.73 (0.5-1.4) mg/dL Estim Creat Clear Calc 81.6 Estimated GFR > 60 Random Glucose 173 H (60-115) mg/dL Calcium 9.3 (8.4-10.2) mg/dL Magnesium 1.9 (1.6-2.6) mg/dL Total Bilirubin 0.8 (0.0-1.0) mg/dL AST 36 H (5-31) U/L ALT 55 H (0-31) U/L Alkaline Phosphatase 95 (39-117) U/L Total Protein 6.8 (6.5-8.0) g/dL Albumin 4.0 (3.5-5.0) g/dL COVID-19 ([facility]) Negative (Negative) COVID-19 Clin Com See Note <DANA Saab - Last Filed: 01/11/23 13:59> Independent Interpretation I performed an independent interpretation of an: Plain X-Ray <DANA Saab - Last Filed: 01/11/23 13:59> Interpretation: cxr with clear lungs, no focal infiltrate <DANA Saab - Last Filed: 01/11/23 13:59> Radiology Impression Discussion of test interpretation with radiology: I have reviewed the radiologist's reading. <DANA Saab - Last Filed: 01/11/23 13:59> Radiologist Impression: EXAMINATION: XR CHEST CLINICAL INFORMATION: Difficulty breathing and shortness of breath COMPARISON: None available. TECHNIQUE: Frontal view of the chest was obtained. FINDINGS: Lungs grossly clear. Heart and pulmonary vessels normal. No congestive failure. XR/XR chest 1V IMPRESSION: No active disease. <DANA Saab - Last Filed: 01/11/23 13:59> External Record Review External record reviewed: Inpatient record, Office record, Outpatient record, Prior outpatient labs and Prior outpatient radiology <DANA Saab - Last Filed: 01/11/23 13:59> Prescription Management I considered prescription management with: Antibiotic and Other (prednisone taper) <DANA aSab - Last Filed: 01/11/23 13:59> Chronic Conditions Patient?s care impacted by: Other (severe persistent asthma) <DANA Saab - Last Filed: 01/11/23 13:59> Critical Care Time Critical Care Time Critical Care Time: Yes <DANA Saab - Last Filed: 01/11/23 13:59> Total Critical Care Time: 35 <DAAN Saab - Last Filed: 01/11/23 13:59> Attestation: I have personally provided critical care time exclusive of time spent on separately billable procedures. Time includes review of lab data, radiology results,frequent beside reassessment of cardiopulmonary status, and monitoring for potential decompensation. Intervention performed as documented. <DANA Fountain - Last Filed: 01/11/23 13:59> Discharge Plan Discharge Clinical Impression: Asthma with exacerbation <DANA Oconnell - Last Filed: 01/11/23 11:46> Patient Disposition: Home, Self-Care <DANA Oconnell - Last Filed: 01/11/23 11:46> Instructions: Asthma (ED) <DANA Oconnell - Last Filed: 01/11/23 11:46> Additional Instructions: Your chest x-ray and labs were unremarkable. Take the prescribed prednisone taper as directed Use your nebulizers at home every 4 hours as needed Avoid seasonal allergens as able. Follow up with your director security risk management If you develop new or worsening symptoms call 911 or come back to the ER for further evaluation. <DANA Oconnell - Last Filed: 01/11/23 11:46> Prescriptions: New prednisone 10 mg tablets,dose pack See Taper PO DIRECTED Qty: 48 0RF Taper: Prednisone 40 mg daily for 3 Days and 0 Hour 30 mg daily for 3 Days and 0 Hour 20 mg daily for 3 Days and 0 Hour 10 mg daily for 3 Days and 0 Hour No Action ipratropium-albuterol 0.5 mg-3 mg(2.5 mg base)/3 mL solution for nebulization 3 ml inhalation Q4-6H PRN (Reason: shortness of breath or wheezing) Qty: 180 0RF dextroamphetamine-amphetamine 20 mg tablet 20 mg PO BID@0700,1600 (DME) blood-glucose meter [Accu-Chek Guide Glucose Meter] [facility] See Rx Instructions .ROUTE .MEDSUPPLY Qty: 1 0RF Rx Instructions: As directed (DME) Accu-Chek Guide test strips Strip See Rx Instructions .ROUTE .MEDSUPPLY Qty: 100 0RF Rx Instructions: As directed (DME) lancets [Accu-Chek Multiclix Lancet] Mis See Rx Instructions .ROUTE .MEDSUPPLY Qty: 100 0RF Rx Instructions: As directed multivitamin Tablet 1 tab PO DAILY levalbuterol tartrate [Xopenex HFA] 45 mcg/actuation HFA aerosol inhaler 1 - 2 puff inhalation Q4H PRN (Reason: Wheezing) lisinopril 20 mg tablet 1 tab PO DAILY acetaminophen [Tylenol Arthritis Pain] 650 mg tablet extended release 650 mg PO Q12H PRN (Reason: Pain) ipratropium-albuterol 0.5 mg-3 mg(2.5 mg base)/3 mL Solution For Nebulization 3 ml inhalation Q4-6H PRN (Reason: shortness of breath or wheezing) Qty: 180 0RF prednisone 20 mg tablet 20 mg PO DAILY Qty: 3 0RF baclofen 10 mg tablet 10 mg PO BID PRN (Reason: muscle spasm) 30 Days Qty: 60 2RF metformin 1,000 mg tablet 1,000 mg PO BIDWMEAL 30 Days Qty: 60 3RF budesonide-formoterol [Symbicort] 160-4.5 mcg/actuation HFA aerosol inhaler 2 puff inhalation BID disulfiram 250 mg tablet 250 mg PO DAILY 30 Days Qty: 30 2RF <DANA Oconnell - Last Filed: 01/11/23 11:46>
[2023-01-11 11:57] LABS: MANUAL DIFF FLAG NO
[2023-01-11 11:59] VITALS: RESP 18; O2SAT 96
[2023-01-11 11:59] LABS: Basophils Absolute Auto 0.1 X10*3/uL (0.0-0.2); Basophils Percent Auto 0.6 % (0-2); Eosinophils Absolute Auto 0.1 X10*3/uL (0.0-0.4); Eosinophils Percent Auto 1.4 % (0-4); Hematocrit 45.9 % (37.0-47.0); Hemoglobin 15.2 g/dl (12.0-16.0); Imm Gran Abs Auto 0.02 X10*3/uL (0.00-0.03); Imm Gran Pct Auto 0.3 % (0.0-0.4); Lymphocytes Absolute Auto 2.9 X10*3/uL (1.2-4.9); Lymphocytes Percent Auto 37.1 % (20-40); Mean Corpuscular HGB Conc 33.1 g/dl (31.0-35.0); Mean Corpuscular Hemoglobin 30.3 pg (27.0-33.0); Mean Corpuscular Volume 91.6 fL (80.0-98.0); Mean Platelet Volume 9.3 fL (9.4-12.3); Monocytes Absolute Auto 0.7 X10*3/uL (0.1-1.2); Monocytes Percent Auto 8.5 % (2-11); Neutrophils Absolute Auto 4.1 x10*3/uL (2.0-8.3); Neutrophils Percent Auto 52.1 % (45-73); Platelet Count 286 X10*3/uL (160-400); Red Blood Count 5.01 X10*6/uL (4.20-5.50); Red Cell Distribution Width 16.2 % (11.0-16.0); White Blood Count 7.9 X10*3/uL (4.8-10.8)
[2023-01-11] MEDS: Albuterol Sulfate (0.083%) 2.5 MG/3 ML VIAL.NEB 10 MG INHALE (11:59)
[2023-01-11] MEDS: methylPREDNISolone Sod Succ 125 MG/2 ML VIAL IVPUSH (12:07)
[2023-01-11] MEDS: Magnesium Sulfate/H2O 2 GM/50 ML PIGGYBACK IV (12:08)
[2023-01-11 12:17] LABS: COVID-19 Test Negative (Negative); IDNOW Serial# BCCEAD1C
[2023-01-11 12:18] LABS: Alanine Aminotransferase 55 U/L (0-31); Alkaline Phosphatase 95 U/L (39-117); Anion Gap 14 (12-20); Aspartate Amino Transferase 36 U/L (5-31); Bilirubin Total 0.8 mg/dL (0.0-1.0); Blood Urea Nitrogen 5 mg/dL (9-16); Calcium 9.3 mg/dL (8.4-10.2); Carbon Dioxide 26 mmol/L (22-29); Chloride 105 mmol/L (96-108); Creatinine Clr Calc Pharmacy 81.6; Estimated Glomerular Filt Rate > 60; Glucose Random 173 mg/dL (60-115); Magnesium 1.9 mg/dL (1.6-2.6); Potassium 3.5 mmol/L (3.3-5.1); Sodium 141 mmol/L (135-145); Total Protein 6.8 g/dL (6.5-8.0)
[2023-01-11 12:21] VITALS: BP 118/63; PULSE 94; RESP 20; TEMP 36.7; O2SAT 94
== END 2023-01-11 13:57 | disposition home or self-care (01) ==
PROVIDERS: Physician Assistant; Emergency Provider Emergency Medicine
DX: J45.901 Unspecified asthma with (acute) exacerbation (principal); R06.02 Shortness of breath; F17.210 Nicotine dependence, cigarettes, uncomplicated; Z20.822 Contact with and (suspected) exposure to COVID-19; Z20.828 Contact with and (suspected) exposure to other viral communicable diseases; Z79.899 Other long term (current) drug therapy; Z71.6 Tobacco abuse counseling
CPT/HCPCS: 71045; 80053; 83735; 85025; 87635; 94640; 96365; 96375; 99284; J2930; J3475

== ENCOUNTER 2023-02-11 09:08 | Emergency (ER) | payer BC, MEDICARE, SELFPAY ==
--- NOTE | ~2023-02-11 | XR_ITS ---
EXAMINATION: XR CHEST CLINICAL INFORMATION: Cough. COMPARISON: Chest 01/11/2023 TECHNIQUE: 2 views of the chest were obtained. FINDINGS: The lungs are well-expanded with platelike atelectasis in the lingula. Rest of the lungs are clear. The heart size and pulmonary vascularity is normal. No gross bony abnormality seen. XR/XR chest 2V IMPRESSION: Platelike atelectasis in the lingula.
[2023-02-11 09:11] VITALS: BP 130/100; PULSE 99; RESP 18; TEMP 36.8; O2SAT 99; BMI 30.3
--- NOTE | 2023-02-11 09:32 | ED_ITS ---
HPI - Eye Problem General Chief complaint: Eye Problems Stated complaint: pink eye Time Seen by Provider: 02/11/23 09:26 Source: patient and RN notes reviewed Mode of arrival: ambulatory Limitations: no limitations History of Present Illness HPI Narrative: This is a 52-year-old female, with a past medical history of severe persistent asthma, tracheomalacia, TEO, diabetes, ADHD, anxiety and depression, former ETOH abuse on antabuse and history of MRSA pneumonia, who presents the emergency department for evaluation of bilateral eye itching and redness x 3 days. Patient reports that she noticed that her eyes were slightly irritated and itchy on and noticed throughout the day the itching became worse and worse and has had purulent drainage from her bilateral eyes. She states that the discharge is very sticky and in the morning her eyes are crusted shut. Patient denies any eye pain or visual changes. She has tried using [id number] eyedrops without any relief. Patient reports that she has also been coughing up bright colored sputum since . She denies any fevers, chills, nausea, vomiting, diarrhea, abdominal pain, chest pain, shortness of breath, or wheezing. MD chief complaint: eye redness Onset (ago): day(s) Onset description: gradual Duration: constant and progressively worsening Location: both eyes Eye Symptoms: burning, redness, itching and discharge Mechanism: none If Pain, Quality: burning Context: recent URI Associated symptoms: none Treatments Prior to Arrival: OTC eye drops Related Data Home Medications Medication Instructions Recorded Confirmed dextroamphetamine-amphetamine 20 20 mg PO BID@0700,1600 07/26/20 04/20/22 mg tablet multivitamin 1 tab PO DAILY 11/05/20 04/20/22 budesonide-formoterol HFA 160 2 puff inhalation BID 12/22/21 04/20/22 mcg-4.5 mcg/actuation aerosol inhaler (Symbicort) acetaminophen 650 mg 650 mg PO Q12H PRN Pain 04/20/22 04/20/22 tablet,extended release (Tylenol Arthritis Pain) levalbuterol tartrate 45 1 - 2 puff inhalation Q4H PRN 04/20/22 04/20/22 mcg/actuation aerosol inhaler Wheezing (Xopenex HFA) lisinopril 20 mg tablet 1 tab PO DAILY 04/20/22 04/20/22 Previous Rx's Medication Instructions Recorded blood sugar diagnostic (Accu-Chek #100 ea 10/11/20 Guide test strips) blood-glucose meter (Accu-Chek #1 ea 10/11/20 Guide Glucose Meter) lancets (Accu-Chek Multiclix #100 ea 10/11/20 Lancet) ipratropium 0.5 mg-albuterol 3 mg 3 ml inhalation Q4-6H PRN 12/13/20 (2.5 mg base)/3 mL nebulization shortness of breath or wheezing soln #180 mL baclofen 10 mg tablet 10 mg PO BID PRN muscle spasm 30 01/13/22 days #60 tabs disulfiram 250 mg tablet 250 mg PO DAILY 30 days #30 tabs 02/02/22 metformin 1,000 mg tablet 1,000 mg PO BIDWMEAL 30 days #60 03/02/22 tabs ipratropium 0.5 mg-albuterol 3 mg 3 ml inhalation Q4-6H PRN 04/22/22 (2.5 mg base)/3 mL nebulization shortness of breath or wheezing soln #180 mL prednisone 20 mg tablet 20 mg PO DAILY #3 tabs 04/22/22 prednisone 10 mg tablets in a dose See Taper PO DIRECTED #48 ea 01/11/23 pack amoxicillin 875 mg-potassium 1 tab PO BID #14 tabs 02/11/23 clavulanate 125 mg tablet doxycycline hyclate 100 mg capsule 100 mg PO BID 5 days #10 caps 02/11/23 sulfacetamide sodium 10 % eye drops 1 drp ophthalmic (eye) Q4H 7 days 02/11/23 #15 mL Allergies Allergy/AdvReac Type Severity Reaction Status Date / Time hydromorphone [From DILAUDID] Allergy Severe SEIZURES Verified 04/20/22 17:41 oxycodone [OXYCODONE] Allergy Severe SEIZURES Verified 04/16/22 14:28 vancomycin Allergy Severe Rash Verified 04/16/22 14:28 gabapentin [GABAPENTIN] Allergy Intermediate MUSCLE ACHE Verified 04/16/22 14:28 albuterol Allergy Mild Trouble Verified 04/16/22 14:28 breathing;MDI use only bupropion [From WELLBUTRIN] Allergy Unknown SEIZURES Verified 04/16/22 14:28 phenytoin [Dilantin] Allergy Unknown Unknown Verified 04/16/22 14:28 Review of Systems Review of Systems: Constitutional: No Weight loss, No Fever, No Chills, No Night Sweats, No Fatigue, No Malaise ENT/Mouth: No Hearing loss, No Ear Pain, No Nasal Congestion, No Sinus Pain, No Hoarseness, No sore throat, No Rhinorrhea, No Swallowing Difficulty Eyes: No Eye Pain, No Swelling, + Redness, No Foreign Body, + Discharge, No Vision Changes Cardiovascular: No Chest Pain, No SOB, No Dyspnea on Exertion, No Orthopnea, No Edema, No Palpitations Respiratory: + Cough, + Sputum, No Wheezing, No Smoke Exposure, No Dyspnea Gastrointestinal: No Nausea, No Vomiting, No Diarrhea, No Constipation, No Abdominal pain, No Hematochezia, No Melena Genitourinary: No irregular bleeding, No Dysuria, No Urinary Frequency, No Hematuria, No Urinary Incontinence/retention, No Urgency, No Flank Pain, No Urinary Flow Changes, No Hesitancy Musculoskeletal: No joint pain, No Myalgias, No Joint Swelling Skin: No Skin Lesions, No rash Neuro: No Weakness, No Numbness, No Paresthesias, No Loss of Consciousness, No Dizziness, No Headache Psych: No Anxiety/Panic, No Depression, No SI/HI/AH/VH, No Social Issues, Heme/Lymph: No Bruising, No Bleeding,No Lymphadenopathy Endocrine: No Polyuria, No Polydipsia, No Temperature Intolerance Yes all other systems are reviewed and are negative Constitutional: Constitutional: Reports as per [facility] Past Medical History Medical History ADHD Alcohol abuse Anxiety Asthma Asthma-COPD overlap syndrome Cocaine abuse COPD (chronic obstructive pulmonary disease) DMII (diabetes mellitus, type 2) Epilepsy Fibromyalgia History of suicide attempt HTN (hypertension) Obese Sleep apnea Tracheomalacia Surgical History History of cholecystectomy Previous section Family History Family History Father No problems noted. Mother Cervical cancer Mental health disorder Social History Social History Household Members: Spouse, Family and Children Housing: House Are you a primary critical care paramedic to a significant other at home: Yes Do you presently have visiting nurse or other home services: No Alcohol intake: former Patient Tobacco Use Status: Former Tobacco user Tobacco use type: Cigarette Cigarettes Per Day: 25 Years Smoked: 20 e-Cigarette/Vaping Use: Currently Using Second Hand Smoke Exposure: No Substance Use Type: Marijuana Advance Directives: Yes Advance Directives on File: Yes Advance Directives Date on File: 11/05/20 service: No Current occupational status: disabled Cognitive needs: Yes (Pt would like a cane ) Hearing needs: Yes (?hearing loss mostly from right ear.) Vision needs: Yes (Pt was seen 6 months and exam was good just need readig glasses.) Physical Exam Vital Signs: Vital Signs: Last Vital Signs Temp 97.8 F 02/11/23 11:05 Pulse 92 02/11/23 11:05 Resp 16 02/11/23 11:05 BP 142/90 H 02/11/23 11:05 Pulse Ox 98 02/11/23 11:05 O2 Del Method Room Air 02/11/23 11:05 BMI result Body Mass Index 30.3 Const: General: cooperative, comfortable and no acute distress Orientation/consciousness: patient oriented x3 Limitations: no limitations HEENT: Head: Yes normal to inspection, Yes normocephalic and Yes atraumatic Ears: hearing grossly normal bilaterally General nose exam: Normal external nose present Face and sinus: Yes normal facial exam Mouth: Normal oral and palatal mucosa present, oropharynx normal and moist mucous membranes Throat: Yes posterior oropharynx normal Eyes: Other: Bilateral conjunctiva is injected, with scant discharge. No periorbital swelling, erythema, or ecchymosis. Visual romero are intact. No pain with extraocular movements. General: appearance normal, both eyes and all related structures Eyelids: Yes eyelids normal Conjunctivae: conjunctivae normal Sclerae: sclerae normal Pupils: Equal, round and reactive pupils present EOM: EOMs intact bilaterally Neck: Neck: Yes normal visual inspection, Yes full ROM and Yes no lymphadenopathy Lymphatic: no lymphadenopathy noted Chest: Chest palpation & inspection: normal inspection of the chest Resp: Other: Course lung sounds in the left lower lobe. No wheezes. All other lung romero unremarkable. Effort & Inspection: normal respiratory effort and able to speak in complete sentences Cardio: Rate: regular rate Rhythm: regular rhythm Heart sounds: S1 normal heart sound present and S2 normal heart sound present GI: Inspection: Yes normal to inspection Skin: General skin exam: no rashes or lesions noted Trauma: no lacerations or abrasions Wounds: no wounds Neuro: General: patient oriented x3 and moves all extremities Cranial nerves: Yes Equal, round and reactive pupils present Extrem: General: Yes normal to inspection Right upper extremity: normal to inspection Left upper extremity: normal to inspection Right lower extremity: normal to inspection Left lower extremity: normal to inspection Course Reevaluation(s) Reevaluation #1: Chest x-ray reviewed as normal. Because of history of MRSA pneumonia, will cover with oral antibiotics. I symptoms consistent with conjunctivitis. Patient given return precautions. Patient understands and agrees with plan. Advised patient to follow-up with her primary care physician next week for improvement of her symptoms. Stable for discharge. Time: 11:38 Medical Decision Making Medical Decision Making MDM Narrative: 52-year-old female, with a past medical history of severe persistent asthma, tracheomalacia, TEO, diabetes, ADHD, anxiety and depression, former ETOH abuse on antabuse and history of MRSA pneumonia who presents the emergency department for bilateral eye redness, itchiness and discharge since . Patient reports that she has also had a productive cough since . Denies any fevers, chills, shortness of breath, wheezing. Patient's vital signs are within normal limits. Given past medical history his pneumonia is to a chest x-ray this time. Plan: Visual acuity and chest x-ray Differential Diagnosis Differential Diagnoses: The differential diagnosis associated with the presentation includes Conjunctivitis, allergic rhinitis, iritis, periorbital cellulitis- less,likely upper respiratory infection, pneumonia, Admission/Observation Consideration of admission/observation: Escalation of care including admission/observation considered Radiology Impression Discussion of test interpretation with radiology: I have reviewed the [facility] ologist's reading. External Record Review External record reviewed: Inpatient record, Office record, Outpatient record, Prior outpatient labs, Prior outpatient radiology, Primary care record and Outside ED record Chronic Conditions Patient?s care impacted by: Diabetes Discharge Plan Discharge Clinical Impression: Conjunctivitis, Acute upper respiratory infection Instructions: Upper Respiratory Infection (ED), Conjunctivitis (ED) Additional Instructions: Please take prescribed antibiotics as directed. Drink plenty of fluids get plenty of rest. Wash her hands frequently as conjunctivitis is very contagious. Any new or worsening symptoms occur including but not limited to fevers, chills, worsening cough, shortness of breath, changes in vision, swelling around your eyes or chest pain, please return for re-evaluation. Follow-up with your primary care physician. Prescriptions: New sulfacetamide sodium 10 % drops 1 drp ophthalmic (eye) Q4H 7 Days Qty: 15 0RF doxycycline hyclate 100 mg capsule 100 mg PO BID 5 Days Qty: 10 0RF amoxicillin-pot clavulanate 875-125 mg tablet 1 tab PO BID Qty: 14 0RF No Action ipratropium-albuterol 0.5 mg-3 mg(2.5 mg base)/3 mL solution for nebulization 3 ml inhalation Q4-6H PRN (Reason: shortness of breath or wheezing) Qty: 180 0RF dextroamphetamine-amphetamine 20 mg tablet 20 mg PO BID@0700,1600 (DME) blood-glucose meter [Accu-Chek Guide Glucose Meter] Misc See Rx Instructions .ROUTE .MEDSUPPLY Qty: 1 0RF Rx Instructions: As directed (DME) Accu-Chek Guide test strips Strip See Rx Instructions .ROUTE .MEDSUPPLY Qty: 100 0RF Rx Instructions: As directed ([facility]) lancets [Accu-Chek Multiclix Lancet] Misc See Rx Instructions .ROUTE .MEDSUPPLY Qty: 100 0RF Rx Instructions: As directed multivitamin Tablet 1 tab PO DAILY levalbuterol tartrate [Xopenex HFA] 45 mcg/actuation HFA aerosol inhaler 1 - 2 puff inhalation Q4H PRN (Reason: Wheezing) lisinopril 20 mg tablet 1 tab PO DAILY acetaminophen [Tylenol Arthritis Pain] 650 mg tablet extended release 650 mg PO Q12H PRN (Reason: Pain) ipratropium-albuterol 0.5 mg-3 mg(2.5 mg base)/3 mL Solution For Nebulization 3 ml inhalation Q4-6H PRN (Reason: shortness of breath or wheezing) Qty: 180 0RF prednisone 20 mg tablet 20 mg PO DAILY Qty: 3 0RF prednisone 10 mg tablets,dose pack See Taper PO DIRECTED Qty: 48 0RF Taper: Prednisone 40 mg daily for 3 Days and 0 Hour 30 mg daily for 3 Days and 0 Hour 20 mg daily for 3 Days and 0 Hour 10 mg daily for 3 Days and 0 Hour baclofen 10 mg tablet 10 mg PO BID PRN (Reason: muscle spasm) 30 Days Qty: 60 2RF metformin 1,000 mg tablet 1,000 mg PO BIDWMEAL 30 Days Qty: 60 3RF budesonide-formoterol [Symbicort] 160-4.5 mcg/actuation HFA aerosol inhaler 2 puff inhalation BID disulfiram 250 mg tablet 250 mg PO DAILY 30 Days Qty: 30 2RF
[2023-02-11 11:05] VITALS: BP 142/90; PULSE 92; RESP 16; TEMP 36.6; O2SAT 98
== END 2023-02-11 11:41 | disposition home or self-care (01) ==
PROVIDERS: Emergency Provider Internal Medicine; PCP Internal Medicine
DX: H10.9 Unspecified conjunctivitis (principal); J06.9 Acute upper respiratory infection, unspecified; R05.9 Cough, unspecified; J45.50 Severe persistent asthma, uncomplicated
CPT/HCPCS: 71046; 99283

== ENCOUNTER 2023-03-20 09:56 | Inpatient (IN) | payer BC, MEDICARE, SELFPAY ==
[2023-03-20] VITALS (9 sets, daily range): BP systolic 110–141; BP diastolic 62–94; PULSE 84–101; RESP 18–22; TEMP 36.2–36.9; O2SAT 92–99; BMI 29.3; BMI 31.0
--- NOTE | 2023-03-20 11:36 | ED.ASTHMA ---
HPI - Asthma General Chief Complaint: Asthma Stated Complaint: Asthma Time Seen by Provider: 03/20/23 11:36 Source: patient, RN notes reviewed and old records reviewed Mode of arrival: ambulatory History of Present Illness HPI Narrative: 52-year-old female with a past medical history of asthma, ETOH abuse, ADHD, diabetes, MRSA, COPD, fibromyalgia, presenting to the ED complaining of asthma exacerbation with productive cough, SOB, chest tightness, and wheezing worsening x2 weeks. Admits to using inhalers at home without relief. Denies fever/chills, pedal edema, recent travel, history of clots, abdominal pain MD complaint: asthma attack , shortness of breath and wheezing Onset (ago): week(s) Related Data Home Medications Medication Instructions Recorded Confirmed dextroamphetamine-amphetamine 20 10 mg PO BID@0700,1600 07/26/20 03/20/23 mg tablet multivitamin 1 tab PO DAILY 11/05/20 03/20/23 levalbuterol tartrate 45 1 - 2 puff inhalation Q4H PRN 04/20/22 03/20/23 mcg/actuation aerosol inhaler Wheezing (Xopenex HFA) lisinopril 20 mg tablet 1 tab PO DAILY 04/20/22 03/20/23 clonidine HCl 0.1 mg tablet 0.1 mg PO BID 03/20/23 03/20/23 dextroamphetamine-amphetamine ER 1 cap PO QAM 03/20/23 03/20/23 20 mg 24hr capsule,extend release dulaglutide 1.5 mg/0.5 mL 1.5 mg subcut WE 03/20/23 03/20/23 subcutaneous pen injector (Trulicity) prazosin 1 mg capsule 1 mg PO BEDTIME nightmares 03/20/23 03/20/23 risperidone 1 mg tablet 1 mg PO BEDTIME 03/20/23 03/20/23 Previous Rx's Medication Instructions Recorded blood sugar diagnostic (Accu-Chek #100 ea 10/11/20 Guide test strips) blood-glucose meter (Accu-Chek #1 ea 10/11/20 Guide Glucose Meter) lancets (Accu-Chek Multiclix #100 ea 10/11/20 Lancet) ipratropium 0.5 mg-albuterol 3 mg 3 ml inhalation Q4-6H PRN 03/28/21 (2.5 mg base)/3 mL nebulization shortness of breath or wheezing soln #180 mL Allergies Allergy/AdvReac Type Severity Reaction Status Date / Time hydromorphone [From DILAUDID] Allergy Severe SEIZURES Verified 04/20/22 17:41 oxycodone [OXYCODONE] Allergy Severe SEIZURES Verified 04/16/22 14:28 vancomycin Allergy Severe Rash Verified 04/16/22 14:28 gabapentin [GABAPENTIN] Allergy Intermediate MUSCLE ACHE Verified 04/16/22 14:28 albuterol Allergy Mild Trouble Verified 04/16/22 14:28 breathing;MDI use only bupropion [From WELLBUTRIN] Allergy Unknown SEIZURES Verified 04/16/22 14:28 phenytoin [Dilantin] Allergy Unknown Unknown Verified 04/16/22 14:28 Review of Systems Review of Systems: Constitutional: No Fever, No Chills, No Fatigue, No Malaise ENT/Mouth: No Hearing loss, No Ear Pain, No sore throat, No Rhinorrhea, No Swallowing Difficulty Eyes: No Eye Pain, No Swelling, No Vision Changes Cardiovascular: + Chest Pain, + SOB, No Dyspnea on Exertion, No Orthopnea, No Edema, No Palpitations Respiratory: + Cough, + Sputum, + Wheezing, No Smoke Exposure, No Dyspnea Gastrointestinal: No Nausea, No Vomiting, No Diarrhea, No Constipation, No Abdominal pain Genitourinary: No Dysuria, No Urinary Frequency, No Hematuria, No Flank Pain, No Urinary Flow Changes, No Hesitancy Musculoskeletal: No joint pain, No Myalgias, No Joint Swelling Skin: No Skin Lesions, No rash Neuro: No Weakness, No Dizziness, No Headache Yes all other systems are reviewed and are negative Constitutional: Constitutional: Reports as per [facility] Past Medical History Attestation statement: The following information was validated with the patient. Source: old records reviewed Medical History ADHD Alcohol abuse Anxiety Asthma Asthma-COPD overlap syndrome Cocaine abuse COPD (chronic obstructive pulmonary disease) DMII (diabetes mellitus, type 2) Epilepsy Fibromyalgia History of suicide attempt HTN (hypertension) Obese Sleep apnea Tracheomalacia Surgical History History of cholecystectomy Previous section Family History Family History Father No problems noted. Mother Cervical cancer Mental health disorder Social History Social History Household Members: Spouse, Family and Children Housing: House Are you a primary managed care specialist to a significant other at home: Yes Do you presently have visiting nurse or other home services: No Alcohol intake: never Patient Tobacco Use Status: Former Tobacco user Tobacco use type: Cigarette Cigarettes Per Day: 25 Years Smoked: 20 Smoked in Last 30 Days: No e-Cigarette/Vaping Use: Currently Using Second Hand Smoke Exposure: No Use of substances other than those prescribed or required for medical reasons: Yes Substance Use Type: Marijuana Substance Use Frequency: Daily Advance Directives: Yes Advance Directives on File: Yes Advance Directives Date on File: 11/05/20 Patient : No service: No Current occupational status: disabled Cognitive needs: Yes (Pt would like a cane ) Hearing needs: Yes (?hearing loss mostly from right ear.) Vision needs: Yes (Pt was seen 6 months and exam was good just need readig glasses.) Physical Exam Vital Signs: Vital Signs: Last Vital Signs Temp 98.4 F 03/20/23 10:23 Pulse 86 03/20/23 12:55 Resp 21 H 03/20/23 12:55 BP 139/90 H 03/20/23 10:23 Pulse Ox 96 03/20/23 10:23 O2 Del Method Room Air 03/20/23 10:23 BMI result Body Mass Index 29.3 Const: General: cooperative, healthy appearing and no acute distress Orientation/consciousness: patient oriented x3 Limitations: no limitations HEENT: Head: Yes normal to inspection and Yes atraumatic Ears: hearing grossly normal bilaterally General nose exam: Normal external nose present Face and sinus: Yes normal facial exam Eyes: General: appearance normal, both eyes and all related structures EOM: EOMs intact bilaterally Neck: Neck: Yes normal visual inspection and Yes no meningeal signs Resp: Effort & Inspection: normal respiratory effort and no respiratory distress Auscultation: wheezes expiratory wheezes, inspiratory wheezes and throughout Cardio: Rate: regular rate Heart sounds: S1 normal heart sound present and S2 normal heart sound present GI: Inspection: Yes normal to inspection Palpation (GI): Soft to palpation, nontender, no guarding and not rigid Skin: Rashes: no rashes Wounds: no wounds Neuro: General: patient oriented x3, tone normal and no meningeal signs Gait exam (Neuro): Normal gait present Extrem: General: Yes normal to inspection, Yes no pedal edema and Yes no calf tenderness Course Course Course Narrative: -no leukocytosis. Labs otherwise reassuring/at patient's baseline. Troponin negative XR chest 1V IMPRESSION: No acute cardiopulmonary process. -1410--on re-evaluation patient still with diffuse expiratory wheeze. Plan to admit for further management -1438--patient admitted to hospitalist service for further management Medications Administered Discontinued Medications Generic Name Dose Route Start Last Admin Trade Name Freq PRN Reason Stop Dose Admin Levalbuterol HCl 3.75 mg/ 0 mg 03/20/23 11:21 03/20/23 11:28 Ipratropium [place] 0.5 mg INHALE 03/20/23 11:22 1.25 each ONCE ONE Administration Levalbuterol HCl 3.75 mg/ 0 mg 03/20/23 12:34 03/20/23 12:55 Ipratropium [place] 0.5 mg INHALE 03/20/23 12:35 4.25 each ONCE ONE Administration Magnesium Sulfate 2 gm in 50 mls @ 25 mls/hr 03/20/23 11:46 03/20/23 11:54 Magnesium Sulfate/H2o IV 03/20/23 13:45 25 mls/hr ONCE ONE Administration Methylprednisolone Sodium Succinate 125 mg 03/20/23 11:46 03/20/23 11:54 Methylprednisolone Sod Succ 125 Mg/2 Ml Vial IVPUSH 03/20/23 11:47 125 mg ONCE ONE Administration Ondansetron HCl 4 mg 03/20/23 11:35 03/20/23 11:46 Ondansetron Hcl 4 Mg/2 Ml Vial IVPUSH 03/20/23 11:36 4 mg ONCE ONE Administration Medical Decision Making Medical Decision Making [facility] Narrative: 52-year-old female with a past medical history of asthma, ETOH abuse, ADHD, diabetes, MRSA, COPD, fibromyalgia, presenting to the ED complaining of asthma exacerbation with productive cough, SOB, chest tightness, and wheezing worsening x2 weeks. On exam vital signs stable, NAD, audible inspiratory and expiratory wheezes noted. No appreciable pitting edema. Concern for asthma/COPD exacerbation vs pneumonia. Lower suspicion for ACS/PE or CHF. Low suspicion for severe sepsis. Plan: EKG, labs, CXR, COVID-19 testing, Xopenex/Atrovent DuoNeb, IV Solu-Medrol, IV magnesium, anticipate admission Please refer to course for remaining clinical decision making, interpretation of labs/imaging results, and discussions with consultants and/or family members. Differential Diagnosis Differential Diagnoses: The differential diagnosis associated with the presentation includes As above Admission/Observation Consideration of admission/observation: Escalation of care including admission/observation considered Consult Healthcare Provider Management of the patient was discussed with: Hospitalist Lab Data MDM Lab Attestation statement: I reviewed the patient's lab results. 03/20/23 11:51 03/20/23 11:51 Labs: Lab Results 03/20/23 03/20/23 03/20/23 Range/Units 11:51 11:51 11:51 WBC 9.7 (4.8-10.8) X10*3/uL RBC 4.47 (4.20-5.50) X10*6/uL Hgb 14.7 (12.0-16.0) g/dl Hct 43.0 (37.0-47.0) % MCV 96.2 (80.0-98.0) fL MCH 32.9 (27.0-33.0) pg MCHC 34.2 (31.0-35.0) g/dl RDW 16.3 H (11.0-16.0) % Plt Count 317 (160-400) X10*3/uL MPV 9.6 (9.4-12.3) fL Immature Gran % (Auto) 0.5 H (0.0-0.4) % Neut % (Auto) 55.7 (45-73) % Lymph % (Auto) 33.2 (20-40) % [place] % (Auto) 8.6 (2-11) % Eos % (Auto) 1.2 (0-4) % Baso % (Auto) 0.8 (0-2) % Lymph # (Auto) 3.2 (1.2-4.9) X10*3/uL [place] # (Auto) 0.8 (0.1-1.2) X10*3/uL Eos # (Auto) 0.1 (0.0-0.4) X10*3/uL Baso # (Auto) 0.1 (0.0-0.2) X10*3/uL Abs Immat Gran (auto) 0.05 H (0.00-0.03) X10*3/uL Absolute Neuts (auto) 5.4 (2.0-8.3) x10*3/uL Absolute Nucleated RBC 0.000 (0.0-0.012) X10*3/uL Nucleated RBC % (auto) 0.0 (0.0-0.2) /100WBC PT 9.9 L (10.0-13.1) SEC INR 0.9 (0.9-1.1) Sodium 143 (135-145) mmol/L Potassium 3.5 (3.3-5.1) mmol/L Chloride 108 (96-108) mmol/L Carbon Dioxide 24 (22-29) mmol/L Anion Gap 15 (12-20) BUN 10 (9-16) mg/dL Creatinine 0.65 (0.5-1.4) mg/dL Estim Creat Clear Calc 90.8 Estimated GFR > 60 Random Glucose 118 H (60-115) mg/dL Calcium 9.0 (8.4-10.2) mg/dL Total Bilirubin 0.6 (0.0-1.0) mg/dL Direct Bilirubin 0.1 (0.0-0.5) mg/dL AST 57 H (5-31) U/L ALT 53 H (0-31) U/L Alkaline Phosphatase 85 (39-117) U/L Troponin I High Sens (<3.5-17.0) ng/L Total Protein 7.1 (6.5-8.0) g/dL Albumin 3.8 (3.5-5.0) g/dL COVID-19 ([facility]) (Negative) COVID-19 Clin Com 03/20/23 03/20/23 Range/Units 11:51 11:52 WBC (4.8-10.8) X10*3/uL RBC (4.20-5.50) X10*6/uL Hgb (12.0-16.0) g/dl Hct (37.0-47.0) % MCV (80.0-98.0) fL MCH (27.0-33.0) pg MCHC (31.0-35.0) g/dl RDW (11.0-16.0) % Plt Count (160-400) X10*3/uL MPV (9.4-12.3) fL Immature Gran % (Auto) (0.0-0.4) % Neut % (Auto) (45-73) % Lymph % (Auto) (20-40) % [place] % (Auto) (2-11) % Eos % (Auto) (0-4) % Baso % (Auto) (0-2) % Lymph # (Auto) (1.2-4.9) X10*3/uL [place] # (Auto) (0.1-1.2) X10*3/uL Eos # (Auto) (0.0-0.4) X10*3/uL Baso # (Auto) (0.0-0.2) X10*3/uL Abs Immat Gran (auto) (0.00-0.03) X10*3/uL Absolute Neuts (auto) (2.0-8.3) x10*3/uL Absolute Nucleated RBC (0.0-0.012) X10*3/uL Nucleated RBC % (auto) (0.0-0.2) /100WBC PT (10.0-13.1) SEC INR (0.9-1.1) Sodium (135-145) mmol/L Potassium (3.3-5.1) mmol/L Chloride (96-108) mmol/L Carbon Dioxide (22-29) mmol/L Anion Gap (12-20) BUN (9-16) mg/dL Creatinine (0.5-1.4) mg/dL Estim Creat Clear Calc Estimated GFR Random Glucose (60-115) mg/dL Calcium (8.4-10.2) mg/dL Total Bilirubin (0.0-1.0) mg/dL Direct Bilirubin (0.0-0.5) mg/dL AST (5-31) U/L ALT (0-31) U/L Alkaline Phosphatase (39-117) U/L Troponin I High Sens < 2.7 (<3.5-17.0) ng/L Total Protein (6.5-8.0) g/dL Albumin (3.5-5.0) g/dL COVID-19 ([facility]) Negative (Negative) COVID-19 Clin Com See Note Independent Interpretation I performed an independent interpretation of an: EKG (EKG normal sinus rhythm at a rate of 84. IN interval 158. QTC 479. No significant change when compared to prior ) Radiology Impression Discussion of test interpretation with radiology: I have reviewed the radiologist's reading. External Record Review External record reviewed: Inpatient record, Office record, Outpatient record, Prior outpatient labs, Prior outpatient radiology, Primary care record and Outside ED record Tests considered The following testing was considered but not selected: As above Chronic Conditions Patient?s care impacted by: Other (Asthma, COPD) Social Determinants Patient?s care significantly limited by Social Determinants of Health including: Alcoholism and drug addiction in family Critical Care Time Critical Care Time Critical Care Time: Yes Total Critical Care Time: 40 Attestation: I have personally provided critical care time exclusive of time spent on separately billable procedures. Time includes review of lab data, radiology results, discussion with consultants, and monitoring for potential decompensation. Intervention performed as documented. Discharge Plan Discharge Clinical Impression: Acute exacerbation of COPD with asthma Patient Disposition: Admitted As Inpatient
--- NOTE | 2023-03-20 13:22 | PHA.MEDREC ---
Pharmacy Consult ? Medication Reconciliation Pharmacy has completed the medication reconciliation. Patient was excellent historian. She did state she stopped Symbicort due to it causing thrush regardless of rinsing afterwards. She also stated she stopped metformin as its been making her sick and only takes trulicity to manage her diabetes.
--- NOTE | 2023-03-20 15:10 | PM.IMHP ---
History of Present Illness Date of Service: 03/20/23 Attending physician on admission: Abdulaziz Fajardo Chief Complaint: sob, cough 52-year-old female with a past medical history of hypertension, hyperlipidemia, diabetes, COPD-not on home oxygen, history of MRSA infection, fibromyalgia, arthritis, anxiety, depression, TEO not on CPAP, and history etoh and cocaine abuse who is a former cigarette smoker with 20 pack year history currently vaping both nicotine and THC presented to the ED for evaluation of 2 weeks of worsening shortness of breath and cough. Pt states about 12 days about developed allergy like symptoms with rhinorrhea and PND. Has tracheomalacia and voice has become raspy. She has developed increase in cough frequency with increased sputum production, now white/yellow in color. She has been using her nebulizer and xopenex with short lived effect. She is afebrile and denies any sign contacts. She does endorse some associated chest tightness and pleuritic chest pain. On arrival, pt afebrile, no hypoxia. Vitals otherwise stable except for mild tachycardia 101 and tachypnea to 22. No leukocytosis. Renal function, electrolytes normal. Negative for COVID-19. Chest x-ray negative for any acute cardiopulmonary process. In the ED, given 125 mg IV methylprednisolone, Xopenex, IV magnesium, DuoNeb with minimal improvement in symptoms. Review of Systems Review of Systems: General: No fevers, malaise, unintentional weight loss HEENT: +rhinorrhea, +PND. No sore throat, nasal congestion, sinus pain, ear pain Cardiovascular: +pleuritic chest pain. No chest pressure, palpitations, or leg edema Respiratory: +shortness of breath, +wheezing, +productive cough GI: No abdominal pain, nausea, vomiting, diarrhea, constipation, melena, hematochezia : No dysuria, hematuria, increased urinary frequency, decreased urinary output MSK: No myalgia, back pain Neuro: No headaches, weakness, paresthesias Skin: No rashes or lesions [facility] Medical History ADHD Alcohol abuse Anxiety Asthma Asthma-COPD overlap syndrome Cocaine abuse COPD (chronic obstructive pulmonary disease) DMII (diabetes mellitus, type 2) Epilepsy Fibromyalgia History of suicide attempt HTN (hypertension) Obese Sleep apnea Tracheomalacia Family History Father No problems noted. Mother Cervical cancer Mental health disorder Surgical History History of cholecystectomy Previous section Social History Household Members: Spouse, Family and Children Housing: House Are you a primary health care / medical job titles to a significant other at home: Yes Do you presently have visiting nurse or other home services: No Alcohol intake: never Patient Tobacco Use Status: Former Tobacco user Tobacco use type: Cigarette Cigarettes Per Day: 25 Years Smoked: 20 e-Cigarette/Vaping Use: Currently Using Second Hand Smoke Exposure: No Substance Use Type: Marijuana Advance Directives Date on File: 11/05/20 service: No Current occupational status: disabled Cognitive needs: Yes (Pt would like a cane ) Hearing needs: Yes (?hearing loss mostly from right ear.) Vision needs: Yes (Pt was seen 6 months and exam was good just need readig glasses.) Meds Allergies Allergy/AdvReac Type Severity Reaction Status Date / Time hydromorphone [From DILAUDID] Allergy Severe SEIZURES Verified 04/20/22 17:41 oxycodone [OXYCODONE] Allergy Severe SEIZURES Verified 04/16/22 14:28 vancomycin Allergy Severe Rash Verified 04/16/22 14:28 gabapentin [GABAPENTIN] Allergy Intermediate MUSCLE ACHE Verified 04/16/22 14:28 albuterol Allergy Mild Trouble Verified 04/16/22 14:28 breathing;MDI use only bupropion [From WELLBUTRIN] Allergy Unknown SEIZURES Verified 04/16/22 14:28 phenytoin [Dilantin] Allergy Unknown Unknown Verified 04/16/22 14:28 Active Medications: Current Medications Acetaminophen (Acetaminophen 325 Mg Tablet) 650 mg PO Q6H PRN PRN Reason: Pain, Mild (Pain Scale 1-3) Albuterol Sulfate (Albuterol Sulfate (0.083%) 2.5 Mg/3 Ml Vial.Neb) 2.5 mg INHALE Q2H PRN PRN Reason: Shortness of Breath/Wheezing Albuterol/Ipratropium (Albuterol/Iprat 2.5/0.5mg 3 Ml Ampul.Neb) 3 ml INHALE RQ4H WHILE AWAKE BEATRIZ Amphetamine/Dextroamphetamine (Dextroamphetamine/Amphetamine Xr 10 Mg Cap.Er.24h) 20 mg PO QAM [facility] Amphetamine/Dextroamphetamine (Amphetamine Mixed Salts 20 Mg Tablet) 10 mg PO BID@0700,1600 [facility] Clonidine HCl (Clonidine Hcl 0.1 Mg Tablet) 0.1 mg PO BID [facility]; Protocol Docusate Sodium (Docusate Sodium 100 Mg Capsule) 100 mg PO DAILY PRN PRN Reason: Constipation Enoxaparin Sodium (Enoxaparin Sodium 40 Mg/0.4 Ml Syringe) 40 mg SUBCUT Q24H [facility] Azithromycin 500 mg/ Sodium (Chloride) 250 mls @ 125 mls/hr IV Q24H [facility] Stop: 03/22/23 17:14 Lisinopril (Lisinopril 20 Mg Tablet) 20 mg PO DAILY [facility]; Protocol Methylprednisolone Sodium Succinate (Methylprednisolone Sod Succ 40 Mg/Ml Vial) 40 mg IVPUSH Q12H [facility] Multivitamins/Vitamin C (Multivitamin Tablet) 1 tab PO DAILY [facility] Non-Formulary Medication (Levalbuterol Tartrate [Xopenex Hfa]) 1 - 2 puff INHALE Q4H PRN PRN Reason: Wheezing Ondansetron HCl (Ondansetron Hcl 4 Mg/2 Ml Vial) 4 mg IVPUSH Q8H PRN PRN Reason: Nausea and Vomiting Prazosin HCl (Prazosin Hcl 1 Mg Capsule) 1 mg PO BEDTIME [facility]; Protocol Risperidone (Risperidone 1 Mg Tablet) 1 mg PO BEDTIME [facility] Sodium Chloride (0.9 % Sodium Chloride Flush 3 Ml Syringe) 3 ml IVFLUSH QSHIFT [facility] Home Medications Medication Instructions Recorded Confirmed Last Taken Type dextroamphetamine-amphetamine 20 10 mg PO BID@0700,1600 07/26/20 03/20/23 03/20/23 History mg tablet multivitamin 1 tab PO DAILY 11/05/20 03/20/23 04/20/22 History levalbuterol tartrate 45 1 - 2 puff inhalation Q4H PRN 04/20/22 03/20/23 04/20/22 History mcg/actuation aerosol inhaler Wheezing (Xopenex HFA) lisinopril 20 mg tablet 1 tab PO DAILY 04/20/22 03/20/23 03/20/23 History clonidine HCl 0.1 mg tablet 0.1 mg PO BID 03/20/23 03/20/23 Unknown History dextroamphetamine-amphetamine ER 1 cap PO QAM 03/20/23 03/20/23 03/20/23 History 20 mg 24hr capsule,extend release dulaglutide 1.5 mg/0.5 mL 1.5 mg subcut WE 03/20/23 03/20/23 Unknown History subcutaneous pen injector (Trulicity) prazosin 1 mg capsule 1 mg PO BEDTIME nightmares 03/20/23 03/20/23 Unknown History risperidone 1 mg tablet 1 mg PO BEDTIME 03/20/23 03/20/23 Unknown History Physical Exam Vital Signs and Narrative: Vital Signs: Last Vital Signs Temp 98.4 F 03/20/23 10:23 Pulse 86 03/20/23 12:55 Resp 21 H 03/20/23 12:55 BP 139/90 H 03/20/23 10:23 Pulse Ox 96 03/20/23 10:23 O2 Del Method Room Air 03/20/23 10:23 BMI result Body Mass Index 29.3 Constitutional - Awake and Alert, No apparent distress Eyes - PERRLA, EOMI Cardiovascular - S1S2, RRR, No edema Respiratory - Normal lung expansion, Normal respiratory effort, No respiratory distress, lung sounds somewhat diminished with diffuse expiratory wheezing. No rhonchi or rales Gastrointestinal - NT / ND; +BS; No rebound or guarding Extremities - no calf tenderness bilaterally, no swelling Skin - Warm/Dry Neurological - Alert & oriented x3 Psychological - Appropriate affect Results Labs 03/20/23 11:51 03/20/23 11:51 Labs: Laboratory Results - last 24 hr 03/20/23 03/20/23 03/20/23 11:51 11:51 11:51 MCV 96.2 MCH 32.9 MCHC 34.2 RDW 16.3 H Plt Count 317 MPV 9.6 Immature Gran % (Auto) 0.5 H Neut % (Auto) 55.7 Lymph % (Auto) 33.2 [place] % (Auto) 8.6 Eos % (Auto) 1.2 Baso % (Auto) 0.8 Lymph # (Auto) 3.2 [place] # (Auto) 0.8 Eos # (Auto) 0.1 Baso # (Auto) 0.1 Abs Immat Gran (auto) 0.05 H Absolute Neuts (auto) 5.4 Absolute Nucleated RBC 0.000 Nucleated RBC % (auto) 0.0 PT 9.9 L INR 0.9 Anion Gap 15 Estim Creat Clear Calc 90.8 Estimated GFR > 60 Random Glucose 118 H Calcium 9.0 Total Bilirubin 0.6 Direct Bilirubin 0.1 AST 57 H ALT 53 H Alkaline Phosphatase 85 Troponin I High Sens Total Protein 7.1 Albumin 3.8 COVID-19 ([facility]) COVID-19 Clin Com 03/20/23 03/20/23 11:51 11:52 MCV MCH MCHC RDW Plt Count MPV Immature Gran % (Auto) Neut % (Auto) Lymph % (Auto) [place] % (Auto) Eos % (Auto) Baso % (Auto) Lymph # (Auto) [place] # (Auto) Eos # (Auto) Baso # (Auto) Abs Immat Gran (auto) Absolute Neuts (auto) Absolute Nucleated RBC Nucleated RBC % (auto) PT INR Anion Gap Estim Creat Clear Calc Estimated GFR Random Glucose Calcium Total Bilirubin Direct Bilirubin AST ALT Alkaline Phosphatase Troponin I High Sens < 2.7 Total Protein Albumin COVID-19 ([facility]) Negative COVID-19 Clin Com See Note Imaging Radiologist's Impressions: Impressions Chest X-Ray 03/20/23 12:40 IMPRESSION: No acute cardiopulmonary process. Assessment and Plan (1) Acute exacerbation of COPD with asthma: Status: Acute Plan 52-year-old female with a past medical history of hypertension, hyperlipidemia, diabetes, COPD-not on home oxygen, history of MRSA infection, fibromyalgia, arthritis, anxiety, depression, TEO not on CPAP, and history etoh and cocaine abuse who is a former cigarette smoker with 20 pack year history currently vaping both nicotine and THC admitted for acute COPD exacerbation. #Acute COPD exacerbation -Tachypnea r/t COPD, tachycardia r/t duonebs (albuterol)- no sepsis -No hypoxia. CXR negative -has asthma/copd overlap at baseline -IV methylprednisolone 40mg bid -Duonebs q4h while awake -albuterol neb q2h prn (unable to tolerate albuterol MDI only) -azithromycin 500 mg daily for pleiotropic effect # [id number] type 2 diabetes-controlled -hold Trulicity -POC glucose- monitor for steroid induced hyperglycemia -diabetic diet -Humalog on sliding scale # hypertension-reasonably controlled -continue lisinopril, clonidine # mood disorder/ADHD -continue home meds # TEO -not on CPAP, counseled on the importance of CPAP use # nicotine dependence -former smoker with 20 pack year history -currently vapes nicotine and THC -nicotine patches PRN for NRT DVT prophylaxis-Lovenox Full code Patient requires inpatient stay at least 2 midnights for management of acute COPD exacerbation with intermittent tachypnea and diminished lung sounds requiring IV steroids in close monitoring for pulmonary decompensation Time Spent With Patient Time: Total time managing care of this patient today ____ minutes. Quality Stroke Does the patient have a stroke diagnosis?: No VTE Prior VTE?: No VTE Risk Level:: Medical - moderate - high VTE Device Contraindication: Treatment Not Indicated VTE Drug Contraindication: N/A - Med Ordered
--- NOTE | 2023-03-20 15:49 | PC.NURSE ---
azithromycin was not given pt stated she is allergic and gets hives. Allergy has been added to allergy list.
[2023-03-21] VITALS (8 sets, daily range): BP systolic 122–169; BP diastolic 63–80; PULSE 71–93; RESP 16–19; TEMP 36.1–36.8; O2SAT 90–98
--- NOTE | 2023-03-21 08:56 | HO.PM.IMPN ---
Subjective Subjective Date of Service: 03/21/23 Interval History: Complaining of persistent shortness of breath and wheeze, denies fever chills, no nausea, no vomiting, no abdominal pain tolerating diet, no urinary symptoms, no acute issues overnight, admitted to have seasonal allergies using Claritin daily. Review of Systems All other system reviewed and negative Physical Exam Vital Signs: Vital Signs: Last Vital Signs Temp 97 F 03/21/23 07:26 Pulse 86 03/21/23 07:26 Resp 16 03/21/23 07:26 BP 128/80 03/21/23 07:26 Pulse Ox 93 03/21/23 07:26 O2 Del Method Room Air 03/21/23 07:26 BMI result Body Mass Index 31.0 Const: Other: General awake, alert x3, in no acute distress.? Neck supple no JVD, no stridor. CVS? regular rate rhythm, Respiratory lungs bilateral expiratory wheeze, no respiratory distress, no rales. Gastrointestinal abdomen soft, nontender, bowel sounds audible, no guarding , no rigidity. Extremities no edema. Neuro nonfocal , moving all 4 extremity speech clear. Skin no rash Psych appropriate affect Objective Data Active Medications Acetaminophen (Acetaminophen 325 Mg Tablet) 650 mg PO Q6H PRN PRN Reason: Pain, Mild (Pain Scale 1-3) Albuterol Sulfate (Albuterol Sulfate (0.083%) 2.5 Mg/3 Ml Vial.Neb) 2.5 mg INHALE Q2H PRN PRN Reason: Shortness of Breath/Wheezing Albuterol/Ipratropium (Albuterol/Iprat 2.5/0.5mg 3 Ml Ampul.Neb) 3 ml INHALE RQ4H WHILE AWAKE [facility] Last Admin: 03/20/23 19:32 Dose: 3 ml Documented By: ANA Amphetamine/Dextroamphetamine (Dextroamphetamine/Amphetamine Xr 10 Mg Cap.Er.24h) 20 mg PO DAILY [facility] Last Admin: 03/21/23 08:09 Dose: 20 mg Documented By: GARETH Amphetamine/Dextroamphetamine (Amphetamine Mixed Salts 10 Mg Tablet) 10 mg PO BID@0700,1600 [facility] Last Admin: 03/21/23 05:25 Dose: 10 mg Documented By: NISHA Benzonatate (Benzonatate 100 Mg Capsule) 100 mg PO TID [facility] Last Admin: 03/21/23 08:10 Dose: 100 mg Documented By: GARETH Clonidine HCl (Clonidine Hcl 0.1 Mg Tablet) 0.1 mg PO BID [facility]; Protocol Last Admin: 03/21/23 08:10 Dose: 0.1 mg Documented By: GARETH Docusate Sodium (Docusate Sodium 100 Mg Capsule) 100 mg PO DAILY PRN PRN Reason: Constipation Doxycycline Monohydrate (Doxycycline Monohydrate 100 Mg Capsule) 100 mg PO Q12H [facility] Stop: 03/25/23 04:01 Last Admin: 03/21/23 05:25 Dose: 100 mg Documented By: NISHA Enoxaparin Sodium (Enoxaparin Sodium 40 Mg/0.4 Ml Syringe) 40 mg SUBCUT Q24H [facility] Last Admin: 03/20/23 15:11 Dose: 40 mg Documented By: MARS Fluticasone Propionate (Fluticasone Propionate Nasal 16 Gm [place]) 1 spray NOSTRIL-B DAILY [facility] Last Admin: 03/21/23 08:13 Dose: Not Given Documented By: GARETH Non-Admin Reason: Patient Refused Guaifenesin (Guaifenesin 200 Mg/10 Ml 10 Ml Liquid) 10 ml PO Q6H PRN PRN Reason: Cough Levalbuterol HCl (Levalbuterol Hcl 1.25 Mg/3 Ml Vial.Neb) 1.25 mg INHALE Q4H PRN PRN Reason: Wheezing Lisinopril (Lisinopril 20 Mg Tablet) 20 mg PO DAILY [facility]; Protocol Last Admin: 03/21/23 08:10 Dose: 20 mg Documented By: GARETH Methylprednisolone Sodium Succinate (Methylprednisolone Sod Succ 40 Mg/Ml Vial) 40 mg IVPUSH Q12H [facility] Last Admin: 03/21/23 00:17 Dose: 40 mg Documented By: NISHA Multivitamins/Vitamin C (Multivitamin Tablet) 1 tab PO DAILY [facility] Last Admin: 03/21/23 08:10 Dose: 1 tab Documented By: GARETH Nicotine (Nicotine 21 Mg Patch.Td24) 21 mg TRANSDERMA DAILY PRN PRN Reason: Nicotine Cravings Ondansetron HCl (Ondansetron Hcl 4 Mg/2 Ml Vial) 4 mg IVPUSH Q8H PRN PRN Reason: Nausea and Vomiting Prazosin HCl (Prazosin Hcl 1 Mg Capsule) 1 mg PO BEDTIME [facility]; Protocol Last Admin: 03/20/23 19:55 Dose: 1 mg Documented By: NISHA Risperidone (Risperidone 1 Mg Tablet) 1 mg PO BEDTIME [facility] Last Admin: 03/20/23 19:55 Dose: 1 mg Documented By: NISHA Sodium Chloride (0.9 % Sodium Chloride Flush 3 Ml Syringe) 3 ml IVFLUSH QSHIFT [facility] Last Admin: 03/21/23 08:08 Dose: 3 ml Documented By: GARETH Labs 03/21/23 05:39 03/21/23 05:39 Labs: Laboratory Results - last 24 hr 03/20/23 03/20/23 03/20/23 11:51 11:51 11:51 MCV 96.2 MCH 32.9 MCHC 34.2 RDW 16.3 H Plt Count 317 MPV 9.6 Immature Gran % (Auto) 0.5 H Neut % (Auto) 55.7 Lymph % (Auto) 33.2 [place] % (Auto) 8.6 Eos % (Auto) 1.2 Baso % (Auto) 0.8 Lymph # (Auto) 3.2 [place] # (Auto) 0.8 Eos # (Auto) 0.1 Baso # (Auto) 0.1 Abs Immat Gran (auto) 0.05 H Absolute Neuts (auto) 5.4 Absolute Nucleated RBC 0.000 Nucleated RBC % (auto) 0.0 PT 9.9 L INR 0.9 Anion Gap 15 Estim Creat Clear Calc 90.8 Estimated GFR > 60 POC Glucose Random Glucose 118 H Calcium 9.0 Total Bilirubin 0.6 Direct Bilirubin 0.1 AST 57 H ALT 53 H Alkaline Phosphatase 85 Troponin I High Sens Total Protein 7.1 Albumin 3.8 COVID-19 ([facility]) COVID-19 Clin Com 03/20/23 03/20/23 03/21/23 11:51 11:52 05:39 MCV 96.8 MCH 32.5 MCHC 33.6 RDW 16.6 H Plt Count 306 MPV 10.0 Immature Gran % (Auto) 0.8 H Neut % (Auto) 88.0 H Lymph % (Auto) 8.1 L [place] % (Auto) 3.0 Eos % (Auto) 0.0 Baso % (Auto) 0.1 Lymph # (Auto) 1.0 L [place] # (Auto) 0.4 Eos # (Auto) 0.0 Baso # (Auto) 0.0 Abs Immat Gran (auto) 0.09 H Absolute Neuts (auto) 10.4 H Absolute Nucleated RBC 0.000 Nucleated RBC % (auto) 0.0 PT INR Anion Gap Estim Creat Clear Calc Estimated GFR POC Glucose Random Glucose Calcium Total Bilirubin Direct Bilirubin AST ALT Alkaline Phosphatase Troponin I High Sens < 2.7 Total Protein Albumin COVID-19 ([facility]) Negative COVID-19 Clin Com See Note 03/21/23 03/21/23 05:39 07:28 MCV MCH MCHC RDW Plt Count MPV Immature Gran % (Auto) Neut % (Auto) Lymph % (Auto) [place] % (Auto) Eos % (Auto) Baso % (Auto) Lymph # (Auto) [place] # (Auto) Eos # (Auto) Baso # (Auto) Abs Immat Gran (auto) Absolute Neuts (auto) Absolute Nucleated RBC Nucleated RBC % (auto) PT INR Anion Gap 17 Estim Creat Clear Calc 83.2 Estimated GFR > 60 POC Glucose 297 H Random Glucose 277 H Calcium 9.3 Total Bilirubin Direct Bilirubin AST ALT Alkaline Phosphatase Troponin I High Sens Total Protein Albumin COVID-19 ([facility]) COVID-19 Clin Com Assessment and Plan (1) Acute exacerbation of COPD with asthma: Status: Acute Plan 52-year-old female with a past medical history of hypertension, hyperlipidemia, diabetes, COPD-not on home oxygen, history of MRSA infection, fibromyalgia, arthritis, anxiety, depression, TEO not on CPAP, and history etoh and cocaine abuse who is a former cigarette smoker with 20 pack year history currently vaping both nicotine and THC admitted for acute COPD exacerbation. #Acute COPD exacerbation -tachypnea tachycardia improved,No hypoxia. CXR negative, O2 93% as per patient it was 89% will monitor O2 sats closely -has asthma/copd overlap at baseline -continue IV methylprednisolone 40mg bid times 24 hour 1 transition to by mouth prednisone at am -Duonebs q4h while awake, albuterol neb q2h prn (unable to tolerate albuterol MDI only) -doxy 100mg bid day 2/5 Recommend out of bed and ambulation. # [id number] type 2 diabetes-controlled -elevated blood sugars due to steroids continue diabetic diet, Humalog sliding scale, will adjust dosage of ISS # hypertension-reasonably controlled -continue lisinopril, clonidine and prazosin # mood disorder/ADHD -continue home meds risperidonel, and adderall # TEO -not on CPAP, counseled on the importance of CPAP use # nicotine dependence -former smoker with 20 pack year history -currently vapes nicotine and THC, counseling done -continue nicotine patches PRN for NRT DVT prophylaxis-Lovenox Full code Patient requires continued inpatient stay for management of acute COPD exacerbation with intermittent tachypnea and wheeze requiring IV steroids and close monitoring for pulmonary decompensation. Time Spent With Patient Time: Total time managing care of this patient today ____ minutes. Quality Stroke Does the patient have a stroke diagnosis?: No VTE Prior VTE?: No VTE Risk Level:: Medical - moderate - high VTE Device Contraindication: Treatment Not Indicated VTE Drug Contraindication: N/A - Med Ordered
--- NOTE | 2023-03-21 09:44 | MHC.CM.PN ---
Pt lives with her and children and is fully independent with care She has a cane, walker, and nebulizer she uses PRN Pt has no services she has a HCP on file PCP: Philip Romano assessment negative IMM delivered DCP: Home, no services via private transport
[2023-03-22 04:00] VITALS: BP 163/84; PULSE 64; RESP 16; TEMP 36.5; O2SAT 91
[2023-03-22 07:22] VITALS: BP 158/87; PULSE 73; RESP 18; TEMP 36.6; O2SAT 93
[2023-03-22 07:34] VITALS: PULSE 86; RESP 18; O2SAT 95
--- NOTE | 2023-03-22 09:37 | PM.DS ---
DS: Providers Provider Date of Service: 03/22/23 Date of admission: 03/20/23 14:58 Primary care physician: Philip Purcell MD DS: Diagnosis Discharge Diagnosis (1) Acute exacerbation of COPD with asthma: Status: Acute DS: Summary Hospital Course Hospital Course: from intial hpi: 2-year-old female with a past medical history of hypertension, hyperlipidemia, diabetes, COPD-not on home oxygen, history of MRSA infection, fibromyalgia, arthritis, anxiety, depression, TEO not on CPAP, and history etoh and cocaine abuse who is a former cigarette smoker with 20 pack year history currently vaping both nicotine and THC presented to the ED for evaluation of 2 weeks of worsening shortness of breath and cough. Pt states about 12 days about developed allergy like symptoms with rhinorrhea and PND. Has tracheomalacia and voice has become raspy. She has developed increase in cough frequency with increased sputum production, now white/yellow in color. She has been using her nebulizer and xopenex with short lived effect. She is afebrile and denies any sign contacts. She does endorse some associated chest tightness and pleuritic chest pain. On arrival, pt afebrile, no hypoxia. Vitals otherwise stable except for mild tachycardia 101 and tachypnea to 22. No leukocytosis. Renal function, electrolytes normal.? Negative for COVID-19.? Chest x-ray negative for any acute cardiopulmonary process.? In the ED, given 125 mg IV methylprednisolone, Xopenex, IV magnesium, DuoNeb with minimal improvement in symptoms. hospital course: Patient was admitted for COPD with acute decompensation. She was she with IV steroids and DuoNebs as well as doxycycline. Shortness of breath significantly improved over the next couple days, she was able to ambulate with minimal shortness of breath. She is no longer wheezing at time of discharge. She will be discharged home on 5 more days of prednisone and complete 5 day course of doxycycline. For diabetes she was continue insulin. For hypertension she was continued on lisinopril, clonidine, prazosin. From mood disorder/ADHD she was continued on risperidone and Adderall. For TEO she will follow up outpatient, does not use CPAP at home. For nicotine dependence she was given Nicoderm. Patient is feeling better will be discharged home. Time Spent with Patient Time attestation: Total time managing care of this patient today ____ minutes. Discharge coordination time: Greater than 30 minutes Quality: Safe Use of Opioids Does Pt have an Active Cancer Diagnosis on the Problem List?: No Quality: Stroke Does the patient have a stroke diagnosis?: No Physical Exam Vital Signs: Vital Signs: Last Vital Signs Temp 98 F 03/22/23 07:22 Pulse 86 03/22/23 07:34 Resp 18 03/22/23 07:34 BP 158/87 H 03/22/23 07:22 Pulse Ox 93 03/22/23 07:22 O2 Del Method Room Air 03/22/23 07:22 BMI result Body Mass Index 31.0 General: AO X 3, no acute distress Resp: CTA bilateral, no accessory muscles used CVS: S1,S2,RRR GI: soft, non tender, non distended Neuro: motor grossly intact, alert Psych: appropriate affect, appropriate insight DS: Data Data Completed and Pending Completed studies during hospitalization [Text1]: Procedures Detoxification Services for Substance Abuse Treatment (10/08/20) Labs on day of discharge: Laboratory Results - last 24 hr 03/21/23 03/21/23 03/21/23 10:59 12:40 16:04 POC Glucose 263 H 249 H Respiratory Panel Dom[place] See Note Adenovirus (Rapid PCR) Not Detected B.pert (TEM-PCR) Not Detected B.parapertussis DNA PCR Not Detected C. pneumoniae DNA (PCR) Not Detected Coronavirus OC43 (PCR) Not Detected Coronavirus HKU1 (PCR) Not Detected Coronavirus 229E (PCR) Not Detected Coronavirus NL63 (PCR) Not Detected Human Metapneumovir PCR Not Detected Influenza A (RT-PCR) Not Detected Influenza B (RT-PCR) Not Detected M. pneumoniae (PCR) Not Detected Parainfluenza 1 (PCR) Not Detected Parainfluenza 2 (PCR) Not Detected Parainfluenza 3 (PCR) Not Detected Parainfluenza 4 (PCR) Not Detected RSV (PCR) Not Detected Entero/Rhino (PCR) Not Detected SARS-CoV-2 RNA (RT-PCR) Not Detected 03/21/23 03/22/23 20:44 07:20 POC Glucose 249 H 314 H Respiratory Panel [place] Adenovirus (Rapid PCR) B.pert (TEM-PCR) B.parapertussis DNA PCR C. pneumoniae DNA (PCR) Coronavirus OC43 (PCR) Coronavirus HKU1 (PCR) Coronavirus 229E (PCR) Coronavirus NL63 (PCR) Human Metapneumovir PCR Influenza A (RT-PCR) Influenza B (RT-PCR) M. pneumoniae (PCR) Parainfluenza 1 (PCR) Parainfluenza 2 (PCR) Parainfluenza 3 (PCR) Parainfluenza 4 (PCR) RSV (PCR) Entero/Rhino (PCR) SARS-CoV-2 RNA (RT-PCR) Discharge Plan Discharge Anticipated Discharge Date/Time: 03/22/23 09:35 Patient Disposition: Home, Self-Care Discharge Diagnosis: copd/athms Referrals: Philip Purcell MD [Primary Care Provider] - 1 Week Discharge Medications: New doxycycline monohydrate 100 mg Capsule 100 mg PO Q12H Qty: 6 0RF prednisone 20 mg tablet 40 mg PO DAILY Qty: 10 0RF Continued ipratropium-albuterol 0.5 mg-3 mg(2.5 mg base)/3 mL solution for nebulization 3 ml inhalation Q4-6H PRN (Reason: shortness of breath or wheezing) Qty: 180 0RF dextroamphetamine-amphetamine 20 mg tablet 10 mg PO BID@0700,1600 (DME) blood-glucose meter [Accu-Chek Guide Glucose Meter] Misc See Rx Instructions .ROUTE .MEDSUPPLY Qty: 1 0RF Rx Instructions: As directed (DME) Accu-Chek Guide test strips Strip See Rx Instructions .ROUTE .MEDSUPPLY Qty: 100 0RF Rx Instructions: As directed (DME) lancets [Accu-Chek Multiclix Lancet] Misc See Rx Instructions .ROUTE .MEDSUPPLY Qty: 100 0RF Rx Instructions: As directed multivitamin Tablet 1 tab PO DAILY levalbuterol tartrate [Xopenex HFA] 45 mcg/actuation HFA aerosol inhaler 1 - 2 puff inhalation Q4H PRN (Reason: Wheezing) lisinopril 20 mg tablet 1 tab PO DAILY clonidine HCl 0.1 mg tablet 0.1 mg PO BID dextroamphetamine-amphetamine 20 mg capsule,extended release 24hr 1 cap PO QAM risperidone 1 mg tablet 1 mg PO BEDTIME Trulicity 1.5 mg/0.5 mL pen injector 1.5 mg subcut WE prazosin 1 mg capsule 1 mg PO BEDTIME Discharge Orders: Discharge Order (Routine); Ordered 03/22/23 Ordered By: Leonidas Tejada Diet: Advance to usual diet Activity on Discharge: As tolerated Stand Alone Forms: Patient Portal Discharge page Care Plan Goals: recovery Health Concerns: copd/asthma Plan of Treatment: doxy, prednisone Assessment: see above
--- NOTE | 2023-03-22 09:52 | MHC.CM.PN ---
DP: PT HAS BEEN MEDICALLY CLEARED FOR DC HOME, NO SERVICES. FAMILY WILL TRANSPORT.
== END 2023-03-22 10:48 | disposition home or self-care (01) | DRG 140 ==
LOC: HO.ED 14:19 → HO.EDOVER 15:08 → HO.S3 15:20
PROVIDERS: Admitting Provider Physician Assistant; Emergency Provider Emergency Medicine Emergency Medical Services; PCP Internal Medicine; Visit Provider Internal Medicine
DX: J44.1 Chronic obstructive pulmonary disease with (acute) exacerbation (principal); E11.9 Type 2 diabetes mellitus without complications; F39 Unspecified mood [affective] disorder; G47.33 Obstructive sleep apnea (adult) (pediatric); M79.7 Fibromyalgia; F90.9 Attention-deficit hyperactivity disorder, unspecified type; Z86.14 Personal history of Methicillin resistant Staphylococcus aureus infection; Z20.822 Contact with and (suspected) exposure to COVID-19; Z87.891 Personal history of nicotine dependence; Z79.899 Other long term (current) drug therapy
CPT/HCPCS: 36415; 71045; 80048; 80076; 82947; 84484; 85025; 85610; 87633; 87635; 93005; 94640; 99285; J0456; J1650; J2405; J2920; J2930; J3475

== ENCOUNTER 2023-05-16 01:27 | Emergency (ER) | payer BC, MEDICARE, SELFPAY ==
--- NOTE | ~2023-05-16 | US_ITS ---
EXAMINATION: US VENOUS ULTRASOUND WITH DOPPLER LOWER EXTREMITY, LEFT CLINICAL INFORMATION: Left leg swelling. COMPARISON: None available. TECHNIQUE: Ultrasound of the deep veins is performed from the hip to the calf with compression sonography and color and pulse Doppler assessment. Spectral analysis with color-flow imaging is performed. FINDINGS: There is normal venous compression and respiratory variation and augmented flow. The visualized common femoral vein, superficial femoral vein, profunda femoral vein, popliteal vein, and the trifurcation region shows no evidence of deep venous thrombosis. There is a 2.1 x 0.5 x 1.7 cm Vizcaino's cyst. If the patient's symptoms persist, followup ultrasound in 5 days 7 days might be of value to exclude proximal propagation from a non-visualized calf vein. US/US venous duplex LE IMPRESSION: No DVT demonstrated in the left lower extremity.
--- NOTE | ~2023-05-16 | XR_ITS ---
EXAMINATION: XR CHEST CLINICAL INFORMATION: Shortness of breath. COMPARISON: 03/20/2023 TECHNIQUE: Frontal view of the chest was obtained. FINDINGS: The cardiomediastinal silhouette is normal. There is no focal lung consolidation or pleural effusion. The bony structures and soft tissues are unremarkable. XR/XR chest 1V IMPRESSION: No active cardiopulmonary disease.
[2023-05-16 01:44] VITALS: BP 114/70; PULSE 123; RESP 22; TEMP 36.1; O2SAT 95; BMI 30.1
--- NOTE | 2023-05-16 01:58 | ECG_ITS ---
Test Reason : sob Blood Pressure : / mmHG Vent. Rate : 117 BPM Atrial Rate : 117 BPM P-R Int : 132 ms QRS Dur : 096 ms QT Int : 360 ms P-R-T Axes : 047 048 065 degrees QTc Int : 502 ms Sinus tachycardia Nonspecific ST abnormality Abnormal ECG When compared with ECG of 20-MAR-2023 11:38, Nonspecific ST abnormality is now Present Heart rate has increased Referred By: Veronica Butt Electronically Signed By:PERRI WOOD
--- NOTE | 2023-05-16 02:00 | ED.GENADULT ---
HPI - General Adult General Chief complaint: General Medical Stated complaint: Swollen vein with pain, asthma Time Seen by Provider: 05/16/23 01:54 Source: patient Mode of arrival: ambulatory Limitations: no limitations History of Present Illness HPI narrative: Patient comes to the emergency room complaining pain in her left eye. Patient states that she has varicose veins with the stem they seem to be more painful and the leg is more swollen according to her. Patient also complaining of shortness of breath and wheezing. Patient known to have asthma and COPD. Patient denies chest pain, no recent URIs Related Data Home Medications Medication Instructions Recorded Confirmed dextroamphetamine-amphetamine 20 10 mg PO BID@0700,1600 07/26/20 03/20/23 mg tablet multivitamin 1 tab PO DAILY 11/05/20 03/20/23 levalbuterol tartrate 45 1 - 2 puff inhalation Q4H PRN 04/20/22 03/20/23 mcg/actuation aerosol inhaler Wheezing (Xopenex HFA) lisinopril 20 mg tablet 1 tab PO DAILY 04/20/22 03/20/23 clonidine HCl 0.1 mg tablet 0.1 mg PO BID 03/20/23 03/20/23 dextroamphetamine-amphetamine ER 1 cap PO QAM 03/20/23 03/20/23 20 mg 24hr capsule,extend release dulaglutide 1.5 mg/0.5 mL 1.5 mg subcut WE 03/20/23 03/20/23 subcutaneous pen injector (Trulicity) prazosin 1 mg capsule 1 mg PO BEDTIME nightmares 03/20/23 03/20/23 risperidone 1 mg tablet 1 mg PO BEDTIME 03/20/23 03/20/23 Previous Rx's Medication Instructions Recorded blood sugar diagnostic (Accu-Chek #100 ea 10/11/20 Guide test strips) blood-glucose meter (Accu-Chek #1 ea 10/11/20 Guide Glucose Meter) lancets (Accu-Chek Multiclix #100 ea 10/11/20 Lancet) ipratropium 0.5 mg-albuterol 3 mg 3 ml inhalation Q4-6H PRN 12/13/20 (2.5 mg base)/3 mL nebulization shortness of breath or wheezing soln #180 mL doxycycline monohydrate 100 mg 100 mg PO Q12H #6 caps 03/22/23 capsule prednisone 20 mg tablet 40 mg PO DAILY #10 tabs 03/22/23 Allergies Allergy/AdvReac Type Severity Reaction Status Date / Time hydromorphone [From DILAUDID] Allergy Severe SEIZURES Verified 05/16/23 01:58 oxycodone [OXYCODONE] Allergy Severe SEIZURES Verified 05/16/23 01:58 vancomycin Allergy Severe Rash Verified 05/16/23 01:58 gabapentin [GABAPENTIN] Allergy Intermediate MUSCLE ACHE Verified 05/16/23 01:58 albuterol Allergy Mild Trouble Verified 05/16/23 01:58 breathing;MDI use only bupropion [From WELLBUTRIN] Allergy Unknown SEIZURES Verified 05/16/23 01:58 phenytoin [Dilantin] Allergy Unknown Unknown Verified 05/16/23 01:58 azithromycin Allergy Hives Verified 05/16/23 01:58 Review of Systems Review of Systems: Constitutional : No Weight loss, No Fever, No Chills, No Night Sweats, No Fatigue, No Malaise ENT/Mouth : No Hearing loss, No Ear Pain, No Nasal Congestion, No Sinus Pain, No Hoarseness, No sore throat, No Rhinorrhea, No Swallowing Difficulty Eyes: No Eye Pain, No Swelling, No Redness, No Foreign Body, No Discharge, No Vision Changes Cardiovascular : No Chest Pain, complaining of dyspnea on exertion, no orthopnea, mild left lower extremity edema with pain Respiratory : Complaining of acute on chronic coughing, wheezing Gastrointestinal : No Nausea, No Vomiting, No Diarrhea, No Constipation, No abdominal Pain, No Hematochezia, No Melena Genitourinary : no irregular bleeding, No Dysuria, No Urinary Frequency, No Hematuria, No Urinary Incontinence, No Urgency, No Flank Pain, No Urinary Flow Changes, No Hesitancy Musculoskeletal : No joint pain, No Myalgias, No Joint Swelling Skin : No Skin Lesions, No rash Neuro : No Weakness, No Numbness, No Paresthesias, No Loss of Consciousness, No Dizziness, No Headache Psych : No Anxiety/Panic, No Depression, No SI/HI/AH/VH, No Social Issues, Heme/Lymph: No Bruising, No Bleeding,No Lymphadenopathy Endocrine : No Polyuria, No Polydipsia, No Temperature Intolerance PMFSH Past Medical History Medical History ADHD Alcohol abuse Anxiety Asthma Asthma-COPD overlap syndrome Cocaine abuse COPD (chronic obstructive pulmonary disease) DMII (diabetes mellitus, type 2) Epilepsy Fibromyalgia History of suicide attempt HTN (hypertension) Obese Sleep apnea Tracheomalacia Surgical History History of cholecystectomy Previous section Family History Family History Father No problems noted. 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 day care provider to a significant other at home: Yes Do you presently have visiting nurse or other home services: No Alcohol intake: never Patient Tobacco Use Status: Former Tobacco user Tobacco use type: Cigarette Cigarettes Per Day: 25 Years Smoked: 20 Smoked in Last 30 Days: No e-Cigarette/Vaping Use: Currently Using Second Hand Smoke Exposure: No Use of substances other than those prescribed or required for medical reasons: No Substance Use Type: Marijuana Advance Directives: Yes Advance Directives on File: Yes Advance Directives Date on File: 11/05/20 Patient : No service: No Current occupational status: disabled Cognitive needs: Yes (Pt would like a cane ) Hearing needs: Yes (?hearing loss mostly from right ear.) Vision needs: Yes (Pt was seen 6 months and exam was good just need readig glasses.) Physical Exam ED Vital Signs: Vital Signs - 24 hr 05/16/23 01:44 05/16/23 02:17 05/16/23 05:32 Temperature 97 F 98.8 F Pulse Rate 123 H 94 Respiratory Rate 22 H 16 20 Blood Pressure 114/70 100/60 Pulse Oximetry 95 95 Oxygen Delivery Method Room Air Room Air BMI result Body Mass Index 30.1 Const Other: Appearance: Alert. Oriented X3. No acute distress. Eyes: Pupils equal, round and reactive to light. ENT: Pharynx normal. Neck: Normal inspection. Neck supple. No lymph nodes noted. No crepitus CVS: Normal heart rate and rhythm. Pulses normal. Normal S1 and S2 Respiratory: No respiratory distress. Bilateral wheezing and moderate air movement Abdomen: Soft and nontender. No rigidity. No distention. Skin: Skin warm and dry. Normal skin color. Normal skin turgor. Extremities: No lower extremity edema. No Lacerations. No Rash, pain to palpation over varicose veins in the left leg, no significant swelling on the left leg Neuro: Oriented X 3. No motor deficit. No sensory deficit. Moving all extremities. No slurred speech. CN 2 through 12 grossly intact Psych: calm, cooperative, normal affect Course Course Course Narrative: -patient receiving IV Solu-Medrol, magnesium and levalbuterol -of patient's labs and imaging pending, ultrasound pending as well Medications Administered Discontinued Medications Generic Name Dose Route Start Last Admin Trade Name Felizq PRN Reason Stop Dose Admin Magnesium Sulfate 2 gm in 50 mls @ 25 mls/hr 05/16/23 01:58 05/16/23 04:31 Magnesium Sulfate/H2o IV 05/16/23 03:57 Infused ONCE ONE Infusion Levalbuterol HCl 5 mg 05/16/23 01:59 05/16/23 02:16 Levalbuterol Hcl 1.25 Mg/3 Ml Vial.Neb INHALE 05/16/23 02:00 5 mg ONCE ONE Administration Methylprednisolone Sodium Succinate 125 mg 05/16/23 01:58 05/16/23 02:31 Methylprednisolone Sod Succ 125 Mg/2 Ml Vial IVPUSH 05/16/23 01:59 125 mg ONCE ONE Administration Potassium Chloride 40 meq 05/16/23 02:53 05/16/23 03:05 Potassium Chloride Packet 20 Meq Packet PO 05/16/23 02:54 40 meq ONCE ONE Administration Medical Decision Making Medical Decision Making [facility] Narrative: -my interpretation of labs: Patient's white blood cell count 15.6, patient has been on a prednisone taper, currently at 40 mg daily -patient's potassium 3.0, repleted with p.o. potassium -my interpretation of chest x-ray: No infiltrates -after treatment, patient overall feeling better, ambulating around the emergency room oxygen saturation 96% patient is already on prednisone.. -ultrasound results: No DVT. -patient is already on a prednisone taper, still at high dose, 40 mg. Patient states she has of her medications at home, does not need refill. Differential Diagnosis Differential Diagnoses: The differential diagnosis associated with the presentation includes (Asthma, COPD, pneumonia) Admission/Observation Consideration of admission/observation: Escalation of care including admission/observation considered (Cassette leg pain, patient complaining of wheezing, admission was considered) Lab Data MDM Lab Attestation statement: I reviewed the patient's lab results. 05/16/23 02:13 05/16/23 02:13 Labs: Lab Results 05/16/23 05/16/23 05/16/23 Range/Units 02:12 02:13 02:13 WBC 15.6 H (4.8-10.8) X10*3/uL RBC 4.09 L (4.20-5.50) X10*6/uL Hgb 13.9 (12.0-16.0) g/dl Hct 39.5 (37.0-47.0) % MCV 96.6 (80.0-98.0) fL MCH 34.0 H (27.0-33.0) pg MCHC 35.2 H (31.0-35.0) g/dl RDW 13.2 (11.0-16.0) % Plt Count 256 (160-400) X10*3/uL MPV 9.8 (9.4-12.3) fL Immature Gran % (Auto) 0.6 H (0.0-0.4) % Neut % (Auto) 88.7 H (45-73) % Lymph % (Auto) 4.6 L (20-40) % Dale % (Auto) 5.7 (2-11) % Eos % (Auto) 0.1 (0-4) % Baso % (Auto) 0.3 (0-2) % Lymph # (Auto) 0.7 L (1.2-4.9) X10*3/uL Dale # (Auto) 0.9 (0.1-1.2) X10*3/uL Eos # (Auto) 0.0 (0.0-0.4) X10*3/uL Baso # (Auto) 0.1 (0.0-0.2) X10*3/uL Abs Immat Gran (auto) 0.10 H (0.00-0.03) X10*3/uL Absolute Neuts (auto) 13.8 H (2.0-8.3) x10*3/uL Absolute Nucleated RBC 0.000 (0.0-0.012) X10*3/uL Nucleated RBC % (auto) 0.0 (0.0-0.2) /100WBC PT 12.2 (11.1-13.3) SEC INR 1.0 (0.9-1.1) VBG pH (7.32-7.43) VBG pCO2 mmHg VBG pO2 mmHg VBG HCO3 (22-26) mmol/L VBG O2 Saturation % VBG Base Excess mmol/L Sodium (135-145) mmol/L Potassium (3.3-5.1) mmol/L Chloride (96-108) mmol/L Carbon Dioxide (22-29) mmol/L Anion Gap (12-20) BUN (9-16) mg/dL Creatinine (0.5-1.4) mg/dL Estim Creat Clear Calc Estimated GFR Random Glucose (60-115) mg/dL Lactic Acid (0.5-2.0) mmol/L Calcium (8.4-10.2) mg/dL Total Bilirubin (0.0-1.0) mg/dL Direct Bilirubin (0.0-0.5) mg/dL AST (5-31) U/L ALT (0-31) U/L Alkaline Phosphatase (39-117) U/L Troponin I High Sens (<3.5-17.0) ng/L B-Natriuretic Peptide (<100) pg/mL Total Protein (6.5-8.0) g/dL Albumin (3.5-5.0) g/dL Urine Color Urine Appearance Urine pH (5.0-9.0) Ur Specific [place] (1.005-1.025) Urine Protein (Neg-Trace) mg/dL Urine Glucose (UA) (Negative) mg/dL Urine Ketones (Negative) mg/dL Urine Blood (Negative) Urine Nitrite (Negative) Ur Leukocyte Esterase (Negative) Urine RBC (0-2) /HPF Urine WBC (0-5) /HPF Ur Squamous Epith Cells (0-2) /HPF Urine Bacteria (None Seen) Hyaline Casts (0-2) /LPF Urine Opiates Screen (Not Detect) Urine Fentanyl Screen (Not Detect) Ur Barbiturates Screen (Not Detect) Ur Phencyclidine Scrn (Not Detect) Ur Amphetamines Screen (Not Detect) U Benzodiazepines Scrn (Not Detect) Urine Cocaine Screen (Not Detect) U Marijuana (THC) Screen (Not Detect) Ethyl Alcohol mg/dL COVID-19 ([facility]) Negative (Negative) COVID-19 Clin Com See Note 05/16/23 05/16/23 05/16/23 Range/Units 02:13 02:13 02:13 WBC (4.8-10.8) X10*3/uL RBC (4.20-5.50) X10*6/uL Hgb (12.0-16.0) g/dl Hct (37.0-47.0) % MCV (80.0-98.0) fL MCH (27.0-33.0) pg MCHC (31.0-35.0) g/dl RDW (11.0-16.0) % Plt Count (160-400) X10*3/uL MPV (9.4-12.3) fL Immature Gran % (Auto) (0.0-0.4) % Neut % (Auto) (45-73) % Lymph % (Auto) (20-40) % Dale % (Auto) (2-11) % Eos % (Auto) (0-4) % Baso % (Auto) (0-2) % Lymph # (Auto) (1.2-4.9) X10*3/uL Dale # (Auto) (0.1-1.2) X10*3/uL Eos # (Auto) (0.0-0.4) X10*3/uL Baso # (Auto) (0.0-0.2) X10*3/uL Abs Immat Gran (auto) (0.00-0.03) X10*3/uL Absolute Neuts (auto) (2.0-8.3) x10*3/uL Absolute Nucleated RBC (0.0-0.012) X10*3/uL Nucleated RBC % (auto) (0.0-0.2) /100WBC PT (11.1-13.3) SEC INR (0.9-1.1) VBG pH (7.32-7.43) VBG pCO2 mmHg VBG pO2 mmHg VBG HCO3 (22-26) mmol/L VBG O2 Saturation % VBG Base Excess mmol/L Sodium 137 (135-145) mmol/L Potassium 3.0 L D (3.3-5.1) mmol/L Chloride 105 (96-108) mmol/L Carbon Dioxide 21 L (22-29) mmol/L Anion Gap 14 (12-20) BUN 9 (9-16) mg/dL Creatinine 0.81 (0.5-1.4) mg/dL Estim Creat Clear Calc 73.8 Estimated GFR > 60 Random Glucose 194 H (60-115) mg/dL Lactic Acid 1.4 (0.5-2.0) mmol/L Calcium 9.1 (8.4-10.2) mg/dL Total Bilirubin 1.2 H (0.0-1.0) mg/dL Direct Bilirubin 0.5 (0.0-0.5) mg/dL AST 55 H (5-31) U/L ALT 43 H (0-31) U/L Alkaline Phosphatase 96 (39-117) U/L Troponin I High Sens 9.1 D (<3.5-17.0) ng/L B-Natriuretic Peptide (<100) pg/mL Total Protein 7.3 (6.5-8.0) g/dL Albumin 3.7 (3.5-5.0) g/dL Urine Color Urine Appearance Urine pH (5.0-9.0) Ur Specific [place] (1.005-1.025) Urine Protein (Neg-Trace) mg/dL Urine Glucose (UA) (Negative) mg/dL Urine Ketones (Negative) mg/dL Urine Blood (Negative) Urine Nitrite (Negative) Ur Leukocyte Esterase (Negative) Urine RBC (0-2) /HPF Urine WBC (0-5) /HPF Ur Squamous Epith Cells (0-2) /HPF Urine Bacteria (None Seen) Hyaline Casts (0-2) /LPF Urine Opiates Screen (Not Detect) Urine Fentanyl Screen (Not Detect) Ur Barbiturates Screen (Not Detect) Ur Phencyclidine Scrn (Not Detect) Ur Amphetamines Screen (Not Detect) U Benzodiazepines Scrn (Not Detect) Urine Cocaine Screen (Not Detect) U Marijuana (THC) Screen (Not Detect) Ethyl Alcohol < 10 mg/dL COVID-19 ([facility]) (Negative) COVID-19 Clin Com 05/16/23 05/16/23 05/16/23 Range/Units 02:13 02:21 03:09 WBC (4.8-10.8) X10*3/uL RBC (4.20-5.50) X10*6/uL Hgb (12.0-16.0) g/dl Hct (37.0-47.0) % MCV (80.0-98.0) fL MCH (27.0-33.0) pg MCHC (31.0-35.0) g/dl RDW (11.0-16.0) % Plt Count (160-400) X10*3/uL MPV (9.4-12.3) fL Immature Gran % (Auto) (0.0-0.4) % Neut % (Auto) (45-73) % Lymph % (Auto) (20-40) % Dale % (Auto) (2-11) % Eos % (Auto) (0-4) % Baso % (Auto) (0-2) % Lymph # (Auto) (1.2-4.9) X10*3/uL Dale # (Auto) (0.1-1.2) X10*3/uL Eos # (Auto) (0.0-0.4) X10*3/uL Baso # (Auto) (0.0-0.2) X10*3/uL Abs Immat Gran (auto) (0.00-0.03) X10*3/uL Absolute Neuts (auto) (2.0-8.3) x10*3/uL Absolute Nucleated RBC (0.0-0.012) X10*3/uL Nucleated RBC % (auto) (0.0-0.2) /100WBC PT (11.1-13.3) SEC INR (0.9-1.1) VBG pH 7.52 H (7.32-7.43) VBG pCO2 28 mmHg VBG pO2 93 mmHg VBG HCO3 23 (22-26) mmol/L VBG O2 Saturation 98.0 % VBG Base Excess 1.9 mmol/L Sodium (135-145) mmol/L Potassium (3.3-5.1) mmol/L Chloride (96-108) mmol/L Carbon Dioxide (22-29) mmol/L Anion Gap (12-20) BUN (9-16) mg/dL Creatinine (0.5-1.4) mg/dL Estim Creat Clear Calc Estimated GFR Random Glucose (60-115) mg/dL Lactic Acid (0.5-2.0) mmol/L Calcium (8.4-10.2) mg/dL Total Bilirubin (0.0-1.0) mg/dL Direct Bilirubin (0.0-0.5) mg/dL AST (5-31) U/L ALT (0-31) U/L Alkaline Phosphatase (39-117) U/L Troponin I High Sens (<3.5-17.0) ng/L B-Natriuretic Peptide 31 (<100) pg/mL Total Protein (6.5-8.0) g/dL Albumin (3.5-5.0) g/dL Urine Color Urine Appearance Urine pH (5.0-9.0) Ur Specific [place] (1.005-1.025) Urine Protein (Neg-Trace) mg/dL Urine Glucose (UA) (Negative) mg/dL Urine Ketones (Negative) mg/dL Urine Blood (Negative) Urine Nitrite (Negative) Ur Leukocyte Esterase (Negative) Urine RBC (0-2) /HPF Urine WBC (0-5) /HPF Ur Squamous Epith Cells (0-2) /HPF Urine Bacteria (None Seen) Hyaline Casts (0-2) /LPF Urine Opiates Screen Not Detected (Not Detect) Urine Fentanyl Screen Not Detected (Not Detect) Ur Barbiturates Screen Not Detected (Not Detect) Ur Phencyclidine Scrn Not Detected (Not Detect) Ur Amphetamines Screen POSITIVE H (Not Detect) U Benzodiazepines Scrn Not Detected (Not Detect) Urine Cocaine Screen Not Detected (Not Detect) U Marijuana (THC) Screen POSITIVE H (Not Detect) Ethyl Alcohol mg/dL COVID-19 ([facility]) (Negative) COVID-19 Clin Com 05/16/23 Range/Units 03:09 WBC (4.8-10.8) X10*3/uL RBC (4.20-5.50) X10*6/uL Hgb (12.0-16.0) g/dl Hct (37.0-47.0) % MCV (80.0-98.0) fL MCH (27.0-33.0) pg MCHC (31.0-35.0) g/dl RDW (11.0-16.0) % Plt Count (160-400) X10*3/uL MPV (9.4-12.3) fL Immature Gran % (Auto) (0.0-0.4) % Neut % (Auto) (45-73) % Lymph % (Auto) (20-40) % Dale % (Auto) (2-11) % Eos % (Auto) (0-4) % Baso % (Auto) (0-2) % Lymph # (Auto) (1.2-4.9) X10*3/uL Dale # (Auto) (0.1-1.2) X10*3/uL Eos # (Auto) (0.0-0.4) X10*3/uL Baso # (Auto) (0.0-0.2) X10*3/uL Abs Immat Gran (auto) (0.00-0.03) X10*3/uL Absolute Neuts (auto) (2.0-8.3) x10*3/uL Absolute Nucleated RBC (0.0-0.012) X10*3/uL Nucleated RBC % (auto) (0.0-0.2) /100WBC PT (11.1-13.3) SEC INR (0.9-1.1) VBG pH (7.32-7.43) VBG pCO2 mmHg VBG pO2 mmHg VBG HCO3 (22-26) mmol/L VBG O2 Saturation % VBG Base Excess mmol/L Sodium (135-145) mmol/L Potassium (3.3-5.1) mmol/L Chloride (96-108) mmol/L Carbon Dioxide (22-29) mmol/L Anion Gap (12-20) BUN (9-16) mg/dL Creatinine (0.5-1.4) mg/dL Estim Creat Clear Calc Estimated GFR Random Glucose (60-115) mg/dL Lactic Acid (0.5-2.0) mmol/L Calcium (8.4-10.2) mg/dL Total Bilirubin (0.0-1.0) mg/dL Direct Bilirubin (0.0-0.5) mg/dL AST (5-31) U/L ALT (0-31) U/L Alkaline Phosphatase (39-117) U/L Troponin I High Sens (<3.5-17.0) ng/L B-Natriuretic Peptide (<100) pg/mL Total Protein (6.5-8.0) g/dL Albumin (3.5-5.0) g/dL Urine Color Yellow Urine Appearance Clear Urine pH 6.5 (5.0-9.0) Ur Specific [place] <= 1.005 (1.005-1.025) Urine Protein Negative (Neg-Trace) mg/dL Urine Glucose (UA) Negative (Negative) mg/dL Urine Ketones Negative (Negative) mg/dL Urine Blood Small (1+) H (Negative) Urine Nitrite Negative (Negative) Ur Leukocyte Esterase Large (3+) H (Negative) Urine RBC 0-2 (0-2) /HPF Urine WBC >50 H (0-5) /HPF Ur Squamous Epith Cells 0-2 (0-2) /HPF Urine Bacteria Trace (None Seen) Hyaline Casts 0-2 (0-2) /LPF Urine Opiates Screen (Not Detect) Urine Fentanyl Screen (Not Detect) Ur Barbiturates Screen (Not Detect) Ur Phencyclidine Scrn (Not Detect) Ur Amphetamines Screen (Not Detect) U Benzodiazepines Scrn (Not Detect) Urine Cocaine Screen (Not Detect) U Marijuana (THC) Screen (Not Detect) Ethyl Alcohol mg/dL COVID-19 ([facility]) (Negative) COVID-19 Clin Com Independent Interpretation I performed an independent interpretation of an: Plain X-Ray Radiology Impression Discussion of test interpretation with radiology: I have reviewed the radiologist's reading. Radiologist Impression: The cardiomediastinal silhouette is normal. There is no focal lung consolidation or pleural effusion. The bony structures and soft tissues are unremarkable. XR/XR chest 1V IMPRESSION: No active cardiopulmonary disease. FINDINGS: There is normal venous compression and respiratory variation and augmented flow. The visualized common femoral vein, superficial femoral vein, profunda femoral vein, popliteal vein, and the trifurcation region shows no evidence of deep venous thrombosis. There is a 2.1 x 0.5 x 1.7 cm Vizcaino's cyst. If the patient's symptoms persist, followup ultrasound in 5 days 7 days might be of value to exclude proximal propagation from a non-visualized calf vein. US/US venous duplex LE LT IMPRESSION: No DVT demonstrated in the left lower extremity. External Record Review External record reviewed: Office record (I reviewed pulmonology office visit, patient was supposed to be started on singular for asthma. However, seems that patient is taking roflumilast. ) Critical Care Time Critical Care Time Critical Care Time: Yes Total Critical Care Time: 60 Attestation: I have personally provided critical care time. Time includes review of lab data, radiology results, discussion with consultants, and monitoring for potential decompensation. Intervention performed as documented. Discharge Plan Discharge Clinical Impression: Chronic lung disease, Acute hypokalemia, Left leg pain Patient Disposition: Home, Self-Care Instructions: Leg Pain (ED), Hypokalemia (ED), Chronic Bronchitis (ED) Additional Instructions: Please follow-up with your primary care physician tomorrow. If you have any worsening or new symptoms, please return to the emergency room or call 911 Prescriptions: No Action ipratropium-albuterol 0.5 mg-3 mg(2.5 mg base)/3 mL solution for nebulization 3 ml inhalation Q4-6H PRN (Reason: shortness of breath or wheezing) Qty: 180 0RF dextroamphetamine-amphetamine 20 mg tablet 10 mg PO BID@0700,1600 (DME) blood-glucose meter [Accu-Chek Guide Glucose Meter] Misc See Rx Instructions .ROUTE .MEDSUPPLY Qty: 1 0RF Rx Instructions: As directed (DME) Accu-Chek Guide test strips Strip See Rx Instructions .ROUTE .MEDSUPPLY Qty: 100 0RF Rx Instructions: As directed (DME) lancets [Accu-Chek Multiclix Lancet] Mis See Rx Instructions .ROUTE .MEDSUPPLY Qty: 100 0RF Rx Instructions: As directed multivitamin Tablet 1 tab PO DAILY levalbuterol tartrate [Xopenex HFA] 45 mcg/actuation HFA aerosol inhaler 1 - 2 puff inhalation Q4H PRN (Reason: Wheezing) lisinopril 20 mg tablet 1 tab PO DAILY clonidine HCl 0.1 mg tablet 0.1 mg PO BID dextroamphetamine-amphetamine 20 mg capsule,extended release 24hr 1 cap PO QAM risperidone 1 mg tablet 1 mg PO BEDTIME Trulicity 1.5 mg/0.5 mL pen injector 1.5 mg subcut WE prazosin 1 mg capsule 1 mg PO BEDTIME doxycycline monohydrate 100 mg Capsule 100 mg PO Q12H Qty: 6 0RF prednisone 20 mg tablet 40 mg PO DAILY Qty: 10 0RF
[2023-05-16] MEDS: levalbuterol HCL 1.25 MG/3 ML VIAL.NEB 5 MG INHALE (02:16)
[2023-05-16 02:17] VITALS: RESP 16; O2SAT 94
[2023-05-16 02:19] LABS: MANUAL DIFF FLAG NO
[2023-05-16 02:21] LABS: Basophils Absolute Auto 0.1 X10*3/uL (0.0-0.2); Basophils Percent Auto 0.3 % (0-2); Eosinophils Percent Auto 0.1 % (0-4); Hematocrit 39.5 % (37.0-47.0); Hemoglobin 13.9 g/dl (12.0-16.0); Imm Gran Pct Auto 0.6 % (0.0-0.4); Lymphocytes Absolute Auto 0.7 X10*3/uL (1.2-4.9); Lymphocytes Percent Auto 4.6 % (20-40); Mean Corpuscular HGB Conc 35.2 g/dl (31.0-35.0); Mean Corpuscular Volume 96.6 fL (80.0-98.0); Mean Platelet Volume 9.8 fL (9.4-12.3); Monocytes Absolute Auto 0.9 X10*3/uL (0.1-1.2); Monocytes Percent Auto 5.7 % (2-11); Neutrophils Absolute Auto 13.8 x10*3/uL (2.0-8.3); Neutrophils Percent Auto 88.7 % (45-73); Platelet Count 256 X10*3/uL (160-400); Red Blood Count 4.09 X10*6/uL (4.20-5.50); Red Cell Distribution Width 13.2 % (11.0-16.0); White Blood Count 15.6 X10*3/uL (4.8-10.8)
[2023-05-16 02:23] LABS: Venous Blood Gas Refer to POC result
[2023-05-16 02:26] LABS: VBG Base Excess 1.9 mmol/L; VBG HCO3 23 mmol/L (22-26); VBG pCO2 28 mmHg; VBG pH 7.52 (7.32-7.43); VBG pO2 93 mmHg
[2023-05-16 02:27] LABS: Prothrombin Time 12.2 SEC (11.1-13.3)
[2023-05-16 02:29] LABS: Lactic Acid 1.4 mmol/L (0.5-2.0)
[2023-05-16] MEDS: methylPREDNISolone Sod Succ 125 MG/2 ML VIAL IVPUSH (02:31)
[2023-05-16] MEDS: Magnesium Sulfate/H2O 2 GM/50 ML PIGGYBACK IV (02:31)
[2023-05-16 02:39] LABS: Alanine Aminotransferase 43 U/L (0-31); Albumin Level 3.7 g/dL (3.5-5.0); Alkaline Phosphatase 96 U/L (39-117); Anion Gap 14 (12-20); Aspartate Amino Transferase 55 U/L (5-31); Bilirubin Direct 0.5 mg/dL (0.0-0.5); Bilirubin Total 1.2 mg/dL (0.0-1.0); Blood Urea Nitrogen 9 mg/dL (9-16); Calcium 9.1 mg/dL (8.4-10.2); Carbon Dioxide 21 mmol/L (22-29); Chloride 105 mmol/L (96-108); Creatinine Clr Calc Pharmacy 73.8; Estimated Glomerular Filt Rate > 60; Ethanol < 10 mg/dL; Glucose Random 194 mg/dL (60-115); Sodium 137 mmol/L (135-145); Total Protein 7.3 g/dL (6.5-8.0)
[2023-05-16 02:43] LABS: Troponin-I High Sensitivity 9.1 ng/L (<3.5-17.0)
--- NOTE | 2023-05-16 02:43 | PC.NURSE ---
Pt ambulated with a steady gait, in from waiting room, Pt reports increased shortness of breath since monday, with no relief from breathing treatments. Pt reports dry/nonproductive cough with chest tightness, pt denies CP, Pt reports entire left leg pain, with new varicose vein from foot to thigh. IV placed in RFA, meds given per NOV, & blood drawn and sent to lab, tele monitor placed, EKG obtained and reviewed by provider. Pt speaking in full sentences, with raspy voice, Lung sounds wheezing throughout all romero, SpO2 95 RA. Respiratory therapist at bedside, Respiratory treatment running.
[2023-05-16 02:56] LABS: COVID-19 Test Negative (Negative); IDNOW Serial# 6674DD1D
[2023-05-16 02:58] LABS: B Type Natriuretic Peptide 31 pg/mL (<100)
[2023-05-16] MEDS: Potassium Chloride Packet 20 MEQ PACKET 40 MEQ PO (03:05)
[2023-05-16 03:16] LABS: Appearance Urine Clear; Color Urine Yellow; Glucose Urine UA Negative (Negative); Leukocyte Esterase Urine Large (3+) (Negative); Nitrite Urine Negative (Negative); PH 6.5 (5.0-9.0); Specific Gravity - Urine <= 1.005 (1.005-1.025); UMIC TRIGGER UACC YES; Urine Blood Small (1+) (Negative); Urine Ketones Negative (Negative); Urine Protein Negative (Neg-Trace)
[2023-05-16 03:25] LABS: Amphetamine Screen Urine POSITIVE (Not Detect); Barbiturates, Urine Not Detected (Not Detect); Benzodiazepines Screen Urine Not Detected (Not Detect); Cannabinoid Screen Urine POSITIVE (Not Detect); Cocaine Screen Urine Not Detected (Not Detect); Fentanyl, urine Not Detected (Not Detect); Opiate Screen Urine Not Detected (Not Detect); Phencyclidine Screen Urine Not Detected (Not Detect)
[2023-05-16 03:27] LABS: Bacteria Urine Trace (None Seen); Hyaline Casts Urine 0-2 /LPF (0-2); RBC Urine 0-2 /HPF (0-2); Squamous Epithelial Cell Urine 0-2 /HPF (0-2); UACC Culture Trigger YES; WBC Urine >50 /HPF (0-5)
[2023-05-16 05:32] VITALS: BP 100/60; PULSE 94; RESP 20; TEMP 37.1; O2SAT 95
--- NOTE | 2023-05-16 07:12 | PC.NURSE ---
Pt ambulated with a steady gait, with SpO2 at 96%.
--- NOTE | 2023-05-16 07:14 | PC.NURSE ---
assumed care of pt at 0700. pt a&o x4, pleasant, calm, and cooperative. pt asked this RN to check her blood sugar, as she is a diabetic and was feeling shaky. poc 306. pt stable, up for discharge
[2023-05-16 07:18] LABS: Glucose, Whole Blood 306 mg/dL (60-115)
== END 2023-05-16 07:23 | disposition home or self-care (01) ==
PROVIDERS: Emergency Provider Emergency Medicine
DX: J44.9 Chronic obstructive pulmonary disease, unspecified (principal); E87.6 Hypokalemia; M79.605 Pain in left leg; H57.12 Ocular pain, left eye; R06.02 Shortness of breath; R60.0 Localized edema; R00.0 Tachycardia, unspecified; Z79.899 Other long term (current) drug therapy; Z20.822 Contact with and (suspected) exposure to COVID-19; Z20.828 Contact with and (suspected) exposure to other viral communicable diseases; Z87.891 Personal history of nicotine dependence
CPT/HCPCS: 71045; 80048; 80076; 80307; 81001; 82803; 82947; 83605; 83880; 84484; 85025; 85610; 87040; 87077; 87086; 87088; 87186; 87205; 87635; 93005; 93971; 94640; 96365; 96366; 96375; 99285; J2930; J3475

== ENCOUNTER 2023-07-20 11:32 | Emergency (ER) | payer BC, MEDICARE, SELFPAY ==
--- NOTE | ~2023-07-20 | XR_ITS ---
EXAMINATION: XR CHEST CLINICAL INFORMATION: Shortness of breath COMPARISON: Chest radiograph 05/16/2023 TECHNIQUE: 2 views of the chest were obtained. FINDINGS: At the time of the prior study I believe there may have been some mild upper zone redistribution which is no longer case. The heart and pulmonary vessels appear normal. No infiltrates, effusions or lung masses are seen. Small area of platelike atelectasis is present in the right mid lung. XR/XR chest 2V IMPRESSION: No acute intrathoracic disease.
[2023-07-20 11:44] VITALS: BP 137/26; PULSE 94; RESP 18; TEMP 36.5; O2SAT 97; BMI 28.7
--- NOTE | 2023-07-20 11:45 | ED.GENADULT ---
HPI - General Adult General Chief complaint: Asthma Stated complaint: asthma Time Seen by Provider: 07/20/23 11:53 Source: patient Mode of arrival: ambulatory Limitations: no limitations History of Present Illness HPI narrative: Patient is a 52 year old assigned female at with a history of alcohol abuse and asthma presenting to the emergency department today with an asthma exacerbation. Patient states that over the last 2 days, she has had worsening shortness of breath. Patient states that she was recently admitted at another hospital for an asthma exacerbation. Patient denies any dizziness, lightheadedness, abdominal pain, nausea, vomiting, fever, chills, blurry vision, double vision, loss of vision, chest pain, back pain, night sweats, pain with urination, increased urinary frequency, increased urinary urgency, blood in her urine or stool, syncope or a near syncopal episode, recent trauma or falls, bowel incontinence, bladder incontinence, bowel retention, bladder retention, or any other complaints at this time. Onset (ago): day(s) (2) Severity: mild Severity scale (1-10): 3 Relieving factors: none Exacerbating factors: none Associated symptoms: shortness of breath Treatments prior to arrival: none Related Data Home Medications Medication Instructions Recorded Confirmed dextroamphetamine-amphetamine 20 10 mg PO BID@0700,1600 07/26/20 03/20/23 mg tablet multivitamin 1 tab PO DAILY 11/05/20 03/20/23 levalbuterol tartrate 45 1 - 2 puff inhalation Q4H PRN 04/20/22 03/20/23 mcg/actuation aerosol inhaler Wheezing (Xopenex HFA) lisinopril 20 mg tablet 1 tab PO DAILY 04/20/22 03/20/23 clonidine HCl 0.1 mg tablet 0.1 mg PO BID 03/20/23 03/20/23 dextroamphetamine-amphetamine ER 1 cap PO QAM 03/20/23 03/20/23 20 mg 24hr capsule,extend release dulaglutide 1.5 mg/0.5 mL 1.5 mg subcut WE 03/20/23 03/20/23 subcutaneous pen injector (Trulicity) prazosin 1 mg capsule 1 mg PO BEDTIME nightmares 03/20/23 03/20/23 risperidone 1 mg tablet 1 mg PO BEDTIME 03/20/23 03/20/23 Previous Rx's Medication Instructions Recorded blood sugar diagnostic (Accu-Chek #100 ea 10/11/20 Guide test strips) blood-glucose meter (Accu-Chek #1 ea 10/11/20 Guide Glucose Meter) lancets (Accu-Chek Multiclix #100 ea 10/11/20 Lancet) ipratropium 0.5 mg-albuterol 3 mg 3 ml inhalation Q4-6H PRN 12/13/20 (2.5 mg base)/3 mL nebulization shortness of breath or wheezing soln #180 mL doxycycline monohydrate 100 mg 100 mg PO Q12H #6 caps 03/22/23 capsule prednisone 20 mg tablet 40 mg (2 x 20 mg) PO DAILY #10 tabs 03/22/23 benzonatate 100 mg capsule 100 mg PO BID PRN cough 7 days #14 07/20/23 caps prednisone 20 mg tablet 20 mg PO DAILY 7 days #7 tabs 07/20/23 Allergies Allergy/AdvReac Type Severity Reaction Status Date / Time hydromorphone [From DILAUDID] Allergy Severe SEIZURES Verified 05/16/23 01:58 oxycodone [OXYCODONE] Allergy Severe SEIZURES Verified 05/16/23 01:58 vancomycin Allergy Severe Rash Verified 05/16/23 01:58 gabapentin [GABAPENTIN] Allergy Intermediate MUSCLE ACHE Verified 05/16/23 01:58 albuterol Allergy Mild Trouble Verified 05/16/23 01:58 breathing;MDI use only bupropion [From WELLBUTRIN] Allergy Unknown SEIZURES Verified 05/16/23 01:58 phenytoin [Dilantin] Allergy Unknown Unknown Verified 05/16/23 01:58 azithromycin Allergy Hives Verified 05/16/23 01:58 Review of Systems Constitutional: Constitutional: Reports no additional constitutional complaints, Denies chills, Denies fever(s) and Denies night sweats Eyes: Eyes: Reports no additional eye complaints, Denies blurry vision, Denies change in vision, Denies diplopia, Denies eye discharge, Denies loss of vision and Denies eye pain ENT: Denies dizziness Cardiovascular: Cardiovascular: Reports no additional cardiovascular complaints, Denies chest pain, Denies lightheadedness, Denies Loss of Consciousness and Reports dyspnea Respiratory: Respiratory: Reports no additional respiratory complaints, Reports cough and Reports dyspnea Gastrointestinal: Gastrointestinal: Reports no additional gastrointestinal complaints, Denies abdominal pain, Denies melena, Denies hematochezia, Denies change in bowel habits and Denies change in stool character Genitourinary: Genitourinary: Denies hematuria, Denies urinary frequency, Denies dysuria, Denies urinary incontinence, Denies urinary hesitancy and Denies urinary urgency Musculoskeletal: Musculoskeletal: Reports no additional musculoskeletal complaints, Denies numbness and Denies tingling Neurologic: Denies dizziness, Denies loss of vision, Denies numbness and Denies tingling Psychiatric: Psychiatric: Reports no additional psychiatric complaints Endocrine: Endocrine: Reports no additional endocrine complaints Hematologic/Lymphatic: Hematologic/Lymphatic: Reports no additional hematologic/lymphatic complaints Allergic/Immunologic: Allergic/Immunologic: Reports no additional allergic/immunologic complaints [facility] Past Medical History Attestation statement: The following information was validated with the patient. Source: old records reviewed and nursing notes reviewed Medical History Bilateral knee pain Bilateral foot pain Colon cancer screening Annual physical exam Acute pneumonia Obese DMII (diabetes mellitus, type 2) Anxiety COPD (chronic obstructive pulmonary disease) Sleep apnea History of suicide attempt Asthma-COPD overlap syndrome HTN (hypertension) ADHD Epilepsy Fibromyalgia Tracheomalacia Cocaine abuse Alcohol abuse Asthma Surgical History Previous section History of cholecystectomy Family History Family History Father No problems noted. 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 director critical care to a significant other at home: Yes Do you presently have visiting nurse or other home services: No Alcohol intake: never Patient Tobacco Use Status: Former Tobacco user Tobacco use type: Cigarette Cigarettes Per Day: 25 Years Smoked: 20 e-Cigarette/Vaping Use: Currently Using Second Hand Smoke Exposure: No Substance Use Type: Marijuana Advance Directives: Yes Advance Directives on File: Yes Advance Directives Date on File: 11/05/20 service: No Current occupational status: disabled Cognitive needs: Yes (Pt would like a cane ) Hearing needs: Yes (?hearing loss mostly from right ear.) Vision needs: Yes (Pt was seen 6 months and exam was good just need readig glasses.) Physical Exam ED Vital Signs: Vital Signs - 24 hr 07/20/23 11:44 07/20/23 13:01 07/20/23 13:10 Temperature 97.7 F 98.2 F Pulse Rate 94 87 98 Respiratory Rate 18 21 H 20 Blood Pressure 137/26 L Pulse Oximetry 97 100 Oxygen Delivery Method Room Air Aerosol Mask Oxygen Flow Rate 5 07/20/23 13:13 07/20/23 14:05 07/20/23 14:11 Temperature 97.4 F Pulse Rate 87 95 Respiratory Rate 20 22 H 16 Blood Pressure 100/70 Pulse Oximetry 96 Oxygen Delivery Method Oxygen Flow Rate BMI result Body Mass Index 28.7 Const General: cooperative, no acute distress, alert and awake Nutritional Appearance: well nourished Orientation/consciousness: patient oriented x3 Limitations: no limitations HENMT Head: Yes normal to inspection and Yes atraumatic Ears: hearing grossly normal bilaterally and external ears normal General nose exam: Normal external nose present, no nasal discharge noted and no epistaxis Face and sinus: Yes normal facial exam, No abrasion and No laceration Mouth: Normal oral and palatal mucosa present, no drooling and no muffled voice Eyes General: appearance normal, both eyes and all related structures Periorbital: periorbital findings normal Eyelids: Yes eyelids normal Conjunctivae: conjunctivae normal Pupils: Equal, round and reactive pupils present EOM: EOMs intact bilaterally Neck Neck: Yes normal visual inspection, Yes full ROM and Yes no lymphadenopathy Chest Chest palpation & inspection: normal inspection of the chest Resp Effort & Inspection: normal respiratory effort and able to speak in complete sentences Auscultation: wheezes scattered wheezes and throughout Cardio Rate: regular rate Rhythm: regular rhythm GI Inspection: Yes normal to inspection Neuro General: patient oriented x3 and moves all extremities Cranial nerves: Yes Equal, round and reactive pupils present Cognition (Neuro): normal cognition Motor exam (neuro): 5/5 motor strength present throughout Sensory Exam: Normal double simultaneous stimulation for sensation Coordination: [id number] test normal Extrem General: Yes normal to inspection, Yes full ROM and Yes capillary refill normal Psych Appearance: grossly normal Mental Status: mental status grossly normal Affect: normal affect Attitude: cooperative Thought process: Normal thought process present Thought content: Normal thought content present Insight: Good insight present (Psych) Course Course Course Narrative: Patient complains of feeling short of breath for past 2 days, she has been wheezing and using her asthma albuterol machine with very limited relief No chest pain no fever Vitals stable, no respiratory distress Chest x-ray EKG labs ordered This is rapid medical exam in triage pending full evaluation by ER provider for full physical and history as well as review of any results and dispo Medications Administered Discontinued Medications Generic Name Dose Route Start Last Admin Trade Name Leonid PRN Reason Stop Dose Admin Levalbuterol HCl 2.5 mg/ 0 mg 07/20/23 12:56 07/20/23 13:00 Ipratropium Harmony 0.5 mg INHALE 07/20/23 12:57 1 dose ONCE ONE Administration Albuterol Sulfate 5 mg/ 0 mg 07/20/23 13:58 07/20/23 14:05 Albuterol/Ipratropium 3 ml INHALE 07/20/23 13:59 5 each ONCE ONE Administration Magnesium Sulfate 2 gm in 50 mls @ 25 mls/hr 07/20/23 12:58 07/20/23 13:32 Magnesium Sulfate/H2o IV 07/20/23 14:57 Infused ONCE ONE Infusion Methylprednisolone Sodium Succinate 60 mg 07/20/23 12:07 07/20/23 12:14 Methylprednisolone Sod Succ 125 Mg/2 Ml Vial IM 07/20/23 12:08 60 mg ONCE ONE Administration Medical Decision Making Medical Decision Making [facility] Narrative: Patient is a 52 year old assigned female at with a history of alcohol abuse and asthma presenting to the emergency department today with an asthma exacerbation. Patient's physical exam showed wheezing throughout all lung romero. Patient's chest x-ray showed no acute process. I explained my physical exam findings as well as all test results to the patient. I answered all questions asked by the patient. Patient received 2 grams of magnesium, multiple breathing treatments, and 60mg of IM Solu-medrol which she stated helped her symptoms significantly. I stressed the importance of the patient taking her medication as prescribed. I stressed the importance of the patient following up with her primary care provider. I stressed the importance of the patient returning to the emergency department immediately if her symptoms were to worsen or if she were to develop any dizziness, shortness of breath, difficulty breathing, chest pain, blurry vision, loss of vision, nausea, vomiting, abdominal pain, fever, chills, back pain, or any other complaints. Patient verbalized agreement and understanding with this treatment plan and discharge. Differential Diagnosis Differential Diagnoses: The differential diagnosis associated with the presentation includes Asthma exacerbation COPD Admission/Observation Consideration of admission/observation: Escalation of care including admission/observation considered Patient would have been admitted to the hospital had her work up had any findings where hospital admission was appropriate and her clinical presentation warranted hospital admission. Lab Data MDM Lab Attestation statement: I reviewed the patient's lab results. My interpretation of these studies and their corresponding values is that they are grossly normal. 07/20/23 11:58 07/20/23 11:58 Labs: Lab Results 07/20/23 07/20/23 Range/Units 11:57 11:58 WBC 11.0 H (4.8-10.8) X10*3/uL RBC 4.36 (4.20-5.50) X10*6/uL Hgb 14.7 (12.0-16.0) g/dl Hct 42.5 (37.0-47.0) % MCV 97.5 (80.0-98.0) fL MCH 33.7 H (27.0-33.0) pg MCHC 34.6 (31.0-35.0) g/dl RDW 14.9 (11.0-16.0) % Plt Count 313 (160-400) X10*3/uL MPV 9.6 (9.4-12.3) fL Immature Gran % (Auto) 0.4 (0.0-0.4) % Neut % (Auto) 62.1 (45-73) % Lymph % (Auto) 28.6 (20-40) % [place] % (Auto) 7.2 (2-11) % Eos % (Auto) 1.2 (0-4) % Baso % (Auto) 0.5 (0-2) % Lymph # (Auto) 3.1 (1.2-4.9) X10*3/uL [place] # (Auto) 0.8 (0.1-1.2) X10*3/uL Eos # (Auto) 0.1 (0.0-0.4) X10*3/uL Baso # (Auto) 0.1 (0.0-0.2) X10*3/uL Abs Immat Gran (auto) 0.04 H (0.00-0.03) X10*3/uL Absolute Neuts (auto) 6.8 (2.0-8.3) x10*3/uL Absolute Nucleated RBC 0.000 (0.0-0.012) X10*3/uL Nucleated RBC % (auto) 0.0 (0.0-0.2) /100WBC Sodium 142 (135-145) mmol/L Potassium 3.8 D (3.3-5.1) mmol/L Chloride 107 (96-108) mmol/L Carbon Dioxide 24 (22-29) mmol/L Anion Gap 15 (12-20) BUN 8 L (9-16) mg/dL Creatinine 0.72 (0.5-1.4) mg/dL Estim Creat Clear Calc 81.2 Estimated GFR > 60 Random Glucose 139 H (60-115) mg/dL Calcium 9.7 D (8.4-10.2) mg/dL Influenza Type A (PCR) NEGATIVE (Negative) Influenza Type B (PCR) NEGATIVE (Negative) RSV RNA Qual (PCR) NEGATIVE (Negative) SARS-CoV-2 RNA (RT-PCR) NEGATIVE (Negative) Independent Interpretation I performed an independent interpretation of an: EKG and Plain X-Ray Interpretation: My interpretation is in agreement with the radiologist's impression of this imaging study. EXAMINATION: XR CHEST CLINICAL INFORMATION: Shortness of breath COMPARISON: Chest radiograph 05/16/2023 TECHNIQUE: 2 views of the chest were obtained. FINDINGS: At the time of the prior study I believe there may have been some mild upper zone redistribution which is no longer case. The heart and pulmonary vessels appear normal. No infiltrates, effusions or lung masses are seen. Small area of platelike atelectasis is present in the right mid lung. XR/XR chest 2V IMPRESSION: No acute intrathoracic disease. Dictated By: Rajendra Allen MD Signed By: Electronically signed by Rajendra Allen MD 07/20/23 1235 Vent. Rate: 096 BPM Atrial Rate: 096 BPM P-R Int: 138 ms QRS Dur: 096 ms QT Int: 384 ms P-R-T Axes: 050 058 072 degrees QTc Int: 485 ms Normal sinus rhythm Normal ECG When compared with ECG of 16-MAY-2023 02:11, No significant change was found Heart rate has decreased Electronically Signed By:MONIQUE BROOKS MD Dictated By: Rafiq Brooks MD Signed By: Electronically signed by Rafiq Brooks MD 07/20/23 1220 Radiology Impression Discussion of test interpretation with radiology: I have reviewed the radiologist's reading. External Record Review External record reviewed: Inpatient record and Office record Chronic Conditions Patient?s care impacted by: Diabetes and Other (asthma) Critical Care Time Critical Care Time Critical Care Time: Yes Total Critical Care Time: 60 Attestation: I spent 60 minutes of Critical Care Time with this patient. This does not include time spent on separately reported billable procedures. Discharge Plan Discharge Clinical Impression: Asthma exacerbation Patient Disposition: Home, Self-Care Instructions: Asthma (DC) Additional Instructions: Follow up with your primary care provider. Return to the emergency department immediately if your symptoms worsen or if you develop any dizziness, shortness of breath, difficulty breathing, chest pain, blurry vision, loss of vision, nausea, vomiting, abdominal pain, fever, chills, back pain, or any other complaints. Prescriptions: New benzonatate 100 mg capsule 100 mg PO BID PRN (Reason: cough) 7 Days Qty: 14 0RF prednisone 20 mg tablet 20 mg PO DAILY 7 Days Qty: 7 0RF No Action ipratropium-albuterol 0.5 mg-3 mg(2.5 mg base)/3 mL solution for nebulization 3 ml inhalation Q4-6H PRN (Reason: shortness of breath or wheezing) Qty: 180 0RF dextroamphetamine-amphetamine 20 mg tablet 10 mg PO BID@0700,1600 (DME) blood-glucose meter [Accu-Chek Guide Glucose Meter] Misc See Rx Instructions .ROUTE .MEDSUPPLY Qty: 1 0RF Rx Instructions: As directed (DME) Accu-Chek Guide test strips Strip See Rx Instructions .ROUTE .MEDSUPPLY Qty: 100 0RF Rx Instructions: [place] [place] lancets [Accu-Chek Multiclix Lancet] Misc See Rx Instructions .ROUTE .MEDSUPPLY Qty: 100 0RF Rx Instructions: As directed multivitamin Tablet 1 tab PO DAILY levalbuterol tartrate [Xopenex HFA] 45 mcg/actuation HFA aerosol inhaler 1 - 2 puff inhalation Q4H PRN (Reason: Wheezing) lisinopril 20 mg tablet 1 tab PO DAILY clonidine HCl 0.1 mg tablet 0.1 mg PO BID dextroamphetamine-amphetamine 20 mg capsule,extended release 24hr 1 cap PO QAM risperidone 1 mg tablet 1 mg PO BEDTIME Trulicity 1.5 mg/0.5 mL pen injector 1.5 mg subcut WE prazosin 1 mg capsule 1 mg PO BEDTIME doxycycline monohydrate 100 mg Capsule 100 mg PO Q12H Qty: 6 0RF prednisone 20 mg tablet 40 mg PO DAILY Qty: 10 0RF Referrals: Philip Purcell MD [Primary Care Provider] - Interventions: ED Discharge Assessment Last Done: 07/20/23 14:57 Discharge Date/Time: 07/20/23 15:01 Print Language: Brazilian
--- NOTE | 2023-07-20 11:48 | ECG_ITS ---
Test Reason : DYSPNEA Blood Pressure : / mmHG Vent. Rate : 096 BPM Atrial Rate : 096 BPM P-R Int : 138 ms QRS Dur : 096 ms QT Int : 384 ms P-R-T Axes : 050 058 072 degrees QTc Int : 485 ms Normal sinus rhythm Normal ECG When compared with ECG of 16-MAY-2023 02:11, No significant change was found Heart rate has decreased Referred By: Michael Yepze Electronically Signed By:MONIQUE BROOKS MD
[2023-07-20 12:05] LABS: MANUAL DIFF FLAG NO
--- NOTE | 2023-07-20 12:05 | PC.NURSE ---
pt reports diff breathing since this am. Did neb treatment at 1045 this am with no significant improvement. Pt is wheezy throughout all lung romero. No apparent distress at this time. Pts blood drawn and swab sent
[2023-07-20 12:09] LABS: Basophils Absolute Auto 0.1 X10*3/uL (0.0-0.2); Basophils Percent Auto 0.5 % (0-2); Eosinophils Absolute Auto 0.1 X10*3/uL (0.0-0.4); Eosinophils Percent Auto 1.2 % (0-4); Hematocrit 42.5 % (37.0-47.0); Hemoglobin 14.7 g/dl (12.0-16.0); Imm Gran Abs Auto 0.04 X10*3/uL (0.00-0.03); Imm Gran Pct Auto 0.4 % (0.0-0.4); Lymphocytes Absolute Auto 3.1 X10*3/uL (1.2-4.9); Lymphocytes Percent Auto 28.6 % (20-40); Mean Corpuscular HGB Conc 34.6 g/dl (31.0-35.0); Mean Corpuscular Hemoglobin 33.7 pg (27.0-33.0); Mean Corpuscular Volume 97.5 fL (80.0-98.0); Mean Platelet Volume 9.6 fL (9.4-12.3); Monocytes Absolute Auto 0.8 X10*3/uL (0.1-1.2); Monocytes Percent Auto 7.2 % (2-11); Neutrophils Absolute Auto 6.8 x10*3/uL (2.0-8.3); Neutrophils Percent Auto 62.1 % (45-73); Platelet Count 313 X10*3/uL (160-400); Red Blood Count 4.36 X10*6/uL (4.20-5.50); Red Cell Distribution Width 14.9 % (11.0-16.0)
[2023-07-20] MEDS: methylPREDNISolone Sod Succ 125 MG/2 ML VIAL 60 MG IM (12:14)
[2023-07-20 12:23] LABS: Anion Gap 15 (12-20); Blood Urea Nitrogen 8 mg/dL (9-16); Calcium 9.7 mg/dL (8.4-10.2); Carbon Dioxide 24 mmol/L (22-29); Chloride 107 mmol/L (96-108); Creatinine Clr Calc Pharmacy 81.2; Estimated Glomerular Filt Rate > 60; Glucose Random 139 mg/dL (60-115); Potassium 3.8 mmol/L (3.3-5.1); Sodium 142 mmol/L (135-145)
[2023-07-20 12:44] LABS: Influenza A PCR NEGATIVE (Negative); Influenza B PCR NEGATIVE (Negative); Resp Syncy Virus RNA Qual PCR NEGATIVE (Negative); SARS COV2 PCR INHOUSE NEGATIVE (Negative)
[2023-07-20] MEDS: levalbuterol HCL 2.5 MG, Ipratropium Bromide 0.5 MG INHALE (13:00)
[2023-07-20 13:01] VITALS: PULSE 87; RESP 21; O2SAT 97
[2023-07-20 13:10] VITALS: PULSE 98; RESP 20; TEMP 36.8; O2SAT 100
[2023-07-20] MEDS: Magnesium Sulfate/H2O 2 GM/50 ML PIGGYBACK IV (13:11)
[2023-07-20 13:13] VITALS: RESP 20
--- NOTE | 2023-07-20 13:30 | PC.NURSE ---
pt completed neb treatment and mag, continues to sound wheezy throughout with minimal improvement. respiratory called by this RN to re-assess patient
[2023-07-20 14:05] VITALS: PULSE 87; RESP 22; O2SAT 94
[2023-07-20] MEDS: Albuterol Sulfate 5 MG, Albuterol/Iprat 2.5/0.5MG 3 ML 3 ML INHALE (14:05)
[2023-07-20 14:11] VITALS: BP 100/70; PULSE 95; RESP 16; TEMP 36.3; O2SAT 96
== END 2023-07-20 15:01 | disposition home or self-care (01) ==
PROVIDERS: Physician Assistant Medical; Emergency Provider Emergency Medicine; PCP Internal Medicine
DX: J45.901 Unspecified asthma with (acute) exacerbation (principal); R06.02 Shortness of breath; Z87.891 Personal history of nicotine dependence; Z20.822 Contact with and (suspected) exposure to COVID-19; Z20.828 Contact with and (suspected) exposure to other viral communicable diseases; Z79.899 Other long term (current) drug therapy
CPT/HCPCS: 0241U; 36415; 71046; 80048; 85025; 93005; 94640; 96365; 96372; 99284; 99285; J2930; J3475

== ENCOUNTER 2023-11-27 10:14 | Emergency (ER) | payer BC, MEDICARE, SELFPAY ==
--- NOTE | ~2023-11-27 | XR_ITS ---
EXAMINATION: XR FOOT, LEFT CLINICAL INFORMATION: Left foot pain. No history of trauma. COMPARISON: None available. TECHNIQUE: AP, lateral, and oblique views of the left foot. FINDINGS: Alignment is anatomic. Joint spaces are maintained. No displaced fracture or dislocation. Plantar calcaneal spur. XR/XR foot LT min 3V IMPRESSION: No acute abnormality.
[2023-11-27 10:26] VITALS: BP 148/89; PULSE 87; RESP 19; TEMP 36.6; O2SAT 98; BMI 28.8
--- NOTE | 2023-11-27 10:58 | ED.GENADULT ---
HPI - General Adult General Chief complaint: Extremity Injury, Lower Stated complaint: lump on l foot pain going up leg Time Seen by Provider: 11/27/23 10:58 Source: patient Mode of arrival: ambulatory Limitations: no limitations History of Present Illness HPI narrative: Patient is a 52 year old assigned female at with a history of DM and COPD presenting to the emergency department today with left foot pain. Patient states that she noticed some swelling on the top of her left foot and feels as though she is walking on a balled up sock. Patient states that the pain is mostly on the pad of her left foot. Patient denies any dizziness, lightheadedness, abdominal pain, nausea, vomiting, fever, chills, blurry vision, double vision, loss of vision, chest pain, difficulty breathing, shortness of breath, back pain, night sweats, pain with urination, increased urinary frequency, increased urinary urgency, blood in her urine or stool, syncope or a near syncopal episode, recent trauma or falls, bowel incontinence, bladder incontinence, bowel retention, bladder retention, or any other complaints at this time. Onset (ago): week(s) Location: left and lower extremity Severity: mild Severity scale (1-10): 3 Quality: aching and dull Relieving factors: none and immobilization Exacerbating factors: movement Associated symptoms: denies other symptoms Treatments prior to arrival: none Related Data Home Medications Medication Instructions Recorded Confirmed dextroamphetamine-amphetamine 20 10 mg PO BID@0700,1600 07/26/20 03/20/23 mg tablet multivitamin 1 tab PO DAILY 11/05/20 03/20/23 levalbuterol tartrate 45 1 - 2 puff inhalation Q4H PRN 04/20/22 03/20/23 mcg/actuation aerosol inhaler Wheezing (Xopenex HFA) lisinopril 20 mg tablet 1 tab PO DAILY 04/20/22 03/20/23 clonidine HCl 0.1 mg tablet 0.1 mg PO BID 03/20/23 03/20/23 dextroamphetamine-amphetamine ER 1 cap PO QAM 03/20/23 03/20/23 20 mg 24hr capsule,extend release dulaglutide 1.5 mg/0.5 mL 1.5 mg subcut WE 03/20/23 03/20/23 [facility] prazosin 1 mg capsule 1 mg PO BEDTIME nightmares 03/20/23 03/20/23 risperidone 1 mg tablet 1 mg PO BEDTIME 03/20/23 03/20/23 Previous Rx's Medication Instructions Recorded blood sugar diagnostic (Accu-Chek #100 ea 10/11/20 Guide test strips) blood-glucose meter (Accu-Chek #1 ea 10/11/20 Guide Glucose Meter) lancets (Accu-Chek Multiclix #100 ea 10/11/20 Lancet) ipratropium 0.5 mg-albuterol 3 mg 3 ml inhalation Q4-6H PRN 12/13/20 (2.5 mg base)/3 mL nebulization shortness of breath or wheezing soln #180 mL doxycycline monohydrate 100 mg 100 mg PO Q12H #6 caps 03/22/23 capsule prednisone 20 mg tablet 40 mg (2 x 20 mg) PO DAILY #10 tabs 03/22/23 benzonatate 100 mg capsule 100 mg PO BID PRN cough 7 days #14 07/20/23 caps prednisone 20 mg tablet 20 mg PO DAILY 7 days #7 tabs 07/20/23 Allergies Allergy/AdvReac Type Severity Reaction Status Date / Time hydromorphone [From DILAUDID] Allergy Severe SEIZURES Verified 11/27/23 10:26 oxycodone [OXYCODONE] Allergy Severe SEIZURES Verified 11/27/23 10:26 vancomycin Allergy Severe Rash Verified 11/27/23 10:26 gabapentin [GABAPENTIN] Allergy Intermediate MUSCLE ACHE Verified 11/27/23 10:26 albuterol Allergy Mild Trouble Verified 11/27/23 10:26 breathing;MDI use only bupropion [From WELLBUTRIN] Allergy Unknown SEIZURES Verified 11/27/23 10:26 phenytoin [Dilantin] Allergy Unknown Unknown Verified 11/27/23 10:26 azithromycin Allergy Hives Verified 11/27/23 10:26 Review of Systems Constitutional: Constitutional: Reports no additional constitutional complaints, Denies chills, Denies fever(s) and Denies night sweats Eyes: Eyes: Reports no additional eye complaints, Denies blurry vision, Denies change in vision, Denies diplopia, Denies eye discharge, Denies loss of vision and Denies eye pain ENT: Denies dizziness Cardiovascular: Cardiovascular: Reports no additional cardiovascular complaints, Denies chest pain, Denies lightheadedness, Denies Loss of Consciousness and Denies dyspnea Respiratory: Respiratory: Reports no additional respiratory complaints and Denies dyspnea Gastrointestinal: Gastrointestinal: Reports no additional gastrointestinal complaints, Denies abdominal pain, Denies melena, Denies hematochezia, Denies change in bowel habits and Denies change in stool character Genitourinary: Genitourinary: Denies hematuria, Denies urinary frequency, Denies dysuria, Denies urinary incontinence, Denies urinary hesitancy and Denies urinary urgency Musculoskeletal: Musculoskeletal: Reports no additional musculoskeletal complaints, Denies numbness and Denies tingling Comments: left foot pain, feels as though left foot is walking on balled up sock Neurologic: Denies dizziness, Denies loss of vision, Denies numbness and Denies tingling Psychiatric: Psychiatric: Reports no additional psychiatric complaints Endocrine: Endocrine: Reports no additional endocrine complaints Hematologic/Lymphatic: Hematologic/Lymphatic: Reports no additional hematologic/lymphatic complaints Allergic/Immunologic: Allergic/Immunologic: Reports no additional allergic/immunologic complaints [facility] Past Medical History Attestation statement: The following information was validated with the patient. Source: old records reviewed and nursing notes reviewed Medical History Bilateral knee pain Bilateral foot pain Colon cancer screening Annual physical exam Acute pneumonia Obese DMII (diabetes mellitus, type 2) Anxiety COPD (chronic obstructive pulmonary disease) Sleep apnea History of suicide attempt Asthma-COPD overlap syndrome HTN (hypertension) ADHD Epilepsy Fibromyalgia Tracheomalacia Cocaine abuse Alcohol abuse Asthma Surgical History Previous section History of cholecystectomy Family History Family History Father No problems noted. 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 a significant other at home: Yes Do you presently have visiting nurse or other home services: No Alcohol intake: never Comment: pt sleeping Patient Tobacco Use Status: Former Tobacco user Tobacco use type: Cigarette Cigarettes Per Day: 25 Years Smoked: 20 Smoked in Last 30 Days: Yes e-Cigarette/Vaping Use: Currently Using Second Hand Smoke Exposure: No Use of substances other than those prescribed or required for medical reasons: No Substance Use Type: Marijuana Advance Directives: Yes Advance Directives on File: Yes Advance Directives Date on File: 11/05/20 Patient : No service: No Current occupational status: disabled Cognitive needs: Yes (Pt would like a cane ) Hearing needs: Yes (?hearing loss mostly from right ear.) Vision needs: Yes (Pt was seen 6 months and exam was good just need readig glasses.) Physical Exam ED Vital Signs: Vital Signs - 24 hr 11/27/23 10:26 11/27/23 12:13 Temperature 98 F 97.8 F Pulse Rate 87 75 Respiratory Rate 19 18 Blood Pressure 148/89 H 115/78 Pulse Oximetry 98 95 Oxygen Delivery Method Room Air Room Air BMI result Body Mass Index 28.8 Const General: cooperative, no acute distress, alert and awake Nutritional Appearance: well nourished Orientation/consciousness: patient oriented x3 Limitations: no limitations HENMT Head: Yes normal to inspection and Yes atraumatic Ears: hearing grossly normal bilaterally and external ears normal General nose exam: Normal external nose present, no nasal discharge noted and no epistaxis Face and sinus: Yes normal facial exam, No abrasion and No laceration Mouth: Normal oral and palatal mucosa present, no drooling and no muffled voice Eyes General: appearance normal, both eyes and all related structures Periorbital: periorbital findings normal Eyelids: Yes eyelids normal Conjunctivae: conjunctivae normal Pupils: Equal, round and reactive pupils present EOM: EOMs intact bilaterally Neck Neck: Yes normal visual inspection, Yes full ROM and Yes no lymphadenopathy Chest Chest palpation & inspection: normal inspection of the chest Resp Effort & Inspection: normal respiratory effort and able to speak in complete sentences GI Inspection: Yes normal to inspection Neuro General: patient oriented x3 and moves all extremities Cranial nerves: Yes Equal, round and reactive pupils present Cognition (Neuro): normal cognition Motor exam (neuro): 5/5 motor strength present throughout Sensory Exam: Normal double simultaneous stimulation for sensation Coordination: [id number] test normal Extrem General: Yes normal to inspection, Yes full ROM and Yes capillary refill normal Psych Appearance: grossly normal Mental Status: mental status grossly normal Affect: normal affect Attitude: cooperative Thought process: Normal thought process present Thought content: Normal thought content present Insight: Good insight present (Psych) Medical Decision Making Medical Decision Making MDM Narrative: Patient is a 52 year old assigned female at with a history of DM and COPD presenting to the emergency department today with left foot pain. Patient's physical exam was unremarkable. Patient's left foot x-ray showed no acute process. I explained my physical exam findings as well as all test results to the patient. I answered all questions asked by the patient. Patient's clinical presentation is most consistent with a neuroma. I stressed the importance of the patient taking her medication as prescribed. I stressed the importance of the patient following up with her primary care provider and an orthopedic provider. I stressed the importance of the patient returning to the emergency department immediately if her symptoms were to worsen or if she were to develop any dizziness, shortness of breath, difficulty breathing, chest pain, blurry vision, loss of vision, nausea, vomiting, abdominal pain, fever, chills, back pain, or any other complaints. Patient verbalized agreement and understanding with this treatment plan and discharge. Differential Diagnosis Differential Diagnoses: The differential diagnosis associated with the presentation includes Foot pain Foot strain Foot sprain Neuroma Admission/Observation Consideration of admission/observation: Escalation of care including admission/observation considered Patient would have been admitted to the hospital had her work up had any findings where hospital admission was appropriate and her clinical presentation warranted hospital admission. Independent Interpretation I performed an independent interpretation of an: Plain X-Ray Interpretation: My interpretation is in agreement with the radiologist's impression of this imaging study. EXAMINATION: XR FOOT, LEFT CLINICAL INFORMATION: Left foot pain. No history of trauma. COMPARISON: None available. TECHNIQUE: AP, lateral, and oblique views of the left foot. FINDINGS: Alignment is anatomic. Joint spaces are maintained. No displaced fracture or dislocation. Plantar calcaneal spur. XR/XR foot LT min 3V IMPRESSION: No acute abnormality. Dictated By: Oneal Christie MD Signed By: Electronically signed by Oneal Christie MD 11/27/23 9821 Radiology Impression Discussion of test interpretation with radiology: I have reviewed the radiologist's reading. Discharge Plan Discharge Clinical Impression: Neuroma Patient Disposition: Home, Self-Care Instructions: Alexis Neuroma (ED) Additional Instructions: Follow up with your primary care provider and an orthopedic provider. Return to the emergency department immediately if your symptoms worsen or if you develop any dizziness, shortness of breath, difficulty breathing, chest pain, blurry vision, loss of vision, nausea, vomiting, abdominal pain, fever, chills, back pain, or any other complaints. Prescriptions: No Action ipratropium-albuterol 0.5 mg-3 mg(2.5 mg base)/3 mL solution for nebulization 3 ml inhalation Q4-6H PRN (Reason: shortness of breath or wheezing) Qty: 180 0RF dextroamphetamine-amphetamine 20 mg tablet 10 mg PO BID@0700,1600 (DME) blood-glucose meter [Accu-Chek Guide Glucose Meter] Misc See Rx Instructions .ROUTE .MEDSUPPLY Qty: 1 0RF Rx Instructions: As directed (DME) Accu-Chek Guide test strips Strip See Rx Instructions .ROUTE .MEDSUPPLY Qty: 100 0RF Rx Instructions: As directed (DME) lancets [Accu-Chek Multiclix Lancet] Misc See Rx Instructions .ROUTE .MEDSUPPLY Qty: 100 0RF Rx Instructions: As directed multivitamin Tablet 1 tab PO DAILY levalbuterol tartrate [Xopenex HFA] 45 mcg/actuation HFA aerosol inhaler 1 - 2 puff inhalation Q4H PRN (Reason: Wheezing) lisinopril 20 mg tablet 1 tab PO DAILY clonidine HCl 0.1 mg tablet 0.1 mg PO BID dextroamphetamine-amphetamine 20 mg capsule,extended release 24hr 1 cap PO QAM risperidone 1 mg tablet 1 mg PO BEDTIME Trulicity 1.5 mg/0.5 mL pen injector 1.5 mg subcut WE prazosin 1 mg capsule 1 mg PO BEDTIME doxycycline monohydrate 100 mg Capsule 100 mg PO Q12H Qty: 6 0RF prednisone 20 mg tablet 40 mg PO DAILY Qty: 10 0RF benzonatate 100 mg capsule 100 mg PO BID PRN (Reason: cough) 7 Days Qty: 14 0RF prednisone 20 mg tablet 20 mg PO DAILY 7 Days Qty: 7 0RF Referrals: [facility] [Provider Group] (Call to establish and follow up with an orthopedic provider.) Philip Purcell MD [Primary Care Provider] - Stand Alone Forms: Work/School Release Interventions: ED Discharge Assessment Last Done: 11/27/23 12:11 Discharge Date/Time: 11/27/23 12:13 Print Language: Divehi
[2023-11-27 12:13] VITALS: BP 115/78; PULSE 75; RESP 18; TEMP 36.6; O2SAT 95
== END 2023-11-27 12:13 | disposition home or self-care (01) ==
PROVIDERS: Emergency Provider Emergency Medicine; PCP Internal Medicine
DX: D36.13 Benign neoplasm of peripheral nerves and autonomic nervous system of lower limb, including hip (principal); E11.9 Type 2 diabetes mellitus without complications; I10 Essential (primary) hypertension
CPT/HCPCS: 73630; 99283; 99284

== ENCOUNTER 2024-01-01 10:24 | Emergency (ER) | payer BC, MEDICARE, SELFPAY ==
--- NOTE | ~2024-01-01 | XR_ITS ---
EXAMINATION: XR CHEST CLINICAL INFORMATION: Cough COMPARISON: 07/20/2023 TECHNIQUE: Frontal view of the chest was obtained. FINDINGS: There is no interval change since previous study in appearance of clear lungs, normal cardiomediastinal silhouette and no evidence of pneumonia or pleural effusion. XR/XR chest 1V IMPRESSION: No active cardiopulmonary disease
[2024-01-01 10:34] VITALS: BP 181/100; PULSE 98; RESP 18; TEMP 36.6; O2SAT 95; BMI 29.3
[2024-01-01 11:24] LABS: Influenza A PCR NEGATIVE (Negative); Influenza B PCR NEGATIVE (Negative); Resp Syncy Virus RNA Qual PCR NEGATIVE (Negative); SARS COV2 PCR INHOUSE NEGATIVE (Negative)
--- NOTE | 2024-01-01 12:40 | ED.ASTHMA ---
HPI - Asthma General Chief Complaint: Asthma Stated Complaint: Asthma Time Seen by Provider: 01/01/24 12:34 Source: patient, RN notes reviewed and old records reviewed Mode of arrival: ambulatory Limitations: no limitations History of Present Illness HPI Narrative: 53-year-old female presents for evaluation of shortness of breath. Patient reports that she just recently was treated for an asthma exacerbation. She stopped taking prednisone 2 days ago. She reports this morning she started with increasing shortness of breath and wheezing Denies any fevers, chills, chest pain Patient has a long history of asthma Denies any leg swelling or history of blood clot Related Data Home Medications ?Medication ?Instructions ?Recorded ?Confirmed dextroamphetamine-amphetamine 20 10 mg PO BID@0700,1600 07/26/20 03/20/23 mg tablet multivitamin 1 tab PO DAILY 11/05/20 03/20/23 levalbuterol tartrate 45 1 - 2 puff inhalation Q4H PRN 04/20/22 03/20/23 mcg/actuation aerosol inhaler Wheezing (Xopenex HFA) lisinopril 20 mg tablet 1 tab PO DAILY 04/20/22 03/20/23 clonidine HCl 0.1 mg tablet 0.1 mg PO BID 03/20/23 03/20/23 dextroamphetamine-amphetamine ER 1 cap PO QAM 03/20/23 03/20/23 20 mg 24hr capsule,extend release dulaglutide 1.5 mg/0.5 mL 1.5 mg subcut WE 03/20/23 03/20/23 subcutaneous pen injector (Trulicity) prazosin 1 mg capsule 1 mg PO BEDTIME nightmares 03/20/23 03/20/23 risperidone 1 mg tablet 1 mg PO BEDTIME 03/20/23 03/20/23 Previous Rx's ?Medication ?Instructions ?Recorded blood sugar diagnostic (Accu-Chek #100 ea 10/11/20 Guide test strips) blood-glucose meter (Accu-Chek #1 ea 10/11/20 Guide Glucose Meter) lancets (Accu-Chek Multiclix #100 ea 10/11/20 Lancet) ipratropium 0.5 mg-albuterol 3 mg 3 ml inhalation Q4-6H PRN 12/13/20 (2.5 mg base)/3 mL nebulization shortness of breath or wheezing soln #180 mL doxycycline monohydrate 100 mg 100 mg PO Q12H #6 caps 03/22/23 capsule prednisone 20 mg tablet 40 mg (2 x 20 mg) PO DAILY #10 tabs 03/22/23 benzonatate 100 mg capsule 100 mg PO BID PRN cough 7 days #14 07/20/23 caps prednisone 20 mg tablet 20 mg PO DAILY 7 days #7 tabs 07/20/23 prednisone 20 mg tablet 40 mg (2 x 20 mg) PO DAILY #10 tabs 01/01/24 Allergies Allergy/AdvReac Type Severity Reaction Status Date / Time hydromorphone [From DILAUDID] Allergy Severe SEIZURES Verified 01/01/24 10:37 oxycodone [OXYCODONE] Allergy Severe SEIZURES Verified 01/01/24 10:37 vancomycin Allergy Severe Rash Verified 01/01/24 10:37 gabapentin [GABAPENTIN] Allergy Intermediate MUSCLE ACHE Verified 01/01/24 10:37 albuterol Allergy Mild Trouble Verified 01/01/24 10:37 breathing;MDI use only bupropion [From WELLBUTRIN] Allergy Unknown SEIZURES Verified 01/01/24 10:37 phenytoin [Dilantin] Allergy Unknown Unknown Verified 01/01/24 10:37 azithromycin Allergy Hives Verified 01/01/24 10:37 Review of Systems Constitutional: Constitutional: Denies body ache(s), Denies chills, Denies fever(s) and Reports malaise Eyes: Eyes: Denies blurry vision ENT: Denies sore throat Cardiovascular: Cardiovascular: Denies chest pain Respiratory: Respiratory: Reports cough and Reports wheezing Gastrointestinal: Gastrointestinal: Denies abdominal pain, Denies nausea and Denies vomiting Musculoskeletal: Musculoskeletal: Denies back pain Integumentary/Breasts: Skin/Breast: Denies rash Allergic/Immunologic: Allergic/Immunologic: Reports wheezing PMFSH Past Medical History Medical History Bilateral knee pain Bilateral foot pain Colon cancer screening Annual physical exam Acute pneumonia Obese DMII (diabetes mellitus, type 2) Anxiety COPD (chronic obstructive pulmonary disease) Sleep apnea History of suicide attempt Asthma-COPD overlap syndrome HTN (hypertension) ADHD Epilepsy Fibromyalgia Tracheomalacia Cocaine abuse Alcohol abuse Asthma Surgical History Previous section History of cholecystectomy Family History Family History Father No problems noted. 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 career consultant to a significant other at home: Yes Do you presently have visiting nurse or other home services: No Alcohol intake: never Comment: pt sleeping Patient Tobacco Use Status: Former Tobacco user Tobacco use type: Cigarette Cigarettes Per Day: 25 Years Smoked: 20 e-Cigarette/Vaping Use: Currently Using Second Hand Smoke Exposure: No Substance Use Type: Marijuana Advance Directives: Yes Advance Directives on File: Yes Advance Directives Date on File: 11/05/20 service: No Current occupational status: disabled Cognitive needs: Yes (Pt would like a cane ) Hearing needs: Yes (?hearing loss mostly from right ear.) Vision needs: Yes (Pt was seen 6 months and exam was good just need readig glasses.) Physical Exam Vital Signs: Vital Signs: Last Vital Signs Temp 97.8 F 01/01/24 10:34 Pulse 98 01/01/24 12:46 Resp 24 H 01/01/24 12:46 BP 181/100 H 01/01/24 10:34 Pulse Ox 95 01/01/24 10:34 O2 Del Method Room Air 01/01/24 10:34 BMI result Body Mass Index 29.3 Const: General: healthy appearing, comfortable, no acute distress, alert and awake Nutritional Appearance: well nourished Orientation/consciousness: patient oriented x3 HEENT: Head: Yes normocephalic and Yes atraumatic Eyes: Eyelids: Yes eyelids normal Conjunctivae: conjunctivae normal Sclerae: sclerae normal Corneas: corneas normal Pupils: Equal, round and reactive pupils present EOM: EOMs intact bilaterally Neck: Neck: Yes full ROM Resp: Other: Slightly increased respiratory effort. There is diffuse inspiratory and expiratory wheeze on exam. The patient is able to speak in full sentences Effort & Inspection: able to speak in complete sentences and not labored Neuro: General: patient oriented x3 Cranial nerves: Yes Equal, round and reactive pupils present and Yes Bilaterally intact EOM present Cognition (Neuro): normal cognition Course Reevaluation(s) Reevaluation #1: Patient re-evaluated, she reports feeling better, her lungs still have some expiratory wheezing but overall improvement from initial evaluation. She is stable for discharge, vital signs remained stable Time: 13:30 Medications Administered Discontinued Medications Generic Name Dose Route Start Last Admin Trade Name Freq PRN Reason Stop Dose Admin Levalbuterol HCl 3.75 mg/ 0 mg 01/01/24 12:38 01/01/24 12:44 Ipratropium Hurst 0.5 mg INHALE 01/01/24 12:39 1 dose ONCE ONE Administration Prednisone 40 mg 01/01/24 12:39 01/01/24 12:54 Prednisone 20 Mg Tablet PO 01/01/24 12:40 40 mg ONCE ONE Administration Medical Decision Making Medical Decision Making MDM Narrative: 53-year-old female with long history of asthma presents for evaluation shortness of breath. She is quite wheezy on exam. Plan for bronchodilator protocol with nebulizers. She will be given a dose of prednisone and discharged with same. Her vital signs are stable. Patient had a chest x-ray that did not show any evidence of infection, her viral swabs were negative Differential Diagnosis Differential Diagnoses: The differential diagnosis associated with the presentation includes Acute asthma exacerbation Bronchitis Influenza COVID-19 Pneumonia Lab Data Labs: Lab Results 01/01/24 Range/Units 10:43 Influenza Type A (PCR) NEGATIVE (Negative) Influenza Type B (PCR) NEGATIVE (Negative) RSV RNA Qual (PCR) NEGATIVE (Negative) SARS-CoV-2 RNA (RT-PCR) NEGATIVE (Negative) Independent Interpretation I performed an independent interpretation of an: Plain X-Ray (No acute infiltrates) Radiology Impression Discussion of test interpretation with radiology: I have reviewed the radiologist's reading. (No acute cardiopulmonary process) Discharge Plan Discharge Clinical Impression: Acute asthma exacerbation Patient Disposition: Home, Self-Care Instructions: Asthma (ED) Additional Instructions: Your chest x-ray was clear. Your viral swabs were negative Take prednisone 40 mg daily for the next 5 days for asthma exacerbation You may also benefit from [id number] allergy medication daily Follow-up with your primary doctor Return for new or worsening symptoms Prescriptions: New prednisone 20 mg tablet 40 mg PO DAILY Qty: 10 0RF No Action ipratropium-albuterol 0.5 mg-3 mg(2.5 mg base)/3 mL solution for nebulization 3 ml inhalation Q4-6H PRN (Reason: shortness of breath or wheezing) Qty: 180 0RF dextroamphetamine-amphetamine 20 mg tablet 10 mg PO BID@0700,1600 (DME) blood-glucose meter [Accu-Chek Guide Glucose Meter] Misc See Rx Instructions .ROUTE .MEDSUPPLY Qty: 1 0RF Rx Instructions: As directed (DME) Accu-Chek Guide test strips Strip See Rx Instructions .ROUTE .MEDSUPPLY Qty: 100 0RF Rx Instructions: As directed (DME) lancets [Accu-Chek Multiclix Lancet] Misc See Rx Instructions .ROUTE .MEDSUPPLY Qty: 100 0RF Rx Instructions: As directed multivitamin Tablet 1 tab PO DAILY levalbuterol tartrate [Xopenex HFA] 45 mcg/actuation HFA aerosol inhaler 1 - 2 puff inhalation Q4H PRN (Reason: Wheezing) lisinopril 20 mg tablet 1 tab PO DAILY clonidine HCl 0.1 mg tablet 0.1 mg PO BID dextroamphetamine-amphetamine 20 mg capsule,extended release 24hr 1 cap PO QAM risperidone 1 mg tablet 1 mg PO BEDTIME Trulicity 1.5 mg/0.5 mL pen injector 1.5 mg subcut WE prazosin 1 mg capsule 1 mg PO BEDTIME doxycycline monohydrate 100 mg Capsule 100 mg PO Q12H Qty: 6 0RF prednisone 20 mg tablet 40 mg PO DAILY Qty: 10 0RF benzonatate 100 mg capsule 100 mg PO BID PRN (Reason: cough) 7 Days Qty: 14 0RF prednisone 20 mg tablet 20 mg PO DAILY 7 Days Qty: 7 0RF Print Language: Citizen Of [place]
[2024-01-01] MEDS: levalbuterol HCL 3.75 MG, Ipratropium Bromide 0.5 MG INHALE (12:44)
[2024-01-01 12:46] VITALS: PULSE 98; RESP 24; O2SAT 95
[2024-01-01] MEDS: predniSONE 20 MG TABLET 40 MG PO (12:54)
[2024-01-01 13:42] VITALS: BP 141/82; PULSE 111; RESP 16; TEMP 37; O2SAT 96
== END 2024-01-01 13:43 | disposition home or self-care (01) ==
PROVIDERS: Emergency Provider Emergency Medicine; PCP Internal Medicine
DX: J45.901 Unspecified asthma with (acute) exacerbation (principal); E11.9 Type 2 diabetes mellitus without complications; I10 Essential (primary) hypertension; Z88.5 Allergy status to narcotic agent; Z88.1 Allergy status to other antibiotic agents; Z88.8 Allergy status to other drugs, medicaments and biological substances
CPT/HCPCS: 0241U; 71045; 94640; 99283; 99284

== ENCOUNTER 2024-03-05 08:46 | Inpatient (IN) | payer BC, MEDICARE, SELFPAY ==
[2024-03-05] VITALS (12 sets, daily range): BP systolic 121–143; BP diastolic 78–92; PULSE 62–87; RESP 18–22; TEMP 36.4–36.7; O2SAT 88–98; BMI 29.5; BMI 29.6
--- NOTE | ~2024-03-05 | XR_ITS ---
EXAMINATION: XR CHEST 2 VIEW CLINICAL INFORMATION: Shortness of breath COMPARISON: 01/01/2024 TECHNIQUE: PA and lateral views of the chest obtained. FINDINGS: Linear opacities are evident at the left lung base and in the right middle lobe. There are no pleural effusions. The cardiomediastinal silhouette is stable. XR/XR chest 2V IMPRESSION: Patchy left base and right middle lobe infiltrate or atelectasis, for which follow-up is recommended to confirm clearing.
--- NOTE | 2024-03-05 09:17 | ED.ASTHMA ---
HPI - Asthma General Chief Complaint: Asthma Stated Complaint: SOB - asthma Time Seen by Provider: 03/05/24 09:17 Source: patient, RN notes reviewed and old records reviewed Mode of arrival: ambulatory Limitations: no limitations History of Present Illness ED Provider: DANIELA REDMOND PA-C HPI Narrative: 53 year old female with pmhx significant for COPD, asthma, etoh use disorder, cocaine use disorder, and fibromyalgia presents to the ED today for evaluation of shortness of breath x3 days. Reports using her inhaler and nebulizer at home more often with minimal relief. Last nebulizer treatment at 0800 this morning. Denies known sick contacts. Denies recent travel or long car rides. Denies fever, chills, sore throat, cough, sputum production, hemoptysis, calf pain/swelling, chest pain, palpitations. Related Data Home Medications ?Medication ?Instructions ?Recorded ?Confirmed dextroamphetamine-amphetamine 20 10 mg PO BID@0700,1600 07/26/20 03/20/23 mg tablet multivitamin 1 tab PO DAILY 11/05/20 03/20/23 levalbuterol tartrate 45 1 - 2 puff inhalation Q4H PRN 04/20/22 03/20/23 mcg/actuation aerosol inhaler Wheezing (Xopenex HFA) lisinopril 20 mg tablet 1 tab PO DAILY 04/20/22 03/20/23 clonidine HCl 0.1 mg tablet 0.1 mg PO BID 03/20/23 03/20/23 dextroamphetamine-amphetamine ER 1 cap PO QAM 03/20/23 03/20/23 20 mg 24hr capsule,extend release dulaglutide 1.5 mg/0.5 mL 1.5 mg subcut WE 03/20/23 03/20/23 subcutaneous pen injector (Trulicity) prazosin 1 mg capsule 1 mg PO BEDTIME nightmares 03/20/23 03/20/23 risperidone 1 mg tablet 1 mg PO BEDTIME 03/20/23 03/20/23 Previous Rx's ?Medication ?Instructions ?Recorded blood sugar diagnostic (Accu-Chek #100 ea 10/11/20 Guide test strips) blood-glucose meter (Accu-Chek #1 ea 10/11/20 Guide Glucose Meter) lancets (Accu-Chek Multiclix #100 ea 10/11/20 Lancet) ipratropium 0.5 mg-albuterol 3 mg 3 ml inhalation Q4-6H PRN 12/13/20 (2.5 mg base)/3 mL nebulization shortness of breath or wheezing soln #180 mL doxycycline monohydrate 100 mg 100 mg PO Q12H #6 caps 03/22/23 capsule prednisone 20 mg tablet 40 mg (2 x 20 mg) PO DAILY #10 tabs 03/22/23 benzonatate 100 mg capsule 100 mg PO BID PRN cough 7 days #14 07/20/23 caps prednisone 20 mg tablet 20 mg PO DAILY 7 days #7 tabs 07/20/23 prednisone 20 mg tablet 40 mg (2 x 20 mg) PO DAILY #10 tabs 01/01/24 Allergies Allergy/AdvReac Type Severity Reaction Status Date / Time hydromorphone [From DILAUDID] Allergy Severe SEIZURES Verified 03/05/24 08:59 oxycodone [OXYCODONE] Allergy Severe SEIZURES Verified 03/05/24 08:59 vancomycin Allergy Severe Rash Verified 03/05/24 08:59 gabapentin [GABAPENTIN] Allergy Intermediate MUSCLE ACHE Verified 03/05/24 08:59 albuterol Allergy Mild Trouble Verified 03/05/24 08:59 breathing;MDI use only bupropion [From WELLBUTRIN] Allergy Unknown SEIZURES Verified 03/05/24 08:59 phenytoin [Dilantin] Allergy Unknown Unknown Verified 03/05/24 08:59 azithromycin Allergy Hives Verified 03/05/24 08:59 Review of Systems Review of Systems: Constitutional: No fever, chills, fatigue, night sweats, weight changes ENT/Mouth: No ear pain, hearing loss, nasal congestion, sinus pain, rhinorrhea, sore throat Eyes: No eye pain, swelling, redness, vision changes, discharge Cardio: No chest pain, palpitations, NEWSOME, orthopnea, peripheral edema Pulm: No cough, sputum, wheezing, dyspnea, hemoptysis, +shortness of breath GI: No nausea, vomiting, hematemesis, abdominal pain, diarrhea, constipation, hematochezia, melena : No irregular bleeding, dysuria, frequency, urgency, hesitancy, hematuria, flank pain, urinary flow changes, urinary incontinence or retention MSK: No back pain, neck pain, joint pain, myalgias Skin: No lesions, rashes Neuro: No weakness, numbness, paresthesias, LOC, dizziness, headache Psych: No anxiety/panic, depression, SI/HI, AH/VH All other systems reviewed and are negative. [facility] Past Medical History Attestation statement: The following information was validated with the patient. Source: old records reviewed and nursing notes reviewed Medical History Bilateral knee pain Bilateral foot pain Colon cancer screening Annual physical exam Acute pneumonia Obese DMII (diabetes mellitus, type 2) Anxiety COPD (chronic obstructive pulmonary disease) Sleep apnea History of suicide attempt Asthma-COPD overlap syndrome HTN (hypertension) ADHD Epilepsy Fibromyalgia Tracheomalacia Cocaine abuse Alcohol abuse Asthma Surgical History Previous section History of cholecystectomy Family History Family History Father No problems noted. 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 critical care nurse practitioner to a significant other at home: Yes Do you presently have visiting nurse or other home services: No Alcohol intake: former Comment: pt sleeping Patient Tobacco Use Status: Former Tobacco user Tobacco use type: Cigarette Cigarettes Per Day: 25 Years Smoked: 20 Smoked in Last 30 Days: No e-Cigarette/Vaping Use: Currently Using Second Hand Smoke Exposure: No Use of substances other than those prescribed or required for medical reasons: Yes Substance Use Type: Marijuana Advance Directives: Yes Advance Directives on File: Yes Advance Directives Date on File: 11/05/20 service: No Current occupational status: disabled Cognitive needs: Yes (Pt would like a cane ) Hearing needs: Yes (?hearing loss mostly from right ear.) Vision needs: Yes (Pt was seen 6 months and exam was good just need readig glasses.) Physical Exam Vital Signs: Vital Signs: Last Vital Signs Temp 97.5 F 03/05/24 08:56 Pulse 71 03/05/24 11:38 Resp 22 H 03/05/24 11:38 BP 143/87 H 03/05/24 08:56 Pulse Ox 91 L 03/05/24 11:13 O2 Del Method Room Air 03/05/24 09:10 BMI result Body Mass Index 29.5 Patient hypertensive, vitals otherwise WNL. Satting 96% on room air Const: General: cooperative, healthy appearing, comfortable and no acute distress Orientation/consciousness: patient oriented x3 Limitations: no limitations HEENT: Head: Yes normal to inspection, Yes No palpable skull fracture present, Yes normocephalic and Yes atraumatic Eyes: General: appearance normal, both eyes and all related structures Conjunctivae: conjunctivae normal Sclerae: sclerae normal Pupils: Equal, round and reactive pupils present Neck: Neck: Yes normal visual inspection, Yes full ROM and Yes no lymphadenopathy Chest: Chest palpation & inspection: normal inspection of the chest and normal palpation of entire chest wall Resp: Other: + mild respiratory distress. increased effort of breathing. no tripoding. speaking in full, clear sentences. audible wheezes. Lungs with diffuse inspiratory and expiratory wheezes. Cardio: Rate: regular rate Rhythm: regular rhythm GI: Inspection: Yes normal to inspection Palpation (GI): Soft to palpation and nontender Skin: General skin exam: no rashes or lesions noted Neuro: General: patient oriented x3 and gait normal Cranial nerves: Yes Equal, round and reactive pupils present Course Course Course Narrative: 1150-- CBC with slight leukocytosis to 11.6 without left shift. No anemia. H&H stable when compared to priors. Chemistry without acute electrolyte abnormality requiring intervention. Random glucose 262. AST and ALT elevated to 52 and 47. Chronic when compared to priors. She tested negative for COVID, flu, RSV. Chest x-ray showing patchy left base and right middle lobe infiltrate or atelectasis. Recommending follow-up imaging to confirm clearance. IV ceftriaxone and doxycycline ordered for treatment. Ambulatory O2 obtained. Patient noted to desat to 91% on room air and began complaining of feeling short of breath. She has received decadron, levalbuterol, and IV magnesium with minimal improvement in symptoms. She continues to have diffuse inspiratory and expiratory wheezes and rhonchi. I did speak to patient who is agreeable to admission. I reached out to hospitalist, Dr. Amezcua, who is agreeable to admission for COPD/ asthma exacerbation with pnuemonia. Mikaela CORTEZ to place admission orders. Medications Administered Generic Name Dose Route Start Last Admin Trade Name Freq PRN Reason Stop Dose Admin Magnesium Sulfate 2 gm in 50 mls @ 25 mls/hr 03/05/24 10:17 03/05/24 10:30 Magnesium Sulfate/H2o IV 03/05/24 12:16 25 mls/hr ONCE ONE Administration Discontinued Medications Generic Name Dose Route Start Last Admin Trade Name Leonid PRN Reason Stop Dose Admin Levalbuterol HCl 3.75 mg/ 0 mg 03/05/24 09:28 03/05/24 09:33 Ipratropium [place] 0.5 mg INHALE 03/05/24 09:29 1 dose ONCE ONE Administration Levalbuterol HCl 3.75 mg/ 0 mg 03/05/24 11:31 03/05/24 11:38 Ipratropium [place] 0.5 mg INHALE 03/05/24 11:32 1 dose ONCE ONE Administration Dexamethasone Sodium Phosphate 10 mg 03/05/24 09:21 03/05/24 09:23 Dexamethasone Sod Phosphate 10 Mg/Ml Vial IVPUSH 03/05/24 09:22 10 mg ONCE ONE Administration Medical Decision Making Medical Decision Making [facility] Narrative: 53 year old female with pmhx significant for COPD, asthma, etoh use disorder, cocaine use disorder, and fibromyalgia presents to the ED today for evaluation of shortness of breath x3 days. Patient tachypneic to 22. Afebrile. Satting 98-96 on room air. On exam, mild respiratory distress. increased effort of breathing. no tripoding. speaking in full, clear sentences. audible wheezes. Lungs with diffuse inspiratory and expiratory wheezes. No peripheral edema noted. No JVD. RRR. Differential diagnosis includes COPD exacerbation, asthma exacerbation, viral syndrome, pneumonia, bronchitis. Unlikely PE, pleural effusion, ACS, arrhytmia. Plan for viral serology, labs, CXR, ED bronch protocol, decadron, and re-evaluation. Differential Diagnosis Differential Diagnoses: The differential diagnosis associated with the presentation includes as above. Admission/Observation Consideration of admission/observation: Escalation of care including admission/observation considered Patient to be admitted to medicine for acute copd/ asthma exacerbation and pneumonia. Mikaela CORTEZ to place admission orders. Consult Healthcare Provider Management of the patient was discussed with: Hospitalist (Dr. Amezcua, Mikaela CORTEZ) Lab Data [facility] Lab Attestation statement: I reviewed the patient's lab results. as above. 03/05/24 09:23 03/05/24 09:23 Labs: Lab Results 03/05/24 Range/Units 09:23 WBC 11.6 H (4.8-10.8) X10*3/uL RBC 4.16 L (4.20-5.50) X10*6/uL Hgb 14.4 (12.0-16.0) g/dl Hct 40.5 (37.0-47.0) % MCV 97.4 (80.0-98.0) fL MCH 34.6 H (27.0-33.0) pg MCHC 35.6 H (31.0-35.0) g/dl RDW 12.8 (11.0-16.0) % Plt Count 262 (160-400) X10*3/uL MPV 9.6 (9.4-12.3) fL Immature Gran % (Auto) 0.5 H (0.0-0.4) % Neut % (Auto) 70.4 (45-73) % Lymph % (Auto) 20.3 (20-40) % [place] % (Auto) 7.5 (2-11) % Eos % (Auto) 0.7 (0-4) % Baso % (Auto) 0.6 (0-2) % Lymph # (Auto) 2.4 (1.2-4.9) X10*3/uL [place] # (Auto) 0.9 (0.1-1.2) X10*3/uL Eos # (Auto) 0.1 (0.0-0.4) X10*3/uL Baso # (Auto) 0.1 (0.0-0.2) X10*3/uL Abs Immat Gran (auto) 0.06 H (0.00-0.03) X10*3/uL Absolute Neuts (auto) 8.2 (2.0-8.3) x10*3/uL Absolute Nucleated RBC 0.000 (0.0-0.012) X10*3/uL Nucleated RBC % (auto) 0.0 (0.0-0.2) /100WBC Sodium 140 (135-145) mmol/L Potassium 3.3 (3.3-5.1) mmol/L Chloride 107 (96-108) mmol/L Carbon Dioxide 21 L (22-29) mmol/L Anion Gap 15 (12-20) BUN 8 L (9-16) mg/dL Creatinine 0.77 (0.5-1.4) mg/dL Estim Creat Clear Calc 76.0 Estimated GFR > 60 Random Glucose 262 H (60-115) mg/dL Calcium 8.4 D (8.4-10.2) mg/dL Magnesium 2.1 (1.6-2.6) mg/dL Total Bilirubin 0.7 (0.0-1.0) mg/dL AST 52 H (5-31) U/L ALT 47 H (0-31) U/L Alkaline Phosphatase 88 (39-117) U/L Total Protein 7.2 (6.5-8.0) g/dL Albumin 3.8 (3.5-5.0) g/dL Influenza Type A (PCR) NEGATIVE (Negative) Influenza Type B (PCR) NEGATIVE (Negative) RSV RNA Qual (PCR) NEGATIVE (Negative) SARS-CoV-2 RNA (RT-PCR) NEGATIVE (Negative) Independent Interpretation I performed an independent interpretation of an: Plain X-Ray Interpretation: CXR with infiltrate noted to left base, agree with radiologist's interpretation. Radiology Impression Discussion of test interpretation with radiology: I have reviewed the radiologist's reading. Radiologist Impression: EXAMINATION: XR CHEST 2 VIEW CLINICAL INFORMATION: Shortness of breath COMPARISON: 01/01/2024 TECHNIQUE: PA and lateral views of the chest obtained. FINDINGS: Linear opacities are evident at the left lung base and in the right middle lobe. There are no pleural effusions. The cardiomediastinal silhouette is stable. XR/XR chest 2V IMPRESSION: Patchy left base and right middle lobe infiltrate or atelectasis, for which follow-up is recommended to confirm clearing. External Record Review External record reviewed: Inpatient record, Office record, Outpatient record, Prior outpatient labs, Prior outpatient radiology, Primary care record and Outside ED record Prescription Management I considered prescription management with: Antibiotic Chronic Conditions Patient?s care impacted by: Other (COPD/ asthma) Social Determinants Patient?s care significantly limited by Social Determinants of Health including: Other Social Determinant of Health Critical Care Time Critical Care Time Critical Care Time: Yes Total Critical Care Time: 33 Attestation: Critical care time in the amount of 33 minutes has been provided to the patient in terms of direct patient care, frequent reevaluation after breathing treatment/ IV mag administration, consultation with hospitalist, review and interpretation of medical data and results, and management of potentially life-threatening conditions. This is all outside of any medical procedures. Discharge Plan Discharge Clinical Impression: Acute exacerbation of COPD with asthma, Community acquired pneumonia Patient Disposition: Admitted As Inpatient Print Language: Palauan
[2024-03-05] MEDS: dexAMETHasone sod phosphate 10 MG/ML VIAL IVPUSH (09:23)
[2024-03-05 09:27] LABS: MANUAL DIFF FLAG NO
[2024-03-05 09:31] LABS: Basophils Absolute Auto 0.1 X10*3/uL (0.0-0.2); Basophils Percent Auto 0.6 % (0-2); Eosinophils Absolute Auto 0.1 X10*3/uL (0.0-0.4); Eosinophils Percent Auto 0.7 % (0-4); Hematocrit 40.5 % (37.0-47.0); Hemoglobin 14.4 g/dl (12.0-16.0); Imm Gran Abs Auto 0.06 X10*3/uL (0.00-0.03); Imm Gran Pct Auto 0.5 % (0.0-0.4); Lymphocytes Absolute Auto 2.4 X10*3/uL (1.2-4.9); Lymphocytes Percent Auto 20.3 % (20-40); Mean Corpuscular HGB Conc 35.6 g/dl (31.0-35.0); Mean Corpuscular Hemoglobin 34.6 pg (27.0-33.0); Mean Corpuscular Volume 97.4 fL (80.0-98.0); Mean Platelet Volume 9.6 fL (9.4-12.3); Monocytes Absolute Auto 0.9 X10*3/uL (0.1-1.2); Monocytes Percent Auto 7.5 % (2-11); Neutrophils Absolute Auto 8.2 x10*3/uL (2.0-8.3); Neutrophils Percent Auto 70.4 % (45-73); Platelet Count 262 X10*3/uL (160-400); Red Blood Count 4.16 X10*6/uL (4.20-5.50); Red Cell Distribution Width 12.8 % (11.0-16.0); White Blood Count 11.6 X10*3/uL (4.8-10.8)
[2024-03-05] MEDS: levalbuterol HCL 3.75 MG, Ipratropium Bromide 0.5 MG INHALE ×2 (09:33→11:38)
[2024-03-05 09:48] LABS: Alanine Aminotransferase 47 U/L (0-31); Albumin Level 3.8 g/dL (3.5-5.0); Alkaline Phosphatase 88 U/L (39-117); Anion Gap 15 (12-20); Aspartate Amino Transferase 52 U/L (5-31); Bilirubin Total 0.7 mg/dL (0.0-1.0); Blood Urea Nitrogen 8 mg/dL (9-16); Calcium 8.4 mg/dL (8.4-10.2); Carbon Dioxide 21 mmol/L (22-29); Chloride 107 mmol/L (96-108); Estimated Glomerular Filt Rate > 60; Glucose Random 262 mg/dL (60-115); Magnesium 2.1 mg/dL (1.6-2.6); Potassium 3.3 mmol/L (3.3-5.1); Sodium 140 mmol/L (135-145); Total Protein 7.2 g/dL (6.5-8.0)
[2024-03-05 10:07] LABS: Influenza A PCR NEGATIVE (Negative); Influenza B PCR NEGATIVE (Negative); Resp Syncy Virus RNA Qual PCR NEGATIVE (Negative); SARS COV2 PCR INHOUSE NEGATIVE (Negative)
[2024-03-05] MEDS: Magnesium Sulfate/H2O 2 GM/50 ML PIGGYBACK IV (10:30)
--- NOTE | 2024-03-05 12:23 | P.HPHOSP_ITS ---
History of Present Illness Date of Service: 03/05/24 Attending physician on admission: Dudley Amezcua Chief Complaint: sob, cough, congestion 52-year-old female with a past medical history of hypertension, hyperlipidemia, diabetes, COPD-not on home oxygen, history of MRSA infection, fibromyalgia, arthritis, anxiety, depression, TEO not on CPAP, and history etoh and cocaine abuse who is a former cigarette smoker with 20 pack year history currently vaping THC presented to the ED for evaluation of sob/wheezing, productive cough with green sputum, and nasal congestion ongoing for 3 days. She has been using her albuterol with increased frequency. No fevers, chills, abd pain, n/v/d, urinary symptoms, lightheadedness, or chest pressures. She does endorse pleuritic chest pain with cough. No known sick contacts. On arrival, afebrile without hypoxia. Did desat to 91% with worsening symptoms with exertion. Mild meukocytosis of 11.6. Renal function and lytes normal. Glucose 262. AST52/ALT 47. Negative for flu, covid, rsv. CXR shows patchy left base and RML infiltrate or atelectasis. In the ED given multiple duonebs and decadron. Review of Systems 2 Review of Systems: Yes all other systems are reviewed and are negative [facility] Medical History Bilateral knee pain Bilateral foot pain Colon cancer screening Annual physical exam Acute pneumonia Obese DMII (diabetes mellitus, type 2) Anxiety COPD (chronic obstructive pulmonary disease) Sleep apnea History of suicide attempt Asthma-COPD overlap syndrome HTN (hypertension) ADHD Epilepsy Fibromyalgia Tracheomalacia Cocaine abuse Alcohol abuse Asthma Family History Father No problems noted. Mother Cervical cancer Mental health disorder Surgical History Previous section History of cholecystectomy Social History Household Members: Spouse and Children Housing: House Are you a primary field care manager to a significant other at home: Yes Do you presently have visiting nurse or other home services: No Alcohol intake: former Comment: pt sleeping Patient Tobacco Use Status: Former Tobacco user Tobacco use type: Cigarette Cigarettes Per Day: 25 Years Smoked: 20 Smoked in Last 30 Days: No e-Cigarette/Vaping Use: Currently Using Second Hand Smoke Exposure: No Use of substances other than those prescribed or required for medical reasons: Yes Substance Use Type: Marijuana Advance Directives: Yes Advance Directives on File: Yes Advance Directives Date on File: 11/05/20 service: No Current occupational status: disabled Cognitive needs: Yes (Pt would like a cane ) Hearing needs: Yes (?hearing loss mostly from right ear.) Vision needs: Yes (Pt was seen 6 months and exam was good just need readig glasses.) Meds Allergies Allergy/AdvReac Type Severity Reaction Status Date / Time hydromorphone [From DILAUDID] Allergy Severe SEIZURES Verified 03/05/24 08:59 oxycodone [OXYCODONE] Allergy Severe SEIZURES Verified 03/05/24 08:59 vancomycin Allergy Severe Rash Verified 03/05/24 08:59 gabapentin [GABAPENTIN] Allergy Intermediate MUSCLE ACHE Verified 03/05/24 08:59 albuterol Allergy Mild Trouble Verified 03/05/24 08:59 breathing;MDI use only bupropion [From WELLBUTRIN] Allergy Unknown SEIZURES Verified 03/05/24 08:59 phenytoin [Dilantin] Allergy Unknown Unknown Verified 03/05/24 08:59 azithromycin Allergy Hives Verified 03/05/24 08:59 Home Medications ?Medication ?Instructions ?Recorded ?Confirmed ?Last Taken ?Type dextroamphetamine-amphetamine 20 10 mg PO BID@0700,1600 07/26/20 03/20/23 03/20/23 History mg tablet multivitamin 1 tab PO DAILY 11/05/20 03/20/23 04/20/22 History levalbuterol tartrate 45 1 - 2 puff inhalation Q4H PRN 04/20/22 03/20/23 04/20/22 History mcg/actuation aerosol inhaler Wheezing (Xopenex HFA) lisinopril 20 mg tablet 1 tab PO DAILY 04/20/22 03/20/23 03/20/23 History clonidine HCl 0.1 mg tablet 0.1 mg PO BID 03/20/23 03/20/23 Unknown History dextroamphetamine-amphetamine ER 1 cap PO QAM 03/20/23 03/20/23 03/20/23 History 20 mg 24hr capsule,extend release dulaglutide 1.5 mg/0.5 mL 1.5 mg subcut WE 03/20/23 03/20/23 Unknown History subcutaneous pen injector (Trulicity) prazosin 1 mg capsule 1 mg PO BEDTIME nightmares 03/20/23 03/20/23 Unknown History risperidone 1 mg tablet 1 mg PO BEDTIME 03/20/23 03/20/23 Unknown History dulaglutide 3 mg/0.5 mL 3 mg subcut QWEEK 03/05/24 Unknown History subcutaneous pen injector (Trulicity) tezepelumab-ekko 210 mg/1.91 mL 3 mg subcut 03/05/24 Unknown History (110 mg/mL) subcutaneous pen injector (Tezspire) Physical Exam 2 Vital Signs and Narrative: Vital Signs: Last Vital Signs Temp 97.5 F 03/05/24 08:56 Pulse 71 03/05/24 11:38 Resp 22 H 03/05/24 11:38 BP 143/87 H 03/05/24 08:56 Pulse Ox 91 L 03/05/24 11:13 O2 Del Method Room Air 03/05/24 09:10 BMI result Body Mass Index 29.5 Constitutional - Awake and Alert, No apparent distress Eyes - PERRLA, EOMI Cardiovascular - S1S2, RRR, No edema Respiratory - Normal lung expansion, Normal respiratory effort, No respiratory distress, diffuse expiratory wheezing R>L Gastrointestinal - NT / ND; +BS; No rebound or guarding Extremities - no calf tenderness bilaterally, no swelling Skin - Warm/Dry Neurological - Alert & oriented x3 Psychological - Appropriate affect Results Labs 03/05/24 09:23 03/05/24 09:23 Labs: Laboratory Results - last 24 hr 03/05/24 09:23 MCV 97.4 MCH 34.6 H MCHC 35.6 H RDW 12.8 Plt Count 262 MPV 9.6 Immature Gran % (Auto) 0.5 H Neut % (Auto) 70.4 Lymph % (Auto) 20.3 [place] % (Auto) 7.5 Eos % (Auto) 0.7 Baso % (Auto) 0.6 Lymph # (Auto) 2.4 [place] # (Auto) 0.9 Eos # (Auto) 0.1 Baso # (Auto) 0.1 Abs Immat Gran (auto) 0.06 H Absolute Neuts (auto) 8.2 Absolute Nucleated RBC 0.000 Nucleated RBC % (auto) 0.0 Anion Gap 15 Estim Creat Clear Calc 76.0 Estimated GFR > 60 Random Glucose 262 H Calcium 8.4 D Magnesium 2.1 Total Bilirubin 0.7 AST 52 H ALT 47 H Alkaline Phosphatase 88 Total Protein 7.2 Albumin 3.8 Influenza Type A (PCR) NEGATIVE Influenza Type B (PCR) NEGATIVE RSV RNA Qual (PCR) NEGATIVE SARS-CoV-2 RNA (RT-PCR) NEGATIVE Imaging Radiologist's Impressions: Impressions Chest X-Ray 03/05/24 10:57 IMPRESSION: Patchy left base and right middle lobe infiltrate or atelectasis, for which follow-up is recommended to confirm clearing. Assessment and Plan (1) Community acquired pneumonia: Status: Acute (2) Acute exacerbation of COPD with asthma: Status: Acute Plan 52-year-old female with a past medical history of hypertension, hyperlipidemia, diabetes, COPD-not on home oxygen, history of MRSA infection, fibromyalgia, arthritis, anxiety, depression, TEO not on CPAP, and history etoh and cocaine abuse who is a former cigarette smoker with 20 pack year history currently vaping THC admitted for COPD exacerbation with pneumonia #Acute COPD exacerbation with acute community acquired pneumonia -Leukocytosis 11.6, tachypneic. No sepsis -CXR with left lower lobe and RML infiltrates -IV ceftriaxone, doxy (initiated 03/05) -RPP pending. Check strep pneumo ag, legionella ag, sputum culture, MRSA nasal swab -iv methylprednisolone 40mg bid -duonebs q4h while awake, prn -symptomatic management -continue maintenance inhalers -follow cbc, cultures # [id number] type 2 diabetes-with hyperglycemia -POC glucose- monitor for steroid induced hyperglycemia -diabetic diet -Admelog on sliding scale # hypertension-reasonably controlled -continue lisinopril, clonidine # mood disorder/ADHD/fibromyalgia -continue home meds # TEO -not on CPAP DVT prophylaxis-Lovenox Full code Patient requires inpatient stay at least 2 midnights for management of acute COPD exacerbation with pneumonia given she continues with diffuse expiratory wheezing and coarse lung sounds and will require scheduled nebulizer treatment, IV steroids, IV antibiotics, and close monitoring for pulmonary decompensation Quality Stroke Does the patient have a stroke diagnosis?: No VTE Prior VTE?: No VTE Risk Level:: Medical - moderate - high VTE Device Contraindication: Treatment Not Indicated VTE Drug Contraindication: N/A - Med Ordered
[2024-03-05] MEDS: cefTRIAXone sodium 1 GM in 0.9 % Sodium Chloride 50 ML IV (12:25)
[2024-03-05 12:53] LABS: Lactic Acid 3.3 mmol/L (0.5-2.0)
[2024-03-05] MEDS: Doxycycline Hyclate 100 MG in 0.9 % Sodium Chloride 250 ML 166.67 MG IV (12:59)
[2024-03-05] MEDS: Enoxaparin Sodium 40 MG/0.4 ML SYRINGE SUBCUT (12:59)
--- NOTE | 2024-03-05 13:02 | PC.NURSE ---
medication administered per provider order. swabs obtained/sent to lab by [employer]. pt supplied w/ cup for urine sample as well as sputum sample. pt waiting for bed assignment at this time. plan of care ongoing. call guerra placed within reach.
[2024-03-05 13:23] LABS: Glucose, Whole Blood 305 mg/dL (60-115)
[2024-03-05] MEDS: Insulin Lispro 100 UNIT/ML 3 ML VIAL SUBCUT ×2 (13:32→18:54)
--- NOTE | 2024-03-05 13:55 | PHA.MEDREC ---
Pharmacy Consult ? Medication Reconciliation Pharmacy has completed the medication reconciliation. Spoke to pt to confirm meds, pt takes Adderall 20mg ER with Adderall 10mg IR in the morning, and Adderall 10mg IR at 4pm. Patient attested to taking lisinopril, prazosin, risperdone. However, patient has not filled any of these medications since 2022, per claim history. Leaving these medications on the med rec since patient attests to taking them.
[2024-03-05 14:12] LABS: Reflex Lactate? Lactic Acid Added
[2024-03-05 14:39] LABS: MRSA Nasal PCR POSITIVE (Negative); SA Nasal PCR POSITIVE (Negative)
[2024-03-05] MEDS: Albuterol/Iprat 2.5/0.5MG 3 ML AMPUL.NEB INHALE ×2 (14:43→20:18)
--- NOTE | 2024-03-05 14:47 | PC.NURSE ---
vss and up to date. pt receiving breathing treatment via RT at this time. denies pain. has no acute complaints. plan of care ongoing. call guerra placed within reach.
[2024-03-05 14:51] LABS: ~Lactic Acid-LAB USE ONLY 3.5 mmol/L (0.5-2.0)
[2024-03-05 14:51] LABS: Adenovirus PCR Not Detected (Not Detect.); Bordetella parapertussis PCR Not Detected (Not Detect.); Bordetella pertussis PCR Not Detected (Not Detect.); Chlamydia pneumoniae PCR Not Detected (Not Detect.); Coronavirus 229E PCR Not Detected (Not Detect.); Coronavirus HKU1 PCR Not Detected (Not Detect.); Coronavirus NL63 PCR Not Detected (Not Detect.); Coronavirus OC43 PCR Not Detected (Not Detect.); Human metapneumovirus PCR Not Detected (Not Detect.); Influenza A PCR Not Detected (Not Detect.); Influenza B PCR Not Detected (Not Detect.); Mycoplasma pneumoniae PCR Not Detected (Not Detect.); Parainfluenza 1 PCR Not Detected (Not Detect.); Parainfluenza 2 PCR Not Detected (Not Detect.); Parainfluenza 3 PCR Not Detected (Not Detect.); Parainfluenza 4 PCR Not Detected (Not Detect.); RSV PCR Not Detected (Not Detect.); Rhino/Enterovirus PCR Detected (Not Detect.)
--- NOTE | 2024-03-05 14:52 | PC.NURSE ---
critical lab value - lactic of 3.5 received at this time. DANA Concepcion notified/aware.
[2024-03-05 16:20] LABS: SARS-CoV-2 PCR Not Detected (Not Detect.)
[2024-03-05] MEDS: Acetaminophen 325 MG TABLET 650 MG PO (16:28)
[2024-03-05] MEDS: 0.9 % Sodium Chloride Flush 3 ML SYRINGE IVFLUSH ×2 (16:28→20:04)
[2024-03-05] MEDS: Benzonatate 100 MG CAPSULE PO (16:28)
[2024-03-05 16:30] LABS: Reflex Lactate? 2 Y
--- NOTE | 2024-03-05 16:30 | PC.NURSE ---
pt verbalizing slight headache as well as a nagging cough. prn medication utilized. effectiveness pending.
[2024-03-05] MEDS: Amphetamine Mixed Salts 20 MG TABLET 10 MG PO (16:34)
--- NOTE | 2024-03-05 17:53 | PC.NURSE ---
this RN keeps receiving critical lactic levels and notifying provider. per admitting provider - elevated lactic's are related to albuterol treatments. reflex orders can be discontinued at this time.
[2024-03-05 18:03] LABS: Glucose, Whole Blood 327 mg/dL (60-115)
--- NOTE | 2024-03-05 18:31 | PC.NURSE ---
admission worksheet complete. transport notified/aware.
[2024-03-05] MEDS: 0.9 % Sodium Chloride 1,000 ML 999 ML IV (18:54)
[2024-03-05] MEDS: methylPREDNISolone Sod Succ 40 MG/ML VIAL IVPUSH (20:01)
[2024-03-05] MEDS: risperiDONE 1 MG TABLET PO (20:01)
[2024-03-05] MEDS: Prazosin HCL 1 MG CAPSULE PO (20:01)
[2024-03-05] MEDS: cloNIDine HCL 0.1 MG TABLET PO (20:02)
[2024-03-06] VITALS (10 sets, daily range): BP systolic 126–130; BP diastolic 62–78; PULSE 68–83; RESP 15–18; TEMP 36–36.6; O2SAT 93–100
[2024-03-06] MEDS: Doxycycline Hyclate 100 MG in 0.9 % Sodium Chloride 250 ML 166.67 MG IV ×2 (00:46→12:48)
[2024-03-06 05:50] LABS: Basophils Percent Auto 0.2 % (0-2); Hematocrit 37.7 % (37.0-47.0); Hemoglobin 13.5 g/dl (12.0-16.0); Imm Gran Abs Auto 0.15 X10*3/uL (0.00-0.03); Imm Gran Pct Auto 0.9 % (0.0-0.4); Lymphocytes Percent Auto 6.1 % (20-40); MANUAL DIFF FLAG SCAN; Mean Corpuscular HGB Conc 35.8 g/dl (31.0-35.0); Mean Corpuscular Volume 97.7 fL (80.0-98.0); Monocytes Absolute Auto 0.4 X10*3/uL (0.1-1.2); Monocytes Percent Auto 2.5 % (2-11); Neutrophils Absolute Auto 15.3 x10*3/uL (2.0-8.3); Neutrophils Percent Auto 90.3 % (45-73); Platelet Count 251 X10*3/uL (160-400); Red Blood Count 3.86 X10*6/uL (4.20-5.50); Red Cell Distribution Width 12.8 % (11.0-16.0); SCAN SMEAR FLAG 1
[2024-03-06 06:06] LABS: Anion Gap 14 (12-20); Blood Urea Nitrogen 13 mg/dL (9-16); Calcium 8.9 mg/dL (8.4-10.2); Carbon Dioxide 19 mmol/L (22-29); Chloride 110 mmol/L (96-108); Creatinine Clr Calc Pharmacy 80.3; Estimated Glomerular Filt Rate > 60; Glucose Random 312 mg/dL (60-115); Potassium 4.4 mmol/L (3.3-5.1); Sodium 139 mmol/L (135-145)
[2024-03-06 06:10] LABS: SLIDE REVIEW VERIFIED
[2024-03-06 07:23] LABS: Glucose, Whole Blood 279 mg/dL (60-115)
[2024-03-06] MEDS: Amphetamine Mixed Salts 20 MG TABLET 10 MG PO ×2 (08:13→16:38)
[2024-03-06] MEDS: methylPREDNISolone Sod Succ 40 MG/ML VIAL IVPUSH ×2 (08:13→20:40)
[2024-03-06] MEDS: Insulin Lispro 100 UNIT/ML 3 ML VIAL SUBCUT ×4 (08:13→20:41)
[2024-03-06] MEDS: lisinopriL 20 MG TABLET PO (08:13)
[2024-03-06] MEDS: Dextroamphetamine/Amphetamine XR 10 MG CAP.ER.24H 20 MG PO (08:14)
[2024-03-06] MEDS: 0.9 % Sodium Chloride Flush 3 ML SYRINGE IVFLUSH ×2 (08:14→16:40)
[2024-03-06] MEDS: cloNIDine HCL 0.1 MG TABLET PO ×2 (08:14→20:41)
[2024-03-06] MEDS: Albuterol/Iprat 2.5/0.5MG 3 ML AMPUL.NEB INHALE ×4 (08:26→19:35)
[2024-03-06 11:33] LABS: Glucose, Whole Blood 295 mg/dL (60-115)
--- NOTE | 2024-03-06 11:50 | MHC.CM.PN ---
PT LIVES WITH [facility] IS INDEPENDENT WILL NOT NEED SERVCES WHEN DCD
[2024-03-06] MEDS: cefTRIAXone sodium 1 GM in 0.9 % Sodium Chloride 50 ML IV (12:13)
--- NOTE | 2024-03-06 12:20 | P.PNIM_ITS ---
Subjective Subjective Date of Service: 03/06/24 Interval History: Being followed for COPD exacerbation, Feeling better this morning, complaining of less shortness of breath and chest tightness, no fevers, no chills, no other acute issues overnight. Review of Systems All other system reviewed and are negative. Physical Exam 2 Vital Signs: Vital Signs: Last Vital Signs Temp 96.8 F 03/06/24 07:15 Pulse 74 03/06/24 11:33 Resp 16 03/06/24 11:33 BP 128/72 03/06/24 08:14 Pulse Ox 94 03/06/24 07:15 O2 Del Method Room Air 03/06/24 07:15 BMI result Body Mass Index 29.6 Const: Other: General awake alert x3, in no acute distress. Neck supple no JVD. CVS regular rate rhythm, Respiratory lungs bilateral expiratory rhonchi, no crackles, no use of accessory muscles Gastrointestinal abdomen soft, non tender, bowel sounds audible, no guarding , no rigidity. Extremities no edema. Neuro non focal Skin no rash Psych appropriate affect Objective Data Active Medications Acetaminophen (Acetaminophen 325 Mg Tablet) 650 mg PO Q6H PRN PRN Reason: Pain, Mild (Pain Scale 1-3), fever or headache Last Admin: 03/05/24 16:28 Dose: 650 mg Documented By: WOOD Albuterol/Ipratropium (Albuterol/Iprat 2.5/0.5mg 3 Ml Ampul.Neb) 3 ml INHALE RQ4H WHILE AWAKE [facility] Last Admin: 03/06/24 11:31 Dose: 3 ml Documented By: AYALA Albuterol/Ipratropium (Albuterol/Iprat 2.5/0.5mg 3 Ml Ampul.Neb) 3 ml INHALE RQ4H WHILE AWAKE PRN PRN Reason: Shortness of Breath/Wheezing Amphetamine/Dextroamphetamine (Amphetamine Mixed Salts 20 Mg Tablet) 10 mg PO BID@0700,1600 [facility] Last Admin: 03/06/24 08:13 Dose: 10 mg Documented By: TOI Amphetamine/Dextroamphetamine (Dextroamphetamine/Amphetamine Xr 10 Mg Cap.Er.24h) 20 mg PO DAILY@0700 [facility] Last Admin: 03/06/24 08:14 Dose: 20 mg Documented By: TOI Benzonatate (Benzonatate 100 Mg Capsule) 100 mg PO BID PRN PRN Reason: cough Last Admin: 03/05/24 16:28 Dose: 100 mg Documented By: WOOD Calcium Carbonate (Calcium Carbonate 750 Mg Tab.Chew) 750 mg PO Q4H PRN PRN Reason: Heartburn Clonidine HCl (Clonidine Hcl 0.1 Mg Tablet) 0.1 mg PO BID [facility]; Protocol Last Admin: 03/06/24 08:14 Dose: 0.1 mg Documented By: TOI Diphenhydramine HCl (Diphenhydramine Hcl 25 Mg Capsule) 25 mg PO TID PRN PRN Reason: Allergy Symptoms Enoxaparin Sodium (Enoxaparin Sodium 40 Mg/0.4 Ml Syringe) 40 mg SUBCUT Q24H [facility] Last Admin: 03/05/24 12:59 Dose: 40 mg Documented By: WOOD Glucose (Glucose Gel 15 Gm Gel..Gram.) 15 gm PO Q15M PRN; Protocol PRN Reason: per Hypoglycemia Standing Ord. Guaifenesin (Guaifenesin 200 Mg/10 Ml 10 Ml Liquid) 10 ml PO Q4H PRN PRN Reason: Cough Ceftriaxone Sodium 1 gm/ (Sodium Chloride) 50 mls @ 100 mls/hr IV Q24H [facility] [place] Last Admin: 03/06/24 12:13 Dose: 100 mls/hr Documented By: TOI Doxycycline Hyclate 100 mg/ (Sodium Chloride) 250 mls @ 166.67 mls/hr IV Q12H [facility] [place] Last Infusion: 03/06/24 02:19 Dose: Infused Documented By: EULOGIO Dextrose (D10) 250 mls @ 750 mls/hr IV Q15M PRN; Protocol PRN Reason: per Hypoglycemia Standing Ord. Insulin Human Lispro (Insulin Lispro 100 Unit/Ml 3 Ml Vial) 0 unit SUBCUT QIDACHS [facility]; Protocol Last Admin: 03/06/24 12:13 Dose: 6 unit Documented By: TOI Lisinopril (Lisinopril 20 Mg Tablet) 20 mg PO DAILY [facility]; Protocol Last Admin: 03/06/24 08:13 Dose: 20 mg Documented By: TOI Magnesium Hydroxide (Milk Of Magnesia 30 Ml Oral.Susp) 30 ml PO DAILY PRN PRN Reason: Constipation Methylprednisolone Sodium Succinate (Methylprednisolone Sod Succ 40 Mg/Ml Vial) 40 mg IVPUSH Q12H [facility] Last Admin: 03/06/24 08:13 Dose: 40 mg Documented By: TOI Non-Formulary Medication (Levalbuterol Tartrate [Xopenex Hfa]) 2 puff INHALE Q4H PRN PRN Reason: Wheezing Ondansetron HCl (Ondansetron Hcl 4 Mg/2 Ml Vial) 4 mg IVPUSH Q8H PRN PRN Reason: Nausea and Vomiting Prazosin HCl (Prazosin Hcl 1 Mg Capsule) 1 mg PO BEDTIME [facility]; Protocol Last Admin: 03/05/24 20:01 Dose: 1 mg Documented By: EULOGIO Risperidone (Risperidone 1 Mg Tablet) 1 mg PO BEDTIME [facility] Last Admin: 03/05/24 20:01 Dose: 1 mg Documented By: EULOGIO Sodium Chloride (0.9 % Sodium Chloride Flush 3 Ml Syringe) 3 ml IVFLUSH QSHIFT [facility] [place] Last Admin: 03/06/24 08:14 Dose: 3 ml Documented By: TOI Labs 03/06/24 05:26 03/06/24 05:26 Labs: Laboratory Results - last 24 hr 03/05/24 03/05/24 03/05/24 12:07 13:07 13:20 MCV MCH MCHC RDW Plt Count MPV Immature Gran % (Auto) Neut % (Auto) Lymph % (Auto) [place] % (Auto) Eos % (Auto) Baso % (Auto) Lymph # (Auto) [place] # (Auto) Eos # (Auto) Baso # (Auto) Abs Immat Gran (auto) Absolute Neuts (auto) Absolute Nucleated RBC Nucleated RBC % (auto) Smear Tech's Comments Anion Gap Estim Creat Clear Calc Estimated GFR POC Glucose 305 H Random Glucose Lactic Acid 3.3 H* Lactic Acid F/U @ 2Hr Lactic Acid F/U @ 4Hr Calcium Nasal Screen MRSA (PCR) POSITIVE A Nasal S. aureus Screen POSITIVE A Nasal MRSA/S.aureus Interp SEE NOTE Respiratory Panel Dominguez See Note Adenovirus (Rapid PCR) Not Detected B.pert (TEM-PCR) Not Detected B.parapertussis DNA PCR Not Detected C. pneumoniae DNA (PCR) Not Detected Coronavirus OC43 (PCR) Not Detected Coronavirus HKU1 (PCR) Not Detected Coronavirus 229E (PCR) Not Detected Coronavirus NL63 (PCR) Not Detected Human Metapneumovir PCR Not Detected Influenza A (RT-PCR) Not Detected Influenza B (RT-PCR) Not Detected M. pneumoniae (PCR) Not Detected Parainfluenza 1 (PCR) Not Detected Parainfluenza 2 (PCR) Not Detected Parainfluenza 3 (PCR) Not Detected Parainfluenza 4 (PCR) Not Detected RSV (PCR) Not Detected Entero/Rhino (PCR) Detected A SARS-CoV-2 RNA (RT-PCR) Not Detected 03/05/24 03/05/24 03/05/24 14:27 17:31 17:59 MCV MCH MCHC RDW Plt Count MPV Immature Gran % (Auto) Neut % (Auto) Lymph % (Auto) [place] % (Auto) Eos % (Auto) Baso % (Auto) Lymph # (Auto) [place] # (Auto) Eos # (Auto) Baso # (Auto) Abs Immat Gran (auto) Absolute Neuts (auto) Absolute Nucleated RBC Nucleated RBC % (auto) Smear Tech's Comments Anion Gap Estim Creat Clear Calc Estimated GFR POC Glucose 327 H Random Glucose Lactic Acid Lactic Acid F/U @ 2Hr 3.5 H* Lactic Acid F/U @ 4Hr 6.0 H* Calcium Nasal Screen MRSA (PCR) Nasal S. aureus Screen Nasal MRSA/S.aureus Interp Respiratory Panel Dom[place]uez Adenovirus (Rapid PCR) B.pert (TEM-PCR) B.parapertussis DNA PCR C. pneumoniae DNA (PCR) Coronavirus OC43 (PCR) Coronavirus HKU1 (PCR) Coronavirus 229E (PCR) Coronavirus NL63 (PCR) Human Metapneumovir PCR Influenza A (RT-PCR) Influenza B (RT-PCR) M. pneumoniae (PCR) Parainfluenza 1 (PCR) Parainfluenza 2 (PCR) Parainfluenza 3 (PCR) Parainfluenza 4 (PCR) RSV (PCR) Entero/Rhino (PCR) SARS-CoV-2 RNA (RT-PCR) 03/06/24 03/06/24 03/06/24 05:26 07:19 11:29 MCV 97.7 MCH 35.0 H MCHC 35.8 H RDW 12.8 Plt Count 251 MPV 10.0 Immature Gran % (Auto) 0.9 H Neut % (Auto) 90.3 H Lymph % (Auto) 6.1 L [place] % (Auto) 2.5 Eos % (Auto) 0.0 Baso % (Auto) 0.2 Lymph # (Auto) 1.0 L [place] # (Auto) 0.4 Eos # (Auto) 0.0 Baso # (Auto) 0.0 Abs Immat Gran (auto) 0.15 H Absolute Neuts (auto) 15.3 H Absolute Nucleated RBC 0.000 Nucleated RBC % (auto) 0.0 Smear Tech's Comments VERIFIED Anion Gap 14 Estim Creat Clear Calc 80.3 Estimated GFR > 60 POC Glucose 279 H 295 H Random Glucose 312 H Lactic Acid Lactic Acid F/U @ 2Hr Lactic Acid F/U @ 4Hr Calcium 8.9 Nasal Screen MRSA (PCR) Nasal S. aureus Screen Nasal MRSA/S.aureus Interp Respiratory Panel Dom[place] Adenovirus (Rapid PCR) B.pert (TEM-PCR) B.parapertussis DNA PCR C. pneumoniae DNA (PCR) Coronavirus OC43 (PCR) Coronavirus HKU1 (PCR) Coronavirus 229E (PCR) Coronavirus NL63 (PCR) Human Metapneumovir PCR Influenza A (RT-PCR) Influenza B (RT-PCR) M. pneumoniae (PCR) Parainfluenza 1 (PCR) Parainfluenza 2 (PCR) Parainfluenza 3 (PCR) Parainfluenza 4 (PCR) RSV (PCR) Entero/Rhino (PCR) SARS-CoV-2 RNA (RT-PCR) Microbiology Microbiology Results: Microbiology 03/06/24 Unknown Gram Stain - Final Sputum - Expectorated Assessment and Plan (1) Acute exacerbation of COPD with asthma: Status: Acute (2) Community acquired pneumonia: Status: Acute Plan 52-year-old female with a past medical history of hypertension, hyperlipidemia, diabetes, COPD-not on home oxygen, history of MRSA infection, fibromyalgia, arthritis, anxiety, depression, TEO not on CPAP, and history etoh and cocaine abuse who is a former cigarette smoker with 20 pack year history currently vaping THC admitted for COPD exacerbation with pneumonia #Acute COPD exacerbation with acute community acquired pneumonia -less shortness of breath, no hypoxia -CXR with left lower lobe and RML infiltrates -continue IV ceftriaxone, doxy (initiated 03/05) -RPP positive for entero/rhino, strep pneumo ag, legionella ag, pending ,, MRSA nasal swab positive -continue iv methylprednisolone 40mg bid,duonebs q4h while awake, prn -continue maintenance inhalers -elevated WBC due to steroids # [id number] type 2 diabetes-with hyperglycemia likely due to steroids -continue diabetic diet and Admelog on sliding scale # hypertension-reasonably controlled -continue lisinopril, clonidine # mood disorder/ADHD/fibromyalgia -continue home meds # TEO -not on CPAP DVT prophylaxis-Lovenox Full code Patient requires continued inpatient hospitalization for management of acute COPD exacerbation with pneumonia requiring IV antibiotic, IV steroids and updraft , treatment can not be provided in less acute setting. Quality Stroke Does the patient have a stroke diagnosis?: No VTE Prior VTE?: No VTE Risk Level:: Medical - moderate - high VTE Device Contraindication: Treatment Not Indicated VTE Drug Contraindication: N/A - Med Ordered
[2024-03-06] MEDS: Enoxaparin Sodium 40 MG/0.4 ML SYRINGE SUBCUT (12:48)
[2024-03-06 16:14] LABS: Glucose, Whole Blood 342 mg/dL (60-115)
[2024-03-06 20:27] LABS: Glucose, Whole Blood 307 mg/dL (60-115)
[2024-03-06] MEDS: Prazosin HCL 1 MG CAPSULE PO (20:40)
[2024-03-06] MEDS: risperiDONE 1 MG TABLET PO (20:41)
[2024-03-07] MEDS: Doxycycline Hyclate 100 MG in 0.9 % Sodium Chloride 250 ML 166.67 MG IV (01:17)
[2024-03-07 03:06] VITALS: BP 170/82; PULSE 68; RESP 16; TEMP 36.4; O2SAT 94
[2024-03-07 06:13] VITALS: BP 122/72
[2024-03-07 07:44] VITALS: BP 140/76; PULSE 66; RESP 16; TEMP 36; O2SAT 95
[2024-03-07 07:51] LABS: Glucose, Whole Blood 264 mg/dL (60-115)
[2024-03-07 08:09] VITALS: PULSE 72; RESP 18; O2SAT 99
[2024-03-07] MEDS: Albuterol/Iprat 2.5/0.5MG 3 ML AMPUL.NEB INHALE (08:09)
[2024-03-07 08:13] VITALS: BP 140/76
[2024-03-07] MEDS: Dextroamphetamine/Amphetamine XR 10 MG CAP.ER.24H 20 MG PO (08:13)
[2024-03-07] MEDS: lisinopriL 20 MG TABLET PO (08:13)
[2024-03-07 08:14] VITALS: BP 140/76
[2024-03-07] MEDS: Amphetamine Mixed Salts 20 MG TABLET 10 MG PO (08:14)
[2024-03-07] MEDS: Insulin Lispro 100 UNIT/ML 3 ML VIAL SUBCUT (08:14)
[2024-03-07] MEDS: methylPREDNISolone Sod Succ 40 MG/ML VIAL IVPUSH (08:14)
[2024-03-07] MEDS: cloNIDine HCL 0.1 MG TABLET PO (08:14)
[2024-03-07] MEDS: 0.9 % Sodium Chloride Flush 3 ML SYRINGE IVFLUSH (08:15)
--- NOTE | 2024-03-07 09:59 | P.DS_ITS ---
DS: Providers Provider Date of Service: 03/07/24 Date of admission: 03/05/24 12:18 Primary care physician: Philip Purcell MD DS: Diagnosis Discharge Diagnosis (1) Acute exacerbation of COPD with asthma: Status: Acute (2) Community acquired pneumonia: Status: Acute DS: Summary Hospital Course Hospital Course: History of present illness: Date of Service: 03/05/24 Attending physician on admission: Dudley Amezcua Chief Complaint: sob, cough, congestion 52-year-old female with a past medical history of hypertension, hyperlipidemia, diabetes, COPD-not on home oxygen, history of MRSA infection, fibromyalgia, arthritis, anxiety, depression, TEO not on CPAP, and history etoh and cocaine abuse who is a former cigarette smoker with 20 pack year history currently vaping THC presented to the ED for evaluation of sob/wheezing, productive cough with green sputum, and nasal congestion ongoing for 3 days. She has been using her albuterol with increased frequency. No fevers, chills, abd pain, n/v/d, urinary symptoms, lightheadedness, or chest pressures. She does endorse pleuritic chest pain with cough. No known sick contacts. On arrival, afebrile without hypoxia. Did desat to 91% with worsening symptoms with exertion. Mild meukocytosis of 11.6. Renal function and lytes normal. Glucose 262. AST52/ALT 47. Negative for flu, covid, rsv. CXR shows patchy left base and RML infiltrate or atelectasis. In the ED given multiple duonebs and decadron. Hospital course: 52-year-old female with a past medical history of hypertension, hyperlipidemia, diabetes, COPD-not on home oxygen, history of MRSA infection, fibromyalgia, a rthritis, anxiety, depression, TEO not on CPAP, and history etoh and cocaine abuse who is a former cigarette smoker with 20 pack year history currently vaping THC admitted for acute COPD exacerbation with acute community-acquired pneumonia, CXR showed left lower lobe and RML infiltrates She was treated with IV ceftriaxone and doxycycline, updraft treatment and IV steroids, respiratory viral panel positive for entero and rhino virus, MRSA nasal swab positive-, patient responded due above treatment oxygenation 94% on room air ambulating without shortness of breath, chest tightness or dizziness t herefore being discharged home to finish 5 day course of antibiotics and on short course of prednisone she is recommended to continue home inhalers. In regard to [id number] type 2 diabetes patient noted to be hyperglycemic likely due to steroids recommend to continue diabetic diet and insulin. For Hypertension-continue lisinopril, clonidine Mood disorder/ADHD/fibromyalgia -continue home meds TEO not on CPAP Time Attestation Discharge Coordination Time (in mins): 36 Quality: Safe Use of Opioids Does Pt have an Active Cancer Diagnosis on the Problem List?: No Quality: Stroke Does the patient have a stroke diagnosis?: No Physical Exam Vital Signs: Vital Signs: Last Vital Signs Temp 96.8 F 03/07/24 07:44 Pulse 72 03/07/24 08:09 Resp 18 03/07/24 08:09 BP 140/76 H 03/07/24 08:14 Pulse Ox 95 03/07/24 07:44 O2 Del Method Room Air 03/07/24 07:44 BMI result Body Mass Index 29.6 Const: Other: General awake alert x3, in no acute distress. Neck supple no JVD. CVS regular rate rhythm, Respiratory lungs few expiratory wheeze (seems chronic), no crackles, no use of accessory muscles Gastrointestinal abdomen soft, non tender, bowel sounds audible, no guarding , no rigidity. Extremities no edema. Neuro non focal Skin no rash Psych appropriate affect DS: Data Data Completed and Pending Completed studies during hospitalization [Text1]: Procedures Detoxification Services for Substance Abuse Treatment (10/08/20) Labs on day of discharge: Laboratory Results - last 24 hr 03/06/24 03/06/24 03/06/24 11:29 16:04 19:48 POC Glucose 295 H 342 H 307 H 03/07/24 07:46 POC Glucose 264 H Preliminary micro results at discharge 03/06/24 Unknown Sputum Culture - Preliminary Sputum - Expectorated Culture in progress. 03/05/24 12:18 Blood Culture - Preliminary Blood - Venous No growth after 24 hours. 03/05/24 12:08 Blood Culture - Preliminary Blood - Venous No growth after 24 hours. Discharge Plan Discharge Anticipated Discharge Date/Time: 03/07/24 09:51 Patient Disposition: Home, Self-Care Discharge Diagnosis: Acute COPD exacerbation with acute community-acquired pneumonia Referrals: Philip Purcell MD [Primary Care Provider] - 1 Week Discharge Medications: New doxycycline monohydrate 100 mg capsule 100 mg PO BID Qty: 7 0RF prednisone 20 mg tablet 20 mg PO DAILY Qty: 5 0RF Rx Instructions: Take with food Continued dextroamphetamine-amphetamine 20 mg tablet 10 mg PO BID@0700,1600 (DME) Accu-Chek Guide test strips Strip See Rx Instructions .ROUTE .MEDSUPPLY Qty: 100 0RF Rx Instructions: As directed (DME) lancets [Accu-Chek Multiclix Lancet] Misc See Rx Instructions .ROUTE .MEDSUPPLY Qty: 100 0RF Rx Instructions: As directed levalbuterol tartrate [Xopenex HFA] 45 mcg/actuation HFA aerosol inhaler 2 puff inhalation Q4H PRN (Reason: Wheezing) lisinopril 20 mg tablet 1 tab PO DAILY clonidine HCl 0.1 mg tablet 0.1 mg PO BID dextroamphetamine-amphetamine 20 mg capsule,extended release 24hr 1 cap PO DAILY@0700 risperidone 1 mg tablet 1 mg PO BEDTIME prazosin 1 mg capsule 1 mg PO BEDTIME benzonatate 100 mg capsule 100 mg PO BID PRN (Reason: cough) 7 Days Qty: 14 0RF Trulicity 3 mg/0.5 mL pen injector 3 mg subcut TH@0900 Tezspire 210 mg/1.91 mL (110 mg/mL) pen injector 3 mg subcut Q4W ipratropium-albuterol 0.5 mg-3 mg(2.5 mg base)/3 mL solution for nebulization 3 ml inhalation Q4H PRN (Reason: shortness of breath or wheezing) diphenhydramine HCl [Benadryl] 25 mg Capsule 25 mg PO TID PRN (Reason: Allergy Symptoms) ibuprofen 200 mg Tablet 400 mg PO Q8H PRN (Reason: Pain) No Action (DME) blood-glucose meter [Accu-Chek Guide Glucose Meter] Misc See Rx Instructions .ROUTE .MEDSUPPLY Qty: 1 0RF Rx Instructions: As directed Discharge Orders: Discharge Order (Routine); Ordered 03/07/24 Ordered By: Dudley Amezcua Diet: Diabetic diet Activity on Discharge: As tolerated Stand Alone Forms: Patient Portal Discharge page Print Language: Ukrainian Care Plan Goals: Take prednisone 20 mg daily for 5 days, take doxycycline for 3 more days Avoid heat/use DuoNeb updraft 4 times a day for next 2-3 days and then as needed Health Concerns: COPD/asthma avoid allergens Plan of Treatment: Outpatient follow-up with primary care physician call for a appointment Assessment: As above
--- NOTE | 2024-03-07 11:20 | MHC.CM.PN ---
PT WILL DC HOME TODAY WITH NO SERVICES VIA PRIVATE TRANSPORT
[2024-03-07 19:09] LABS: Strep Pneumo Ag urine Not Detected (Not Detected)
[2024-03-09 05:49] LABS: Legionella Ag Urine Not Detected (Not Detected)
== END 2024-03-07 11:37 | disposition home or self-care (01) | DRG 140 ==
LOC: HO.ED 12:09 → HO.EDOVER 12:25 → HO.S3 18:16
PROVIDERS: Physician Assistant Medical; Admitting Provider Physician Assistant; Emergency Provider Emergency Medicine; PCP Internal Medicine; Visit Provider Hospitalist
DX: J44.0 Chronic obstructive pulmonary disease with (acute) lower respiratory infection (principal); J18.9 Pneumonia, unspecified organism; F90.9 Attention-deficit hyperactivity disorder, unspecified type; M79.7 Fibromyalgia; J44.1 Chronic obstructive pulmonary disease with (acute) exacerbation; E11.65 Type 2 diabetes mellitus with hyperglycemia; I10 Essential (primary) hypertension; G47.33 Obstructive sleep apnea (adult) (pediatric); F39 Unspecified mood [affective] disorder; Z87.891 Personal history of nicotine dependence; Z79.899 Other long term (current) drug therapy
CPT/HCPCS: 0241U; 36415; 71046; 80048; 80053; 82947; 83605; 83735; 85025; 87040; 87070; 87077; 87186; 87205; 87449; 87633; 87640; 87641; 87899; 94640; 99285; J0696; J1100; J1650; J2919; J3475

== ENCOUNTER → 2024-03-05 12:18 | Outpatient (BNV) | payer BC, MEDICARE, SELFPAY | PROVIDERS: Admitting Provider Physician Assistant; Emergency Provider Emergency Medicine; Visit Provider Physician Assistant | DX: J44.1 Chronic obstructive pulmonary disease with (acute) exacerbation (principal); J45.901 Unspecified asthma with (acute) exacerbation; J18.9 Pneumonia, unspecified organism | CPT/HCPCS: 99223; 99232; 99239 ==

== ENCOUNTER 2024-04-02 17:31 | Emergency (ER) | payer BC, MEDICARE, SELFPAY ==
[2024-04-02] VITALS (8 sets, daily range): BP systolic 149–191; BP diastolic 85–107; PULSE 89–109; RESP 18–25; TEMP 36.4–36.8; O2SAT 94–97; BMI 28.3
--- NOTE | ~2024-04-02 | XR_ITS ---
EXAMINATION: XR CHEST CLINICAL INFORMATION: Productive cough. Recent pneumonia COMPARISON: Chest radiograph dated 03/05/2024. TECHNIQUE: 2 views of the chest were obtained. FINDINGS: Heart size is normal. There is improved aeration at the left lung base and within the right middle lobe compared with examination dated 03/05/2024. There is no consolidation. No pleural effusion. No pneumothorax. No acute osseous abnormality. XR/XR chest 2V IMPRESSION: Improved aeration at the left lung base and within the right middle lobe. No consolidation.
--- NOTE | 2024-04-02 18:16 | ED_ITS ---
HPI - Asthma General Chief Complaint: Upper Respiratory Symptoms Stated Complaint: ashtma Time Seen by Provider: 04/02/24 20:28 Source: patient, RN notes reviewed and old records reviewed Mode of arrival: ambulatory Limitations: no limitations History of Present Illness ED Provider: Yris HPI Narrative: 53-year-old female with past medical history significant for asthma, diabetes, ADHD, COPD, alcohol use presents for evaluation of shortness of breath and wheezing. Patient reports for last 2 days she has had increasing shortness of breath with wheezing. She reports her symptoms started after returning from [place] She reports cough productive of green sputum. Denies any fevers or chills She denies any chest pain. Patient has elicited allergy to albuterol Patient states that she can use albuterol nebulizers but ?when I have the albuterol inhaler I used too much, so my [employer] consultant told me to list that as an adverse reaction. She has never had an anaphylactic reaction to albuterol or levalbuterol Related Data Home Medications ?Medication ?Instructions ?Recorded ?Confirmed dextroamphetamine-amphetamine 20 10 mg PO BID@0700,1600 07/26/20 03/05/24 mg tablet levalbuterol tartrate 45 2 puff inhalation Q4H PRN Wheezing 04/20/22 03/05/24 mcg/actuation aerosol inhaler (Xopenex HFA) lisinopril 20 mg tablet 1 tab PO DAILY 04/20/22 03/05/24 clonidine HCl 0.1 mg tablet 0.1 mg PO BID 03/20/23 03/05/24 dextroamphetamine-amphetamine ER 1 cap PO DAILY@0700 03/20/23 03/05/24 20 mg 24hr capsule,extend release prazosin 1 mg capsule 1 mg PO BEDTIME nightmares 03/20/23 03/05/24 risperidone 1 mg tablet 1 mg PO BEDTIME 03/20/23 03/05/24 diphenhydramine HCl 25 mg capsule 25 mg PO TID PRN Allergy Symptoms 03/05/24 03/05/24 (Benadryl) dulaglutide 3 mg/0.5 mL 3 mg subcut TH@0900 03/05/24 03/05/24 subcutaneous pen injector (Trulicity) ibuprofen 200 mg tablet 400 mg PO Q8H PRN Pain 03/05/24 03/05/24 ipratropium 0.5 mg-albuterol 3 mg 3 ml inhalation Q4H PRN shortness 03/05/24 03/05/24 (2.5 mg base)/3 mL nebulization of breath or wheezing soln tezepelumab-ekko 210 mg/1.91 mL 3 mg subcut Q4W 03/05/24 03/05/24 (110 mg/mL) subcutaneous pen injector (Tezspire) Previous Rx's ?Medication ?Instructions ?Recorded blood sugar diagnostic (Accu-Chek #100 ea 10/11/20 Guide test strips) blood-glucose meter (Accu-Chek #1 ea 10/11/20 Guide Glucose Meter) lancets (Accu-Chek Multiclix #100 ea 10/11/20 Lancet) benzonatate 100 mg capsule 100 mg PO BID PRN cough 7 days #14 07/20/23 caps doxycycline monohydrate 100 mg 100 mg PO BID #7 caps 03/07/24 capsule prednisone 20 mg tablet 20 mg PO DAILY #5 tabs 03/07/24 prednisone 20 mg tablet 40 mg (2 x 20 mg) PO DAILY #10 tabs 04/02/24 Allergies Allergy/AdvReac Type Severity Reaction Status Date / Time hydromorphone [From DILAUDID] Allergy Severe SEIZURES Verified 04/02/24 18:16 oxycodone [OXYCODONE] Allergy Severe SEIZURES Verified 04/02/24 18:16 vancomycin Allergy Severe Rash Verified 04/02/24 18:16 gabapentin [GABAPENTIN] Allergy Intermediate MUSCLE ACHE Verified 04/02/24 18:16 albuterol Allergy Mild Trouble Verified 04/02/24 18:16 breathing;MDI use only bupropion [From WELLBUTRIN] Allergy Unknown SEIZURES Verified 04/02/24 18:16 phenytoin [Dilantin] Allergy Unknown Unknown Verified 04/02/24 18:16 azithromycin Allergy Hives Verified 04/02/24 18:16 Review of Systems 2 Constitutional: Constitutional: Denies body ache(s), Denies chills, Denies fever(s), Denies headache(s) and Reports weakness ENT: Denies headache(s) and Denies sore throat Cardiovascular: Cardiovascular: Denies chest pain and Reports dyspnea Respiratory: Respiratory: Reports cough, Denies hemoptysis, Reports dyspnea, Denies stridor and Reports wheezing Gastrointestinal: Gastrointestinal: Denies abdominal pain, Denies nausea and Denies vomiting Musculoskeletal: Musculoskeletal: Denies back pain Integumentary/Breasts: Skin/Breast: Denies rash Neurologic: Denies headache(s) and Reports weakness Allergic/Immunologic: Allergic/Immunologic: Reports wheezing [facility] Past Medical History Medical History Bilateral knee pain Bilateral foot pain Colon cancer screening Annual physical exam Acute pneumonia Obese DMII (diabetes mellitus, type 2) Anxiety COPD (chronic obstructive pulmonary disease) Sleep apnea History of suicide attempt Asthma-COPD overlap syndrome HTN (hypertension) ADHD Epilepsy Fibromyalgia Tracheomalacia Cocaine abuse Alcohol abuse Asthma Surgical History Previous section History of cholecystectomy Family History Family History Father No problems noted. 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 critical care physician to a significant other at home: Yes Do you presently have visiting nurse or other home services: No Alcohol intake: former Comment: pt sleeping Patient Tobacco Use Status: Former Tobacco user Tobacco use type: Cigarette Cigarettes Per Day: 25 Years Smoked: 20 Smoked in Last 30 Days: No e-Cigarette/Vaping Use: Currently Using Second Hand Smoke Exposure: No Use of substances other than those prescribed or required for medical reasons: No Substance Use Type: Marijuana Advance Directives: Yes Advance Directives on File: Yes Advance Directives Date on File: 11/05/20 Do you have a plan to hurt others: No Plan Patient : No service: No Current occupational status: disabled Cognitive needs: Yes (Pt would like a cane ) Hearing needs: Yes (?hearing loss mostly from right ear.) Vision needs: Yes (Pt was seen 6 months and exam was good just need readig glasses.) Physical Exam 2 Vital Signs: Vital Signs: Last Vital Signs Temp 97.5 F 04/02/24 20:43 Pulse 109 H 04/02/24 22:27 Resp 21 H 04/02/24 21:05 BP 191/107 H 04/02/24 20:45 Pulse Ox 94 04/02/24 22:27 O2 Del Method Room Air 04/02/24 22:27 BMI result Body Mass Index 28.3 Const: General: healthy appearing, comfortable, no acute distress, alert and awake Nutritional Appearance: well nourished Orientation/consciousness: p atient oriented x3 HEENT: Head: Yes normocephalic and Yes atraumatic Eyes: Eyelids: Yes eyelids normal Conjunctivae: conjunctivae normal S clerae: sclerae normal Corneas: corneas normal Pupils: Equal, round and reactive pupils present EOM: EOMs intact bilaterally Neck: Neck: Yes full ROM Resp: Other: Patient has audible wheeze with diffuse expiratory wheeze on exam. She does have slightly increased respiratory effort in his tachypneic to 25 breaths per minute. Cardio: Rate: regular rate Rhythm: regular rhythm GI: Inspection: No distended Palpation (GI): Soft to palpation, not firm, nontender, no guarding and not rigid Skin: General skin exam: elasticity normal Neuro: General: patient oriented x3 Cranial nerves: Yes Equal, round and reactive pupils present and Yes Bilaterally intact EOM present Cognition (Neuro): normal cognition Course Course Course Narrative: This is a Rapid Medical Examination (RME) performed by Iqra Covington PA-C in triage. Full HPI, ROS, assessment and treatment plan per primary provider in the Main ED. 53 yo female history of severe persistent asthma, tracheomalacia, TEO, diabetes, ADHD, anxiety/depression, former ETOH abuse and history of MRSA PNA with recent admission here for Rhinovirus/Enterovirus 03/05-03/06 who presents to the ER for evaluation of SOB, productive cough, headache, fatigue for the last 3 days after coming home from vacation in [place]. Using nebs and inhalers w/ no improvement. Speaking in complete sentences in triage, voice is hoarse. bilateral wheezing throughout, spo2 94%. Plan: labs, CXR, viral swab. ED bronch protocol ordered Reevaluation(s) Reevaluation #1: Patient reports improvement in her symptoms after breathing treatment, on exam her lungs show only a faint wheeze in the bilateral bases, significantly improved aeration. Will attempt ambulation trial and the patient can be discharged if she has not hypoxic Time: 22:20 Reevaluation #2: Patient passed ambulation trial with her O2 sat maintaining 94% or better on room air Time: 22:28 Medications Administered Discontinued Medications Generic Name Dose Route Start Last Admin Trade Name Leonid PRN Reason Stop Dose Admin Levalbuterol HCl 5 mg/ 0 mg 04/02/24 20:58 04/02/24 21:02 Ipratropium Lyme 0.5 mg INHALE 04/02/24 20:59 5 dose ONCE ONE Administration Prednisone 60 mg 04/02/24 20:36 04/02/24 20:50 Prednisone 20 Mg Tablet PO 04/02/24 20:37 60 mg ONCE ONE Administration Medical Decision Making Medical Decision Making [facility] Narrative: 53-year-old female with past medical history as documented above presents for evaluation of shortness of breath and wheezing. She does long history of asthma, was admitted a few weeks ago for similar. Her chest x-ray shows no focal infiltrates and in fact increased aeration compared to recent x-ray. She has afebrile with no leukocytosis. This is likely a simple asthma exacerbation. Plan for treatment with levalbuterol and Atrovent DuoNeb. Will give prednisone 40 mg and re-evaluate. Differential Diagnosis Differential Diagnoses: The differential diagnosis associated with the presentation includes Asthma exacerbation COPD exacerbation Pneumonia Bronchitis Viral syndrome CHF less likely Lab Data [facility] Lab Attestation statement: I reviewed the patient's lab results. No leukocytosis or anemia. Normal platelet count. No electrolyte abnormalities 04/02/24 18:32 04/02/24 18:33 Labs: Lab Results 04/02/24 04/02/24 Range/Units 18:32 18:33 WBC 8.7 (4.8-10.8) X10*3/uL RBC 4.43 (4.20-5.50) X10*6/uL Hgb 15.1 (12.0-16.0) g/dl Hct 42.5 (37.0-47.0) % MCV 95.9 (80.0-98.0) fL MCH 34.1 H (27.0-33.0) pg MCHC 35.5 H (31.0-35.0) g/dl RDW 12.6 (11.0-16.0) % Plt Count 406 H D (160-400) X10*3/uL MPV 9.3 L (9.4-12.3) fL Immature Gran % (Auto) 0.5 H (0.0-0.4) % Neut % (Auto) 52.0 (45-73) % Lymph % (Auto) 37.6 (20-40) % [place] % (Auto) 8.4 (2-11) % Eos % (Auto) 0.9 (0-4) % Baso % (Auto) 0.6 (0-2) % Lymph # (Auto) 3.3 (1.2-4.9) X10*3/uL [place] # (Auto) 0.7 (0.1-1.2) X10*3/uL Eos # (Auto) 0.1 (0.0-0.4) X10*3/uL Baso # (Auto) 0.1 (0.0-0.2) X10*3/uL Abs Immat Gran (auto) 0.04 H (0.00-0.03) X10*3/uL Absolute Neuts (auto) 4.5 (2.0-8.3) x10*3/uL Absolute Nucleated RBC 0.000 (0.0-0.012) X10*3/uL Nucleated RBC % (auto) 0.0 (0.0-0.2) /100WBC Sodium 144 (135-145) mmol/L Potassium 3.3 D (3.3-5.1) mmol/L Chloride 108 (96-108) mmol/L Carbon Dioxide 24 (22-29) mmol/L Anion Gap 15 (12-20) BUN 8 L (9-16) mg/dL Creatinine 0.71 (0.5-1.4) mg/dL Estim Creat Clear Calc 77.5 Estimated GFR > 60 Random Glucose 118 H (60-115) mg/dL Calcium 9.4 (8.4-10.2) mg/dL B-Natriuretic Peptide 18 (<100) pg/mL Procalcitonin 0.08 ng/mL Influenza Type A (PCR) NEGATIVE (Negative) Influenza Type B (PCR) NEGATIVE (Negative) RSV RNA Qual (PCR) NEGATIVE (Negative) SARS-CoV-2 RNA (RT-PCR) NEGATIVE (Negative) Independent Interpretation I performed an independent interpretation of an: Plain X-Ray Interpretation: Agree with Radiology interpretation, no focal infiltrates Radiology Impression Discussion of test interpretation with radiology: I have reviewed the radiologist's reading. Radiologist Impression: XR/XR chest 2V IMPRESSION: Improved aeration at the left lung base and within the right middle lobe. No consolidation. Discharge Plan Discharge Clinical Impression: Acute exacerbation of COPD with asthma Patient Disposition: Home, Self-Care Instructions: Asthma (ED) Additional Instructions: Take prednisone 40 mg daily for the next 5 days. Use your inhalers as prescribed Follow-up with your primary doctor, return for new or worsening symptoms Prescriptions: New prednisone 20 mg tablet 40 mg PO DAILY Qty: 10 0RF No Action dextroamphetamine-amphetamine 20 mg tablet 10 mg PO BID@0700,1600 (DME) blood-glucose meter [Accu-Chek Guide Glucose Meter] Misc See Rx Instructions .ROUTE .MEDSUPPLY Qty: 1 0RF Rx Instructions: As directed (DME) Accu-Chek Guide test strips Strip See Rx Instructions .ROUTE .MEDSUPPLY Qty: 100 0RF Rx Instructions: As directed (DME) lancets [Accu-Chek Multiclix Lancet] Misc See Rx Instructions .ROUTE .MEDSUPPLY Qty: 100 0RF Rx Instructions: As directed levalbuterol tartrate [Xopenex HFA] 45 mcg/actuation HFA aerosol inhaler 2 puff inhalation Q4H PRN (Reason: Wheezing) lisinopril 20 mg tablet 1 tab PO DAILY clonidine HCl 0.1 mg tablet 0.1 mg PO BID dextroamphetamine-amphetamine 20 mg capsule,extended release 24hr 1 cap PO DAILY@0700 risperidone 1 mg tablet 1 mg PO BEDTIME prazosin 1 mg capsule 1 mg PO BEDTIME benzonatate 100 mg capsule 100 mg PO BID PRN (Reason: cough) 7 Days Qty: 14 0RF Trulicity 3 mg/0.5 mL pen injector 3 mg subcut TH@0900 Tezspire 210 mg/1.91 mL (110 mg/mL) pen injector 3 mg subcut Q4W ipratropium-albuterol 0.5 mg-3 mg(2.5 mg base)/3 mL solution for nebulization 3 ml inhalation Q4H PRN (Reason: shortness of breath or wheezing) diphenhydramine HCl [Benadryl] 25 mg Capsule 25 mg PO TID PRN (Reason: Allergy Symptoms) ibuprofen 200 mg Tablet 400 mg PO Q8H PRN (Reason: Pain) doxycycline monohydrate 100 mg capsule 100 mg PO BID Qty: 7 0RF prednisone 20 mg tablet 20 mg PO DAILY Qty: 5 0RF Rx Instructions: Take with food Print Language: Kazakh
[2024-04-02 18:36] LABS: MANUAL DIFF FLAG NO
[2024-04-02 18:40] LABS: Basophils Absolute Auto 0.1 X10*3/uL (0.0-0.2); Basophils Percent Auto 0.6 % (0-2); Eosinophils Absolute Auto 0.1 X10*3/uL (0.0-0.4); Eosinophils Percent Auto 0.9 % (0-4); Hematocrit 42.5 % (37.0-47.0); Hemoglobin 15.1 g/dl (12.0-16.0); Imm Gran Abs Auto 0.04 X10*3/uL (0.00-0.03); Imm Gran Pct Auto 0.5 % (0.0-0.4); Lymphocytes Absolute Auto 3.3 X10*3/uL (1.2-4.9); Lymphocytes Percent Auto 37.6 % (20-40); Mean Corpuscular HGB Conc 35.5 g/dl (31.0-35.0); Mean Corpuscular Hemoglobin 34.1 pg (27.0-33.0); Mean Corpuscular Volume 95.9 fL (80.0-98.0); Mean Platelet Volume 9.3 fL (9.4-12.3); Monocytes Absolute Auto 0.7 X10*3/uL (0.1-1.2); Monocytes Percent Auto 8.4 % (2-11); Neutrophils Absolute Auto 4.5 x10*3/uL (2.0-8.3); Platelet Count 406 X10*3/uL (160-400); Red Blood Count 4.43 X10*6/uL (4.20-5.50); Red Cell Distribution Width 12.6 % (11.0-16.0); White Blood Count 8.7 X10*3/uL (4.8-10.8)
[2024-04-02 18:57] LABS: Anion Gap 15 (12-20); Blood Urea Nitrogen 8 mg/dL (9-16); Calcium 9.4 mg/dL (8.4-10.2); Carbon Dioxide 24 mmol/L (22-29); Chloride 108 mmol/L (96-108); Creatinine Clr Calc Pharmacy 77.5; Estimated Glomerular Filt Rate > 60; Glucose Random 118 mg/dL (60-115); Potassium 3.3 mmol/L (3.3-5.1); Sodium 144 mmol/L (135-145)
[2024-04-02 18:57] LABS: B Type Natriuretic Peptide 18 pg/mL (<100)
[2024-04-02 19:13] LABS: Procalcitonin 0.08 ng/mL
[2024-04-02 19:15] LABS: Influenza A PCR NEGATIVE (Negative); Influenza B PCR NEGATIVE (Negative); Resp Syncy Virus RNA Qual PCR NEGATIVE (Negative); SARS COV2 PCR INHOUSE NEGATIVE (Negative)
[2024-04-02] MEDS: predniSONE 20 MG TABLET 60 MG PO (20:50)
--- NOTE | 2024-04-02 20:51 | PC.NURSE ---
Provider to bedside for primary eval, pt medicated per MAR, awaiting RT for updraft.
[2024-04-02] MEDS: levalbuterol HCL 5 MG, Ipratropium Bromide 0.5 MG INHALE (21:02)
== END 2024-04-02 22:49 | disposition home or self-care (01) ==
PROVIDERS: Physician Assistant; Emergency Provider Emergency Medicine
DX: J44.1 Chronic obstructive pulmonary disease with (acute) exacerbation (principal); R06.02 Shortness of breath; Z87.891 Personal history of nicotine dependence; Z79.899 Other long term (current) drug therapy; Z03.818 Encounter for observation for suspected exposure to other biological agents ruled out
CPT/HCPCS: 0241U; 71046; 80048; 83880; 84145; 85025; 94640; 99284; 99285

== ENCOUNTER 2024-05-16 19:25 | Emergency (ER) | payer BC, MEDICARE, SELFPAY ==
--- NOTE | ~2024-05-16 | XR_ITS ---
EXAMINATION: XR CHEST 2 VIEW CLINICAL INFORMATION: Wheezing COMPARISON: 03/05/2020 TECHNIQUE: PA and lateral views of the chest obtained. FINDINGS: Discoid atelectasis or scar is again evident at the left lung base. The right lung is clear other than minimal linear scar, unchanged. There are no pleural effusions. The cardiomediastinal silhouette is normal. XR/XR chest 2V IMPRESSION: No acute cardiopulmonary disease or significant interval change. Electronically signed by: José Miguel Hogan MD 05/16/2024 07:53 PM EDT RP
[2024-05-16 19:41] VITALS: BP 129/96; PULSE 110; RESP 22; TEMP 36.6; O2SAT 100; BMI 28.3
--- NOTE | 2024-05-16 19:42 | ED.GENADULT ---
HPI - General Adult General Chief complaint: Asthma Stated complaint: asthma Time Seen by Provider: 05/16/24 21:23 Source: patient Mode of arrival: ambulatory Limitations: no limitations History of Present Illness ED Provider: Dr. Veronica Butt HPI narrative: patient comes to the emergency room complaining of shortness of breath, wheezing, dysuria for couple of days and bilateral flank pain. Patient states year ran out of medications couple of days ago. 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 Despite medication treatment at home, patient still feels a bit wheezy. Denies fever chills Related Data Home Medications ?Medication ?Instructions ?Recorded ?Confirmed dextroamphetamine-amphetamine 20 10 mg PO BID@0700,1600 07/26/20 03/05/24 mg tablet levalbuterol tartrate 45 2 puff inhalation Q4H PRN Wheezing 04/20/22 03/05/24 mcg/actuation aerosol inhaler (Xopenex HFA) lisinopril 20 mg tablet 1 tab PO DAILY 04/20/22 03/05/24 clonidine HCl 0.1 mg tablet 0.1 mg PO BID 03/20/23 03/05/24 dextroamphetamine-amphetamine ER 1 cap PO DAILY@0700 03/20/23 03/05/24 20 mg 24hr capsule,extend release prazosin 1 mg capsule 1 mg PO BEDTIME nightmares 03/20/23 03/05/24 risperidone 1 mg tablet 1 mg PO BEDTIME 03/20/23 03/05/24 diphenhydramine HCl 25 mg capsule 25 mg PO TID PRN Allergy Symptoms 03/05/24 03/05/24 (Benadryl) dulaglutide 3 mg/0.5 mL 3 mg subcut TH@0900 03/05/24 03/05/24 subcutaneous pen injector (Trulicity) ibuprofen 200 mg tablet 400 mg PO Q8H PRN Pain 03/05/24 03/05/24 ipratropium 0.5 mg-albuterol 3 mg 3 ml inhalation Q4H PRN shortness 03/05/24 03/05/24 (2.5 mg base)/3 mL nebulization of breath or wheezing soln tezepelumab-ekko 210 mg/1.91 mL 3 mg subcut Q4W 03/05/24 03/05/24 (110 mg/mL) subcutaneous pen injector (Tezspire) Previous Rx's ?Medication ?Instructions ?Recorded blood sugar diagnostic (Accu-Chek #100 ea 10/11/20 Guide test strips) blood-glucose meter (Accu-Chek #1 ea 10/11/20 Guide Glucose Meter) lancets (Accu-Chek Multiclix #100 ea 10/11/20 Lancet) benzonatate 100 mg capsule 100 mg PO BID PRN cough 7 days #14 07/20/23 caps doxycycline monohydrate 100 mg 100 mg PO BID #7 caps 03/07/24 capsule prednisone 20 mg tablet 20 mg PO DAILY #5 tabs 03/07/24 prednisone 20 mg tablet 40 mg (2 x 20 mg) PO DAILY #10 tabs 04/02/24 cefuroxime axetil 250 mg tablet 250 mg PO BID #14 tabs 05/16/24 Allergies Allergy/AdvReac Type Severity Reaction Status Date / Time hydromorphone [From DILAUDID] Allergy Severe SEIZURES Verified 05/16/24 19:43 oxycodone [OXYCODONE] Allergy Severe SEIZURES Verified 05/16/24 19:43 vancomycin Allergy Severe Rash Verified 05/16/24 19:43 gabapentin [GABAPENTIN] Allergy Intermediate MUSCLE ACHE Verified 05/16/24 19:43 albuterol Allergy Mild Trouble Verified 05/16/24 19:43 breathing;MDI use only bupropion [From WELLBUTRIN] Allergy Unknown SEIZURES Verified 05/16/24 19:43 phenytoin [Dilantin] Allergy Unknown Unknown Verified 05/16/24 19:43 azithromycin Allergy Hives Verified 05/16/24 19:43 Review of Systems Review of Systems: Constitutional : No Weight loss, No Fever, No Chills, No Night Sweats, No Fatigue, No Malaise ENT/Mouth : No Hearing loss, No Ear Pain, No Nasal Congestion, No Sinus Pain, No Hoarseness, No sore throat, No Rhinorrhea, No Swallowing Difficulty Eyes: No Eye Pain, No Swelling, No Redness, No Foreign Body, No Discharge, No Vision Changes Cardiovascular : No Chest Pain, No SOB, No Dyspnea on Exertion, No Orthopnea, No Edema, No Palpitations Respiratory : no cough, complaining of wheezing Gastrointestinal : No Nausea, No Vomiting, No Diarrhea, No Constipation, No abdominal Pain, No Hematochezia, No Melena Genitourinary : no irregular bleeding, complaining ofDysuria, No Urinary Frequency, No Hematuria, No Urinary Incontinence, complaining of frequency, urgency and flank pain, No Urinary Flow Changes, No Hesitancy Musculoskeletal : No joint pain, No Myalgias, No Joint Swelling Skin : No Skin Lesions, No rash Neuro : No Weakness, No Numbness, No Paresthesias, No Loss of Consciousness, No Dizziness, No Headache Psych : No Anxiety/Panic, No Depression, No SI/HI/AH/VH, No Social Issues, Heme/Lymph: No Bruising, No Bleeding,No Lymphadenopathy Endocrine : No Polyuria, No Polydipsia, No Temperature Intolerance [facility] Past Medical History Medical History Bilateral knee pain Bilateral foot pain Colon cancer screening Annual physical exam Acute pneumonia Obese DMII (diabetes mellitus, type 2) Anxiety COPD (chronic obstructive pulmonary disease) Sleep apnea History of suicide attempt Asthma-COPD overlap syndrome HTN (hypertension) ADHD Epilepsy Fibromyalgia Tracheomalacia Cocaine abuse Alcohol abuse Asthma Surgical History Previous section History of cholecystectomy Family History Family History Father No problems noted. 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 Do you presently have visiting nurse or other home services: No Alcohol intake: former Comment: pt sleeping Patient Tobacco Use Status: Former Tobacco user Tobacco use type: Cigarette Cigarettes Per Day: 25 Years Smoked: 20 e-Cigarette/Vaping Use: Currently Using Second Hand Smoke Exposure: No Substance Use Type: Marijuana Advance Directives: Yes Advance Directives on File: Yes Advance Directives Date on File: 11/05/20 Do you have a plan to hurt others: No Plan service: No Current occupational status: disabled Cognitive needs: Yes (Pt would like a cane ) Hearing needs: Yes (?hearing loss mostly from right ear.) Vision needs: Yes (Pt was seen 6 months and exam was good just need readig glasses.) Physical Exam ED Vital Signs: Vital Signs - 24 hr 05/16/24 19:41 05/16/24 21:49 05/16/24 22:01 Temperature 97.9 F 98.5 F Pulse Rate 110 H 88 94 Respiratory Rate 22 H 20 18 Blood Pressure 129/96 H 133/75 Pulse Oximetry 100 96 Oxygen Delivery Method Room Air Room Air BMI result Body Mass Index 28.3 Const Other: Appearance: Alert. Oriented X3. No acute distress. Eyes: Pupils equal, round and reactive to light. ENT: Pharynx normal. Neck: Normal inspection. Neck supple. No lymph nodes noted. No crepitus CVS: Normal heart rate and rhythm. Pulses normal. Normal S1 and S2 Respiratory: normal respiratory rate, oxygen saturation 99% on room air, bilateral wheezing with fair air movement Abdomen: Soft and nontender. No rigidity. No distention. no CVA tenderness Skin: Skin warm and dry. Normal skin color. Normal skin turgor. Extremities: No lower extremity edema. No Lacerations. No Rash Neuro: Oriented X 3. No motor deficit. No sensory deficit. Moving all extremities. No slurred speech. CN 2 through 12 grossly intact Psych: calm, cooperative, normal affect Course Course Course Narrative: This is a Rapid Medical Examination (RME) performed by Mic Dena PA-C in triage. Full HPI, ROS, assessment and treatment plan per primary provider in the Main ED. 53 year old female hx of asthma, copd, etoh use, DM, ADHD here for eval of shortness of breath, wheezing, and productive cough x5 days after running out of her inhaler. she was able to refill her inhaler yesterday, used it around 4pm today without relief. also admits to bilateral flank pain (L>R) and dysuria x2 days. no fever/chills. + diffuse expiratory wheezes. +left cvat Plan: labs, UA, viral serology, CXR and ED bronch protocol Medications Administered Discontinued Medications Generic Name Dose Route Start Last Admin Trade Name Freq PRN Reason Stop Dose Admin Acetaminophen 975 mg 05/16/24 22:23 05/16/24 22:37 Acetaminophen 325 Mg Tablet PO 05/16/24 22:24 975 mg ONCE ONE Administration Albuterol Sulfate 7.5 mg/ 10 mg 05/16/24 21:52 05/16/24 21:55 Albuterol Sulfate 2.5 mg INHALE 05/16/24 21:53 10 mg ONCE ONE Administration Cefuroxime Axetil 250 mg 05/16/24 21:26 05/16/24 21:55 Cefuroxime Axetil 250 Mg Tablet PO 05/16/24 21:27 250 mg ONCE ONE Administration Magnesium Sulfate/Dextrose 1 gm in 100 mls @ 100 mls/hr 05/16/24 21:38 05/16/24 21:55 Magnesium Sulfate/D5w IV 05/16/24 22:37 100 mls/hr ONCE ONE Administration Methylprednisolone Sodium Succinate 125 mg 05/16/24 21:38 05/16/24 21:55 Methylprednisolone Sod Succ 125 Mg/2 Ml Vial IVPUSH 05/16/24 21:39 125 mg ONCE ONE Administration Potassium Chloride 60 meq 05/16/24 21:26 05/16/24 21:55 Potassium Chloride Packet 20 Meq Packet PO 05/16/24 21:27 60 meq ONCE ONE Administration Medical Decision Making Medical Decision Making MDM Narrative: - My interpretation of labs, white blood cell count within normal limits, chemistry shows a potassium of 2.9, repleted p.o., normal LFTs patient receiving p.o. potassium, cefuroxime for UTI, Solu-Medrol, IV magnesium and nebulization treatment - I reviewed patient's microbiology report from her last urine report, patient is susceptible to all antibiotics except ampicillin. - after the above-mentioned medication, patient states that she feels back to baseline. Patient no longer wheezing, clear lung sounds, normal air movement - patient was ambulated around the emergency room, oxygen saturation steady 95% and above. Differential Diagnosis Differential Diagnoses: The differential diagnosis associated with the presentation includes ( asthma exacerbation, UTI, pyelonephritis, hypokalemia) Admission/Observation Consideration of admission/observation: Escalation of care including admission/observation considered ( given patient's presentation and multiple symptoms, observation was considered) Lab Data MDM Lab Attestation statement: I reviewed the patient's lab results. 05/16/24 20:07 05/16/24 20:07 Labs: Lab Results 05/16/24 Range/Units 20:07 WBC 9.4 (4.8-10.8) X10*3/uL RBC 4.48 (4.20-5.50) X10*6/uL Hgb 15.6 (12.0-16.0) g/dl Hct 43.2 (37.0-47.0) % MCV 96.4 (80.0-98.0) fL MCH 34.8 H (27.0-33.0) pg MCHC 36.1 H (31.0-35.0) g/dl RDW 14.4 (11.0-16.0) % Plt Count 329 (160-400) X10*3/uL MPV 9.1 L (9.4-12.3) fL Immature Gran % (Auto) 0.4 (0.0-0.4) % Neut % (Auto) 54.9 (45-73) % Lymph % (Auto) 35.6 (20-40) % [place] % (Auto) 7.7 (2-11) % Eos % (Auto) 0.7 (0-4) % Baso % (Auto) 0.7 (0-2) % Lymph # (Auto) 3.3 (1.2-4.9) X10*3/uL [place] # (Auto) 0.7 (0.1-1.2) X10*3/uL Eos # (Auto) 0.1 (0.0-0.4) X10*3/uL Baso # (Auto) 0.1 (0.0-0.2) X10*3/uL Abs Immat Gran (auto) 0.04 H (0.00-0.03) X10*3/uL Absolute Neuts (auto) 5.1 (2.0-8.3) x10*3/uL Absolute Nucleated RBC 0.000 (0.0-0.012) X10*3/uL Nucleated RBC % (auto) 0.0 (0.0-0.2) /100WBC Sodium 142 (135-145) mmol/L Potassium 2.9 L* (3.3-5.1) mmol/L Chloride 107 (96-108) mmol/L Carbon Dioxide 25 (22-29) mmol/L Anion Gap 13 (12-20) BUN 7 L (9-16) mg/dL Creatinine 0.77 (0.5-1.4) mg/dL Estim Creat Clear Calc 74.5 Estimated GFR > 60 Random Glucose 117 H (60-115) mg/dL Calcium 9.6 (8.4-10.2) mg/dL Magnesium 2.2 (1.6-2.6) mg/dL Total Bilirubin 0.5 (0.0-1.0) mg/dL AST 93 H (5-31) U/L ALT 71 H (0-31) U/L Alkaline Phosphatase 93 (39-117) U/L Total Protein 7.5 (6.5-8.0) g/dL Albumin 4.2 (3.5-5.0) g/dL Urine Color Yellow Urine Appearance Clear Urine pH 6.5 (5.0-9.0) Ur Specific [place] <= 1.005 (1.005-1.025) Urine Protein Negative (Neg-Trace) mg/dL Urine Glucose (UA) Negative (Negative) mg/dL Urine Ketones Negative (Negative) mg/dL Urine Blood Negative (Negative) Urine Nitrite Negative (Negative) Ur Leukocyte Esterase Small (1+) H (Negative) Urine RBC 0-2 (0-2) /HPF Urine WBC 6-10 H (0-5) /HPF Ur Squamous Epith Cells 0-2 (0-2) /HPF Urine Bacteria None Seen (None Seen) Hyaline Casts 0-2 (0-2) /LPF Influenza Type A (PCR) NEGATIVE (Negative) Influenza Type B (PCR) NEGATIVE (Negative) RSV RNA Qual (PCR) NEGATIVE (Negative) SARS-CoV-2 RNA (RT-PCR) NEGATIVE (Negative) Critical Care Time Critical Care Time Critical Care Time: Yes Total Critical Care Time: 45 Attestation: I have personally provided critical care time. Time includes review of lab data, radiology results, discussion with consultants, and monitoring for potential decompensation. Intervention performed as documented. Discharge Plan Discharge Clinical Impression: Asthma exacerbation, UTI (urinary tract infection), Acute hypokalemia Patient Disposition: Home, Self-Care Instructions: Asthma (ED), Urinary Tract Infection in Women (ED), Hypokalemia (ED) Additional Instructions: Please follow-up with your primary care physician tomorrow. If you have any worsening or new symptoms, please return to the emergency room or call 911 Prescriptions: New cefuroxime axetil 250 mg tablet 250 mg PO BID Qty: 14 0RF No Action dextroamphetamine-amphetamine 20 mg tablet 10 mg PO BID@0700,1600 (DME) blood-glucose meter [Accu-Chek Guide Glucose Meter] Misc See Rx Instructions .ROUTE .MEDSUPPLY Qty: 1 0RF Rx Instructions: As directed (DME) Accu-Chek Guide test strips Strip See Rx Instructions .ROUTE .MEDSUPPLY Qty: 100 0RF Rx Instructions: As directed (DME) lancets [Accu-Chek Multiclix Lancet] Misc See Rx Instructions .ROUTE .MEDSUPPLY Qty: 100 0RF Rx Instructions: As directed levalbuterol tartrate [Xopenex HFA] 45 mcg/actuation HFA aerosol inhaler 2 puff inhalation Q4H PRN (Reason: Wheezing) lisinopril 20 mg tablet 1 tab PO DAILY prednisone 20 mg tablet 40 mg PO DAILY Qty: 10 0RF clonidine HCl 0.1 mg tablet 0.1 mg PO BID dextroamphetamine-amphetamine 20 mg capsule,extended release 24hr 1 cap PO DAILY@0700 risperidone 1 mg tablet 1 mg PO BEDTIME prazosin 1 mg capsule 1 mg PO BEDTIME benzonatate 100 mg capsule 100 mg PO BID PRN (Reason: cough) 7 Days Qty: 14 0RF Trulicity 3 mg/0.5 mL pen injector 3 mg subcut TH@0900 Tezspire 210 mg/1.91 mL (110 mg/mL) pen injector 3 mg subcut Q4W ipratropium-albuterol 0.5 mg-3 mg(2.5 mg base)/3 mL solution for nebulization 3 ml inhalation Q4H PRN (Reason: shortness of breath or wheezing) diphenhydramine HCl [Benadryl] 25 mg Capsule 25 mg PO TID PRN (Reason: Allergy Symptoms) ibuprofen 200 mg Tablet 400 mg PO Q8H PRN (Reason: Pain) doxycycline monohydrate 100 mg capsule 100 mg PO BID Qty: 7 0RF prednisone 20 mg tablet 20 mg PO DAILY Qty: 5 0RF Rx Instructions: Take with food Print Language: Argentine
[2024-05-16 20:14] LABS: MANUAL DIFF FLAG NO
[2024-05-16 20:17] LABS: Basophils Absolute Auto 0.1 X10*3/uL (0.0-0.2); Basophils Percent Auto 0.7 % (0-2); Eosinophils Absolute Auto 0.1 X10*3/uL (0.0-0.4); Eosinophils Percent Auto 0.7 % (0-4); Hematocrit 43.2 % (37.0-47.0); Hemoglobin 15.6 g/dl (12.0-16.0); Imm Gran Abs Auto 0.04 X10*3/uL (0.00-0.03); Imm Gran Pct Auto 0.4 % (0.0-0.4); Lymphocytes Absolute Auto 3.3 X10*3/uL (1.2-4.9); Lymphocytes Percent Auto 35.6 % (20-40); Mean Corpuscular HGB Conc 36.1 g/dl (31.0-35.0); Mean Corpuscular Hemoglobin 34.8 pg (27.0-33.0); Mean Corpuscular Volume 96.4 fL (80.0-98.0); Mean Platelet Volume 9.1 fL (9.4-12.3); Monocytes Absolute Auto 0.7 X10*3/uL (0.1-1.2); Monocytes Percent Auto 7.7 % (2-11); Neutrophils Absolute Auto 5.1 x10*3/uL (2.0-8.3); Neutrophils Percent Auto 54.9 % (45-73); Platelet Count 329 X10*3/uL (160-400); Red Blood Count 4.48 X10*6/uL (4.20-5.50); Red Cell Distribution Width 14.4 % (11.0-16.0); White Blood Count 9.4 X10*3/uL (4.8-10.8)
[2024-05-16 20:19] LABS: Appearance Urine Clear; Color Urine Yellow; Glucose Urine UA Negative (Negative); Leukocyte Esterase Urine Small (1+) (Negative); Nitrite Urine Negative (Negative); PH 6.5 (5.0-9.0); Specific Gravity - Urine <= 1.005 (1.005-1.025); UMIC TRIGGER UACC YES; Urine Blood Negative (Negative); Urine Ketones Negative (Negative); Urine Protein Negative (Neg-Trace)
[2024-05-16 20:26] LABS: Bacteria Urine None Seen (None Seen); Hyaline Casts Urine 0-2 /LPF (0-2); RBC Urine 0-2 /HPF (0-2); Squamous Epithelial Cell Urine 0-2 /HPF (0-2); UACC Culture Trigger YES
[2024-05-16 20:54] LABS: Alanine Aminotransferase 71 U/L (0-31); Albumin Level 4.2 g/dL (3.5-5.0); Alkaline Phosphatase 93 U/L (39-117); Anion Gap 13 (12-20); Aspartate Amino Transferase 93 U/L (5-31); Bilirubin Total 0.5 mg/dL (0.0-1.0); Blood Urea Nitrogen 7 mg/dL (9-16); Calcium 9.6 mg/dL (8.4-10.2); Carbon Dioxide 25 mmol/L (22-29); Chloride 107 mmol/L (96-108); Creatinine Clr Calc Pharmacy 74.5; Estimated Glomerular Filt Rate > 60; Glucose Random 117 mg/dL (60-115); Influenza A PCR NEGATIVE (Negative); Influenza B PCR NEGATIVE (Negative); Magnesium 2.2 mg/dL (1.6-2.6); Potassium 2.9 mmol/L (3.3-5.1); Resp Syncy Virus RNA Qual PCR NEGATIVE (Negative); SARS COV2 PCR INHOUSE NEGATIVE (Negative); Sodium 142 mmol/L (135-145); Total Protein 7.5 g/dL (6.5-8.0)
--- NOTE | 2024-05-16 21:36 | ED_ITS ---
HPI - Asthma General Chief Complaint: Asthma Stated Complaint: asthma Time Seen by Provider: 05/16/24 21:23 Source: patient Mode of arrival: ambulatory Limitations: no limitations History of Present Illness ED Provider: Dr. Veronica Butt HPI Narrative: patient comes to the emergency room complaining of wheezing for several days. Patient states that she ran out of her medications but she was able to pick them up yesterday. However, even after using her inhaler she still feels a bit wheezy. Also, since yesterday, patient states that she has been having suprapubic pressure, painful urination, no hematuria, Mild bilateral lower back pain. Patient denies any fever or chills Related Data Home Medications ?Medication ?Instructions ?Recorded ?Confirmed dextroamphetamine-amphetamine 20 10 mg PO BID@0700,1600 07/26/20 03/05/24 mg tablet levalbuterol tartrate 45 2 puff inhalation Q4H PRN Wheezing 04/20/22 03/05/24 mcg/actuation aerosol inhaler (Xopenex HFA) lisinopril 20 mg tablet 1 tab PO DAILY 04/20/22 03/05/24 clonidine HCl 0.1 mg tablet 0.1 mg PO BID 03/20/23 03/05/24 dextroamphetamine-amphetamine ER 1 cap PO DAILY@0700 03/20/23 03/05/24 20 mg 24hr capsule,extend release prazosin 1 mg capsule 1 mg PO BEDTIME nightmares 03/20/23 03/05/24 risperidone 1 mg tablet 1 mg PO BEDTIME 03/20/23 03/05/24 diphenhydramine HCl 25 mg capsule 25 mg PO TID PRN Allergy Symptoms 03/05/24 03/05/24 (Benadryl) dulaglutide 3 mg/0.5 mL 3 mg subcut TH@0900 03/05/24 03/05/24 subcutaneous pen injector (Trulicity) ibuprofen 200 mg tablet 400 mg PO Q8H PRN Pain 03/05/24 03/05/24 ipratropium 0.5 mg-albuterol 3 mg 3 ml inhalation Q4H PRN shortness 03/05/24 03/05/24 (2.5 mg base)/3 mL nebulization of breath or wheezing soln tezepelumab-ekko 210 mg/1.91 mL 3 mg subcut Q4W 03/05/24 03/05/24 (110 mg/mL) subcutaneous pen injector (Nathanzspire) Previous Rx's ?Medication ?Instructions ?Recorded blood sugar diagnostic (Accu-Chek #100 ea 10/11/20 Guide test strips) blood-glucose meter (Accu-Chek #1 ea 10/11/20 Guide Glucose Meter) lancets (Accu-Chek Multiclix #100 ea 10/11/20 Lancet) benzonatate 100 mg capsule 100 mg PO BID PRN cough 7 days #14 07/20/23 caps doxycycline monohydrate 100 mg 100 mg PO BID #7 caps 03/07/24 capsule prednisone 20 mg tablet 20 mg PO DAILY #5 tabs 03/07/24 prednisone 20 mg tablet 40 mg (2 x 20 mg) PO DAILY #10 tabs 04/02/24 Allergies Allergy/AdvReac Type Severity Reaction Status Date / Time hydromorphone [From DILAUDID] Allergy Severe SEIZURES Verified 05/16/24 19:43 oxycodone [OXYCODONE] Allergy Severe SEIZURES Verified 05/16/24 19:43 vancomycin Allergy Severe Rash Verified 05/16/24 19:43 gabapentin [GABAPENTIN] Allergy Intermediate MUSCLE ACHE Verified 05/16/24 19:43 albuterol Allergy Mild Trouble Verified 05/16/24 19:43 breathing;MDI use only bupropion [From WELLBUTRIN] Allergy Unknown SEIZURES Verified 05/16/24 19:43 phenytoin [Dilantin] Allergy Unknown Unknown Verified 05/16/24 19:43 azithromycin Allergy Hives Verified 05/16/24 19:43 Review of Systems 2 Review of Systems: Constitutional : No Weight loss, No Fever, No Chills, No Night Sweats, No Fatigue, No Malaise ENT/Mouth : No Hearing loss, No Ear Pain, No Nasal Congestion, No Sinus Pain, No Hoarseness, No sore throat, No Rhinorrhea, No Swallowing Difficulty Eyes: No Eye Pain, No Swelling, No Redness, No Foreign Body, No Discharge, No Vision Changes Cardiovascular : No Chest Pain, No SOB, No Dyspnea on Exertion, No Orthopnea, No Edema, No Palpitations Respiratory : No Cough, No Sputum, complaining of Wheezing, No Smoke Exposure, No Dyspnea Gastrointestinal : No Nausea, No Vomiting, No Diarrhea, No Constipation, No abdominal Pain, No Hematochezia, No Melena Genitourinary : no irregular bleeding, complaining of Dysuria, No Urinary Frequency, No Hematuria, No Urinary Incontinence, No Urgency, complaining of bilateral Flank Pain, No Urinary Flow Changes, No Hesitancy Musculoskeletal : No joint pain, No Myalgias, No Joint Swelling Skin : No Skin Lesions, No rash Neuro : No Weakness, No Numbness, No Paresthesias, No Loss of Consciousness, No Dizziness, No Headache Psych : No Anxiety/Panic, No Depression, No SI/HI/AH/VH, No Social Issues, Heme/Lymph: No Bruising, No Bleeding,No Lymphadenopathy Endocrine : No Polyuria, No Polydipsia, No Temperature Intolerance [facility] Past Medical History Medical History Bilateral knee pain Bilateral foot pain Colon cancer screening Annual physical exam Acute pneumonia Obese DMII (diabetes mellitus, type 2) Anxiety COPD (chronic obstructive pulmonary disease) Sleep apnea History of suicide attempt Asthma-COPD overlap syndrome HTN (hypertension) ADHD Epilepsy Fibromyalgia Tracheomalacia Cocaine abuse Alcohol abuse Asthma Surgical History Previous section History of cholecystectomy Family History Family History Father No problems noted. 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 personal care aid to a significant other at home: Yes Do you presently have visiting nurse or other home services: No Alcohol intake: former Comment: pt sleeping Patient Tobacco Use Status: Former Tobacco user Tobacco use type: Cigarette Cigarettes Per Day: 25 Years Smoked: 20 e-Cigarette/Vaping Use: Currently Using Second Hand Smoke Exposure: No Substance Use Type: Marijuana Advance Directives: Yes Advance Directives on File: Yes Advance Directives Date on File: 11/05/20 Do you have a plan to hurt others: No Plan service: No Current occupational status: disabled Cognitive needs: Yes (Pt would like a cane ) Hearing needs: Yes (?hearing loss mostly from right ear.) Vision needs: Yes (Pt was seen 6 months and exam was good just need readig glasses.) Physical Exam 2 Vital Signs: Vital Signs: Last Vital Signs Temp 97.9 F 05/16/24 19:41 Pulse 110 H 05/16/24 19:41 Resp 22 H 05/16/24 19:41 BP 129/96 H 05/16/24 19:41 Pulse Ox 100 05/16/24 19:41 O2 Del Method Room Air 05/16/24 19:41 BMI result Body Mass Index 28.3 Const: Other: Appearance: Alert. Oriented X3. No acute distress. Eyes: Pupils equal, round and reactive to light. ENT: Pharynx normal. Neck: Normal inspection. Neck supple. No lymph nodes noted. No crepitus CVS: Normal heart rate and rhythm. Pulses normal. Normal S1 and S2 Respiratory: No respiratory distress. Breath sounds normal. No Wheezing. No rales Abdomen: Soft and nontender. No rigidity. No distention. Skin: Skin warm and dry. Normal skin color. Normal skin turgor. Extremities: No lower extremity edema. No Lacerations. No Rash Neuro: Oriented X 3. No motor deficit. No sensory deficit. Moving all extremities. No slurred speech. CN 2 through 12 grossly intact Psych: calm, cooperative, normal affect Medical Decision Making Lab Data 05/16/24 20:07 05/16/24 20:07 Labs: Lab Results 05/16/24 Range/Units 20:07 WBC 9.4 (4.8-10.8) X10*3/uL RBC 4.48 (4.20-5.50) X10*6/uL Hgb 15.6 (12.0-16.0) g/dl Hct 43.2 (37.0-47.0) % MCV 96.4 (80.0-98.0) fL MCH 34.8 H (27.0-33.0) pg MCHC 36.1 H (31.0-35.0) g/dl RDW 14.4 (11.0-16.0) % Plt Count 329 (160-400) X10*3/uL MPV 9.1 L (9.4-12.3) fL Immature Gran % (Auto) 0.4 (0.0-0.4) % Neut % (Auto) 54.9 (45-73) % Lymph % (Auto) 35.6 (20-40) % [place] % (Auto) 7.7 (2-11) % Eos % (Auto) 0.7 (0-4) % Baso % (Auto) 0.7 (0-2) % Lymph # (Auto) 3.3 (1.2-4.9) X10*3/uL [place] # (Auto) 0.7 (0.1-1.2) X10*3/uL Eos # (Auto) 0.1 (0.0-0.4) X10*3/uL Baso # (Auto) 0.1 (0.0-0.2) X10*3/uL Abs Immat Gran (auto) 0.04 H (0.00-0.03) X10*3/uL Absolute Neuts (auto) 5.1 (2.0-8.3) x10*3/uL Absolute Nucleated RBC 0.000 (0.0-0.012) X10*3/uL Nucleated RBC % (auto) 0.0 (0.0-0.2) /100WBC Sodium 142 (135-145) mmol/L Potassium 2.9 L* (3.3-5.1) mmol/L Chloride 107 (96-108) mmol/L Carbon Dioxide 25 (22-29) mmol/L Anion Gap 13 (12-20) BUN 7 L (9-16) mg/dL Creatinine 0.77 (0.5-1.4) mg/dL Estim Creat Clear Calc 74.5 Estimated GFR > 60 Random Glucose 117 H (60-115) mg/dL Calcium 9.6 (8.4-10.2) mg/dL Magnesium 2.2 (1.6-2.6) mg/dL Total Bilirubin 0.5 (0.0-1.0) mg/dL AST 93 H (5-31) U/L ALT 71 H (0-31) U/L Alkaline Phosphatase 93 (39-117) U/L Total Protein 7.5 (6.5-8.0) g/dL Albumin 4.2 (3.5-5.0) g/dL Urine Color Yellow Urine Appearance Clear Urine pH 6.5 (5.0-9.0) Ur Specific [place] <= 1.005 (1.005-1.025) Urine Protein Negative (Neg-Trace) mg/dL Urine Glucose (UA) Negative (Negative) mg/dL Urine Ketones Negative (Negative) mg/dL Urine Blood Negative (Negative) Urine Nitrite Negative (Negative) Ur Leukocyte Esterase Small (1+) H (Negative) Urine RBC 0-2 (0-2) /HPF Urine WBC 6-10 H (0-5) /HPF Ur Squamous Epith Cells 0-2 (0-2) /HPF Urine Bacteria None Seen (None Seen) Hyaline Casts 0-2 (0-2) /LPF Influenza Type A (PCR) NEGATIVE (Negative) Influenza Type B (PCR) NEGATIVE (Negative) RSV RNA Qual (PCR) NEGATIVE (Negative) SARS-CoV-2 RNA (RT-PCR) NEGATIVE (Negative) Discharge Plan Discharge Prescriptions: No Action dextroamphetamine-amphetamine 20 mg tablet 10 mg PO BID@0700,1600 (DME) blood-glucose meter [Accu-Chek Guide Glucose Meter] Misc See Rx Instructions .ROUTE .MEDSUPPLY Qty: 1 0RF Rx Instructions: As directed (DME) Accu-Chek Guide test strips Strip See Rx Instructions .ROUTE .MEDSUPPLY Qty: 100 0RF Rx Instructions: As directed (DME) lancets [Accu-Chek Multiclix Lancet] Misc See Rx Instructions .ROUTE .MEDSUPPLY Qty: 100 0RF Rx Instructions: As directed levalbuterol tartrate [Xopenex HFA] 45 mcg/actuation HFA aerosol inhaler 2 puff inhalation Q4H PRN (Reason: Wheezing) lisinopril 20 mg tablet 1 tab PO DAILY prednisone 20 mg tablet 40 mg PO DAILY Qty: 10 0RF clonidine HCl 0.1 mg tablet 0.1 mg PO BID dextroamphetamine-amphetamine 20 mg capsule,extended release 24hr 1 cap PO DAILY@0700 risperidone 1 mg tablet 1 mg PO BEDTIME prazosin 1 mg capsule 1 mg PO BEDTIME benzonatate 100 mg capsule 100 mg PO BID PRN (Reason: cough) 7 Days Qty: 14 0RF Trulicity 3 mg/0.5 mL pen injector 3 mg subcut TH@0900 Tezspire 210 mg/1.91 mL (110 mg/mL) pen injector 3 mg subcut Q4W ipratropium-albuterol 0.5 mg-3 mg(2.5 mg base)/3 mL solution for nebulization 3 ml inhalation Q4H PRN (Reason: shortness of breath or wheezing) diphenhydramine HCl [Benadryl] 25 mg Capsule 25 mg PO TID PRN (Reason: Allergy Symptoms) ibuprofen 200 mg Tablet 400 mg PO Q8H PRN (Reason: Pain) doxycycline monohydrate 100 mg capsule 100 mg PO BID Qty: 7 0RF prednisone 20 mg tablet 20 mg PO DAILY Qty: 5 0RF Rx Instructions: Take with food Print Language: Latvian
[2024-05-16 21:49] VITALS: BP 133/75; PULSE 88; RESP 20; TEMP 36.9; O2SAT 96
[2024-05-16] MEDS: Albuterol Sulfate 7.5 MG, Albuterol Sulfate (0.083%) 2.5 MG 10 MG INHALE (21:55)
[2024-05-16] MEDS: methylPREDNISolone Sod Succ 125 MG/2 ML VIAL IVPUSH (21:55)
[2024-05-16] MEDS: Potassium Chloride Packet 20 MEQ PACKET 60 MEQ PO (21:55)
[2024-05-16] MEDS: Magnesium Sulfate/D5W 1 GM/100 ML PIGGYBACK IV (21:55)
[2024-05-16] MEDS: cefuroxime axetiL 250 MG TABLET PO (21:55)
[2024-05-16 22:01] VITALS: PULSE 94; RESP 18; O2SAT 97
--- NOTE | 2024-05-16 22:21 | PC.NURSE ---
#20 IV placed L-AC, meds administered as ordered
[2024-05-16] MEDS: Acetaminophen 325 MG TABLET 975 MG PO (22:37)
[2024-05-16 23:06] VITALS: O2SAT 95
[2024-05-16 23:15] VITALS: BP 142/86; PULSE 94; RESP 20; TEMP 36.6; O2SAT 95
--- NOTE | 2024-05-16 23:17 | MHC.EDTECH ---
Patient ambulated with a walking O2 sat of 95%,patient had no difficulty breathing,vitals taken at this time,RN/MD aware
[2024-05-16 23:51] VITALS: BP 126/69; PULSE 97; RESP 20; TEMP 36.7; O2SAT 94
== END 2024-05-16 23:45 | disposition home or self-care (01) ==
PROVIDERS: Physician Assistant Medical; Emergency Provider Emergency Medicine; PCP Internal Medicine
DX: J45.909 Unspecified asthma, uncomplicated (principal); E11.9 Type 2 diabetes mellitus without complications; Z79.4 Long term (current) use of insulin; Z79.899 Other long term (current) drug therapy; Z87.891 Personal history of nicotine dependence; Z03.818 Encounter for observation for suspected exposure to other biological agents ruled out
CPT/HCPCS: 0241U; 71046; 80053; 81001; 83735; 85025; 87086; 94640; 96374; 99284; 99285; J2919; J3475

== ENCOUNTER 2024-05-30 09:52 | Inpatient (IN) | payer BC, MEDICARE, SELFPAY ==
[2024-05-30] VITALS (10 sets, daily range): BP systolic 115–184; BP diastolic 64–111; PULSE 84–95; RESP 15–24; TEMP 36–36.8; O2SAT 89–97; BMI 29.2
--- NOTE | ~2024-05-30 | XR_ITS ---
EXAMINATION: XR CHEST CLINICAL INFORMATION: Short of breath COMPARISON: Chest radiograph from 05/16/2024 TECHNIQUE: 2 views of the chest were obtained. FINDINGS: Redemonstration of discoid atelectasis left lung base. Slight right basilar atelectasis. Slight bronchial thickening. No pneumothorax. Trachea is midline. Cardiac mediastinal silhouette is not enlarged. No large pleural effusion. Osseous structures are intact. Soft tissues are unremarkable. XR/XR chest 2V IMPRESSION: 1. Redemonstration of discoid atelectasis left lung base. 2. Slight right basilar atelectasis. 3. Slight bronchial thickening. Electronically signed by: Janett East MD 05/30/2024 12:13 PM EDT
--- NOTE | 2024-05-30 10:28 | ECG_ITS ---
Test Reason : SOB Blood Pressure : / mmHG Vent. Rate : 095 BPM Atrial Rate : 095 BPM P-R Int : 130 ms QRS Dur : 098 ms QT Int : 392 ms P-R-T Axes : 060 031 053 degrees QTc Int : 492 ms Normal sinus rhythm Nonspecific ST and T wave abnormality Prolonged QT Abnormal ECG When compared with ECG of 20-JUL-2023 11:55, Nonspecific T wave abnormality now evident in Lateral leads Referred By: Yenifer Dean Electronically Signed By:PERRI WOOD
[2024-05-30] MEDS: methylPREDNISolone Sod Succ 125 MG/2 ML VIAL 80 MG IVPUSH (10:33)
[2024-05-30] MEDS: Albuterol Sulfate 7.5 MG, Albuterol/Iprat 2.5/0.5MG 3 ML 3 ML INHALE (10:35)
[2024-05-30 10:50] LABS: MANUAL DIFF FLAG NO
[2024-05-30 10:56] LABS: INTERNATIONAL NORM RATIO 0.9 (0.9-1.1); Prothrombin Time 10.9 SEC (11.1-13.3)
[2024-05-30 10:59] LABS: Basophils Absolute Auto 0.1 X10*3/uL (0.0-0.2); Basophils Percent Auto 0.6 % (0-2); Eosinophils Absolute Auto 0.1 X10*3/uL (0.0-0.4); Eosinophils Percent Auto 0.5 % (0-4); Hematocrit 41.9 % (37.0-47.0); Hemoglobin 14.9 g/dl (12.0-16.0); Imm Gran Abs Auto 0.09 X10*3/uL (0.00-0.03); Imm Gran Pct Auto 0.7 % (0.0-0.4); Lymphocytes Absolute Auto 3.8 X10*3/uL (1.2-4.9); Lymphocytes Percent Auto 28.8 % (20-40); Mean Corpuscular HGB Conc 35.6 g/dl (31.0-35.0); Mean Corpuscular Hemoglobin 35.1 pg (27.0-33.0); Mean Corpuscular Volume 98.6 fL (80.0-98.0); Mean Platelet Volume 9.7 fL (9.4-12.3); Monocytes Absolute Auto 0.6 X10*3/uL (0.1-1.2); Monocytes Percent Auto 4.8 % (2-11); Neutrophils Absolute Auto 8.6 x10*3/uL (2.0-8.3); Neutrophils Percent Auto 64.6 % (45-73); Platelet Count 332 X10*3/uL (160-400); Red Blood Count 4.25 X10*6/uL (4.20-5.50); Red Cell Distribution Width 14.2 % (11.0-16.0); White Blood Count 13.2 X10*3/uL (4.8-10.8)
--- NOTE | 2024-05-30 10:59 | ED_ITS ---
HPI - SOB/Dyspnea General Chief Complaint: Dyspnea Stated Complaint: SOB - asthma Time Seen by Provider: 05/30/24 10:27 Source: patient Mode of arrival: ambulatory Limitations: no limitations History of Present Illness ED Provider: DANIELA REDMOND PA-C HPI Narrative: 53 year old female with pmhx significant for asthma, COPD not on home O2, etoh abuse, non-insulin dependent T2DM, ADHD, hypokalemia presents to the ED today for evaluation of SOB, dyspnea, and wheezing x1 week, worsening. Using her Zopinex inhaler at home with minimal relief. Admits to associated cough productive of yellow/ green sputum. No known sick contacts. Denies fever, chills, chest pain, palpitations, rashes. Related Data Home Medications ?Medication ?Instructions ?Recorded ?Confirmed dextroamphetamine-amphetamine 20 10 mg PO BID@0700,1400 07/26/20 05/30/24 mg tablet levalbuterol tartrate 45 2 puff inhalation Q4H PRN Wheezing 04/20/22 05/30/24 mcg/actuation aerosol inhaler (Xopenex HFA) clonidine HCl 0.1 mg tablet 0.1 mg PO BEDTIME 03/20/23 05/30/24 dextroamphetamine-amphetamine ER 1 cap PO DAILY@0700 03/20/23 05/30/24 20 mg 24hr capsule,extend release diphenhydramine HCl 25 mg capsule 25 mg PO BEDTIME PRN Sleep 03/05/24 05/30/24 (Benadryl) ipratropium 0.5 mg-albuterol 3 mg 3 ml inhalation Q4H PRN shortness 03/05/24 05/30/24 (2.5 mg base)/3 mL nebulization of breath or wheezing soln tezepelumab-ekko 210 mg/1.91 mL 210 mg subcut Q4W 03/05/24 05/30/24 (110 mg/mL) subcutaneous pen injector (Juan Cspire) calcium carbonate 500 mg PO DAILY 05/30/24 05/30/24 lisinopril 20 mg tablet 20 mg PO DAILY 05/30/24 05/30/24 metformin 500 mg tablet 500 mg PO BID 05/30/24 05/30/24 multivitamin 1 tab PO DAILY 05/30/24 05/30/24 potassium citrate 99 mg capsule 99 mg PO DAILY 05/30/24 05/30/24 prednisone 50 mg tablet 50 mg PO DAILY 05/30/24 05/30/24 tirzepatide 5 mg/0.5 mL 5 mg subcut TH 05/30/24 05/30/24 subcutaneous pen injector (Fernando) Previous Rx's ?Medication ?Instructions ?Recorded blood sugar diagnostic (Accu-Chek #100 ea 10/11/20 Guide test strips) blood-glucose meter (Accu-Chek #1 ea 10/11/20 Guide Glucose Meter) lancets (Accu-Chek Multiclix #100 ea 10/11/20 Lancet) Allergies Allergy/AdvReac Type Severity Reaction Status Date / Time hydromorphone [From DILAUDID] Allergy Severe SEIZURES Verified 05/30/24 10:03 oxycodone [OXYCODONE] Allergy Severe SEIZURES Verified 05/30/24 10:03 vancomycin Allergy Severe Rash Verified 05/30/24 10:03 gabapentin [GABAPENTIN] Allergy Intermediate MUSCLE ACHE Verified 05/30/24 10:03 albuterol Allergy Mild Trouble Verified 05/30/24 10:03 breathing;MDI use only bupropion [From WELLBUTRIN] Allergy Unknown SEIZURES Verified 05/30/24 10:03 phenytoin [Dilantin] Allergy Unknown Unknown Verified 05/30/24 10:03 azithromycin Allergy Hives Verified 05/30/24 10:03 Review of Systems 2 Review of Systems: Constitutional: No fever, chills, fatigue, night sweats, weight changes ENT/Mouth: No ear pain, hearing loss, nasal congestion, sinus pain, rhinorrhea, sore throat Eyes: No eye pain, swelling, redness, vision changes, discharge Cardio: No chest pain, palpitations, NEWSOME, orthopnea, peripheral edema Pulm: No dyspnea, hemoptysis, +SOB, +wheezing, +productive cough GI: No nausea, vomiting, hematemesis, abdominal pain, diarrhea, constipation, hematochezia, melena : No irregular bleeding, dysuria, frequency, urgency, hesitancy, hematuria, flank pain, urinary flow changes, urinary incontinence or retention MSK: No back pain, neck pain, joint pain, myalgias Skin: No lesions, rashes Neuro: No weakness, numbness, paresthesias, LOC, dizziness, headache Psych: No anxiety/panic, depression, SI/HI, AH/VH All other systems reviewed and are negative. [facility] Past Medical History Attestation statement: The following information was validated with the patient. Source: old records reviewed and nursing notes reviewed Medical History Bilateral knee pain Bilateral foot pain Colon cancer screening Annual physical exam Acute pneumonia Obese DMII (diabetes mellitus, type 2) Anxiety COPD (chronic obstructive pulmonary disease) Sleep apnea History of suicide attempt Asthma-COPD overlap syndrome HTN (hypertension) ADHD Epilepsy Fibromyalgia Tracheomalacia Cocaine abuse Alcohol abuse Asthma Surgical History Previous section History of cholecystectomy Family History Family History Father No problems noted. Mother Cervical cancer Mental health disorder Social History Social History Household Members: Spouse and Family Housing: House Are you a primary administrator health care facility to a significant other at home: Yes Do you presently have visiting nurse or other home services: No Alcohol intake: former Comment: pt sleeping Patient Tobacco Use Status: Former Tobacco user Tobacco use type: Cigarette Cigarettes Per Day: 25 Years Smoked: 20 Smoked in Last 30 Days: No e-Cigarette/Vaping Use: Currently Using Second Hand Smoke Exposure: No Use of substances other than those prescribed or required for medical reasons: Yes Substance Use Type: Marijuana Substance Use Frequency: Occasionally Last Used Substance: Weeks (ago) Currently Displaying Signs/Symptoms of Drug Intoxication Withdrawal: No Any prior treatment program specific to substance use: No Have you been hit, kicked, punched, or otherwise hurt by someone within the past year? If so, by whom?: No Do you feel safe in your current relationship?: Yes Is there a partner from a previous relationship who is making you feel unsafe now?: No Are you made to feel afraid or neglected: No Advance Directives: Yes Advance Directives on File: Yes Advance Directives Date on File: 11/05/20 Do you have a plan to hurt others: No Plan Recently lost weight without trying: No Nutrition Risks: No Nutritional Risk Patient : No : No Poor oral hygiene: No service: No Current occupational status: disabled Cognitive needs: Yes (Pt would like a cane ) Hearing needs: Yes (?hearing loss mostly from right ear.) Vision needs: Yes (Pt was seen 6 months and exam was good just need readig glasses.) Physical Exam 2 Vital Signs: Vital Signs: Last Vital Signs Temp 97.8 F 05/31/24 11:03 Pulse 75 05/31/24 11:03 Resp 20 05/31/24 11:03 BP 172/79 H 05/31/24 11:03 Pulse Ox 93 05/31/24 11:03 O2 Del Method Room Air 05/31/24 11:03 BMI result Body Mass Index 29.2 Hypertensive, tachypneic. Abfrile General: Well appearing, in no acute distress. Skin: Warm, dry, intact. No rashes or lesions. Head: Normocephalic, atraumatic. EENT: Hearing is intact b/l. Conjunctiva clear. Sclera is anicteric. PERRLA. EOM intact. Moist mucous membranes.? Neck: Supple without LAD. FROM. Trachea midline.? Cardiac: Chest wall symmetric. RRR. No MRG. No JVD. Lungs: Increased effort of breathing. no tripoding. diffuse expiratory wheezes throughout Ext: Upper and lower extremities atraumatic, without tenderness, deformity, swelling or erythema. Full ROM throughout. No calf tenderness b/l. Neuro: AOx3. Normal speech. CN 2-12 grossly intact. Strength 5/5 intact throughout. Sensation intact to light touch. NV intact distally. Ambulating with steady gait. Psych: Appropriate mood and affect. Responds appropriately to questions. Course Course Course Narrative: 1300 --CBC with leukocytosis to 13.2 without left shift. Likely secondary to steroid use. No concern for acute infection. Chemistry showing hypokalemia to 2.9 > p.o. and IV repletion ordered. No other acute electrolyte abnormality requiring intervention. No TRESSA. Chronically elevated liver enzymes secondary to ETOH abuse. No obstructive pattern. Initial troponin 3.3. Will repeat for delta. EKG showing normal sinus rhythm with a rate of 95 beats per minute, QT 392, QTC 492, QT is prolonged. No acute ischemic changes or ST elevations. Chest x-ray showing redemonstration of discoid atelectasis in left lung base, slight right basilar atelectasis and slight bronchial thickening. She was tested negative for COVID, flu, RSV. VBG pending. > patient has received 2 treatments of Ventolin per respiratory therapy. She was also received 120 mg IV Solu-Medrol and 2 g of magnesium IV. > on re-evaluation, patient continues to endorse shortness of breath. wheezes are still audible and she has expiratory wheezes throughout. Given continued symptoms despite treatment, will present to hospitalist for admission for suspected COPD exacerbation. Medications Administered Generic Name Dose Route Start Last Admin Trade Name Freq PRN Reason Stop Dose Admin Albuterol/Ipratropium 3 ml 05/30/24 16:00 05/31/24 07:37 Albuterol/Iprat 2.5/0.5mg 3 Ml Ampul.Neb INHALE 3 ml RQ4H WHILE AWAKE BEATRIZ Administration Amphetamine/Dextroamphetamine 20 mg 05/31/24 07:00 05/31/24 06:11 Dextroamphetamine/Amphetamine Xr 10 Mg Cap.Er.24h PO 20 mg DAILY@0700 BEATRIZ Administration Calcium Carbonate 500 mg 05/31/24 09:00 05/31/24 08:01 Calcium Oyster Shell Elemental 500 Mg Tablet PO 500 mg DAILY BEATRIZ Administration Clonidine HCl 0.1 mg 05/30/24 21:00 05/30/24 19:50 Clonidine Hcl 0.1 Mg Tablet PO 0.1 mg BEDTIME BEATRIZ Administration Protocol Enoxaparin Sodium 40 mg 05/30/24 13:00 05/30/24 13:21 Enoxaparin Sodium 40 Mg/0.4 Ml Syringe SUBCUT 40 mg Q24H BEATRIZ Administration Doxycycline Hyclate 100 mg/ 250 mls @ 166.67 mls/hr 05/30/24 13:30 05/31/24 02:37 Sodium Chloride IV Infused Q12H BEATRIZ Infusion Insulin Human Lispro 0 unit 05/30/24 16:30 05/31/24 08:00 Insulin Lispro 100 Unit/Ml 3 Ml Vial SUBCUT 4 unit QIDACHS BEATRIZ Administration Protocol Lisinopril 20 mg 05/31/24 09:00 05/31/24 08:01 Lisinopril 20 Mg Tablet PO 20 mg DAILY BEATRIZ Administration Protocol Methylprednisolone Sodium Succinate 20 mg 05/31/24 09:00 05/31/24 08:01 Methylprednisolone Sod Succ 40 Mg/Ml Vial IVPUSH 20 mg Q12H BEATRIZ Administration Multivitamins/Vitamin C 1 tab 05/31/24 09:00 05/31/24 08:01 Multivitamin Tablet PO 1 tab DAILY BEATRIZ Administration Sodium Chloride 3 ml 05/30/24 16:00 05/31/24 08:03 0.9 % Sodium Chloride Flush 3 Ml Syringe IVFLUSH 3 ml QSHIFT BEATRIZ Administration Discontinued Medications Generic Name Dose Route Start Last Admin Trade Name Leonid PRN Reason Stop Dose Admin Albuterol Sulfate 5 mg/ 7.5 mg 05/30/24 11:02 05/30/24 11:05 Albuterol Sulfate 2.5 mg INHALE 05/30/24 11:03 7.5 mg ONCE ONE Administration Albuterol Sulfate 7.5 mg/ 0 mg 05/30/24 10:27 05/30/24 10:35 Albuterol/Ipratropium 3 ml INHALE 05/30/24 10:28 10 each ONCE ONE Administration Magnesium Sulfate 2 gm in 50 mls @ 150 mls/hr 05/30/24 11:01 05/30/24 11:46 Magnesium Sulfate/H2o IV 05/30/24 11:20 Infused ONCE ONE Infusion Potassium Chloride 10 meq in 100 mls @ 100 mls/hr 05/30/24 11:15 05/30/24 14:56 Potassium Chloride/H20 IV 05/30/24 13:14 Infused Q1H BEATRIZ Infusion Insulin Glargine 7 unit 05/30/24 21:32 05/30/24 21:56 Insulin Glargine,Hum.Rec.Anlog 100 Unit/Ml 10 Ml Vial SUBCUT 05/30/24 21:33 7 unit ONCE ONE Administration Insulin Human Lispro 6 unit 05/30/24 18:26 05/30/24 18:31 Insulin Lispro 100 Unit/Ml 3 Ml Vial SUBCUT 05/30/24 18:27 6 unit ONCE ONE Administration Lorazepam 0.5 mg 05/30/24 18:27 05/30/24 18:55 Lorazepam 2 Mg/Ml Vial IVPUSH 05/30/24 18:28 0.5 mg ONCE ONE Administration Methylprednisolone Sodium Succinate 80 mg 05/30/24 10:23 05/30/24 10:33 Methylprednisolone Sod Succ 125 Mg/2 Ml Vial IVPUSH 05/30/24 10:24 80 mg ONCE ONE Administration Methylprednisolone Sodium Succinate 40 mg 05/30/24 11:01 05/30/24 11:11 Methylprednisolone Sod Succ 40 Mg/Ml Vial IVPUSH 05/30/24 11:02 40 mg ONCE ONE Administration Potassium Chloride 40 meq 05/30/24 11:17 05/30/24 11:53 Potassium Chloride Packet 20 Meq Packet PO 05/30/24 11:18 40 meq ONCE ONE Administration Medical Decision Making Medical Decision Making [facility] Narrative: 53 year old female with pmhx significant for asthma, COPD not on home O2, etoh abuse, non-insulin dependent T2DM, ADHD, hypokalemia presents to the ED today for evaluation of SOB, dyspnea, and wheezing x1 week, worsening. On arrival, patient hypertensive to 184/111, tachypneic to 24. Oxygen saturation varies between 92 and 94% on room air. Increased effort of breathing. no tripoding. diffuse expiratory wheezes throughout. No calf tenderness or pitting edema. Skin w/d/i. No rashes. Differential diagnosis includes copd/ asthma exacerbation, pneumonia, bronchitis, viral syndrome Plan for labs, vbg, viral testing, CXR, troponin, EKG, ED bronch protocol, IV steroids, frequent re-evaluation. Differential Diagnosis Differential Diagnoses: The differential diagnosis associated with the presentation includes As above Admission/Observation Consideration of admission/observation: Escalation of care including admission/observation considered Patient to be admitted to medicine for acute exacerbation of COPD. Consult Healthcare Provider Management of the patient was discussed with: Hospitalist (Dr. Tejada ) Lab Data [facility] Lab Attestation statement: I reviewed the patient's lab results. As above 05/31/24 05:01 05/31/24 05:01 Labs: Lab Results 05/30/24 Range/Units 10:46 WBC 13.2 H (4.8-10.8) X10*3/uL RBC 4.25 (4.20-5.50) X10*6/uL Hgb 14.9 (12.0-16.0) g/dl Hct 41.9 (37.0-47.0) % MCV 98.6 H (80.0-98.0) fL MCH 35.1 H (27.0-33.0) pg MCHC 35.6 H (31.0-35.0) g/dl RDW 14.2 (11.0-16.0) % Plt Count 332 (160-400) X10*3/uL MPV 9.7 (9.4-12.3) fL Immature Gran % (Auto) 0.7 H (0.0-0.4) % Neut % (Auto) 64.6 (45-73) % Lymph % (Auto) 28.8 (20-40) % Gibson % (Auto) 4.8 (2-11) % Eos % (Auto) 0.5 (0-4) % Baso % (Auto) 0.6 (0-2) % Lymph # (Auto) 3.8 (1.2-4.9) X10*3/uL Gibson # (Auto) 0.6 (0.1-1.2) X10*3/uL Eos # (Auto) 0.1 (0.0-0.4) X10*3/uL Baso # (Auto) 0.1 (0.0-0.2) X10*3/uL Abs Immat Gran (auto) 0.09 H (0.00-0.03) X10*3/uL Absolute Neuts (auto) 8.6 H (2.0-8.3) x10*3/uL Absolute Nucleated RBC 0.000 (0.0-0.012) X10*3/uL Nucleated RBC % (auto) 0.0 (0.0-0.2) /100WBC PT 10.9 L (11.1-13.3) SEC INR 0.9 (0.9-1.1) Sodium 143 (135-145) mmol/L Potassium 2.9 L* (3.3-5.1) mmol/L Chloride 107 (96-108) mmol/L Carbon Dioxide 24 (22-29) mmol/L Anion Gap 15 (12-20) BUN 11 (9-16) mg/dL Creatinine 0.72 (0.5-1.4) mg/dL Estim Creat Clear Calc 80.8 Estimated GFR > 60 Random Glucose 180 H (60-115) mg/dL Estimat Average Glucose 131 mg/dL Hemoglobin A1c % 6.2 H (<6.0) % Calcium 9.1 (8.4-10.2) mg/dL Magnesium 1.9 (1.6-2.6) mg/dL Total Bilirubin 0.4 (0.0-1.0) mg/dL AST 75 H (5-31) U/L ALT 55 H (0-31) U/L Alkaline Phosphatase 85 (39-117) U/L Troponin I High Sens 3.3 D (<3.5-17.0) ng/L Total Protein 6.9 (6.5-8.0) g/dL Albumin 3.9 (3.5-5.0) g/dL Influenza Type A (PCR) NEGATIVE (Negative) Influenza Type B (PCR) NEGATIVE (Negative) RSV RNA Qual (PCR) NEGATIVE (Negative) SARS-CoV-2 RNA (RT-PCR) NEGATIVE (Negative) Independent Interpretation I performed an independent interpretation of an: EKG and Plain X-Ray Interpretation: EKG showing normal sinus rhythm with a rate of 95 beats per minute, QT 392, QTC 492, no acute ischemic changes or ST elevations. CXR without focal infiltrate or consolidation, agree with radiologist's interpretation. Radiology Impression Discussion of test interpretation with radiology: I have reviewed the radiologist's reading. Radiologist Impression: EXAMINATION: XR CHEST CLINICAL INFORMATION: Short of breath COMPARISON: Chest radiograph from 05/16/2024 TECHNIQUE: 2 views of the chest were obtained. FINDINGS: Redemonstration of discoid atelectasis left lung base. Slight right basilar atelectasis. Slight bronchial thickening. No pneumothorax. Trachea is midline. Cardiac mediastinal silhouette is not enlarged. No large pleural effusion. Osseous structures are intact. Soft tissues are unremarkable. XR/XR chest 2V IMPRESSION: 1. Redemonstration of discoid atelectasis left lung base. 2. Slight right basilar atelectasis. 3. Slight bronchial thickening. Electronically signed by: Janett East MD 05/30/2024 12:13 PM EDT External Record Review External record reviewed: Inpatient record, Office record, Outpatient record, Prior outpatient labs, Prior outpatient radiology, Primary care record and Outside ED record Chronic Conditions Patient?s care impacted by: Other (asthma/ copd) Social Determinants Patient?s care significantly limited by Social Determinants of Health including: Other Social Determinant of Health Critical Care Time Critical Care Time Critical Care Time: Yes Total Critical Care Time: 31 Attestation: Critical care time in the amount of 31 minutes has been provided to the patient in terms of direct patient care, frequent reevaluation, consultation with hospitalist, review and interpretation of medical data and results, and management of potentially life-threatening conditions. This is all outside of any medical procedures. Discharge Plan Discharge Clinical Impression: Acute hypoxic respiratory failure, Acute exacerbation of COPD with asthma Patient Disposition: Admitted As Inpatient Interventions: Admission Worksheet (ED) Last Done: 05/30/24 16:25 Discharge Date/Time: 05/30/24 17:46
[2024-05-30] MEDS: Albuterol Sulfate 5 MG, Albuterol Sulfate (0.083%) 2.5 MG 7.5 MG INHALE (11:05)
[2024-05-30 11:11] LABS: Troponin-I High Sensitivity 3.3 ng/L (<3.5-17.0)
[2024-05-30] MEDS: methylPREDNISolone Sod Succ 40 MG/ML VIAL IVPUSH (11:11)
[2024-05-30] MEDS: Magnesium Sulfate/H2O 2 GM/50 ML PIGGYBACK IV (11:11)
[2024-05-30 11:15] LABS: Alanine Aminotransferase 55 U/L (0-31); Albumin Level 3.9 g/dL (3.5-5.0); Alkaline Phosphatase 85 U/L (39-117); Anion Gap 15 (12-20); Aspartate Amino Transferase 75 U/L (5-31); Bilirubin Total 0.4 mg/dL (0.0-1.0); Blood Urea Nitrogen 11 mg/dL (9-16); Calcium 9.1 mg/dL (8.4-10.2); Carbon Dioxide 24 mmol/L (22-29); Chloride 107 mmol/L (96-108); Creatinine Clr Calc Pharmacy 80.8; Estimated Glomerular Filt Rate > 60; Glucose Random 180 mg/dL (60-115); Magnesium 1.9 mg/dL (1.6-2.6); Potassium 2.9 mmol/L (3.3-5.1); Sodium 143 mmol/L (135-145); Total Protein 6.9 g/dL (6.5-8.0)
[2024-05-30] MEDS: Potassium Chloride Packet 20 MEQ PACKET 40 MEQ PO (11:53)
[2024-05-30] MEDS: Potassium Chloride/H20 10 MEQ/100 ML PIGGYBACK 100 MEQ IV ×2 (11:54→13:21)
--- NOTE | 2024-05-30 12:34 | PM.IMHP ---
History of Present Illness Date of Service: 05/30/24 Attending physician on admission: Christos Snider Chief Complaint: SOB Pt is a 53-year-old female with a PMH significant for?HTN, HLD, COPD not on home O2, dxi-anrywtr-mwszuojvl type 2 diabetes, TEO not on CPAP, fibromyalgia, hx of MRSA infection, alcohol use disorder, 20+ pack year smoking hx now vaping THC, anxiety, and depression who presents to the ED with?worsening SOB, difficulty breathing, and wheezing. Patient reports symptoms began approximately 1 week ago and started SOB, NEWSOME, and occasionally productive cough only minimally alleviated by home inhalers and nebulizer. This morning patient awoke to significantly worsening symptoms with audibly wheezing. Patient completed 2 updraft treatments and used home maintenance and rescue inhalers to no effect. Cough was productive of yellowish/greenish sputum. Home pulse ox showed O2 sat of 84%, and patient decided to come in for further evaluation and treatment in the ED. patient was last at the ED 1 week ago for a UTI and was treated with cefuroxime x5 days which patient states she completed. Continues to experience some mild discomfort with urination that radiates to back. Fever or chills. Chest tightness associated with deep breathing and cough. No chest pain. Mild nausea this morning, but no vomiting. Denies abdominal pain. In the ED pt was tachycardic up to 95, tachypneic up to 24, and initially hypertensive at 184/111. Under HEENT be in exam patient was noted to desat as low as 85% on RA. Labs were significant for leukocytosis of 13.2, potassium 2.9, AST 75, and ALT 55. CXR showed redemonstration of left lung base discoid atelectasis, slight right basilar atelectasis, and slight bronchial thickening. EKG demonstrated normal sinus rhythm with QTc of 492 but without evidence of significant ST elevations or depressions. Pt was treated with Solu-Medrol, DuoNebs, Mag sulfate, potassium chloride 40 mEq p.o. and 10 mEq IV. Pt will be admitted to the hospital for treatment and further evaluation of acute hypoxic respiratory failure in the setting of COPD exacerbation. Review of Systems Review of Systems: SOB, NEWSOME, wheezing Productive cough Urinary discomfort radiating to back Nausea, no vomiting Chest tightness associated with deep Breathing and cough no fever, chills Denies abdominal pain No chest pain [facility] Medical History Bilateral knee pain Bilateral foot pain Colon cancer screening Annual physical exam Acute pneumonia Obese DMII (diabetes mellitus, type 2) Anxiety COPD (chronic obstructive pulmonary disease) Sleep apnea History of suicide attempt Asthma-COPD overlap syndrome HTN (hypertension) ADHD Epilepsy Fibromyalgia Tracheomalacia Cocaine abuse Alcohol abuse Asthma Family History Father No problems noted. Mother Cervical cancer Mental health disorder Surgical History Previous section History of cholecystectomy Social History Household Members: Spouse and Children Housing: House Are you a primary animal caretaker to a significant other at home: Yes Do you presently have visiting nurse or other home services: No Alcohol intake: former Comment: pt sleeping Patient Tobacco Use Status: Former Tobacco user Tobacco use type: Cigarette Cigarettes Per Day: 25 Years Smoked: 20 e-Cigarette/Vaping Use: Currently Using Second Hand Smoke Exposure: No Substance Use Type: Marijuana Advance Directives: Yes Advance Directives on File: Yes Advance Directives Date on File: 11/05/20 Do you have a plan to hurt others: No Plan service: No Current occupational status: disabled Cognitive needs: Yes (Pt would like a cane ) Hearing needs: Yes (?hearing loss mostly from right ear.) Vision needs: Yes (Pt was seen 6 months and exam was good just need readig glasses.) Meds Allergies Allergy/AdvReac Type Severity Reaction Status Date / Time hydromorphone [From DILAUDID] Allergy Severe SEIZURES Verified 05/30/24 10:03 oxycodone [OXYCODONE] Allergy Severe SEIZURES Verified 05/30/24 10:03 vancomycin Allergy Severe Rash Verified 05/30/24 10:03 gabapentin [GABAPENTIN] Allergy Intermediate MUSCLE ACHE Verified 05/30/24 10:03 albuterol Allergy Mild Trouble Verified 05/30/24 10:03 breathing;MDI use only bupropion [From WELLBUTRIN] Allergy Unknown SEIZURES Verified 05/30/24 10:03 phenytoin [Dilantin] Allergy Unknown Unknown Verified 05/30/24 10:03 azithromycin Allergy Hives Verified 05/30/24 10:03 Active Medications: Current Medications Potassium Chloride (Potassium Chloride/H20) 10 meq in 100 mls @ 100 mls/hr IV Q1H BEATRIZ Stop: 05/30/24 13:14 Last Admin: 05/30/24 11:54 Dose: 100 mls/hr Home Medications ?Medication ?Instructions ?Recorded ?Confirmed ?Last Taken ?Type dextroamphetamine-amphetamine 20 10 mg PO BID@0700,1400 07/26/20 05/30/24 05/30/24 History mg tablet levalbuterol tartrate 45 2 puff inhalation Q4H PRN Wheezing 04/20/22 05/30/24 04/20/22 History mcg/actuation aerosol inhaler (Xopenex HFA) clonidine HCl 0.1 mg tablet 0.1 mg PO BEDTIME 03/20/23 05/30/24 05/29/24 History dextroamphetamine-amphetamine ER 1 cap PO DAILY@0700 03/20/23 05/30/24 05/30/24 History 20 mg 24hr capsule,extend release diphenhydramine HCl 25 mg capsule 25 mg PO BEDTIME PRN Sleep 03/05/24 05/30/24 Unknown History (Benadryl) ipratropium 0.5 mg-albuterol 3 mg 3 ml inhalation Q4H PRN shortness 03/05/24 05/30/24 Unknown History (2.5 mg base)/3 mL nebulization of breath or wheezing soln tezepelumab-ekko 210 mg/1.91 mL 210 mg subcut Q4W 03/05/24 05/30/24 05/14/24 History (110 mg/mL) subcutaneous pen injector (Tezspire) calcium carbonate 500 mg PO DAILY 05/30/24 05/30/24 05/30/24 History lisinopril 20 mg tablet 20 mg PO DAILY 05/30/24 05/30/24 05/30/24 History metformin 500 mg tablet 500 mg PO BID 05/30/24 05/30/24 05/30/24 History multivitamin 1 tab PO DAILY 05/30/24 05/30/24 05/30/24 History potassium citrate 99 mg capsule 99 mg PO DAILY 05/30/24 05/30/24 05/30/24 History prednisone 50 mg tablet 50 mg PO DAILY 05/30/24 05/30/24 05/30/24 History tirzepatide 5 mg/0.5 mL 5 mg subcut TH 05/30/24 05/30/24 05/23/24 History subcutaneous pen injector (Chrisunradha) Physical Exam Vital Signs and Narrative: Vital Signs: Last Vital Signs Temp 98.2 F 05/30/24 10:01 Pulse 93 05/30/24 12:09 Resp 20 05/30/24 12:09 BP 132/76 05/30/24 12:09 Pulse Ox 92 05/30/24 12:09 O2 Del Method Room Air 05/30/24 12:09 BMI result Body Mass Index 29.2 General: AOx3, no acute distress Resp: Bilateral diffuse expiratory wheezing, audibly wheezing. Speaking in full sentences. Not in respiratory distress CVS: S1, S2, RRR GI: +BS, NT, no distention Skin: Warm, dry Neuro: Cranial nerves II-XII grossly intact bilaterally. Motor grossly intact bilaterally Back: Mild right CVA tenderness Extremities: No edema Psych: Appropriate affect Results Labs 05/30/24 10:46 05/30/24 10:46 Labs: Laboratory Results - last 24 hr 05/30/24 10:46 MCV 98.6 H MCH 35.1 H MCHC 35.6 H RDW 14.2 Plt Count 332 MPV 9.7 Immature Gran % (Auto) 0.7 H Neut % (Auto) 64.6 Lymph % (Auto) 28.8 [place] % (Auto) 4.8 Eos % (Auto) 0.5 Baso % (Auto) 0.6 Lymph # (Auto) 3.8 [place] # (Auto) 0.6 Eos # (Auto) 0.1 Baso # (Auto) 0.1 Abs Immat Gran (auto) 0.09 H Absolute Neuts (auto) 8.6 H Absolute Nucleated RBC 0.000 Nucleated RBC % (auto) 0.0 PT 10.9 L INR 0.9 Anion Gap 15 Estim Creat Clear Calc 80.8 Estimated GFR > 60 Random Glucose 180 H Calcium 9.1 Magnesium 1.9 Total Bilirubin 0.4 AST 75 H ALT 55 H Alkaline Phosphatase 85 Troponin I High Sens 3.3 D Total Protein 6.9 Albumin 3.9 Imaging Radiologist's Impressions: Impressions Chest X-Ray 05/30/24 11:35 IMPRESSION: 1. Redemonstration of discoid atelectasis left lung base. 2. Slight right basilar atelectasis. 3. Slight bronchial thickening. Electronically signed by: Janett East MD 05/30/2024 12:13 PM EDT RP Assessment and Plan (1) Hypoxic respiratory failure: Status: Acute (2) Acute exacerbation of chronic obstructive pulmonary disease (COPD): Status: Acute Plan Pt is a 53-year-old female with a PMH significant for?HTN, HLD, COPD not on home O2, gte-balqqsp-sazpqqruq type 2 diabetes, TEO not on CPAP, fibromyalgia, hx of MRSA infection, alcohol use disorder, 20+ pack year smoking hx now vaping THC, anxiety, and depression who presents to the ED with?worsening SOB, difficulty breathing, and wheezing. Pt will be admitted to the hospital for treatment and further evaluation of acute hypoxic respiratory failure in the setting of COPD exacerbation. Acute hypoxic respiratory failure in the setting of acute COPD exacerbation Patient with increased SOB, NEWSOME, wheezing, cough, desatting to mid 80s on RA during exam, audibly wheezing Minimal improvement with treatments in the ED Will treat with DuoNebs, Solu-Medrol, guaifenesin Doxycycline for pleiotropic effects, no pneumonia, no sepsis CXR negative, no fever; tachycardia secondary to albuterol use, leukocytosis secondary to home prednisone use Supplemental O2 >92, wean as tolerated Monitor respiratory status Urinary discomfort Pt diagnosed with UA on 05/16 treated with cefuroxime x5 days Improved but continues to experience mild urinary discomfort radiating to back Will check UA HTN Reasonably controlled on current therapies Continue lisinopril, clonidine Smo-nbiaevb-hfeoheftg type 2 diabetes Hold metformin Sliding-scale insulin Diabetic diet TEO Not on CPAP ADHD Continue Adderall Full Code Attending:?Dr. Kovacs DVT Prophylaxis: Lovenox Pt will require a hospitalization of at least two nights for treatment of?acute hypoxic respiratory failure in the setting of COPD exacerbation. Has patient has failed outpatient therapy with home meds and not had significant improvement with treatment in the ED, will require hospital level care for administration of DuoNebs, IV steroids, and supplemental O2. Quality Stroke Does the patient have a stroke diagnosis?: No VTE Prior VTE?: No VTE Risk Level:: Medical - moderate - high VTE Device Contraindication: Treatment Not Indicated VTE Drug Contraindication: N/A - Med Ordered
--- NOTE | 2024-05-30 12:38 | PC.NURSE ---
New IV started (20g) for infusion of potassium
[2024-05-30 12:44] LABS: Influenza A PCR NEGATIVE (Negative); Influenza B PCR NEGATIVE (Negative); Resp Syncy Virus RNA Qual PCR NEGATIVE (Negative); SARS COV2 PCR INHOUSE NEGATIVE (Negative)
[2024-05-30] MEDS: Enoxaparin Sodium 40 MG/0.4 ML SYRINGE SUBCUT (13:21)
--- NOTE | 2024-05-30 13:23 | PHA.MEDREC ---
Pharmacy Consult ? Medication Reconciliation Pharmacy has completed the medication reconciliation. Spoke to patient at bedside, able to name all of her medications unprompted. States she takes only one clonidine tablet at bedtime. She also noted she takes lisinopril for blood pressure, and when questioned about the time between last fill she insisted she had it at home. She also noted she takes metformin 500mg BID, however medication not in claim history at all. She has taken 2 days worth of her prednisone prescription, takes her Mounjaro for diabetes on and gets her Tezspire injection on the of each month. All PO meds taken this morning
[2024-05-30 13:30] LABS: Appearance Urine Clear; Color Urine Yellow; Glucose Urine UA >=1000 mg/dL (Negative); Leukocyte Esterase Urine Negative (Negative); Nitrite Urine Negative (Negative); UMIC TRIGGER UACC YES; Urine Blood Negative (Negative); Urine Ketones Trace mg/dL (Negative); Urine Protein Negative (Neg-Trace)
[2024-05-30 13:41] LABS: Bacteria Urine None Seen (None Seen); Hyaline Casts Urine 0-2 /LPF (0-2); RBC Urine 0-2 /HPF (0-2); Squamous Epithelial Cell Urine 0-2 /HPF (0-2); WBC Urine 0-5 /HPF (0-5)
[2024-05-30 14:04] LABS: VBG Base Excess -1.5 mmol/L; VBG HCO3 22 mmol/L (22-26); VBG pCO2 35 mmHg; VBG pO2 38 mmHg
[2024-05-30 14:04] LABS: Venous Blood Gas Refer to POC result
[2024-05-30] MEDS: Doxycycline Hyclate 100 MG in 0.9 % Sodium Chloride 250 ML 166.67 MG IV (14:23)
[2024-05-30] MEDS: Albuterol/Iprat 2.5/0.5MG 3 ML AMPUL.NEB INHALE ×2 (15:59→19:31)
[2024-05-30] MEDS: 0.9 % Sodium Chloride Flush 3 ML SYRINGE IVFLUSH ×2 (16:04→18:55)
[2024-05-30 16:56] LABS: Glucose, Whole Blood 456 mg/dL (60-115)
[2024-05-30 17:41] LABS: Glucose, Whole Blood 451 mg/dL (60-115)
--- NOTE | 2024-05-30 17:42 | PC.NURSE ---
contacted DANA Wood about high POC 456. He asked to give pt 12 units of lispro. This RN went to go get the insulin but transport had taken the pt upstairs.
[2024-05-30] MEDS: Insulin Lispro 100 UNIT/ML 3 ML VIAL SUBCUT ×2 (18:30→19:50)
[2024-05-30] MEDS: Insulin Lispro 100 UNIT/ML 3 ML VIAL 6 UNIT SUBCUT (18:31)
[2024-05-30] MEDS: LORazepam 2 MG/ML VIAL 0.5 MG IVPUSH (18:55)
[2024-05-30 19:43] LABS: Glucose, Whole Blood 329 mg/dL (60-115)
[2024-05-30] MEDS: cloNIDine HCL 0.1 MG TABLET PO (19:50)
[2024-05-30 20:17] LABS: Anion Gap 16 (12-20); Blood Urea Nitrogen 11 mg/dL (9-16); Calcium 8.9 mg/dL (8.4-10.2); Carbon Dioxide 20 mmol/L (22-29); Chloride 107 mmol/L (96-108); Creatinine Clr Calc Pharmacy 67.7; Estimated Glomerular Filt Rate > 60; Glucose Random 344 mg/dL (60-115); Potassium 3.5 mmol/L (3.3-5.1); Sodium 139 mmol/L (135-145)
[2024-05-30 21:44] LABS: Glucose, Whole Blood 256 mg/dL (60-115)
[2024-05-30] MEDS: Insulin Glargine,Hum.rec.anlog 100 UNIT/ML 10 ML VIAL 7 UNIT SUBCUT (21:56)
[2024-05-31] VITALS (10 sets, daily range): BP systolic 132–172; BP diastolic 73–88; PULSE 74–88; RESP 14–20; TEMP 36.4–37.2; O2SAT 92–97
[2024-05-31] MEDS: Doxycycline Hyclate 100 MG in 0.9 % Sodium Chloride 250 ML 166.67 MG IV ×2 (01:04→13:22)
[2024-05-31 05:25] LABS: Estimated Average Glucose 131 mg/dL; Hemoglobin A1c % 6.2 % (<6.0)
[2024-05-31 05:50] LABS: Hematocrit 38.5 % (37.0-47.0); Hemoglobin 13.1 g/dl (12.0-16.0); Mean Corpuscular Hemoglobin 34.6 pg (27.0-33.0); Mean Corpuscular Volume 101.6 fL (80.0-98.0); Mean Platelet Volume 9.8 fL (9.4-12.3); Platelet Count 311 X10*3/uL (160-400); Red Blood Count 3.79 X10*6/uL (4.20-5.50); Red Cell Distribution Width 14.3 % (11.0-16.0); White Blood Count 17.4 X10*3/uL (4.8-10.8)
[2024-05-31 06:08] LABS: Anion Gap 14 (12-20); Blood Urea Nitrogen 13 mg/dL (9-16); Carbon Dioxide 21 mmol/L (22-29); Chloride 108 mmol/L (96-108); Creatinine Clr Calc Pharmacy 79.7; Estimated Glomerular Filt Rate > 60; Glucose Random 231 mg/dL (60-115); Potassium 4.1 mmol/L (3.3-5.1); Sodium 139 mmol/L (135-145)
[2024-05-31] MEDS: Dextroamphetamine/Amphetamine XR 10 MG CAP.ER.24H 20 MG PO (06:11)
[2024-05-31 07:17] LABS: Glucose, Whole Blood 249 mg/dL (60-115)
[2024-05-31] MEDS: Albuterol/Iprat 2.5/0.5MG 3 ML AMPUL.NEB INHALE ×3 (07:37→19:33)
[2024-05-31] MEDS: Insulin Lispro 100 UNIT/ML 3 ML VIAL SUBCUT ×4 (08:00→21:00)
[2024-05-31] MEDS: Multivitamin TABLET 1 TAB PO (08:01)
[2024-05-31] MEDS: lisinopriL 20 MG TABLET PO (08:01)
[2024-05-31] MEDS: Calcium Oyster Shell Elemental 500 MG TABLET PO (08:01)
[2024-05-31] MEDS: methylPREDNISolone Sod Succ 40 MG/ML VIAL 20 MG IVPUSH ×2 (08:01→21:00)
[2024-05-31] MEDS: 0.9 % Sodium Chloride Flush 3 ML SYRINGE IVFLUSH ×3 (08:03→21:01)
[2024-05-31 08:04] LABS: Magnesium 2.2 mg/dL (1.6-2.6)
--- NOTE | 2024-05-31 09:34 | P.PNIM_ITS ---
Subjective Subjective Date of Service: 05/31/24 Interval History: c/o wheezing + dyspnea, improved from yesterday nonproductive cough no fever Review of Systems Review of Systems: Yes all other systems are reviewed and are negative Physical Exam 2 Vital Signs: Vital Signs: Last Vital Signs Temp 98.9 F 05/31/24 07:11 Pulse 88 05/31/24 07:40 Resp 14 05/31/24 07:40 BP 166/88 H 05/31/24 07:11 Pulse Ox 93 05/31/24 07:11 O2 Del Method Room Air 05/31/24 07:11 BMI result Body Mass Index 29.2 Gen: in no acute distress HEENT: sclera anicteric, moist mucus membranes Neck: supple Lungs: extensive inspiratory and expiratory wheezing bilaterally Heart: regular rate and rhythm, no murmurs Abd: soft, non-tender, non-distended Ext: no edema Skin: warm/well-perfused Neuro: alert and oriented x3, no focal findings Psych: appropriate affect Objective Data Active Medications Acetaminophen (Acetaminophen 325 Mg Tablet) 650 mg PO Q6H PRN PRN Reason: Pain, Mild (Pain Scale 1-3), fever or headache Albuterol/Ipratropium (Albuterol/Iprat 2.5/0.5mg 3 Ml Ampul.Neb) 3 ml INHALE RQ4H WHILE AWAKE FORMERLY [facility], [facility]1983 Last Admin: 05/31/24 07:37 Dose: 3 ml Documented By: LATRICE Albuterol/Ipratropium (Albuterol/Iprat 2.5/0.5mg 3 Ml Ampul.Neb) 3 ml INHALE RQ4H WHILE AWAKE PRN PRN Reason: Shortness of Breath/Wheezing Amphetamine/Dextroamphetamine (Dextroamphetamine/Amphetamine Xr 10 Mg Cap.Er.24h) 20 mg PO DAILY@0700 [facility], [facility]1983 Last Admin: 05/31/24 06:11 Dose: 20 mg Documented By: MAGDA Amphetamine/Dextroamphetamine (Amphetamine Mixed Salts 20 Mg Tablet) 10 mg PO BID@0700,1400 [facility], [facility]–1983 Calcium Carbonate (Calcium Carbonate 750 Mg Tab.Chew) 750 mg PO Q4H PRN PRN Reason: Heartburn Calcium Carbonate (Calcium Oyster Shell Elemental 500 Mg Tablet) 500 mg PO DAILY [facility], [facility]1983 Last Admin: 05/31/24 08:01 Dose: 500 mg Documented By: RENETTA Clonidine HCl (Clonidine Hcl 0.1 Mg Tablet) 0.1 mg PO BEDTIME [facility], [facility]; Protocol Last Admin: 05/30/24 19:50 Dose: 0.1 mg Documented By: MAGDA Diphenhydramine HCl (Diphenhydramine Hcl 25 Mg Capsule) 25 mg PO BEDTIME PRN PRN Reason: Sleep Enoxaparin Sodium (Enoxaparin Sodium 40 Mg/0.4 Ml Syringe) 40 mg SUBCUT Q24H [facility], [facility]1983 Last Admin: 05/30/24 13:21 Dose: 40 mg Documented By: CARLI Glucose (Glucose Gel 15 Gm Gel..Gram.) 15 gm PO Q15M PRN; Protocol PRN Reason: per Hypoglycemia Standing Ord. Guaifenesin/Dextromethorphan (Guaifenesin Dm 200/20/10 Ml 10 Ml Syrup) 10 ml PO Q4H PRN PRN Reason: Cough Doxycycline Hyclate 100 mg/ (Sodium Chloride) 250 mls @ 166.67 mls/hr IV Q12H [facility], [facility] Last Infusion: 05/31/24 02:37 Dose: Infused Documented By: MAGDA Dextrose (D10) 250 mls @ 750 mls/hr IV Q15M PRN; Protocol PRN Reason: per Hypoglycemia Standing Ord. Insulin Human Lispro (Insulin Lispro 100 Unit/Ml 3 Ml Vial) 0 unit SUBCUT QIDACHS [facility], [facility]; Protocol Last Admin: 05/31/24 08:00 Dose: 4 unit Documented By: RENETTA Lisinopril (Lisinopril 20 Mg Tablet) 20 mg PO DAILY [facility], [facility]; Protocol Last Admin: 05/31/24 08:01 Dose: 20 mg Documented By: RENETTA Melatonin (Melatonin 3 Mg Tablet) 6 mg PO BEDTIME PRN PRN Reason: Insomnia Methylprednisolone Sodium Succinate (Methylprednisolone Sod Succ 40 Mg/Ml Vial) 20 mg IVPUSH Q12H [facility] Last Admin: 05/31/24 08:01 Dose: 20 mg Documented By: RENETTA Multivitamins/Vitamin C (Multivitamin Tablet) 1 tab PO DAILY [facility], [facility] Last Admin: 05/31/24 08:01 Dose: 1 tab Documented By: RENETTA Sodium Chloride (0.9 % Sodium Chloride Flush 3 Ml Syringe) 3 ml IVFLUSH QSHIFT [facility], [facility]1983 Last Admin: 05/31/24 08:03 Dose: 3 ml Documented By: RENETTA Labs 05/31/24 05:01 05/31/24 05:01 Labs: Laboratory Results - last 24 hr 05/30/24 05/30/24 05/30/24 10:46 13:23 14:00 MCV 98.6 H MCH 35.1 H MCHC 35.6 H RDW 14.2 Plt Count 332 MPV 9.7 Immature Gran % (Auto) 0.7 H Neut % (Auto) 64.6 Lymph % (Auto) 28.8 [place] % (Auto) 4.8 Eos % (Auto) 0.5 Baso % (Auto) 0.6 Lymph # (Auto) 3.8 [place] # (Auto) 0.6 Eos # (Auto) 0.1 Baso # (Auto) 0.1 Abs Immat Gran (auto) 0.09 H Absolute Neuts (auto) 8.6 H Absolute Nucleated RBC 0.000 Nucleated RBC % (auto) 0.0 PT 10.9 L INR 0.9 VBG pH 7.40 VBG pCO2 35 VBG pO2 38 VBG HCO3 22 VBG O2 Saturation 69.0 VBG Base Excess -1.5 Anion Gap 15 Estim Creat Clear Calc 80.8 Estimated GFR > 60 POC Glucose Random Glucose 180 H Estimat Average Glucose 131 Hemoglobin A1c % 6.2 H Calcium 9.1 Magnesium 1.9 Total Bilirubin 0.4 AST 75 H ALT 55 H Alkaline Phosphatase 85 Troponin I High Sens 3.3 D Total Protein 6.9 Albumin 3.9 Urine Color Yellow Urine Appearance Clear Urine pH 7.0 Ur Specific [place] 1.010 Urine Protein Negative Urine Glucose (UA) >=1000 H Urine Ketones Trace Urine Blood Negative Urine Nitrite Negative Ur Leukocyte Esterase Negative Urine RBC 0-2 Urine WBC 0-5 Ur Squamous Epith Cells 0-2 Urine Bacteria None Seen Hyaline Casts 0-2 Influenza Type A (PCR) NEGATIVE Influenza Type B (PCR) NEGATIVE RSV RNA Qual (PCR) NEGATIVE SARS-CoV-2 RNA (RT-PCR) NEGATIVE 05/30/24 05/30/24 05/30/24 16:53 17:33 19:31 MCV MCH MCHC RDW Plt Count MPV Immature Gran % (Auto) Neut % (Auto) Lymph % (Auto) [place] % (Auto) Eos % (Auto) Baso % (Auto) Lymph # (Auto) [place] # (Auto) Eos # (Auto) Baso # (Auto) Abs Immat Gran (auto) Absolute Neuts (auto) Absolute Nucleated RBC Nucleated RBC % (auto) PT INR VBG pH VBG pCO2 VBG pO2 VBG HCO3 VBG O2 Saturation VBG Base Excess Anion Gap 16 Estim Creat Clear Calc 67.7 Estimated GFR > 60 POC Glucose 456 H* 451 H* Random Glucose 344 H Estimat Average Glucose Hemoglobin A1c % Calcium 8.9 Magnesium Total Bilirubin AST ALT Alkaline Phosphatase Troponin I High Sens Total Protein Albumin Urine Color Urine Appearance Urine pH Ur Specific [place] Urine Protein Urine Glucose (UA) Urine Ketones Urine Blood Urine Nitrite Ur Leukocyte Esterase Urine RBC Urine WBC Ur Squamous Epith Cells Urine Bacteria Hyaline Casts Influenza Type A (PCR) Influenza Type B (PCR) RSV RNA Qual (PCR) SARS-CoV-2 RNA (RT-PCR) 05/30/24 05/30/24 05/31/24 19:38 21:40 05:01 MCV 101.6 H MCH 34.6 H MCHC 34.0 RDW 14.3 Plt Count 311 MPV 9.8 Immature Gran % (Auto) Neut % (Auto) Lymph % (Auto) [place] % (Auto) Eos % (Auto) Baso % (Auto) Lymph # (Auto) [place] # (Auto) Eos # (Auto) Baso # (Auto) Abs Immat Gran (auto) Absolute Neuts (auto) Absolute Nucleated RBC 0.000 Nucleated RBC % (auto) 0.0 PT INR VBG pH VBG pCO2 VBG pO2 VBG HCO3 VBG O2 Saturation VBG Base Excess Anion Gap 14 Estim Creat Clear Calc 79.7 Estimated GFR > 60 POC Glucose 329 H 256 H Random Glucose 231 H Estimat Average Glucose Hemoglobin A1c % Calcium 9.0 Magnesium 2.2 Total Bilirubin AST ALT Alkaline Phosphatase Troponin I High Sens Total Protein Albumin Urine Color Urine Appearance Urine pH Ur Specific [place] Urine Protein Urine Glucose (UA) Urine Ketones Urine Blood Urine Nitrite Ur Leukocyte Esterase Urine RBC Urine WBC Ur Squamous Epith Cells Urine Bacteria Hyaline Casts Influenza Type A (PCR) Influenza Type B (PCR) RSV RNA Qual (PCR) SARS-CoV-2 RNA (RT-PCR) 05/31/24 07:05 MCV MCH MCHC RDW Plt Count MPV Immature Gran % (Auto) Neut % (Auto) Lymph % (Auto) [place] % (Auto) Eos % (Auto) Baso % (Auto) Lymph # (Auto) [place] # (Auto) Eos # (Auto) Baso # (Auto) Abs Immat Gran (auto) Absolute Neuts (auto) Absolute Nucleated RBC Nucleated RBC % (auto) PT INR VBG pH VBG pCO2 VBG pO2 VBG HCO3 VBG O2 Saturation VBG Base Excess Anion Gap Estim Creat Clear Calc Estimated GFR POC Glucose 249 H Random Glucose Estimat Average Glucose Hemoglobin A1c % Calcium Magnesium Total Bilirubin AST ALT Alkaline Phosphatase Troponin I High Sens Total Protein Albumin Urine Color Urine Appearance Urine pH Ur Specific [place] Urine Protein Urine Glucose (UA) Urine Ketones Urine Blood Urine Nitrite Ur Leukocyte Esterase Urine RBC Urine WBC Ur Squamous Epith Cells Urine Bacteria Hyaline Casts Influenza Type A (PCR) Influenza Type B (PCR) RSV RNA Qual (PCR) SARS-CoV-2 RNA (RT-PCR) Assessment and Plan (1) Acute exacerbation of chronic obstructive pulmonary disease (COPD): Status: Acute Plan d2 53yo F with HTN, HLD, COPD, DM2, TEO not on CPAP, FM, hx MRSA, AUD, tobacco abuse now in remission, anxiety, depression, ADHD presenting with progressive dyspnea and wheezing admitted for AHRF due to COPD exacerbation AHRF due to COPD exacerbation - continue doxycycline 05/30-, methylprednisoone 05/30-, standing/prn nebs HTN - continue lisinopril + clonidine DM2 with hyperglycemia from steroids, A1c 6.2 - correction-dose lispro, DM diet, hold MTF hypoK - repleted ADHD - Adderall VTE ppx - enoxaparin dispo - eventual home In my clinical judgment, the patient requires continued inpatient hospitalization for the following reasons: extensive wheezing Total time managing care of this patient today: 35 minutes. Quality Stroke Does the patient have a stroke diagnosis?: No VTE Prior VTE?: No VTE Risk Level:: Medical - moderate - high VTE Device Contraindication: Treatment Not Indicated VTE Drug Contraindication: N/A - Med Ordered
--- NOTE | 2024-05-31 11:14 | MHC.CM.PN ---
PT LIVES W/ AND FAMILY PT IS INDEPEDENT HAS OWN RIDE HOME DC PLAN HOME NO SERVIES
[2024-05-31 11:17] LABS: Glucose, Whole Blood 245 mg/dL (60-115)
[2024-05-31] MEDS: Amphetamine Mixed Salts 10 MG TABLET PO (13:22)
[2024-05-31] MEDS: Enoxaparin Sodium 40 MG/0.4 ML SYRINGE SUBCUT (13:22)
[2024-05-31] MEDS: guaiFENesin DM 200/20/10 ML 10 ML SYRUP PO (15:29)
[2024-05-31 15:56] LABS: Glucose, Whole Blood 305 mg/dL (60-115)
[2024-05-31 19:58] LABS: Glucose, Whole Blood 232 mg/dL (60-115)
[2024-05-31] MEDS: cloNIDine HCL 0.1 MG TABLET PO (21:01)
[2024-05-31] MEDS: Melatonin 3 MG TABLET 6 MG PO (21:01)
[2024-06-01] VITALS (8 sets, daily range): BP systolic 132–184; BP diastolic 80–95; PULSE 66–88; RESP 16–20; TEMP 36.6–37.2; O2SAT 90–94
[2024-06-01] MEDS: Doxycycline Hyclate 100 MG in 0.9 % Sodium Chloride 250 ML 166.67 MG IV ×2 (01:11→13:31)
[2024-06-01] MEDS: diphenhydrAMINE HCL 25 MG CAPSULE PO (01:11)
[2024-06-01 07:14] LABS: Glucose, Whole Blood 203 mg/dL (60-115)
[2024-06-01] MEDS: Amphetamine Mixed Salts 10 MG TABLET PO ×2 (07:24→13:37)
[2024-06-01] MEDS: Dextroamphetamine/Amphetamine XR 10 MG CAP.ER.24H 20 MG PO (07:24)
[2024-06-01] MEDS: 0.9 % Sodium Chloride Flush 3 ML SYRINGE IVFLUSH ×3 (07:25→20:17)
[2024-06-01] MEDS: Albuterol/Iprat 2.5/0.5MG 3 ML AMPUL.NEB INHALE ×4 (07:46→18:35)
[2024-06-01 07:53] LABS: Hematocrit 42.5 % (37.0-47.0); Hemoglobin 14.7 g/dl (12.0-16.0); Mean Corpuscular HGB Conc 34.6 g/dl (31.0-35.0); Mean Corpuscular Hemoglobin 35.2 pg (27.0-33.0); Mean Corpuscular Volume 101.7 fL (80.0-98.0); Mean Platelet Volume 10.2 fL (9.4-12.3); Platelet Count 333 X10*3/uL (160-400); Red Blood Count 4.18 X10*6/uL (4.20-5.50); Red Cell Distribution Width 14.5 % (11.0-16.0); White Blood Count 17.9 X10*3/uL (4.8-10.8)
[2024-06-01] MEDS: Insulin Lispro 100 UNIT/ML 3 ML VIAL SUBCUT ×4 (07:59→20:14)
[2024-06-01] MEDS: Calcium Oyster Shell Elemental 500 MG TABLET PO (08:00)
[2024-06-01] MEDS: Multivitamin TABLET 1 TAB PO (08:00)
[2024-06-01] MEDS: methylPREDNISolone Sod Succ 40 MG/ML VIAL 20 MG IVPUSH (08:00)
[2024-06-01] MEDS: lisinopriL 20 MG TABLET PO (08:00)
[2024-06-01 08:09] LABS: Anion Gap 13 (12-20); Blood Urea Nitrogen 18 mg/dL (9-16); Calcium 9.2 mg/dL (8.4-10.2); Carbon Dioxide 24 mmol/L (22-29); Chloride 105 mmol/L (96-108); Creatinine Clr Calc Pharmacy 80.8; Estimated Glomerular Filt Rate > 60; Glucose Random 178 mg/dL (60-115); Magnesium 2.1 mg/dL (1.6-2.6); Potassium 4.3 mmol/L (3.3-5.1); Sodium 138 mmol/L (135-145)
[2024-06-01 08:45] LABS: Folate 7.7 ng/mL (> or = 4.0); Vitamin B12 241 pg/mL (200-900)
[2024-06-01 11:14] LABS: Glucose, Whole Blood 217 mg/dL (60-115)
[2024-06-01] MEDS: Enoxaparin Sodium 40 MG/0.4 ML SYRINGE SUBCUT (13:26)
--- NOTE | 2024-06-01 14:01 | P.PNIM_ITS ---
Subjective Subjective Date of Service: 06/01/24 Interval History: Remains short of breath with minimal exertion Review of Systems Denies chest pain Admits shortness of breath with minimal exertion (improved since admission) Denies nausea vomiting diarrhea Denies fever chills Physical Exam 2 Vital Signs: Vital Signs: Last Vital Signs Temp 98 F 06/01/24 06:57 Pulse 88 06/01/24 11:17 Resp 16 06/01/24 11:17 BP 143/85 H 06/01/24 06:57 Pulse Ox 93 06/01/24 06:57 O2 Del Method Room Air 06/01/24 06:57 BMI result Body Mass Index 29.2 Const: Other: Awake alert oriented x3 in no acute distress able to speak in full sentences Resp: Other: Diminished at bases with diffuse expiratory wheezes lower lobe Cardio: Other: No S4; positive S1-S2; no S3 murmurs rubs or gallops GI: Other: Soft nontender nondistended normoactive bowel sounds Neuro: Other: Cranial nerves 2-12 grossly intact as tested. Motor is 5/5 all extremities. Sensation is intact. Cognition appropriate Extrem: Other: No edema bilaterally Objective Data Active Medications Acetaminophen (Acetaminophen 325 Mg Tablet) 650 mg PO Q6H PRN PRN Reason: Pain, Mild (Pain Scale 1-3), fever or headache Albuterol/Ipratropium (Albuterol/Iprat 2.5/0.5mg 3 Ml Ampul.Neb) 3 ml INHALE RQ4H WHILE AWAKE [facility] Last Admin: 06/01/24 11:16 Dose: 3 ml Documented By: LATRICE Albuterol/Ipratropium (Albuterol/Iprat 2.5/0.5mg 3 Ml Ampul.Neb) 3 ml INHALE RQ4H WHILE AWAKE PRN PRN Reason: Shortness of Breath/Wheezing Amphetamine/Dextroamphetamine (Dextroamphetamine/Amphetamine Xr 10 Mg Cap.Er.24h) 20 mg PO DAILY@0700 [facility] Last Admin: 06/01/24 07:24 Dose: 20 mg Documented By: TOI Amphetamine/Dextroamphetamine (Amphetamine Mixed Salts 10 Mg Tablet) 10 mg PO BID@0700,1400 [facility] Last Admin: 06/01/24 13:37 Dose: 10 mg Documented By: TOI Calcium Carbonate (Calcium Carbonate 750 Mg Tab.Chew) 750 mg PO Q4H PRN PRN Reason: Heartburn Calcium Carbonate (Calcium Oyster Shell Elemental 500 Mg Tablet) 500 mg PO DAILY [facility] Last Admin: 06/01/24 08:00 Dose: 500 mg Documented By: TOI Clonidine HCl (Clonidine Hcl 0.1 Mg Tablet) 0.1 mg PO BEDTIME [facility]; Protocol Last Admin: 05/31/24 21:01 Dose: 0.1 mg Documented By: OPAL Diphenhydramine HCl (Diphenhydramine Hcl 25 Mg Capsule) 25 mg PO BEDTIME PRN PRN Reason: Sleep Last Admin: 06/01/24 01:11 Dose: 25 mg Documented By: OPAL Enoxaparin Sodium (Enoxaparin Sodium 40 Mg/0.4 Ml Syringe) 40 mg SUBCUT Q24H [facility] Last Admin: 06/01/24 13:26 Dose: 40 mg Documented By: TOI Glucose (Glucose Gel 15 Gm Gel..Gram.) 15 gm PO Q15M PRN; Protocol PRN Reason: per Hypoglycemia Standing Ord. Guaifenesin/Dextromethorphan (Guaifenesin Dm 200/20/10 Ml 10 Ml Syrup) 10 ml PO Q4H PRN PRN Reason: Cough Last Admin: 05/31/24 15:29 Dose: 10 ml Documented By: RENETTA Doxycycline Hyclate 100 mg/ (Sodium Chloride) 250 mls @ 166.67 mls/hr IV Q12H [facility] Last Admin: 06/01/24 13:31 Dose: 166.67 mls/hr Documented By: TOI Dextrose (D10) 250 mls @ 750 mls/hr IV Q15M PRN; Protocol PRN Reason: per Hypoglycemia Standing Ord. Insulin Human Lispro (Insulin Lispro 100 Unit/Ml 3 Ml Vial) 0 unit SUBCUT QIDACHS [facility]; Protocol Last Admin: 06/01/24 11:52 Dose: 6 unit Documented By: TOI Lisinopril (Lisinopril 20 Mg Tablet) 20 mg PO DAILY [facility]; Protocol Last Admin: 06/01/24 08:00 Dose: 20 mg Documented By: TOI Lorazepam (Lorazepam 0.5 Mg Tablet) 0.5 mg PO BEDTIME PRN PRN Reason: Insomnia Melatonin (Melatonin 3 Mg Tablet) 6 mg PO BEDTIME PRN PRN Reason: Insomnia Last Admin: 05/31/24 21:01 Dose: 6 mg Documented By: OPAL Methylprednisolone Sodium Succinate (Methylprednisolone Sod Succ 125 Mg/2 Ml Vial) 60 mg IVPUSH Q6H [facility] Last Admin: 06/01/24 10:14 Dose: Not Given Documented By: TOI Non-Admin Reason: Physician Approved Multivitamins/Vitamin C (Multivitamin Tablet) 1 tab PO DAILY [facility] Last Admin: 06/01/24 08:00 Dose: 1 tab Documented By: TOI Sodium Chloride (0.9 % Sodium Chloride Flush 3 Ml Syringe) 3 ml IVFLUSH QSHIFT [facility] Last Admin: 06/01/24 07:25 Dose: 3 ml Documented By: TOI Labs 06/01/24 07:22 06/01/24 07:22 Labs: Laboratory Results - last 24 hr 05/31/24 05/31/24 06/01/24 15:48 19:45 06:56 MCV MCH MCHC RDW Plt Count MPV Absolute Nucleated RBC Nucleated RBC % (auto) Anion Gap Estim Creat Clear Calc Estimated GFR POC Glucose 305 H 232 H 203 H Random Glucose Calcium Magnesium Vitamin B12 Folate 06/01/24 06/01/24 07:22 11:06 MCV 101.7 H MCH 35.2 H MCHC 34.6 RDW 14.5 Plt Count 333 MPV 10.2 Absolute Nucleated RBC 0.000 Nucleated RBC % (auto) 0.0 Anion Gap 13 Estim Creat Clear Calc 80.8 Estimated GFR > 60 POC Glucose 217 H Random Glucose 178 H Calcium 9.2 Magnesium 2.1 Vitamin B12 241 Folate 7.7 Assessment and Plan (1) Acute exacerbation of chronic obstructive pulmonary disease (COPD): Status: Acute (2) DMII (diabetes mellitus, type 2): Status: Acute Plan 53yo F with HTN, HLD, COPD, DM2, TEO not on CPAP, FM, hx MRSA, AUD, tobacco abuse now in remission, anxiety, depression, ADHD presenting with progressive dyspnea and wheezing; x-ray consistent with right lower lobe pneumonia 1. Acute hypoxic respiratory failure secondary to COPD exacerbation -doxycycline (3) -methylprednisolone 60 mg IV q.6 hours -DuoNebs q.4 hours while awake 2.HTN -acceptable control on current therapy -adjust as indicated 3.DM2 with hyperglycemia (steroids) -acceptable control off metformin -lispro correctional scale -adjust as indicated Full code Lovenox Requires ongoing hospitalization for IV steroids/antibiotics to treat COPD exacerbation Quality Stroke Does the patient have a stroke diagnosis?: No VTE Prior VTE?: No VTE Risk Level:: Medical - moderate - high VTE Device Contraindication: Treatment Not Indicated VTE Drug Contraindication: N/A - Med Ordered
[2024-06-01 16:32] LABS: Glucose, Whole Blood 223 mg/dL (60-115)
[2024-06-01] MEDS: methylPREDNISolone Sod Succ 125 MG/2 ML VIAL 60 MG IVPUSH ×2 (16:59→21:58)
[2024-06-01 19:34] LABS: Glucose, Whole Blood 187 mg/dL (60-115)
[2024-06-01] MEDS: cloNIDine HCL 0.1 MG TABLET PO (20:14)
[2024-06-01] MEDS: LORazepam 0.5 MG TABLET PO (21:58)
[2024-06-02] VITALS (9 sets, daily range): BP systolic 137–176; BP diastolic 86–90; PULSE 66–92; RESP 14–20; TEMP 36.2–36.7; O2SAT 91–94
[2024-06-02] MEDS: Doxycycline Hyclate 100 MG in 0.9 % Sodium Chloride 250 ML 166.67 MG IV ×2 (01:21→13:53)
[2024-06-02] MEDS: methylPREDNISolone Sod Succ 125 MG/2 ML VIAL 60 MG IVPUSH ×4 (04:33→21:42)
[2024-06-02 06:21] LABS: MANUAL DIFF FLAG NO
[2024-06-02 06:26] LABS: Basophils Absolute Auto 0.1 X10*3/uL (0.0-0.2); Basophils Percent Auto 0.3 % (0-2); Hematocrit 41.2 % (37.0-47.0); Hemoglobin 14.1 g/dl (12.0-16.0); Imm Gran Abs Auto 0.41 X10*3/uL (0.00-0.03); Imm Gran Pct Auto 2.5 % (0.0-0.4); Lymphocytes Absolute Auto 1.4 X10*3/uL (1.2-4.9); Lymphocytes Percent Auto 8.6 % (20-40); Mean Corpuscular HGB Conc 34.2 g/dl (31.0-35.0); Mean Corpuscular Hemoglobin 34.7 pg (27.0-33.0); Mean Corpuscular Volume 101.5 fL (80.0-98.0); Mean Platelet Volume 9.9 fL (9.4-12.3); Monocytes Absolute Auto 0.5 X10*3/uL (0.1-1.2); Monocytes Percent Auto 2.8 % (2-11); Neutrophils Absolute Auto 14.2 x10*3/uL (2.0-8.3); Neutrophils Percent Auto 85.8 % (45-73); Platelet Count 340 X10*3/uL (160-400); Red Blood Count 4.06 X10*6/uL (4.20-5.50); Red Cell Distribution Width 14.3 % (11.0-16.0); White Blood Count 16.6 X10*3/uL (4.8-10.8)
[2024-06-02 07:08] LABS: Anion Gap 15 (12-20); Blood Urea Nitrogen 22 mg/dL (9-16); Calcium 9.3 mg/dL (8.4-10.2); Carbon Dioxide 23 mmol/L (22-29); Chloride 104 mmol/L (96-108); Creatinine Clr Calc Pharmacy 58.7; Estimated Glomerular Filt Rate 59; Glucose Fasting 320 mg/dL (60-99); Potassium 4.2 mmol/L (3.3-5.1); Sodium 138 mmol/L (135-145)
[2024-06-02 07:29] LABS: Glucose, Whole Blood 299 mg/dL (60-115)
[2024-06-02] MEDS: Albuterol/Iprat 2.5/0.5MG 3 ML AMPUL.NEB INHALE ×4 (07:35→19:54)
[2024-06-02] MEDS: Amphetamine Mixed Salts 10 MG TABLET PO ×2 (07:39→13:52)
[2024-06-02] MEDS: Dextroamphetamine/Amphetamine XR 10 MG CAP.ER.24H 20 MG PO (07:39)
[2024-06-02] MEDS: 0.9 % Sodium Chloride Flush 3 ML SYRINGE IVFLUSH ×2 (07:40→21:44)
[2024-06-02] MEDS: Insulin Lispro 100 UNIT/ML 3 ML VIAL SUBCUT ×4 (07:58→21:43)
[2024-06-02] MEDS: Multivitamin TABLET 1 TAB PO (07:59)
[2024-06-02] MEDS: lisinopriL 20 MG TABLET PO (07:59)
[2024-06-02] MEDS: Calcium Oyster Shell Elemental 500 MG TABLET PO (07:59)
[2024-06-02 11:11] LABS: Glucose, Whole Blood 234 mg/dL (60-115)
--- NOTE | 2024-06-02 11:43 | HO.PM.IMPN ---
Subjective Subjective Date of Service: 06/02/24 Interval History: Breathing somewhat improved but still speaking in short sentences. Review of Systems Denies chest pain Admits shortness of breath with minimal exertion (improved since admission) Denies nausea vomiting diarrhea Denies fever chills Physical Exam Vital Signs: Vital Signs: Last Vital Signs Temp 97.4 F 06/02/24 08:00 Pulse 76 06/02/24 11:27 Resp 14 06/02/24 11:27 BP 176/88 H 06/02/24 08:00 Pulse Ox 93 06/02/24 08:00 O2 Del Method Room Air 06/02/24 08:00 BMI result Body Mass Index 29.2 Const: Other: Awake alert oriented x3 in no acute distress able to speak in full sentences Resp: Other: Diminished at bases with diffuse expiratory wheezes lower lobes Cardio: Other: No S4; positive S1-S2; no S3 murmurs rubs or gallops GI: Other: Soft nontender nondistended normoactive bowel sounds Neuro: Other: Cranial nerves 2-12 grossly intact as tested. Motor is 5/5 all extremities. Sensation is intact. Cognition appropriate Extrem: Other: No edema bilaterally Objective Data Active Medications Acetaminophen (Acetaminophen 325 Mg Tablet) 650 mg PO Q6H PRN PRN Reason: Pain, Mild (Pain Scale 1-3), fever or headache Albuterol/Ipratropium (Albuterol/Iprat 2.5/0.5mg 3 Ml Ampul.Neb) 3 ml INHALE RQ4H WHILE AWAKE [facility] Last Admin: 06/02/24 11:27 Dose: 3 ml Documented By: LATRICE Albuterol/Ipratropium (Albuterol/Iprat 2.5/0.5mg 3 Ml Ampul.Neb) 3 ml INHALE RQ4H WHILE AWAKE PRN PRN Reason: Shortness of Breath/Wheezing Amphetamine/Dextroamphetamine (Dextroamphetamine/Amphetamine Xr 10 Mg Cap.Er.24h) 20 mg PO DAILY@0700 [facility] Last Admin: 06/02/24 07:39 Dose: 20 mg Documented By: TOI Amphetamine/Dextroamphetamine (Amphetamine Mixed Salts 10 Mg Tablet) 10 mg PO BID@0700,1400 [facility] Last Admin: 06/02/24 07:39 Dose: 10 mg Documented By: TOI Calcium Carbonate (Calcium Carbonate 750 Mg Tab.Chew) 750 mg PO Q4H PRN PRN Reason: Heartburn Calcium Carbonate (Calcium Oyster Shell Elemental 500 Mg Tablet) 500 mg PO DAILY [facility] Last Admin: 06/02/24 07:59 Dose: 500 mg Documented By: TOI Clonidine HCl (Clonidine Hcl 0.1 Mg Tablet) 0.1 mg PO BEDTIME [facility]; Protocol Last Admin: 06/01/24 20:14 Dose: 0.1 mg Documented By: OPAL Diphenhydramine HCl (Diphenhydramine Hcl 25 Mg Capsule) 25 mg PO BEDTIME PRN PRN Reason: Sleep Last Admin: 06/01/24 01:11 Dose: 25 mg Documented By: OPAL Enoxaparin Sodium (Enoxaparin Sodium 40 Mg/0.4 Ml Syringe) 40 mg SUBCUT Q24H [facility] Last Admin: 06/01/24 13:26 Dose: 40 mg Documented By: TOI Glucose (Glucose Gel 15 Gm Gel..Gram.) 15 gm PO Q15M PRN; Protocol PRN Reason: per Hypoglycemia Standing Ord. Guaifenesin/Dextromethorphan (Guaifenesin Dm 200/20/10 Ml 10 Ml Syrup) 10 ml PO Q4H PRN PRN Reason: Cough Last Admin: 05/31/24 15:29 Dose: 10 ml Documented By: RENETTA Doxycycline Hyclate 100 mg/ (Sodium Chloride) 250 mls @ 166.67 mls/hr IV Q12H [facility] Last Infusion: 06/02/24 02:54 Dose: Infused Documented By: OPAL Dextrose (D10) 250 mls @ 750 mls/hr IV Q15M PRN; Protocol PRN Reason: per Hypoglycemia Standing Ord. Insulin Human Lispro (Insulin Lispro 100 Unit/Ml 3 Ml Vial) 0 unit SUBCUT QIDACHS [facility]; Protocol Last Admin: 06/02/24 07:58 Dose: 9 unit Documented By: TOI Lisinopril (Lisinopril 20 Mg Tablet) 20 mg PO DAILY [facility]; Protocol Last Admin: 06/02/24 07:59 Dose: 20 mg Documented By: TOI Lorazepam (Lorazepam 0.5 Mg Tablet) 0.5 mg PO BEDTIME PRN PRN Reason: Insomnia Last Admin: 06/01/24 21:58 Dose: 0.5 mg Documented By: OPAL Melatonin (Melatonin 3 Mg Tablet) 6 mg PO BEDTIME PRN PRN Reason: Insomnia Last Admin: 05/31/24 21:01 Dose: 6 mg Documented By: OPAL Methylprednisolone Sodium Succinate (Methylprednisolone Sod Succ 125 Mg/2 Ml Vial) 60 mg IVPUSH Q6H [facility] Last Admin: 06/02/24 10:09 Dose: 60 mg Documented By: TOI Multivitamins/Vitamin C (Multivitamin Tablet) 1 tab PO DAILY [facility] Last Admin: 06/02/24 07:59 Dose: 1 tab Documented By: TOI Sodium Chloride (0.9 % Sodium Chloride Flush 3 Ml Syringe) 3 ml IVFLUSH QSHIFT [facility] Last Admin: 06/02/24 07:40 Dose: 3 ml Documented By: TOI Labs 06/02/24 05:18 06/02/24 05:18 Labs: Laboratory Results - last 24 hr 06/01/24 06/01/24 06/02/24 16:14 19:18 05:18 MCV 101.5 H MCH 34.7 H MCHC 34.2 RDW 14.3 Plt Count 340 MPV 9.9 Immature Gran % (Auto) 2.5 H Neut % (Auto) 85.8 H Lymph % (Auto) 8.6 L [place] % (Auto) 2.8 Eos % (Auto) 0.0 Baso % (Auto) 0.3 Lymph # (Auto) 1.4 [place] # (Auto) 0.5 Eos # (Auto) 0.0 Baso # (Auto) 0.1 Abs Immat Gran (auto) 0.41 H Absolute Neuts (auto) 14.2 H Absolute Nucleated RBC 0.000 Nucleated RBC % (auto) 0.0 Anion Gap 15 Estim Creat Clear Calc 58.7 Estimated GFR 59 POC Glucose 223 H 187 H Fasting Glucose 320 H Calcium 9.3 06/02/24 06/02/24 07:17 11:00 MCV MCH MCHC RDW Plt Count MPV Immature Gran % (Auto) Neut % (Auto) Lymph % (Auto) [place] % (Auto) Eos % (Auto) Baso % (Auto) Lymph # (Auto) [place] # (Auto) Eos # (Auto) Baso # (Auto) Abs Immat Gran (auto) Absolute Neuts (auto) Absolute Nucleated RBC Nucleated RBC % (auto) Anion Gap Estim Creat Clear Calc Estimated GFR POC Glucose 299 H 234 H Fasting Glucose Calcium Assessment and Plan (1) Acute hypoxic respiratory failure: Status: Acute (2) Acute exacerbation of chronic obstructive pulmonary disease (COPD): Status: Acute Plan 53yo F with HTN, HLD, COPD, DM2, TEO not on CPAP, FM, hx MRSA, AUD, tobacco abuse now in remission, anxiety, depression, ADHD presenting with progressive dyspnea and wheezing; x-ray consistent with right lower lobe pneumonia 1. Acute hypoxic respiratory failure secondary to COPD exacerbation -doxycycline (4) -methylprednisolone 60 mg IV q.6 hours -DuoNebs q.4 hours while awake -encourage ambulation as tolerated 2.HTN -acceptable control on current therapy -adjust as indicated 3.DM2 with hyperglycemia (steroids) -acceptable control off metformin -lispro correctional scale -adjust as indicated Full code Lovenox Requires ongoing hospitalization for IV steroids/antibiotics to treat COPD exacerbation Quality Stroke Does the patient have a stroke diagnosis?: No VTE Prior VTE?: No VTE Risk Level:: Medical - moderate - high VTE Device Contraindication: Treatment Not Indicated VTE Drug Contraindication: N/A - Med Ordered
[2024-06-02] MEDS: Enoxaparin Sodium 40 MG/0.4 ML SYRINGE SUBCUT (13:52)
[2024-06-02 15:53] LABS: Glucose, Whole Blood 402 mg/dL (60-115)
[2024-06-02] MEDS: Cyclobenzaprine HCl 5 MG TABLET PO (18:05)
[2024-06-02] MEDS: guaiFENesin DM 200/20/10 ML 10 ML SYRUP PO ×2 (18:05→21:43)
[2024-06-02 20:05] LABS: Glucose, Whole Blood 249 mg/dL (60-115)
[2024-06-02] MEDS: cloNIDine HCL 0.1 MG TABLET PO (20:05)
[2024-06-02] MEDS: LORazepam 0.5 MG TABLET PO (21:43)
[2024-06-03] MEDS: Doxycycline Hyclate 100 MG in 0.9 % Sodium Chloride 250 ML 166.67 MG IV (02:25)
[2024-06-03 03:31] VITALS: BP 157/74; PULSE 75; RESP 18; TEMP 36; O2SAT 93
[2024-06-03] MEDS: methylPREDNISolone Sod Succ 125 MG/2 ML VIAL 60 MG IVPUSH ×2 (03:58→09:27)
[2024-06-03] MEDS: guaiFENesin DM 200/20/10 ML 10 ML SYRUP PO (03:58)
[2024-06-03 07:18] VITALS: BP 149/79; PULSE 78; RESP 20; TEMP 36.7; O2SAT 91
[2024-06-03 07:25] LABS: Glucose, Whole Blood 434 mg/dL (60-115)
--- NOTE | 2024-06-03 07:29 | PC.NURSE ---
BS 434 Dr. Sellers notified
[2024-06-03 07:36] VITALS: PULSE 74; RESP 20; O2SAT 91
[2024-06-03] MEDS: Albuterol/Iprat 2.5/0.5MG 3 ML AMPUL.NEB INHALE ×2 (07:36→11:37)
[2024-06-03] MEDS: Insulin Lispro 100 UNIT/ML 3 ML VIAL SUBCUT ×2 (07:57→12:16)
[2024-06-03] MEDS: Multivitamin TABLET 1 TAB PO (07:58)
[2024-06-03] MEDS: Dextroamphetamine/Amphetamine XR 10 MG CAP.ER.24H 20 MG PO (07:58)
[2024-06-03] MEDS: Calcium Oyster Shell Elemental 500 MG TABLET PO (07:58)
[2024-06-03] MEDS: lisinopriL 20 MG TABLET PO (07:58)
[2024-06-03] MEDS: Amphetamine Mixed Salts 10 MG TABLET PO (07:59)
[2024-06-03] MEDS: 0.9 % Sodium Chloride Flush 3 ML SYRINGE IVFLUSH (07:59)
[2024-06-03] MEDS: metFORMIN HCl 500 MG TABLET PO (09:27)
[2024-06-03 10:01] LABS: Glucose, Whole Blood 162 mg/dL (60-115)
--- NOTE | 2024-06-03 11:02 | MHC.CM.PN ---
pt dcd today self care
[2024-06-03 11:25] LABS: Glucose, Whole Blood 187 mg/dL (60-115)
[2024-06-03 11:37] VITALS: PULSE 80; RESP 17; O2SAT 97
--- NOTE | 2024-06-03 11:47 | PM.DS ---
DS: Providers Provider Date of Service: 06/03/24 Date of admission: 05/30/24 12:58 Date of discharge: 06/03/24 Primary care physician: Philip Purcell MD DS: Diagnosis Discharge Diagnosis (1) Acute hypoxic respiratory failure: Status: Acute (2) Acute exacerbation of chronic obstructive pulmonary disease (COPD): Status: Acute DS: Summary Hospital Course Hospital Course: 53-year-old female with a PMH significant for?HTN, HLD, COPD not on home O2, [id number] type 2 diabetes, TEO not on CPAP, fibromyalgia, hx of MRSA infection, alcohol use disorder, 20+ pack year smoking hx now vaping THC, anxiety, and depression who presents to the ED with?worsening SOB, difficulty breathing, and wheezing. Patient reports symptoms began approximately 1 week ago and started SOB, NEWSOME, and occasionally productive cough only minimally alleviated by home inhalers and nebulizer. This morning patient awoke to significantly worsening symptoms with audibly wheezing. Patient completed 2 updraft treatments and used home maintenance and rescue inhalers to no effect. Cough was productive of yellowish/greenish sputum. Home pulse ox showed O2 sat of 84%, and patient decided to come in for further evaluation and treatment in the ED. patient was last at the ED 1 week ago for a UTI and was treated with cefuroxime x5 days which patient states she completed. Continues to experience some mild discomfort with urination that radiates to back. Fever or chills. Chest tightness associated with deep breathing and cough. No chest pain. Mild nausea this morning, but no vomiting. Denies abdominal pain. In the ED pt was tachycardic up to 95, tachypneic up to 24, and initially hypertensive at 184/111. Under HEENT be in exam patient was noted to desat as low as 85% on RA. Labs were significant for leukocytosis of 13.2, potassium 2.9, AST 75, and ALT 55. CXR showed redemonstration of left lung base discoid atelectasis, slight right basilar atelectasis, and slight bronchial thickening. EKG demonstrated normal sinus rhythm with QTc of 492 but without evidence of significant ST elevations or depressions. Pt was treated with Solu-Medrol, DuoNebs, Mag sulfate, potassium chloride 40 mEq p.o. and 10 mEq IV. Pt will be admitted to the hospital for treatment and further evaluation of acute hypoxic respiratory failure in the setting of COPD exacerbation. Hospital course Patient admitted to general medical floor and started on pulse dose methylprednisolone and doxycycline along with aggressive DuoNeb therapies. Over the next 72 hours she improved and had no oxygen requirement. At this point in time she is medically acceptable be discharged home to resume treatments at home complete a course of doxy as well as prednisone taper. Time Attestation Discharge Coordination Time (in mins): 35 Quality: Safe Use of Opioids Does Pt have an Active Cancer Diagnosis on the Problem List?: No Quality: Stroke Does the patient have a stroke diagnosis?: No Physical Exam Vital Signs: Vital Signs: Last Vital Signs Temp 98.1 F 06/03/24 07:18 Pulse 80 06/03/24 11:37 Resp 17 06/03/24 11:37 BP 149/79 H 06/03/24 07:18 Pulse Ox 91 L 06/03/24 07:18 O2 Del Method Room Air 06/03/24 07:18 BMI result Body Mass Index 29.2 Const: Other: Awake alert oriented x3 in no acute distress able to speak in full sentences Resp: Other: Diminished at bases with diffuse expiratory wheezes lower lobes Cardio: Other: No S4; positive S1-S2; no S3 murmurs rubs or gallops GI: Other: Soft nontender nondistended normoactive bowel sounds Neuro: Other: Cranial nerves 2-12 grossly intact as tested. Motor is 5/5 all extremities. Sensation is intact. Cognition appropriate Extrem: Other: No edema bilaterally DS: Data Data Completed and Pending Completed studies during hospitalization [Text1]: Procedures Detoxification Services for Substance Abuse Treatment (10/08/20) Labs on day of discharge: Laboratory Results - last 24 hr 06/02/24 06/02/24 06/03/24 15:45 19:57 07:21 POC Glucose 402 H* 249 H 434 H* 06/03/24 06/03/24 09:57 11:22 POC Glucose 162 H 187 H Discharge Plan Discharge Anticipated Discharge Date/Time: 06/03/24 11:38 Patient Disposition: Home, Self-Care Discharge Diagnosis: Acute exacerbation of asthma acute exacerbation of asthma Referrals: Philip Purcell MD [Primary Care Provider] - 1 Week Discharge Medications: New lorazepam 0.5 mg Tablet 0.5 mg PO BEDTIME PRN (Reason: Insomnia) Qty: 10 0RF doxycycline hyclate 100 mg capsule 100 mg PO BID Qty: 14 0RF prednisone 10 mg tablet See Rx Instructions .Route .COMPLEX Qty: 45 0RF Rx Instructions: 10 mg orally; 5 tabs p.o. daily x3 days; 4 tabs p.o. daily x3 days; 3 tabs daily x3 days; 2 tabs daily x3 days; 1 tab daily x3 days Continued dextroamphetamine-amphetamine 20 mg tablet 10 mg PO BID@0700,1400 (DME) blood-glucose meter [Accu-Chek Guide Glucose Meter] Misc See Rx Instructions .ROUTE .MEDSUPPLY Qty: 1 0RF Rx Instructions: As directed (DME) Accu-Chek Guide test strips Strip See Rx Instructions .ROUTE .MEDSUPPLY Qty: 100 0RF Rx Instructions: As directed (DME) lancets [Accu-Chek Multiclix Lancet] [facility] [place] Rx Instructions .ROUTE .MEDSUPPLY Qty: 100 0RF Rx Instructions: As directed levalbuterol tartrate [Xopenex HFA] 45 mcg/actuation HFA aerosol inhaler 2 puff inhalation Q4H PRN (Reason: Wheezing) Mounjaro 5 mg/0.5 mL pen injector 5 mg subcut TH lisinopril 20 mg tablet 20 mg PO DAILY multivitamin Tablet 1 tab PO DAILY metformin 500 mg Tablet 500 mg PO BID calcium carbonate 500 mg calcium (1,250 mg) Tablet 500 mg PO DAILY potassium citrate 99 mg Capsule 99 mg PO DAILY clonidine HCl 0.1 mg tablet 0.1 mg PO BEDTIME dextroamphetamine-amphetamine 20 mg capsule,extended release 24hr 1 cap PO DAILY@0700 [place] 210 mg/1.91 mL (110 mg/mL) pen injector 210 mg subcut Q4W Rx Instructions: on the of each month ipratropium-albuterol 0.5 mg-3 mg(2.5 mg base)/3 mL solution for nebulization 3 ml inhalation Q4H PRN (Reason: shortness of breath or wheezing) diphenhydramine HCl [Benadryl] 25 mg Capsule 25 mg PO BEDTIME PRN (Reason: Sleep) Discontinued prednisone 50 mg tablet 50 mg PO DAILY Discharge Orders: Discharge Order (Routine); Ordered 06/03/24 Ordered By: Abdulaziz Fajardo Diet: Advance to usual diet Activity on Discharge: As tolerated Stand Alone Forms: Patient Portal Discharge page Print Language: Tamazight Care Plan Goals: Resume all pre-hospital medications. Prednisone taper has been added to your regimen along with doxycycline. Ativan 0.5 mg 10. Given for bedtime as needed Health Concerns: Continued DuoNebs every 4 hours while awake Plan of Treatment: Follow up with PCP next available Assessment: See discharge summary
== END 2024-06-03 13:06 | disposition home or self-care (01) | DRG 140 ==
LOC: HO.ED 11:35 → HO.EDOVER 13:06 → HO.S3 16:18
PROVIDERS: Family Medicine; Internal Medicine; Physician Assistant Medical; Admitting Provider Student in an Organized Health Care Education/Training Program; Emergency Provider Emergency Medicine; PCP Internal Medicine; Visit Provider Hospitalist
DX: J44.1 Chronic obstructive pulmonary disease with (acute) exacerbation (principal); J96.01 Acute respiratory failure with hypoxia; J45.901 Unspecified asthma with (acute) exacerbation; G47.33 Obstructive sleep apnea (adult) (pediatric); F90.9 Attention-deficit hyperactivity disorder, unspecified type; I10 Essential (primary) hypertension; E87.6 Hypokalemia; Z20.822 Contact with and (suspected) exposure to COVID-19; E11.65 Type 2 diabetes mellitus with hyperglycemia; Z79.84 Long term (current) use of oral hypoglycemic drugs; Z87.891 Personal history of nicotine dependence; Z79.899 Other long term (current) drug therapy
CPT/HCPCS: 0241U; 36415; 71046; 80048; 80053; 81001; 82607; 82746; 82803; 82947; 83036; 83735; 84484; 85025; 85027; 85610; 93005; 94640; 99285; J1650; J2060; J2919; J3475; J3480

== ENCOUNTER → 2024-05-30 12:58 | Outpatient (BNV) | payer BC, MEDICARE, SELFPAY | PROVIDERS: Admitting Provider Student in an Organized Health Care Education/Training Program; Emergency Provider Emergency Medicine; PCP Internal Medicine; Visit Provider Family Medicine | DX: J96.01 Acute respiratory failure with hypoxia (principal); J44.1 Chronic obstructive pulmonary disease with (acute) exacerbation | CPT/HCPCS: 99223; 99232; 99239 ==

== ENCOUNTER 2024-08-31 23:13 | Emergency (ER) | payer BC, MEDICARE, SELFPAY ==
--- NOTE | ~2024-08-31 | XR_ITS ---
EXAMINATION: XR FOOT, RIGHT CLINICAL INFORMATION: pain s/p injury COMPARISON: None available. TECHNIQUE: AP, lateral, and oblique views of the right foot. FINDINGS: The bones and soft tissues are normal. No fracture. Alignment is anatomic. Joint spaces are maintained. XR/XR foot RT min 3V IMPRESSION: Normal right foot. Electronically signed by: Michael Kaba MD 09/01/2024 12:15 AM KB
[2024-08-31 23:23] VITALS: BP 146/87; PULSE 100; RESP 18; TEMP 36.8; O2SAT 99; BMI 27.3
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
[2024-09-01 00:57] VITALS: BP 137/87; PULSE 90; RESP 18; TEMP 37; O2SAT 98
[2024-09-01 01:29] VITALS: BP 0/0; PULSE 0; RESP 0; TEMP -17.7; TEMP 0
== END 2024-09-01 01:30 | disposition home or self-care (01) ==
PROVIDERS: Emergency Provider Emergency Medicine; PCP Internal Medicine
DX: S90.31XA Contusion of right foot, initial encounter (principal); X58.XXXA Exposure to other specified factors, initial encounter; Y93.89 Activity, other specified; Y92.89 Other specified places as the place of occurrence of the external cause; Y99.8 Other external cause status
CPT/HCPCS: 73630; 99283

== ENCOUNTER 2024-09-28 13:11 | Emergency (ER) | payer BC, MEDICARE, SELFPAY ==
--- NOTE | ~2024-09-28 | XR_ITS ---
CLINICAL HISTORY: sob, right lung pain, cough 2 view chest x-ray Comparison: CR/SR - XR CHEST 2V - 05/30/24 11:38 EDT Findings: There are linear opacities within the inferior aspect of the right upper lobe. Left lung is clear. No consolidation or pleural effusion. Normal size heart. No acute fracture. IMPRESSION: There are multiple linear opacities within the right upper lobe most likely secondary to atelectasis. This document has been electronically signed by: Manuela Her MD on 09/28/2024 14:24:15
[2024-09-28 13:17] VITALS: BP 140/83; PULSE 98; RESP 19; TEMP 36.6; O2SAT 98; BMI 26.4
--- NOTE | 2024-09-28 13:17 | ED.SOB ---
HPI - SOB/Dyspnea General Chief Complaint: Upper Respiratory Symptoms Stated Complaint: breathing issues Time Seen by Provider: 09/28/24 16:11 Source: patient and RN notes reviewed Mode of arrival: ambulatory Limitations: no limitations History of Present Illness ED Provider: Sandrine Kaufman PA-C HPI Narrative: This is a 53-year-old female, with a PMH significant for?HTN, HLD, COPD not on home O2, [id number]-iyigfkrlw type 2 diabetes, TEO not on CPAP, fibromyalgia, hx of MRSA infection, alcohol use disorder, 20+ pack year smoking hx now vaping THC, anxiety, and depression who presents emergency department with complaints of dry cough, wheezing, and shortness for breath for the last 2 days. Patient states that her neighbors have been burning wood, this often times is a trigger for her asthma. She has been using at home nebulizers every couple of hours with some relief. She denies any recent fevers, chills, chest pain, palpitations, abdominal pain, nausea, vomiting or diarrhea. She reports some pleuritic right-sided chest pain. No other complaints or concerns at this time. MD elicited complaint: shortness of breath, cough and asthma attack Pertinent past history: COPD and asthma Onset (ago): day(s) Timing: constant Exacerbating factors: nothing Relieving factors: bronchodilators Known history of: asthma Treatment prior to arrival: none Related Data Home Medications ?Medication ?Instructions ?Recorded ?Confirmed dextroamphetamine-amphetamine 20 10 mg PO BID@0700,1400 07/26/20 05/30/24 mg tablet levalbuterol tartrate 45 2 puff inhalation Q4H PRN Wheezing 04/20/22 05/30/24 mcg/actuation aerosol inhaler (Xopenex HFA) clonidine HCl 0.1 mg tablet 0.1 mg PO BEDTIME 03/20/23 05/30/24 dextroamphetamine-amphetamine ER 1 cap PO DAILY@0700 03/20/23 05/30/24 20 mg 24hr capsule,extend release diphenhydramine HCl 25 mg capsule 25 mg PO BEDTIME PRN Sleep 03/05/24 05/30/24 (Benadryl) ipratropium 0.5 mg-albuterol 3 mg 3 ml inhalation Q4H PRN shortness 03/05/24 05/30/24 (2.5 mg base)/3 mL nebulization of breath or wheezing soln tezepelumab-ekko 210 mg/1.91 mL 210 mg subcut Q4W 03/05/24 05/30/24 (110 mg/mL) subcutaneous pen injector (Carlos Alberto) calcium carbonate 500 mg PO DAILY 05/30/24 05/30/24 lisinopril 20 mg tablet 20 mg PO DAILY 05/30/24 05/30/24 metformin 500 mg tablet 500 mg PO BID 05/30/24 05/30/24 multivitamin 1 tab PO DAILY 05/30/24 05/30/24 potassium citrate 99 mg capsule 99 mg PO DAILY 05/30/24 05/30/24 tirzepatide 5 mg/0.5 mL 5 mg subcut TH 05/30/24 05/30/24 subcutaneous pen injector (Fernando) Previous Rx's ?Medication ?Instructions ?Recorded blood sugar diagnostic (Accu-Chek #100 ea 10/11/20 Guide test strips) blood-glucose meter (Accu-Chek #1 ea 10/11/20 Guide Glucose Meter) lancets (Accu-Chek Multiclix #100 ea 10/11/20 Lancet) doxycycline hyclate 100 mg capsule 100 mg PO BID #14 caps 06/03/24 lorazepam 0.5 mg tablet 0.5 mg PO BEDTIME PRN Insomnia #10 06/03/24 tabs prednisone 10 mg tablet See Rx Instructions .Route 06/03/24 .COMPLEX #45 tabs prednisone 20 mg tablet 40 mg (2 x 20 mg) PO DAILY 5 days 09/28/24 #10 tabs Allergies Allergy/AdvReac Type Severity Reaction Status Date / Time hydromorphone [From DILAUDID] Allergy Severe SEIZURES Verified 09/28/24 13:19 oxycodone [OXYCODONE] Allergy Severe SEIZURES Verified 09/28/24 13:19 vancomycin Allergy Severe Rash Verified 09/28/24 13:19 gabapentin [GABAPENTIN] Allergy Intermediate MUSCLE ACHE Verified 09/28/24 13:19 albuterol Allergy Mild Trouble Verified 09/28/24 13:19 breathing;MDI use only bupropion [From WELLBUTRIN] Allergy Unknown SEIZURES Verified 09/28/24 13:19 phenytoin [Dilantin] Allergy Unknown Unknown Verified 09/28/24 13:19 azithromycin Allergy Hives Verified 09/28/24 13:19 Review of Systems Review of Systems: Yes all other systems are reviewed and are negative Constitutional: Constitutional: Reports as per [facility] Past Medical History Medical History DMII (diabetes mellitus, type 2) Bilateral knee pain Bilateral foot pain Colon cancer screening Annual physical exam Acute pneumonia Obese Anxiety COPD (chronic obstructive pulmonary disease) Sleep apnea History of suicide attempt Asthma-COPD overlap syndrome HTN (hypertension) ADHD Epilepsy Fibromyalgia Tracheomalacia Cocaine abuse Alcohol abuse Asthma Surgical History Previous section History of cholecystectomy Family History Family History Father No problems noted. Mother Cervical cancer Mental health disorder Social History Social History Household Members: Spouse and Family Housing: House Are you a primary child care aide to a significant other at home: Yes Do you presently have visiting nurse or other home services: No Alcohol intake: former Comment: pt sleeping Patient Tobacco Use Status: Former Tobacco user Tobacco use type: Cigarette Cigarettes Per Day: 25 Years Smoked: 20 e-Cigarette/Vaping Use: Currently Using Second Hand Smoke Exposure: No Substance Use Type: Marijuana Advance Directives: Yes Advance Directives on File: Yes Advance Directives Date on File: 11/05/20 Do you have a plan to hurt others: No Plan service: No Current occupational status: disabled Cognitive needs: Yes (Pt would like a cane ) Hearing needs: Yes (?hearing loss mostly from right ear.) Vision needs: Yes (Pt was seen 6 months and exam was good just need readig glasses.) Physical Exam Vital Signs: Vital Signs: Last Vital Signs Temp 98.3 F 09/28/24 19:47 Pulse 101 H 09/28/24 19:47 Resp 16 09/28/24 19:47 BP 140/89 H 09/28/24 19:47 Pulse Ox 96 09/28/24 19:47 O2 Del Method Room Air 09/28/24 19:47 BMI result Body Mass Index 26.4 Const: General: cooperative, comfortable and no acute distress Orientation/consciousness: patient oriented x3 Limitations: no limitations HEENT: Head: Yes normal to inspection, Yes normocephalic and Yes atraumatic Ears: hearing grossly normal bilaterally General nose exam: Normal external nose present Face and sinus: Yes normal facial exam Mouth: Normal oral and palatal mucosa present, oropharynx normal and moist mucous membranes Throat: Yes posterior oropharynx normal Eyes: General: appearance normal, both eyes and all related structures Eyelids: Yes eyelids normal Conjunctivae: conjunctivae normal Sclerae: sclerae normal Pupils: Equal, round and reactive pupils present EOM: EOMs intact bilaterally Neck: Neck: Yes normal visual inspection, Yes full ROM and Yes no lymphadenopathy Lymphatic: no lymphadenopathy noted Chest: Chest palpation & inspection: normal inspection of the chest Resp: Other: Inspiratory and expiratory wheezes noted throughout all lung romero Effort & Inspection: normal respiratory effort and able to speak in complete sentences Cardio: Rate: regular rate Rhythm: regular rhythm Heart sounds: S1 normal heart sound present and S2 normal heart sound present GI: Inspection: Yes normal to inspection Skin: General skin exam: no rashes or lesions noted Trauma: no lacerations or abrasions Wounds: no wounds Neuro: General: patient oriented x3 and moves all extremities Cranial nerves: Yes Equal, round and reactive pupils present Extrem: General: Yes normal to inspection Right upper extremity: normal to inspection Left upper extremity: normal to inspection Right lower extremity: normal to inspection Left lower extremity: normal to inspection Course Course Course Narrative: This is a Rapid Medical Examination (RME) performed by Mic Dean PA-C in triage. Full HPI, ROS, assessment and treatment plan per primary provider in the Main ED. 53 yo female hx of asthma, COPD not on home O2, etoh abuse, non-insulin dependent T2DM, ADHD, hypokalemia here for eval of cough, sob, wheezing, and right lung pain x 2 days. had breathing tx SPECTROSCOPIST in ED w/o improvement. + scattered inspiratory wheezes Plan: labs, ekg, cxr, viral testing, ed bronch protocol Reevaluation(s) Reevaluation #1: Pt feeling much better after IV meds and updraft. Ambulatory O2 trial, O2 94%-96%. Will tx as asthma exacerbation and d/c on prednisone. She has updrafts and inhaler at home. Advised to f/u with her research & analytics manager. Workup reassuring. Given return precautions. Stable for d.c. Medications Administered Discontinued Medications Generic Name Dose Route Start Last Admin Trade Name Leonid PRN Reason Stop Dose Admin Albuterol Sulfate 2.5 mg/ 5 mg 09/28/24 18:13 09/28/24 18:15 Albuterol Sulfate 2.5 mg INHALE 09/28/24 18:14 5 mg ONCE ONE Administration Magnesium Sulfate 2 gm in 50 mls @ 150 mls/hr 09/28/24 17:34 09/28/24 18:17 Magnesium Sulfate/H2o IV 09/28/24 17:53 Infused ONCE ONE Infusion Lorazepam 1 mg 09/28/24 17:54 09/28/24 18:15 Lorazepam 2 Mg/Ml Vial IVPUSH 09/28/24 17:55 1 mg ONCE ONE Administration Methylprednisolone Sodium Succinate 60 mg 09/28/24 17:34 09/28/24 17:48 Methylprednisolone Sod Succ 125 Mg/2 Ml Vial IVPUSH 09/28/24 17:35 60 mg ONCE ONE Administration Medical Decision Making Medical Decision Making [facility] Narrative: 53-year-old female with a PMH significant for?HTN, HLD, COPD not on home O2, [id number]-feznvsitn type 2 diabetes, TEO not on CPAP, fibromyalgia, hx of MRSA infection, alcohol use disorder, 20+ pack year smoking hx now vaping THC, anxiety, and depression who presents emergency department complaints of wheezing, cough x2 days. Recent exposure to smoke which caused her symptoms to worsen. On arrival, vital signs within normal limits. She is speaking in full sentences under no acute distress. On my assessment, lungs with inspiratory and expiratory wheezes noted throughout all lung romero. Will administer Solu-Medrol, magnesium, and ED bronch protocol. Patient states that her anxiety is making her symptoms worse therefore patient was medicated with 1 mg of Ativan IV. CXR revealing atelectasis. She has no fevers, no consolidation seen on xray. Differential Diagnosis Differential Diagnoses: The differential diagnosis associated with the presentation includes Asthma exacerbation, COPD exacerbation, acute bronchitis, pneumonia Lab Data [facility] Lab Attestation statement: I reviewed the patient's lab results. No leukocytosis, stable H&H, chemistry with no electrolyte derangement, troponin x2 negative. D-dimer negative. Negative COVID, flu, RSV 09/28/24 13:25 09/28/24 13:25 Labs: Lab Results 09/28/24 09/28/24 09/28/24 Range/Units 13:25 13:29 17:47 WBC 8.3 (4.8-10.8) X10*3/uL RBC 4.36 (4.20-5.50) X10*6/uL Hgb 13.1 (12.0-16.0) g/dl Hct 38.6 (37.0-47.0) % MCV 88.5 (80.0-98.0) fL MCH 30.0 (27.0-33.0) pg MCHC 33.9 (31.0-35.0) g/dl RDW 12.5 (11.0-16.0) % Plt Count 349 (160-400) X10*3/uL MPV 9.8 (9.4-12.3) fL Immature Gran % (Auto) 0.2 (0.0-0.4) % Neut % (Auto) 60.9 (45-73) % Lymph % (Auto) 28.9 (20-40) % [place] % (Auto) 8.6 (2-11) % Eos % (Auto) 0.8 (0-4) % Baso % (Auto) 0.6 (0-2) % Lymph # (Auto) 2.4 (1.2-4.9) X10*3/uL [place] # (Auto) 0.7 (0.1-1.2) X10*3/uL Eos # (Auto) 0.1 (0.0-0.4) X10*3/uL Baso # (Auto) 0.1 (0.0-0.2) X10*3/uL Abs Immat Gran (auto) 0.02 (0.00-0.03) X10*3/uL Absolute Neuts (auto) 5.0 (2.0-8.3) x10*3/uL Absolute Nucleated RBC 0.000 (0.0-0.012) X10*3/uL Nucleated RBC % (auto) 0.0 (0.0-0.2) /100WBC D-Dimer High Sensitivty < 150 NG/ML Sodium 143 (135-145) mmol/L Potassium 3.7 (3.3-5.1) mmol/L Chloride 111 H (96-108) mmol/L Carbon Dioxide 25 (22-29) mmol/L Anion Gap 11 L (12-20) BUN 12 (9-16) mg/dL Creatinine 0.71 (0.5-1.4) mg/dL Estim Creat Clear Calc 78.2 Estimated GFR > 60 Random Glucose 127 H (60-115) mg/dL Calcium 8.9 (8.4-10.2) mg/dL Magnesium 2.1 (1.6-2.6) mg/dL Total Bilirubin 0.3 (0.0-1.0) mg/dL AST 19 (5-31) U/L ALT 15 (0-31) U/L Alkaline Phosphatase 84 (39-117) U/L Troponin I High Sens 3.1 3.0 (<3.5-17.0) ng/L Total Protein 7.8 (6.5-8.0) g/dL Albumin 3.9 (3.5-5.0) g/dL Influenza Type A (PCR) NEGATIVE (Negative) Influenza Type B (PCR) NEGATIVE (Negative) RSV RNA Qual (PCR) NEGATIVE (Negative) SARS-CoV-2 RNA (RT-PCR) NEGATIVE (Negative) Independent Interpretation I performed an independent interpretation of an: EKG Interpretation: NSR at at a ventricular rate of 97bpm, no ST elevation or depression. Radiology Impression Discussion of test interpretation with radiology: I have reviewed the radiologist's reading. Radiologist Impression: 2 view chest x-ray Comparison: CR/SR - XR CHEST 2V - 05/30/24 11:38 EDT Findings: There are linear opacities within the inferior aspect of the right upper lobe. Left lung is clear. No consolidation or pleural effusion. Normal size heart. No acute fracture. IMPRESSION: There are multiple linear opacities within the right upper lobe most likely secondary to atelectasis. This document has been electronically signed by: Manuela Her MD on 09/28/2024 14:24:15 Dictated By: Manuela Her MD Discharge Plan Discharge Clinical Impression: Asthma exacerbation Patient Disposition: Home, Self-Care Instructions: Asthma (ED), How Your Lungs Work (ED) Additional Instructions: You were seen in the emergency department. You tested negative for COVID, flu, RSV. Your chest x-ray does not show a pneumonia. We had given you IV steroids. We also gave you an updraft. Please continue prednisone at home. Please follow-up with the research & analytics manager on Monday. If any new or worsening symptoms occur including but not limited to chest pain, worsening shortness of breath, please seek emergent care. Prescriptions: New prednisone 20 mg tablet 40 mg PO DAILY 5 Days Qty: 10 0RF No Action dextroamphetamine-amphetamine 20 mg tablet 10 mg PO BID@0700,1400 (DME) blood-glucose meter [Accu-Chek Guide Glucose Meter] Misc See Rx Instructions .ROUTE .MEDSUPPLY Qty: 1 0RF Rx Instructions: As directed ([facility] [place]) Accu-Chek Guide test strips Strip See Rx Instructions .ROUTE .MEDSUPPLY Qty: 100 0RF Rx Instructions: As directed ([facility] [place]) lancets [Accu-Chek Multiclix Lancet] [facility] See Rx Instructions .ROUTE .MEDSUPPLY Qty: 100 0RF Rx Instructions: As directed levalbuterol tartrate [Xopenex HFA] 45 mcg/actuation HFA aerosol inhaler 2 puff inhalation Q4H PRN (Reason: Wheezing) Mounjaro 5 mg/0.5 mL pen injector 5 mg subcut TH lisinopril 20 mg tablet 20 mg PO DAILY multivitamin Tablet 1 tab PO DAILY metformin 500 mg Tablet 500 mg PO BID calcium carbonate 500 mg calcium (1,250 mg) Tablet 500 mg PO DAILY potassium citrate 99 mg Capsule 99 mg PO DAILY lorazepam 0.5 mg Tablet 0.5 mg PO BEDTIME PRN (Reason: Insomnia) Qty: 10 0RF doxycycline hyclate 100 mg capsule 100 mg PO BID Qty: 14 0RF prednisone 10 mg tablet See Rx Instructions .Route .COMPLEX Qty: 45 0RF Rx Instructions: 10 mg orally; 5 tabs p.o. daily x3 days; 4 tabs p.o. daily x3 days; 3 tabs daily x3 days; 2 tabs daily x3 days; 1 tab daily x3 days clonidine HCl 0.1 mg tablet 0.1 mg PO BEDTIME dextroamphetamine-amphetamine 20 mg capsule,extended release 24hr 1 cap PO DAILY@0700 [place]sp[place] 210 mg/1.91 mL (110 mg/mL) pen injector 210 mg subcut Q4W Rx Instructions: on the of each month ipratropium-albuterol 0.5 mg-3 mg(2.5 mg base)/3 mL solution for nebulization 3 ml inhalation Q4H PRN (Reason: shortness of breath or wheezing) diphenhydramine HCl [Benadryl] 25 mg Capsule 25 mg PO BEDTIME PRN (Reason: Sleep) Interventions: ED Discharge Assessment Last Done: 09/28/24 19:47 Discharge Date/Time: 09/28/24 19:48 Print Language: Korean
--- NOTE | 2024-09-28 13:22 | ECG_ITS ---
Test Reason : SOB Blood Pressure : */* mmHG Vent. Rate : 97 BPM Atrial Rate : 97 BPM P-R Int : 146 ms QRS Dur : 98 ms QT Int : 388 ms P-R-T Axes : 34 39 57 degrees QTcB Int : 492 ms Normal sinus rhythm Prolonged QT Abnormal ECG When compared with ECG of 30-May-2024 10:47, No significant change was found Referred By: Yenifer Dean Electronically Signed By: ELVIS PEGUERO
[2024-09-28 13:35] LABS: MANUAL DIFF FLAG NO
[2024-09-28 13:51] LABS: Basophils Absolute Auto 0.1 X10*3/uL (0.0-0.2); Basophils Percent Auto 0.6 % (0-2); Eosinophils Absolute Auto 0.1 X10*3/uL (0.0-0.4); Eosinophils Percent Auto 0.8 % (0-4); Hematocrit 38.6 % (37.0-47.0); Hemoglobin 13.1 g/dl (12.0-16.0); Imm Gran Abs Auto 0.02 X10*3/uL (0.00-0.03); Imm Gran Pct Auto 0.2 % (0.0-0.4); Lymphocytes Absolute Auto 2.4 X10*3/uL (1.2-4.9); Lymphocytes Percent Auto 28.9 % (20-40); Mean Corpuscular HGB Conc 33.9 g/dl (31.0-35.0); Mean Corpuscular Volume 88.5 fL (80.0-98.0); Mean Platelet Volume 9.8 fL (9.4-12.3); Monocytes Absolute Auto 0.7 X10*3/uL (0.1-1.2); Monocytes Percent Auto 8.6 % (2-11); Neutrophils Percent Auto 60.9 % (45-73); Platelet Count 349 X10*3/uL (160-400); Red Blood Count 4.36 X10*6/uL (4.20-5.50); Red Cell Distribution Width 12.5 % (11.0-16.0); White Blood Count 8.3 X10*3/uL (4.8-10.8)
[2024-09-28 14:03] LABS: Troponin-I High Sensitivity 3.1 ng/L (<3.5-17.0)
[2024-09-28 14:05] LABS: Alanine Aminotransferase 15 U/L (0-31); Albumin Level 3.9 g/dL (3.5-5.0); Alkaline Phosphatase 84 U/L (39-117); Anion Gap 11 (12-20); Aspartate Amino Transferase 19 U/L (5-31); Bilirubin Total 0.3 mg/dL (0.0-1.0); Blood Urea Nitrogen 12 mg/dL (9-16); Calcium 8.9 mg/dL (8.4-10.2); Carbon Dioxide 25 mmol/L (22-29); Chloride 111 mmol/L (96-108); Creatinine Clr Calc Pharmacy 78.2; Estimated Glomerular Filt Rate > 60; Glucose Random 127 mg/dL (60-115); Magnesium 2.1 mg/dL (1.6-2.6); Potassium 3.7 mmol/L (3.3-5.1); Sodium 143 mmol/L (135-145); Total Protein 7.8 g/dL (6.5-8.0)
[2024-09-28 14:14] LABS: Influenza A PCR NEGATIVE (Negative); Influenza B PCR NEGATIVE (Negative); Resp Syncy Virus RNA Qual PCR NEGATIVE (Negative); SARS COV2 PCR INHOUSE NEGATIVE (Negative)
[2024-09-28 16:34] VITALS: BP 137/90; PULSE 96; RESP 16; TEMP 36.8; O2SAT 98
[2024-09-28] MEDS: methylPREDNISolone Sod Succ 125 MG/2 ML VIAL 60 MG IVPUSH (17:48)
[2024-09-28] MEDS: Magnesium Sulfate/H2O 2 GM/50 ML PIGGYBACK IV (17:48)
[2024-09-28] MEDS: Albuterol Sulfate 2.5 MG, Albuterol Sulfate (0.083%) 2.5 MG 5 MG INHALE (18:15)
[2024-09-28] MEDS: LORazepam 2 MG/ML VIAL 1 MG IVPUSH (18:15)
[2024-09-28 18:22] LABS: D Dimer High Sensitivity < 150 NG/ML
[2024-09-28 19:47] VITALS: BP 140/89; PULSE 101; RESP 16; TEMP 36.8; O2SAT 96
--- NOTE | 2024-09-28 20:28 | PC.NURSE ---
Patient's phone and dc paperwork found in sheets, veterans contact representative called, attempted to leave message, voicemailbox is full. Phone and DC paperwork brought to security for lost and found.
== END 2024-09-28 19:48 | disposition home or self-care (01) ==
PROVIDERS: Physician Assistant Medical; Emergency Provider Emergency Medicine; PCP Internal Medicine
DX: J45.901 Unspecified asthma with (acute) exacerbation (principal); R05.9 Cough, unspecified; R06.02 Shortness of breath; Z03.818 Encounter for observation for suspected exposure to other biological agents ruled out; E11.9 Type 2 diabetes mellitus without complications
CPT/HCPCS: 0241U; 36415; 71046; 80053; 83735; 84484; 85025; 85379; 93005; 96365; 96375; 99284; J2060; J2919; J3475

== ENCOUNTER → 2024-09-28 13:18 | Outpatient (BNV) | payer BC, MEDICARE, SELFPAY | PROVIDERS: PCP Internal Medicine; Visit Provider Radiology Diagnostic Radiology | DX: R06.02 Shortness of breath (principal) | CPT/HCPCS: 71046 ==

== ENCOUNTER → 2024-09-28 13:22 | Outpatient (BNV) | payer BC, MEDICARE, SELFPAY | PROVIDERS: Emergency Provider Emergency Medicine; PCP Internal Medicine; Visit Provider Internal Medicine | DX: R94.31 Abnormal electrocardiogram [ECG] [EKG] (principal) | CPT/HCPCS: 93010 ==

== ENCOUNTER 2024-10-16 09:26 | Emergency (ER) | payer BC, MEDICARE, SELFPAY ==
--- NOTE | ~2024-10-16 | XR_ITS ---
EXAMINATION: XR CHEST CLINICAL INFORMATION: sob, wheezing COMPARISON: Numerous prior exams, most recently 09/28/2024, 05/30/2024. TECHNIQUE: 2 views of the chest were obtained. FINDINGS: The cardiac, hilar, and mediastinal contours are normal. Lungs demonstrate similar discoid linear atelectasis in the right middle lobe distribution. Minimal linear atelectasis left base. Lungs otherwise clear. There is no pneumothorax or pleural effusion. There is no focal osseous or soft tissue abnormality. XR/XR chest 2V IMPRESSION: Discoid atelectasis right middle lobe, unchanged. No focal pneumonia or effusion. No change from 09/28/2024. Electronically signed by: Celestino Uribe MD 10/16/2024 10:47 AM KB
[2024-10-16 09:47] VITALS: BP 166/88; PULSE 79; RESP 18; TEMP 36.7; O2SAT 96; BMI 27.0
--- NOTE | 2024-10-16 09:50 | ED.SOB ---
HPI - SOB/Dyspnea General Chief Complaint: Dyspnea Stated Complaint: Asthma Time Seen by Provider: 10/16/24 10:53 History of Present Illness ED Provider: Rajendra Kohler DO HPI Narrative: 53-year-old female with past medical history significant for hypertension, hyperlipidemia, COPD on home O2, non insulin-dependent type 2 diabetes, TEO not on CPAP, fibromyalgia, alcohol use disorder, 20+ pack year smoking history now currently vaping, cannabinoid use, anxiety, depression, history of MRSA infection who presents to the ED for an evaluation of shortness of breath with associated cough productive of sputum. Patient states she took her nebulizer treatment at home with no significant improvement. Prior record was reviewed and the patient was seen here on 09/28/2024, nearly 3 weeks ago and prescribed a prednisone course for a diagnosis of asthma exacerbation. Patient states she has had multiple sick contacts at home with vomiting and diarrhea and her symptoms developed 3 days ago with no significant improvement after nebulizer treatments every 2 hours. She reports a fever of 101 degrees F 2 days ago but no fevers or chills since that time. She reports her cough is productive of more sputum and describes it as thick and green. She denies chest discomfort, nausea, vomiting, diarrhea, headache or any additional symptoms today. Related Data Home Medications ?Medication ?Instructions ?Recorded ?Confirmed dextroamphetamine-amphetamine 20 10 mg PO BID@0700,1400 07/26/20 05/30/24 mg tablet levalbuterol tartrate 45 2 puff inhalation Q4H PRN Wheezing 04/20/22 05/30/24 mcg/actuation aerosol inhaler (Xopenex HFA) clonidine HCl 0.1 mg tablet 0.1 mg PO BEDTIME 03/20/23 05/30/24 dextroamphetamine-amphetamine ER 1 cap PO DAILY@0700 03/20/23 05/30/24 20 mg 24hr capsule,extend release diphenhydramine HCl 25 mg capsule 25 mg PO BEDTIME PRN Sleep 03/05/24 05/30/24 (Benadryl) ipratropium 0.5 mg-albuterol 3 mg 3 ml inhalation Q4H PRN shortness 03/05/24 05/30/24 (2.5 mg base)/3 mL nebulization of breath or wheezing soln tezepelumab-ekko 210 mg/1.91 mL 210 mg subcut Q4W 03/05/24 05/30/24 (110 mg/mL) subcutaneous pen injector (Yumikoire) calcium carbonate 500 mg PO DAILY 05/30/24 05/30/24 lisinopril 20 mg tablet 20 mg PO DAILY 05/30/24 05/30/24 metformin 500 mg tablet 500 mg PO BID 05/30/24 05/30/24 multivitamin 1 tab PO DAILY 05/30/24 05/30/24 potassium citrate 99 mg capsule 99 mg PO DAILY 05/30/24 05/30/24 tirzepatide 5 mg/0.5 mL 5 mg subcut TH 05/30/24 05/30/24 subcutaneous pen injector (Fernando) Previous Rx's ?Medication ?Instructions ?Recorded blood sugar diagnostic (Accu-Chek #100 ea 10/11/20 Guide test strips) blood-glucose meter (Accu-Chek #1 ea 10/11/20 Guide Glucose Meter) lancets (Accu-Chek Multiclix #100 ea 10/11/20 Lancet) doxycycline hyclate 100 mg capsule 100 mg PO BID #14 caps 06/03/24 lorazepam 0.5 mg tablet 0.5 mg PO BEDTIME PRN Insomnia #10 06/03/24 tabs prednisone 10 mg tablet See Rx Instructions .Route 06/03/24 .COMPLEX #45 tabs prednisone 20 mg tablet 40 mg (2 x 20 mg) PO DAILY 5 days 09/28/24 #10 tabs doxycycline monohydrate 100 mg 100 mg PO BID 5 days #10 caps 10/16/24 capsule prednisone 50 mg tablet 50 mg PO DAILY 5 days #5 tabs 10/16/24 Allergies Allergy/AdvReac Type Severity Reaction Status Date / Time hydromorphone [From DILAUDID] Allergy Severe SEIZURES Verified 10/16/24 09:50 oxycodone [OXYCODONE] Allergy Severe SEIZURES Verified 10/16/24 09:50 vancomycin Allergy Severe Rash Verified 10/16/24 09:50 gabapentin [GABAPENTIN] Allergy Intermediate MUSCLE ACHE Verified 10/16/24 09:50 albuterol Allergy Mild Trouble Verified 10/16/24 09:50 breathing;MDI use only bupropion [From WELLBUTRIN] Allergy Unknown SEIZURES Verified 10/16/24 09:50 phenytoin [Dilantin] Allergy Unknown Unknown Verified 10/16/24 09:50 azithromycin Allergy Hives Verified 10/16/24 09:50 Review of Systems Review of Systems: Yes all other systems are reviewed and are negative [facility] Past Medical History Medical History DMII (diabetes mellitus, type 2) Bilateral knee pain Bilateral foot pain Colon cancer screening Annual physical exam Acute pneumonia Obese Anxiety COPD (chronic obstructive pulmonary disease) Sleep apnea History of suicide attempt Asthma-COPD overlap syndrome HTN (hypertension) ADHD Epilepsy Fibromyalgia Tracheomalacia Cocaine abuse Alcohol abuse Asthma Surgical History Previous section History of cholecystectomy Family History Family History Father No problems noted. Mother Cervical cancer Mental health disorder Social History Social History Household Members: Spouse and Family Housing: House Are you a primary patient care assistant to a significant other at home: Yes Do you presently have visiting nurse or other home services: No Alcohol intake: former Comment: pt sleeping Patient Tobacco Use Status: Former Tobacco user Tobacco use type: Cigarette Cigarettes Per Day: 25 Years Smoked: 20 Smoked in Last 30 Days: No e-Cigarette/Vaping Use: Currently Using Second Hand Smoke Exposure: No Use of substances other than those prescribed or required for medical reasons: Yes Substance Use Type: Marijuana Advance Directives: Yes Advance Directives on File: Yes Advance Directives Date on File: 11/05/20 service: No Current occupational status: disabled Cognitive needs: Yes (Pt would like a cane ) Hearing needs: Yes (?hearing loss mostly from right ear.) Vision needs: Yes (Pt was seen 6 months and exam was good just need readig glasses.) Physical Exam Vital Signs: Vital Signs: Last Vital Signs Temp 97.7 F 10/16/24 11:28 Pulse 90 10/16/24 11:28 Resp 18 10/16/24 11:28 BP 107/68 10/16/24 11:28 Pulse Ox 97 10/16/24 12:28 O2 Del Method Room Air 10/16/24 11:28 BMI result Body Mass Index 27.0 Constitutional: ?Alert, oriented, speaking in full sentences HEENT: ?Normocephalic, atraumatic. ?Tacky mucous membranes Eyes: ?PERRL, EOMI Neck: ?Supple, nontender Chest: ?No chest wall tenderness Respiratory: ?Moving air well but has diffuse expiratory wheezes with prolonged expiratory phase. No inspiratory crackles. No tachypnea. Mild increased work of breathing. Cardio: ?Regular rate and rhythm, no murmur, 2+ radial and DP pulses symmetrically GI: ?Soft, nondistended, nontender Back: ?Normal range of motion, nontender Skin: ?No rash, no lesions Neuro: ?Alert and oriented to person, place and time, moves all 4 extremities, no focal deficits Extremities: ?No swelling or tenderness, full range of motion Psych: ?Calm, alert and cooperative, appropriate behavior Course Course Course Narrative: This is a Rapid Medical Examination (RME) performed by Mic Dean PA-C in triage. Full HPI, ROS, assessment and treatment plan per primary provider in the Main ED. 53 yo female hx asthma here w/ sob x2-3 days. using neb at home w/ minimal relief. her family is ill w/ URI at home. Plan: cxr, viral swabs, basic labs, ed bronch protocol Medications Administered Discontinued Medications Generic Name Dose Route Start Last Admin Trade Name Freq PRN Reason Stop Dose Admin Albuterol Sulfate 5 mg/ 0 mg 10/16/24 10:10 10/16/24 10:16 Albuterol/Ipratropium 3 ml INHALE 10/16/24 10:11 1 each ONCE ONE Administration Doxycycline Monohydrate 100 mg 10/16/24 11:31 10/16/24 12:07 Doxycycline Monohydrate 100 Mg Capsule PO 10/16/24 11:32 100 mg ONCE ONE Administration Prednisone 50 mg 10/16/24 11:31 10/16/24 12:07 Prednisone 10 Mg Tablet PO 10/16/24 11:32 50 mg ONCE ONE Administration Medical Decision Making Medical Decision Making [facility] Narrative: This is an overall well-appearing patient presenting as an asthma exacerbation/COPD exacerbation. She has mild hypertension here which is expected given her history. She has mild tachypnea. She does feel significantly improved after bronchodilator therapy. She has no hypoxia. I do not suspect ACS, PE or other dangerous etiologies of respiratory distress and cough. Pneumonias on the differential but the patient's chest x-ray does not reveal any opacities. I suspect she would benefit from atypical coverage with doxycycline. Differential also includes COVID-19, influenza or RSV. The patient will be monitored for improvement after another round of nebulizer treatment and likely discharged to home. Patient has been evaluated with no decompensation. Ambulates with no hypoxia. We will cover with doxycycline and prednisone and provided strict return precautions for any worsening conditions. Admission/Observation Consideration of admission/observation: Escalation of care including admission/observation considered Lab Data MDM Lab Attestation statement: I reviewed the patient's lab results. Mild hypokalemia expected with albuterol use, otherwise mild nonspecific non neutrophilic leukocytosis at 11 in no remarkable findings including negative COVID, influenza and RSV. 10/16/24 10:58 10/16/24 10:58 Labs: Lab Results 10/16/24 Range/Units 10:58 WBC 11.8 H (4.8-10.8) X10*3/uL RBC 4.63 (4.20-5.50) X10*6/uL Hgb 13.8 (12.0-16.0) g/dl Hct 41.5 (37.0-47.0) % MCV 89.6 (80.0-98.0) fL MCH 29.8 (27.0-33.0) pg MCHC 33.3 (31.0-35.0) g/dl RDW 13.9 (11.0-16.0) % Plt Count 322 (160-400) X10*3/uL MPV 9.5 (9.4-12.3) fL Immature Gran % (Auto) 0.3 (0.0-0.4) % Neut % (Auto) 57.1 (45-73) % Lymph % (Auto) 36.2 (20-40) % [place] % (Auto) 5.3 (2-11) % Eos % (Auto) 0.7 (0-4) % Baso % (Auto) 0.4 (0-2) % Lymph # (Auto) 4.3 (1.2-4.9) X10*3/uL [place] # (Auto) 0.6 (0.1-1.2) X10*3/uL Eos # (Auto) 0.1 (0.0-0.4) X10*3/uL Baso # (Auto) 0.1 (0.0-0.2) X10*3/uL Abs Immat Gran (auto) 0.04 H (0.00-0.03) X10*3/uL Absolute Neuts (auto) 6.7 (2.0-8.3) x10*3/uL Absolute Nucleated RBC 0.000 (0.0-0.012) X10*3/uL Nucleated RBC % (auto) 0.0 (0.0-0.2) /100WBC Sodium 141 (135-145) mmol/L Potassium 3.1 L (3.3-5.1) mmol/L Chloride 111 H (96-108) mmol/L Carbon Dioxide 20 L (22-29) mmol/L Anion Gap 13 (12-20) BUN 8 L (9-16) mg/dL Creatinine 0.70 (0.5-1.4) mg/dL Estim Creat Clear Calc 80.2 Estimated GFR > 60 Random Glucose 141 H (60-115) mg/dL Calcium 9.1 (8.4-10.2) mg/dL Magnesium 2.1 (1.6-2.6) mg/dL Total Bilirubin 0.3 (0.0-1.0) mg/dL AST 29 (5-31) U/L ALT 23 (0-31) U/L Alkaline Phosphatase 83 (39-117) U/L Total Protein 7.7 (6.5-8.0) g/dL Albumin 4.0 (3.5-5.0) g/dL Influenza Type A (PCR) NEGATIVE (Negative) Influenza Type B (PCR) NEGATIVE (Negative) RSV RNA Qual (PCR) NEGATIVE (Negative) SARS-CoV-2 RNA (RT-PCR) NEGATIVE (Negative) Independent Interpretation I performed an independent interpretation of an: Plain X-Ray Interpretation: Chest x-ray per my independent interpretation shows no acute opacities, some linear atelectasis of the right middle lobe. Discharge Plan Discharge Clinical Impression: Asthma with exacerbation COPD (chronic obstructive pulmonary disease) Qualifiers: COPD type: chronic bronchitis Chronic bronchitis type: simple Qualified Code(s): J41.0 - Simple chronic bronchitis Patient Disposition: Home, Self-Care Instructions: Asthma (ED), Chronic Bronchitis (ED) Additional Instructions: We evaluated you in the Emergency Department (ED) and believe that you have an exacerbation (worsening) of your asthma. Asthma is caused by inflammation and tightening of muscles in the airway.? You were given breathing treatments and steroids, and your breathing improved. These medications will help with your current attack. A visit to the ED is a warning sign that your asthma may not be managed adequately. Asthma is a chronic condition that cannot be cured, but medications can help control your symptoms. Steps to take at home: Use your albuterol (inhaler or nebulizer) as directed for your symptoms (4 puffs every 4 hours for the next 24 hours, then as needed for wheezing or difficulty breathing). We recommend using a spacer to help deliver the medication to your lungs more effectively. Take the steroids (dexamethasone or prednisone) as directed to help reduce lung inflammation and decrease the risk of another attack in the next few days. We also prescribed a course of doxycycline to take to cover for atypical pneumonia. Follow up with your primary care doctor or peace officer (lung doctor) within one week to discuss your symptoms. They can talk with you about daily medications to help prevent asthma attacks. Ask them about writing an ?asthma action plan? to prepare for future asthma exacerbations. Please speak to your doctor or come back to the ED for new symptoms, such as difficulty breathing that doesn?t improve with your medications, chest pain, voice changes, fevers (over 100.4 F), confusion, or other new or worsening symptoms. . Thank you for choosing us for your care. Prescriptions: New doxycycline monohydrate 100 mg capsule 100 mg PO BID 5 Days Qty: 10 0RF prednisone 50 mg tablet 50 mg PO DAILY 5 Days Qty: 5 0RF No Action dextroamphetamine-amphetamine 20 mg tablet 10 mg PO BID@0700,1400 (DME) blood-glucose meter [Accu-Chek Guide Glucose Meter] Misc See Rx Instructions .ROUTE .MEDSUPPLY Qty: 1 0RF Rx Instructions: As directed (DME) Accu-Chek Guide test strips Strip See Rx Instructions .ROUTE .MEDSUPPLY Qty: 100 0RF Rx Instructions: As directed (DME) lancets [Accu-Chek Multiclix Lancet] Misc See Rx Instructions .ROUTE .MEDSUPPLY Qty: 100 0RF Rx Instructions: As directed levalbuterol tartrate [Xopenex HFA] 45 mcg/actuation HFA aerosol inhaler 2 puff inhalation Q4H PRN (Reason: Wheezing) Mounjaro 5 mg/0.5 mL pen injector 5 mg subcut TH lisinopril 20 mg tablet 20 mg PO DAILY multivitamin Tablet 1 tab PO DAILY metformin 500 mg Tablet 500 mg PO BID calcium carbonate 500 mg calcium (1,250 mg) Tablet 500 mg PO DAILY potassium citrate 99 mg Capsule 99 mg PO DAILY lorazepam 0.5 mg Tablet 0.5 mg PO BEDTIME PRN (Reason: Insomnia) Qty: 10 0RF doxycycline hyclate 100 mg capsule 100 mg PO BID Qty: 14 0RF prednisone 10 mg tablet See Rx Instructions .Route .COMPLEX Qty: 45 0RF Rx Instructions: 10 mg orally; 5 tabs p.o. daily x3 days; 4 tabs p.o. daily x3 days; 3 tabs daily x3 days; 2 tabs daily x3 days; 1 tab daily x3 days clonidine HCl 0.1 mg tablet 0.1 mg PO BEDTIME dextroamphetamine-amphetamine 20 mg capsule,extended release 24hr 1 cap PO DAILY@0700 Tezspire 210 mg/1.91 mL (110 mg/mL) pen injector 210 mg subcut Q4W Rx Instructions: on the of each month ipratropium-albuterol 0.5 mg-3 mg(2.5 mg base)/3 mL solution for nebulization 3 ml inhalation Q4H PRN (Reason: shortness of breath or wheezing) diphenhydramine HCl [Benadryl] 25 mg Capsule 25 mg PO BEDTIME PRN (Reason: Sleep) prednisone 20 mg tablet 40 mg PO DAILY 5 Days Qty: 10 0RF Print Language: Kyrgyz
[2024-10-16 10:16] VITALS: PULSE 86; RESP 24; O2SAT 97
[2024-10-16] MEDS: Albuterol Sulfate 5 MG, Albuterol/Iprat 2.5/0.5MG 3 ML 3 ML INHALE (10:16)
[2024-10-16 11:05] LABS: MANUAL DIFF FLAG NO
--- NOTE | 2024-10-16 11:05 | PC.NURSE ---
pt is alert and oriented, skin pwd, respirations slightly labored at bout 22, ls expiatory wheezing in all romero, pt reports having a dry cough and using her inhaler and nebulizer with out improvement, sating at 95% on room air
[2024-10-16 11:07] LABS: Basophils Absolute Auto 0.1 X10*3/uL (0.0-0.2); Basophils Percent Auto 0.4 % (0-2); Eosinophils Absolute Auto 0.1 X10*3/uL (0.0-0.4); Eosinophils Percent Auto 0.7 % (0-4); Hematocrit 41.5 % (37.0-47.0); Hemoglobin 13.8 g/dl (12.0-16.0); Imm Gran Abs Auto 0.04 X10*3/uL (0.00-0.03); Imm Gran Pct Auto 0.3 % (0.0-0.4); Lymphocytes Absolute Auto 4.3 X10*3/uL (1.2-4.9); Lymphocytes Percent Auto 36.2 % (20-40); Mean Corpuscular HGB Conc 33.3 g/dl (31.0-35.0); Mean Corpuscular Hemoglobin 29.8 pg (27.0-33.0); Mean Corpuscular Volume 89.6 fL (80.0-98.0); Mean Platelet Volume 9.5 fL (9.4-12.3); Monocytes Absolute Auto 0.6 X10*3/uL (0.1-1.2); Monocytes Percent Auto 5.3 % (2-11); Neutrophils Absolute Auto 6.7 x10*3/uL (2.0-8.3); Neutrophils Percent Auto 57.1 % (45-73); Platelet Count 322 X10*3/uL (160-400); Red Blood Count 4.63 X10*6/uL (4.20-5.50); Red Cell Distribution Width 13.9 % (11.0-16.0); White Blood Count 11.8 X10*3/uL (4.8-10.8)
[2024-10-16 11:28] VITALS: BP 107/68; PULSE 90; RESP 18; TEMP 36.5; O2SAT 93
[2024-10-16 11:31] LABS: Alanine Aminotransferase 23 U/L (0-31); Alkaline Phosphatase 83 U/L (39-117); Anion Gap 13 (12-20); Aspartate Amino Transferase 29 U/L (5-31); Bilirubin Total 0.3 mg/dL (0.0-1.0); Blood Urea Nitrogen 8 mg/dL (9-16); Calcium 9.1 mg/dL (8.4-10.2); Carbon Dioxide 20 mmol/L (22-29); Chloride 111 mmol/L (96-108); Creatinine Clr Calc Pharmacy 80.2; Estimated Glomerular Filt Rate > 60; Glucose Random 141 mg/dL (60-115); Magnesium 2.1 mg/dL (1.6-2.6); Potassium 3.1 mmol/L (3.3-5.1); Sodium 141 mmol/L (135-145); Total Protein 7.7 g/dL (6.5-8.0)
[2024-10-16 11:54] LABS: Influenza A PCR NEGATIVE (Negative); Influenza B PCR NEGATIVE (Negative); Resp Syncy Virus RNA Qual PCR NEGATIVE (Negative); SARS COV2 PCR INHOUSE NEGATIVE (Negative)
[2024-10-16] MEDS: Doxycycline Monohydrate 100 MG CAPSULE PO (12:07)
[2024-10-16] MEDS: predniSONE 10 MG TABLET 50 MG PO (12:07)
[2024-10-16 12:28] VITALS: O2SAT 97
[2024-10-16 12:57] VITALS: BP 107/68; PULSE 90; RESP 18; TEMP 36.5; O2SAT 97
--- OUTSIDE RECORDS SUMMARY | 2024-10-16 13:03 | XMS_ITS | Data Portability ---
Author Organization [facility], [facility] Address [address] [place] [address] Care Team Providers Care Sales And Training Specialist Name Role Phone [id number] OTHER Assessment No assessment recorded. Plan of Treatment Reminders Order Date Submit Date Provider Last Modified By Organization Details Last Modified Time Details Appointments None recorded. Lab drugs of abuse screen 8 - Drug Name/Date and Time of Last Dose: MS Contin, Percocet and Adderall 11/20/112011 012 [facility], [address] [place] [address], [address], 3 05:57:56 opiates, expanded by GC/ms urine - MS Contin, Percocet and Adderall 11/20/112011 012 [facility], [address] [place] [address], [address], 3 05:57:56 comprehensi ve metabolic panel 2011 012 [facility], [address] [place] [address], [address], 3 03:07:17 drugs of abuse screen 8 - Drug Name/Date and Time last dose:OXYCOD ONE 01/29/12 MS CONTIN 01/29/12 AMPHETAMINE SALT COMBO 01/29/122011 012 [facility], [address] [place] [address], [address], 3 03:09:21 opiates, expanded by GC/ms urine - Drug name/Date and Time last dose: 2011 012 [facility], [address] [place], [address], 3 03:09:21 Referral None recorded. Procedures None recorded. Surgeries None recorded. Imaging None recorded. Medication Orders MS Contin 15 mg tablet,exte nded release 2011 012 [facility] #[id number], [address], [place], [id number], 4 02:49:21 oxycodone 10 mg tablet 2011 012 [facility] #[id number], [address] [place] [address], [id number], 4 02:49:21 Amphetamine Salt Combo 20 mg tablet 2011 012 [facility] #[id number], [address] [place] [address], [id number], 4 02:49:38 ropinirole 1 mg tablet 2011 012 [facility] #[id number], [address], [place], [id number], 3 03:46:43 antipyrine- benzocaine 5.4 %-1.4 % ear drops 2011 012 [facility] #[id number], [address], [place], [id number], 3 03:53:21 Patient TargetsNo targets recorded. Patient Instructions Encounter Date Encounter Id Patient Instructions Last Modified By Organization Details Last Modified Time 09/04/2012 [id number] Discussed quitting smoking.? ? ? DIscussed- using pain drops/ and ibuprophen.? ? ? Call if getting worse tomorrow or if not resolved in 3 wks.? ? ? Pain should lessen in 1-2 d. [email or web address] Not available 09/04/2012 15:26:04 Reason for Referral None Reported. Results Created Date Observation Date Name Description Value Unit Range Abnormal Flag Note LastModifiedBy Organization Detail LastModifiedTime 11/22/19 12 11/22/2011 drugs of abuse scree n 8 amphetamine NEG. negati ve Not Available [address], [address], 11/22/2011 17:00:02 11/22/19 12 11/22/2011 drugs of abuse scree n 8 barbiturates NEG. negati ve Not Available [address], [address], 11/22/2011 17:00:02 11/22/19 12 11/22/2011 drugs of abuse scree n 8 benzodiazepi ne NEG. negati ve Not Available [address], [address], 11/22/2011 17:00:02 11/22/19 12 11/22/2011 drugs of abuse scree n 8 cocaine NEG. negati ve Not Available [address], [address], 11/22/2011 17:00:02 11/22/19 12 11/22/2011 drugs of abuse scree n 8 opiates NEG. negati ve gcop= [facility]MS . Not Available [address], [address], 11/22/2011 17:00:02 11/22/19 12 11/22/2011 drugs of abuse scree n 8 THC-cannabin oids NEG. negati ve Not Available [address], [address], 11/22/2011 17:00:02 11/22/19 12 11/22/2011 drugs of abuse scree n 8 phencylidine NEG. negati ve Not Available [address], [address], 11/22/2011 17:00:02 11/22/19 12 11/22/2011 drugs of abuse scree n 8 methadone NEG. negati ve syva emit II limit s of detec tion (cutt -off value s) ysabel expan d: amphe tamin es: 1000 NG/mL opiat es: 300 NG/mL jeniffer tuate s: 200 NG/mL canna binoi ds: 50 NG/mL benzo diaze pines : 200 NG/mL phenc yclid ine: 25 NG/mL cocai ne: 300 NG/mL metha done: 300 NG/mL Not Available [address], [address], 11/22/2011 17:00:02 11/22/19 12 11/24/2011 opiat e confi rm GC morphine NONE DETECT ED NG/mL normal Not Available [facility] [address], [address], 11/24/2011 21:44:59 11/22/19 12 11/24/2011 opiat e confi rm GC codeine NONE DETECT ED NG/mL normal Not Available [facility] [address], [address], 11/24/2011 21:44:59 11/22/19 12 11/24/2011 opiat e confi rm GC hydrocodone NONE DETECT ED NG/mL normal Not Available [facility] [address], [address], 11/24/2011 21:44:59 11/22/19 12 11/24/2011 opiat e confi rm GC hydromorphon e NONE DETECT ED NG/mL normal Not Available [facility] [address], [address], 11/24/2011 21:44:59 11/22/19 12 11/24/2011 opiat e confi rm GC oxycodone NONE DETECT ED NG/mL normal Not Available [facility] [address], [place], [address], 11/24/2011 21:44:59 11/22/19 12 11/24/2011 opiat e confi rm GC Unknown Analyte this test was perfo rmed by GC/MS , 100 NG/mL cutof f. Not Available [facility] [address], [place], [address], 11/24/2011 21:44:59 02/08/20 12 02/09/2012 drugs of abuse scree n 8 amphetamine NEGATI VE negati ve Not Available [address], [address], 02/09/2012 12:30:44 02/08/20 12 02/09/2012 drugs of abuse scree n 8 barbiturates NEGATI VE negati ve Not Available [address], [address], 02/09/2012 12:30:44 02/08/20 12 02/09/2012 drugs of abuse scree n 8 benzodiazepi ne NEGATI VE negati ve Not Available [address], [address], 02/09/2012 12:30:44 02/08/20 12 02/09/2012 drugs of abuse scree n 8 cocaine NEGATI VE negati ve Not Available [address], [address], 02/09/2012 12:30:44 02/08/20 12 02/09/2012 drugs of abuse scree n 8 opiates * POSITI VE * negati ve gcop= [facility] by GC/MS . Not Available [address], [address], 02/09/2012 12:30:44 02/08/20 12 02/09/2012 drugs of abuse scree n 8 THC-cannabin oids NEGATI VE negati ve Not Available [address], [address], 02/09/2012 12:30:44 02/08/20 12 02/09/2012 drugs of abuse scree n 8 phencylidine NEGATI VE negati ve Not Available [address], [address], 02/09/2012 12:30:44 02/08/20 12 02/09/2012 drugs of abuse scree n 8 methadone NEGATI VE negati ve syva emit II limit s of detec tion (cutt -off value s) ysabel expan d: amphe tamin es: 1000 NG/mL opiat es: 300 NG/mL jeniffer tuate s: 200 NG/mL canna binoi ds: 50 NG/mL benzo diaze pines : 200 NG/mL phenc yclid ine: 25 NG/mL cocai ne: 300 NG/mL metha done: 300 NG/mL Not Available [address], [address], 02/09/2012 12:30:44 02/08/20 12 02/14/2012 opiat e confi rm GC morphine 2539 NG/mL high Not Available [facility] [address], [address], 02/14/2012 09:25:57 02/08/20 12 02/14/2012 opiat e confi rm GC codeine NONE DETECT ED NG/mL normal Not Available [facility] [address], [address], 02/14/2012 09:25:57 02/08/20 12 02/14/2012 opiat e confi rm GC hydrocodone NONE DETECT ED NG/mL normal Not Available [facility] [address], [address], 02/14/2012 09:25:57 02/08/20 12 02/14/2012 opiat e confi rm GC hydromorphon e NONE DETECT ED NG/mL normal Not Available [facility] [address], [address], 02/14/2012 09:25:57 02/08/20 12 02/14/2012 opiat e confi rm GC oxycodone NONE DETECT ED NG/mL normal Not Available [facility] [address], [place], [address], 02/14/2012 09:25:57 02/08/20 12 02/14/2012 opiat e confi rm GC Unknown Analyte this test was perfo rmed by GC/MS , 100 NG/mL cutof f. Not Available [facility] [address], [place], [address], 02/14/2012 09:25:57 09/24/19 13 09/24/2012 CBC w/dif f WBC 10.9 K/uL 3.4-11 .2 Not Available [facility] [address] [place] [address], [id number], 09/24/2012 11:39:10 09/24/19 13 09/24/2012 CBC w/dif f RBC 4.44 M/uL 3.80-4 .80 Not Available [facility] [address] [place] [address], [address], 09/24/2012 11:39:10 09/24/19 13 09/24/2012 CBC w/dif f hemoglobin 13.7 g/dL 12.0-1 5.0 Not Available [facility] [address] [place] [address], [address], 09/24/2012 11:39:10 09/24/19 13 09/24/2012 CBC w/dif f hematocrit 40.1 % 36.0-4 6.0 Not Available [facility] [address] [place] [address], [id number], 09/24/2012 11:39:10 09/24/19 13 09/24/2012 CBC w/dif f MCV 90.3 fL 79.0-9 8.0 Not Available [facility] [address] [place] [address], [address], 09/24/2012 11:39:10 09/24/19 13 09/24/2012 CBC w/dif f MCH 30.9 pg 27.0-3 4.8 Not Available [facility] [address] [place] [address], [address], 09/24/2012 11:39:10 09/24/19 13 09/24/2012 CBC w/dif f MCHC 34.2 g/dL 31.5-3 6.0 Not Available [facility] [address] [place] [address], [address], 09/24/2012 11:39:10 09/24/19 13 09/24/2012 CBC w/dif f RDW 13.6 % 10.8-1 4.6 Not Available [facility] [address] [place] [address], [id number], 09/24/2012 11:39:10 09/24/19 13 09/24/2012 CBC w/dif f MPV 9.8 fL 7.2-10 .5 Not Available [facility] [address] [place] [address], [id number], 09/24/2012 11:39:10 09/24/19 13 09/24/2012 CBC w/dif f platelet count 345 K/uL 130-40 0 Not Available [facility] [address] [place] [address], [id number], 09/24/2012 11:39:10 09/24/19 13 09/24/2012 CBC w/dif f neutrophils 71.2 % 45.3-7 7.7 Not Available [facility] [address] [place] [address], [address], 09/24/2012 11:39:10 09/24/19 13 09/24/2012 CBC w/dif f lymphocytes 20.8 % 12.3-3 9.7 Not Available [facility] [address] [place] [address], [id number], 09/24/2012 11:39:10 09/24/19 13 09/24/2012 CBC w/dif f monocytes 6.5 % 4.1-12 .8 Not Available [facility] [address] [place] [address], [id number], 09/24/2012 11:39:10 09/24/19 13 09/24/2012 CBC w/dif f eosinophils 1.00 % 0.00-7 .20 Not Available [facility] [address] [place] [address], [id number], 09/24/2012 11:39:10 09/24/19 13 09/24/2012 CBC w/dif f basophils 0.20 % 0.00-2 .80 Not Available [facility] [address] [place] [address], [id number], 09/24/2012 11:39:10 09/24/19 13 09/24/2012 CBC w/dif f absolute neutrophil 7.7 K/uL 1.4-7. 7 Not Available [facility] [address] [place] [address], [id number], 09/24/2012 11:39:10 09/24/19 13 09/24/2012 CBC w/dif f absolute lymphocyte 2.3 K/uL 0.6-3. 2 Not Available [facility] [address] [place] [address], [id number], 09/24/2012 11:39:10 09/24/19 13 09/24/2012 CBC w/dif f absolute monocytes 0.7 K/uL 0.1-0. 6 high Not Available [facility] [address] [place] [address], [id number], 09/24/2012 11:39:10 09/24/19 13 09/24/2012 CBC w/dif f absolute eosinophil 0.11 K/uL 0.01-0 .50 Not Available [facility] [address] [place] [address], [address], 09/24/2012 11:39:10 09/24/19 13 09/24/2012 CBC w/dif f absolute basophils 0.02 K/uL Not Available [facility] [address] [place] [address], [id number], 09/24/2012 11:39:10 09/24/19 13 09/24/2012 CBC w/dif f immature granulocyte 0.30 % 0.00-0 .50 Not Available [facility] [address] [place] [address], [id number], 09/24/2012 11:39:10 09/24/19 13 09/24/2012 CBC w/dif f absolute immature granulocyte 0.03 K/uL 0.00-0 .03 Not Available [facility] [address] [place] [address], [id number], 09/24/2012 11:39:10 09/24/19 13 09/24/2012 C-matheus ctive prote in (CRP) C-reactive protein 0.4 mg/dL 0.0-0. 5 Not Available [facility] [address] [place] [address], [id number], 09/24/2012 12:15:59 09/24/19 13 09/24/2012 compr ehens antonio metab olic panel glucose 78 mg/dL 70-99 Not Available [facility] [address] [place] [address], [id number], 09/24/2012 12:16:01 09/24/19 13 09/24/2012 compr ehens anotnio metab olic panel BUN 10 mg/dL 6-19 Not Available [facility] [address] [place], [address], 09/24/2012 12:16:01 09/24/19 13 09/24/2012 compr ehens antonio metab olic panel creatinine 0.7 mg/dL 0.5-1. 5 Not Available [facility] [address] [place], [address], 09/24/2012 12:16:09/24/19 13 09/24/2012 compr ehens antonio metab olic panel GFR >60 Not Available [facility] [address] [place] [address], [id number], 09/24/2012 12:16:09/24/19 13 09/24/2012 compr ehens antonio metab olic panel sodium 140 mEq/L 133-14 5 Not Available [facility] [address] [place], [address], 09/24/2012 12:16:09/24/19 13 09/24/2012 compr ehens antonio metab olic panel potassium 4.1 mEq/L 3.3-5. 1 Not Available [facility] [address] [place] [address], [id number], 09/24/2012 12:16:09/24/19 13 09/24/2012 compr ehens antonio metab olic panel chloride 101 mEq/L 96-108 Not Available [facility] [address] [place] [address], [address], 09/24/2012 12:16:09/24/19 13 09/24/2012 compr ehens antonio metab olic panel CO2 27 mEq/L 21-35 Not Available [facility] [address] [place], [address], 09/24/2012 12:16:09/24/19 13 09/24/2012 compr ehens antonio metab olic panel calcium 9.4 mg/dL 8.4-10 .3 Not Available [facility] [address] [place] [address], [id number], 09/24/2012 12:16:09/24/19 13 09/24/2012 compr ehens antonio metab olic panel total bilirubin 0.6 mg/dL 0.0-1. 5 Not Available [facility] [address] [place] [address], [id number], 09/24/2012 12:16:09/24/19 13 09/24/2012 compr ehens antonio metab olic panel alkaline phosphatase 53 U/L 39-117 Not Available [facility] [address] [place] [address], [id number], 09/24/2012 12:16:09/24/19 13 09/24/2012 compr ehens antonio metab olic panel AST (SGOT) 18 U/L 0-37 Not Available [facility] [address] [place] [address], [id number], 09/24/2012 12:16:01 09/24/19 13 09/24/2012 compr ehens antonio metab olic panel ALT (SGPT) 19 U/L 0-40 Not Available [facility] [address] [place] [address], [id number], 09/24/2012 12:16:09/24/19 13 09/24/2012 compr ehens antonio metab olic panel total protein 6.5 g/dL 6.5-8. 0 Not Available [facility] [address] [place] [address], [id number], 09/24/2012 12:16:09/24/19 13 09/24/2012 compr ehens antonio metab olic panel albumin 4.2 g/dL 3.9-4. 8 Not Available [facility] [address] [place], [address], 09/24/2012 12:16:01 09/24/19 13 09/24/2012 compr ehens antonio metab olic panel globulin 2.3 gm/dL 1.0-4. 8 Not Available [facility] [address] [place], [address], 09/24/2012 12:16:01 09/24/19 13 09/24/2012 compr ehens antonio metab olic panel A/G ratio 1.8 gm/dL 1.0-4. 8 Not Available [facility] [address] [place] [address], [id number], 09/24/2012 12:16:01 09/24/19 13 09/24/2012 compr ehens antonio metab olic panel anion gap 16 mEq/L 10-20 Not Available [facility] [address] [place] [address], [address], 09/24/2012 12:16:01 09/24/19 13 09/24/2012 ESR, weste rgren ESR-westergr en 13 mm/HR 0-25 Not Available [facility] [address] [place] [address], [id number], 09/24/2012 13:24:12 09/24/19 13 09/28/2012 strep tococ cus pneum oniae igg Ab (23 serot ypes) serotype 1 (1) 0.3 mcg/m L >8.2 low Not Available [facility] [address] [place] [address], [id number], 09/28/2012 14:24:22 09/24/19 13 09/28/2012 strep tococ cus pneum oniae igg Ab (23 serot ypes) serotype 2(2) 0.6 mcg/m L >7.4 low Not Available [facility] [address] [place], [address], 09/28/2012 14:24:22 09/24/19 13 09/28/2012 strep tococ cus pneum oniae igg Ab (23 serot ypes) serotype 3 (3) 2.1 mcg/m L >6.9 low Not Available [facility] [address] [place], [address], 09/28/2012 14:24:22 09/24/19 13 09/28/2012 strep tococ cus pneum oniae igg Ab (23 serot ypes) serotype 4 (4) 0.2 mcg/m L >4.1 low Not Available [facility] [address] [place] [address], [id number], 09/28/2012 14:24:22 09/24/19 13 09/28/2012 strep tococ cus pneum oniae igg Ab (23 serot ypes) serotype 5 (5) 0.9 mcg/m L >28.8 low Not Available [facility] [address] [place] [address], [id number], 09/28/2012 14:24:22 09/24/19 13 09/28/2012 strep tococ cus pneum oniae igg Ab (23 serot ypes) serotype 8 (8) 0.8 mcg/m L >13.3 low Not Available [facility] [address] [place], [address], 09/28/2012 14:24:22 09/24/19 13 09/28/2012 strep tococ cus pneum oniae igg Ab (23 serot ypes) serotype 9N (9) 0.7 mcg/m L >16.6 low Not Available [facility] [address] [place] [address], [id number], 09/28/2012 14:24:22 09/24/19 13 09/28/2012 strep tococ cus pneum oniae igg Ab (23 serot ypes) serotype 12F (12) 0.3 mcg/m L >4.3 low Not Available [facility] [address] [place] [address], [id number], 09/28/2012 14:24:22 09/24/19 13 09/28/2012 strep tococ cus pneum oniae igg Ab (23 serot ypes) serotype 14 (14) 1.2 mcg/m L >22.9 low Not Available [facility] [address] [place] [address], [id number], 09/28/2012 14:24:22 09/24/19 13 09/28/2012 strep tococ cus pneum oniae igg Ab (23 serot ypes) serotype 17F (17) 2.3 mcg/m L >44.8 low Not Available [facility] [address] [place] [address], 92009, 09/28/2012 14:24:22 09/24/19 13 09/28/2012 strep tococ cus pneum oniae igg Ab (23 serot ypes) serotype 19F (19) 6.7 mcg/m L >16.0 low Not Available [facility] [address] [place] [address], [id number], 09/28/2012 14:24:22 09/24/19 13 09/28/2012 strep tococ cus pneum oniae igg Ab (23 serot ypes) serotype 20 (20) 0.5 mcg/m L >12.1 low Not Available [facility] [address] [place] [address], [id number], 09/28/2012 14:24:22 09/24/19 13 09/28/2012 strep tococ cus pneum oniae igg Ab (23 serot ypes) serotype 22F (22) 3.8 mcg/m L >32.4 low Not Available [facility] [address] [place] [address], [id number], 09/28/2012 14:24:22 09/24/19 13 09/28/2012 strep tococ cus pneum oniae igg Ab (23 serot ypes) serotype 23F (23) 4.0 mcg/m L >49.0 low Not Available [facility] [address] [place] [address], [id number], 09/28/2012 14:24:22 09/24/19 13 09/28/2012 strep tococ cus pneum oniae igg Ab (23 serot ypes) serotype 6B (26) 1.6 mcg/m L >15.3 low Not Available [facility] [address] [place] [address], [id number], 09/28/2012 14:24:22 09/24/19 13 09/28/2012 strep tococ cus pneum oniae igg Ab (23 serot ypes) serotype 10A (34) 1.6 mcg/m L >25.5 low Not Available [facility] [address] [place] [address], 51502, 09/28/2012 14:24:22 09/24/19 13 09/28/2012 strep tococ cus pneum oniae igg Ab (23 serot ypes) serotype 11A (43) 0.4 mcg/m L >9.7 low Not Available [facility] [address] [place] [address], [address]1114, 09/28/2012 14:24:22 09/24/19 13 09/28/2012 strep tococ cus pneum oniae igg Ab (23 serot ypes) serotype 7F (51) 2.1 mcg/m L >30.8 low Not Available [facility] [address] [place] [address], [id number], 09/28/2012 14:24:22 09/24/19 13 09/28/2012 strep tococ cus pneum oniae igg Ab (23 serot ypes) serotype 15B (54) 0.3 mcg/m L >12.8 low Not Available [facility] [address] [place] [address], [id number], 09/28/2012 14:24:22 09/24/19 13 09/28/2012 strep tococ cus pneum oniae igg Ab (23 serot ypes) serotype 18C (56) 1.5 mcg/m L >7.0 low Not Available [facility] [address] [place], [address], 09/28/2012 14:24:22 09/24/19 13 09/28/2012 strep tococ cus pneum oniae igg Ab (23 serot ypes) serotype 19A (57) 5.1 mcg/m L >28.1 low Not Available [facility] [address] [place], [address], 09/28/2012 14:24:22 09/24/19 13 09/28/2012 strep tococ cus pneum oniae igg Ab (23 serot ypes) serotype 9V (68) 1.5 mcg/m L >44.0 low Not Available [facility] [address] [place], [address], 09/28/2012 14:24:22 09/24/19 13 09/28/2012 strep tococ cus pneum oniae igg Ab (23 serot ypes) serotype 33F (70) 0.3 mcg/m L >7.5 low to aid in inter preta tion of the pneum ococc al antib yesy resul ts and to ensur e consi stenc y in inter preta tion with other immun odefi cienc y pract ices and the aaaai pract ice guide lines (on inter preta tion of pneum ococc al vacci ne respo nses) we sugge st that the follo wing crite fanny would BE consi stent with a julian l immun e respo nse: 1) A titer of 1.3 mcg/m L antib yesy or more, irres pecti ve of a 4-fol d sepulveda e from the pre-v accin ation respo nse, if the titer IS less than 1.3 mcg/m L. 2) in child dashawn ages 2-5 years a titer of 1.3 mcg/m L or great er to >=50% of the serot ypes; in adult s a titer of 1.3 mcg/m L or great er to >=70% of serot ypes. refer ences : 1. asses sment and clini venu inter preta tion of polys accha ride antib yesy respo nses. mil Vazquez and denia crawford RU. annal s of aller gy, asthm a and immun ology , 2007, 99: 462-4 . 2. influ ence of age on the respo nse to strep tococ cus pneum oniae vacci ne in patie nts with recur rent infec tions and julian l immun oglob ulin claudia ntrat ions. denia crawford RU, norma cuevas, jaden jose III, fc ET al, journ al of aller gy and clini venu immun ology , 1997, 102: 215-2 1. test perfo rmed by: [facility] [address] , [place] [address] labor atory direc tor: lupe grissom III, M.Jewel. Not Available [facility] [address] [place] [address], [id number], 09/28/2012 14:24:22 09/24/19 13 09/28/2012 igm quant itati on, serum immunoglobul in M (IgM), 104 mg/dL 37 - 286 test perfo rmed by: [facility] [place] [address] [place] [address] labor atory direc tor: hernandez vazquez, pH.D. Not Available [facility] [address] [place] [address], [id number], 09/28/2012 14:24:23 09/24/19 13 09/28/2012 igg quant itati on, serum immunoglobul in g (IgG), 780 mg/dL refer ence range : 767 - 1590 test perfo rmed by: [facility] [place] [address], [place] [address] labor atory [facility] tor: hernandez vazquez, pH.D. Not Available [facility] [address] [place], [address], 09/28/2012 14:24:24 12/13/19 12 12/13/2011 imagi ng/di agnos tic resul t No observ ation record ed. [facility] [address] [place], [place], [id number], 04/12/2013 05:57:56 12/16/19 12 12/15/2011 imagi ng/di agnos tic resul t No observ ation record ed. [facility] [address] [place], [address], 04/13/2013 03:00:49 12/16/19 12 12/16/2011 imagi ng/di agnos tic resul t No observ ation record ed. [facility] [address] [place], [address], 04/13/2013 03:04:15 01/25/20 12 01/23/2012 imagi ng/di agnos tic resul t No observ ation record ed. [address], [address] 04/13/2013 03:10:05 01/26/20 12 01/24/2012 imagi ng/di agnos tic resul t No observ ation record ed. [address], [address] 04/13/2013 03:09:51 01/26/20 12 01/23/2012 imagi ng/di agnos tic resul t No observ ation record ed. [address], [address] 04/13/2013 03:09:51 01/27/20 12 01/25/2012 imagi ng/di agnos tic resul t No observ ation record ed. [address] [place], [address] 04/13/2013 03:09:34 02/26/20 13 02/20/2013 pulmo nary funct ion test* No observ ation record ed. [facility] [id number] 04/13/2013 04:17:21 02/29/20 13 pulmo nary funct ion test* No observ ation record ed. [facility] [id number] 04/13/2013 04:16:52 04/11/20 13 04/08/2013 imagi ng/di agnos tic resul t No observ ation record ed. [facility] [id number] 04/11/2013 13:16:40 Result Notes None recorded. 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 Not Available [facility] 3 03:09:05 Extrinsic asthma with asthma attack Active 2005 Not Available [facility] 3 03:09:05 Palpitatio ns 27827997 Active 2005 Not Available [facility] 3 03:09:05 Constipati on 84444379 Completed 200508/07/2013 Not Available [facility] 3 02:02:38 Sleep disorder 65454677 Active Not Available [facility] 3 03:09:05 Allergic rhinitis 14308030 Active 2007 Not Available [facility] 3 03:09:05 Anxiety state 951201264 Active 2006 Not Available [facility] 3 03:09:05 Neck pain 16441408 Completed 200508/07/2013 Not Available [facility] 3 02:00:34 Attention deficit hyperactiv ity disorder, predominan tly inattentiv e type 66070537 Active Not Available [facility] 3 03:09:05 Allergic asthma without status asthmaticu s 43541980 Active 2005 Not Available [facility] 3 03:09:05 Contact dermatitis due to plants, except food Completed 200508/07/2013 Not Available [facility] 3 02:02:49 Pneumonia 159357218 Completed 200508/07/2013 Not Available [facility] 3 02:02:25 Allergic rhinitis caused by pollen 65842208 Active 2005 Not Available [facility] 3 03:09:05 Chest pain 95579606 Completed 200608/07/2013 Not Available [facility] 3 02:01:46 Asthma 912571935 Active 2006 Not Available [facility] 3 03:09:05 Primary fibromyalg ia syndrome 64378189 Active Not Available [facility] 3 03:09:05 Problem Notes None recorded. Procedures Surgical History Date Name Laterality Status Provider Name and Address Organization Details Recorded Time 09/04/20 12 Smoking cessation counseling completed Eric Us MD [address] [place] [address], [phone], [facility] 09/04/2012 15:26:18 08/08/20 12 Shave Biopsy completed Aisha Maldonado [address] [place] [address], [phone], [facility] 08/08/2012 11:42:16 05/29/20 12 Wart completed Aisha Maldonado [address] [place] [address], [phone], [facility] 05/29/2012 14:37:41 09/18/18 92 Tubal Ligation completed Not Available [facility] 08/04/2011 06:06:16 09/18/18 92 completed Not Available [facility] 08/04/2011 06:06:16 09/18/18 91 Cholecystectomy completed Not Available [facility] 08/04/2011 06:06:16 09/18/18 91 completed Not Available [facility] 08/04/2011 06:06:16 09/18/18 88 completed Not Available [facility] 08/04/2011 06:06:16 Imaging Results Imaging Date Name Status LastModified by Ke arleysunita Details LastModified Time 12/13/2011 imaging/diagno stic result completed [facility] [address] [place], [address], 04/12/2013 05:57:56 12/15/2011 imaging/diagno stic result completed [facility] [address] [place], [address], 04/13/2013 03:00:49 12/16/2011 imaging/diagno stic result completed [facility] [address] [place], [address], 04/13/2013 03:04:15 01/23/2012 imaging/diagno stic result completed [address], [address] 04/13/2013 03:10:05 01/24/2012 imaging/diagno stic result completed [facility] [address] [place] [address], [address] 04/13/2013 03:09:51 01/23/2012 imaging/diagno stic result completed [address], [address] 04/13/2013 03:09:51 01/25/2012 imaging/diagno stic result completed [address], [address] 04/13/2013 03:09:34 02/20/2013 pulmonary function test* completed [facility] [id number] 04/13/2013 04:17:21 02/28/2013 pulmonary function test* completed [facility] [id number] 04/13/2013 04:16:52 04/08/2013 imaging/diagno stic result completed [address] [address] 04/11/2013 13:16:40 Procedure Notes None recorded. Medical Equipment None Reported. Allergies Allergen ID Allergen Name Allergen Category Reaction Reaction Severity Criticality Documentation Date Start Date Code Code System Note Provider Name and Address Organization Details Recorded Time 08736 Dilantin medicatio n other severe Not available 04/06/201162488 0 RxNorm body aches Not Available [facility] 1 06:05:41 99019 carbamaze pine medicatio n other severe Not available 04/06/20112001 RxNorm body aches Not Available [facility] 1 06:05:41 48837 fosphenyt oin medicatio n other severe Not available 04/06/2011 70163 RxNorm body aches Not Available [facility] 1 06:05:41 [address]8985 Lamictal medicatio n other severe Not available 02/06/2012 70181 2 RxNorm Hepat itis Aisha Maldonado [address] [place] [address], [place], [address] [place] [address] 2 13:32:31 Medications Name Sig Start Date Stop Date Status Note LastModified by Organization Details LastModified Time Prescript ion - Renewal active Nebulize r equipmen t Not Available Not Available Not Available Prescript ion - Prior Authoriza tion Request active Amphetam ine salts Not Available Not Available Not Available Singulair 10 mg tablet take 1/2 tab for 3 days 02/10 completed Not Available Not Available Not Available fluconazo le 100 mg tablet active Not Available Not Available Not Available nystatin 100,000 unit/mL oral suspensio n active Not Available Not Available Not Available prednison e 10 mg tablet Take 4 tablet (40 mg) by oral route once daily for four days, 3 tablets (30 mg) by oral route once daily for four days, 2 tablets (20mg) once daily for four days, 1 tablet (10 mg) once daily for four days, then stop active Not Available Not Available No t Available ropinirol e 1 mg tablet Take 1 tablet every day by oral route at bedtime for 30 days. active Not Available Not Available No t Available lactulose 10 gram/15 mL oral syrup 2006 active Take 30.00 ml daily as needed Not Available Not Available Not Available albuterol sulfate 2.5 mg/3 mL (0.083 %) solution for nebulizat ion 2006 active Take 3.00 ml every 4 hours Not Available Not Available Not Available azithromy hosea 250 mg tablet active Not Available Not Available No t Available alprazola m 1 mg tablet take 1 tablet by mouth three times a day if needed active Not Available Not Available No t Available levetirac etam 500 mg tablet Take 1 tablet twice a day by oral route for 30 days. active Not Available Not Available No t Available Keflex 500 mg capsule Take 1 capsule every 6 hours by oral route with meals for 6 days. active per hosp d.c Not Available Not Available Not Available prednison e 20 mg tablet active Not Available Not Available Not Available sertralin e 100 mg tablet Take 2 tablets every day by oral route for 30 days. active Not Available Not Available No t Available Generlac 10 gram/15 mL oral solution active Not Available Not Available Not Available methylpre dnisolone 4 mg tablet active Not Available Not Available Not Available Medrol 32 mg tablet Take 1 tablet twice a day by oral route for 14 days. active per hosp d.c - pt to taper Not Available Not Available Not Available hydroxyzi ne pamoate 50 mg capsule active Not Available Not Available Not Available Aerochamb er 2006 active Take 1.00 ea as directed Not Available Not Available Not Available oxycodone 15 mg tablet Take 1 tablet 4 times a day by oral route for 28 days. 02/09 completed Not Available Not Available Not Available MS Contin 15 mg tablet,ex tended release Take 1 tablet every 12 hours by oral route for 21 days. 02/28 completed Not Available Not Available Not Available DuoNeb 0.5 mg-3 mg(2.5 mg base)/3 mL solution for nebulizat ion Inhale 3 mL 4 times a day by nebuliza tion route. active Not Available Not Available No t Available methocarb ban 750 mg tablet active Not Available Not Available No t Available ropinirol e 0.25 mg tablet active Not Available Not Available Not Available antipyrin e-benzoca ine 5.4 %-1.4 % ear drops Instill 2-4 drops by otic route every 4 hours as needed. 2011 active Not Available Not Available Not Avai lable Xopenex 1.25 mg/3 mL solution for nebulizat ion Inhale 3 mL every 2 hours by nebuliza tion route as needed for 30 days. 03/09 completed Not Available Not Available Not Available Advair Diskus 500 mcg-50 mcg/dose powder for inhalatio n 2006 active Take 1.00 disks twice daily Not Available Not Available Not Available gabapenti n 300 mg capsule Take 1 capsule 3 times a day by oral route for 30 days. active Not Available Not Available No t Available omeprazol e 20 mg capsule,d elayed release active Not Available Not Available Not Available gabapenti n 100 mg capsule active Not Available Not Available Not Available MS Contin 30 mg tablet,ex tended release Take 1 tablet every 12 hours by oral route for 28 days. 02/09 completed Not Available Not Available Not Available lorazepam 1 mg tablet TAKE 1 TABLET BY MOUTH THREE TIMES DAILY 2011 active Not Available Not Available Not Avai lable cefuroxim e axetil 500 mg tablet active Not Available Not Available Not Available Klonopin 1 mg tablet Take 1 tablet 3 times a day by oral route as needed for 30 days. 10/09 completed Changed to Lorazepa m by hospital Not Available Not Available Not Available sertralin e 50 mg tablet Take 1/2 tablet (25 mg) by oral route once daily with f/u in 2 weeks to adjust dosage active Not Available Not Available No t Available Ambien 5 mg tablet Take 1 tablet every day by oral route at bedtime as needed for 30 days. 11/16 completed Not Available Not Available Not Available ipratropi um bromide 0.02 % solution for inhalatio n active Not Available Not Available Not Available Adderall 10 mg tablet Take 1 tablet twice a day by oral route. 2010 active Not Available Not Available Not Avai lable oxycodone 5 mg tablet active pt states she flushed down toilet Not Available Not Available Not Available Benadryl 25 mg capsule Take 1 capsule every 6 hours by oral route as needed. active Not Available Not Available No t Available Amphetami ne Salt Combo 10 mg tablet TAKE 1 TABLET BY MOUTH TWICE A DAY active Not Available Not Available No t Available Amphetami ne Salt Combo 20 mg tablet Take 1 tablet every day by oral route. active Not Available Not Available No t Available Xolair 150 mg subcutane ous solution Inject 1.2 mL every 2 weeks by subcutan eous route. active Not Available Not Available No t Available Spiriva with HandiHale r 18 mcg and inhalatio n capsules 2006 active Take 1.00 caps daily Not Available Not Available Not Available Atrovent HFA 17 mcg/actua tion aerosol inhaler Inhale 6 puffs 3 times a day by inhalati on route. active Not Available Not Available No t Available Lamictal as directed active 25 mg x 2 wks ,50 mg x 2 weeks -then 100mg daily from Dr. Zimmer Not Available Not Available Not Available ProAir HFA 90 mcg/actua tion aerosol inhaler INHALE 2 PUFFS BY MOUTH EVERY 4 HOURS NEEDED active Not Available Not Available No t Available Xopenex HFA 45 mcg/actua tion aerosol inhaler active Not Available Not Available Not Available Symbicort 160 mcg-4.5 mcg/actua tion HFA aerosol inhaler active Not Available Not Available Not Available oxycodone 10 mg tablet Take 1 tablet 4 times a day by oral route for 21 days. 02/28 completed Not Available Not Available Not Available Alvesco 160 mcg/actua tion aerosol inhaler Inhale 4 puffs twice a day by inhalati on route. active Not Available Not Available No t Available Lamictal XR 200 mg tablet,ex tended release active Not Available Not Available Not Available Prevacid 24Hr 15 mg capsule,d elayed release Take 1 capsule every day by oral route. active Not Available Not Available No t Available Suboxone 8 mg-2 mg sublingua l film active Not Available Not Available Not Available Lamictal XR 250 mg tablet,ex tended release Take 1 tablet every day by oral route. active Not Available Not Available No t Available lactulose 20 gram/30 mL oral solution Take 30 mL every day by oral route. 2011 active Not Available Not Available Not Avai lable Vitals Date Recorded Body weight Heart rate Systolic blood pressure Diastolic blood pressure Provider Name and Address Organization Details Last Updated DateTime 11/22/2011 01212.550 3 g 78 /min 124 mm[Hg] 80 mm[Hg] Olga Liz LPN [facility] 11/22/2011 10:08:55 Date Recorded Body height Body weight Body mass index (BMI) Heart rate Oxygen saturation Oxygen saturation in Arterial blood by Pulse oximetry Systolic blood pressure Diastolic blood pressure Provider Name and Address Organization Details Last Updated DateTime 2 156.21 cm 47561.0 97040 g 33.5 kg/m2 104 /min 98 % 98 % 112 mm[Hg] 62 mm[Hg] Gale Wong MA [facility] 2 15:58:50 Date Recorded Body height Body weight Body mass index (BMI) Heart rate Systolic blood pressure Diastolic blood pressure Provider Name and Address Organization Details Last Updated DateTime 2 154.94 cm 76178.4 4186 g 33.6 kg/m2 60 /min 100 mm[Hg] 70 mm[Hg] Olga Liz LPN [facility] 2 14:07:59 Date Recorded Body height Body weight Body mass index (BMI) Heart rate Systolic blood pressure Diastolic blood pressure Provider Name and Address Organization Details Last Updated DateTime 2 154.94 cm 41426.3 47143 g 34.3 kg/m2 72 /min 138 mm[Hg] 84 mm[Hg] Nedra Avina [facility] 2 09:02:34 Date Recorded Body height Provider Name an d Address Organization Details Last Updated DateTime 09/04/2012 154.94 cm Dotty valente [facility] 09/04/2012 14:56:38 Date Recorded Body temperature Provider Name a nd Address Organization Details Last Updated DateTime 09/04/2012 98.4 [degF] Dotty Street [facility] 09/04/2012 15:00:29 Date Recorded Heart rate Systolic blood pressure Diastolic blood pressure Provider Name and Address Organization Details Last Updated DateTime 09/04/2012 80 /min 128 mm[Hg] 70 mm[Hg] Dotty Street [facility] 09/04/2012 15:02:19 Social History Question Answer Notes LastModified by Organizat ion Details LastModified Time Tobacco Smoking Status Current [facility] [place] 02/08/2012 15:58:51 What Is Your Occupation? Currently On Disability Due To Allergies And Breathing Issues Information not available 01/31/2011 Live Alone Or With Others? With Others Lives With , [id number], Daughter, Grandson, And Two Sons Information not available 01/31/2011 Marital Status Willi Rich Information not available 01/31/2011 Sex: Unknown Functional Status None recorded. Mental Status None recorded. Family History Relationship Description Onset Age of this Age Resolved Age Notes LastModified by Organization Details LastModified Time Father Diabetes mellitus previo usly record ed as Diabet es [email or web address] [id number] Not available 04/29/2013 03:00:29 Father Myocardial infarction 65 74 [email or web address] [id number] Not available 04/29/2013 03:00:29 Father Malignant tumor of prostate previo usly record ed as Cancer - Prosta te [email or web address] [id number] Not available 04/29/2013 03:00:29 Mother Dementia Alzhei flaquita's [email or web address] [id number] Not available 04/29/2013 03:00:29 Notes:Father adopted Medical History Condition Response Anxiety Y Asthma Y Seizures Y Sleep Apnea Y PSYCHIATRIC Y RESPIRATORY Y Gynecological HistoryNo gynecological history recorded. Obstetrics History GPAL:G 0 P 0 0 0 0 Immunizations Vaccine Type Date Status Note Provider Nam e and Address Organization Details Recorded Time Influenza, split virus, trivalent, preservative 1 completed Not Available [facility] 10/05/2019 02:34:20 Past Encounters Encounter ID Performer Location Encounter Start Date Encounter Closed Date Diagnosis/Indication Diagnosis SNOMED-CT Code Diagnosis ICD10 Code Diagnosis Note [id number] [facility], [address] [place] [address] 11/29/2005 11:21:19 12/02/2005 12:35:29 [id number] [facility], [address] [place] [address] 12/09/2005 13:36:30 12/09/2005 16:14:00 [id number] [facility], [address] [place] [address] 02/10/2006 15:03:54 10/08/2008 02:02:29 [id number] [facility] [address] [place] [address] 02/10/2006 15:32:23 10/08/2008 02:02:29 [id number] [facility], [address]ICE [address] [place] [address] 02/17/2006 11:25:32 02/17/2006 14:00:04 [id number] [facility], OFFICE [address] [place] [address] 02/23/2006 15:11:38 10/08/2008 02:02:29 [id number] [facility], OFFICE [address] [facility] [place] [address] 03/07/2006 14:05:34 10/08/2008 02:02:29 [id number] [facility] OFFICE [address] [place] [address] 03/25/2006 10:02:20 03/25/2006 12:12:06 [id number] [facility], OFFICE [address] [place] [address] 04/03/2006 09:53:58 04/03/2006 13:37:50 [id number] FP, [facility] [address] [facility] [place] [address] 04/22/2006 00:00:00 10/08/2008 02:02:29 [id number] [facility], OFFICE [address] [place] [address] 05/02/2006 14:53:55 05/02/2006 16:47:20 [id number] [facility], [facility] [address] [facility] [place] [address] 04/24/2006 00:00:00 10/08/2008 02:02:29 [id number] [facility], OFFICE [address] [place] [address] 06/01/2006 10:24:20 06/01/2006 14:04:47 [id number] [facility], OFFICE [address] [place] [address] 08/31/2006 09:47:52 09/01/2006 14:39:36 [id number] [facility], OFFICE [address] [place] [address] 10/19/2006 09:29:42 10/19/2006 11:28:44 [id number] [facility], OFFICE [address] [place] [address] 10/20/2006 11:37:45 10/20/2006 16:33:40 [id number] [facility], OFFICE [address] [place] [address] 10/26/2006 14:56:42 10/27/2006 08:43:56 [id number] [facility], OFFICE [address] [facility] [place] [address] 01/22/2007 11:45:31 01/23/2007 11:08:32 [id number] [facility], [facility], OFFICE [address] [facility] [place] [address] 01/26/2007 09:29:45 01/26/2007 11:31:49 [id number] [facility], OFFICE [address] [facility] [place] [address] 03/13/2007 08:48:38 03/13/2007 15:28:14 [id number] [facility], OFFICE [address] [facility] [place] [address] 03/14/2007 08:11:45 03/14/2007 10:23:27 [id number] [facility], OFFICE [address] [facility] [place] [address] 04/16/2007 08:04:48 04/16/2007 10:38:24 [id number] [facility] OFFICE [address] [facility] [place] [address] 04/17/2007 09:11:14 04/17/2007 11:08:08 [id number] [facility], OFFICE [address] [facility] [place] [address] 04/18/2007 09:20:42 04/18/2007 11:15:41 [id number] [facility], OFFICE [address] [facility] [place] [address] 05/01/2007 09:33:59 05/01/2007 12:22:51 [id number] [facility] OFF[facility] [address] [facility] [place] [address] 08/16/2007 08:05:19 10/08/2008 02:02:29 [id number] [facility], OFFICE [address] [place] [address] 08/20/2007 07:30:39 10/08/2008 02:02:29 [id number] [facility] [address] [place] [address] 08/20/2007 09:08:20 08/21/2007 09:14:14 [id number] LAB - INC [address] [place] [address] 08/16/2007 00:00:00 10/08/2008 02:02:29 [id number] [facility], [facility], [address] [place] [address] 09/14/2007 08:18:39 10/08/2008 02:02:29 [id number] , [facility], [address] [place] [address] 10/11/2007 09:32:44 10/08/2008 02:02:29 [id number] , [facility], [address] [place] [address] 11/06/2007 08:11:40 10/08/2008 02:02:29 [id number] , [facility], OFFICE [address] [place] [place] [facility] [place] [address] 01/31/2011 13:36:53 02/03/2011 14:28:59 [id number] , [facility], OFF[address] [place] [facility] [place] [address] 02/07/2011 10:44:54 02/09/2011 11:12:57 [id number] Radiology , C [address] [place] [place] [facility] [place] [address] 02/09/2011 13:50:14 02/10/2011 11:00:53 [id number] , [facility], OFFICE [address] [place] [facility] [place] [address] 04/07/2011 11:08:35 04/07/2011 12:36:55 [id number] , C, OFF[address] [place] [place] [facility] [place] [address] 05/16/2011 09:09:40 05/16/2011 10:04:45 [id number] , [facility], OFFICE [address] [place] [facility] [place] [address] 05/24/2011 13:08:17 05/24/2011 14:16:41 [id number] , C, OFF[address] [place] [facility] [place] [address] 06/06/2011 14:22:30 06/06/2011 15:21:37 [id number] , C, OFF[address] [place] [facility] [place] [address] 07/06/2011 13:30:31 07/06/2011 14:22:26 [id number] , C, [address] [place] [address] 09/01/2011 08:47:24 09/01/2011 09:50:33 [id number] , [facility], OFFICE [address] [place] [address] [place] [address] 09/20/2011 14:11:53 09/20/2011 15:04:05 [id number] , [facility], OFFICE [address] [facility] [place] [address] 11/22/2011 09:47:29 11/22/2011 11:22:46 [id number] , [facility], OFFICE [address] [facility] [place] [address] 02/08/2012 15:36:44 02/08/2012 17:20:14 [id number] , [facility], OFFICE [address] [place] [address] [place] [address] 05/29/2012 13:43:47 05/29/2012 14:53:23 [id number] Aisha Maldonado , [facility], OFFICE [address] [facility] [place] [address] 08/08/2012 08:49:09 08/08/2012 11:27:24 [id number] Migdalia Correa , [facility], OFFICE [address] [place] [address] [place] [address] 09/04/2012 14:37:22 09/04/2012 17:16:21 Health Concerns Section Related Observation LastModified by Organization Detai ls LastModified Time None Recorded Concern Status LastModified by Organization Details LastModified Time None Recorded Advance Directives Directive None Recorded Payers Encounter Date Sequence Insurance Name Policy Number Policy Mcmahon Covered Member ID Mcmahon Member ID Guarantor Name 11/22/2011 1 [place] [facility] Olga Rich [id number] Olga Rich 02/08/2012 1 [place] [facility] Olga Rich [id number] Olga Rich 05/29/2012 1 [place] [facility] Olga Rich [id number] Olga Rich 08/08/2012 1 [place] [facility] Olga Rich [id number] Olga Rich 09/04/2012 1 [place] [facility] Olga Rich [id number] Olga Hilario Notes Date Note Type Note Provider Name and Address Organization Details Recorded Time 11/22/2011 text/html Pt also c/o wart s on top of R foot; she has had this for two years. She had them treated by a derm last year but in 3 months they grew back. Pt hasn't done anything with them since then. Pt had four seizures last month; currently following with Dr. Zimmer Pt still having appointments with pulm to determine long-term plan for lungs. Aisha Maldonado [address] [place] [address], [phone], [facility] 11/22/2011 13:30:16 02/08/2012 text/html Pt comes in [facility] for f/u hospitalization from [facility]; she was admitted from 01/22/12-01/27/12 for an episode of shakiness, vomiting, and shortness of breath. The neurologist felt that pt had had a seizure in her sleep due to an elevation of CPK on admission that was improving by time of discharge. 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 whether she had a Hep B infection in the past. The lamictal was stopped and keppra was started; pt hasn't had f/u with Dr. Zimmer yet. Pt also was treated for exacerbation of asthma; she has f/u with Dr. Rees on 02/28/12. Pt states that her breathing is currently okay. Pt hasn't had any seizures since being in the hospital. Pt also here for f/u pain management. Pt states that she was previously on MS Contin as well as oxycodone for her chronic back pain and muscle pain; she was quite stable on that. However, there was concern about sedation on admission to the hospital and medications were held while she was there. Pt states that the lower dose of oxycodone wasn't helping and she filled the script for oxycodone given to her by the hospital without realizing it because she sent her daughter to the pharmacy wtih a stack of scripts; she states that she flushed it. Pt has been off of medication since 02/05/12 (she had some in her weekly medication container that she used when she got home so wasn't out immediately). Daughter brought all of the medications to the hospital; pt states they put them in a plastic bag, but she didn't get all of her belongings back. She states she is also missing a blue toiletries bag as well. Pt's daughter states that mother is very 'out of it' for at least 24 hours after a seizure; she is somnolent for quite some time afterwards. Aisha Maldonado [address] [place], [phone], [facility] 02/08/2012 17:29:11 05/29/2012 text/html Pt [facility] in [facility] wart [facility] on R foot. Pt states that she has tried compound W freeze; that seemed to spread things around. Pt states that she is interested in some kind of medication for anxiety and her ADHD that is not a controlled substance, as she has had addiction issues in the past that she is getting treatment for. She is starting class on and is interested in being on something to help with focus for that. She also is anxious but wants to avoid medication that may cause her to become addicted. Aisha Maldonado [address] [place], [phone], [facility] 05/29/2012 15:31:46 08/08/2012 text/html Pt comes in [facility] for removal of warts R foot; pt had them removed 2 years ago but they recurred. They are painful and have been growing rapidly so she would like them removed. Aisha Maldonado [address] [place], [phone], [facility] 08/08/2012 11:42:22 OBGyn Episode No OBEpisode recorded.
== END 2024-10-16 12:58 | disposition home or self-care (01) ==
PROVIDERS: Physician Assistant Medical; Emergency Provider Emergency Medicine; PCP Internal Medicine
DX: J45.901 Unspecified asthma with (acute) exacerbation (principal); J44.9 Chronic obstructive pulmonary disease, unspecified; R06.02 Shortness of breath; E11.9 Type 2 diabetes mellitus without complications; Z03.818 Encounter for observation for suspected exposure to other biological agents ruled out; Z87.891 Personal history of nicotine dependence; Z79.899 Other long term (current) drug therapy; Z99.81 Dependence on supplemental oxygen
CPT/HCPCS: 0241U; 71046; 80053; 83735; 85025; 94640; 99284; 99285

== ENCOUNTER → 2024-10-16 09:50 | Outpatient (BNV) | payer BC, MEDICARE, SELFPAY | PROVIDERS: Emergency Provider Emergency Medicine; PCP Internal Medicine; Visit Provider Radiology Diagnostic Radiology | DX: J98.11 Atelectasis (principal) | CPT/HCPCS: 71046 ==

== ENCOUNTER 2025-02-03 18:03 | Emergency (ER) | payer BC, MEDICARE, SELFPAY ==
--- NOTE | ~2025-02-03 | XR_ITS ---
CLINICAL HISTORY: SOB Two views of the chest. Comparison 10/16/2024. Findings: Heart size is normal. No consolidation or pleural effusion is seen. There is mild scarring bilaterally. Impression: No consolidation is identified. This document has been electronically signed by: Noah Strange MD on 02/03/2025 18:58:48
--- NOTE | ~2025-02-03 | XR_ITS ---
CLINICAL HISTORY: pain, injury Four views right wrist. Findings: No acute fractures are seen. There is no dislocation. There is 1st carpometacarpal DJD. Impression: No acute fractures. This document has been electronically signed by: Noah Strange MD on 02/03/2025 18:57:09
[2025-02-03 18:14] VITALS: BP 151/87; PULSE 88; RESP 18; TEMP 36.3; O2SAT 96; BMI 28.3
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
--- NOTE | 2025-02-03 18:14 | ECG_ITS ---
Test Reason : SOB Blood Pressure : */* mmHG Vent. Rate : 92 BPM Atrial Rate : 92 BPM P-R Int : 150 ms QRS Dur : 98 ms QT Int : 392 ms P-R-T Axes : 39 42 68 degrees QTcB Int : 484 ms Normal sinus rhythm Prolonged QT Abnormal ECG When compared with ECG of 28-Sep-2024 13:31, No significant change was found Referred By: Sonya Rajan Electronically Signed By: Chino Perez
[2025-02-03 18:48] LABS: MANUAL DIFF FLAG NO
[2025-02-03 18:49] LABS: Basophils Absolute Auto 0.1 X10*3/uL (0.0-0.2); Basophils Percent Auto 0.8 % (0-2); Eosinophils Absolute Auto 0.1 X10*3/uL (0.0-0.4); Eosinophils Percent Auto 1.3 % (0-4); Hematocrit 41.6 % (37.0-47.0); Hemoglobin 14.9 g/dl (12.0-16.0); Imm Gran Abs Auto 0.03 X10*3/uL (0.00-0.03); Imm Gran Pct Auto 0.4 % (0.0-0.4); Lymphocytes Absolute Auto 2.5 X10*3/uL (1.2-4.9); Lymphocytes Percent Auto 29.6 % (20-40); Mean Corpuscular HGB Conc 35.8 g/dl (31.0-35.0); Mean Corpuscular Hemoglobin 34.9 pg (27.0-33.0); Mean Corpuscular Volume 97.4 fL (80.0-98.0); Mean Platelet Volume 9.4 fL (9.4-12.3); Monocytes Absolute Auto 0.5 X10*3/uL (0.1-1.2); Monocytes Percent Auto 5.7 % (2-11); Neutrophils Absolute Auto 5.3 x10*3/uL (2.0-8.3); Neutrophils Percent Auto 62.2 % (45-73); Platelet Count 297 X10*3/uL (160-400); Red Blood Count 4.27 X10*6/uL (4.20-5.50); Red Cell Distribution Width 13.4 % (11.0-16.0); White Blood Count 8.5 X10*3/uL (4.8-10.8)
[2025-02-03 19:06] LABS: Alanine Aminotransferase 52 U/L (0-31); Albumin Level 4.1 g/dL (3.5-5.0); Alkaline Phosphatase 96 U/L (39-117); Anion Gap 12 (12-20); Aspartate Amino Transferase 59 U/L (5-31); Bilirubin Total 0.4 mg/dL (0.0-1.0); Blood Urea Nitrogen 9 mg/dL (9-16); Carbon Dioxide 25 mmol/L (22-29); Chloride 109 mmol/L (96-108); Creatinine Clr Calc Pharmacy 57.3; Estimated Glomerular Filt Rate 58; Glucose Random 123 mg/dL (60-115); Potassium 3.4 mmol/L (3.3-5.1); Sodium 143 mmol/L (135-145); Total Protein 7.4 g/dL (6.5-8.0)
[2025-02-03 19:14] LABS: Troponin-I High Sensitivity < 2.7 ng/L (<3.5-17.0)
[2025-02-03 19:30] LABS: Influenza A PCR NEGATIVE (Negative); Influenza B PCR NEGATIVE (Negative); Resp Syncy Virus RNA Qual PCR NEGATIVE (Negative); SARS COV2 PCR INHOUSE NEGATIVE (Negative)
[2025-02-03] MEDS: Albuterol Sulfate 7.5 MG, Albuterol/Iprat 2.5/0.5MG 3 ML 3 ML INHALE (19:42)
[2025-02-03 19:58] VITALS: PULSE 104; RESP 22; O2SAT 94
[2025-02-03 20:22] VITALS: BP 122/69; PULSE 100; RESP 20; TEMP 36.8; O2SAT 95
--- NOTE | 2025-02-03 20:58 | PC.NURSE ---
Patient given discharge instructions and left prior to receiving dexamethasone dose.
[2025-02-03 20:59] VITALS: BP 122/69; PULSE 95; RESP 20; TEMP 36.8; O2SAT 95
== END 2025-02-03 21:00 | disposition home or self-care (01) ==
PROVIDERS: Physician Assistant Medical; Emergency Provider Emergency Medicine; PCP Internal Medicine
DX: J44.1 Chronic obstructive pulmonary disease with (acute) exacerbation (principal); J45.901 Unspecified asthma with (acute) exacerbation; R06.02 Shortness of breath; M25.531 Pain in right wrist; Z03.818 Encounter for observation for suspected exposure to other biological agents ruled out; Z79.899 Other long term (current) drug therapy; Z79.84 Long term (current) use of oral hypoglycemic drugs
CPT/HCPCS: 0241U; 71046; 73110; 80053; 83735; 84484; 85025; 93005; 94640; 99284; 99285

== ENCOUNTER → 2025-02-03 18:14 | Outpatient (BNV) | payer BC, MEDICARE, SELFPAY | PROVIDERS: PCP Internal Medicine; Visit Provider Radiology Diagnostic Radiology | DX: R06.02 Shortness of breath (principal); M25.531 Pain in right wrist | CPT/HCPCS: 71046; 73110 ==

== ENCOUNTER → 2025-02-03 18:14 | Outpatient (BNV) | payer BC, MEDICARE, SELFPAY | PROVIDERS: Emergency Provider Emergency Medicine; PCP Internal Medicine; Visit Provider Internal Medicine Cardiovascular Disease | DX: R94.31 Abnormal electrocardiogram [ECG] [EKG] (principal); R06.02 Shortness of breath | CPT/HCPCS: 93010 ==

== ENCOUNTER 2025-02-06 11:33 | Inpatient (IN) | payer BC, MEDICARE, SELFPAY ==
[2025-02-06] VITALS (8 sets, daily range): BP systolic 115–157; BP diastolic 65–87; PULSE 65–82; RESP 18–24; TEMP 36.5–36.7; O2SAT 94–98; BMI 27.9
--- NOTE | ~2025-02-06 | XR_ITS ---
EXAMINATION: XR CHEST CLINICAL INFORMATION: dyspnea x 1 week COMPARISON: February 03, 2025 TECHNIQUE: 2 views of the chest were obtained. FINDINGS: No consolidation, pleural effusion or pneumothorax. Linear opacity right middle lung lobe. No hyperinflation. Cardiomediastinal silhouette size is normal. Osseous structures are intact. Patient's large body habitus/obesity. XR/XR chest 2V IMPRESSION: Subsegmental atelectasis versus scarring, right middle lung lobe. Electronically signed by: Cleveland Irving MD 02/06/2025 12:00 PM EDT
--- NOTE | 2025-02-06 11:42 | ED_ITS ---
HPI - General Adult General Chief complaint: Dyspnea Stated complaint: SOB - asthma Time Seen by Provider: 02/06/25 12:08 Source: patient and old records reviewed Mode of arrival: ambulatory Limitations: no limitations History of Present Illness ED Provider: SAMMY MAURER narrative: 54 yo female with PMH of asthma, COPD overlap syndrome not on home O2 still smokes THC has been intubated previously, anxiety, DM here with c/o asthma and possible allergies starting this week with green sputum production she was seen her on Monday and started on prednisone. She notes she is not getting better despite nebs. She feels worse and today couldn't take it. No fevers and no CP. MD complaint: asthma/COPD Onset (ago): week(s) (1) Location: chest Radiation: non-radiation Severity: moderate Pain Consistency: constant Relieving factors: none Exacerbating factors: movement Associated symptoms: cough and shortness of breath Treatments prior to arrival: other Related Data Home Medications ?Medication ?Instructions ?Recorded ?Confirmed dextroamphetamine-amphetamine 20 10 mg PO BID@0700,1400 07/26/20 05/30/24 mg tablet levalbuterol tartrate 45 2 puff inhalation Q4H PRN Wheezing 04/20/22 05/30/24 mcg/actuation aerosol inhaler (Xopenex HFA) clonidine HCl 0.1 mg tablet 0.1 mg PO BEDTIME 03/20/23 05/30/24 dextroamphetamine-amphetamine ER 1 cap PO DAILY@0700 03/20/23 05/30/24 20 mg 24hr capsule,extend release diphenhydramine HCl 25 mg capsule 25 mg PO BEDTIME PRN Sleep 03/05/24 05/30/24 (Benadryl) ipratropium 0.5 mg-albuterol 3 mg 3 ml inhalation Q4H PRN shortness 03/05/24 05/30/24 (2.5 mg base)/3 mL nebulization of breath or wheezing soln tezepelumab-ekko 210 mg/1.91 mL 210 mg subcut Q4W 03/05/24 05/30/24 (110 mg/mL) subcutaneous pen injector (Tezspire) calcium carbonate 500 mg PO DAILY 05/30/24 05/30/24 lisinopril 20 mg tablet 20 mg PO DAILY 05/30/24 05/30/24 metformin 500 mg tablet 500 mg PO BID 05/30/24 05/30/24 multivitamin 1 tab PO DAILY 05/30/24 05/30/24 potassium citrate 99 mg capsule 99 mg PO DAILY 05/30/24 05/30/24 tirzepatide 5 mg/0.5 mL 5 mg subcut TH 05/30/24 05/30/24 subcutaneous pen injector (Fernando) Previous Rx's ?Medication ?Instructions ?Recorded blood sugar diagnostic (Accu-Chek #100 ea 10/11/20 Guide test strips) blood-glucose meter (Accu-Chek #1 ea 10/11/20 Guide Glucose Meter) lancets (Accu-Chek Multiclix #100 ea 10/11/20 Lancet) doxycycline hyclate 100 mg capsule 100 mg PO BID #14 caps 06/03/24 lorazepam 0.5 mg tablet 0.5 mg PO BEDTIME PRN Insomnia #10 06/03/24 tabs prednisone 10 mg tablet See Rx Instructions .Route 06/03/24 .COMPLEX #45 tabs prednisone 20 mg tablet 40 mg (2 x 20 mg) PO DAILY 5 days 09/28/24 #10 tabs doxycycline monohydrate 100 mg 100 mg PO BID 5 days #10 caps 10/16/24 capsule prednisone 50 mg tablet 50 mg PO DAILY 5 days #5 tabs 10/16/24 prednisone 20 mg tablet 40 mg (2 x 20 mg) PO DAILY 5 days 02/03/25 #10 tabs Allergies Allergy/AdvReac Type Severity Reaction Status Date / Time hydromorphone [From DILAUDID] Allergy Severe SEIZURES Verified 02/06/25 11:44 oxycodone [OXYCODONE] Allergy Severe SEIZURES Verified 02/06/25 11:44 vancomycin Allergy Severe Rash Verified 02/06/25 11:44 gabapentin [GABAPENTIN] Allergy Intermediate MUSCLE ACHE Verified 02/06/25 11:44 albuterol Allergy Mild Trouble Verified 02/06/25 11:44 breathing;MDI use only bupropion [From WELLBUTRIN] Allergy Unknown SEIZURES Verified 02/06/25 11:44 phenytoin [Dilantin] Allergy Unknown Unknown Verified 02/06/25 11:44 azithromycin Allergy Hives Verified 02/06/25 11:44 Review of Systems 2 Review of Systems: Constitutional : No Fever, No Chills ENT/Mouth : No Hoarseness, No sore throat, No Rhinorrhea Eyes: No Redness, No Discharge, No Vision Changes Cardiovascular : No Chest Pain, positive SOB, positive Dyspnea on Exertion, No Edema Respiratory : positive Cough, pos Sputum, positive Wheezing, Gastrointestinal : No Nausea, No Vomiting, No Diarrhea, No abdominal Pain Genitourinary : No Dysuria, No Hematuria Musculoskeletal : No joint pain, No Myalgias Skin : No rash Neuro : No Weakness, No Numbness, No Headache Psych : No anxiety, depression Heme/Lymph: No Bruising, No Bleeding Endocrine : No Polyuria, No Polydipsia All other systems reviewed and are negative PMFSH Past Medical History Attestation statement: The following information was validated with the patient. Source: old records reviewed Medical History DMII (diabetes mellitus, type 2) Bilateral knee pain Bilateral foot pain Colon cancer screening Annual physical exam Acute pneumonia Obese Anxiety COPD (chronic obstructive pulmonary disease) Sleep apnea History of suicide attempt Asthma-COPD overlap syndrome HTN (hypertension) ADHD Epilepsy Fibromyalgia Tracheomalacia Cocaine abuse Alcohol abuse Asthma Surgical History Previous section History of cholecystectomy Family History Family History Father No problems noted. 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: Yes Do you presently have visiting nurse or other home services: No Alcohol intake: former Comment: pt sleeping Patient Tobacco Use Status: Former Tobacco user Tobacco use type: Cigarette Cigarettes Per Day: 25 Years Smoked: 20 Smoked in Last 30 Days: Yes e-Cigarette/Vaping Use: Currently Using Second Hand Smoke Exposure: No Substance Use Type: Marijuana Substance Use Frequency: Weekly Advance Directives: Yes Advance Directives on File: Yes Advance Directives Date on File: 11/05/20 service: No Current occupational status: disabled Cognitive needs: Yes (Pt would like a cane ) Hearing needs: Yes (?hearing loss mostly from right ear.) Vision needs: Yes (Pt was seen 6 months and exam was good just need readig glasses.) Physical Exam ED Vital Signs: Vital Signs - 24 hr 02/06/25 11:42 02/06/25 12:01 Temperature 97.8 F Pulse Rate 82 80 Respiratory Rate 24 H 24 H Blood Pressure 122/86 126/87 Pulse Oximetry 94 98 Oxygen Delivery Method Room Air Room Air BMI result Body Mass Index 27.9 Appearance: Alert. Oriented X3. MIld acute distress. Eyes: Pupils equal, round and reactive to light. ENT: Pharynx normal. Neck: Normal inspection. Neck supple. CVS: Normal heart rate and rhythm. Pulses normal. Respiratory: Mild respiratory distress - tachypnea and retractions. Breath sounds diffuse end exp wheezes throughout Abdomen: Soft and nontender. Skin: Skin warm and dry. Normal skin color. Normal skin turgor. Extremities: No lower extremity edema. No calf ttp Neuro: Oriented X 3. No motor deficit. No sensory deficit. CN2-12 intact Course Course Course Narrative: This is a rapid medical exam performed by Rachel Lakhani NP: Additional HPI, ROS, PE not included below will be deferred to primary provider. Patient is a 54-year-old female with history of asthma presenting with one week of shortness of breath and wheezing. Seen here Tue and prescribed prednisone, today feeling worse again, coughing up dark green sputum. Plan: labs, viral panel, CXR Medications Administered Generic Name Dose Route Start Last Admin Trade Name Freq PRN Reason Stop Dose Admin Lactated Ringer's 1,000 mls @ 999 mls/hr 02/06/25 13:00 02/06/25 13:08 Lr IV 02/06/25 14:00 999 mls/hr .Q1H1M BEATRIZ Administration Discontinued Medications Generic Name Dose Route Start Last Admin Trade Name Freq PRN Reason Stop Dose Admin Ceftriaxone Sodium 1 gm 02/06/25 12:08 02/06/25 12:32 Ceftriaxone Sodium 1 Gm Vial IVPUSH 02/06/25 12:09 1 gm ONCE ONE Administration Magnesium Sulfate 2 gm in 50 mls @ 150 mls/hr 02/06/25 12:08 02/06/25 13:00 Magnesium Sulfate/H2o IV 02/06/25 12:27 Infused ONCE ONE Infusion Methylprednisolone Sodium Succinate 60 mg 02/06/25 12:08 02/06/25 12:32 Methylprednisolone Sod Succ 125 Mg/2 Ml Vial IVPUSH 02/06/25 12:09 60 mg ONCE ONE Administration Medical Decision Making Medical Decision Making [facility] Narrative: 54 yo female with PMH of asthma, COPD overlap syndrome not on home O2 still smokes THC has been intubated previously, anxiety, DM here with c/o URI symptoms persistent wheezing despite nebs and prednisone. At this time will obtain basic labs, viral panel, start on IV steroids, nebs, magnesium and anticipate admission for failed outpatient management. She has hx of frequent visits and admits for the same Differential Diagnosis Differential Diagnoses: The differential diagnosis associated with the presentation includes asthma, COPD, bronchitis Admission/Observation Consideration of admission/observation: Escalation of care including admission/observation considered admit for K and resp improvement Lab Data [facility] Lab Attestation statement: I reviewed the patient's lab results. 02/06/25 12:10 02/06/25 12:10 Labs: Lab Results 02/06/25 02/06/25 02/06/25 Range/Units 12:10 12:26 12:37 WBC 11.9 H (4.8-10.8) X10*3/uL RBC 4.27 (4.20-5.50) X10*6/uL Hgb 14.7 (12.0-16.0) g/dl Hct 42.5 (37.0-47.0) % MCV 99.5 H (80.0-98.0) fL MCH 34.4 H (27.0-33.0) pg MCHC 34.6 (31.0-35.0) g/dl RDW 13.8 (11.0-16.0) % Plt Count 310 (160-400) X10*3/uL MPV 9.4 (9.4-12.3) fL Immature Gran % (Auto) 0.5 H (0.0-0.4) % Neut % (Auto) 68.6 (45-73) % Lymph % (Auto) 24.2 (20-40) % Quay % (Auto) 5.7 (2-11) % Eos % (Auto) 0.3 (0-4) % Baso % (Auto) 0.7 (0-2) % Lymph # (Auto) 2.9 (1.2-4.9) X10*3/uL Quay # (Auto) 0.7 (0.1-1.2) X10*3/uL Eos # (Auto) 0.0 (0.0-0.4) X10*3/uL Baso # (Auto) 0.1 (0.0-0.2) X10*3/uL Abs Immat Gran (auto) 0.06 H (0.00-0.03) X10*3/uL Absolute Neuts (auto) 8.1 (2.0-8.3) x10*3/uL Absolute Nucleated RBC 0.000 (0.0-0.012) X10*3/uL Nucleated RBC % (auto) 0.0 (0.0-0.2) /100WBC VBG pH 7.36 (7.32-7.43) VBG pCO2 37 mmHg VBG pO2 49 mmHg VBG HCO3 21 L (22-26) mmol/L VBG O2 Saturation 75.0 % VBG Base Excess -2.8 mmol/L Sodium 143 (135-145) mmol/L Potassium 2.8 L* (3.3-5.1) mmol/L Chloride 109 H (96-108) mmol/L Carbon Dioxide 21 L (22-29) mmol/L Anion Gap 16 (12-20) BUN 15 (9-16) mg/dL Creatinine 0.74 (0.5-1.4) mg/dL Estim Creat Clear Calc 76.0 Estimated GFR > 60 Random Glucose 154 H (60-115) mg/dL Lactic Acid 2.3 H* (0.5-2.0) mmol/L Calcium 8.8 (8.4-10.2) mg/dL Total Bilirubin 0.4 (0.0-1.0) mg/dL AST 64 H (5-31) U/L ALT 46 H (0-31) U/L Alkaline Phosphatase 90 (39-117) U/L Total Protein 7.3 (6.5-8.0) g/dL Albumin 4.2 (3.5-5.0) g/dL Influenza Type A (PCR) NEGATIVE (Negative) Influenza Type B (PCR) NEGATIVE (Negative) RSV RNA Qual (PCR) NEGATIVE (Negative) SARS-CoV-2 RNA (RT-PCR) NEGATIVE (Negative) Independent Interpretation I performed an independent interpretation of an: EKG and Plain X-Ray (normal ) Interpretation: Rate: Rhythm: [place]: Normal P waves. Normal INNA. Normal QRS complex. ST T wave : qTC: prior studies: The study has been interpreted contemporaneously by me. . Radiology Impression Discussion of test interpretation with radiology: I have reviewed the radiologist's reading. External Record Review External record reviewed: Inpatient record and Outpatient record Critical Care Time Critical Care Time Critical Care Time: Yes Total Critical Care Time: 45 Attestation: Time is exclusive of separately billable procedures. Time includes: direct patient care, patient reassessment, coordination of patient care, interpretation of data (laboratory data, pulse oximetry, venous blood gases and chest xrays), review of patient's medical records, medical consultation and documentation of patient care. Procedures excluded from critical care time: electrocardiography. Discharge Plan Discharge Clinical Impression: Acute hypokalemia, Acute exacerbation of chronic obstructive pulmonary disease, Acidosis, lactic Patient Disposition: Admitted As Inpatient Prescriptions: No Action dextroamphetamine-amphetamine 20 mg tablet 10 mg PO BID@0700,1400 (DME) blood-glucose meter [Accu-Chek Guide Glucose Meter] [facility] [place] See Rx Instructions .ROUTE .MEDSUPPLY Qty: 1 0RF Rx Instructions: As directed (DME) Accu-Chek Guide test strips Strip See Rx Instructions .ROUTE .MEDSUPPLY Qty: 100 0RF Rx Instructions: As directed (DME) lancets [Accu-Chek Multiclix Lancet] [facility] [place] See Rx Instructions .ROUTE .MEDSUPPLY Qty: 100 0RF Rx Instructions: As directed levalbuterol tartrate [Xopenex HFA] 45 mcg/actuation HFA aerosol inhaler 2 puff inhalation Q4H PRN (Reason: Wheezing) Mounjaro 5 mg/0.5 mL pen injector 5 mg subcut TH lisinopril 20 mg tablet 20 mg PO DAILY multivitamin Tablet 1 tab PO DAILY metformin 500 mg Tablet 500 mg PO BID calcium carbonate 500 mg calcium (1,250 mg) Tablet 500 mg PO DAILY potassium citrate 99 mg Capsule 99 mg PO DAILY lorazepam 0.5 mg Tablet 0.5 mg PO BEDTIME PRN (Reason: Insomnia) Qty: 10 0RF doxycycline hyclate 100 mg capsule 100 mg PO BID Qty: 14 0RF prednisone 10 mg tablet See Rx Instructions .Route .COMPLEX Qty: 45 0RF Rx Instructions: 10 mg orally; 5 tabs p.o. daily x3 days; 4 tabs p.o. daily x3 days; 3 tabs daily x3 days; 2 tabs daily x3 days; 1 tab daily x3 days clonidine HCl 0.1 mg tablet 0.1 mg PO BEDTIME dextroamphetamine-amphetamine 20 mg capsule,extended release 24hr 1 cap PO DAILY@0700 Tezspire 210 mg/1.91 mL (110 mg/mL) pen injector 210 mg subcut Q4W Rx Instructions: on the of each month ipratropium-albuterol 0.5 mg-3 mg(2.5 mg base)/3 mL solution for nebulization 3 ml inhalation Q4H PRN (Reason: shortness of breath or wheezing) diphenhydramine HCl [Benadryl] 25 mg Capsule 25 mg PO BEDTIME PRN (Reason: Sleep) prednisone 20 mg tablet 40 mg PO DAILY 5 Days Qty: 10 0RF doxycycline monohydrate 100 mg capsule 100 mg PO BID 5 Days Qty: 10 0RF prednisone 50 mg tablet 50 mg PO DAILY 5 Days Qty: 5 0RF prednisone 20 mg tablet 40 mg PO DAILY 5 Days Qty: 10 0RF Print Language: [place]i
[2025-02-06 12:18] LABS: MANUAL DIFF FLAG NO
[2025-02-06 12:19] LABS: Hematocrit 42.5 % (37.0-47.0); Hemoglobin 14.7 g/dl (12.0-16.0); Imm Gran Pct Auto 0.5 % (0.0-0.4); Lymphocytes Percent Auto 24.2 % (20-40); Mean Corpuscular HGB Conc 34.6 g/dl (31.0-35.0); Mean Corpuscular Hemoglobin 34.4 pg (27.0-33.0); Mean Corpuscular Volume 99.5 fL (80.0-98.0); Mean Platelet Volume 9.4 fL (9.4-12.3); Neutrophils Percent Auto 68.6 % (45-73); Platelet Count 310 X10*3/uL (160-400); Red Blood Count 4.27 X10*6/uL (4.20-5.50); Red Cell Distribution Width 13.8 % (11.0-16.0); White Blood Count 11.9 X10*3/uL (4.8-10.8)
[2025-02-06 12:20] LABS: Basophils Absolute Auto 0.1 X10*3/uL (0.0-0.2); Basophils Percent Auto 0.7 % (0-2); Eosinophils Percent Auto 0.3 % (0-4); Imm Gran Abs Auto 0.06 X10*3/uL (0.00-0.03); Lymphocytes Absolute Auto 2.9 X10*3/uL (1.2-4.9); Monocytes Absolute Auto 0.7 X10*3/uL (0.1-1.2); Monocytes Percent Auto 5.7 % (2-11); Neutrophils Absolute Auto 8.1 x10*3/uL (2.0-8.3)
--- NOTE | 2025-02-06 12:30 | PC.NURSE ---
Patient is a 54-year-old female with a PMH significant for?HTN, HLD, COPD not on home O2, [id number]-fysgrzipz type 2 diabetes, TEO not on CPAP, fibromyalgia, hx of MRSA infection, alcohol use disorder, 20+ pack year smoking hx now vaping THC, anxiety, and depression who presents to the ED with?worsening SOB, difficulty breathing, and wheezing. Was evaluated on Monday for the same and appears to have failed out-patient therapy/management.. Alert and oriented. Lungs with diffuse exp/insp wheezes. Respirations sl labored on arrival with use of abdominal muscles which improved with IV magnesium. Abdomen large soft, distended non-tender with positive bowel wounds. Positive pedal pulses with no edema.
[2025-02-06] MEDS: Magnesium Sulfate/H2O 2 GM/50 ML PIGGYBACK IV (12:32)
[2025-02-06] MEDS: cefTRIAXone sodium 1 GM VIAL IVPUSH (12:32)
[2025-02-06] MEDS: methylPREDNISolone Sod Succ 125 MG/2 ML VIAL 60 MG IVPUSH (12:32)
--- OUTSIDE RECORDS SUMMARY | 2025-02-06 12:33 | XMS_ITS | Data Portability ---
Author Organization [facility], [facility] Address [address] [place] [address] Care Team Providers Care Voice Systems Engineer Name Role Phone [facility] JOSEPH SOSA OTHER Assessment No assessment recorded. Plan of Treatment Reminders Order Date Submit Date Provider Last Modified By Organization Details Last Modified Time Details Appointments None recorded. Lab comprehensi ve metabolic panel 2011 012 [facility], [address] [place] [address], [address], 3 03:07:17 drugs of abuse screen 8 - Drug Name/Date and Time last dose:OXYCOD ONE 01/29/12 MS CONTIN 01/29/12 AMPHETAMINE SALT COMBO 01/29/122011 012 [facility], [address] [place] [address], [address], 3 03:09:21 opiates, expanded by GC/ms urine - Drug name/Date and Time last dose: 2011 012 [facility], [address] [place] [address], [address], 3 03:09:21 drugs of abuse screen 8 - Drug Name/Date and Time of Last Dose: MS Contin, Percocet and Adderall 11/20/112011 012 [facility], [address] [place] [address], [address], 3 05:57:56 opiates, expanded by GC/ms urine - MS Contin, Percocet and Adderall 11/20/112011 012 [facility], [address] [place], [address], 3 05:57:56 Referral None recorded. Procedures None recorded. Surgeries None recorded. Imaging None recorded. Medication Orders antipyrine- benzocaine 5.4 %-1.4 % ear drops 2011 012 [facility][id number], [address] [place], [place], [id number], 3 03:53:21 ropinirole 1 mg tablet 2011 012 [facility] #[id number], [address] [place], [place], [id number], 3 03:46:43 MS Contin 15 mg tablet,exte nded release 2011 012 [facility] #[id number], [facility] [place], [place], [id number], 4 02:49:21 oxycodone 10 mg tablet 2011 012 [facility] #[id number], [address] [place], [place], [id number], 4 02:49:21 Amphetamine Salt Combo 20 mg tablet 2011 012 [facility] #[id number], [address] [place] [address], [id number], 4 02:49:38 Patient TargetsNo targets recorded. Patient Instructions Encounter Date Encounter Id Patient Instructions Last Modified By Organization Details Last Modified Time 09/04/2012 [id number] Discussed quitting smoking.? ? ? DIscussed- using [...] 8 amphetamine NEG. negati ve Not Available [address], [address], 11/22/2011 17:00:02 11/22/19 12 11/22/2011 drugs of abuse scree n 8 barbiturates NEG. negati ve Not Available [address], [address], 11/22/2011 17:00:02 11/22/19 12 11/22/2011 drugs of abuse scree n 8 benzodiazepi ne NEG. negati ve Not Available [address], [address], 11/22/2011 17:00:02 11/22/19 12 11/22/2011 drugs of abuse scree n 8 cocaine NEG. negati ve Not Available [address], [address], 11/22/2011 17:00:02 11/22/19 12 11/22/2011 drugs of abuse scree n 8 opiates NEG. negati ve gcop= [facility] by [facility]/MS . Not Available [address], [address], 11/22/2011 17:00:02 11/22/19 12 11/22/2011 drugs of abuse scree n 8 THC-cannabin oids NEG. negati ve Not Available [address], [address], 11/22/2011 17:00:02 11/22/19 12 11/22/2011 drugs of abuse scree n 8 phencylidine NEG. negati ve Not Available [address], [address], 11/22/2011 17:00:02 11/22/19 12 11/22/2011 drugs of [...] NG/mL metha done: 300 NG/mL Not Available [address], [address], 11/22/2011 17:00:02 11/22/19 12 11/24/2011 opiat e confi rm GC morphine NONE DETECT ED NG/mL normal Not Available [facility] [address], [address], 11/24/2011 21:44:59 11/22/19 12 11/24/2011 opiat e confi rm GC codeine NONE DETECT ED NG/mL normal Not Available [facility] [address], [address], 11/24/2011 21:44:59 11/22/19 12 11/24/2011 opiat e confi rm GC hydrocodone NONE DETECT ED NG/mL normal Not Available [facility] [address], [address], 11/24/2011 21:44:59 11/22/19 12 11/24/2011 opiat e confi rm GC hydromorphon e NONE DETECT ED NG/mL normal Not Available [facility] [address], [address], 11/24/2011 21:44:59 11/22/19 12 11/24/2011 opiat e confi rm GC oxycodone NONE DETECT ED NG/mL normal Not Available [facility] [address], [place], [address], 11/24/2011 21:44:59 11/22/19 12 11/24/2011 opiat e confi rm GC Unknown Analyte this test was perfo rmed by GC/MS , 100 NG/mL cutof f. Not Available [facility] [address], [place], [address], 11/24/2011 21:44:59 02/08/20 12 02/09/2012 drugs of abuse scree n 8 amphetamine NEGATI VE negati ve Not Available [address], [address], 02/09/2012 12:30:44 02/08/20 12 02/09/2012 drugs of abuse scree n 8 barbiturates NEGATI VE negati ve Not Available [address], [address], 02/09/2012 12:30:44 02/08/20 12 02/09/2012 drugs of abuse scree n 8 benzodiazepi ne NEGATI VE negati ve Not Available [address], [address], 02/09/2012 12:30:44 02/08/20 12 02/09/2012 drugs of abuse scree n 8 cocaine NEGATI VE negati ve Not Available [address], [address], 02/09/2012 12:30:44 02/08/20 12 02/09/2012 drugs of abuse scree n 8 opiates * POSITI VE * negati ve gcop= [facility] by GC/MS . Not Available [address], [address], 02/09/2012 12:30:44 02/08/20 12 02/09/2012 drugs of abuse scree n 8 THC-cannabin oids NEGATI VE negati ve Not Available [address], [address], 02/09/2012 12:30:44 02/08/20 12 02/09/2012 drugs of abuse scree n 8 phencylidine NEGATI VE negati ve Not Available [address], [address], 02/09/2012 12:30:44 02/08/20 12 02/09/2012 drugs of [...] NG/mL metha done: 300 NG/mL Not Available [address], [address], 02/09/2012 12:30:44 02/08/20 12 02/14/2012 opiat e confi rm GC morphine 2539 NG/mL high Not Available [facility] [address], [address], 02/14/2012 09:25:57 02/08/20 12 02/14/2012 opiat e confi rm GC codeine NONE DETECT ED NG/mL normal Not Available [facility] [address], [address], 02/14/2012 09:25:57 02/08/20 12 02/14/2012 opiat e confi rm GC hydrocodone NONE DETECT ED NG/mL normal Not Available [facility] [address], [address], 02/14/2012 09:25:57 02/08/20 12 02/14/2012 opiat e confi rm GC hydromorphon e NONE DETECT ED NG/mL normal Not Available [facility] [address], [address], 02/14/2012 09:25:57 02/08/20 12 02/14/2012 opiat e confi rm GC oxycodone NONE DETECT ED NG/mL normal Not Available [facility] [address], [place], [address], 02/14/2012 09:25:57 02/08/20 12 02/14/2012 opiat e confi rm GC Unknown Analyte this test was perfo rmed by GC/MS , 100 NG/mL cutof f. Not Available [facility] [address], [place], [address], 02/14/2012 09:25:57 09/24/19 13 09/24/2012 CBC w/dif f WBC 10.9 K/uL 3.4-11 .2 Not Available [facility] [address] [place] [address], [address], 09/24/2012 11:39:10 09/24/19 13 09/24/2012 CBC w/dif f RBC 4.44 M/uL 3.80-4 .80 Not Available [facility] [address] [place] [address], [address], 09/24/2012 11:39:10 09/24/19 13 09/24/2012 CBC w/dif f hemoglobin 13.7 g/dL 12.0-1 5.0 Not Available [facility] [address] [place] [address], [address], 09/24/2012 11:39:10 09/24/19 13 09/24/2012 CBC w/dif f hematocrit 40.1 % 36.0-4 6.0 Not Available [facility]) [address] [place] [address], [address], 09/24/2012 11:39:10 09/24/19 13 09/24/2012 CBC w/dif f MCV 90.3 fL 79.0-9 8.0 Not Available [facility]) [address] [place] [address], [address], 09/24/2012 11:39:10 09/24/19 13 09/24/2012 CBC w/dif f MCH 30.9 pg 27.0-3 4.8 Not Available [facility]) [address] [place] [address], [address], 09/24/2012 11:39:10 09/24/19 13 09/24/2012 CBC w/dif f MCHC 34.2 g/dL 31.5-3 6.0 Not Available [facility]) [address] [place] [address], [address], 09/24/2012 11:39:10 09/24/19 13 09/24/2012 CBC w/dif f RDW 13.6 % 10.8-1 4.6 Not Available [facility] [address] [place] [address], [address], 09/24/2012 11:39:10 09/24/19 13 09/24/2012 CBC w/dif f MPV 9.8 fL 7.2-10 .5 Not Available [facility] [address] [place] [address], [address], 09/24/2012 11:39:10 09/24/19 13 09/24/2012 CBC w/dif f platelet count 345 K/uL 130-40 0 Not Available [facility] [address] [place] [address], [address], 09/24/2012 11:39:10 09/24/19 13 09/24/2012 CBC w/dif f neutrophils 71.2 % 45.3-7 7.7 Not Available [facility] [address] [place] [address], [address], 09/24/2012 11:39:10 09/24/19 13 09/24/2012 CBC w/dif f lymphocytes 20.8 % 12.3-3 9.7 Not Available [facility] [address] [place] [address], [address], 09/24/2012 11:39:10 09/24/19 13 09/24/2012 CBC w/dif f monocytes 6.5 % 4.1-12 .8 Not Available [facility] [address] [place] [address], [address], 09/24/2012 11:39:10 09/24/19 13 09/24/2012 CBC w/dif f eosinophils 1.00 % 0.00-7 .20 Not Available [facility]) [address] [place] [address], [address], 09/24/2012 11:39:10 09/24/19 13 09/24/2012 CBC w/dif f basophils 0.20 % 0.00-2 .80 Not Available [facility]) [address] [place] [address], [address], 09/24/2012 11:39:10 09/24/19 13 09/24/2012 CBC w/dif f absolute neutrophil 7.7 K/uL 1.4-7. 7 Not Available [facility]) [address] [place] [address], [address], 09/24/2012 11:39:10 09/24/19 13 09/24/2012 CBC w/dif f absolute lymphocyte 2.3 K/uL 0.6-3. 2 Not Available [facility]) [address] [place] [address], [address], 09/24/2012 11:39:10 09/24/19 13 09/24/2012 CBC w/dif f absolute monocytes 0.7 K/uL 0.1-0. 6 high Not Available [facility]) [address] [place] [address], [address], 09/24/2012 11:39:10 09/24/19 13 09/24/2012 CBC w/dif f absolute eosinophil 0.11 K/uL 0.01-0 .50 Not Available [facility] [address] [place] [address], [address], 09/24/2012 11:39:10 09/24/19 13 09/24/2012 CBC w/dif f absolute basophils 0.02 K/uL Not Available [facility] [address] [place] [address], [address], 09/24/2012 11:39:10 09/24/19 13 09/24/2012 CBC w/dif f immature granulocyte 0.30 % 0.00-0 .50 Not Available [facility] [address] [place] [address], [address], 09/24/2012 11:39:10 09/24/19 13 09/24/2012 CBC w/dif f absolute immature granulocyte 0.03 K/uL 0.00-0 .03 Not Available [facility]) [address] [place] [address], [address], 09/24/2012 11:39:10 09/24/19 13 09/24/2012 C-matheus ctive prote in (CRP) C-reactive protein 0.4 mg/dL 0.0-0. 5 Not Available [facility] [address] [place] [address], [address], 09/24/2012 12:15:59 09/24/19 13 09/24/2012 compr ehens antonio metab olic panel glucose 78 mg/dL 70-99 Not Available [facility] [address] [place] [address], [address], 09/24/2012 12:16:01 09/24/19 13 09/24/2012 compr ehens antonio metab olic panel BUN 10 mg/dL 6-19 Not Available [facility] [address] [place], [address], 09/24/2012 12:16:01 09/24/19 13 09/24/2012 compr ehens antonio metab olic panel creatinine 0.7 mg/dL 0.5-1. 5 Not Available [facility] [address] [place], [address], 09/24/2012 12:16:09/24/19 13 09/24/2012 compr ehens antonio metab olic panel GFR >60 Not Available [facility] [address] [place] [address], [address], 09/24/2012 12:16:09/24/19 13 09/24/2012 compr ehens antonio metab olic panel sodium 140 mEq/L 133-14 5 Not Available [facility] [address] [place], [address], 09/24/2012 12:16:09/24/19 13 09/24/2012 compr ehens antonio metab olic panel potassium 4.1 mEq/L 3.3-5. 1 Not Available [facility]) [address] [place] [address], [address], 09/24/2012 12:16:09/24/19 13 09/24/2012 compr ehens antonio metab olic panel chloride 101 mEq/L 96-108 Not Available [facility]) [address] [place] [address], [address], 09/24/2012 12:16:09/24/19 13 09/24/2012 compr ehens antonio metab olic panel CO2 27 mEq/L 21-35 Not Available [facility]) [address] [place], [address], 09/24/2012 12:16:09/24/19 13 09/24/2012 compr ehens antonio metab olic panel calcium 9.4 mg/dL 8.4-10 .3 Not Available [facility]) [address] [place] [address], [address], 09/24/2012 12:16:09/24/19 13 09/24/2012 compr ehens antonio metab olic panel total bilirubin 0.6 mg/dL 0.0-1. 5 Not Available [facility]) [address] [place] [address], [address], 09/24/2012 12:16:09/24/19 13 09/24/2012 compr ehens antonio metab olic panel alkaline phosphatase 53 U/L 39-117 Not Available [facility] [address] [place] [address], [address], 09/24/2012 12:16:09/24/19 13 09/24/2012 compr ehens antonio metab olic panel AST (SGOT) 18 U/L 0-37 Not Available [facility] [address] [place] [address], [address], 09/24/2012 12:16:01 09/24/19 13 09/24/2012 compr ehens antonio metab olic panel ALT (SGPT) 19 U/L 0-40 Not Available [facility]) [address] [place] [address], [address], 09/24/2012 12:16:09/24/19 13 09/24/2012 compr ehens antonio metab olic panel total protein 6.5 g/dL 6.5-8. 0 Not Available [facility]) [address] [place] [address], [address], 09/24/2012 12:16:09/24/19 13 09/24/2012 compr ehens antonio metab olic panel albumin 4.2 g/dL 3.9-4. 8 Not Available [facility] [address] [place], [address], 09/24/2012 12:16:01 09/24/19 13 09/24/2012 compr ehens antonio metab olic panel globulin 2.3 gm/dL 1.0-4. 8 Not Available [facility] ([facility] [address] [place], [address], 09/24/2012 12:16:01 09/24/19 13 09/24/2012 compr ehens antonio metab olic panel A/G ratio 1.8 gm/dL 1.0-4. 8 Not Available [facility]) [address] [place] [address], [address], 09/24/2012 12:16:01 09/24/19 13 09/24/2012 compr ehens antonio metab olic panel anion gap 16 mEq/L 10-20 Not Available [facility] [address] [place] [address], [address], 09/24/2012 12:16:01 09/24/19 13 09/24/2012 ESR, weste rgren ESR-westergr en 13 mm/HR 0-25 Not Available [facility] [address] [place] [address], [address], 09/24/2012 13:24:12 09/24/19 13 09/28/2012 strep tococ cus pneum oniae igg Ab (23 serot ypes) serotype 1 (1) 0.3 mcg/m L >8.2 low Not Available [facility] [address] [place] [address], [address], 09/28/2012 14:24:22 09/24/19 13 09/28/2012 strep tococ cus pneum oniae igg Ab (23 serot ypes) serotype 2(2) 0.6 mcg/m L >7.4 low Not Available [facility] [address] [place], [address], 09/28/2012 14:24:22 09/24/19 13 09/28/2012 strep tococ cus pneum oniae igg Ab (23 serot ypes) serotype 3 (3) 2.1 mcg/m L >6.9 low Not Available [facility] [address] [place], [address], 09/28/2012 14:24:22 09/24/19 13 09/28/2012 strep tococ cus pneum oniae igg Ab (23 serot ypes) serotype 4 (4) 0.2 mcg/m L >4.1 low Not Available [facility]) [address] [place] [address], [address], 09/28/2012 14:24:22 09/24/19 13 09/28/2012 strep tococ cus pneum oniae igg Ab (23 serot ypes) serotype 5 (5) 0.9 mcg/m L >28.8 low Not Available [facility]) [address] [place] [address], [address], 09/28/2012 14:24:22 09/24/19 13 09/28/2012 strep tococ cus pneum oniae igg Ab (23 serot ypes) serotype 8 (8) 0.8 mcg/m L >13.3 low Not Available [facility]) [address] [place], [address], 09/28/2012 14:24:22 09/24/19 13 09/28/2012 strep tococ cus pneum oniae igg Ab (23 serot ypes) serotype 9N (9) 0.7 mcg/m L >16.6 low Not Available [facility]) [address] [place] [address], [address], 09/28/2012 14:24:22 09/24/19 13 09/28/2012 strep tococ cus pneum oniae igg Ab (23 serot ypes) serotype 12F (12) 0.3 mcg/m L >4.3 low Not Available [facility]) [address] [place] [address], [address], 09/28/2012 14:24:22 09/24/19 13 09/28/2012 strep tococ cus pneum oniae igg Ab (23 serot ypes) serotype 14 (14) 1.2 mcg/m L >22.9 low Not Available [facility]) [address] [place] [address], [address], 09/28/2012 14:24:22 09/24/19 13 09/28/2012 strep tococ cus pneum oniae igg Ab (23 serot ypes) serotype 17F (17) 2.3 mcg/m L >44.8 low Not Available [facility]) [address] [place] [address], [address], 09/28/2012 14:24:22 09/24/19 13 09/28/2012 strep tococ cus pneum oniae igg Ab (23 serot ypes) serotype 19F (19) 6.7 mcg/m L >16.0 low Not Available [facility]) [address] [place] [address], [address], 09/28/2012 14:24:22 09/24/19 13 09/28/2012 strep tococ cus pneum oniae igg Ab (23 serot ypes) serotype 20 (20) 0.5 mcg/m L >12.1 low Not Available [facility]) [address] [place] [address], [address], 09/28/2012 14:24:22 09/24/19 13 09/28/2012 strep tococ cus pneum oniae igg Ab (23 serot ypes) serotype 22F (22) 3.8 mcg/m L >32.4 low Not Available [facility]) [address] [place] [address], [address], 09/28/2012 14:24:22 09/24/19 13 09/28/2012 strep tococ cus pneum oniae igg Ab (23 serot ypes) serotype 23F (23) 4.0 mcg/m L >49.0 low Not Available [facility]) [address] [place] [address], [address], 09/28/2012 14:24:22 09/24/19 13 09/28/2012 strep tococ cus pneum oniae igg Ab (23 serot ypes) serotype 6B (26) 1.6 mcg/m L >15.3 low Not Available [facility]) [address] [place] [address], [address], 09/28/2012 14:24:22 09/24/19 13 09/28/2012 strep tococ cus pneum oniae igg Ab (23 serot ypes) serotype 10A (34) 1.6 mcg/m L >25.5 low Not Available [facility]) [address] [place] [address], [address], 09/28/2012 14:24:22 09/24/19 13 09/28/2012 strep tococ cus pneum oniae igg Ab (23 serot ypes) serotype 11A (43) 0.4 mcg/m L >9.7 low Not Available [facility]) [address] [place] [address], [address], 09/28/2012 14:24:22 09/24/19 13 09/28/2012 strep tococ cus pneum oniae igg Ab (23 serot ypes) serotype 7F (51) 2.1 mcg/m L >30.8 low Not Available [facility]) [address] [place] [address], [address], 09/28/2012 14:24:22 09/24/19 13 09/28/2012 strep tococ cus pneum oniae igg Ab (23 serot ypes) serotype 15B (54) 0.3 mcg/m L >12.8 low Not Available [facility]) [address] [place] [address], [address], 09/28/2012 14:24:22 09/24/19 13 09/28/2012 strep tococ cus pneum oniae igg Ab (23 serot ypes) serotype 18C (56) 1.5 mcg/m L >7.0 low Not Available [facility] ([facility] [address] [place], [address], 09/28/2012 14:24:22 09/24/19 13 09/28/2012 strep tococ cus pneum oniae igg Ab (23 serot ypes) serotype 19A (57) 5.1 mcg/m L >28.1 low Not Available [facility] ([facility] [address] [place], [address], 09/28/2012 14:24:22 09/24/19 13 09/28/2012 strep tococ cus pneum oniae igg Ab (23 serot ypes) serotype 9V (68) 1.5 mcg/m L >44.0 low Not Available [facility] ([facility]) [address] [place], [address], 09/28/2012 14:24:22 09/24/19 13 09/28/2012 strep tococ [...] 102: 215-2 1. test perfo rmed by: [facility] [address] , [place] [address] labor atory direc tor: lupe grissom III, M.Jewel. Not Available [facility]) [address] [place] [address], [address], 09/28/2012 14:24:22 09/24/19 13 09/28/2012 igm quant itati on, serum immunoglobul in M (IgM), 104 mg/dL 37 - 286 test perfo rmed by: [facility] [place] [address] [place] [address] labor atory direc tor: roxana vazquez, pH.D. Not Available [facility] ([facility]) [address] [place] [address], [address], 09/28/2012 14:24:23 09/24/19 13 09/28/2012 igg quant itati on, serum immunoglobul in g (IgG), 780 mg/dL refer ence range : 767 - 1590 test perfo rmed by: [facility] [place] [address], [place] [address] labor atory [facility] tor: roxana vazquez, pH.D. Not Available [facility] [address] [place], [address], 09/28/2012 14:24:24 12/13/19 12 12/13/2011 imagi ng/di agnos tic resul t No observ ation record ed. [facility] [address] [place], [address], 04/12/2013 05:57:56 12/16/19 12 12/15/2011 imagi ng/di agnos tic resul t No observ ation record ed. [facility] [address] [place], [address], 04/13/2013 03:00:49 12/16/19 12 12/16/2011 imagi ng/di agnos tic resul t No observ ation record ed. [facility] [address] [place], [address], 04/13/2013 03:04:15 01/25/20 12 01/23/2012 imagi ng/di agnos tic resul t No observ ation record ed. [address], [address] 04/13/2013 03:10:05 01/26/20 12 01/24/2012 imagi ng/di agnos tic resul t No observ ation record ed. [address], [address] 04/13/2013 03:09:51 01/26/20 12 01/23/2012 imagi ng/di agnos tic resul t No observ ation record ed. [address], [address] 04/13/2013 03:09:51 01/27/20 12 01/25/2012 imagi ng/di agnos tic resul t No observ ation record ed. [address] [place], [address] 04/13/2013 03:09:34 02/26/20 13 02/20/2013 pulmo nary funct ion test* No observ ation record ed. [facility] [id number] 04/13/2013 04:17:21 02/29/20 13 pulmo nary funct ion test* No observ ation record ed. [facility] [id number] 04/13/2013 04:16:52 04/11/20 13 04/08/2013 imagi ng/di agnos tic resul t No observ ation record ed. [facility] [id number] 04/11/2013 13:16:40 Result Notes None recorded. 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 Not Available [facility] 3 03:09:05 Extrinsic asthma with asthma attack Active 2005 Not Available [facility] 3 03:09:05 Palpitatio ns 38389118 Active 2005 Not Available [facility] 3 03:09:05 Constipati on 54581387 Completed 200508/07/2013 Not Available [facility] [facility] 3 02:02:38 Sleep disorder 01878068 Active Not Available [facility] 3 03:09:05 Allergic rhinitis 26470151 Active 2007 Not Available [facility] 3 03:09:05 Anxiety state 159285815 Active 2006 Not Available [facility] 3 03:09:05 Neck pain 96067797 Completed 200508/07/2013 Not Available [facility] 3 02:00:34 Attention deficit hyperactiv ity disorder, predominan tly inattentiv e type 53739754 Active Not Available [facility] 3 03:09:05 Allergic asthma without status asthmaticu s 31056774 Active 2005 Not Available [facility] 3 03:09:05 Contact dermatitis due to plants, except food Completed 200508/07/2013 Not Available [facility] 3 02:02:49 Pneumonia 906424731 Completed 200508/07/2013 Not Available [facility] 3 02:02:25 Allergic rhinitis caused by pollen 28665034 Active 2005 Not Available [facility] 3 03:09:05 Chest pain 54421643 Completed 200608/07/2013 Not Available [facility] 3 02:01:46 Asthma 390926215 Active 2006 Not Available [facility] 3 03:09:05 Primary fibromyalg ia syndrome 75713336 Active Not Available [facility] 3 03:09:05 Problem Notes None recorded. Procedures Surgical History Date Name Laterality Status Provider Name and Address Organization Details Recorded Time 09/04/20 12 Smoking cessation counseling completed Eric Us MD [address] [place] [address], [phone], [facility] 09/04/2012 15:26:18 08/08/20 12 Shave Biopsy completed Aisha Maldonado [address] [place] [address], [phone], [facility] 08/08/2012 11:42:16 05/29/20 12 Wart completed Aisha Maldonado [address] [place] [address], [phone], [facility] 05/29/2012 14:37:41 09/18/18 92 Tubal Ligation completed Not Available [facility] 08/04/2011 06:06:16 09/18/18 92 completed Not Available [facility] 08/04/2011 06:06:16 09/18/18 91 Cholecystectomy completed Not Available [facility] 08/04/2011 06:06:16 09/18/18 91 completed Not Available [facility] 08/04/2011 06:06:16 09/18/18 88 completed Not Available [facility] 08/04/2011 06:06:16 Imaging Results Imaging Date Name Status LastModified by Ke arleysunita Details LastModified Time 12/13/2011 imaging/diagno stic result completed [facility] [address] [place], [address], 04/12/2013 05:57:56 12/15/2011 imaging/diagno stic result completed [facility] [address] [place], [address], 04/13/2013 03:00:49 12/16/2011 imaging/diagno stic result completed [facility] [address] [place], [address], 04/13/2013 03:04:15 01/23/2012 imaging/diagno stic result completed [address], [address] 04/13/2013 03:10:05 01/24/2012 imaging/diagno stic result completed [facility] [address] [place] [address], [address] 04/13/2013 03:09:51 01/23/2012 imaging/diagno stic result completed [address], [address] 04/13/2013 03:09:51 01/25/2012 imaging/diagno stic result completed [address], [address] 04/13/2013 03:09:34 02/20/2013 pulmonary function test* completed [facility] [address] 04/13/2013 04:17:21 02/28/2013 pulmonary function test* completed [facility] [address] 04/13/2013 04:16:52 04/08/2013 imaging/diagno stic result completed [address] [address] 04/11/2013 13:16:40 Procedure Notes None recorded. Medical Equipment None Reported. Allergies Allergen ID Allergen Name Allergen Category Reaction Reaction Severity Criticality Documentation Date Start Date Code Code System Note Provider Name and Address Organization Details Recorded Time 94163 Dilantin medicatio n other severe Not available 04/06/201113057 0 RxNorm body aches Not Available [facility] 1 06:05:41 07224 carbamaze pine medicatio n other severe Not available 04/06/20112001 RxNorm body aches Not Available [facility] 1 06:05:41 19950 fosphenyt oin medicatio n other severe Not available 04/06/2011 56685 RxNorm body aches Not Available [facility] 1 06:05:41 38558 Lamictal medicatio n other severe Not available 02/06/2012 92225 2 RxNorm Hepat itis Aisha Maldonado [address] [place] [address], [place], [phone] [place] [address] 2 13:32:31 Medications Name Sig Start Date [...] Address Organization Details Last Updated DateTime 11/22/2011 23649.550 3 g 78 /min 124 mm[Hg] 80 mm[Hg] Olga Liz LPN [facility] 11/22/2011 10:08:55 Date Recorded Body height Body weight Body mass index (BMI) Heart rate Oxygen saturation Oxygen saturation in Arterial blood by Pulse oximetry Systolic blood pressure Diastolic blood pressure Provider Name and Address Organization Details Last Updated DateTime 2 156.21 cm 77435.0 40265 g 33.5 kg/m2 104 /min 98 % 98 % 112 mm[Hg] 62 mm[Hg] Gale Wong MA [facility] 2 15:58:50 Date Recorded Body height Body weight Body mass index (BMI) Heart rate Systolic blood pressure Diastolic blood pressure Provider Name and Address Organization Details Last Updated DateTime 2 154.94 cm 82570.4 4186 g 33.6 kg/m2 60 /min 100 mm[Hg] 70 mm[Hg] Olga Liz LPN [facility] 2 14:07:59 Date Recorded Body height Body weight Body mass index (BMI) Heart rate Systolic blood pressure Diastolic blood pressure Provider Name and Address Organization Details Last Updated DateTime 2 154.94 cm 42659.3 53246 g 34.3 kg/m2 72 /min 138 mm[Hg] 84 mm[Hg] Nedra Avina [facility] 2 09:02:34 Date Recorded Body height Body temperature Heart rate Systolic blood pressure Diastolic blood pressure Provider Name and Address Organization Details Last Updated DateTime 09/04/2012 154.94 cm 98.4 [degF] 80 /min 128 mm[Hg] 70 mm[Hg] Dotty Street CMA [facility] 2 15:02:19 Social History Question Answer Notes LastModified by [employer] Details LastModified Time Tobacco Smoking Status Current Some Day Smoker Gale Wong MA null, [facility] 02/08/2012 15:58:51 Live Alone Or With Others? With Others Lives With , Brother-in -law, Daughter, Grandson, And Two Sons Information not available 01/31/2011 Marital Status Willi Rich [email or web address] Information not available 01/31/2011 Sex: Unknown Functional Status Question Answer Note LastModified by [employer] Details LastModified Time What is your occupation? currently on disability due to allergies and breathing issues Information not available 01/31/2011 Mental Status None recorded. Family History Relationship Description Onset Age of this Age Resolved Age Notes LastModified by Organization Details LastModified Time Father Diabetes mellitus previo usly record ed as Diabet es [email or web address] [id number] Not available 04/29/2013 03:00:29 Father Myocardial infarction 65 74 [email or web address] [id number] Not available 04/29/2013 03:00:29 Father Malignant neoplasm of prostate previo usly record ed as Cancer - Prosta te [email or web address] [id number] Not available 04/29/2013 03:00:29 Mother Dementia Alzhei flaquita's [email or web address] [id number] Not available 04/29/2013 03:00:29 Notes:Father adopted Medical History Condition Response PSYCHIATRIC Y RESPIRATORY Y Anxiety Y Asthma Y Seizures Y Sleep Apnea Y Gynecological HistoryNo gynecological history recorded. Obstetrics History GPAL:G 0 P 0 0 0 0 Immunizations Vaccine Type Date Status Note Provider Nam e and Address Organization Details Recorded Time Influenza, split virus, trivalent, preservative 1 completed Not Available [facility] 10/05/2019 02:34:20 Past Encounters Encounter ID Performer Location Encounter Start Date Encounter Closed Date Diagnosis/Indication Diagnosis SNOMED-CT Code Diagnosis ICD10 Code Diagnosis Note [id number] Mary Guerrier MD , [facility], OFFICE [address] [place] [address] 11/29/2005 11:21:19 12/02/2005 12:35:29 [id number] Mary Guerrier MD , [facility], OFF[address] [place] [address] 12/09/2005 13:36:30 12/09/2005 16:14:00 [id number] Roxana Garg M.D . , [facility], OFF[address] [place] [address] 02/10/2006 15:03:54 10/08/2008 02:02:[id number] [facility] RADIOLOGY [employer] Radiology , [facility] [address] [place] [address] 02/10/2006 15:32:23 10/08/2008 02:02:29 [id number] Cindy Maier NP , [facility], OFF[address] [place] [address] 02/17/2006 11:25:32 02/17/2006 14:00:04 [id number] Mary Guerrier MD , [facility], OFF[address] [place] [address] 02/23/2006 15:11:38 10/08/2008 02:02:29 [id number] Mary Guerrier MD , [facility], OFF[address] [place] [address] 03/07/2006 14:05:34 10/08/2008 02:02:29 [id number] Roxana Garg M.D . , [facility], [address] [place] [address] 03/25/2006 10:02:20 03/25/2006 12:12:06 [id number] Mary Guerrier MD , [facility], OFF[address] [place] [address] 04/03/2006 09:53:58 04/03/2006 13:37:50 [id number] Home I[employer]z. , [facility] [address] [place] [address] 04/22/2006 00:00:00 10/08/2008 02:02:29 [id number] Mary Guerrier MD , [facility], OFF[address] [place] [address] 05/02/2006 14:53:55 05/02/2006 16:47:20 [id number] Adonay Qureshi MD , [facility], [facility] [address] [place] [address] 04/24/2006 00:00:00 10/08/2008 02:02:29 [id number] Mary Guerrier MD , [facility], OFF[address] [place] [address] 06/01/2006 10:24:20 06/01/2006 14:04:47 [id number] Mary Guerrier MD , [facility], OFF[address] [place] [address] 08/31/2006 09:47:52 09/01/2006 14:39:36 [id number] ARIANNA Mata, [facility], OFFICE [address] [place] [address] 10/19/2006 09:29:42 10/19/2006 11:28:44 [id number] ARIANNA Mata, [facility], OFFICE [address] [place] [address] 10/20/2006 11:37:45 10/20/2006 16:33:40 [id number] Mary Guerrier MD , [facility], OFFICE [address] [place] [address] 10/26/2006 14:56:42 10/27/2006 08:43:56 [id number] MD TRUDI Delgado, [facility], [address] [place] [address] 01/22/2007 11:45:31 01/23/2007 11:08:32 [id number] MD TRUDI Delgado, [facility], OFFICE [address] [place] [address] 01/26/2007 09:29:45 01/26/2007 11:31:49 [id number] Mary Guerrier MD , [facility], OFFICE [address] [place] [address] 03/13/2007 08:48:38 03/13/2007 15:28:14 [id number] Mary Guerrier MD , [facility], OFFICE [address] [place] [address] 03/14/2007 08:11:45 03/14/2007 10:23:27 [id number] ARIANNA Mata, [facility], OFFICE [address] [place] [address] 04/16/2007 08:04:48 04/16/2007 10:38:24 [id number] ARIANNA Mata, [facility], OFFICE [address] [place] [address] 04/17/2007 09:11:14 04/17/2007 11:08:08 [id number] Home Soriano, [facility], OFFICE [address] [place] [address] 04/18/2007 09:20:42 04/18/2007 11:15:41 [id number] Home Soriano, [facility], OFFICE [address] [place] [address] 05/01/2007 09:33:59 05/01/2007 12:22:51 [id number] ARIANNA Luz, [facility], OFFICE [address] [place] [address] 08/16/2007 08:05:19 10/08/2008 02:02:29 [id number] ARIANNA Luz, [facility], OFFICE [address] [place] [address] 08/20/2007 07:30:39 10/08/2008 02:02:[id number] [facility] RADIOLOGY Technologi [facility] [address] [place] [address] 08/20/2007 09:08:20 08/21/2007 09:14:14 [id number] [facility] - [facility] [address] [place] [address] 08/16/2007 00:00:00 10/08/2008 02:02:29 [id number] Alivia Hogan NP FP, [facility], OFFICE [address] [place] [address] 09/14/2007 08:18:39 10/08/2008 02:02:29 [id number] Cindy Maier NP FP, [facility], OFFICE [address] [place] [address] 10/11/2007 09:32:44 10/08/2008 02:02:29 [id number] Alivia Hogan NP FP, [facility], OFF[address] [place] [address] 11/06/2007 08:11:40 10/08/2008 02:02:29 [id number] Aisha BRUSH, [facility], OFFICE [address] [place] [address] 01/31/2011 13:36:53 02/03/2011 14:28:59 [id number] Aisha BRUSH, [facility], OFF[address] [place] [address] 02/07/2011 10:44:54 02/09/2011 11:12:57 [id number] [facility] Radiology , [facility] [address] [place] [address] 02/09/2011 13:50:14 02/10/2011 11:00:53 [id number] Aisha BRUSH, [facility], OFFICE [address] [place] [address] 04/07/2011 11:08:35 04/07/2011 12:36:55 [id number] Aisha BRUSH [facility], OFFICE [address] [place] [address] 05/16/2011 09:09:40 05/16/2011 10:04:45 [id number] Aisha Maldonado , [facility], OFF[address] [facility] [place] [address] 05/24/2011 13:08:17 05/24/2011 14:16:41 [id number] Aisha BRUSH, [facility], OFF[address] [facility] [place] [address] 06/06/2011 14:22:30 06/06/2011 15:21:37 [id number] Aisha BRUSH, [facility], OFF[address] [facility] [place] [address] 07/06/2011 13:30:31 07/06/2011 14:22:26 [id number] Aisha BRUSH, [facility], OFF[address] [facility] [place] [address] 09/01/2011 08:47:24 09/01/2011 09:50:33 [id number] Aisha BRUSH, [facility], OFF[address] [facility] [place] [address] 09/20/2011 14:11:53 09/20/2011 15:04:05 [id number] Aisha BRUSH, [facility], OFF[address] [facility] [place] [address] 11/22/2011 09:47:29 11/22/2011 11:22:46 [id number] Aisha BRUSH, [facility], OFF[address] [facility] [place] [address] 02/08/2012 15:36:44 02/08/2012 17:20:14 [id number] Aisha BRUSH, [facility], OFF[address] [facility] [place] [address] 05/29/2012 13:43:47 05/29/2012 14:53:23 [id number] Aisha BRUSH, [facility], OFF[address] [facility] [place] [address] 08/08/2012 08:49:09 08/08/2012 11:27:24 [id number] MD TRUDI Ventura, [facility], OFFICE [address] [facility] [place] [address] 09/04/2012 14:37:22 09/04/2012 17:16:21 Health Concerns Section Related Observation LastModified by Organization Detai ls LastModified Time None Recorded Concern Status LastModified by Organization Details LastModified Time None Recorded Advance Directives Directive None Recorded Payers Encounter Date Sequence Insurance Name Policy Number Policy Mcmahon Covered Member ID Mcmahon Member ID Guarantor Name 11/22/2011 1 [place] [facility] Olga A Hilario [id number] Haydee Rich 02/08/2012 1 [place] [facility] Olga A Hilario [id number] A Olga Clark 05/29/2012 1 [place] [facility] Olga A Hilario [id number] Haydee Rihc 08/08/2012 1 [place] [facility] Olga A Hilario [id number] A Olga Rich 09/04/2012 1 [place] [facility] Olga A Hilario [id number] A Olga Rich Notes Date Note Type Note Provider Name [...] determine long-term plan for lungs. Aisha Maldonado [address] [place] [address], [place], [address], [facility] 11/22/2011 13:30:16 02/08/2012 text/html [facility]; she was admitted from 01/22/12-01/27/12 for [...] quite some time afterwards. Aisha Maldonado [address] [place], [address], [facility] 02/08/2012 17:29:11 05/29/2012 text/html Pt comes in to y for wart treatment on R foot. Pt [...] her to become addicted. Aisha Maldonado [address] [place], [address], [facility] 05/29/2012 15:31:46 08/08/2012 text/html Pt comes in toda y for removal of warts R foot; pt had them removed 2 years ago but they recurred. They are painful and have been growing rapidly so she would like them removed. Aisha Maldonado [address] [place] [address], [place], [address], [facility] 08/08/2012 11:42:22 OBGyn Episode No OBEpisode recorded.
[2025-02-06 12:41] LABS: VBG Base Excess -2.8 mmol/L; VBG HCO3 21 mmol/L (22-26); VBG pCO2 37 mmHg; VBG pH 7.36 (7.32-7.43); VBG pO2 49 mmHg
[2025-02-06 12:41] LABS: Venous Blood Gas Refer to POC result
[2025-02-06 12:51] LABS: Alanine Aminotransferase 46 U/L (0-31); Albumin Level 4.2 g/dL (3.5-5.0); Alkaline Phosphatase 90 U/L (39-117); Anion Gap 16 (12-20); Aspartate Amino Transferase 64 U/L (5-31); Bilirubin Total 0.4 mg/dL (0.0-1.0); Blood Urea Nitrogen 15 mg/dL (9-16); Calcium 8.8 mg/dL (8.4-10.2); Carbon Dioxide 21 mmol/L (22-29); Chloride 109 mmol/L (96-108); Estimated Glomerular Filt Rate > 60; Glucose Random 154 mg/dL (60-115); Potassium 2.8 mmol/L (3.3-5.1); Sodium 143 mmol/L (135-145); Total Protein 7.3 g/dL (6.5-8.0)
[2025-02-06 12:56] LABS: Lactic Acid 2.3 mmol/L (0.5-2.0)
[2025-02-06 12:58] LABS: Influenza A PCR NEGATIVE (Negative); Influenza B PCR NEGATIVE (Negative); Resp Syncy Virus RNA Qual PCR NEGATIVE (Negative); SARS COV2 PCR INHOUSE NEGATIVE (Negative)
--- NOTE | 2025-02-06 12:59 | ECG_ITS ---
Test Reason : hypokalemia Blood Pressure : */* mmHG Vent. Rate : 74 BPM Atrial Rate : 74 BPM P-R Int : 152 ms QRS Dur : 104 ms QT Int : 440 ms P-R-T Axes : 54 49 74 degrees QTcB Int : 488 ms Normal sinus rhythm Prolonged QT Abnormal ECG When compared with ECG of 03-Feb-2025 19:08, No significant change was found Referred By: Karina Stratton Electronically Signed By: JOLIE OVERTON MD
[2025-02-06] MEDS: Lactated Ringers 1,000 ML 999 ML IV (13:08)
[2025-02-06] MEDS: Potassium Chloride ER 20 MEQ TAB.ER.PRT 40 MEQ PO (13:44)
[2025-02-06] MEDS: Potassium Chloride/H20 10 MEQ/100 ML PIGGYBACK 100 MEQ IV ×4 (13:44→17:50)
[2025-02-06 14:36] LABS: Reflex Lactate? Lactic Acid Added
[2025-02-06 15:22] LABS: ~Lactic Acid-LAB USE ONLY 2.6 mmol/L (0.5-2.0)
--- NOTE | 2025-02-06 16:40 | PHA.MEDREC ---
Addendum entered by Kiera Whalen RPh 02/06/25 16:55: reviewed by [facility]. Original Note: Pharmacy Consult ? Medication Reconciliation Pharmacy has completed the medication reconciliation. Spoke to patient to confirm med list. Patient states she is no longer taking Lorazepam 0.5 mg, Metformin 500 mg, Multiviteamin, and Potassium citrate. Patient confirmed Mounjaro 5 mg evevry , last dose today. Tezspire 210 mg every 4 weeks. next dose is 02/14/25. Patient states she is still taking Lisinopril 20 mg, however last fill date was 07/03/30 for 30 days. Patient claims she has a stock pile of this medication.
[2025-02-06 16:58] LABS: Reflex Lactate? 2 Y
--- NOTE | 2025-02-06 17:57 | PM.IMHP ---
History of Present Illness Date of Service: 02/06/25 Chief Complaint: sob 54F PMH COPD/severe persistent asthma, hypertension, hyperlipidemia, diabetes mellitus, TEO not on CPAP, fibromyalgia, mood disorder presented with shortness of breath. Patient states symptoms began 1-2 weeks ago likely induced by seasonal allergies, came to ED 2 days prior to presentation and started on prednisone with no relief, continue shortness breast so came to ED. Denies any fever, chills. In ED noted to be wheezing bilaterally, no hypoxia. Also noted to have potassium of 2.8. Review of Systems Review of Systems: Yes all other systems are reviewed and are negative [facility] Medical History DMII (diabetes mellitus, type 2) Bilateral knee pain Bilateral foot pain Colon cancer screening Annual physical exam Acute pneumonia Obese Anxiety COPD (chronic obstructive pulmonary disease) Sleep apnea History of suicide attempt Asthma-COPD overlap syndrome HTN (hypertension) ADHD Epilepsy Fibromyalgia Tracheomalacia Cocaine abuse Alcohol abuse Asthma Family History Father No problems noted. 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hearing loss mostly from right ear.) Vision needs: Yes (Pt was seen 6 months and exam was good just need readig glasses.) Meds Allergies Allergy/AdvReac Type Severity Reaction Status Date / Time hydromorphone [From DILAUDID] Allergy Severe SEIZURES Verified 02/06/25 11:44 oxycodone [OXYCODONE] Allergy Severe SEIZURES Verified 02/06/25 11:44 vancomycin Allergy Severe Rash Verified 02/06/25 11:44 gabapentin [GABAPENTIN] Allergy Intermediate MUSCLE ACHE Verified 02/06/25 11:44 albuterol Allergy Mild Trouble Verified 02/06/25 11:44 breathing;MDI use only bupropion [From WELLBUTRIN] Allergy Unknown SEIZURES Verified 02/06/25 11:44 phenytoin [Dilantin] Allergy Unknown Unknown Verified 02/06/25 11:44 azithromycin Allergy Hives Verified 02/06/25 11:44 Active Medications: Current Medications Doxycycline Monohydrate (Doxycycline Monohydrate 100 Mg Capsule) 100 mg PO Q12H BEATRIZ Enoxaparin Sodium (Enoxaparin Sodium 40 Mg/0.4 Ml Syringe) 40 mg SUBCUT Q24H [facility] Levalbuterol HCl (Levalbuterol Hcl 1.25 Mg/3 Ml Vial.Neb) 1.25 mg INHALE RQ4H WHILE AWAKE [facility] Methylprednisolone Sodium Succinate (Methylprednisolone Sod Succ 40 Mg/Ml Vial) 40 mg IVPUSH Q12H [facility] Home Medications ?Medication ?Instructions ?Recorded ?Confirmed ?Last Taken ?Type dextroamphetamine-amphetamine 20 10 mg PO BID@0700,1400 07/26/20 02/06/25 02/06/25 History mg tablet levalbuterol tartrate 45 2 puff inhalation Q4H PRN Wheezing 04/20/22 02/06/25 04/20/22 History mcg/actuation aerosol inhaler (Xopenex HFA) clonidine HCl 0.1 mg tablet 0.1 mg PO BEDTIME 03/20/23 02/06/25 02/05/25 History dextroamphetamine-amphetamine ER 1 cap PO DAILY@0700 03/20/23 02/06/25 02/06/25 History 20 mg 24hr capsule,extend release diphenhydramine HCl 25 mg capsule 25 mg PO BEDTIME PRN Sleep 03/05/24 02/06/25 Unknown History (Benadryl) ipratropium 0.5 mg-albuterol 3 mg 3 ml inhalation Q4H PRN shortness 03/05/24 02/06/25 Unknown History (2.5 mg base)/3 mL nebulization of breath or wheezing soln tezepelumab-ekko 210 mg/1.91 mL 210 mg subcut Q4W 03/05/24 02/06/25 01/15/25 History (110 mg/mL) subcutaneous pen injector (Tezspire) calcium carbonate 500 mg PO DAILY 05/30/24 02/06/25 02/06/25 History lisinopril 20 mg tablet 20 mg PO DAILY 05/30/24 02/06/25 02/06/25 History multivitamin 1 tab PO DAILY 05/30/24 02/06/25 02/06/25 History tirzepatide 5 mg/0.5 mL 5 mg subcut TH 05/30/24 02/06/25 02/06/25 History subcutaneous pen injector (Jamesjaro) soy isoflavone-black cohosh 1 cap PO DAILY 02/06/25 02/06/25 Unknown History root-magnolia bark 155 mg capsule (Estroven) Physical Exam Vital Signs and Narrative: Vital Signs: Last Vital Signs Temp 98.0 F 02/06/25 16:00 Pulse 73 02/06/25 16:00 Resp 18 02/06/25 16:00 BP 130/80 02/06/25 16:00 Pulse Ox 97 02/06/25 16:00 O2 Del Method Room Air 02/06/25 16:00 BMI result Body Mass Index 27.9 General: AO X 3, no acute distress Resp: wheezing bilateral, no accessory muscles used CVS: S1,S2,RRR GI: soft, non tender, non distended Neuro: motor grossly intact, alert Psych: appropriate affect, appropriate insight Results Labs 02/06/25 12:10 02/06/25 12:10 Labs: Laboratory Results - last 24 hr 02/06/25 02/06/25 02/06/25 12:10 12:26 12:37 MCV 99.5 H MCH 34.4 H MCHC 34.6 RDW 13.8 Plt Count 310 MPV 9.4 Immature Gran % (Auto) 0.5 H Neut % (Auto) 68.6 Lymph % (Auto) 24.2 [place] % (Auto) 5.7 Eos % (Auto) 0.3 Baso % (Auto) 0.7 Lymph # (Auto) 2.9 [place] # (Auto) 0.7 Eos # (Auto) 0.0 Baso # (Auto) 0.1 Abs Immat Gran (auto) 0.06 H Absolute Neuts (auto) 8.1 Absolute Nucleated RBC 0.000 Nucleated RBC % (auto) 0.0 VBG pH 7.36 VBG pCO2 37 VBG pO2 49 VBG HCO3 21 L VBG O2 Saturation 75.0 VBG Base Excess -2.8 Anion Gap 16 Estim Creat Clear Calc 76.0 Estimated GFR > 60 Random Glucose 154 H Lactic Acid 2.3 H* Lactic Acid F/U @ 2Hr Lactic Acid F/U @ 4Hr Calcium 8.8 Total Bilirubin 0.4 AST 64 H ALT 46 H Alkaline Phosphatase 90 Total Protein 7.3 Albumin 4.2 Influenza Type A (PCR) NEGATIVE Influenza Type B (PCR) NEGATIVE RSV RNA Qual (PCR) NEGATIVE SARS-CoV-2 RNA (RT-PCR) NEGATIVE 02/06/25 02/06/25 14:54 17:12 MCV MCH MCHC RDW Plt Count MPV Immature Gran % (Auto) Neut % (Auto) Lymph % (Auto) [place] % (Auto) Eos % (Auto) Baso % (Auto) Lymph # (Auto) [place] # (Auto) Eos # (Auto) Baso # (Auto) Abs Immat Gran (auto) Absolute Neuts (auto) Absolute Nucleated RBC Nucleated RBC % (auto) VBG pH VBG pCO2 VBG pO2 VBG HCO3 VBG O2 Saturation VBG Base Excess Anion Gap Estim Creat Clear Calc Estimated GFR Random Glucose Lactic Acid Lactic Acid F/U @ 2Hr 2.6 H* Lactic Acid F/U @ 4Hr 3.0 H* Calcium Total Bilirubin AST ALT Alkaline Phosphatase Total Protein Albumin Influenza Type A (PCR) Influenza Type B (PCR) RSV RNA Qual (PCR) SARS-CoV-2 RNA (RT-PCR) Imaging Radiologist's Impressions: Impressions Chest X-Ray 02/06/25 11:43 IMPRESSION: Subsegmental atelectasis versus scarring, right middle lung lobe. Electronically signed by: Cleveland Irving MD 02/06/2025 12:00 PM EDT Assessment and Plan (1) Anxiety: Status: Acute Plan 54F PMH COPD/severe persistent asthma, hypertension, hyperlipidemia, diabetes mellitus, TEO not on CPAP, fibromyalgia, mood disorder presented with shortness of breath Severe persistent asthma/COPD with acute decompensation Steroids, nebs, doxycycline Acute hypokalemia Replace and monitor Acute lactic acidosis Due to nebs not sepsis Diabetes Insulin sliding scale Hypertension Lisinopril DVT prophylaxis Lovenox Full Code Given severity of hypokalemia expected require at least 2 midnights inpatient Quality Stroke Does the patient have a stroke diagnosis?: No VTE Prior VTE?: No VTE Risk Level:: Medical - moderate - high VTE Device Contraindication: Treatment Not Indicated VTE Drug Contraindication: N/A - Med Ordered
[2025-02-06 18:12] LABS: Glucose, Whole Blood 276 mg/dL (60-115)
[2025-02-06 18:51] LABS: Cancel Lactic Acid Canceled
[2025-02-06] MEDS: levalbuterol HCL 1.25 MG/3 ML VIAL.NEB INHALE (19:14)
[2025-02-06] MEDS: Doxycycline Monohydrate 100 MG CAPSULE PO (19:20)
[2025-02-06 20:34] LABS: Glucose, Whole Blood 280 mg/dL (60-115)
[2025-02-06] MEDS: cloNIDine HCL 0.1 MG TABLET PO (22:11)
[2025-02-06] MEDS: Insulin Lispro 100 UNIT/ML 3 ML VIAL SUBCUT (22:11)
[2025-02-06] MEDS: 0.9 % Sodium Chloride Flush 3 ML SYRINGE IVFLUSH (22:11)
[2025-02-06] MEDS: methylPREDNISolone Sod Succ 40 MG/ML VIAL IVPUSH (23:13)
[2025-02-07] VITALS (10 sets, daily range): BP systolic 116–168; BP diastolic 76–88; PULSE 65–113; RESP 16–18; TEMP 36.2–37.1; O2SAT 93–97
[2025-02-07] MEDS: Doxycycline Monohydrate 100 MG CAPSULE PO ×2 (06:04→18:04)
[2025-02-07] MEDS: Dextroamphetamine/Amphetamine XR 10 MG CAP.ER.24H 20 MG PO (06:04)
[2025-02-07] MEDS: Amphetamine Mixed Salts 10 MG TABLET PO ×2 (06:04→14:19)
[2025-02-07] MEDS: levalbuterol HCL 1.25 MG/3 ML VIAL.NEB INHALE ×4 (06:23→19:30)
[2025-02-07 06:25] LABS: Hemoglobin 14.8 g/dl (12.0-16.0); Mean Corpuscular HGB Conc 34.4 g/dl (31.0-35.0); Mean Corpuscular Hemoglobin 34.3 pg (27.0-33.0); Mean Corpuscular Volume 99.5 fL (80.0-98.0); Mean Platelet Volume 9.9 fL (9.4-12.3); Platelet Count 306 X10*3/uL (160-400); Red Blood Count 4.32 X10*6/uL (4.20-5.50); Red Cell Distribution Width 13.2 % (11.0-16.0); White Blood Count 12.9 X10*3/uL (4.8-10.8)
[2025-02-07 06:41] LABS: Anion Gap 15 (12-20); Blood Urea Nitrogen 15 mg/dL (9-16); Calcium 9.4 mg/dL (8.4-10.2); Carbon Dioxide 24 mmol/L (22-29); Chloride 105 mmol/L (96-108); Creatinine Clr Calc Pharmacy 81.6; Estimated Glomerular Filt Rate > 60; Glucose Random 263 mg/dL (60-115); Magnesium 2.2 mg/dL (1.6-2.6); Potassium 4.4 mmol/L (3.3-5.1); Sodium 140 mmol/L (135-145)
[2025-02-07 07:35] LABS: Glucose, Whole Blood 281 mg/dL (60-115)
[2025-02-07] MEDS: Insulin Lispro 100 UNIT/ML 3 ML VIAL SUBCUT ×3 (07:50→20:00)
[2025-02-07] MEDS: Calcium Oyster Shell Elemental 500 MG TABLET PO (07:52)
[2025-02-07] MEDS: lisinopriL 20 MG TABLET PO (07:52)
[2025-02-07] MEDS: 0.9 % Sodium Chloride Flush 3 ML SYRINGE IVFLUSH ×3 (07:52→20:00)
[2025-02-07] MEDS: Multivitamin TABLET 1 TAB PO (07:52)
--- NOTE | 2025-02-07 08:34 | P.PNIM_ITS ---
Subjective Subjective Date of Service: 02/07/25 Interval History: improved, still wheezy and sob Physical Exam 2 Vital Signs: Vital Signs: Last Vital Signs Temp 97.7 F 02/07/25 07:21 Pulse 76 02/07/25 07:21 Resp 18 02/07/25 07:21 BP 161/82 H 02/07/25 07:21 Pulse Ox 97 02/07/25 07:21 O2 Del Method Room Air 02/07/25 07:21 BMI result Body Mass Index 27.9 General: AO X 3, no acute distress Resp: wheezing bilateral, no accessory muscles used CVS: S1,S2,RRR GI: soft, non tender, non distended Neuro: motor grossly intact, alert Psych: appropriate affect, appropriate insight Objective Data Active Medications Acetaminophen (Acetaminophen 325 Mg Tablet) 650 mg PO Q6H PRN PRN Reason: Pain, Mild 1-3,fever,headache Amphetamine/Dextroamphetamine (Amphetamine Mixed Salts 10 Mg Tablet) 10 mg PO BID@0700,1400 [facility] Last Admin: 02/07/25 06:04 Dose: 10 mg Documented By: OSMIN Amphetamine/Dextroamphetamine (Dextroamphetamine/Amphetamine Xr 10 Mg Cap.Er.24h) 20 mg PO DAILY@0700 [facility] Last Admin: 02/07/25 06:04 Dose: 20 mg Documented By: OSMIN Calcium Carbonate (Calcium Oyster Shell Elemental 500 Mg Tablet) 500 mg PO DAILY [facility] Last Admin: 02/07/25 07:52 Dose: 500 mg Documented By: COLBURJean Calcium Carbonate (Calcium Carbonate 750 Mg Tab.Chew) 750 mg PO Q4H PRN PRN Reason: Heartburn Clonidine HCl (Clonidine Hcl 0.1 Mg Tablet) 0.1 mg PO BEDTIME [facility]; Protocol Last Admin: 02/06/25 22:11 Dose: 0.1 mg Documented By: OSMIN Dextrose (Dextrose 50 % 25 Gm/50 Ml Syringe) 25 gm IVPUSH Q15M PRN; Protocol PRN Reason: per Hypoglycemia Standing Ord. Diphenhydramine HCl (Diphenhydramine Hcl 25 Mg Capsule) 25 mg PO BEDTIME PRN PRN Reason: Sleep Doxycycline Monohydrate (Doxycycline Monohydrate 100 Mg Capsule) 100 mg PO Q12H [facility] Last Admin: 02/07/25 06:04 Dose: 100 mg Documented By: OSMIN Enoxaparin Sodium (Enoxaparin Sodium 40 Mg/0.4 Ml Syringe) 40 mg SUBCUT Q24H [facility] Glucose (Glucose Gel 15 Gm Gel..Gram.) 15 gm PO Q15M PRN; Protocol PRN Reason: per Hypoglycemia Standing Ord. Insulin Human Lispro (Insulin Lispro 100 Unit/Ml 3 Ml Vial) 0 unit SUBCUT QIDACHS [facility]; Protocol Last Admin: 02/07/25 07:50 Dose: 6 unit Documented By: WICHO Levalbuterol HCl (Levalbuterol Hcl 1.25 Mg/3 Ml Vial.Neb) 1.25 mg INHALE RQ4H WHILE AWAKE [facility] Last Admin: 02/07/25 06:23 Dose: 1.25 mg Documented By: RADHA Lisinopril (Lisinopril 20 Mg Tablet) 20 mg PO DAILY [facility]; Protocol Last Admin: 02/07/25 07:52 Dose: 20 mg Documented By: WICHO Magnesium Hydroxide (Milk Of Magnesia 30 Ml Oral.Susp) 30 ml PO DAILY PRN PRN Reason: Constipation Melatonin (Melatonin 3 Mg Tablet) 6 mg PO BEDTIME PRN PRN Reason: Insomnia Methylprednisolone Sodium Succinate (Methylprednisolone Sod Succ 40 Mg/Ml Vial) 40 mg IVPUSH Q12H [facility] Last Admin: 02/06/25 23:13 Dose: 40 mg Documented By: OSMIN Multivitamins/Vitamin C (Multivitamin Tablet) 1 tab PO DAILY [facility] Last Admin: 02/07/25 07:52 Dose: 1 tab Documented By: WICHO Sodium Chloride (0.9 % Sodium Chloride Flush 3 Ml Syringe) 3 ml IVFLUSH QSHIFT [facility] Last Admin: 02/07/25 07:52 Dose: 3 ml Documented By: WICHO Labs 02/07/25 05:29 02/07/25 05:29 Labs: Laboratory Results - last 24 hr 02/06/25 02/06/25 02/06/25 12:10 12:26 12:37 MCV 99.5 H MCH 34.4 H MCHC 34.6 RDW 13.8 Plt Count 310 MPV 9.4 Immature Gran % (Auto) 0.5 H Neut % (Auto) 68.6 Lymph % (Auto) 24.2 [place] % (Auto) 5.7 Eos % (Auto) 0.3 Baso % (Auto) 0.7 Lymph # (Auto) 2.9 [place] # (Auto) 0.7 Eos # (Auto) 0.0 Baso # (Auto) 0.1 Abs Immat Gran (auto) 0.06 H Absolute Neuts (auto) 8.1 Absolute Nucleated RBC 0.000 Nucleated RBC % (auto) 0.0 VBG pH 7.36 VBG pCO2 37 VBG pO2 49 VBG HCO3 21 L VBG O2 Saturation 75.0 VBG Base Excess -2.8 Anion Gap 16 Estim Creat Clear Calc 76.0 Estimated GFR > 60 POC Glucose Random Glucose 154 H Lactic Acid 2.3 H* Lactic Acid F/U @ 2Hr Lactic Acid F/U @ 4Hr Calcium 8.8 Magnesium Total Bilirubin 0.4 AST 64 H ALT 46 H Alkaline Phosphatase 90 Total Protein 7.3 Albumin 4.2 Influenza Type A (PCR) NEGATIVE Influenza Type B (PCR) NEGATIVE RSV RNA Qual (PCR) NEGATIVE SARS-CoV-2 RNA (RT-PCR) NEGATIVE 02/06/25 02/06/25 02/06/25 14:54 17:12 18:09 MCV MCH MCHC RDW Plt Count MPV Immature Gran % (Auto) Neut % (Auto) Lymph % (Auto) [place] % (Auto) Eos % (Auto) Baso % (Auto) Lymph # (Auto) [place] # (Auto) Eos # (Auto) Baso # (Auto) Abs Immat Gran (auto) Absolute Neuts (auto) Absolute Nucleated RBC Nucleated RBC % (auto) VBG pH VBG pCO2 VBG pO2 VBG HCO3 VBG O2 Saturation VBG Base Excess Anion Gap Estim Creat Clear Calc Estimated GFR POC Glucose 276 H Random Glucose Lactic Acid Lactic Acid F/U @ 2Hr 2.6 H* Lactic Acid F/U @ 4Hr 3.0 H* Calcium Magnesium Total Bilirubin AST ALT Alkaline Phosphatase Total Protein Albumin Influenza Type A (PCR) Influenza Type B (PCR) RSV RNA Qual (PCR) SARS-CoV-2 RNA (RT-PCR) 02/06/25 02/07/25 02/07/25 20:28 05:29 07:25 MCV 99.5 H MCH 34.3 H MCHC 34.4 RDW 13.2 Plt Count 306 MPV 9.9 Immature Gran % (Auto) Neut % (Auto) Lymph % (Auto) [place] % (Auto) Eos % (Auto) Baso % (Auto) Lymph # (Auto) [place] # (Auto) Eos # (Auto) Baso # (Auto) Abs Immat Gran (auto) Absolute Neuts (auto) Absolute Nucleated RBC 0.000 Nucleated RBC % (auto) 0.0 VBG pH VBG pCO2 VBG pO2 VBG HCO3 VBG O2 Saturation VBG Base Excess Anion Gap 15 Estim Creat Clear Calc 81.6 Estimated GFR > 60 POC Glucose 280 H 281 H Random Glucose 263 H Lactic Acid Lactic Acid F/U @ 2Hr Lactic Acid F/U @ 4Hr Calcium 9.4 D Magnesium 2.2 Total Bilirubin AST ALT Alkaline Phosphatase Total Protein Albumin Influenza Type A (PCR) Influenza Type B (PCR) RSV RNA Qual (PCR) SARS-CoV-2 RNA (RT-PCR) Assessment and Plan (1) COPD (chronic obstructive pulmonary disease): Status: Acute Plan 54F PMH COPD/severe persistent asthma, hypertension, hyperlipidemia, diabetes mellitus, TEO not on CPAP, fibromyalgia, mood disorder presented with shortness of breath Severe persistent asthma/COPD with acute decompensation continue Steroids, nebs, doxycycline Acute hypokalemia Replaced Acute lactic acidosis Due to nebs not sepsis Diabetes Insulin sliding scale Hypertension Lisinopril DVT prophylaxis Lovenox Full Code reason for continued hospitalization:sob, wheezy Quality Stroke Does the patient have a stroke diagnosis?: No VTE Prior VTE?: No VTE Risk Level:: Medical - moderate - high VTE Device Contraindication: Treatment Not Indicated VTE Drug Contraindication: N/A - Med Ordered
[2025-02-07] MEDS: Enoxaparin Sodium 40 MG/0.4 ML SYRINGE SUBCUT (09:16)
[2025-02-07 11:27] LABS: Glucose, Whole Blood 132 mg/dL (60-115)
[2025-02-07] MEDS: methylPREDNISolone Sod Succ 40 MG/ML VIAL IVPUSH ×2 (12:05→23:18)
--- NOTE | 2025-02-07 13:58 | MHC.CM.PN ---
PT REPORTS SHE LIVES WITH HER AND CHILDREN AND IS INDEPENDENT WITH CARE SHE HAS A CANE AND WALKER THAT SHE DOES NOT USE, SHE ALSO HAS A NEBULIZER SHE USES PRN HCP ON FILE PCP: MATTY BLACKMAN IMM DELIVERED DCP: HOME NO SERVICES VIA PRIVATE TRANSPORT
[2025-02-07 16:13] LABS: Glucose, Whole Blood 324 mg/dL (60-115)
[2025-02-07] MEDS: Acetaminophen 325 MG TABLET 650 MG PO (16:57)
[2025-02-07 19:48] LABS: Glucose, Whole Blood 288 mg/dL (60-115)
[2025-02-07] MEDS: cloNIDine HCL 0.1 MG TABLET PO (19:59)
[2025-02-07] MEDS: diphenhydrAMINE HCL 25 MG CAPSULE PO (20:03)
[2025-02-08 03:18] VITALS: BP 157/78; PULSE 75; RESP 18; TEMP 36.3; O2SAT 96
[2025-02-08] MEDS: Doxycycline Monohydrate 100 MG CAPSULE PO (06:22)
[2025-02-08] MEDS: Dextroamphetamine/Amphetamine XR 10 MG CAP.ER.24H 20 MG PO (06:22)
[2025-02-08] MEDS: Amphetamine Mixed Salts 10 MG TABLET PO (06:22)
[2025-02-08 07:17] LABS: Hematocrit 43.1 % (37.0-47.0); Hemoglobin 14.7 g/dl (12.0-16.0); Mean Corpuscular HGB Conc 34.1 g/dl (31.0-35.0); Mean Corpuscular Hemoglobin 34.3 pg (27.0-33.0); Mean Corpuscular Volume 100.5 fL (80.0-98.0); Mean Platelet Volume 10.3 fL (9.4-12.3); Platelet Count 331 X10*3/uL (160-400); Red Blood Count 4.29 X10*6/uL (4.20-5.50); Red Cell Distribution Width 13.4 % (11.0-16.0); White Blood Count 15.2 X10*3/uL (4.8-10.8)
[2025-02-08 07:24] VITALS: BP 164/92; PULSE 75; RESP 16; TEMP 36.1; O2SAT 95
[2025-02-08 07:38] LABS: Anion Gap 15 (12-20); Blood Urea Nitrogen 18 mg/dL (9-16); Calcium 9.2 mg/dL (8.4-10.2); Carbon Dioxide 22 mmol/L (22-29); Chloride 104 mmol/L (96-108); Creatinine Clr Calc Pharmacy 84.1; Estimated Glomerular Filt Rate > 60; Glucose Random 332 mg/dL (60-115); Sodium 136 mmol/L (135-145)
[2025-02-08 07:40] VITALS: PULSE 75; RESP 16; O2SAT 94
[2025-02-08 07:40] LABS: Glucose, Whole Blood 267 mg/dL (60-115)
[2025-02-08] MEDS: levalbuterol HCL 1.25 MG/3 ML VIAL.NEB INHALE (07:40)
[2025-02-08 07:56] VITALS: BP 164/92
[2025-02-08] MEDS: Insulin Lispro 100 UNIT/ML 3 ML VIAL SUBCUT (07:56)
[2025-02-08] MEDS: Multivitamin TABLET 1 TAB PO (07:56)
[2025-02-08] MEDS: Calcium Oyster Shell Elemental 500 MG TABLET PO (07:56)
[2025-02-08] MEDS: 0.9 % Sodium Chloride Flush 3 ML SYRINGE IVFLUSH (07:56)
[2025-02-08] MEDS: lisinopriL 20 MG TABLET PO (07:56)
--- NOTE | 2025-02-08 08:35 | P.DS_ITS ---
DS: Providers Provider Date of Service: 02/08/25 Date of admission: 02/06/25 14:16 Date of discharge: 02/08/25 Primary care physician: Philip Purcell MD DS: Diagnosis Discharge Diagnosis (1) COPD (chronic obstructive pulmonary disease): Status: Acute DS: Summary Hospital Course Hospital Course: from initial hpi: 54F PMH COPD/severe persistent asthma, hypertension, hyperlipidemia, diabetes mellitus, TEO not on CPAP, fibromyalgia, mood disorder presented with shortness of breath. Patient states symptoms began 1-2 weeks ago likely induced by seasonal allergies, came to ED 2 days prior to presentation and started on prednisone with no relief, continue shortness breast so came to ED. Denies any fever, chills. In ED noted to be wheezing bilaterally, no hypoxia. Also noted to have potassium of 2.8. hospital course: Patient was admitted for severe persistent asthma/COPD with acute decompensation. Was treated with steroids, nebs, doxycycline and shortness of breath improved. Will be discharged home on 3 more days of doxycycline and 7 more days of prednisone. She is advised to avoid allergens. For acute hypokalemia received replacement. For diabetes was continued on insulin sliding scale. For hypertension continued on lisinopril. Time Attestation Discharge Coordination Time (in mins): 32 Quality: Safe Use of Opioids Does Pt have an Active Cancer Diagnosis on the Problem List?: No Quality: Stroke Does the patient have a stroke diagnosis?: No Physical Exam Vital Signs: Vital Signs: Last Vital Signs Temp 97.0 F 02/08/25 07:24 Pulse 75 02/08/25 07:40 Resp 16 02/08/25 07:40 BP 164/92 H 02/08/25 07:56 Pulse Ox 95 02/08/25 07:24 O2 Del Method Room Air 02/08/25 07:24 BMI result Body Mass Index 27.9 General: AO X 3, no acute distress Resp: midl wheezes bilateral, no accessory muscles used CVS: S1,S2,RRR GI: soft, non tender, non distended Neuro: motor grossly intact, alert Psych: appropriate affect, appropriate insight DS: Data Data Completed and Pending Completed studies during hospitalization [Text1]: Procedures Detoxification Services for Substance Abuse Treatment (10/08/20) Labs on day of discharge: Laboratory Results - last 24 hr 02/07/25 02/07/2525 11:20 16:04 19:35 WBC RBC Hgb Hct MCV MCH MCHC RDW Plt Count MPV Absolute Nucleated RBC Nucleated RBC % (auto) Sodium Potassium Chloride Carbon Dioxide Anion Gap BUN Creatinine Estim Creat Clear Calc Estimated GFR POC Glucose 132 H 324 H 288 H Random Glucose Calcium 02/08/25 02/08/25 06:04 07:27 WBC 15.2 H RBC 4.29 Hgb 14.7 Hct 43.1 MCV 100.5 H MCH 34.3 H MCHC 34.1 RDW 13.4 Plt Count 331 MPV 10.3 Absolute Nucleated RBC 0.000 Nucleated RBC % (auto) 0.0 Sodium 136 Potassium 5.0 Chloride 104 Carbon Dioxide 22 Anion Gap 15 BUN 18 H Creatinine 0.67 Estim Creat Clear Calc 84.1 Estimated GFR > 60 POC Glucose 267 H Random Glucose 332 H Calcium 9.2 Preliminary micro results at discharge 02/06/25 12:26 Blood Culture - Preliminary Blood - Venous No growth after 24 hours. 02/06/25 12:26 Blood Culture - Preliminary Blood - Venous No growth after 24 hours. Discharge Plan Discharge Anticipated Discharge Date/Time: 02/08/25 08:33 Patient Disposition: Home, Self-Care Discharge Diagnosis: copd/asthma Referrals: Philip Purcell MD [Primary Care Provider] - 1 Week Discharge Medications: New doxycycline monohydrate 100 mg Capsule 100 mg PO Q12H Qty: 6 0RF prednisone 20 mg tablet 40 mg PO DAILY Qty: 14 0RF Continued dextroamphetamine-amphetamine 20 mg tablet 10 mg PO BID@0700,1400 (DME) blood-glucose meter [Accu-Chek Guide Glucose Meter] [facility] [place] See Rx Instructions .ROUTE .MEDSUPPLY Qty: 1 0RF Rx Instructions: As directed (DME) Accu-Chek Guide test strips Strip See Rx Instructions .ROUTE .MEDSUPPLY Qty: 100 0RF Rx Instructions: As directed (DME) lancets [Accu-Chek Multiclix Lancet] [facility] [place] See Rx Instructions .ROUTE .MEDSUPPLY Qty: 100 0RF Rx Instructions: As directed levalbuterol tartrate [Xopenex HFA] 45 mcg/actuation HFA aerosol inhaler 2 puff inhalation Q4H PRN (Reason: Wheezing) Mounjaro 5 mg/0.5 mL pen injector 5 mg subcut TH lisinopril 20 mg tablet 20 mg PO DAILY multivitamin Tablet 1 tab PO DAILY calcium carbonate 500 mg calcium (1,250 mg) Tablet 500 mg PO DAILY Estroven 155 mg Capsule 1 cap PO DAILY clonidine HCl 0.1 mg tablet 0.1 mg PO BEDTIME dextroamphetamine-amphetamine 20 mg capsule,extended release 24hr 1 cap PO DAILY@0700 Tezspire 210 mg/1.91 mL (110 mg/mL) pen injector 210 mg subcut Q4W Rx Instructions: on the of each month ( next dose 02/14/25) ipratropium-albuterol 0.5 mg-3 mg(2.5 mg base)/3 mL solution for nebulization 3 ml inhalation Q4H PRN (Reason: shortness of breath or wheezing) diphenhydramine HCl [Benadryl] 25 mg Capsule 25 mg PO BEDTIME PRN (Reason: Sleep) Discharge Orders: Discharge Order (Routine); Ordered 02/08/25 Ordered By: Leonidas Tejada Diet: Advance to usual diet Activity on Discharge: As tolerated Stand Alone Forms: Patient Portal Discharge page Print Language: Kinyarwanda Care Plan Goals: recovery Health Concerns: copd/asthma Plan of Treatment: 3 days doxy, 7 days prednisone, avoid allergens Assessment: see above
--- NOTE | 2025-02-08 09:06 | MHC.CM.PN ---
PT WILL DC HOME TODAY WITH NO SERVICES VIA PRIVATE TRANSPORT
== END 2025-02-08 09:23 | disposition home or self-care (01) | DRG 140 ==
LOC: HO.ED 13:26 → HO.EDOVER 14:21 → HO.S3 19:16
PROVIDERS: Registered Nurse Emergency; Admitting Provider Student in an Organized Health Care Education/Training Program; Emergency Provider Emergency Medicine; PCP Internal Medicine; Visit Provider Internal Medicine
DX: J44.1 Chronic obstructive pulmonary disease with (acute) exacerbation (principal); E87.21 Acute metabolic acidosis; J45.51 Severe persistent asthma with (acute) exacerbation; E11.9 Type 2 diabetes mellitus without complications; E87.6 Hypokalemia; F41.9 Anxiety disorder, unspecified; F17.210 Nicotine dependence, cigarettes, uncomplicated; Z71.6 Tobacco abuse counseling; G47.33 Obstructive sleep apnea (adult) (pediatric); M79.7 Fibromyalgia; Z20.822 Contact with and (suspected) exposure to COVID-19; Z79.899 Other long term (current) drug therapy
CPT/HCPCS: 0241U; 36415; 71046; 80048; 80053; 82803; 82947; 83605; 83735; 85025; 85027; 87040; 93005; 94640; 99285; J0696; J1650; J2919; J3475; J3480; J7120

== ENCOUNTER → 2025-02-06 11:43 | Outpatient (BNV) | payer BC, MEDICARE, SELFPAY | PROVIDERS: Emergency Provider Emergency Medicine; PCP Internal Medicine; Visit Provider Radiology Diagnostic Radiology | DX: R06.00 Dyspnea, unspecified (principal) | CPT/HCPCS: 71046 ==

== ENCOUNTER → 2025-02-06 12:59 | Outpatient (BNV) | payer BC, MEDICARE, SELFPAY | PROVIDERS: Admitting Provider Student in an Organized Health Care Education/Training Program; Emergency Provider Emergency Medicine; PCP Internal Medicine; Visit Provider Internal Medicine Cardiovascular Disease | DX: R94.31 Abnormal electrocardiogram [ECG] [EKG] (principal); E87.6 Hypokalemia | CPT/HCPCS: 93010 ==

== ENCOUNTER → 2025-02-06 14:16 | Outpatient (BNV) | payer BC, MEDICARE, SELFPAY | PROVIDERS: Admitting Provider Student in an Organized Health Care Education/Training Program; Emergency Provider Emergency Medicine; PCP Internal Medicine; Visit Provider Internal Medicine | DX: J41.0 Simple chronic bronchitis (principal) | CPT/HCPCS: 99223; 99232; 99239 ==